=== PATIENT | male | born 1945 | race Caucasian/White ===

== ENCOUNTER → 2016-12-25 | Outpatient (CLI) | payer OTHER ==
[~2016-12-25] MED LIST: /TAMS4CA PO; /WARF25TA OR; CALTRATE PO; LEVOXYL PO; LOVA40TA PO; METF500T PO; METOPROLOL PO; PRADAXA PO; PROS5TAB PO; TOPR100T OR; VESI10TA PO; WELL75TA OR; WELL75TA PO; XARE20TA PO; [UNRECOGNIZED DRUG - OTHER] PO
--- NOTE | 2016-12-28 13:43 | SLEEPCENT ---
DATE OF STUDY: 12/25/2016 ORDERING PROVIDER: MARY GRACE Victoria Nocturnal polysomnography was performed for the titration of pressure therapy in this patient with obstructive sleep apnea syndrome, intolerant of continuous positive airway pressure (CPAP). For testing on this occasion, the patient was fit with a [employer] Simplus full face mask of medium size. An initial pressure of 5 cm was applied to the circuit, and the lights were extinguished. 7 hours and 32 minutes of data were reviewed. There were only 91 minutes of sleep identified. Sleep latency was prolonged at 52 minutes. Rapid eye movement (REM) sleep was not achieved. Sleep architecture was somewhat difficult to utility porter. There was severe fragmentation. Overall sleep efficiency was 21.6%. The patient's electrocardiogram (EKG) showed an underlying sinus rhythm with an average heart rate of 57 beats per minute. Electroencephalogram (EEG) showed no focal events. Waveforms were reasonable for sleep stages encountered. Respiratory events persisted despite optimal mask fit and minimal air leak. The patient was changed early to a bilevel device. Multiple bilevel pressures were attempted. Central events emerged at even low bilevel pressure, and optimal pressure was not achieved. However, respiratory event suppression appeared best at an inspiratory pressure of 12 over expiratory pressure of 7. Due to the emergence of central events, a backup rate was necessary. IMPRESSION: Severe complex obstructive sleep apnea syndrome (G47.31, G47.33). RECOMMENDATION: Initiation of bilevel pressure at inspiratory of 12 over expiratory of 7 with a backup rate of 6 is recommended. Given the complex nature of this patient's disease, close clinical followup will be necessary and likely, he will need additional titration or possibly titration on to a pressure-regulated volume-targeted device.
== END ==
LOC: M SLEEP 19:45
PROVIDERS: ATTEND Nurse Practitioner Adult Health
DX: G47.33 Obstructive sleep apnea (adult) (pediatric) (principal)

== ENCOUNTER → 2017-01-11 | Outpatient (REF) | payer OTHER | LOC: M LAB REF 16:26 | DX: E11.40 Type 2 diabetes mellitus with diabetic neuropathy, unspecified (principal) ==

== ENCOUNTER → 2017-08-29 | Outpatient (REF) | payer OTHER ==
[~2017-08-29] MED LIST changes: -VESI10TA PO; +VESI10TA2 PO
== END ==
LOC: M LAB REF 16:11
PROVIDERS: ATTEND Family Medicine
DX: E83.52 Hypercalcemia (principal)

== ENCOUNTER → 2017-12-21 | Outpatient (REF) | payer OTHER ==
[2017-12-21 17:07] LABS: IONIZED CALCIUM 4.9 MG/DL (4.5-5.3)
[2017-12-21 17:53] LABS: PTH INTACT 107.1 PG/ML (14.0-72.0)
== END ==
LOC: M LAB REF 16:51
DX: E83.52 Hypercalcemia (principal)

== ENCOUNTER 2018-06-19 14:41 | Inpatient (IN) | payer MEDICARE, OTHER ==
[2018-06-19 15:33] LABS: BASO % 0.2 % (0.0-1.0); EOS # 0.1 10^3/uL (0.0-0.50); EOS % 0.6 % (0.0-3.0); HEMATOCRIT 16.3 % (42.0-52.0); IMMATURE GRANULOCYTE % 1.2 % (0-3.0); LYMPH # 0.9 10^3/uL (1.5-4.5); LYMPH % 7.9 % (24.0-44.0); MEAN CORPUSCULAR HEMOGLOBIN 32.3 pg (27.0-33.0); MEAN CORPUSCULAR HGB CONC 30.7 g/dl (32.0-36.5); MEAN CORPUSCULAR VOLUME 105.2 fl (80.0-96.0); MONO # 0.9 10^3/uL (0.0-0.8); MONO % 7.8 % (0.0-5.0); NEUTROPHILS # 9.6 10^3/uL (1.8-7.7); NEUTROPHILS % 82.3 % (36.0-66.0); PLATELET COUNT, AUTOMATED 267 10^3/uL (150-450); RED BLOOD COUNT 1.55 10^6/uL (4.30-6.10); RED CELL DISTRIBUTION WIDTH 17.2 % (11.5-14.5); WHITE BLOOD COUNT 11.6 10^3/uL (4.0-10.0)
[2018-06-19 15:43] LABS: ANION GAP 10 MEQ/L (8-16); BLOOD UREA NITROGEN 50 MG/DL (7-18); CALCIUM LEVEL 9.6 MG/DL (8.8-10.2); CARBON DIOXIDE LEVEL 21 MEQ/L (21-32); CHLORIDE LEVEL 109 MEQ/L (98-107); CREATININE FOR GFR 2.48 MG/DL (0.70-1.30); GLOMERULAR FILTRATION RATE 27.2 (>42); GLUCOSE, FASTING 112 MG/DL (70-100); SODIUM LEVEL 140 MEQ/L (136-145)
[2018-06-19] MEDS: NS 500 ML IV (15:45)
[2018-06-19 15:47] LABS: POTASSIUM SERUM 7.5 MEQ/L (3.5-5.1)
[2018-06-19 15:52] LABS: INR 1.09; PROTHROMBIN TIME 14.2 SECONDS (12.1-14.4)
[2018-06-19] MEDS: PANTOPRAZOLE SODIUM 40 MG in D5W 50 ML IV ×3 (16:03→22:55)
[2018-06-19] MEDS: PANTOPRAZOLE 40MG INJ (PROTONIX) (C9113) IV (16:03)
[2018-06-19 16:53] LABS: LACTIC ACID SEPSIS PROTOCOL 1.5 MMOL/L (0.4-2.0)
[2018-06-19 16:53] LABS: SLIDE REVIEW Report; SOURCE PERIPHERAL SMEAR
[2018-06-19 16:54] LABS: ALBUMIN 3.4 GM/DL (3.2-5.2); ALBUMIN/GLOBULIN RATIO 1.17 (1.00-1.93); ALKALINE PHOSPHATASE 52 U/L (45-117); ALT/SGPT 14 U/L (12-78); AST/SGOT 14 U/L (7-37); BILIRUBIN,DIRECT 0.1 MG/DL (0.0-0.2); BILIRUBIN,TOTAL 0.4 MG/DL (0.2-1.0); CK-MB VALUE MASS 4.5 NG/ML (<3.6); CPK CREATINE PHOSPHOKINASE 91 U/L (39-308); MB/CK RELATIVE INDEX 4.94 (< OR =4); REASON FOR REVIEW RBC MORPHOLOGY; TOTAL PROTEIN 6.3 GM/DL (6.4-8.2); TROPONIN I 0.32 NG/ML (< 0.10)
[2018-06-19] MEDS: GABAPENTIN 300 MG CAP PO ×2 (17:00→20:23)
[2018-06-19 17:01] LABS: POTASSIUM SERUM 5.7 MEQ/L (3.5-5.1)
[2018-06-19] MEDS ORDERED: ONDANSETRON 4MG/2ML VIAL (J2405) IV (17:45)
[2018-06-19] MEDS: HumaLOG INSULIN (NovoLOG) PER UNIT SC ×2 (18:00→23:52)
[2018-06-19] MEDS ORDERED: GLUCAGON FOR INJ 1 MG VIAL (J1610) SC (19:00)
[2018-06-19] MEDS ORDERED: DEXTROSE 50% 50 ML SYRINGE IV (19:00)
[2018-06-19] MEDS ORDERED: GLUCOSE 4 GM CHEW TABLET PO (19:00)
[2018-06-19 20:09] LABS: BEDSIDE GLUCOSE 100 MG/DL (83-110)
[2018-06-19] MEDS ORDERED: ALLOPURINOL 100 MG TAB PO (21:00)
[2018-06-19 21:20] LABS: OSMOLALITY URINE 523 MOSM/KG (500-800)
[2018-06-19 21:33] LABS: APPEARANCE, URINE CLEAR (CLEAR); BACTERIA, URINE AUTO NEGATIVE (NEGATIVE); BILIRUBIN, URINE AUTO NEGATIVE (NEGATIVE); BLOOD, URINE BLOOD NEGATIVE (NEGATIVE); COLOR, URINE YELLOW (YELLOW); GLUCOSE, URINE (UA) AUTO NEGATIVE (NEGATIVE); KETONE, URINE AUTO NEGATIVE (NEGATIVE); LEUKOCYTE ESTERASE, URINE AUTO NEGATIVE (NEGATIVE); MUCUS, URINE SMALL (NEGATIVE); NITRITE, URINE AUTO NEGATIVE (NEGATIVE); PROTEIN, URINE AUTO NEGATIVE (NEGATIVE); RBC, URINE AUTO 0 /HPF (0-3); SPECIFIC GRAVITY URINE AUTO 1.014 (1.002-1.035); SQUAMOUS EPITHELIAL CELL UR AU 0 /HPF (0-6); UROBILINOGEN, URINE AUTO 0.2 mg/dL (0.0-2.0); WBC, URINE AUTO 2 /HPF (0-3)
[2018-06-19 22:15] LABS: CHLORIDE,RANDOM URINE 80 MEQ/L; POTASSIUM RANDOM URINE 64.3 MEQ/L; SODIUM,RANDOM URINE 71 MEQ/L
[2018-06-19 23:15] LABS: CPK CREATINE PHOSPHOKINASE 100 U/L (39-308); FREE THYROXINE INDEX 1.2 % (1.4-3.8); T UPTAKE 33 % (33-40); THYROXINE (T4) 3.5 UG/DL (4.5-12.0); TROPONIN I 0.35 NG/ML (< 0.10)
[2018-06-19 23:20] LABS: CK-MB VALUE MASS 3.8 NG/ML (<3.6)
[2018-06-19 23:26] LABS: BEDSIDE GLUCOSE 91 MG/DL (83-110)
[2018-06-20 01:37] LABS: ANION GAP 9 MEQ/L (8-16); BLOOD UREA NITROGEN 52 MG/DL (7-18); CARBON DIOXIDE LEVEL 22 MEQ/L (21-32); CHLORIDE LEVEL 110 MEQ/L (98-107); GLOMERULAR FILTRATION RATE 26.9 (>42); GLUCOSE, FASTING 92 MG/DL (70-100); SODIUM LEVEL 141 MEQ/L (136-145)
[2018-06-20 01:38] LABS: POTASSIUM SERUM 5.3 MEQ/L (3.5-5.1)
[2018-06-20] MEDS: PANTOPRAZOLE SODIUM 40 MG in D5W 50 ML IV ×5 (03:56→23:03)
[2018-06-20 04:09] LABS: HEMATOCRIT 24.5 % (42.0-52.0)
[2018-06-20 04:28] LABS: ANION GAP 8 MEQ/L (8-16); BLOOD UREA NITROGEN 49 MG/DL (7-18); CALCIUM LEVEL 8.5 MG/DL (8.8-10.2); CARBON DIOXIDE LEVEL 23 MEQ/L (21-32); CHLORIDE LEVEL 112 MEQ/L (98-107); CK-MB VALUE MASS 4.2 NG/ML (<3.6); CPK CREATINE PHOSPHOKINASE 116 U/L (39-308); CREATININE FOR GFR 2.38 MG/DL (0.70-1.30); GLOMERULAR FILTRATION RATE 28.5 (>42); GLUCOSE, FASTING 85 MG/DL (70-100); MB/CK RELATIVE INDEX 3.62 (< OR =4); SODIUM LEVEL 143 MEQ/L (136-145); TROPONIN I 0.42 NG/ML (< 0.10)
[2018-06-20 04:30] LABS: POTASSIUM SERUM 5.2 MEQ/L (3.5-5.1)
[2018-06-20] MEDS: HumaLOG INSULIN (NovoLOG) PER UNIT SC ×4 (05:03→21:00)
[2018-06-20] MEDS: LEVOTHYROXINE 88MCG TABLET (0.088 MG) PO (05:16)
[2018-06-20 08:32] LABS: BASO % 0.4 % (0.0-1.0); EOS # 0.3 10^3/uL (0.0-0.50); EOS % 2.4 % (0.0-3.0); HEMATOCRIT 24.3 % (42.0-52.0); HEMOGLOBIN 8.2 g/dl (13.5-17.5); IMMATURE GRANULOCYTE % 0.7 % (0-3.0); LYMPH # 1.1 10^3/uL (1.5-4.5); LYMPH % 10.4 % (24.0-44.0); MEAN CORPUSCULAR HEMOGLOBIN 32.2 pg (27.0-33.0); MEAN CORPUSCULAR HGB CONC 33.7 g/dl (32.0-36.5); MEAN CORPUSCULAR VOLUME 95.3 fl (80.0-96.0); MONO # 0.8 10^3/uL (0.0-0.8); MONO % 7.8 % (0.0-5.0); NEUTROPHILS % 78.3 % (36.0-66.0); PLATELET COUNT, AUTOMATED 190 10^3/uL (150-450); RED BLOOD COUNT 2.55 10^6/uL (4.30-6.10); RED CELL DISTRIBUTION WIDTH 16.1 % (11.5-14.5); WHITE BLOOD COUNT 10.2 10^3/uL (4.0-10.0)
[2018-06-20] MEDS: METOPROLOL SUCC (TopROL XL) 100MG *XL* TAB PO ×2 (08:55→20:12)
[2018-06-20] MEDS: SOLIFENACIN 5 MG TAB PO (08:55)
[2018-06-20] MEDS: GABAPENTIN 300 MG CAP PO ×4 (08:55→20:12)
[2018-06-20 08:58] LABS: IMMEDIATE SPIN CROSSMATCH 1 6
[2018-06-20 09:02] LABS: ALBUMIN 3.3 GM/DL (3.2-5.2); ALBUMIN/GLOBULIN RATIO 1.06 (1.00-1.93); ALKALINE PHOSPHATASE 50 U/L (45-117); ALT/SGPT 14 U/L (12-78); ANION GAP 8 MEQ/L (8-16); AST/SGOT 16 U/L (7-37); BILIRUBIN,TOTAL 0.7 MG/DL (0.2-1.0); BLOOD UREA NITROGEN 48 MG/DL (7-18); CALCIUM LEVEL 8.6 MG/DL (8.8-10.2); CARBON DIOXIDE LEVEL 24 MEQ/L (21-32); CHLORIDE LEVEL 110 MEQ/L (98-107); CREATININE FOR GFR 2.41 MG/DL (0.70-1.30); GLOMERULAR FILTRATION RATE 28.1 (>42); GLUCOSE, FASTING 93 MG/DL (70-100); MAGNESIUM LEVEL 1.9 MG/DL (1.8-2.4); PHOSPHORUS LEVEL 3.1 MG/DL (2.5-4.9); SODIUM LEVEL 142 MEQ/L (136-145); TOTAL PROTEIN 6.4 GM/DL (6.4-8.2)
[2018-06-20 10:12] LABS: ESTIMATED AVERAGE GLUCOSE 94 MG/DL (60-110); HEMOGLOBIN A1c 4.9 %
[2018-06-20 12:06] LABS: BEDSIDE GLUCOSE 92 MG/DL (83-110)
[2018-06-20 12:17] LABS: HEMATOCRIT 29.5 % (42.0-52.0); HEMOGLOBIN 9.7 g/dl (13.5-17.5)
[2018-06-20 12:32] LABS: ANION GAP 7 MEQ/L (8-16); BLOOD UREA NITROGEN 46 MG/DL (7-18); CALCIUM LEVEL 8.6 MG/DL (8.8-10.2); CARBON DIOXIDE LEVEL 24 MEQ/L (21-32); CHLORIDE LEVEL 110 MEQ/L (98-107); CREATININE FOR GFR 2.29 MG/DL (0.70-1.30); GLOMERULAR FILTRATION RATE 29.8 (>42); GLUCOSE, FASTING 91 MG/DL (70-100); SODIUM LEVEL 141 MEQ/L (136-145)
[2018-06-20 12:38] LABS: CK-MB VALUE MASS 3.7 NG/ML (<3.6); CPK CREATINE PHOSPHOKINASE 142 U/L (39-308); TROPONIN I 0.32 NG/ML (< 0.10)
[2018-06-20 12:44] LABS: POTASSIUM SERUM 5.4 MEQ/L (3.5-5.1)
[2018-06-20 12:54] LABS: CREATININE,RANDOM URINE 91.6 MG/DL
[2018-06-20 12:54] LABS: SODIUM,RANDOM URINE 114 MEQ/L
[2018-06-20] MEDS: FINASTERIDE 5 MG TAB PO (13:00)
[2018-06-20] MEDS: TAMSULOSIN 0.4 MG CAP PO (13:00)
[2018-06-20 16:36] LABS: HEMATOCRIT 29.6 % (42.0-52.0); HEMOGLOBIN 9.9 g/dl (13.5-17.5)
[2018-06-20] MEDS ORDERED: PROPOFOL 200 MG/20 ML VIAL As Ordered ×2 (18:23)
[2018-06-20] MEDS ORDERED: LIDOCAINE 2% INJ 100 MG/5 ML SDV (FOR ANES.) As Ordered (18:23)
[2018-06-20] MEDS ORDERED: fentaNYL 100 MCG/2 ML INJECTION (J3010) As Ordered (18:23)
[2018-06-20] MEDS ORDERED: PHENYLephrine HCL 500 MCG/5 ML (100MCG/ML) SYRINGE (J2370) As Ordered ×2 (18:24→18:28)
[2018-06-20] MEDS ORDERED: ePHEDrine SULFATE 25 MG/5 ML(5MG/ML) SYRINGE As Ordered (18:44)
[2018-06-20] MEDS: LR 1,000 ML IV (19:00)
[2018-06-20 19:11] LABS: BEDSIDE GLUCOSE 88 MG/DL (83-110)
[2018-06-20 19:59] LABS: HEMOGLOBIN 9.3 g/dl (13.5-17.5)
[2018-06-20] MEDS: ATORVASTATIN 20 MG TAB PO (20:12)
[2018-06-20 21:14] LABS: BEDSIDE GLUCOSE 88 MG/DL (83-110)
[2018-06-21 00:16] LABS: HEMATOCRIT 26.5 % (42.0-52.0); HEMOGLOBIN 8.8 g/dl (13.5-17.5)
[2018-06-21 04:07] LABS: HEMATOCRIT 26.6 % (42.0-52.0); HEMOGLOBIN 8.6 g/dl (13.5-17.5)
[2018-06-21] MEDS: PANTOPRAZOLE SODIUM 40 MG in D5W 50 ML IV (04:09)
[2018-06-21] MEDS: LEVOTHYROXINE 88MCG TABLET (0.088 MG) PO (05:09)
[2018-06-21] MEDS: HumaLOG INSULIN (NovoLOG) PER UNIT SC ×4 (07:30→20:12)
[2018-06-21 07:39] LABS: BEDSIDE GLUCOSE 86 MG/DL (83-110)
[2018-06-21 07:49] LABS: BASO % 0.4 % (0.0-1.0); EOS # 0.3 10^3/uL (0.0-0.50); EOS % 4.1 % (0.0-3.0); HEMOGLOBIN 8.8 g/dl (13.5-17.5); IMMATURE GRANULOCYTE % 0.6 % (0-3.0); LYMPH # 0.9 10^3/uL (1.5-4.5); LYMPH % 11.5 % (24.0-44.0); MEAN CORPUSCULAR HEMOGLOBIN 31.5 pg (27.0-33.0); MEAN CORPUSCULAR HGB CONC 32.6 g/dl (32.0-36.5); MEAN CORPUSCULAR VOLUME 96.8 fl (80.0-96.0); MONO # 0.7 10^3/uL (0.0-0.8); MONO % 8.9 % (0.0-5.0); NEUTROPHILS % 74.5 % (36.0-66.0); PLATELET COUNT, AUTOMATED 169 10^3/uL (150-450); RED BLOOD COUNT 2.79 10^6/uL (4.30-6.10); RED CELL DISTRIBUTION WIDTH 15.6 % (11.5-14.5); WHITE BLOOD COUNT 8.1 10^3/uL (4.0-10.0)
[2018-06-21 08:32] LABS: ALKALINE PHOSPHATASE 50 U/L (45-117); ALT/SGPT 15 U/L (12-78); ANION GAP 10 MEQ/L (8-16); AST/SGOT 21 U/L (7-37); BILIRUBIN,TOTAL 0.7 MG/DL (0.2-1.0); BLOOD UREA NITROGEN 36 MG/DL (7-18); CALCIUM LEVEL 8.1 MG/DL (8.8-10.2); CARBON DIOXIDE LEVEL 22 MEQ/L (21-32); CHLORIDE LEVEL 109 MEQ/L (98-107); CREATININE FOR GFR 2.01 MG/DL (0.70-1.30); GLOMERULAR FILTRATION RATE 34.6 (>42); GLUCOSE, FASTING 84 MG/DL (70-100); POTASSIUM SERUM 4.4 MEQ/L (3.5-5.1); SODIUM LEVEL 141 MEQ/L (136-145)
[2018-06-21] MEDS: SOLIFENACIN 5 MG TAB PO (08:33)
[2018-06-21] MEDS: FINASTERIDE 5 MG TAB PO (08:33)
[2018-06-21] MEDS: SUCRALFATE 1 GM TAB PO ×4 (08:34→20:12)
[2018-06-21] MEDS: PANTOPRAZOLE 40MG TAB (PROTONIX) PO ×2 (08:34→20:12)
[2018-06-21] MEDS: GABAPENTIN 300 MG CAP PO ×4 (08:34→20:12)
[2018-06-21] MEDS: TAMSULOSIN 0.4 MG CAP PO (08:34)
[2018-06-21] MEDS: METOPROLOL SUCC (TopROL XL) 100MG *XL* TAB PO ×2 (08:34→20:14)
[2018-06-21 11:34] LABS: BEDSIDE GLUCOSE 81 MG/DL (83-110)
[2018-06-21 14:43] LABS: HEMATOCRIT 29.2 % (42.0-52.0); HEMOGLOBIN 9.7 g/dl (13.5-17.5)
[2018-06-21 15:14] LABS: TROPONIN I 0.19 NG/ML (< 0.10)
[2018-06-21] MEDS ORDERED: SLF 3 ML SYR IV (16:00)
[2018-06-21] MEDS ORDERED: SODIUM CHLORIDE 0.9% INJ 10 ML SYR IV (16:00)
[2018-06-21 17:26] LABS: BEDSIDE GLUCOSE 108 MG/DL (83-110)
[2018-06-21 20:06] LABS: BEDSIDE GLUCOSE 101 MG/DL (83-110)
[2018-06-21] MEDS: ATORVASTATIN 20 MG TAB PO (20:12)
[2018-06-21] MEDS: SLF 3 ML SYR IV (20:21)
[2018-06-21] MEDS: SODIUM CHLORIDE 0.9% INJ 10 ML SYR IV (20:21)
[2018-06-21 20:41] LABS: HEMATOCRIT 29.9 % (42.0-52.0); HEMOGLOBIN 9.7 g/dl (13.5-17.5)
[2018-06-22 03:42] LABS: BASO % 0.4 % (0.0-1.0); EOS # 0.5 10^3/uL (0.0-0.50); EOS % 4.5 % (0.0-3.0); HEMATOCRIT 28.2 % (42.0-52.0); HEMOGLOBIN 9.2 g/dl (13.5-17.5); IMMATURE GRANULOCYTE % 0.5 % (0-3.0); LYMPH % 9.7 % (24.0-44.0); MEAN CORPUSCULAR HEMOGLOBIN 31.5 pg (27.0-33.0); MEAN CORPUSCULAR HGB CONC 32.6 g/dl (32.0-36.5); MEAN CORPUSCULAR VOLUME 96.6 fl (80.0-96.0); MONO # 0.9 10^3/uL (0.0-0.8); MONO % 9.1 % (0.0-5.0); NEUTROPHILS # 7.7 10^3/uL (1.8-7.7); NEUTROPHILS % 75.8 % (36.0-66.0); PLATELET COUNT, AUTOMATED 185 10^3/uL (150-450); RED BLOOD COUNT 2.92 10^6/uL (4.30-6.10); RED CELL DISTRIBUTION WIDTH 14.9 % (11.5-14.5); WHITE BLOOD COUNT 10.1 10^3/uL (4.0-10.0)
[2018-06-22 04:12] LABS: ALBUMIN/GLOBULIN RATIO 0.97 (1.00-1.93); ALKALINE PHOSPHATASE 61 U/L (45-117); ALT/SGPT 18 U/L (12-78); ANION GAP 9 MEQ/L (8-16); AST/SGOT 26 U/L (7-37); BILIRUBIN,TOTAL 0.5 MG/DL (0.2-1.0); BLOOD UREA NITROGEN 30 MG/DL (7-18); CALCIUM LEVEL 7.8 MG/DL (8.8-10.2); CARBON DIOXIDE LEVEL 24 MEQ/L (21-32); CHLORIDE LEVEL 107 MEQ/L (98-107); CREATININE FOR GFR 2.02 MG/DL (0.70-1.30); GLOMERULAR FILTRATION RATE 34.5 (>42); GLUCOSE, FASTING 89 MG/DL (70-100); MAGNESIUM LEVEL 1.9 MG/DL (1.8-2.4); POTASSIUM SERUM 4.5 MEQ/L (3.5-5.1); SODIUM LEVEL 140 MEQ/L (136-145); TOTAL PROTEIN 6.1 GM/DL (6.4-8.2)
[2018-06-22] MEDS: SLF 3 ML SYR IV (06:43)
[2018-06-22] MEDS: SUCRALFATE 1 GM TAB PO ×2 (06:43→12:15)
[2018-06-22] MEDS: SODIUM CHLORIDE 0.9% INJ 10 ML SYR IV (06:43)
[2018-06-22] MEDS: LEVOTHYROXINE 88MCG TABLET (0.088 MG) PO (06:43)
[2018-06-22] MEDS: HumaLOG INSULIN (NovoLOG) PER UNIT SC ×2 (07:30→12:00)
[2018-06-22 08:45] LABS: BEDSIDE GLUCOSE 96 MG/DL (83-110)
[2018-06-22] MEDS: GABAPENTIN 300 MG CAP PO ×2 (08:49→12:15)
[2018-06-22] MEDS: TAMSULOSIN 0.4 MG CAP PO (08:49)
[2018-06-22] MEDS: SOLIFENACIN 5 MG TAB PO (08:49)
[2018-06-22] MEDS: FINASTERIDE 5 MG TAB PO (08:49)
[2018-06-22] MEDS: PANTOPRAZOLE 40MG TAB (PROTONIX) PO (08:49)
[2018-06-22] MEDS: METOPROLOL SUCC (TopROL XL) 100MG *XL* TAB PO (08:54)
[2018-06-22 12:10] LABS: BEDSIDE GLUCOSE 95 MG/DL (83-110)
== END 2018-06-22 13:46 | disposition home or self-care (01) | DRG 377 ==
LOC: M PCU 06-21 15:40 → M ED 14:41 → M ED INP 17:44 → M ICU 19:18
PROC: 0W3P8ZZ Control Bleeding in Gastrointestinal Tract, Via Natural or Artificial Opening Endoscopic (ICD-10-PCS; principal; 2018-06-20 16:30)
PROC: 02HV33Z Insertion of Infusion Device into Superior Vena Cava, Percutaneous Approach (ICD-10-PCS; 2018-06-20 18:06)
PROC: 30233N1 Transfusion of Nonautologous Red Blood Cells into Peripheral Vein, Percutaneous Approach (ICD-10-PCS; 2018-06-20 18:06)
DX: K31.811 Angiodysplasia of stomach and duodenum with bleeding (principal); R57.8 Other shock; D62 Acute posthemorrhagic anemia; N17.9 Acute kidney failure, unspecified; I48.0 Paroxysmal atrial fibrillation; I25.10 Atherosclerotic heart disease of native coronary artery without angina pectoris; M81.0 Age-related osteoporosis without current pathological fracture; N18.3 Chronic kidney disease, stage 3 (moderate); G47.33 Obstructive sleep apnea (adult) (pediatric); E03.9 Hypothyroidism, unspecified; E87.5 Hyperkalemia; N40.1 Benign prostatic hyperplasia with lower urinary tract symptoms; J44.9 Chronic obstructive pulmonary disease, unspecified; G25.81 Restless legs syndrome; E11.51 Type 2 diabetes mellitus with diabetic peripheral angiopathy without gangrene; Z87.891 Personal history of nicotine dependence; Z79.01 Long term (current) use of anticoagulants; Z79.899 Other long term (current) drug therapy; I25.2 Old myocardial infarction; Z95.1 Presence of aortocoronary bypass graft; Z91.19 Patient's noncompliance with other medical treatment and regimen; E11.22 Type 2 diabetes mellitus with diabetic chronic kidney disease; M1A.30X0 Chronic gout due to renal impairment, unspecified site, without tophus (tophi)

== ENCOUNTER → 2018-06-30 | Outpatient (REF) | payer MEDICARE, OTHER ==
[2018-06-30 13:52] LABS: VITAMIN B12 LEVEL 409 PG/ML
[2018-06-30 14:01] LABS: FERRITIN 12 NG/ML (26-388); IRON (FE) 25 UG/DL (65-175); PERCENT SATURATION 6.1 % (19.7-50.0); TOTAL IRON BINDING CAPACITY 412 UG/DL (250-450)
== END ==
LOC: M LAB REF 13:22
DX: D64.9 Anemia, unspecified (principal)
CPT/HCPCS: 82746

== ENCOUNTER → 2018-08-04 | Outpatient (REF) | payer OTHER ==
[2018-08-04 14:00] LABS: APPEARANCE, URINE CLEAR (CLEAR); BACTERIA, URINE AUTO NEGATIVE (NEGATIVE); BILIRUBIN, URINE AUTO NEGATIVE (NEGATIVE); BLOOD, URINE BLOOD NEGATIVE (NEGATIVE); COLOR, URINE YELLOW (YELLOW); GLUCOSE, URINE (UA) AUTO NEGATIVE (NEGATIVE); KETONE, URINE AUTO NEGATIVE (NEGATIVE); LEUKOCYTE ESTERASE, URINE AUTO NEGATIVE (NEGATIVE); MUCUS, URINE SMALL (NEGATIVE); NITRITE, URINE AUTO NEGATIVE (NEGATIVE); PROTEIN, URINE AUTO NEGATIVE (NEGATIVE); RBC, URINE AUTO 2 /HPF (0-3); SPECIFIC GRAVITY URINE AUTO 1.019 (1.002-1.035); SQUAMOUS EPITHELIAL CELL UR AU 0 /HPF (0-6); UROBILINOGEN, URINE AUTO 0.2 mg/dL (0.0-2.0); WBC, URINE AUTO 1 /HPF (0-3)
== END ==
LOC: M SMT 13:08
DX: N40.1 Benign prostatic hyperplasia with lower urinary tract symptoms (principal)

== ENCOUNTER 2018-08-08 08:25 | Day surgery (SDC) | payer OTHER, MEDICARE ==
[~2018-08-08 08:25] MED LIST changes: -/TAMS4CA PO; -/WARF25TA OR; -CALTRATE PO; -LEVOXYL PO; -LOVA40TA PO; -METF500T PO; -METOPROLOL PO; +PHENYLEPHRINE HCL 10 % OPHTH. SOL 5ML OS; -PRADAXA PO; -PROS5TAB PO; -TOPR100T OR; -VESI10TA2 PO; -WELL75TA OR; -WELL75TA PO; -XARE20TA PO; -[UNRECOGNIZED DRUG - OTHER] PO
[2018-08-08 09:45] LABS: BEDSIDE GLUCOSE 105 MG/DL (83-110)
[2018-08-08] MEDS: PHENYLEPHRINE 2.5% OPHTH SOL 2ML OS (09:45)
[2018-08-08] MEDS: TROPICAMIDE 1% OPHTH SOLN 2ML OS (09:45)
[2018-08-08] MEDS: OFLOXACIN 0.3 % (OCUFLOX) OPTH SOL 5ML OS (09:45)
[2018-08-08] MEDS: CYCLOPENTOLATE 2% OPHTH SOLN 2ML BTL OS (09:45)
[2018-08-08] MEDS: LIDOCAINE 3.5 % 1ML OPHTH TOPICAL GEL OU (09:46)
[2018-08-08] MEDS ORDERED: MIDAZOLAM INJ 2 MG/2 ML VIAL (J2250) As Ordered (10:11)
[2018-08-08] MEDS: POVIDONE-IODINE 5% OPHTH PREP SOL 30ML As Ordered (10:54)
[2018-08-08] MEDS: LIDOCAINE 1% SDV 5 ML VIAL As Ordered (11:05)
[2018-08-08] MEDS: BSS with VANC/TOB/EPI for EYE CASES IR (11:05)
[2018-08-08] MEDS: HEALON DUET (HEALON 10MG/ML 0.55ML & HEALON ENDOCOAT 30MG/ML 0.85ML) As Ordered (11:07)
[2018-08-08] MEDS: TRIAMCINOLONE PRES FR 40 MG/ML 1ML(TRIESENCE)(OR EYE ONLY)(J3300 PER 1MG) As Ordered (11:09)
[2018-08-08] MEDS: MOXIFLOXACIN IN BSS 0.25MG/0.25ML INTRACAMERAL INJ (OR EYE ONLY)(J2280) As Ordered (11:10)
== END 2018-08-08 12:02 | disposition home or self-care (01) ==
LOC: M SDC 08:25
DX: H25.9 Unspecified age-related cataract (principal); I25.10 Atherosclerotic heart disease of native coronary artery without angina pectoris; I25.2 Old myocardial infarction; I10 Essential (primary) hypertension; E03.9 Hypothyroidism, unspecified; N40.0 Benign prostatic hyperplasia without lower urinary tract symptoms; Z79.02 Long term (current) use of antithrombotics/antiplatelets; Z79.899 Other long term (current) drug therapy; G47.30 Sleep apnea, unspecified; E11.9 Type 2 diabetes mellitus without complications
CPT/HCPCS: 66984

== ENCOUNTER 2018-08-16 08:14 | Day surgery (SDC) | payer OTHER, MEDICARE ==
[~2018-08-16 08:14] MED LIST changes: +ACETAMINOPHEN 325 MG TAB PO; +PHENYLEPHRINE HCL 10 % OPHTH. SOL 5ML OD; -PHENYLEPHRINE HCL 10 % OPHTH. SOL 5ML OS
[2018-08-16] MEDS: CYCLOPENTOLATE 2% OPHTH SOLN 2ML BTL OD (08:39)
[2018-08-16] MEDS: PHENYLEPHRINE 2.5% OPHTH SOL 2ML OD (08:40)
[2018-08-16] MEDS: LIDOCAINE 3.5 % 1ML OPHTH TOPICAL GEL OU (08:40)
[2018-08-16] MEDS: OFLOXACIN 0.3 % (OCUFLOX) OPTH SOL 5ML OD (08:40)
[2018-08-16] MEDS: TROPICAMIDE 1% OPHTH SOLN 2ML OD (08:40)
[2018-08-16] MEDS ORDERED: MIDAZOLAM INJ 2 MG/2 ML VIAL (J2250) As Ordered (09:01)
[2018-08-16] MEDS ORDERED: fentaNYL 100 MCG/2 ML INJECTION (J3010) As Ordered (09:01)
[2018-08-16] MEDS: TRIAMCINOLONE PRES FR 40 MG/ML 1ML(TRIESENCE)(OR EYE ONLY)(J3300 PER 1MG) As Ordered (09:28)
[2018-08-16] MEDS: LIDOCAINE 1% SDV 5 ML VIAL As Ordered (09:28)
[2018-08-16] MEDS: POVIDONE-IODINE 5% OPHTH PREP SOL 30ML As Ordered (09:28)
[2018-08-16] MEDS: HEALON DUET (HEALON 10MG/ML 0.55ML & HEALON ENDOCOAT 30MG/ML 0.85ML) As Ordered (09:29)
[2018-08-16] MEDS: MOXIFLOXACIN IN BSS 0.25MG/0.25ML INTRACAMERAL INJ (OR EYE ONLY)(J2280) As Ordered (09:29)
[2018-08-16] MEDS: BSS with VANC/TOB/EPI for EYE CASES IR (09:29)
[2018-08-16] MEDS: ACETYLCHOLINE OPHTH SOLN 1% 2ML (MIOCHOL-E) As Ordered (09:32)
[2018-08-16] MEDS ORDERED: TRIMETHOBENZAMIDE 300 MG CAP PO (10:00)
[2018-08-16] MEDS: AcetaZOLAMIDE 500 MG ER CAP PO (10:02)
== END 2018-08-16 10:30 | disposition home or self-care (01) ==
LOC: M SDC 08:14
DX: H25.9 Unspecified age-related cataract (principal); H21.81 Floppy iris syndrome; M60.9 Myositis, unspecified; I25.2 Old myocardial infarction; I25.10 Atherosclerotic heart disease of native coronary artery without angina pectoris; I10 Essential (primary) hypertension; E11.9 Type 2 diabetes mellitus without complications; G47.30 Sleep apnea, unspecified; Z79.02 Long term (current) use of antithrombotics/antiplatelets; E03.9 Hypothyroidism, unspecified; N40.0 Benign prostatic hyperplasia without lower urinary tract symptoms
CPT/HCPCS: 66982

== ENCOUNTER 2018-10-24 12:48 | Day surgery (SDC) | payer OTHER ==
[~2018-10-24 12:48] MED LIST changes: -ACETAMINOPHEN 325 MG TAB PO; +LIDOCAINE 2% INJ 100 MG/5 ML SDV (FOR ANES.) As Ordered; -PHENYLEPHRINE HCL 10 % OPHTH. SOL 5ML OD; +PROPOFOL 200 MG/20 ML VIAL As Ordered
[2018-10-24] MEDS: NS 1,000 ML IV (13:41)
== END 2018-10-24 15:16 | disposition home or self-care (01) ==
LOC: M OPP 15:16
DX: D50.9 Iron deficiency anemia, unspecified (principal); I50.20 Unspecified systolic (congestive) heart failure; F32.9 Major depressive disorder, single episode, unspecified; I25.9 Chronic ischemic heart disease, unspecified; E07.9 Disorder of thyroid, unspecified; J44.9 Chronic obstructive pulmonary disease, unspecified
CPT/HCPCS: 43239

== ENCOUNTER → 2021-02-18 | Outpatient (CLI) | payer OTHER ==
[~2021-02-18] MED LIST changes: +ALEV220T26 PO; +ALLO10TA PO; +CALTRATE PO; +CALTTAB5 PO; +COUM1TAB18 OR; +DOXY1CAP60 PO; +ENAL1TAB46 PO; +ENAL5TA PO; +FINA5TAB2 PO; +FLOM0.4C39 PO; +GABA-282 PO; +LEVO88TA24 PO; +LEVOXYL PO; -LIDOCAINE 2% INJ 100 MG/5 ML SDV (FOR ANES.) As Ordered; +LOVA40TA PO; +METF500T PO; +METO-745 PO; +METO50TA7 PO; +METOPROLOL PO; +PRADAXA PO; -PROPOFOL 200 MG/20 ML VIAL As Ordered; +PROS5TAB PO; +VESI10TA2 PO; +WELL75TA OR; +WELL75TA PO; +XARE15TA PO; +XARE20TA PO; +[UNRECOGNIZED DRUG - OTHER] PO
--- NOTE | 2021-02-18 19:16 | REP ---
INDICATION: ACUTE KIDNEY FAILURE, KIDNEY FAILURE. COMPARISON: 06/20/2018. TECHNIQUE: Multiple sonographic images of the kidneys. FINDINGS: The right kidney measures 9.3 x 4.4 x 5.4 cm. The left kidney measures 10.2 x 3.6 x 4.3 cm. The kidneys are in the low normal size range. There is no hydronephrosis or hydroureter on the right or the left. There are no renal calculi. There are no solid or cystic renal masses except for a 6 mm Bosniak type 1 cyst in the lower pole of the left kidney laterally. IMPRESSION: 6 mm left renal cortical cyst. The kidneys are in the low normal size range. Otherwise, negative renal ultrasound. <Electronically signed by Ash Mcdonough > 02/18/21 [id number]
--- NOTE | 2021-02-18 19:19 | REP ---
INDICATION: ACUTE KIDNEY FAILURE, KIDNEY FAILURE. COMPARISON: None. TECHNIQUE: Multiple sonographic images of the bladder. FINDINGS: The prevoid bladder volume is 68 mL. The bladder is incompletely filled. No ureteral jets could be identified. No definite bladder wall nodules or masses are identified, however, the study is insensitive as the bladder is nondistended. The postvoid bladder volume is 12 mL. The post void residual is 18%, however, this is artifactually high because the bladder is incompletely filled on the prevoid study. IMPRESSION: Incompletely filled bladder on the prevoid study. Therefore evaluation of ureteral jets, nodules or masses is insensitive and the postvoid residual % is artifactually high. <Electronically signed by Ash Mcdonough > 02/18/21 [id number]
== END ==
LOC: M RAD 10:54
PROVIDERS: ATTEND Internal Medicine Nephrology
DX: N28.1 Cyst of kidney, acquired (principal); N17.9 Acute kidney failure, unspecified; I12.9 Hypertensive chronic kidney disease with stage 1 through stage 4 chronic kidney disease, or unspecified chronic kidney disease; R31.9 Hematuria, unspecified; I48.20 Chronic atrial fibrillation, unspecified

== ENCOUNTER → 2021-02-27 | Outpatient (REF) | payer OTHER ==
[2021-02-27 19:18] LABS: COMPLEMENT C3 120 MG/DL (90-180); COMPLEMENT C4 27 MG/DL (10-40); TOTAL PROTEIN 7.7 GM/DL (6.4-8.2)
[2021-02-27 19:30] LABS: HEPATITIS B SURFACE ANTIBODY NEGATIVE (POSITIVE)
[2021-02-27 19:40] LABS: HEPATITIS B SURFACE ANTIGEN NEGATIVE (NEGATIVE)
[2021-02-27 20:08] LABS: HEPATITIS C VIRUS ABY INDEX < 0.0 INDEX (<0.8)
[2021-02-27 20:09] LABS: HEPATITIS B CORE ANTIBODY IGM NEGATIVE (NEGATIVE)
[2021-03-02 11:00] LABS: ALBUMIN 3.84 GM/DL (3.29-5.55); ALBUMIN % 49.9 % (55.8-66.1); ALPHA-1-GLOBULIN % 4.9 % (2.9-4.9); ALPHA-1-GLOBULINS 0.38 GM/DL (0.17-0.41); ALPHA-2-GLOBULINS 1.15 GM/DL (0.42-0.99); ALPHA-2-GLOBULINS % 14.9 % (7.1-11.8); BETA-1-GLOBULINS 0.46 GM/DL (0.28-0.60)
[2021-03-02 11:01] LABS: BETA-2-GLOBULINS 0.69 GM/DL (0.19-0.55); GAMMA GLOBULIN % 15.3 % (11.1-18.8); GAMMA GLOBULINS 1.18 GM/DL (0.65-1.58)
[2021-03-04 17:09] LABS: ANCA-ATYPICAL <1:20 titer (Neg:<1:20); ANTI DOUBLE STRAND-DNA AB <1 IU/mL (0-9); ANTI DS-DNA AB Negative (Negative); ANTINUCLEAR ANTIBODIES DIRECT Positive (Negative); CYTOPLASMIC NEUTROP AB ANCA-C <1:20 titer (Neg:<1:20); FREE KAPPA LIGHT CHAINS SERUM 160.5 mg/L (3.3-19.4); FREE LAMBDA LIGHT CHAINS SERUM 66.1 mg/L (5.7-26.3); KAPPA/LAMBDA RATIO SERUM 2.43 (0.26-1.65); PERINUCLEAR AB ANCA-P <1:20 titer (Neg:<1:20); RNP ANTIBODIES 1.1 AI (0.0-0.9); SJOGREN'S ANTI SS-A <0.2 AI (0.0-0.9); SJOGREN'S ANTI SS-B <0.2 AI (0.0-0.9); SMITH ANTIBODIES <0.2 AI (0.0-0.9)
== END ==
LOC: M LAB REF 17:14
PROVIDERS: ATTEND Internal Medicine Nephrology
DX: R31.9 Hematuria, unspecified (principal)

== ENCOUNTER → 2021-03-02 | Outpatient (REF) | payer OTHER ==
[2021-03-02 19:12] LABS: CREATININE 24 HOUR, URINE 318.8 MG/24HR (950-2500); CREATININE, URINE 98.1 MG/DL; TOTAL PROTEIN 24 HOUR URINE 536.5 MG/24HR (50-150); URINE TOTAL PROTEIN 165.1 MG/DL (0-12)
== END ==
LOC: M LAB REF 16:52
PROVIDERS: ATTEND Internal Medicine Nephrology
DX: R31.9 Hematuria, unspecified (principal)

== ENCOUNTER → 2021-03-17 | Outpatient (POV) | payer OTHER ==
[~2021-03-17] VITALS: Ht 177.8 cm; Wt 80.9 kg
[2021-03-17 10:54] VITALS: BP 147/85
--- NOTE | 2021-03-18 13:25 | IRCOV ---
[facility] IR Consult Office Visit IR Consult Office Visit DATE: Mar 17, 2021 REASON FOR CONSULTATION/CHIEF COMPLAINT: Kidney biopsy. HISTORY OF PRESENT ILLNESS: 75-year-old male with long history of urinary outflow issues, poor flow, hesitancy and urgency is referred by nephrology for kidney biopsy. Patient was on Xarelto for atrial fibrillation but this was stopped due to hematuria. Patient has not seen urology, he has no history of acute retention or self-catheterization. Patient does have hypertension controlled on medication, hematuria and proteinuria per nephrology notes and his kidney function continues to worsen. Patient denies chest pain, shortness of breath, orthopnea or paroxysmal nocturnal dyspnea. Patient denies abdominal or lower limb swelling. Patient denies any prior procedure or surgery on the kidneys. Patient denies any bleeding disorders. ALLERGIES: Please see below. HOME MEDICATIONS: Please see below. PAST MEDICAL HISTORY: Atrial fibrillation Chronic kidney disease AR CAD Aortic valve stenosis Osteoporosis JORGE Restless leg syndrome Type 2 diabetes Heart block BPH Hypothyroidism Gout PAST SURGICAL HISTORY: CABG with mitral annuloplasty FAMILY HISTORY: Noncontributory. SOCIAL HISTORY: Smoker. Trying to quit. Denies alcohol or drugs. REVIEW OF SYSTEMS: Otherwise negative. PHYSICAL EXAMINATION: VITAL SIGNS: Please see below. GENERAL APPEARANCE: Appears well. Comfortable at rest. HEENT: No scleral icterus. RESPIRATORY: Normal breathing at rest. CARDIOVASCULAR: Normal rate. Systolic murmur. ABDOMEN: Distended but soft nontender. EXTREMITIES: No edema. NEUROLOGICAL: Alert and oriented. PSYCHIATRIC: Appropriate to circumstance. LABORATORY DATA: 02/27/2021 hemoglobin 12.1 hematocrit 38 WBC 8.7 platelets 218 sodium 139 potassium 5.23 BUN 45.9 creatinine 3.7 GFR 16 Imaging: I personally reviewed the ultrasound of the kidneys performed 02/18/2021. Small kidneys. No hydronephrosis. ASSESSMENT/PLAN: 75-year-old male with chronic bladder outlet issues and hypertension, referred for kidney biopsy for worsening kidney function. We discussed the risks and benefits of the procedure and patient would like to proceed. We'll schedule the patient for kidney biopsy. Consider referral to urology regarding ongoing hematuria and urinary outflow issues. I spent 30 minutes reviewing patient's records, imaging and in consultation with the patient. Thank you for this referral. Cc Dr. Hobson. Allergies Coded Allergies: No Known Allergies (Verified , 08/01/18) Home Medications Scheduled Allopurinol (Allopurinol), 100 MG PO BID, (Reported) Calcium Carbonate (Caltrate 600), 1,500 MG PO BID, (Reported) Enalapril Maleate (Enalapril Maleate), 2.5 MG PO DAILY, (Reported) Finasteride (Finasteride), 5 MG PO DAILY Gabapentin (Gabapentin), 300 MG PO QID, (Reported) Levothyroxine Sodium (Levoxyl), 88 MCG PO DAILY, (Reported) Lovastatin (Lovastatin), 80 MG PO QHS, (Reported) Metoprolol Tartrate (Metoprolol Tartrate), 50 MG PO DAILY, (Reported) Rivaroxaban (Xarelto), 15 MG PO QPM, (Reported) Solifenacin Succinate (Vesicare), 10 MG PO DAILY, (Reported) Tamsulosin HCl (Flomax), 0.4 MG PO DAILY VS, I&O, 24H, Fishbone Vital Signs/I&O Vital Signs Date Time Temp Pulse Resp B/P (MAP) Pulse Ox O2 Delivery O2 Flow Rate FiO2 03/17/21 10:54 97.1 66 20 147/85 (105) 95 Room Air JARETH WILLIAMSON MD Mar 18, 2021 13:25
== END ==
LOC: M IRPOV 10:37
PROVIDERS: ATTEND Radiology Diagnostic Radiology
DX: N18.9 Chronic kidney disease, unspecified (principal); I12.9 Hypertensive chronic kidney disease with stage 1 through stage 4 chronic kidney disease, or unspecified chronic kidney disease; R31.9 Hematuria, unspecified; R80.9 Proteinuria, unspecified; I48.91 Unspecified atrial fibrillation; I25.2 Old myocardial infarction; I25.10 Atherosclerotic heart disease of native coronary artery without angina pectoris; I35.0 Nonrheumatic aortic (valve) stenosis; M81.0 Age-related osteoporosis without current pathological fracture; G47.33 Obstructive sleep apnea (adult) (pediatric); G25.81 Restless legs syndrome; I44.0 Atrioventricular block, first degree; E11.22 Type 2 diabetes mellitus with diabetic chronic kidney disease; E03.9 Hypothyroidism, unspecified; N40.0 Benign prostatic hyperplasia without lower urinary tract symptoms; M10.9 Gout, unspecified; F17.210 Nicotine dependence, cigarettes, uncomplicated; Z79.890 Hormone replacement therapy; Z79.899 Other long term (current) drug therapy

== ENCOUNTER → 2021-04-01 | Outpatient (CLI) | payer OTHER ==
[~2021-04-01] MED LIST changes: +LIDOCAINE 1% MDV 20ML VIAL As Ordered ONE; +MIDAZOLAM INJ 2MG/2ML VIAL (J2250 PER 1MG) As Ordered ONE; +PROMETHAZINE INJ 25 MG/ML VIAL (J2550) As Ordered ONE; +diphenhydrAMINE 50MG/ML VIAL (J1200) As Ordered ONE; +fentaNYL 100 MCG/2 ML INJECTION (J3010) As Ordered ONE
[2021-04-01 13:22] LABS: HEMATOCRIT 37.1 % (42.0-52.0); HEMOGLOBIN 11.9 g/dl (13.5-17.5); MEAN CORPUSCULAR HEMOGLOBIN 31.6 pg (27.0-33.0); MEAN CORPUSCULAR HGB CONC 32.1 g/dl (32.0-36.5); MEAN CORPUSCULAR VOLUME 98.7 fl (80.0-96.0); PLATELET COUNT, AUTOMATED 193 10^3/uL (150-450); RED BLOOD COUNT 3.76 10^6/uL (4.30-6.10); WHITE BLOOD COUNT 9.4 10^3/uL (4.0-10.0)
--- NOTE | 2021-04-01 13:32 | IRHP ---
[facility] IR Pre-Procedure H & P General Date of Service: April 01, 2021 Procedure: Same Day Surgery Interval History and Physical I have seen the patient and reviewed last H & P performed within 30 days. There is no significant interval change. History of Present Illness Chief Complaint The patient is a 75-year-old male admitted with a reason for visit of Renal Failure. PRE-PROCEDURE DIAGNOSIS: RF HEART: normal rate. LUNGS: normal breathing at rest. ASA Classification ASA Classification: III-Severe systemic dis. Mallampati Score: II NPO: Yes Problems with prior sedation: No Obstructive Sleep Apnea: No Plan moderate sedation Allergies Coded Allergies: No Known Allergies (Verified , 08/01/18) Home Medications Scheduled Finasteride (Finasteride), 5 MG PO DAILY Gabapentin (Gabapentin), 300 MG PO QID, (Reported) Levothyroxine Sodium (Levoxyl), 88 MCG PO DAILY, (Reported) Lovastatin (Lovastatin), 80 MG PO QHS, (Reported) Metoprolol Tartrate (Metoprolol Tartrate), 50 MG PO DAILY, (Reported) Tamsulosin HCl (Flomax), 0.4 MG PO DAILY VS, I&O, 24H, Fishbone Vital Signs/I&O Vital Signs Date Time Temp Pulse Resp B/P (MAP) Pulse Ox O2 Delivery O2 Flow Rate FiO2 04/01/21 13:00 97.8 90 20 97 Room Air Laboratory Data 24H LABS Laboratory Tests 2 04/01/21 13:04: Nucleated Red Blood Cells % (auto) 0.0 CBC/BMP Laboratory Tests 04/01/21 13:04 JARETH WILLIAMSON MD April 01, 2021 13:32
[2021-04-01 13:51] LABS: INR 1.03; PROTHROMBIN TIME 13.7 SECONDS (12.5-14.3)
[2021-04-01 16:15] VITALS: BP 155/75
--- NOTE | 2021-04-06 08:25 | IRPON ---
IR Postoperative Note Date Of Procedure: April 01, 2021 Time Of Procedure: 16:00 IR Postoperative Note IR CT Guided kidney biopsy. IR Moderate sedation. Clinical Information:Renal failure. Physician: Dr. Brito. Procedure: The patient was advised of the benefits, risks, and alternatives of the procedure and informed consent was obtained. A time out was performed with verification of the patient's name, MRN, site of procedure, and type of procedure to be performed. The patient was positioned in the prone position on the CT table. The site was prepped and draped in the usual sterile fashion. Moderate sedation was performed by the physician including the presence of an independent trained RN who assisted in monitoring the patient's level of consciousness and physiological status. Following the administration of fentanyl and Versed, the physician spent 45 minutes of continuous [id number] time with the patient. Preliminary CT demonstrates unremarkable right kidney. Atrophic left kidney. The skin and expected tract were anesthetized with lidocaine.A 17-gauge coaxial needle was advanced under intermittent CT guidance to the right kidney lower pole cortex. An 18-gauge Biopince device was advanced through the coaxial needle and used to obtain 3 cores through the lower pole of the kidney, with CT confirmation. The needle was removed, pressure held and hemostasis achieved. A follow-up CT through the area demonstrates no significant hematoma. A sterile dressing was applied to the site. The patient tolerated the procedure well and was returned to the PRU in stable condition. EBL:Less than 5 mL. Complications:None. Conclusion:1. CT demonstrates unremarkable right kidney. 2. Successful CT-guided renal biopsy. Patient to follow-up with referring provider for biopsy results. Thank you for this referral. Cc JARETH Diallo MD April 06, 2021 08:25
== END ==
LOC: M IRPRO 03-25 13:13
PROVIDERS: ATTEND Radiology Diagnostic Radiology
DX: N19 Unspecified kidney failure (principal); Z79.890 Hormone replacement therapy; Z79.899 Other long term (current) drug therapy
CPT/HCPCS: 50200; 77012; 85027; 85610; 88300; 99152; 99153; J2250; J3010

== ENCOUNTER 2021-04-27 17:04 | Inpatient (IN) | payer OTHER ==
[~2021-04-27] VITALS: Ht 175.3 cm; Wt 72.4 kg
[~2021-04-27 17:04] MED LIST changes: -LIDOCAINE 1% MDV 20ML VIAL As Ordered ONE; -MIDAZOLAM INJ 2MG/2ML VIAL (J2250 PER 1MG) As Ordered ONE; -PROMETHAZINE INJ 25 MG/ML VIAL (J2550) As Ordered ONE; -diphenhydrAMINE 50MG/ML VIAL (J1200) As Ordered ONE; -fentaNYL 100 MCG/2 ML INJECTION (J3010) As Ordered ONE
[2021-04-27] MEDS ORDERED: NS 500 ML IV ONE ×3 (17:50→22:15)
[2021-04-27 18:22] LABS: BASO % 0.2 % (0.0-1.0); EOS % 0.1 % (0.0-3.0); HEMATOCRIT 38.5 % (42.0-52.0); HEMOGLOBIN 12.7 g/dl (13.5-17.5); LYMPH # 0.4 10^3/uL (1.5-5.0); LYMPH % 2.1 % (24.0-44.0); MEAN CORPUSCULAR HEMOGLOBIN 31.2 pg (27.0-33.0); MEAN CORPUSCULAR VOLUME 94.6 fl (80.0-96.0); MONO # 0.7 10^3/uL (0.0-0.8); MONO % 4.1 % (2.0-8.0); NEUTROPHILS # 15.1 10^3/uL (1.5-8.5); NEUTROPHILS % 91.9 % (36.0-66.0); RED BLOOD COUNT 4.07 10^6/uL (4.30-6.10); WHITE BLOOD COUNT 16.4 10^3/uL (4.0-10.0)
--- NOTE | 2021-04-27 18:29 | REPVR ---
PROCEDURE INFORMATION: Exam: CT Chest Without Contrast; Diagnostic Exam date and time: 04/27/2021 5:50 PM Age: 75 years old Clinical indication: Injury or trauma; Fall; Blunt trauma (contusions or hematomas) TECHNIQUE: Imaging protocol: Diagnostic computed tomography of the chest without contrast. Radiation optimization: All CT scans at this facility use at least one of these dose optimization techniques: automated exposure control; mA and/or kV adjustment per patient size (includes targeted exams where dose is matched to clinical indication); or iterative reconstruction. COMPARISON: RI Chest, 1 view 06/19/2018 6:09 PM FINDINGS: Lungs: Biapical pleuroparenchymal scarring. Moderate paraseptal and centrilobular emphysematous changes most pronounced in the upper lung zones in posterior in both lung bases. Thickened airways demonstrated at both lung bases may indicate reactive airway disease versus bronchitis. Pleural spaces: Unremarkable. No pneumothorax. No pleural effusion. Heart: Status post CABG. Cardiomegaly. Pulmonary arteries: There is enlargement of the central pulmonary arteries, findings which can be associated with pulmonary arterial hypertension which should be correlated clinically. Aorta: There is fusiform dilatation of the ascending thoracic aorta which measures 3.8 cm. maximally. There is no dissection or saccular component. Lymph nodes: Unremarkable. No enlarged lymph nodes. Bones/joints: Status post sternotomy. Soft tissues: Unremarkable. IMPRESSION: 1. Moderate paraseptal and centrilobular emphysematous changes most pronounced in the upper lung zones in posterior in both lung bases. 2. Thickened airways demonstrated at both lung bases may indicate reactive airway disease versus bronchitis. 3. There is fusiform dilatation of the ascending thoracic aorta which measures 3.8 cm. maximally. There is no dissection or saccular component. 4. Status post CABG. 5. Cardiomegaly. 6. There is enlargement of the central pulmonary arteries, findings which can be associated with pulmonary arterial hypertension which should be correlated clinically. Electronically signed by: Nathan Ellis On 04/27/2021 18:29:13 PM
--- NOTE | 2021-04-27 18:34 | REPVR ---
PROCEDURE INFORMATION: Exam: CT Abdomen And Pelvis Without Contrast Exam date and time: 04/27/2021 5:50 PM Age: 75 years old Clinical indication: Injury or trauma; Fall; Blunt; Generalized TECHNIQUE: Imaging protocol: Computed tomography of the abdomen and pelvis without contrast. Radiation optimization: All CT scans at this facility use at least one of these dose optimization techniques: automated exposure control; mA and/or kV adjustment per patient size (includes targeted exams where dose is matched to clinical indication); or iterative reconstruction. COMPARISON: CT ABD PELVIS W/O CONTRAST 06/19/2018 6:47 PM FINDINGS: Lungs: Nodule opacities at the right lung base are partially obscured by atelectasis but appear unchanged in comparison the prior study of 06/19/2018. Liver: Examination of the liver demonstrates a lobular surface contour, and enlargement of the left and caudate lobes, findings consistent with cirrhosis. Gallbladder and bile ducts: Normal. No calcified stones. No ductal dilation. Pancreas: Normal. No ductal dilation. Spleen: Normal. No splenomegaly. Adrenal glands: Normal. No mass. Kidneys and ureters: Normal. No hydronephrosis. Stomach and bowel: Mild diverticulosis coli without diverticulitis. Appendix: No evidence of appendicitis. Intraperitoneal space: Unremarkable. No free air. No significant fluid collection. Vasculature: The aortoiliac vessels demonstrate moderate atherosclerotic calcification. Lymph nodes: Unremarkable. No enlarged lymph nodes. Urinary bladder: Unremarkable as visualized. Reproductive: Unremarkable as visualized. Bones/joints: Unremarkable. No acute fracture. Soft tissues: Unremarkable. Other findings: Osteoporosis. IMPRESSION: 1. Examination of the liver demonstrates a lobular surface contour, and enlargement of the left and caudate lobes, findings consistent with cirrhosis. 2. Mild diverticulosis coli without diverticulitis. Electronically signed by: Nathan Ellis On 04/27/2021 18:34:09 PM
[2021-04-27 18:36] LABS: CK-MB VALUE MASS 6.5 NG/ML (<3.6); MB/CK RELATIVE INDEX 1.1 (< OR =4); TROPONIN I 1.04 NG/ML (< 0.10)
[2021-04-27 18:57] LABS: RSV AMPLIFICATION NEGATIVE (NEGATIVE)
[2021-04-27 19:03] LABS: PLATELET COUNT, AUTOMATED 64 10^3/uL (150-450)
[2021-04-27 21:25] LABS: CK-MB VALUE MASS 7.7 NG/ML (<3.6); MB/CK RELATIVE INDEX 0.91 (< OR =4); TROPONIN I 1.15 NG/ML (< 0.10)
[2021-04-27] MEDS ORDERED: MOM 30ML SUSPENSION UDC PO PRN (22:55)
[2021-04-27] MEDS ORDERED: MAALOX 30 ML SUSP *UDC PO PRN (22:55)
--- NOTE | 2021-04-27 23:25 | HPEPDOC ---
[facility] Medical History & Physical Date of Admission Apr 27, 2021 Date of Service: Apr 27, 2021 History and Physical CHIEF COMPLAINT: Weakness and collapse HISTORY OF PRESENT ILLNESS: 75-year-old male with an extensive cardiac medical history including atrial fibrillation, CAD status post CABG, and aortic stenosis who presents after weakness and collapse at home. Patient tells me that was walking around his house at 9:30 in the morning when he started feeling progressively weaker and then fell to the ground collapsing onto his right side impacting his right chest and right elbow. He tells me he did not his head and did not lose consciousness at any point. He felt too weak to get back up and drank himself on the floor where he rested for proximally 7 hours until his came home from work around 4 PM. EMS was called and patient was brought to the hospital. Patient tells me at no point did he experience any chest pain. However he does note that over the past 2 days he has become increasingly short of breath but only on exertion. Currently he denies shortness of breath. He denies some pain on the sides of i mpacted right elbow and right chest but no pain elsewhere. He attributes his weakness did not having a great appetite and not taking much fluids he tells me he drinks some water and mostly pop and occasionally some coffee. On review of systems he does endorse intermittent hematuria. He denies pain on urination. He denies any cough or sputum production. He denies abdominal pain. He denies lower extremity pain. He denies any changes to his vision. He denies feeling any fevers or chills. Denies any nausea or vomiting. In the emergency department patient was found to be severely dehydrated with atrial fibrillation with rapid ventricular response heart rate in the 140s he was given IV fluid boluses with improvement of his heart rate. Patient was found to have an elevated troponin of 1.04 on presentation which went up a few hours later to 1.15. CT abdomen/pelvis and CT chest were obtained in the ED reports are pending. PAST MEDICAL/SURGICAL HISTORY: Coronary artery disease status post CABG Atrial fibrillation previously in Xarelto stopped due to bleeding Mitral valve annuloplasty Aortic stenosis Hypertension Gout Hypothyroidism ? DM, mentioned in note from last admission although not on diabetes medications. SOCIAL HISTORY: Denies alcohol use tells me he quit many years ago Denies tobacco use tells me he quit many years ago Denies illicit drug use FAMILY HISTORY: Reviewed and none contributory to this admission ALLERGIES: Please see below. REVIEW OF SYSTEMS: 10 point review of systems complete all negative otherwise stated in HPI HOME MEDICATIONS: Please see below. PHYSICAL EXAMINATION: Constitutional: Awake and alert, in mild apparent distress tells me he's feeling anxious but feeling better after fluids ENT: Sclera are clear. Mucosa is dry Respiratory: Lungs diminished breath sounds bilaterally. No respiratory distress. RR ~16 at bedside. Saturating well on room air Cardiovascular: Irregular rate and rhythm. Audible systolic murmur most prominent around the second right intercostal space Gastrointestinal: Abdomen is soft, non distended, non tender, BS present. Musculoskeletal: No lower extremity edema. Neurologic: No focal neurological deficit. Mental Status: A&O x3 Skin: Right elbow is bandaged from the ED area fall with laceration. Small right sided chest ecchymoses also site of fall LABORATORY DATA: See below. IMAGING: See chart MICROBIOLOGY: Please see below. ASSESSMENT/PLAN 75-year-old male with an extensive cardiac medical history including atrial fibrillation, CAD status post CABG, and aortic stenosis who presents after weak ness and collapse at home found to be severely dehydrated with an CHARANJIT on CKD, elevated troponins, and a flutter with RVR, believed to possibly be multifactorial admitted for further medical workup and management. # Weakness and collapse: Endorses progressive dyspnea on exertion as well as weakness leading to collapse today. no LOC. No head trauma. This could be due to one or multiple coexisting problems; severe dehydration vs A flutter with RVR vs NSTEMI, vs relating to aortic stenosis. # Severe dehydration: hasn't been drinking much fluids other than pop and coffee. IVFs, monitor volume status and adjust fluids as necessary. S/p NS boluses in the ED with some improvement. # CHARANJIT on CKD: Cr increased to 5.0 on admission from baseline ~2-2.5. Likely prerenal secondary to dehydration. Fu FeNa. IVFs NS. Trend BMP. Avoid nephrotoxins, hold gabapentin. If renal function does not improve by tomorrow with fluids, consult nephrology. # Elevated troponin: could be demand ischemia vs NSTEMI. Initially I was inclined to place him on a heparin drip for presumed NSTEMI given his extensive cardiac history. However given the small rise in troponin and his thrombocytopenia platelets 61, I will hold off for now and continue to trend his troponin. I hope Dr Olivares can help guide us with regards to dealing with the elevated troponin. For now only prophylactic heparin q8h while monitoring for signs of bleeding given history of hematuria and low platelets. I don't see antiplatelet therapy on his medicine reconciliation despite his history of CAD with CABG, pharmacy will attempt to call his outpatient pharmacy int he morning for more comprehensive med rec. I will give him one dose of ASA 325 tonight. # A flutter with RVR: Patient initially presented with A. fib with RVR HR 140s in the ED possibly triggered by dehydration. I reviewed his EKGs with Dr. Olivares first one appears to be a flutter with 2:1 conduction rate 140, second one shows A flutter rate 107 s/p fluids bolus. Will switch his rate control from 100mg metoprolol succinate once daily to tartrate 25mg every 6 hours and adjust based on heart rate. Anticoagulated with heparin drip for now due to elevated trops above. He was previously in Xarelto but this was stopped due to persistent hematuria. # History of aortic stenosis: concern that fall could be related to . Patient did endorse worsened dyspnea on exertion for the past [address] Olivares, will order repeat echo and appreciate his recommendations with regards to further workup if necessary based on the echo results. # Rhabdomyolysis: due to fall and time on ground ~7 hrs. Trend CPK, initially ~600->850. IVFs. Titrate based on volume status and CPK response. # Leukocytosis: 16.4 in ED. I initially expected this to be both reactive and from hemoconcentration due to dehydration at this time. I didn't suspect an infection initially and was going to hold off on ABx as he was afebrile until ~4am when he spiked a fever of 101.2. Given this new findings and in the settin gof leukocytosis, we will persume infection of unknown source and start on broad spectrum antibiotics with Vancomycin and Zosyn. IVFs. Fu Procalcitonin which is pending. Fu UA. I also ordered blood cultures. Consider ID consult if no obvious source is found. # Hyperkalemia: k initially 5.4. Kayexalate. Repeat BMP in the morning. # POC showing hypocalcemia: shows level of 4.1. Fu morning ionized calcium level # Thrombocytopenia: Platelets 64 and patient this is new from last month on April 01 platelets were 193. Etiology not yet known. # Hx proteinuria and hematuria: Chart review reveals that the patient recently had a kidney biopsy on 03/18/[address] Brito. Reason for biopsy was proteinuria and hematuria as well as long-term history of urinary outflow issues, poor flow, hesitancy and urgency. Medicine reconciliation reveals patient has been prescribed 60 mg of prednisone daily for >30 days by supervisor soakers Dr. Echevarria. I will continue his steroids for now and ask the morning team to contact nephrology or obtain records to find out why he is on steroids if we have a diagnosis after the renal biopsy. #? DM, mentioned in note from last admission although not on diabetes medications: ISS. Frequent Accu-Cheks. Hypoglycemic precautions. Fu A1c. # Urinary outflow problem: Denies having BPH. continue finasteride and tamsulosin. # HLD: continue home lovastatin # Hypothyroidism: resume Synthroid. # Hypertension: Continue home meds. Monitor and titrate # history of none compliance: complicates care. # Hx gout # DVT prophylaxis: prophylactic heparin A Yousef Hospitalist Critical care time spent 60 minutes Vital Signs Vital Signs Date Time Temp Pulse Resp B/P (MAP) Pulse Ox O2 Delivery O2 Flow Rate FiO2 04/27/21 23:04 110 96 04/27/21 23:00 135/71 (92) 04/27/21 19:19 Room Air 04/27/21 18:34 25 04/27/21 17:25 98.1 Laboratory Data Labs 24H Laboratory Tests 2 04/27/21 17:48: Immature Granulocyte % (Auto) 1.6, Neutrophils (%) (Auto) 91.9H, Lymphocytes (%) (Auto) 2.1L, Monocytes (%) (Auto) 4.1, Eosinophils (%) (Auto) 0.1, Basophils (%) (Auto) 0.2, Neutrophils # (Auto) 15.1H, Lymphocytes # (Auto) 0.4L, Monocytes # (Auto) 0.7, Eosinophils # (Auto) 0.0, Basophils # (Auto) 0.0, Nucleated Red Blood Cells % (auto) 0.0, Immature Platelet Fraction 5.4, POC Glucose (Misc Panel) 101, POC Sodium (Misc Panel) 135L, POC Potassium (Misc Panel) 5.4H, POC Chloride (Misc Panel) 106, POC Total CO2 (Misc Panel) 18.0L, POC Blood Urea Nitrogen (Misc Panel 72H, POC Ionized Calcium (Misc Panel) 4.1L, POC Creatinine (Misc Panel) 5.0H, POC Hematocrit (Misc Panel) 39.0, Total Creatine Kinase 592H, Creatine Kinase MB 6.5H, Creatine Kinase MB Relative Index 1.10, Troponin I 1.04H, Coronavirus (COVID-19)(PCR) NEGATIVE, Influenza Type A (RT-PCR) NEGATIVE, Influenza Type B (RT-PCR) NEGATIVE, Respiratory Syncytial Virus (PCR) NEGATIVE 04/27/21 20:48: Total Creatine Kinase 850H, Creatine Kinase MB 7.7H, Creatine Kinase MB Relative Index 0.91, Troponin I 1.15H CBC/BMP Laboratory Tests 04/27/21 17:48 Home Medications Scheduled Amlodipine Besylate (Amlodipine Besylate) 5 Mg Tablet, 5 MG PO DAILY Finasteride (Finasteride) 5 Mg Tablet, 5 MG PO DAILY Gabapentin (Gabapentin) 300 Mg Cap, 300 MG PO QID Levothyroxine Sodium (Levoxyl) 88 Mcg Tab, 88 MCG PO DAILY Lovastatin (Lovastatin) 40 Mg Tab, 80 MG PO QHS Metoprolol Succinate (Toprol Xl) 100 Mg Tab.er.24h, 100 MG PO DAILY Prednisone (Prednisone) 20 Mg Tablet, 60 MG PO DAILY Sodium Zirconium Cyclosilicate (Lokelma) 10 Gm Powd.pack, 10 GM PO 3XW TUESDAY, TUESDAY AND TUESDAY: HAS NOT STARTED YET Tamsulosin HCl (Flomax) 0.4 Mg Capsule, 0.4 MG PO DAILY TAKES AROUND LUNCHTIME Allergies Coded Allergies: No Known Allergies (Verified , 08/01/18) A-FIB/CHADSVASC A-FIB History Current/History of A-Fib/PAF?: Yes Current PO Anticoag Therapy: No REINALDO BLANC MD Apr 27, 2021 23:25
[2021-04-27] MEDS ORDERED: AMLO1TAB24 PO (23:52)
[2021-04-27] MEDS ORDERED: TOPR100T PO (23:52)
[2021-04-27] MEDS ORDERED: LOKE10PA PO (23:52)
[2021-04-27] MEDS ORDERED: PRED20TA PO (23:52)
[2021-04-27] MEDS ORDERED: FLOM0.4C39 PO (23:52)
[2021-04-27] MEDS ORDERED: FINA5TAB2 PO (23:52)
[2021-04-28] MEDS ORDERED: METOPROLOL TART 25 MG TABLET PO ONE
[2021-04-28] MEDS ORDERED: SOD POLYSTYRENE SULFONATE SUSP 15 GM/60 ML UD PO ONE
[2021-04-28] MEDS: NS 1,000 ML IV SCH ×2 (00:33→13:39)
[2021-04-28 04:13] VITALS: BP 129/65
[2021-04-28] MEDS ORDERED: HEPARIN SOD (PORCINE) 5000UNITS/ML 1ML VIAL/SYRINGE IV PRN (04:15)
[2021-04-28] MEDS ORDERED: HEPARIN DRIP 25,000 UNITS in IV 1 EA IV SCH (04:15)
[2021-04-28] MEDS: ACETAMINOPHEN TAB 650MG DOSE (2X325MG) PO PRN ×2 (04:33→05:40)
[2021-04-28] MEDS ORDERED: PIPERACILLIN/TAZOBACTAM SOD 4.5 GM in D5W MINI-BAG PLUS 50 ML IV SCH (04:45)
[2021-04-28] MEDS ORDERED: DEXTROSE 50% 50 ML SYRINGE IV PRN (04:55)
[2021-04-28] MEDS ORDERED: GLUCAGON INJ 1MG VIAL SC PRN (04:55)
[2021-04-28] MEDS ORDERED: GLUCOSE 4GM CHEW TABLET PO PRN (04:55)
[2021-04-28] MEDS: HEPARIN SOD (PORCINE) 5000UNITS/ML 1ML VIAL/SYRINGE SQ SCH ×2 (04:59→14:00)
[2021-04-28] MEDS ORDERED: ASPIRIN 325 MG TAB PO ONE (05:00)
[2021-04-28] MEDS: LEVOTHYROXINE 88MCG TABLET (0.088 MG) PO SCH (05:01)
[2021-04-28] MEDS: METOPROLOL TART 25 MG TABLET PO SCH ×4 (05:01→23:15)
[2021-04-28] MEDS ORDERED: VANCOMYCIN INTERMITTENT/PULSE DOSING BY CLINICAL PHARMACIST PER DOSING PROTOCOL XX SCH (05:10)
--- NOTE | 2021-04-28 05:37 | ECGEPIP ---
[facility] - ED Test Date: 2021-04-27 Pat Name: IVAN MAGALLANES Department: Room: - Gender: Male Quality Assurance Qa Lab Analyst: SHAJI : 1945 Requested By: Sreedhar Fay Order Number: [id number] Reading MD: Agapito Beauchamp Measurements Intervals [place] Rate: 143 P: [place]: QRS: -74 QRSD: 138 T: 49 QT: 334 QTc: 515 Interpretive Statements Wide QRS tachycardia Left axis deviation Right bundle branch block Inferior infarct , age undetermined History of atrial fibrillation on tracing done 06-19-18, but RIGHT BUNDLE BRANCH BLOCK new from that tracing Electronically Signed on 04-28-2021 5:36:54 EDT by Agapito Beauchamp
[2021-04-28] MEDS: PIPERACILLIN/TAZOBACTAM SOD 2.25 GM in D5W MINI-BAG PLUS 50 ML IV SCH ×2 (05:40→12:54)
--- NOTE | 2021-04-28 05:40 | ECGEPIP ---
[facility] - ED Test Date: 2021-04-27 Pat Name: IVAN MAGALLANES Department: Room: - Gender: Male Still Operator Helper: Tami THORNTON : 1945 Requested By: AGAPITO Pena Order Number: [id number] Reading MD: Agapito Beauchamp Measurements Intervals [place] Rate: 107 P: [place]: QRS: -67 QRSD: 126 T: 2 QT: 352 QTc: 469 Interpretive Statements Atrial fibrillation with rapid ventricular response Left axis deviation Right bundle branch block Rate decreased from tracing done at 17:15 on the same date Electronically Signed on 04-28-2021 5:39:49 EDT by Agapito Beauchamp
[2021-04-28 05:54] LABS: HEMATOCRIT 34.1 % (42.0-52.0); HEMOGLOBIN 11.1 g/dl (13.5-17.5); MEAN CORPUSCULAR HGB CONC 32.6 g/dl (32.0-36.5); MEAN CORPUSCULAR VOLUME 95.3 fl (80.0-96.0); RED BLOOD COUNT 3.58 10^6/uL (4.30-6.10)
[2021-04-28 05:58] LABS: PLATELET COUNT, AUTOMATED 56 10^3/uL (150-450)
[2021-04-28] MEDS ORDERED: VANCOMYCIN HCL 1,000 MG, VIAL MATE ADAPTER 1 EACH in NS 250 ML IV ONE (06:00)
[2021-04-28 06:11] LABS: HEMOGLOBIN A1c 6.3 %
[2021-04-28 06:25] LABS: ALBUMIN 2.2 GM/DL (3.2-5.2); BILIRUBIN,TOTAL 0.7 MG/DL (0.2-1.0); CALCIUM LEVEL 6.7 MG/DL (8.8-10.2); CREATININE FOR GFR 4.87 MG/DL (0.70-1.30); GLOMERULAR FILTRATION RATE 12.4 (>42); MAGNESIUM LEVEL 1.7 MG/DL (1.8-2.4); POTASSIUM SERUM 4.4 MEQ/L (3.5-5.1); TOTAL PROTEIN 5.2 GM/DL (6.4-8.2)
[2021-04-28 06:31] LABS: CREATININE,RANDOM URINE 47.7 MG/DL
[2021-04-28] MEDS ORDERED: VANCOMYCIN HCL 500 MG in D5W MINI-BAG PLUS 100 ML IV ONE (07:00)
[2021-04-28 07:02] VITALS: BP 92/53
[2021-04-28] MEDS: HumaLOG INSULIN (NovoLOG) PER UNIT SC SCH ×4 (07:30→19:36)
[2021-04-28] MEDS ORDERED: METOPROLOL TART 25 MG TABLET PO SCH (09:00)
[2021-04-28] MEDS ORDERED: DOCUSATE SODIUM 100MG CAPSULE PO SCH (09:00)
[2021-04-28] MEDS ORDERED: amLODIPine 5 MG TAB PO SCH (09:00)
[2021-04-28] MEDS ORDERED: GABAPENTIN 300 MG CAP PO SCH (09:00)
[2021-04-28] MEDS ORDERED: predniSONE 20 MG TAB PO SCH (09:00)
[2021-04-28] MEDS: FINASTERIDE 5 MG TAB PO SCH (09:52)
[2021-04-28] MEDS: TAMSULOSIN 0.4 MG CAP PO SCH (09:52)
[2021-04-28 11:50] VITALS: BP 95/52
--- NOTE | 2021-04-28 12:31 | IPNPDOC ---
Text Note Date of Service The patient was seen on 04/28/21. NOTE Subjective: Patient seen and examined at bedside. No acute overnight events reported. Patient voices no new medical complaints this morning. He still notes diarrhea. Objective: General: NAD, lying comfortably in bed HEENT: NC/AT, EOMI Lungs: CTA B/L Heart: +S1S2, systolic murmur, irregular Abd: soft, +BS, NT Ext: trace edema, right elbow bandage in place A/P: 75-year-old male with an extensive cardiac history including a-fib, CAD/CABG, presents for fall secondary to weakness, unable to get up. Found to be severely dehydrated with an CHARANJIT on CKD, elevated troponins, and a flutter with RVR, believed to possibly be multifactorial admitted for further medical workup and management. # Weakness and collapse - Endorses progressive dyspnea on exertion as well as weakness leading to collapse - no LOC. No head trauma - likely multi-factorial etiology - severe dehydration, A fib RVR/new RBBB, NSTEMI, aortic stenosis. #CDiff - Leukocytosis - fevers, diarrhea - stool + CDiff # Severe dehydration - poor PO intake - continue IV fluids - monitor volume status and adjust fluids as necessary - S/p NS boluses in the ED with some improvement. # CHARANJIT on CKD - Cr increased to 5.0 on admission from baseline ~2-2.5 - Likely prerenal secondary to dehydration - consult nephrology. # Elevated troponin - demand ischemia vs NSTEMI - case was previously discussed with cardiology - consultation pending # A fib with RVR - initially presented with A. fib with RVR HR 140s in the ED possibly triggered by dehydration - new RBBB - previously reviewed with cardiology - appeared to be a flutter with 2:1 conduction rate 140, second one shows A flutter rate 107 s/p fluids bolus - change home 100mg metoprolol succinate once daily to tartrate 25mg every 6 hours and adjust based on heart rate - previously on Xarelto but this was stopped due to persistent hematuria. # History of aortic stenosis - concern that fall could be related to - Patient did endorse worsened dyspnea on exertion for the past 2 days - previously discussed with cardiology - repeat echo pending # Rhabdomyolysis - due to fall and time on ground ~7 hrs. Trend CPK, initially ~600->850. IVFs. Titrate based on volume status and CPK response. # Hyperkalemia: k initially 5.4. Kayexalate. Repeat BMP in the morning. # POC showing hypocalcemia: shows level of 4.1. Fu morning ionized calcium level # Thrombocytopenia: Platelets 64 and patient this is new from last month on April 01 platelets were 193. Etiology not yet known. # Hx proteinuria and hematuria: Chart review reveals that the patient recently had a kidney biopsy on 03/18/[address] Brito. Reason for biopsy was proteinuria and hematuria as well as long-term history of urinary outflow issues, poor flow, hesitancy and urgency. Medicine reconciliation reveals patient has been prescribed 60 mg of prednisone daily for >30 days by nurse practitioner manager Dr. Echevarria. I will continue his steroids for now and ask the morning team to contact nephrology or obtain records to find out why he is on steroids if we have a diagnosis after the renal biopsy. #? DM, mentioned in note from last admission although not on diabetes medicatio ns: ISS. Frequent Accu-Cheks. Hypoglycemic precautions. Fu A1c. # Urinary outflow problem: Denies having BPH. continue finasteride and tamsulosin. # HLD: continue home lovastatin # Hypothyroidism: resume Synthroid. # Hypertension: Continue home meds. Monitor and titrate # history of none compliance: complicates care. # Hx gout # DVT prophylaxis: mechanical given thrombocytopenia VS,Fishbone, I+O VS, Fishbone, I+O Laboratory Tests 04/27/21 17:48 04/28/21 05:35 Vital Signs Date Time Temp Pulse Resp B/P (MAP) Pulse Ox O2 Delivery O2 Flow Rate FiO2 04/28/21 11:50 97.0 73 18 95/52 (66) 94 Room Air I&O- Last 24 Hours up to 6 AM 04/28/21 05:59 Intake Total 2500 ml Balance 2500 ml ARTHUR SMITH MD Apr 28, 2021 12:31
[2021-04-28] MEDS: VANCOMYCIN ORAL SOL 250MG/5ML ORAL SYRINGE PO SCH ×3 (13:39→23:16)
[2021-04-28 15:21] VITALS: BP 97/53
[2021-04-28 17:13] LABS: CK-MB VALUE MASS 10.6 NG/ML (<3.6); MB/CK RELATIVE INDEX 1.26 (< OR =4); TROPONIN I 0.5 NG/ML (< 0.10)
[2021-04-28] MEDS ORDERED: NS 1,000 ML IV SCH (18:15)
[2021-04-28] MEDS: SIMVASTATIN 40 MG TAB PO SCH (19:38)
[2021-04-28 19:43] VITALS: BP 148/68
[2021-04-28] MEDS: SODIUM BICARBONATE 75 MEQ in NS 0.45% 1,000 ML IV SCH (22:04)
[2021-04-28 23:09] VITALS: BP 127/60
[2021-04-29 04:59] VITALS: BP 105/67
[2021-04-29] MEDS: VANCOMYCIN ORAL SOL 250MG/5ML ORAL SYRINGE PO SCH ×4 (05:04→23:17)
[2021-04-29] MEDS: METOPROLOL TART 25 MG TABLET PO SCH ×4 (05:04→23:16)
[2021-04-29] MEDS: LEVOTHYROXINE 88MCG TABLET (0.088 MG) PO SCH (05:04)
[2021-04-29] MEDS: SODIUM BICARBONATE 75 MEQ in NS 0.45% 1,000 ML IV SCH (05:58)
[2021-04-29 06:00] LABS: BASO % 0.1 % (0.0-1.0); EOS % 0.1 % (0.0-3.0); HEMOGLOBIN 9.2 g/dl (13.5-17.5); LYMPH # 0.2 10^3/uL (1.5-5.0); LYMPH % 1.5 % (24.0-44.0); MEAN CORPUSCULAR HEMOGLOBIN 31.6 pg (27.0-33.0); MEAN CORPUSCULAR HGB CONC 32.9 g/dl (32.0-36.5); MEAN CORPUSCULAR VOLUME 96.2 fl (80.0-96.0); MONO # 0.3 10^3/uL (0.0-0.8); MONO % 2.5 % (2.0-8.0); NEUTROPHILS # 11.2 10^3/uL (1.5-8.5); RED BLOOD COUNT 2.91 10^6/uL (4.30-6.10); WHITE BLOOD COUNT 11.7 10^3/uL (4.0-10.0)
[2021-04-29 06:03] LABS: PLATELET COUNT, AUTOMATED 49 10^3/uL (150-450)
[2021-04-29 06:20] LABS: BLOOD UREA NITROGEN 90 MG/DL (7-18); CALCIUM LEVEL 6.6 MG/DL (8.8-10.2); CARBON DIOXIDE LEVEL 15 MEQ/L (21-32); CHLORIDE LEVEL 109 MEQ/L (98-107); CREATININE FOR GFR 5.41 MG/DL (0.70-1.30); GLUCOSE, FASTING 136 MG/DL (70-100); POTASSIUM SERUM 4.1 MEQ/L (3.5-5.1); SODIUM LEVEL 140 MEQ/L (136-145)
[2021-04-29 07:38] VITALS: BP 91/51
[2021-04-29] MEDS: FINASTERIDE 5 MG TAB PO SCH (08:35)
[2021-04-29] MEDS: HumaLOG INSULIN (NovoLOG) PER UNIT SC SCH ×4 (08:35→20:13)
[2021-04-29] MEDS: TAMSULOSIN 0.4 MG CAP PO SCH (08:36)
[2021-04-29] MEDS ORDERED: predniSONE 20 MG TAB PO SCH (09:00)
--- NOTE | 2021-04-29 09:15 | ECHO ---
ECHOCARDIOGRAM DATE OF PROCEDURE: 04/28/2021 Age: 75 Gender: Male Height: 175 cm Weight: 80 kg REFERRING PHYSICIAN: Jones Sears MD INDICATION: Aortic stenosis. MEASUREMENTS: IVS 1.2 cm LV 4.4 cm LVPW 1.3 cm LA 3.5 cm Aorta 3.5 cm IVC 2.1 cm FINDINGS: This study is of rather difficult technical quality with somewhat limited visualization. There is underlying atrial flutter with variable AV conduction and wide QRS complex. Left ventricle is normal size. I do not appreciate any segmental wall motion abnormality, but the septum appears to be flattened consistent with pulmonary hypertension. Overall EF estimated in the neighborhood of 50% to 55%. Right ventricle is dilated and hypokinetic. There is severe biatrial enlargement. Aortic valve is heavily calcified. I cannot comment on details of its structure, but based on 2D imaging, there is at least mild if not more severe aortic stenosis. There is probably mitral annuloplasty with thickening of mitral leaflets and echo density adjacent to the mitral annulus most likely representing annuloplasty ring. Mobility of leaflets is at least mildly reduced. Tricuspid valve appears normal. Pulmonic valve also appears normal. Pulmonary artery appears to be dilated. No pericardial effusion is noted. Inferior vena cava is dilated, but has collapse with inspiration indicative of mildly elevated central venous pressure. The aortic root is normal. The aortic arch and abdominal aorta were not seen. Doppler interrogation of the aortic valve reveals mild insufficiency and probably moderate stenosis. Mean gradient was only 20 mmHg, but calculated aortic valve area was 0.9, which is almost certainly over estimated severity of the stenosis. There is no significant mitral insufficiency, but mild mitral stenosis with mean gradient 5 mmHg and peak gradient 14 mmHg. The measurement was obtained with ventricular rate around 70 beats per minute. Moderate tricuspid insufficiency is seen. Calculated pulmonary artery pressure is at least around 60 to 65 mmHg corresponding to moderately severe pulmonary hypertension. Trace pulmonic insufficiency is seen. Evaluation of diastolic function is inconclusive due to underlying atrial flutter. CONCLUSIONS: 1. Study is of fair technical quality, patient is in atrial flutter with controlled rate. 2. Normal LV size with mild LVH, low normal LV systolic function with estimated EF around 50% to 55%. 3. Dilated hypokinetic right ventricle. 4. Prominent aortic sclerosis resulting in approximately moderate aortic stenosis (mean gradient 20 mmHg) and mild aortic insufficiency. 5. Likely status post mitral valve annuloplasty resulting in mild mitral stenosis (mean gradient 5 mmHg). 6. Very high central venous pressure and moderately severe pulmonary hypertension. 7. At least moderate tricuspid insufficiency. 8. Dilated pulmonary artery.
--- NOTE | 2021-04-29 10:39 | CR ---
CONSULTATION DATE: 04/29/2021 REFERRING PHYSICIAN: Dr. Betancourt INDICATION: Elevated troponin, atrial fibrillation/flutter. HISTORY OF PRESENT ILLNESS: Mr. Gomez is not well known to me but he has been followed by my partner, Dr. Rowley. He presented to emergency room yesterday after his found him laying on the ground. The patient tells me that he was ambulating this morning and he felt so weak that he actually collapsed to the ground in his garden. He did not lose consciousness but he said that he had no energy to actually get up so he was laying there for many hours. On presentation to the emergency room, he was found to be in atrial flutter with rapid ventricular response and underlying bifascicular block. He was also found to have acute renal failure. He was admitted for further management and with administration of chronic beta blockers, his heart rate has become well controlled. Somewhat unexpectedly though, he does test positive for Clostridium difficile toxin and eventually when I was talking to him last night and again this morning, he admits that he had diarrhea for at least two weeks. He denies any chest discomfort other than a very sensitive left upper quadrant which is the area on which he fell, but denies any anginal symptoms. He has no awareness of palpitations and he does not believe that his dyspnea is any than its baseline. Otherwise, the clinica course in the hospital so far has been positive for elevated troponin. The initial was 1.0 but it elmer to about 1.2 and has been declining since. He has an ECG that reveals atrial flutter with variable AV conduction and wide QRS complex consistent with bifascicular block. I do not appreciate any distinct ST-T abnormalities indicative of ischemia. An echocardiogram was performed yesterday and interpreted by myself. It reveals left ventricular ejection fraction in the neighborhood of 50-55% with septal wall motion abnormality consistent with pulmonary hypertension. He has very sclerotic aortic valve but the aortic stenosis is unlikely worse than approximately moderate. The mean gradient was only 20 mmHg and there is associated mild aortic insufficiency. He also has a heavily calcified mitral valve with functionally mild stenosis. I cannot rule out that he had an annuloplasty but I do not have the details of his surgery. Moderate tricuspid insufficiency was seen and calculated pulmonary artery pressure at least 60 mmHg. PAST MEDICAL HISTORY: 1. Coronary artery disease, CABG in 2008. I do not have details. 2. Chronic atrial fibrillation. 3. Hypertension. 4. Chronic renal insufficiency. 5. Type 2 diabetes. 6. Gout. 7. Hypothyroidism. 8. History of anemia. 9. COPD. 10. BPH. SURGICAL HISTORY: 1. CABG. 2. Hernia repair. 3. Rhinoplasty. 4. Elbow surgery. SOCIAL HISTORY: The patient lives with his . He has not been smoking for many years. He drinks a very minimal amount of alcohol. FAMILY HISTORY: His sister of coronary artery disease in her 50s. REVIEW OF SYSTEMS: He is a somewhat limited historian but he reports that he has been feeling unwell for about two weeks. He cannot really give me any specifics. He denies any chest pain, palpitations or dizziness. He has baseline dyspnea, approximately [place] Heart Association class 2-3. There was no prior history of syncope or near syncope, no abdominal pain until the last maybe 48 hours or so even though patient sounds rather vague about this. No peripheral edema. PHYSICAL EXAMINATION: Mr. Gomez is a 75-year-old man who appears roughly his age or maybe potentially younger. He feels clearly uncomfortable but does not appear in any distress. Last vital signs: Blood pressure 91/51, heart rate in the 70s to 90s, irregularly irregular. He is afebrile. Saturation is 94% on room air. His fluid balance yesterday was recorded as positive about three liters and he is positive a liter and a half today. Weight was recorded at 78.4 kilograms. His JVP is not grossly elevated but I do think it is about 2-3 cm above clavicle. Lungs are reasonably clear. Heart exam reveals irregular rhythm. There is a murmur at the aortic valve about 2/6 intensity that is harsh quality and is systolic ejection in nature, consistent with known aortic stenosis. The closing sound is still easily audible. I do not appreciate distinct murmur of mitral stenosis. No gallop, no rub. Abdomen is soft but distended. It is very tender in left upper quadrant. No distinct guarding. Bowel sounds are positive. Extremities have trace edema. Peripheral pulses are palpable. Neurologically, he is alert and oriented. His speech is intact. I do not appreciate any skin lesions. LABORATORY DATA: As of this morning, sodium 143, potassium 4.4, BUN 84. Creatinine was 4.87 last night. This morning, his creatinine is up to 5.4. Glucose was 136. Hemoglobin A1c 6.3. Troponin as per history of present illness. CBC as of this morning: WBC count 11.7, hemoglobin 9.2, hematocrit 28 and platelet count 49,000 which has been slowly dropping since admission 64,000. Urine is positive for 2+ protein for 2+ protein, 1+ glucose and 3+ blood. Serology: He tested negative for SARS, influenza and MRSA was detected on his skin. He tested positive for Clostridium difficile toxin. IMAGING STUDIES: He had a chest and abdominal CT that was consistent with likely liver cirrhosis and diverticulosis without diverticulitis plus prominent atherosclerotic changes in abdominal vessels. The chest CT was consistent with prior open heart surgery, COPD but no obvious effusions. There were findings consistent with pulmonary hypertension. ECGs and echocardiogram: As per history of present illness. ASSESSMENT AND PLAN: Mr. Gomez is a 75-year-old man who has chronic atrial fibrillation, coronary artery disease with history of CABG in 2008 with no recent function evaluation but no anginal symptoms who presented after a fall at home and profound weakness that did no allow him to get up for many hours. In my opinion, it is likely that the dominant problem is Clostridium difficile and resulting severe illness. I do not know how he got infection as he denies any recent contact in medical establishment and denies any recent use of antibiotics. He does have various cardiac problems that have been chronic and include atrial fibrillation/flutter, coronary artery disease, pulmonary hypertension that is moderately severe and approximately moderate aortic and mild mitral stenosis. I do believe that all these problems are chronic. From cardiac perspective, I do not have much to offer. I would continue beta blockers with holding parameters in order to continue rate control. I am afraid that the anticoagulation is very problematic in this setting due to severe thrombocytopenia and consequently I do not object this temporary interruption until his situation stabilizes. I do not believe that he is volume deficient. Based on echocardiogram, his inferior vena cava was actually distended and his JVP appears mildly elevated so I do not believe that he requires additional hydration. I also would probably temporarily hold the use of statins or at least reduce the dose. Otherwise, the management of the principal ID problem and renal failure remains with primary team and additional involved specialist. Please contact our service if further assistance is desired. If and once he recovers from his acute illness, he probably will need reevaluation for ischemia. VINCENT
[2021-04-29 12:00] VITALS: BP 110/64
[2021-04-29 12:33] LABS: PLTBLUE- EDTA FREE CALC 42 K/mm3 (172-450)
[2021-04-29 12:46] LABS: CHOLESTEROL LEVEL 120 MG/DL (<200); CHOLESTEROL RISK RATIO 4.444 (<5); HDL CHOLESTEROL 27 MG/DL (>40); LDL CHOLESTEROL 58 MG/DL (<100); NON-HDL-C 93 MG/DL; TRIGLYCERIDES LEVEL 177 MG/DL (<150)
[2021-04-29 12:55] LABS: HEPATITIS B SURFACE ANTIBODY NEGATIVE (POSITIVE)
[2021-04-29 13:05] LABS: HEPATITIS B SURFACE ANTIGEN NEGATIVE (NEGATIVE)
[2021-04-29 13:13] LABS: PLTBLUE- EDTA FREE MACHINE 38 10^3/uL (172-450)
[2021-04-29 13:33] LABS: HEPATITIS C VIRUS ABY INDEX < 0.0 INDEX (<0.8)
[2021-04-29 13:34] LABS: HEPATITIS B CORE ANTIBODY IGM NEGATIVE (NEGATIVE)
--- NOTE | 2021-04-29 13:56 | CR ---
CONSULTATION DATE: 04/29/2021 REQUESTING PHYSICIAN: Laci Marquez M.D. CONSULTING PHYSICIAN: Jackie Hobson M.D. REASON FOR CONSULTATION: Management of acute renal failure and metabolic abnormality. CHIEF COMPLAINT: The patient presented to the hospital two days ago with weakness and fall at home. HISTORY OF PRESENT ILLNESS: Raúl Gomez is a 75-year-old male with past medical history of chronic kidney disease stage 3 at baseline, history of atrial fibrillation, hypertension, multiple other comorbidities as mentioned below. He is well known to myself from nephrology office. He recently was having worsening acute renal failure superimposed on chronic kidney disease. His highest creatinine as outpatient was 3.7. At that time, his renal biopsy was done. Biopsy showed mesangial proliferative IgA nephropathy with acute interstitial nephritis on April 06, 2021 and after this diagnosis because of worsening renal failure, hematuria and proteinuria, the patient was started on prednisone and after that, his renal function started improving. His latest creatinine was 2.3 on April 22, 2021. However, after that, the patient started having loose stools and diarrhea and he fell at home before coming to the hospital. He was on the floor for about 7 hours. He was unable to get up and his came back home. She called EMS and the patient was brought to the emergency room. The patient was very weak and tired. He was dehydrated. He was started on IV fluid hydration. He was also in A fib with RVR. His heart rate was in 140s. The patient was admitted under the hospitalist service. His creatinine on arrival was 5. Despite IV fluid hydration, his renal function did not improve. His creatinine was 4.8 yesterday so nephrology service is called for further help in the management of this patient. I saw and evaluated the patient today morning at the bedside. He was sitting up in the sofa. He is getting IV fluid hydration. He has an indwelling Castillo catheter. He still complains of feeling weak and tired. He was also found to have C. diff colitis. He has been started on oral vancomycin. PAST MEDICAL HISTORY: 1. Chronic kidney disease stage 3. Best baseline creatinine last year was around 1.8. However, he had acute renal failure because of IgA nephropathy and his latest creatinine in the office on April 22 was 2.3. 2. History of coronary artery disease, status post CABG. 3. Atrial fibrillation. His Xarelto was stopped because of hematuria and RBC casts on the kidney biopsy. He has history of mitral valve annuloplasty, aortic stenosis, hypertension, chronic gout, hypothyroidism and BPH with lower urinary tract symptoms. PAST SURGICAL HISTORY: 1. Status post renal biopsy last month. 2. Status post coronary artery bypass grafting, mitral valve annuloplasty in the past. ALLERGIES: No known drug allergies. FAMILY HISTORY: No significant family history of end-stage renal disease. SOCIAL HISTORY: Denies any active smoking, illicit drug abuse or alcohol abuse at this time. REVIEW OF SYSTEMS: Constitutional: He reports feeling very weak and tired. Eyes: He denies any blurry vision, double vision. ENT: He denies any dysphagia, odynophagia. Cardiovascular: He reports palpitations on arrival but he is better now. Respiratory: He denies any shortness of breath or cough. GI: He reports diarrhea and the recent C. diff. Genitourinary: He reports hematuria and he is in acute renal failure. Musculoskeletal: He reports muscle weakness. Skin: He denies any rashes or ulcers. Hematological/Oncological: He denies any easy bleeding or bruising. [employer]: He reports recent fall and weakness. All other review of systems is negative. PHYSICAL EXAMINATION: GENERAL: The patient is awake, alert, oriented x3, sitting up in the sofa, feels weak and lethargic. VITAL SIGNS: Temperature is 96.9 degrees Fahrenheit, blood pressure 110/64, pulse is 93, respiratory rate of 18, saturating 97% on room air. INTAKE AND OUTPUT: Urine output recorded as 650 mL yesterday, 275 mL so far today since overnight. Weight in the bed scale is 78.4 kg. HEAD AND NECK: Extraocular muscles are intact. Pupils are equally round and reactive to light. Mucous membranes are moist. Neck is supple, mildly elevated JVD. CARDIOVASCULAR: S1, S2, regular rate. EXTREMITIES: No edema of the bilateral lower extremities. RESPIRATORY: Mildly decreased breath sounds at the bases, otherwise no active rales or rhonchi. ABDOMEN: Distended, tympanitic with a mild amount of tenderness in the right lower quadrant and left lower quadrant. GENITOURINARY: He has an indwelling Castillo catheter. Urine in the bag is blood-tinged. MUSCULOSKELETAL: No clubbing or cyanosis. [employer]: No focal deficits. Power is 5/5 in all extremities. LAB REVIEW: CBC showed a WBC of 16.4 on arrival and WBC is 11.7 today. Hemoglobin is 9.2. Platelets are 49. Urinalysis done yesterday showed 2+ protein, 3+ blood. BMP showed sodium 143, potassium 4.4, chloride 113, bicarb 15, BUN 84, creatinine 4.8. Glucose is 114. Ionized calcium is 3.8. Repeat BMP done today showed sodium 140, potassium 4.1, chloride 109, bicarb 15, BUN 90, creatinine 5.4, calcium 6.6. Microbiology: C. diff PCR in the stool is positive from yesterday. IMAGING: CT scan of the chest was done which showed moderate paraseptal and central lobar emphysematous changes. Fusiform dilatation of the ascending thoracic aorta which measures 3.8 cm. There is cardiomegaly. Enlargement of the central pulmonary arteries which can be associated with pulmonary artery hypertension. CT scan of the abdomen and pelvis was done on arrival which showed lobular surface of the liver, enlargement of the left caudate lobes, consistent with cirrhosis. Mild diverticulosis without diverticulitis. Echo was done which showed LV ejection fraction is 50-55%. Mild LVH was noted, dilated and hypokinetic right ventricle. Status post mitral valve annuloplasty, very high central pressures and moderate to severe pulmonary hypertension. CURRENT INPATIENT MEDICATIONS: The patient's medications were all reviewed by myself. 1. He was getting IV Zosyn which has been stopped. 2. He got sodium bicarbonate drip overnight which has been stopped now. 3. Mylanta p.r.n. 4. Amlodipine has been stopped. 5. Colace has been stopped. 6. Finasteride 5 mg p.o. daily. 7. Heparin has been stopped. 8. Insulin Lispro sliding scale. 9. Levothyroxine 88 mcg p.o. daily. 10. He was on prednisone 60 mg daily which I decreased to 40 mg p.o. daily today and from tomorrow I am starting him on Solu-Medrol 15 mg IV q12 hourly. 11. Metoprolol 25 mg p.o. q.6 hourly. 12. Milk of Magnesia p.r.n. 13. He has been started on Protonix 40 mg IV daily. 14. Simvastatin has been on hold. 15. He has been started on oral sodium bicarbonate 650 mg p.o. twice a day. 16. Flomax 0.4 mg p.o. daily. 17. Vancomycin 250 mg p.o. q.6 hourly. ASSESSMENT AND PLAN: 1. Acute renal failure superimposed on chronic kidney disease. The patient's baseline creatinine was 2.3 on April 22, one week ago. This acute renal failure is secondary to dehydration from C. diff colitis and being on the floor for many hours and atrial fibrillation. IV fluids were given but after looking at the echocardiogram and dilated hypokinetic right ventricle, I have stopped the IV fluids and I am actually going to give him a small dose of Lasix. There are no significant signs or symptoms of uremia. However, if patient's renal function does not improve over the next 24 to 48 hours, I would have a low threshold to start this patient on hemodialysis. 2. IgA nephropathy. The patient has mesangial proliferative IgA nephropathy on biopsy done last month along with acute interstitial nephritis. He was getting prednisone as outpatient. However, because of C. diff colitis, I have stopped the prednisone and I am starting him on IV Solu-Medrol and dose has been decreased to 15 mg IV twice a day. Unfortunately because of acute infection and C. diff colitis, I cannot give him any immunosuppression and if his C. diff colitis does not start improving, I might have to rapidly taper down prednisone as well. 3. Metabolic acidosis. The patient was getting bicarb maintaining fluid but because of a cor pulmonale, I have stopped the fluid and started on sodium bicarbonate 650 mg p.o. twice a day. 4. Pulmonary hypertension and cor pulmonale. His fluids have been stopped and as mentioned above, I am going to give him a dose of Lasix. 5. Anemia and chronic kidney disease. Hemoglobin is 9.2 and he has hematuria as well. I will check his iron levels and give him iron if needed. 6. Thrombocytopenia. Most likely it is associated with cirrhosis. Heparin-induced antibodies are pending. 7. History of hypertension. The patient was hypotensive on arrival. He does not need any antihypertensives at this time. 8. Atrial fibrillation. Anticoagulation is on hold because of hematuria and RBC casts on the renal biopsy. He continues to be on metoprolol as recommended by cardiology. 9. Hypothyroidism. Continue current dose of levothyroxine. 10. Coronary artery disease, status post CABG. The patient's simvastatin is on hold because of elevated CPK and patient was on the floor for many hours. He continues to be on metoprolol. 11. C. diff colitis. Most likely the use of prednisone might have increased his risk of C. diff colitis. He is currently on oral vancomycin. Continue current dose. He reports frequency of diarrhea is getting better now.
[2021-04-29] MEDS: PANTOPRAZOLE 40MG VIAL (C9113 PER 1) IV SCH (15:02)
[2021-04-29 16:00] VITALS: BP 103/51
--- NOTE | 2021-04-29 17:24 | IPNPDOC ---
Date Seen The patient was seen on 04/29/21. Progress Note SUBJECTIVE: This is hospital day 2 for this patient. The patient reports that he is still not feeling well today. He reports "just generally not feeling well and feeling weak." The patient does not report any focal weakness at this time. He reports good appetite without nausea, vomiting or constipation. The patient continues to have watery diarrhea. Nurses do report that the patient's frequency of bowel movements has decreased. Patient does not report any disturbances during the night. Nursing staff do not report any overnight events. OBJECTIVE PHYSICAL EXAMINATION: VITAL SIGNS: Please see below. GENERAL: Patient is lying back in bed in mild distress, alert and cooperative on exam HEENT:. Normocephalic, atraumatic, no conjunctival pallor, conjunctiva and lids normal CARDIOVASCULAR:. Systolic ejection murmur present, irregularly irregular rhythm. RESPIRATORY: Clear to auscultation bilaterally. ABDOMINAL: Soft, distended, pain on palpation in all quadrants, no rebound tenderness EXTREMITIES:. No edema, cyanosis NEUROLOGICAL: Good tone with good range of motion of all extremities PSYCHOLOGICAL: Alert, cooperative, oriented 4 LABORATORY DATA, IMAGING STUDIES, MICROBIOLOGY: Please see below. Echocardiogram: 04/28/2021 1. Study is of fair technical quality, patient is in atrial flutter with controlled rate. 2. Normal LV size with mild LVH, low normal LV systolic function with estimated EF around 50% to 55%. 3. Dilated hypokinetic right ventricle. 4. Prominent aortic sclerosis resulting in approximately moderate aortic stenosis (mean gradient 20 mmHg) and mild aortic insufficiency. 5. Likely status post mitral valve annuloplasty resulting in mild mitral stenosis (mean gradient 5 mmHg). 6. Very high central venous pressure and moderately severe pulmonary hypertension. 7. At least moderate tricuspid insufficiency. 8. Dilated pulmonary artery. DVT prophylaxis ordered: Heparin drip held due to thrombocytopenia, start TEDS and sequentials. ASSESSMENT AND PLAN: Patient is a 75-year-old male with an extensive cardiac history who presented with general malaise and resultant collapse at home leading to patient being down on the ground for an extensive period of time (7+ hours). #Generalized weakness and subsequent fall. Patient did not have head trauma and there was no loss of consciousness. Patient does not have any neurological symptoms. Patient's generalized malaise is likely secondary to severe dehydration due to C. diff colitis #Rhabdomyolysis Continue to trend CK levels continue IV hydration per nephrology #C. difficile colitis Abdominal exam, likely secondary to C. difficile infection. White count has decreased from 15 yesterday to 11.7 today, 08/10/2021 Continue oral vancomycin 250 mg by mouth Continue vancomycin trough level assessment. #CHARANJIT on CKD. Patient's creatinine level elevated despite IVF Nephrology consulted. Inpatient service team. Appreciate nephrology input. Continue maintenance IVF per nephrology orders. #Thrombocytopenia. Patient's platelets on admission were 64,000. However, after heparin drip administration be decreased further, today down to 49,000. Heparin induced thrombocytopenia is being considered as an etiology HIT antibodies ordered. EDTA free platelet level ordered to rule out pseudo-thrombocytopenia. #Atrial flutter with RVR. Patient presented with atrial flutter on admission. This was likely due to severe dehydration. Patient is currently in normal sinus rhythm. Dr. Olivares was consulted and he has no recommendations at this time. #Hypocalcemia on admission. Patient has hypoalbuminemia and with correction admitting calcium level was 8.14, borderline low-normal Patient has C. difficile colitis, which may be interfering with patient's absor ption of nutrients. Continue to monitor. #Hyperkalemia. Patient's potassium level on admission was 5.4 Today's level is 4.1, without kayexalate administration. DISPOSITION: Due to patient's kidney disease, nephrology management is still required. Continue vancomycin oral administration and monitor progress tomorrow to better assess discharge timing. VS, I&O, 24H, [facility] Vital Signs/I&O Vital Signs Date Time Temp Pulse Resp B/P (MAP) Pulse Ox O2 Delivery O2 Flow Rate FiO2 04/29/21 16:00 95.1 87 18 103/51 (68) 92 Room Air l I&O- Last 24 Hours up to 6 AM 04/29/21 06:00 Intake Total 3780 ml Output Total 925 ml Balance 2855 ml Laboratory Data 24H LABS Laboratory Tests 2 04/28/21 17:24: Bedside Glucose (Misc Panel) 131H 04/28/21 19:34: Bedside Glucose (Misc Panel) 210H 04/29/21 05:28: 04/29/21 05:30: Immature Granulocyte % (Auto) 0.8, Neutrophils (%) (Auto) 95.0H, Lymphocytes (%) (Auto) 1.5L, Monocytes (%) (Auto) 2.5, Eosinophils (%) (Auto) 0.1, Basophils (%) (Auto) 0.1, Neutrophils # (Auto) 11.2H, Lymphocytes # (Auto) 0.2L, Monocytes # (Auto) 0.3, Eosinophils # (Auto) 0.0, Basophils # (Auto) 0.0, Nucleated Red Blood Cells % (auto) 0.0, Immature Platelet Fraction 4.8, Anion Gap 16, Glomer ular Filtration Rate 11.0L, Calcium Level 6.6L, Triglycerides Level 177H, Total Cholesterol 120, LDL Cholesterol 58, Non-HDL Cholesterol (LDL + VLDL) 93, Total HDL Cholesterol 27L, Cholesterol/HDL Ratio 4.444, Hepatitis B Surface Antigen NEGATIVE, Hepatitis B Surface Antibody NEGATIVE, Hepatitis B Core IgM Antibody NEGATIVE, Hepatitis C Antibody Index < 0.0 04/29/21 11:35: 04/29/21 11:41: Differential Slide Review Report, Platelet Count, EDTA Free 42L, Peripheral Blood Smear Path Consult PERIPHERAL SMEAR CBC/BMP Laboratory Tests 04/29/21 05:30 Microbiology Microbiology 04/28/21 Gastrointestinal Tract Panel (PCR) - Final, Complete Clostridium Difficile A/B 04/28/21 Blood Culture - Preliminary, Resulted No growth after 24 hours . All specim... 04/28/21 Blood Culture - Preliminary, Resulted No growth after 24 hours . All specim... 04/28/21 Stool Occult Blood (JACKI) - Final, Complete GME ATTESTATION GME ATTESTATION My faculty preceptor for this patient encounter was physically present during the encounter and was fully available. All aspects of the patient interview, examination, medical decision making process, and medical care plan development were reviewed and approved by the faculty preceptor. The faculty preceptor is aware and concurs with the plan as stated in the body of this note and will attest to such by his/her cosignature. ATTENDING NOTE Attending Attestation: Patient independently seen and examined. I have discussed in detail with the resident the findings and plan of treatment as documented by the resident. I agree with their findings and treatment plan. I will continue to follow the patient during this hospital stay. Fredi Hobson DO Apr 29, 2021 17:24 ARTHUR SMITH MD Apr 30, 2021 09:53
[2021-04-29] MEDS ORDERED: FUROSEMIDE 40MG/4ML VIAL (J1940) IV ONE (17:25)
[2021-04-29] MEDS: methylPREDNISolone 40MG 1ML VIAL IV SCH (18:40)
[2021-04-29 19:11] LABS: HEMOGLOBIN A1c 6.6 %
[2021-04-29 20:00] VITALS: BP 134/78
[2021-04-29] MEDS: SODIUM BICARBONATE 325 MG TAB PO SCH (20:18)
[2021-04-29] MEDS: ACETAMINOPHEN TAB 650MG DOSE (2X325MG) PO PRN (23:18)
[2021-04-30] VITALS: BP 123/56
[2021-04-30 04:00] VITALS: BP 116/56
[2021-04-30 05:35] LABS: HEMATOCRIT 28.7 % (42.0-52.0); HEMOGLOBIN 9.5 g/dl (13.5-17.5); MEAN CORPUSCULAR HEMOGLOBIN 31.1 pg (27.0-33.0); MEAN CORPUSCULAR HGB CONC 33.1 g/dl (32.0-36.5); MEAN CORPUSCULAR VOLUME 94.1 fl (80.0-96.0); RED BLOOD COUNT 3.05 10^6/uL (4.30-6.10); WHITE BLOOD COUNT 11.6 10^3/uL (4.0-10.0)
[2021-04-30 05:40] LABS: PLATELET COUNT, AUTOMATED 44 10^3/uL (150-450)
--- NOTE | 2021-04-30 05:40 | ECGEPIP ---
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
[2021-04-30] MEDS: METOPROLOL TART 25 MG TABLET PO SCH ×3 (06:00→17:59)
[2021-04-30 06:02] LABS: CREATININE FOR GFR 6.3 MG/DL (0.70-1.30); GLOMERULAR FILTRATION RATE 9.2 (>42)
[2021-04-30] MEDS: VANCOMYCIN ORAL SOL 250MG/5ML ORAL SYRINGE PO SCH (06:05)
[2021-04-30] MEDS: LEVOTHYROXINE 88MCG TABLET (0.088 MG) PO SCH (06:05)
[2021-04-30] MEDS: methylPREDNISolone 40MG 1ML VIAL IV SCH ×2 (06:06→18:03)
[2021-04-30 08:30] VITALS: BP 126/57
[2021-04-30] MEDS: HumaLOG INSULIN (NovoLOG) PER UNIT SC SCH ×4 (09:06→21:00)
[2021-04-30] MEDS: FINASTERIDE 5 MG TAB PO SCH (09:06)
[2021-04-30] MEDS: SODIUM BICARBONATE 325 MG TAB PO SCH ×2 (09:07→21:36)
[2021-04-30] MEDS: TAMSULOSIN 0.4 MG CAP PO SCH (09:07)
[2021-04-30] MEDS ORDERED: fentaNYL 100 MCG/2 ML INJECTION (J3010) As Ordered ONE (10:22)
[2021-04-30] MEDS ORDERED: MIDAZOLAM INJ 2MG/2ML VIAL (J2250 PER 1MG) As Ordered ONE (10:23)
[2021-04-30] MEDS ORDERED: LIDOCAINE W/EPINEPHRINE 1% 20ML VIAL As Ordered ONE (10:24)
[2021-04-30] MEDS ORDERED: ceFAZolin 2 GM/D5W 50 ML IV BAG (J0690 PER 500MG) As Ordered ONE (10:27)
[2021-04-30] MEDS ORDERED: ceFAZolin SOD 2 GM in IV 1 EA IV ONE (11:00)
--- NOTE | 2021-04-30 11:08 | CR.PDOC ---
General Date of Consultation: Apr 30, 2021 Consultation REASON FOR CONSULTATION/CHIEF COMPLAINT: Need for PermCath HISTORY OF PRESENT ILLNESS: This is a very pleasant 75-year-old patient with acute on chronic renal insufficiency requiring access for dialysis. Risks benefits and alternatives to a PermCath placement were explained and the patient is agreeable to proceed. Informed consent was obtained. ALLERGIES: Please see below. HOME MEDICATIONS: Please see below. PAST MEDICAL HISTORY: CAD, A. fib, aortic stenosis, HTN, gout, hypothyroidism PAST SURGICAL HISTORY: MV annuloplasty, CABG, elbow surgery FAMILY HISTORY: CAD, HTN SOCIAL HISTORY: Lives with his , denies tobacco abuse but history of tobacco use, no significant alcohol use, denies illicit drug use REVIEW OF SYSTEMS: CONSTITUTIONAL: Positive malaise and weakness, denies ear chills HEENT: Denies new hearing or vision loss CARDIOVASCULAR: Denies chest pain RESPIRATORY: Positive cough, positive shortness of breath on exertion GENITOURINARY: Denies dysuria MUSCULOSKELETAL: Denies claudicate GASTROINTESTINAL: Positive heartburn SKIN: Denies rash NEUROLOGICAL: Denies stroke or seizure or headaches PSYCHIATRIC: Denies anxiety or depression ENDOCRINE: Positive thyroid disease, questionable prediabetic HEMATOLOGIC/LYMPHATIC: Denies anemia, positive thrombocytopenia ALLERGIC/IMMUNOLOGIC: Denies immune disease PHYSICAL EXAMINATION: VITAL SIGNS: Please see below. GENERAL APPEARANCE: Medically stable HEENT: NC, TMI RESPIRATORY: Slightly coarse breath sounds bilaterally CARDIOVASCULAR: Irregular rate and rhythm ABDOMEN: Soft nontender EXTREMITIES: Well perfused NEUROLOGICAL: Alert and oriented 3 moves all extremities equally PSYCHIATRIC: Pleasant and cooperative LABORATORY DATA: Please see below. ASSESSMENT/PLAN: Pleasant 75-year-old gentleman with acute on chronic renal insufficiency requiring urgent access for dialysis 1. Plan for PermCath placement today. Patient is at risk for bleeding and hematoma postprocedure due to thrombocytopenia. He will need his head significantly elevated to diminish venous pressure and the jugular vein for the next week until the catheter is incorporated. Platelet transfusion will be needed if patient has significant bleeding postprocedure. We appreciate the opportunity to participate in the care of this patient. Vital Signs/I&O Vital Signs Date Time Temp Pulse Resp B/P (MAP) Pulse Ox O2 Delivery O2 Flow Rate FiO2 04/30/21 10:47 97.3 86 20 96 Room Air 04/30/21 08:30 126/57 (80) I&O- Last 24 Hours up to 6 AM 04/30/21 06:00 Intake Total 0 ml Output Total 975 ml Balance -975 ml Laboratory Data Labs 24H Laboratory Tests 2 04/29/21 11:14: Bedside Glucose (Misc Panel) 138H 04/29/21 11:35: Hepatitis B Core IgG Antibody Negative 04/29/21 11:41: Differential Slide Review Report, Platelet Count, EDTA Free 42L, Peripheral Blood Smear Path Consult PERIPHERAL SMEAR 04/29/21 17:39: Bedside Glucose (Misc Panel) 169H 04/29/21 20:11: Bedside Glucose (Misc Panel) 140H 04/30/21 04:40: Nucleated Red Blood Cells % (auto) 0.0, Anion Gap 19H, Glomerular Filtration Ra te 9.2L, Calcium Level 6.0L, Total Creatine Kinase 481H CBC/BMP Laboratory Tests 04/30/21 04:40 Microbiology Microbiology 04/28/21 Gastrointestinal Tract Panel (PCR) - Final, Complete Clostridium Difficile A/B 04/28/21 Blood Culture - Preliminary, Resulted No Growth after 48 hours. All Specime... 04/28/21 Blood Culture - Preliminary, Resulted No Growth after 48 hours. All Specime... 04/28/21 Stool Occult Blood (JACKI) - Final, Complete Allergies Coded Allergies: No Known Allergies (Verified , 08/01/18) Home Medications Scheduled Amlodipine Besylate (Amlodipine Besylate) 5 Mg Tablet, 5 MG PO DAILY, (Reported) Finasteride (Finasteride) 5 Mg Tablet, 5 MG PO DAILY, (Reported) Gabapentin (Gabapentin) 300 Mg Cap, 300 MG PO QID, (Reported) Levothyroxine Sodium (Levoxyl) 88 Mcg Tab, 88 MCG PO DAILY, (Reported) Lovastatin (Lovastatin) 40 Mg Tab, 80 MG PO QHS, (Reported) Metoprolol Succinate (Toprol Xl) 100 Mg Tab.er.24h, 100 MG PO DAILY, (Reported) Prednisone (Prednisone) 20 Mg Tablet, 60 MG PO DAILY, (Reported) Sodium Zirconium Cyclosilicate (Lokelma) 10 Gm Powd.pack, 10 GM PO 3XW, (Reported) TUESDAY, TUESDAY AND TUESDAY: HAS NOT STARTED YET Tamsulosin HCl (Flomax) 0.4 Mg Capsule, 0.4 MG PO DAILY, (Reported) TAKES AROUND LUNCHTIME CEDERSTRAND,RUI L. MD Apr 30, 2021 11:08
--- NOTE | 2021-04-30 11:46 | ROOPDOC ---
[facility] Report Of Operation Report of Operation DATE OF PROCEDURE: 04/30/21 PREPROCEDURE DIAGNOSES: Renal failure requiring access for dialysis POSTPROCEDURE DIAGNOSES: Same PROCEDURE: 1. Ultrasound-guided access right internal jugular vein 2. Placement of a 23 cm tunneled PermCath right internal jugular vein SURGEON: Rui Mustafa MD ANESTHESIA: Local anesthesia 12 mL lidocaine. Moderate intravenous conscious sedation was not utilized for this case. The patient did receive analgesia, 25 g IV fentanyl, and tolerated this well. He also received Ancef 2 g IV prior to the procedure. INDICATION FOR PROCEDURE: This very pleasant 75-year-old gentleman with acute on chronic renal insufficiency requiring access for dialysis. Wrist benefits and alternatives to a PermCath placement were explained to the patient needs agreeable to proceed. Informed consent was obtained. The patient does have thrombocytopenia, current platelet count 44,000, and we will be exceptionally careful to try and minimize risk of bleeding during the procedure. He understands that he is at greater risk for bruising and bleeding with catheter placement, and understands that we will do whatever we can to mitigate this. If he does have significant bruising or bleeding after the procedure, he may need platelet transfusion, but we will do this on an as-needed basis. INTERPRETATION: The PermCath is in good position, no kinks in the catheter, the tip freely mobile at the right atrial SVC junction. There is no pneumothorax. It is okay to use the catheter for dialysis. REPORT OF OPERATION: The patient was brought to the angiographic suite in stable condition. His right neck and chest were prepped and draped in a sterile fashion. A timeout was performed. Antibiotics and analgesia were administered without complication. Local anesthesia was administered to the skin and subcutaneous tissue over the right neck and chest. A microneedle was used to access the right internal jugular vein under ultrasound guidance. A wire was passed through this access and a micro-sheath was placed. A small incision was made at the right neck jugular access site and on the lateral right chest just inferior to the clavicle. A J-wire was advanced through the jugular access into the central system under fluoroscopic guidance. We then performed 2 serial dilations over the wire using a Seldinger technique and then the peel-away sheath was placed over the wire. We tunneled PermCath from the right chest to the jugular access site [place] was within subcutaneous tissue. We then removed the wire and a cannula for the peel-away sheath and advanced the tips of the catheter through the peel-away sheath. The peel-away sheath was removed. Both ports david back and flushed easily and were heparin locked. Appropriate caps were placed. Final imaging showed the catheter to be in good position with the tip freely mobile at the SVC right atrial junction and no kinks in the catheter, no pneumothorax. We irrigated the jugular access site was saline and approximate the deep tissues with interrupted Monocryl suture, and close the deep dermal layer with interrupted Monocryl suture. The skin was dressed with Dermabond. We then used a Prolene to close the chest access site and to secure the catheter to the chest wall. Sterile dressings were applied and the patient was transferred back to recovery with the head of bed elevated to minimize jugular venous pressure and minimize chance of bleeding/bruising, and he was in stable condition. No significant bleeding was encountered the procedure. He tolerated the procedure well with minimal analgesia. ESTIMATED BLOOD LOSS: Approximately 2 mL. COMPLICATIONS: None. PLAN: It is okay to use the catheter for dialysis. It is okay to resume preprocedure diet, medications, and orders per the primary team. We need to keep the head of bed elevated over the next week until the catheter as well incorporated. This will minimize jugular venous pressure and minimize the chance of bleeding or bruising, as the patient has significant thrombocytopenia. We appreciate the opportunity to participate in the care of this patient. RUI MUSTAFA MD Apr 30, 2021 11:46
[2021-04-30] MEDS: IRON SUCROSE 100MG 5ML VIAL (J1756 PER 1MG) IV SCH (12:18)
--- NOTE | 2021-04-30 13:12 | IPNPDOC ---
Date Seen The patient was seen on 04/30/21. Progress Note SUBJECTIVE: This is hospital day 3 for this patient. The patient reports that he is still not feeling well today, again. He reports "just generally not feeling well and feeling weak," again. The patient does not report any focal weakness at this time. He reports good appetite without nausea, vomiting or constipation. The patient continues to have watery diarrhea. Nurses do report that the eliecer ent's frequency of bowel movements remains 6, as of yesterday. Patient does not report any disturbances during the night. Nursing staff do not report any overnight events. OBJECTIVE PHYSICAL EXAMINATION: VITAL SIGNS: Please see below. GENERAL: Patient is sitting up in the bedside chair in mild distress, alert and cooperative on exam HEENT:. Normocephalic, atraumatic, no conjunctival pallor, conjunctiva and lids normal CARDIOVASCULAR:. Systolic ejection murmur present, irregularly irregular rhythm. RESPIRATORY: Clear to auscultation bilaterally. ABDOMINAL: Soft, distended, pain on palpation in all quadrants, no rebound tenderness EXTREMITIES:. No edema, cyanosis NEUROLOGICAL: Good tone with good range of motion of all extremities PSYCHOLOGICAL: Alert, cooperative, oriented 4 LABORATORY DATA, IMAGING STUDIES, MICROBIOLOGY: Please see below. Echocardiogram: 04/28/2021 1. Study is of fair technical quality, patient is in atrial flutter with controlled rate. 2. Normal LV size with mild LVH, low normal LV systolic function with estimated EF around 50% to 55%. 3. Dilated hypokinetic right ventricle. 4. Prominent aortic sclerosis resulting in approximately moderate aortic stenosis (mean gradient 20 mmHg) and mild aortic insufficiency. 5. Likely status post mitral valve annuloplasty resulting in mild mitral stenosis (mean gradient 5 mmHg). 6. Very high central venous pressure and moderately severe pulmonary hypertension. 7. At least moderate tricuspid insufficiency. 8. Dilated pulmonary artery. DVT prophylaxis ordered: Heparin drip held due to thrombocytopenia, start TEDS and sequentials. ASSESSMENT AND PLAN: Patient is a 75-year-old male with an extensive cardiac history who presented with general malaise and resultant collapse at home l eading to patient being down on the ground for an extensive period of time (7+ hours). #Generalized weakness and subsequent fall. Patient did not have head trauma and there was no loss of consciousness. Patient does not have any neurological symptoms. Patient's generalized malaise is likely secondary to severe dehydration due to C. diff colitis #Rhabdomyolysis Continue to trend CK levels -Has decreased by half, at 481 now, (843 on admission). continue IV hydration per nephrology #Left-sided abdominal pain after fall. Rib x-rays ordered left side, 04/30/2021 #C. difficile colitis Abdominal exam, likely secondary to C. difficile infection. White count has decreased from 15 yesterday to 11.7 today, 08/10/2021 Continue oral vancomycin 250 mg by mouth Continue vancomycin trough level assessment. -ID consultation placed, due to patient's continued abdominal symptoms without decrease in frequency of bowel movements. #CHARANJIT on CKD. Patient's creatinine level elevated despite IVF Nephrology consulted. Inpatient service team. Appreciate nephrology input. Continue maintenance IVF per nephrology orders. #IgA nephropathy -Patient is receiving IV Solu-Medrol at this time due to C. difficile, per nephrology. -Nephrology is managing, inpatient service appreciates nephrology input #Thrombocytopenia. Patient's platelets on admission were 64,000. However, after heparin drip adm inistration be decreased further, today down to 44,000. Heparin induced thrombocytopenia is being considered as an etiology HIT antibodies pending. EDTA free platelet levels also reflect thrombocytopenia. -continue with TEDS and sequentials for DVT prophylaxis at this time. #Atrial flutter with RVR. Patient presented with atrial flutter on admission. This was likely due to severe dehydration. Patient is currently in normal sinus rhythm. -Patient continues to have episodes of tachycardia on telemetry, but this is associated with movement from the bed to the bedside chair. Dr. Olivares was consulted and he has no recommendations at this time. #Hypocalcemia on admission. Patient has hypoalbuminemia and with correction admitting calcium level was 8.14, borderline low-normal Patient has C. difficile colitis, which may be interfering with patient's absorption of nutrients. Continue to monitor. #Hyperkalemia. Patient's potassium level on admission was 5.4 Today's level is 4.1, without kayexalate administration. DISPOSITION: Due to patient's kidney disease, nephrology management is still required. Continue vancomycin oral administration and ID consultation.. VS, I&O, 24H, Fishbone Vital Signs/I&O Vital Signs Date Time Temp Pulse Resp B/P (MAP) Pulse Ox O2 Delivery O2 Flow Rate FiO2 04/30/21 11:25 88 20 99 Nasal Cannula 2.0 04/30/21 10:47 97.3 04/30/21 08:30 126/57 (80) I&O- Last 24 Hours up to 6 AM 04/30/21 06:00 Intake Total 0 ml Output Total 975 ml Balance -975 ml Laboratory Data 24H LABS Laboratory Tests 2 04/29/21 17:39: Bedside Glucose (Misc Panel) 169H 04/29/21 20:11: Bedside Glucose (Misc Panel) 140H 04/30/21 04:40: Nucleated Red Blood Cells % (auto) 0.0, Anion Gap 19H, Glomerular Filtration Rate 9.2L, Calcium Level 6.0L, Total Creatine Kinase 481H CBC/BMP Laboratory Tests 04/30/21 04:40 Microbiology Microbiology 04/28/21 Gastrointestinal Tract Panel (PCR) - Final, Complete Clostridium Difficile A/B 04/28/21 Blood Culture - Preliminary, Resulted No Growth after 48 hours. All Specime... 04/28/21 Blood Culture - Preliminary, Resulted No Growth after 48 hours. All Specime... 04/28/21 Stool Occult Blood (JACKI) - Final, Complete GME ATTESTATION GME ATTESTATION My faculty preceptor for this patient encounter was physically present during t he encounter and was fully available. All aspects of the patient interview, examination, medical decision making process, and medical care plan development were reviewed and approved by the faculty preceptor. The faculty preceptor is aware and concurs with the plan as stated in the body of this note and will attest to such by his/her cosignature. ATTENDING NOTE Attending Attestation: Patient independently seen and examined. I have discussed in detail with the resident the findings and plan of treatment as documented by the resident. I agree with their findings and treatment plan. I will continue to follow the patient during this hospital stay. Fredi Hobson DO Apr 30, 2021 13:12 ARTHUR SMITH MD May 01, 2021 06:32
[2021-04-30] MEDS: PANTOPRAZOLE 40MG VIAL (C9113 PER 1) IV SCH (14:00)
[2021-04-30 16:00] VITALS: BP 124/58
--- NOTE | 2021-04-30 17:49 | REP ---
INDICATION: left-sided pain after fall. COMPARISON: No prior rib series for comparison. Previous portable examination of the chest 06/19/2018 which is the latest prior for comparison has been reviewed TECHNIQUE: Five views of the left ribs with frontal view of the chest FINDINGS: The frontal view of the chest shows cardiomegaly and patchy new left lower lobe opacities some with air bronchograms. There has been previous median sternotomy. There is diffuse scattered interstitial fibrotic change which appears stable. There is chronic right CP angle blunting. There is a double lumen central venous catheter in place the tip of which is in the superior vena cava/right atrial junction region Multiple views of the left ribs shows a single area of cortical irregularity involving the anterior 7th rib. This is seen on 4 of the five views. IMPRESSION: Negative rib series. 1. Left rib fracture as described above. 2. New left lower lobe opacity seen on the frontal view of the chest possibly secondary to atelectasis from respiratory splinting due to left-sided pain. Certainly, pneumonia cannot be ruled out and needs to be clinically evaluated for. A concomitant left pleural effusion cannot be ruled out. 3. Other findings as described above. <Electronically signed by Gilles Pimentel > 04/30/21 [id number]
[2021-04-30 19:53] VITALS: BP 121/60
[2021-04-30 20:00] VITALS: BP 147/65
[2021-04-30] MEDS: FIDAXOMICIN 200 MG TAB (DIFICID) PO SCH (21:36)
[2021-05-01] VITALS: BP 139/67
--- NOTE | 2021-05-01 00:51 | IPN ---
NEPHROLOGY PROGRESS NOTE DATE: 04/30/2021 SUBJECTIVE: Patient was seen and examined at the bedside today morning. Patient was afebrile, hemodynamically stable, however, he reports that he is still feeling very weak and tired and fatigued. His diarrhea is getting better with oral Vancomycin, however, there is no improvement in the renal function. Creatinine has bumped up to 6.3 today. His BUN was 111. He is still acidotic. I discussed with the patient that he probably needs to start hemodialysis before we wait for his acute renal failure to get better. Patient agreed for hemodialysis and I requested vascular surgery to place a tunneled dialysis catheter. Patient got the catheter placed and first session of hemodialysis was arranged at dialysis center. OBJECTIVE: VITAL SIGNS: Temperature 97.9 degrees Fahrenheit, blood pressure 124/58, pulse 73, respiratory rate 18, saturating 91% on room air. INTAKE/OUTPUT: Urine output recorded as 675 mL since overnight. Weight in the bed scale is 80.4 kg. PHYSICAL EXAMINATION: GENERAL: Patient is awake, alert, oriented x3, sitting up in the bed, feeling weak and tired. Depressed mood. HEAD/NECK: Extraocular muscles intact. Pupils equally round and reactive to light. Mucous membranes are moist. Neck is supple. Mildly elevated JVD was noted. CVS: S1, S2, regular rate. No edema of the bilateral lower extremities. RESPIRATORY: Mildly decreased breath sounds at the bases bilaterally. ABDOMEN: Distended. No organomegaly was noted. GENITOURINARY; She has an indwelling Castillo catheter. MUSCULOSKELETAL: No clubbing or cyanosis. Pulses are 2+. He has mild asterixis. PROFESSOR OF FINANCE: Mild asterixis is noted. Otherwise patient is able to follow commands. LABORATORY REVIEW: CBC showed WBC 11.6, hemoglobin 9.5, platelets 44,000. BMP showed sodium 139, potassium 4, chloride 105, bicarb 15, BUN 111, creatinine 6.3. Calcium 6. CPK 481. IMAGING: X-ray of the chest was done, which showed left rib fracture and left lower lobe opacity, possibly secondary to atelectasis. CURRENT INPATIENT MEDICATIONS: Patient's medications were all reviewed by myself. No significant change in the medications today except that his oral Vancomycin has been stopped. He has been started on Dificid 200 mg p.o. twice a day. ASSESSMENT AND PLAN: 1. Acute renal failure: Patient's renal function was deteriorating, he has metabolic acidosis, he is developing uremia. So urgent dialysis catheter placement was arranged and first session of hemodialysis was done today. Next dialysis will be done tomorrow morning. 2. IgA nephropathy: Patient has been mesangial proliferative IgA nephropathy along with severe acute interstitial nephritis, which was biopsy proven last month. He was being given steroids as an outpatient, currently I have him on I.V. Solu-Medrol. No further immunosuppression can be done because of C. diff colitis. 3. C. diff colitis: It might be associated with the use of steroids, she has been started on Dificid. Diarrhea is getting better. 4. Metabolic acidosis: Patient has been started on dialysis. Acidosis should get better with that. 5. Anemia with renal failure: Patient will be started on Venofer and Aranesp as needed to bring his hemoglobin above 10. 6. Pulmonary hypertension and cor pulmonale: Patient will get fluid removal with dialysis now. 7. Thrombocytopenia: Most likely it is associated with cirrhosis. Patient will not get Heparin with dialysis. 8. Atrial fibrillation: Anticoagulation is on hold because of hematuria. He is on Metoprolol. If hematuria gets better, then low dose of Eliquis will be started. 9. Coronary artery disease; status post CABG: Simvastatin is on hold. Continue Metoprolol. DISPOSITION: I requested the PFS consult for placement of patient at outpatient dialysis center for acute renal failure.
[2021-05-01 03:51] VITALS: BP 124/60
[2021-05-01 04:00] LABS: BASO % 0.1 % (0.0-1.0); EOS % 0.1 % (0.0-3.0); HEMATOCRIT 28.3 % (42.0-52.0); HEMOGLOBIN 9.6 g/dl (13.5-17.5); LYMPH # 0.2 10^3/uL (1.5-5.0); LYMPH % 1.6 % (24.0-44.0); MEAN CORPUSCULAR HEMOGLOBIN 31.6 pg (27.0-33.0); MEAN CORPUSCULAR HGB CONC 33.9 g/dl (32.0-36.5); MEAN CORPUSCULAR VOLUME 93.1 fl (80.0-96.0); MONO # 0.4 10^3/uL (0.0-0.8); MONO % 3.3 % (2.0-8.0); NEUTROPHILS # 10.1 10^3/uL (1.5-8.5); RED BLOOD COUNT 3.04 10^6/uL (4.30-6.10); WHITE BLOOD COUNT 10.8 10^3/uL (4.0-10.0)
[2021-05-01 04:01] LABS: PLATELET COUNT, AUTOMATED 46 10^3/uL (150-450)
[2021-05-01 04:18] LABS: CREATININE FOR GFR 5.17 MG/DL (0.70-1.30); GLOMERULAR FILTRATION RATE 11.6 (>42); POTASSIUM SERUM 4.2 MEQ/L (3.5-5.1)
[2021-05-01 04:19] LABS: CALCIUM LEVEL 7.2 MG/DL (8.8-10.2)
[2021-05-01] MEDS: METOPROLOL TART 25 MG TABLET PO SCH ×5 (06:00→23:36)
[2021-05-01] MEDS: LEVOTHYROXINE 88MCG TABLET (0.088 MG) PO SCH (06:11)
[2021-05-01] MEDS: methylPREDNISolone 40MG 1ML VIAL IV SCH ×2 (06:11→18:46)
[2021-05-01] MEDS: HumaLOG INSULIN (NovoLOG) PER UNIT SC SCH ×4 (07:30→20:32)
[2021-05-01] MEDS ORDERED: SLF 3 ML SYR IV PRN (07:50)
[2021-05-01 08:00] VITALS: BP 120/61
[2021-05-01] MEDS: IRON SUCROSE 100MG 5ML VIAL (J1756 PER 1MG) IV SCH (09:20)
--- NOTE | 2021-05-01 10:31 | IPNPDOC ---
Date Seen The patient was seen on 05/01/21. Progress Note SUBJECTIVE: This is hospital day 4 for this patient. The patient reports that he is feeling better today. Patient had dialysis yesterday and tolerated it well. He is scheduled for another dialysis procedure today. The patient does not report any focal weakness at this time. He reports good appetite without nausea, vomiting or constipation. The patient continues to have diarrhea, however, it is softly formed now. Patient had received his first dose of Dificid yesterday. Patient does not report any disturbances during the night. Nursing staff reports that overnight the patient's dialysis catheter site started losing and they marked on the gauze overlying the catheter site where the bruising was. Today, the losing has not been passed that line demarcated overnight. The patient denies any neck pain at this time. OBJECTIVE PHYSICAL EXAMINATION: VITAL SIGNS: Please see below. GENERAL: Patient is lying in bed, upright, in no acute distress, alert and cooperative on exam HEENT:. Normocephalic, atraumatic, no conjunctival pallor, conjunctiva and lids normal CARDIOVASCULAR:. Systolic ejection murmur present 3/6, irregularly irregular rhythm. RESPIRATORY: Clear to auscultation bilaterally. ABDOMINAL: Soft, nondistended, nontender, bowel sounds present. EXTREMITIES:. No edema, cyanosis, pedal pulses +2 bilaterally. NEUROLOGICAL: Good tone with good range of motion of all extremities PSYCHOLOGICAL: Alert, cooperative, oriented 4 LABORATORY DATA, IMAGING STUDIES, MICROBIOLOGY: Please see below. Echocardiogram: 04/28/2021 1. Study is of fair technical quality, patient is in atrial flutter with controlled rate. 2. Normal LV size with mild LVH, low normal LV systolic function with estimated EF around 50% to 55%. 3. Dilated hypokinetic right ventricle. 4. Prominent aortic sclerosis resulting in approximately moderate aortic stenosis (mean gradient 20 mmHg) and mild aortic insufficiency. 5. Likely status post mitral valve annuloplasty resulting in mild mitral stenosis (mean gradient 5 mmHg). 6. Very high central venous pressure and moderately severe pulmonary hypertension. 7. At least moderate tricuspid insufficiency. 8. Dilated pulmonary artery. DVT prophylaxis ordered: Heparin drip held due to thrombocytopenia, start TEDS and sequentials. ASSESSMENT AND PLAN: Patient is a 75-year-old male with an extensive cardiac history who presented with general malaise and resultant collapse at home leading to patient being down on the ground for an extensive period of time (7+ hours). #Generalized weakness and subsequent fall. Patient's generalized malaise is likely secondary to severe dehydration due to C. diff colitis Patient did not have head trauma and there was no loss of consciousness. Patient does not have any neurological symptoms. -Generally improving, downgraded to Med/Surg. #Left rib fracture Continue to monitor for respiratory exacerbations. Patient is tolerating pain well at this time without pain medication Consider pain medication, complains of intolerable, or unmanageable pain. #Rhabdomyolysis Continue to trend CK levels -Has decreased by half, at 481 on 04/30/2021, (843 on admission). continue IV hydration per nephrology #C. difficile colitis Abdominal exam, likely secondary to C. difficile infection. White count has decreased from 15 04/29/2021 to 10.8 today, 05/01/2021 Discontinued vancomycin on 09/09/2021 Continue Dificid 200 mg twice a day. -ID consulted, and patient service team appreciates infectious disease specialist input. #CHARANJIT on CKD. Patient's creatinine level elevated despite IVF Nephrology consulted. Patient received hemodialysis yesterday with 500 mL being taken off, patient tolerated well. Patient's dialysis catheter isn't using at this time, nephrology was informed. Dr. Hobson, underwriting operations manager, reported that he is aware and this may be due to thrombocytopenia secondary to cirrhosis. Patient will still receive dialysis today. Inpatient service team appreciates nephrology input. Continue maintenance IVF per nephrology orders. #IgA nephropathy -Patient is receiving IV Solu-Medrol at this time due to C. difficile, per nephrology. -Nephrology is managing, inpatient service appreciates nephrology input #Thrombocytopenia likely secondary to cirrhosis. Patient's platelets on admission were 64,000. However, after heparin drip administration be decreased further, today down to 44,000. Heparin induced thrombocytopenia is being considered as an etiology HIT antibodies pending. EDTA free platelet levels also reflect thrombocytopenia. -continue with TEDS and sequentials for DVT prophylaxis at this time. #Atrial flutter with RVR. Patient presented with atrial flutter on admission. This was likely due to severe dehydration. Patient is currently in normal sinus rhythm. -Patient continues to have episodes of tachycardia on telemetry, but this is as sociated with movement from the bed to the bedside chair. Dr. Olivares was consulted and he has no recommendations at this time. #Hypocalcemia Patient has hypoalbuminemia and with correction admitting calcium level was 7.2, borderline low-normal, but patient also had hypoalbuminemia on admission, t his is likely secondary to patient's hepatic pathology. Patient has C. difficile colitis, which may be interfering with patient's absorption of nutrients. Continue to monitor. #Hyperkalemia. Patient's potassium level on admission was 5.4 Today's level is 4.2, without kayexalate administration. DISPOSITION: Due to patient's kidney disease, nephrology management is still required. Continue the Fidaxomicin administration and ID consultation. VS, I&O, 24H, Fishbone Vital Signs/I&O Vital Signs Date Time Temp Pulse Resp B/P (MAP) Pulse Ox O2 Delivery O2 Flow Rate FiO2 05/01/21 08:00 97.3 78 18 120/61 (80) 92 Room Air 04/30/21 11:25 2.0 I&O- Last 24 Hours up to 6 AM 05/01/21 05:59 Intake Total 600 ml Output Total 1175 ml Balance -575 ml Laboratory Data 24H LABS Laboratory Tests 2 04/30/21 15:01: Bedside Glucose (Misc Panel) 124H 04/30/21 21:35: Bedside Glucose (Misc Panel) 169H 05/01/21 03:31: Immature Granulocyte % (Auto) 0.9, Neutrophils (%) (Auto) 94.0H, Lymphocytes (%) (Auto) 1.6L, Monocytes (%) (Auto) 3.3, Eosinophils (%) (Auto) 0.1, Basophils (%) (Auto) 0.1, Neutrophils # (Auto) 10.1H, Lymphocytes # (Auto) 0.2L, Monocytes # (Auto) 0.4, Eosinophils # (Auto) 0.0, Basophils # (Auto) 0.0, Nucleated Red Blood Cells % (auto) 0.0, Immature Platelet Fraction 4.3, Anion Gap 13, Glomerular Filtration Rate 11.6L, Calcium Level 7.2#L CBC/BMP Laboratory Tests 05/01/21 03:31 Microbiology Microbiology 04/28/21 Gastrointestinal Tract Panel (PCR) - Final, Complete Clostridium Difficile A/B 04/28/21 Blood Culture - Preliminary, Resulted No Growth after 72 hours. All specime... 04/28/21 Blood Culture - Preliminary, Resulted No Growth after 72 hours. All specime... 04/28/21 Stool Occult Blood (JACKI) - Final, Complete GME ATTESTATION GME ATTESTATION My faculty preceptor for this patient encounter was physically present during the encounter and was fully available. All aspects of the patient interview, examination, medical decision making process, and medical care plan development were reviewed and approved by the faculty preceptor. The faculty preceptor is aware and concurs with the plan as stated in the body of this note and will attest to such by his/her cosignature. ATTENDING NOTE Attending Attestation: Patient independently seen and examined. I have discussed in detail with the resident the findings and plan of treatment as documented by the resident. I agree with their findings and treatment plan. I will continue to follow the patient during this hospital stay. Fredi Hobson DO May 01, 2021 10:31 ARTHUR SMITH MD May 02, 2021 06:28
--- NOTE | 2021-05-01 10:47 | CR ---
CONSULTATION DATE: 04/30/2021 Asked to consult by Dr. Hobson for evaluation of Clostridium (C) difficile colitis. HISTORY OF PRESENT ILLNESS: Mr. Gomez is a 75-year-old gentleman who was admitted after he was very weak and fell. He was going to the kitchen and fell. Landed on his side. He laid on the floor until 4 o'clock in the afternoon when his came back for work. She was not able to get him up, and therefore they called the paramedics. He stated he had diarrhea for about 2 days prior to admission. He was having increasing shortness of breath with exertion. He had decreased appetite, intermittent hematuria. Denies any dysuria, cough, or sputum production. He had no abdominal pain. Now he complains of pleuritic pain on the left side. He states it is related to his fall and bruises of his chest. He had no fever. Had some chills but no nausea or vomiting. Patient was noted in the emergency room to be dehydrated with atrial fibrillation and rapid ventricular response. He had a stool for C. difficile that was positive. He was started on oral vancomycin. For the past 24 hours he received 24 hours of intravenous (IV) vancomycin and Zosyn as well. Patient had a bowel movement today, which was formed. He feels better. He has not had any antibiotic to trigger this episode of C. difficile and no previous episode of C. difficile. He had a kidney biopsy done for workup of acute renal failure with IgA nephropathy on April 01, and he has been on prednisone 60 mg. MEDICAL HISTORY: Significant for: 1. Coronary artery disease, status post coronary artery bypass graft (CABG). 2. Atrial fibrillation, on Xarelto. 3. Mitral valve annuloplasty. 4. Aortic stenosis. 5. Hypertension. 6. Gout. 7. Hypothyroidism. No history of diabetes. SOCIAL HISTORY: He denies alcohol use, drug use, or tobacco use. He is . He lives with his , who works timekeeper in the school at [employer]. FAMILY HISTORY: Nonrevealing. REVIEW OF SYSTEMS: He complains of pain on his knees and ribs. He denies any abdominal pain. His diarrhea has resolved. No nausea or vomiting. Appetite is good. PHYSICAL EXAMINATION: He is awake, oriented in no acute distress. HEART: Normal S1, S2 with a holosystolic ejection murmur, 3/6, best heard at the right upper sternal border. LUNGS: Diminished at the bases but clear. No wheezes, rales, or rhonchi. ABDOMEN: Obese, soft, nontender. Multiple ecchymosis along his ribcage. EXTREMITIES: Pitting edema +1 bilaterally. Chest wall he has a subclavian hemodialysis catheter with bleeding around the site. SKIN: Multiple abrasions and scabs on his knees and elbows. LABORATORY DATA: White count 11.6, down from 15, hemoglobin 9.5, hematocrit 28.7, platelets 44, which have dropped over the past 3 weeks from 193. Blood cultures times two sets were no growth after 24 hours. Stool Hemoccult was negative. Stool for C. difficile on April 28 was positive. Methicillin-resistant Staphylococcus aureus (MRSA). screen was positive on April 28. Hepatitis B, C were negative. Hepatitis B core IgG negative. HIV test was not done. MEDICATIONS: - Vancomycin one dose was given on April 28 and was discontinued. - Zosyn was discontinued. - insulin sliding scale - metoprolol 25 mg by mouth every 6 hours - Proscar 5 mg by mouth daily - pantoprazole 40 mg IV every 24 hours - methylprednisolone 15 mg IV every 12 hours - levothyroxine 88 mcg by mouth daily - Tylenol as needed - iron 100 mg IV with hemodialysis ALLERGIES: No known drug allergies. IMPRESSION: This is a 75-year-old gentleman with a history of acute renal failure superimposed on chronic kidney disease, admitted with dehydration from Clostridium (C) difficile colitis. The patient did not have any antibiotics in the past 6 months before admission. He was treated with vancomycin 250 mg every 6 hours with improvement of his symptoms. He has been diagnosed with IgA nephropathy and has been on high-dose prednisone, which could have caused his immunosuppression and his C. difficile colitis, as the patient has not had any antibiotics. PLAN: Patient has improved with oral vancomycin, but the drug of choice for C. difficile colitis is fidaxomicin 200 mg by mouth twice a day for 10 days. If his insurance covers it, I would recommend using fidaxomicin for a 10-day course. Patient and the family understand there is risk of recurrence up to 25%. Patient is high risk with immunosuppression and his age. He has at least two risk factors, and I would recommend IV Zinplava after discharge from the hospital to prevent recurrence at a dose of 800 mg IV times one dose at the infusion unit. As far as his thrombocytopenia is concerned, this is new and needs further evaluation, possibly heparin-induced thrombocytopenia. That will be left to the primary care team to work up. Also suggest adding HIV testing. The patient will be on dialysis.
[2021-05-01] MEDS: FINASTERIDE 5 MG TAB PO SCH (12:47)
[2021-05-01] MEDS: PANTOPRAZOLE 40MG VIAL (C9113 PER 1) IV SCH (12:47)
[2021-05-01] MEDS: FIDAXOMICIN 200 MG TAB (DIFICID) PO SCH ×2 (12:47→20:36)
[2021-05-01] MEDS: TAMSULOSIN 0.4 MG CAP PO SCH (12:52)
[2021-05-01] MEDS: SLF 3 ML SYR IV SCH ×2 (18:48→20:36)
[2021-05-01 22:00] VITALS: BP 101/55
[2021-05-01 23:35] VITALS: BP 123/59
--- NOTE | 2021-05-01 23:37 | IPN ---
NEPHROLOGY PROGRESS NOTE DATE: 05/01/2021 SUBJECTIVE: The patient was seen and examined at the bedside today morning. He is afebrile, hemodynamically stable. He was getting hemodialysis done when I saw him. He is tolerating the hemodialysis procedure well. OBJECTIVE: VITAL SIGNS: Temperature is 97.3 degrees Fahrenheit, blood pressure 131/68, pulse rate 54, respiratory rate of 18, saturating 92% on room air. INTAKE AND OUTPUT: Urine output recorded as only 400 mL. Ultrafiltration with hemodialysis was 500 mL yesterday. Weight in the bed scale is 78 kg. PHYSICAL EXAMINATION: GENERAL APPEARANCE: The patient is awake, alert, oriented x3, laying in bed in no apparent distress. HEAD AND NECK: Extraocular muscles intact. Pupils are equally round and reactive to light. Neck is supple. He has a right IJ tunneled hemodialysis catheter. There is a slight oozing of blood from the catheter site. CARDIOVASCULAR: S1, S2, regular rate. EXTREMITIES: No edema of the bilateral lower extremities. RESPIRATORY: Chest is clear to auscultation bilaterally. Bilaterally currently no rales or rhonchi. ABDOMEN: Soft, positive bowel sounds, nontender, no organomegaly. MUSCULOSKELETAL: No clubbing, no cyanosis. Pulses are 2+. RECORDING STUDIO SET UP WORKER: No focal deficits. Power is 5/5 in all extremities. LAB REVIEW: CBC showed a WBC count of 10.8, hemoglobin 9.6, platelet count 46. BMP showed sodium of 143, potassium 4.2, chloride 110, bicarbonate 20, BUN 74, creatinine is 5.1. Calcium 7.2. CURRENT INPATIENT MEDICATIONS: The patient's medications were all reviewed by myself. There is no significant change in the medications today as compared with yesterday. ASSESSMENT AND PLAN: 1. Acute renal failure - The patient was started on dialysis yesterday and second session of dialysis is being done today. Clinically he is feeling much better. 2. Anemia in renal failure - hemoglobin level is 9.6 which is stable. He is getting Venofer with dialysis. If it stays low, then he will be started on Aranesp as well. 3. C-diff colitis - The patient is on Dificid. Diarrhea is significantly better. 4. Benign prostatic hypertrophy with lower urinary tract symptoms - continue Flomax and Finasteride. Castillo is being removed. 5. Ig nephropathy with acute interstitial nephritis - The patient is currently on IV Solu-Medrol. Continue current dose at this time. 6. Metabolic acidosis - The patient's bicarbonate level is getting better with hemodialysis.
[2021-05-01] MEDS: ACETAMINOPHEN TAB 650MG DOSE (2X325MG) PO PRN (23:42)
[2021-05-02] MEDS ORDERED: PERCOCET 5MG/325MG TAB PO ONE (01:45)
[2021-05-02] MEDS: methylPREDNISolone 40MG 1ML VIAL IV SCH ×2 (05:57→17:50)
[2021-05-02] MEDS: LEVOTHYROXINE 88MCG TABLET (0.088 MG) PO SCH (05:58)
[2021-05-02] MEDS: SLF 3 ML SYR IV SCH ×3 (05:58→20:52)
[2021-05-02 06:00] VITALS: BP 123/60
[2021-05-02] MEDS: METOPROLOL TART 25 MG TABLET PO SCH ×3 (06:00→17:50)
[2021-05-02] MEDS: FINASTERIDE 5 MG TAB PO SCH (07:12)
[2021-05-02] MEDS: FIDAXOMICIN 200 MG TAB (DIFICID) PO SCH ×2 (07:12→20:51)
[2021-05-02] MEDS: TAMSULOSIN 0.4 MG CAP PO SCH (07:12)
[2021-05-02 07:25] LABS: BASO % 0.1 % (0.0-1.0); EOS % 0.1 % (0.0-3.0); HEMATOCRIT 28.9 % (42.0-52.0); HEMOGLOBIN 9.5 g/dl (13.5-17.5); LYMPH # 0.3 10^3/uL (1.5-5.0); LYMPH % 2.6 % (24.0-44.0); MEAN CORPUSCULAR HEMOGLOBIN 31.1 pg (27.0-33.0); MEAN CORPUSCULAR HGB CONC 32.9 g/dl (32.0-36.5); MEAN CORPUSCULAR VOLUME 94.8 fl (80.0-96.0); MONO # 0.4 10^3/uL (0.0-0.8); MONO % 4.5 % (2.0-8.0); NEUTROPHILS # 9.1 10^3/uL (1.5-8.5); NEUTROPHILS % 92.1 % (36.0-66.0); RED BLOOD COUNT 3.05 10^6/uL (4.30-6.10); WHITE BLOOD COUNT 9.9 10^3/uL (4.0-10.0)
[2021-05-02 07:28] LABS: PLATELET COUNT, AUTOMATED 51 10^3/uL (150-450)
[2021-05-02] MEDS: HumaLOG INSULIN (NovoLOG) PER UNIT SC SCH ×4 (07:30→20:08)
[2021-05-02 07:48] LABS: CREATININE FOR GFR 4.07 MG/DL (0.70-1.30)
[2021-05-02 07:49] LABS: CALCIUM LEVEL 8.1 MG/DL (8.8-10.2); GLOMERULAR FILTRATION RATE 15.3 (>42); POTASSIUM SERUM 4.2 MEQ/L (3.5-5.1)
--- NOTE | 2021-05-02 10:38 | IPNPDOC ---
Date Seen The patient was seen on 05/02/21. Progress Note SUBJECTIVE: This is hospital day 5 for this patient. The patient reports that he is feeling better today. Patient had dialysis yesterday and tolerated it well. The patient does not report any focal weakness at this time. He reports good appetite without nausea, vomiting or constipation. This is day #2 of a full day of fidaxomicin (on 04/30/21, Pt received Dificid at 21:36). Patient does not rep ort any disturbances during the night. There was no oozing from the dialysis site today. The patient denies any neck pain at this time. OBJECTIVE PHYSICAL EXAMINATION: VITAL SIGNS: Please see below. GENERAL: Patient is lying in bed, upright, in no acute distress, alert and cooperative on exam HEENT: Normocephalic, atraumatic, no conjunctival pallor, conjunctiva and lids normal CARDIOVASCULAR: Systolic ejection murmur present 3/6, irregularly irregular rhythm. RESPIRATORY: Clear to auscultation bilaterally. ABDOMINAL: Soft, nondistended, nontender, bowel sounds present. EXTREMITIES:. No edema, cyanosis, pedal pulses +2 bilaterally. NEUROLOGICAL: Good tone with good range of motion of all extremities PSYCHOLOGICAL: Alert, cooperative, oriented 4. LABORATORY DATA, IMAGING STUDIES, MICROBIOLOGY: Please see below. Echocardiogram: 04/28/2021 1. Study is of fair technical quality, patient is in atrial flutter with controlled rate. 2. Normal LV size with mild LVH, low normal LV systolic function with estimated EF around 50% to 55%. 3. Dilated hypokinetic right ventricle. 4. Prominent aortic sclerosis resulting in approximately moderate aortic stenosis (mean gradient 20 mmHg) and mild aortic insufficiency. 5. Likely status post mitral valve annuloplasty resulting in mild mitral stenosis (mean gradient 5 mmHg). 6. Very high central venous pressure and moderately severe pulmonary hypertension. 7. At least moderate tricuspid insufficiency. 8. Dilated pulmonary artery. DVT prophylaxis ordered: Heparin drip held due to thrombocytopenia, start TEDS and sequentials. ASSESSMENT AND PLAN: Patient is a 75-year-old male with an extensive cardiac history who presented with general malaise and resultant collapse at home leading to patient being down on the ground for an extensive period of time (7+ hours). #Generalized weakness and subsequent fall. Patient's generalized malaise is likely secondary to severe dehydration due to C. diff colitis Patient did not have head trauma and there was no loss of consciousness. Patient does not have any neurological symptoms. -Generally improving, downgraded to Med/Surg. #Left rib fracture Continue to monitor for respiratory exacerbations. Patient is tolerating pain well at this time without pain medication Consider pain medication, if pt complains of intolerable, or unmanageable pain. #Rhabdomyolysis Continue to trend CK levels -Has decreased by half, at 481 on 04/30/2021, (843 on admission). continue IV hydration per nephrology #C. difficile colitis Abdominal exam, likely secondary to C. difficile infection. White count has decreased from 15 04/29/2021 to 10.8 today, 05/01/2021 Discontinued vancomycin on 09/09/2021 Continue Dificid 200 mg twice a day. -ID consulted, and patient service team appreciates infectious disease specialist input. -ID suggests that upon discharge from hospital, patient receive IV Zinplava 800mg at the infusion unit x 1 dose to prevent recurrence rate. #CHARANJIT on CKD. Patient's creatinine level decreased after dialysis yesterday. Patient received hemodialysis yesterday with 1500 mL being taken off, patient tolerated well. Patient's dialysis catheter site no longer oozing. Inpatient service team appreciates nephrology input. -May discontinue jacinto catheter per nephrology recommendations. Continue maintenance IVF per nephrology orders. #IgA nephropathy -Patient is receiving IV Solu-Medrol at this time due to C. difficile, per nephrology. -Nephrology is managing, inpatient service appreciates nephrology input #Thrombocytopenia likely secondary to cirrhosis. Patient's platelets on admission were 64,000. However, after heparin drip admi nistration be decreased further, today down to 44,000. Heparin induced thrombocytopenia is being considered as an etiology HIT antibodies pending. EDTA free platelet levels also reflect thrombocytopenia. -HIV testing ordered, per ID recommendations. -continue with TEDS and sequentials for DVT prophylaxis at this time. #Atrial flutter with RVR. Patient presented with atrial flutter on admission. This was likely due to severe dehydration. Patient is currently in normal sinus rhythm. -Patient continues to have episodes of tachycardia on telemetry, but this is associated with movement from the bed to the bedside chair. Dr. Olivares was consulted and he had no recommendations at this time. #Hypocalcemia Patient has hypoalbuminemia and with correction admitting calcium level was 7.2, borderline low-normal, but patient also had hypoalbuminemia on admission, this is likely secondary to patient's hepatic pathology. Patient has C. difficile colitis, which may be interfering with patient's absorption of nutrients. Continue to monitor calcium levels daily. #Hyperkalemia. Patient's potassium level on admission was 5.4 Today's level is 4.2 and stable from yesterday, without kayexalate administration. DISPOSITION: Due to patient's kidney disease, nephrology management is still req uired. Continue the Fidaxomicin administration and ID consultation. VS, I&O, 24H, Fishbone Vital Signs/I&O Vital Signs Date Time Temp Pulse Resp B/P (MAP) Pulse Ox O2 Delivery O2 Flow Rate FiO2 05/02/21 06:00 98.6 68 18 123/60 (81) 96 Room Air 04/30/21 11:25 2.0 I&O- Last 24 Hours up to 6 AM 05/02/21 05:59 Intake Total 320 ml Output Total 1900 ml Balance -1580 ml Laboratory Data 24H LABS Laboratory Tests 2 05/01/21 12:46: Bedside Glucose (Misc Panel) 181H 05/01/21 17:59: Bedside Glucose (Misc Panel) 94 05/01/21 20:28: Bedside Glucose (Misc Panel) 185H 05/02/21 06:34: Immature Granulocyte % (Auto) 0.6, Neutrophils (%) (Auto) 92.1H, Lymphocytes (%) (Auto) 2.6L, Monocytes (%) (Auto) 4.5, Eosinophils (%) (Auto) 0.1, Basophils (%) (Auto) 0.1, Neutrophils # (Auto) 9.1H, Lymphocytes # (Auto) 0.3L, Monocytes # (Auto) 0.4, Eosinophils # (Auto) 0.0, Basophils # (Auto) 0.0, Nucleated Red Blood Cells % (auto) 0.0, Immature Platelet Fraction 6.7, Anion Gap 9, Glomerular Filtration Rate 15.3L, Calcium Level 8.1L CBC/BMP Laboratory Tests 05/02/21 06:34 Microbiology Microbiology 04/28/21 Gastrointestinal Tract Panel (PCR) - Final, Complete Clostridium Difficile A/B 04/28/21 Blood Culture - Preliminary, Resulted No Growth after 72 hours. All specime... 04/28/21 Blood Culture - Preliminary, Resulted No Growth after 72 hours. All specime... 04/28/21 Stool Occult Blood (JACKI) - Final, Complete GME ATTESTATION GME ATTESTATION My faculty preceptor for this patient encounter was physically present during the encounter and was fully available. All aspects of the patient interview, examination, medical decision making process, and medical care plan development were reviewed and approved by the faculty preceptor. The faculty preceptor is aware and concurs with the plan as stated in the body of this note and will attest to such by his/her cosignature. ATTENDING NOTE Attending Attestation: Patient independently seen and examined. I have discussed in detail with the resident the findings and plan of treatment as documented by the resident. I a gree with their findings and treatment plan. I will continue to follow the patient during this hospital stay. Fredi Hobson DO May 02, 2021 10:38 ARTHUR SMITH MD May 03, 2021 06:48
[2021-05-02 14:00] VITALS: BP 123/60
[2021-05-02] MEDS: PANTOPRAZOLE 40MG VIAL (C9113 PER 1) IV SCH (14:59)
--- NOTE | 2021-05-02 18:36 | IPN ---
NEPHROLOGY PROGRESS NOTE DATE: 05/02/2021 SUBJECTIVE: The patient was seen and examined at the bedside today morning. He is afebrile, hemodynamically stable. His diarrhea has improved now. He was dialyzed yesterday. He tolerated the hemodialysis procedure well. He continues to be oliguric at this time. OBJECTIVE: VITAL SIGNS: Temperature is 97.2 degrees Fahrenheit, blood pressure 123/60, pulse is 71, respiratory rate of 16, saturating 98% on room air. INTAKE AND OUTPUT: Urine output recorded as 200 mL. Ultrafiltration with hemodialysis was 1.5 liters. Weight in the bed scale is 78 kg yesterday. PHYSICAL EXAMINATION: GENERAL APPEARANCE: The patient is awake, alert, oriented x3, laying in bed in no apparent distress. HEAD AND NECK: Extraocular muscles intact. Pupils are equally round and reactive to light. Mucous membranes are moist. Neck is supple. He has a right IJ tunneled hemodialysis catheter. CARDIOVASCULAR: S1, S2, regular rate. EXTREMITIES: No edema of the bilateral lower extremities. RESPIRATORY: Chest is clear to auscultation bilaterally. Bilaterally currently no rales or rhonchi. ABDOMEN: Soft, positive bowel sounds, nontender, no organomegaly. MUSCULOSKELETAL: No clubbing, no cyanosis. Pulses are 2+. 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 Power is 5/5 in all extremities. LAB REVIEW: CBC showed a WBC count of 9.9, hemoglobin 9.5, platelet count 51. BMP showed sodium of 142, potassium 4.2, chloride 109, bicarbonate 24, BUN 56, creatinine is 4. Calcium is 8.1. CPK is 150. CURRENT INPATIENT MEDICATIONS: The patient's medications were all reviewed by myself. He continues to be on Dificid. He continues to be on Solu-Medrol 15 mg IV q. 12 hourly. There is no significant change in the medications. ASSESSMENT AND PLAN: 1. Acute oliguric renal failure it is secondary to acute kidney injury on top of Ig A nephropathy. The patient is dialysis dependent. One session of dialysis was done yesterday. Next hemodialysis will be done on Tuesday. 2. Anemia in renal failure - continue Aranesp and Venofer. Hemoglobin level is stable and improving. 3. IgA nephropathy - The patient is getting IV Solu-Medrol at this time. He was clinically doing very well as an outpatient until he presented to the hospital with acute kidney injury associated with C-diff. 4. C-diff colitis - The patient is currently on Dificid. Diarrhea is improved now. 5. Metabolic acidosis it has resolved with dialysis now. MTDD
[2021-05-02] MEDS: SIMVASTATIN 40 MG TAB PO SCH (20:51)
[2021-05-02] MEDS: PERCOCET 5MG/325MG TAB PO PRN (20:52)
[2021-05-02 22:00] VITALS: BP 126/60
[2021-05-03 06:00] VITALS: BP 143/68
[2021-05-03] MEDS: METOPROLOL TART 25 MG TABLET PO SCH ×4 (06:32→18:00)
[2021-05-03] MEDS: SLF 3 ML SYR IV SCH ×3 (06:32→20:44)
[2021-05-03] MEDS: methylPREDNISolone 40MG 1ML VIAL IV SCH ×2 (06:32→18:01)
[2021-05-03] MEDS: LEVOTHYROXINE 88MCG TABLET (0.088 MG) PO SCH (06:32)
[2021-05-03 06:37] LABS: BASO % 0.1 % (0.0-1.0); EOS % 0.1 % (0.0-3.0); HEMATOCRIT 28.4 % (42.0-52.0); HEMOGLOBIN 9.5 g/dl (13.5-17.5); LYMPH # 0.2 10^3/uL (1.5-5.0); LYMPH % 2.2 % (24.0-44.0); MEAN CORPUSCULAR HEMOGLOBIN 31.5 pg (27.0-33.0); MEAN CORPUSCULAR HGB CONC 33.5 g/dl (32.0-36.5); MONO # 0.5 10^3/uL (0.0-0.8); MONO % 5.6 % (2.0-8.0); NEUTROPHILS # 8.7 10^3/uL (1.5-8.5); RED BLOOD COUNT 3.02 10^6/uL (4.30-6.10); WHITE BLOOD COUNT 9.6 10^3/uL (4.0-10.0)
[2021-05-03] MEDS: FINASTERIDE 5 MG TAB PO SCH (06:37)
[2021-05-03] MEDS: TAMSULOSIN 0.4 MG CAP PO SCH (06:37)
[2021-05-03] MEDS: FIDAXOMICIN 200 MG TAB (DIFICID) PO SCH ×2 (06:37→20:44)
[2021-05-03 06:39] LABS: PLATELET COUNT, AUTOMATED 66 10^3/uL (150-450)
[2021-05-03 06:56] LABS: CALCIUM LEVEL 7.7 MG/DL (8.8-10.2); CREATININE FOR GFR 5.21 MG/DL (0.70-1.30); GLOMERULAR FILTRATION RATE 11.5 (>42); POTASSIUM SERUM 4.6 MEQ/L (3.5-5.1)
[2021-05-03] MEDS: HumaLOG INSULIN (NovoLOG) PER UNIT SC SCH ×4 (07:30→20:34)
[2021-05-03 14:00] VITALS: BP 131/66
[2021-05-03] MEDS: PANTOPRAZOLE 40MG VIAL (C9113 PER 1) IV SCH (14:00)
[2021-05-03 20:38] VITALS: BP 131/64
[2021-05-03] MEDS: SIMVASTATIN 40 MG TAB PO SCH (20:43)
[2021-05-03] MEDS: PERCOCET 5MG/325MG TAB PO PRN (20:44)
[2021-05-04] MEDS: ACETAMINOPHEN TAB 650MG DOSE (2X325MG) PO PRN ×2 (01:40→22:10)
[2021-05-04] MEDS: PERCOCET 5MG/325MG TAB PO PRN ×2 (04:00→23:43)
[2021-05-04] MEDS: METOPROLOL TART 25 MG TABLET PO SCH ×5 (04:01→23:44)
[2021-05-04 05:58] VITALS: BP 137/65
[2021-05-04] MEDS: TAMSULOSIN 0.4 MG CAP PO SCH (06:42)
[2021-05-04] MEDS: FINASTERIDE 5 MG TAB PO SCH (06:42)
[2021-05-04] MEDS: LEVOTHYROXINE 88MCG TABLET (0.088 MG) PO SCH (06:43)
[2021-05-04] MEDS: FIDAXOMICIN 200 MG TAB (DIFICID) PO SCH ×2 (06:43→20:49)
[2021-05-04] MEDS: SLF 3 ML SYR IV SCH ×3 (06:44→20:50)
[2021-05-04 06:56] LABS: BASO % 0.1 % (0.0-1.0); EOS % 0.3 % (0.0-3.0); HEMATOCRIT 28.6 % (42.0-52.0); HEMOGLOBIN 9.3 g/dl (13.5-17.5); LYMPH # 0.3 10^3/uL (1.5-5.0); LYMPH % 3.9 % (24.0-44.0); MEAN CORPUSCULAR HEMOGLOBIN 31.1 pg (27.0-33.0); MEAN CORPUSCULAR HGB CONC 32.5 g/dl (32.0-36.5); MEAN CORPUSCULAR VOLUME 95.7 fl (80.0-96.0); MONO # 0.6 10^3/uL (0.0-0.8); MONO % 7.2 % (2.0-8.0); NEUTROPHILS # 6.8 10^3/uL (1.5-8.5); NEUTROPHILS % 86.4 % (36.0-66.0); RED BLOOD COUNT 2.99 10^6/uL (4.30-6.10); WHITE BLOOD COUNT 7.9 10^3/uL (4.0-10.0)
[2021-05-04 07:01] LABS: PLATELET COUNT, AUTOMATED 67 10^3/uL (150-450)
[2021-05-04 07:05] LABS: CALCIUM LEVEL 7.8 MG/DL (8.8-10.2); CREATININE FOR GFR 6.09 MG/DL (0.70-1.30); GLOMERULAR FILTRATION RATE 9.6 (>42); POTASSIUM SERUM 5.4 MEQ/L (3.5-5.1)
[2021-05-04] MEDS: HumaLOG INSULIN (NovoLOG) PER UNIT SC SCH ×4 (07:30→21:00)
[2021-05-04] MEDS: predniSONE 10 MG TAB PO SCH (07:32)
--- NOTE | 2021-05-04 07:37 | IPNPDOC ---
Text Note Date of Service The patient was seen on 05/04/21. NOTE SUBJECTIVE: Patietn seen and examined at bedside. No acute overnight events reported. No new medical complaints this morning. OBJECTIVE PHYSICAL EXAMINATION: VITAL SIGNS: Please see below. GENERAL: NAD, lying comfortably in bed HEENT: NC/AT, EOMI CARDIOVASCULAR: +S1S2, systolic murmur, irregular RESPIRATORY: CTA B/L ABDOMINAL: Soft, NT, ND, +BS EXTREMITIES:. No edema PSYCHOLOGICAL: AAOx3 LABORATORY DATA, IMAGING STUDIES, MICROBIOLOGY: Please see below. A/P: 75M with extensive cardiac history who presented with general malaise and resultant collapse at home leading to patient being down on the ground for an extensive period of time (7+ hours), found to be in afib/RVR with left rib fractures, CDiff colitis, CHARANJIT requiring HD. #Generalized weakness and subsequent fall. Patient's generalized malaise is likely secondary to severe dehydration due to C. diff colitis Patient did not have head trauma and there was no loss of consciousness. Patient does not have any focal neurologic deficits. #Left rib fracture Continue to monitor for respiratory distress Patient is tolerating pain well at this time without pain medication Consider pain medication, if pt complains of intolerable, or unmanageable pain. #Rhabdomyolysis essentially resolved - off IV fluids #C. difficile colitis - improving Discontinued vancomycin on 09/09/2021 Continue Dificid 200 mg twice a day. - follow as per ID - assistance appreciated -ID suggests that upon discharge from hospital, patient receive IV Zinplava 800mg at the infusion unit x 1 dose to prevent recurrence rate. #CHARANJIT on CKD. - s/p HD Patient's dialysis catheter site no longer oozing. follow as per nephrology - assistance appreciated Inpatient service team appreciates nephrology input. #IgA nephropathy - s/p solumedrol - starting prednisone 05/04/21 -Nephrology is managing, inpatient service appreciates nephrology input #Thrombocytopenia likely secondary to cirrhosis. EDTA free platelet levels also reflect thrombocytopenia. -HIV testing ordered, per ID recommendations. -continue with TEDS and sequentials for DVT prophylaxis at this time. #Atrial flutter with RVR. Patient presented with atrial flutter on admission. This was likely due to severe dehydration. Patient is currently in normal sinus rhythm. -Patient continues to have episodes of tachycardia on telemetry, but this is associated with movement from the bed to the bedside chair. Dr. Olivares was consulted and he had no recommendations at this time. #Hypocalcemia Continue to monitor calcium levels daily. #Hyperkalemia. resolved DISPOSITION: Pending clinical improvement VS,Quirino, I+O VS, [place]bone, I+O Laboratory Tests 05/04/21 06:27 Vital Signs Date Time Temp Pulse Resp B/P (MAP) Pulse Ox O2 Delivery O2 Flow Rate FiO2 05/04/21 05:58 95.6 70 20 137/65 (89) 94 Room Air 04/30/21 11:25 2.0 I&O- Last 24 Hours up to 6 AM 05/04/21 06:00 Intake Total 960 ml Output Total 0 ml Balance 960 ml ARTHUR SMITH MD May 04, 2021 07:37
[2021-05-04] MEDS: IRON SUCROSE 100MG 5ML VIAL (J1756 PER 1MG) IV SCH (08:10)
--- NOTE | 2021-05-04 09:36 | IPNPDOC ---
Date Seen The patient was seen on 05/04/21. Progress Note SUBJECTIVE: This is hospital day 6 for this patient. The patient reports that he is feeling better today. Patient had dialysis yesterday and tolerated it well. The patient does not report any focal weakness at this time. He reports good appetite without nausea, vomiting or constipation. This is day #4 of a full day of fidaxomicin (on 04/30/21, Pt received Dificid at 21:36). Patient does not rep ort any disturbances during the night. There was no oozing from the dialysis site today. The patient denies any neck pain at this time. He is receiving hemodialysis today. OBJECTIVE PHYSICAL EXAMINATION: VITAL SIGNS: Please see below. GENERAL: Patient is lying in bed receiving hemodialysis, upright, in no acute distress, alert and cooperative on exam HEENT: Normocephalic, atraumatic, no conjunctival pallor, conjunctiva and lids normal CARDIOVASCULAR: Systolic ejection murmur present 3/6, irregularly irregular rhythm. RESPIRATORY: Clear to auscultation bilaterally. ABDOMINAL: Soft, nondistended, nontender, bowel sounds present. EXTREMITIES:. No edema, cyanosis, pedal pulses +2 bilaterally. NEUROLOGICAL: Good tone with good range of motion of all extremities PSYCHOLOGICAL: Alert, cooperative, oriented 4. LABORATORY DATA, IMAGING STUDIES, MICROBIOLOGY: Please see below. Echocardiogram: 04/28/2021 1. Study is of fair technical quality, patient is in atrial flutter with controlled rate. 2. Normal LV size with mild LVH, low normal LV systolic function with estimated EF around 50% to 55%. 3. Dilated hypokinetic right ventricle. 4. Prominent aortic sclerosis resulting in approximately moderate aortic stenosis (mean gradient 20 mmHg) and mild aortic insufficiency. 5. Likely status post mitral valve annuloplasty resulting in mild mitral stenosis (mean gradient 5 mmHg). 6. Very high central venous pressure and moderately severe pulmonary hypertension. 7. At least moderate tricuspid insufficiency. 8. Dilated pulmonary artery. DVT prophylaxis ordered: Heparin drip held due to thrombocytopenia, start TEDS and sequentials. ASSESSMENT AND PLAN: Patient is a 75-year-old male with an extensive cardiac history who presented with general malaise and resultant collapse at home leading to patient being down on the ground for an extensive period of time (7+ hours). #Generalized weakness and subsequent fall. Patient's generalized malaise is likely secondary to severe dehydration due to C. diff colitis Patient did not have head trauma and there was no loss of consciousness. Patient does not have any neurological symptoms. -Generally improving, downgraded to Med/Surg. #Left rib fracture Continue to monitor for respiratory exacerbations. Patient is tolerating pain well at this time without pain medication Consider pain medication, if pt complains of intolerable, or unmanageable pain. #Rhabdomyolysis CK level now within normal range, 150 on 05/04/2021, (843 on admission). continue IV hydration per nephrology. #C. difficile colitis Abdominal exam, likely secondary to C. difficile infection. White count has decreased from 15 04/29/2021 to 7.9 today, 05/04/2021 Discontinued vancomycin on 09/09/2021 Continue Dificid 200 mg twice a day. -ID consulted, and patient service team appreciates infectious disease specialist input. -ID suggests that upon discharge from hospital, patient receive IV Zinplava 800mg at the infusion unit x 1 dose to prevent recurrence rate. #CHARANJIT on CKD. Patient's creatinine level decreased after dialysis yesterday. Patient received hemodialysis yesterday with 1500 mL being taken off, patient tolerated well. Patient's dialysis catheter site no longer oozing. Inpatient service team appreciates nephrology input. -May discontinue jacinto catheter per nephrology recommendations. Continue maintenance IVF per nephrology orders. #IgA nephropathy -Patient's IV Solu-Medrol was stopped and oral prednisone 30 mg was started by Nephrology service. -Nephrology is managing, inpatient service appreciates nephrology input #Thrombocytopenia likely secondary to cirrhosis. Patient's platelets on admission were 64,000. After dipping down to 44,000 on 04/30/21, they have gradually increased to 67,000. HIT antibodies within normal limits, not likely caused by Heparin-induced thrombocytopenia -likely etiology is reactive thrombocytopenia 2/2 C. diff colitis EDTA free platelet levels also reflect thrombocytopenia. -HIV testing ordered, per ID recommendations. -continue with TEDS and sequentials for DVT prophylaxis at this time. #Atrial flutter with RVR. Patient presented with atrial flutter on admission. This was likely due to severe dehydration. Patient is currently in normal sinus rhythm. -Patient continues to have episodes of tachycardia on telemetry, but this is associated with movement from the bed to the bedside chair. Dr. Olivares was consulted and he had no recommendations at this time. #Hypocalcemia Patient has hypoalbuminemia and with correction admitting calcium level was 7.2, borderline low-normal, but patient also had hypoalbuminemia on admission, this is likely secondary to patient's hepatic pathology. Patient has C. difficile colitis, which may be interfering with patient's absorption of nutrients. Continue to monitor calcium levels daily. #Hyperkalemia. Patient's potassium level on admission was 5.4 Today's level is 4.2 and stable from yesterday, without kayexalate administration. DVT prophylaxis: continue TEDs and sequentials, consider starting Lovenox tomorrow as platelet count continues to improve. DISPOSITION: Due to patient's kidney disease, nephrology management is still required. Continue the Fidaxomicin administration and ID consultation. VS, I&O, [facility] Vital Signs/I&O Vital Signs Date Time Temp Pulse Resp B/P (MAP) Pulse Ox O2 Delivery O2 Flow Rate FiO2 05/04/21 05:58 95.6 70 20 137/65 (89) 94 Room Air 04/30/21 11:25 2.0 I&O- Last 24 Hours up to 6 AM 05/04/21 06:00 Intake Total 960 ml Output Total 0 ml Balance 960 ml Laboratory Data 24H LABS Laboratory Tests 2 05/04/21 06:27: Immature Granulocyte % (Auto) 2.1, Neutrophils (%) (Auto) 86.4H, Lymphocytes (%) (Auto) 3.9L, Monocytes (%) (Auto) 7.2, Eosinophils (%) (Auto) 0.3, Basophils (%) (Auto) 0.1, Neutrophils # (Auto) 6.8, Lymphocytes # (Auto) 0.3L, Monocytes # (Auto) 0.6, Eosinophils # (Auto) 0.0, Basophils # (Auto) 0.0, Nucleated Red Blood Cells % (auto) 0.0, Immature Platelet Fraction 5.2, Anion Gap 10, Glomerular Filtration Rate 9.6L, Calcium Level 7.8L CBC/BMP Laboratory Tests 05/04/21 06:27 Microbiology Microbiology 04/28/21 Gastrointestinal Tract Panel (PCR) - Final, Complete Clostridium Difficile A/B 04/28/21 Blood Culture - Final, Complete NO GROWTH AFTER 5 DAYS 04/28/21 Blood Culture - Final, Complete NO GROWTH AFTER 5 DAYS 04/28/21 Stool Occult Blood (JACKI) - Final, Complete GME ATTESTATION GME ATTESTATION My faculty preceptor for this patient encounter was physically present during the encounter and was fully available. All aspects of the patient interview, examination, medical decision making process, and medical care plan development were reviewed and approved by the faculty preceptor. The faculty preceptor is aware and concurs with the plan as stated in the body of this note and will attest to such by his/her cosignature. Fredi Hobson DO May 04, 2021 09:36
--- NOTE | 2021-05-04 10:30 | IPN ---
PROGRESS NOTE DATE: 05/03/2021 SUBJECTIVE: Patient was seen and examined at the bedside today morning. He is afebrile, hemodynamically stable. He continues to be oliguric. There is no significant improvement in the renal function. Creatinine is still rising after dialysis. His diarrhea has improved now. OBJECTIVE: VITAL SIGNS: Temperature is 97.5 degrees Fahrenheit, blood pressure is 131/66, pulse is 69, respiratory rate is 18, saturating 97% on room air. INTAKE AND OUTPUT: Urine output recorded as 200 ml yesterday. He is having some unrecorded voids. Weight on the bed scale is 72.4 kg. GENERAL: Patient is awake, alert and oriented x3, laying in bed in no apparent distress. HEAD AND NECK: Mucous membranes are moist. Neck is supple. He has a right IJ tunneled hemodialysis catheter. CARDIOVASCULAR: S1 and S2, irregular rate. No edema of the bilateral lower extremities. RESPIRATORY: Chest is clear to auscultation bilaterally. Bilateral equal air entry. No rales or rhonchi. ABDOMEN: Soft and distended. Positive bowel sounds. No organomegaly is noted. MUSCULOSKELETAL: No clubbing or cyanosis. Pulses are 2+. 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 Power is 5/5 in all extremities. LABORATORY DATA: CBC showed a WBC of 9.6, hemoglobin is 9.5, platelets are 66. BMP showed a sodium of 139, potassium 4.6, chloride 106, bicarbonate 21, BUN 76, creatinine is 5.2. Calcium is 7.7. CURRENT INPATIENT MEDICATIONS: The patient's medications were all reviewed by myself. His IV Solu-Medrol is being stopped, he is being started on prednisone 30 mg p.o. daily. No other significant change in the medications today. ASSESSMENT AND PLAN: 1. Acute renal failure. Patient's creatinine is still high. He is dialysis dependent at this time. Next hemodialysis will be done tomorrow morning. 2. IgA nephropathy. Patient was being treated with oral steroids as an outpatient. IV Solu-Medrol is being stopped and he has been started on oral prednisone 30 mg p.o. daily starting tomorrow. 3. C. Diff colitis, diarrhea is significantly better with Dificid. 4. Atrial fibrillation, heart rate is controlled with metoprolol, anticoagulation is on hold because he has thrombocytopenia, he was oozing from the catheter and he was having hematuria.
[2021-05-04 14:00] VITALS: BP 106/58
[2021-05-04] MEDS: PANTOPRAZOLE 40MG VIAL (C9113 PER 1) IV SCH (14:00)
--- NOTE | 2021-05-04 15:30 | IPN ---
NEPHROLOGY PROGRESS NOTE DATE: 05/04/2021 SUBJECTIVE: The patient is seen and examined in the Hemodialysis Unit receiving his treatment. His dialysis has been uneventful. He offers no complaints. His IV steroids were stopped yesterday and he was converted over to oral Prednisone. He is being set up for outpatient hemodialysis. The patient is receiving Heparin free dialysis. OBJECTIVE: VITAL SIGNS: Temperature 97.6, pulse 70, respiratory rate 16, blood pressure 137/65, saturating on room air. INTAKE AND OUTPUT: Intake yesterday was 1,020. Daily today only removed 800 mL. Weight in the bed scale today is not recorded. PHYSICAL EXAMINATION: GENERAL APPEARANCE: The patient is seen awake, alert, comfortable, receiving his dialysis treatment. HEENT: The extraocular muscles are intact. Tongue is moist. NECK: Supple. There is a tunneled hemodialysis catheter in the right chest wall with some blood underneath the dressing but the blood does not appear to be fresh. HEART: Irregular. There is no leg edema. RESPIRATORY: Clear breath sounds bilaterally. No crackles or rales. ABDOMEN: Soft and distended. There are bowel sounds. MUSCULOSKELETAL: No clubbing or cyanosis and no leg edema. NEUROLOGICAL: He answered most simple questions appropriately and was cooperative with physical exam but seemed to think he was being discharged today which I know is not the case, hence I question if he is a little confused. LABORATORY STUDIES: Labs today show HIV test negative. Hemoglobin 9.3, platelet count 67, white count 7.9. Sodium 137, potassium 5.4, bicarbonate 22, BUN 96, creatinine 6.0. CURRENT INPATIENT MEDICATIONS: The patient's medications were reviewed by myself. He continues on oral Dificid. I stopped his IV Solu-Medrol yesterday and switched him to Prednisone 30 mg p.o. daily. His remainder medications are unchanged as compared to yesterday. PROBLEMS: 1. Acute renal failure superimposed on chronic kidney disease stage 3b the patient's baseline creatinine is around 2.0. He is presently in acute renal failure requiring dialysis. He had soft blood pressures during his hemodialysis treatment today and we were only able to take off 800 mL of fluid. He is being arranged for outpatient hemodialysis care and I will continue to watch him closely for any signs of renal recovery. 2. IgA nephropathy - The patient was being treated with oral steroids as an outpatient. He did receive IV Solu-Medrol earlier during this admission but that has now been stopped and he is back on oral Prednisone 30 mg daily. 3. C-diff colitis - The patient reports that his stools are pasty to formed solid, and he denies any further liquid diarrhea. He continues on Dificid. 4. Atrial fibrillation - heart rate is controlled with Metoprolol. I note that he is not on anticoagulation at this time in view of significant thrombocytopenia. He also received Heparin free dialysis. 5. Acute thrombocytopenia I am not sure what has caused his drop in platelets. Prior to this admission he seemed to have a normal platelet level. Defer further workup to the Primary Team. We will continue with Heparin free dialysis while his platelets are so low. 6. Hyperkalemia he is receiving 2.0 mEq potassium bath with dialysis today.
[2021-05-04] MEDS: SIMVASTATIN 40 MG TAB PO SCH (20:49)
[2021-05-04 22:00] VITALS: BP 121/62
[2021-05-05] MEDS: LEVOTHYROXINE 88MCG TABLET (0.088 MG) PO SCH (05:53)
[2021-05-05] MEDS: SLF 3 ML SYR IV SCH ×3 (05:53→20:59)
[2021-05-05 06:00] VITALS: BP 120/62
[2021-05-05] MEDS: METOPROLOL TART 25 MG TABLET PO SCH ×3 (06:00→18:00)
[2021-05-05 06:29] LABS: BASO % 0.1 % (0.0-1.0); EOS # 0.3 10^3/uL (0.0-0.5); EOS % 4.6 % (0.0-3.0); HEMATOCRIT 28.7 % (42.0-52.0); HEMOGLOBIN 9.4 g/dl (13.5-17.5); LYMPH # 0.5 10^3/uL (1.5-5.0); LYMPH % 6.9 % (24.0-44.0); MEAN CORPUSCULAR HEMOGLOBIN 30.9 pg (27.0-33.0); MEAN CORPUSCULAR HGB CONC 32.8 g/dl (32.0-36.5); MEAN CORPUSCULAR VOLUME 94.4 fl (80.0-96.0); MONO # 0.3 10^3/uL (0.0-0.8); MONO % 4.1 % (2.0-8.0); NEUTROPHILS # 5.8 10^3/uL (1.5-8.5); NEUTROPHILS % 82.7 % (36.0-66.0); RED BLOOD COUNT 3.04 10^6/uL (4.30-6.10)
[2021-05-05 06:33] LABS: PLATELET COUNT, AUTOMATED 74 10^3/uL (150-450)
[2021-05-05 06:52] LABS: CALCIUM LEVEL 7.2 MG/DL (8.8-10.2); CREATININE FOR GFR 3.81 MG/DL (0.70-1.30); GLOMERULAR FILTRATION RATE 16.5 (>42); POTASSIUM SERUM 3.7 MEQ/L (3.5-5.1)
[2021-05-05] MEDS: HumaLOG INSULIN (NovoLOG) PER UNIT SC SCH ×4 (07:30→21:00)
[2021-05-05] MEDS: TAMSULOSIN 0.4 MG CAP PO SCH (09:53)
[2021-05-05] MEDS: FIDAXOMICIN 200 MG TAB (DIFICID) PO SCH ×2 (09:53→20:58)
[2021-05-05] MEDS: predniSONE 10 MG TAB PO SCH (09:53)
[2021-05-05] MEDS: FINASTERIDE 5 MG TAB PO SCH (09:53)
--- NOTE | 2021-05-05 12:59 | IPNPDOC ---
Date Seen The patient was seen on 05/05/21. Progress Note SUBJECTIVE: This is hospital day 8 for this patient. The patient reports that he is feeling better today. Patient had dialysis yesterday and tolerated it well. The patient does not report any focal weakness at this time. He reports good appetite without nausea, vomiting or constipation. This is day #5 of a full day of fidaxomicin (on 04/30/21, Pt received Dificid at 21:36). Patient does not rep ort any disturbances during the night. There was no oozing from the dialysis site today. The patient denies any neck pain at this time. He is receiving hemodialysis today. OBJECTIVE PHYSICAL EXAMINATION: VITAL SIGNS: Please see below. GENERAL: Patient is lying in bed receiving hemodialysis, upright, in no acute distress, alert and cooperative on exam HEENT: Normocephalic, atraumatic, no conjunctival pallor, conjunctiva and lids normal CARDIOVASCULAR: Systolic ejection murmur present 3/6, irregularly irregular rhythm. RESPIRATORY: Clear to auscultation bilaterally. ABDOMINAL: Soft, nondistended, nontender, bowel sounds present. EXTREMITIES:. No edema, cyanosis, pedal pulses +2 bilaterally. NEUROLOGICAL: Good tone with good range of motion of all extremities PSYCHOLOGICAL: Alert, cooperative, oriented 4. LABORATORY DATA, IMAGING STUDIES, MICROBIOLOGY: Please see below. Echocardiogram: 04/28/2021 1. Study is of fair technical quality, patient is in atrial flutter with controlled rate. 2. Normal LV size with mild LVH, low normal LV systolic function with estimated EF around 50% to 55%. 3. Dilated hypokinetic right ventricle. 4. Prominent aortic sclerosis resulting in approximately moderate aortic stenosis (mean gradient 20 mmHg) and mild aortic insufficiency. 5. Likely status post mitral valve annuloplasty resulting in mild mitral stenosis (mean gradient 5 mmHg). 6. Very high central venous pressure and moderately severe pulmonary hypertension. 7. At least moderate tricuspid insufficiency. 8. Dilated pulmonary artery. DVT prophylaxis ordered: Heparin drip held due to thrombocytopenia, start TEDS and sequentials. ASSESSMENT AND PLAN: Patient is a 75-year-old male with an extensive cardiac history who presented with general malaise and resultant collapse at home leading to patient being down on the ground for an extensive period of time (7+ hours). #Generalized weakness and subsequent fall. Patient's generalized malaise is likely secondary to severe dehydration due to C. diff colitis Patient did not have head trauma and there was no loss of consciousness. Patient does not have any neurological symptoms. -Generally improving, downgraded to Med/Surg. #Left rib fracture Continue to monitor for respiratory exacerbations. Patient is tolerating pain well at this time without pain medication Consider pain medication, if pt complains of intolerable, or unmanageable pain. - Will add incentive spirometry / acapella - Awaiting PT clearance; recommending rehab currently #Rhabdomyolysis CK level now within normal range, 150 on 05/04/2021, (843 on admission). continue IV hydration per nephrology. #C. difficile colitis Abdominal exam, likely secondary to C. difficile infection. White count has decreased from 15 04/29/2021 to 7.9 today, 05/04/2021 Discontinued vancomycin on 09/09/2021 Continue Dificid 200 mg twice a day. -ID consulted, and patient service team appreciates infectious disease specialist input. -ID suggests that upon discharge from hospital, patient receive IV Zinplava 800mg at the infusion unit x 1 dose to prevent recurrence rate. #CHARANJIT on CKD. Patient's creatinine level decreased after dialysis yesterday. Patient received hemodialysis yesterday with 800 mL being taken off, patient tolerated well. Patient's dialysis catheter site no longer oozing. Inpatient service team appreciates nephrology input. -May discontinue jacinto catheter per nephrology recommendations. Continue maintenance IVF per nephrology orders. #IgA nephropathy -Patient's IV Solu-Medrol was stopped and oral prednisone 30 mg was started by Nephrology service. -Nephrology is managing, inpatient service appreciates nephrology input #Thrombocytopenia likely secondary to cirrhosis. Patient's platelets on admission were 64,000. After dipping down to 44,000 on 04/30/21, they have gradually increased to 67,000. HIT antibodies within normal limits, not likely caused by Heparin-induced thrombocytopenia -likely etiology is reactive thrombocytopenia 2/2 C. diff colitis EDTA free platelet levels also reflect thrombocytopenia. -HIV screening was negative, order per ID recommendations. -continue with TEDS and sequentials for DVT prophylaxis at this time. #Atrial flutter with RVR. Patient presented with atrial flutter on admission. This was likely due to severe dehydration. Patient is currently in normal sinus rhythm. -Patient continues to have episodes of tachycardia on telemetry, but this is associated with movement from the bed to the bedside chair. Dr. Olivares was consulted and he had no recommendations at this time. #Hypocalcemia Patient has hypoalbuminemia and with correction admitting calcium level was 7.2, borderline low-normal, but patient also had hypoalbuminemia on admission, this is likely secondary to patient's hepatic pathology. Patient has C. difficile colitis, which may be interfering with patient's absorption of nutrients. Continue to monitor calcium levels daily. #Hyperkalemia. Patient's potassium level on admission was 5.4 Today's level is 3.7 and stable from yesterday, without kayexalate administration. DVT prophylaxis: continue TEDs and sequentials, consider starting Lovenox tomorrow as platelet count continues to improve. DISPOSITION: Due to patient's kidney disease, nephrology management is still required. Continue the Fidaxomicin administration and ID consultation. VS, I&O, 24H, [facility] Vital Signs/I&O Vital Signs Date Time Temp Pulse Resp B/P (MAP) Pulse Ox O2 Delivery O2 Flow Rate FiO2 05/05/21 12:00 81 118/61 05/05/21 06:00 97.4 18 97 Room Air 04/30/21 11:25 2.0 I&O- Last 24 Hours up to 6 AM 05/05/21 06:00 Intake Total 480 ml Output Total 800 ml Balance -320 ml Laboratory Data 24H LABS Laboratory Tests 2 05/04/21 21:23: Bedside Glucose (Misc Panel) 153H 05/05/21 06:07: Immature Granulocyte % (Auto) 1.6, Neutrophils (%) (Auto) 82.7H, Lymphocytes (%) (Auto) 6.9L, Monocytes (%) (Auto) 4.1, Eosinophils (%) (Auto) 4.6H, Basophils (%) (Auto) 0.1, Neutrophils # (Auto) 5.8, Lymphocytes # (Auto) 0.5L, Monocytes # (Auto) 0.3, Eosinophils # (Auto) 0.3, Basophils # (Auto) 0.0, Nucleated Red Blood Cells % (auto) 0.0, Anion Gap 7L, Glomerular Filtration Rate 16.5L, Calcium Level 7.2L 05/05/21 11:31: Bedside Glucose (Misc Panel) 119H CBC/BMP Laboratory Tests 05/05/21 06:07 Microbiology Microbiology 04/28/21 Gastrointestinal Tract Panel (PCR) - Final, Complete Clostridium Difficile A/B 04/28/21 Blood Culture - Final, Complete NO GROWTH AFTER 5 DAYS 04/28/21 Blood Culture - Final, Complete NO GROWTH AFTER 5 DAYS 04/28/21 Stool Occult Blood (JACKI) - Final, Complete GME ATTESTATION GME ATTESTATION My faculty preceptor for this patient encounter was physically present during the encounter and was fully available. All aspects of the patient interview, examination, medical decision making process, and medical care plan development were reviewed and approved by the faculty preceptor. The faculty preceptor is aware and concurs with the plan as stated in the body of this note and will attest to such by his/her cosignature. ATTENDING NOTE I, Jo-Ann Sainz, have independently examined this patient and performed my own physical exam, as well as reviewed the documentation and edited where necessary. I have discussed in detail with the resident / student the findings and plan of treatment as documented by the resident / student and edited their note. I agree with their findings and treatment plan and have edited their documentation. I will continue to follow the patient during this hospital stay. - Awaiting PFS to establish dialysis chair. Patient - Awaiting PT clearance - Will transition to ALC status Fredi Hobson DO May 05, 2021 12:59 JO-ANN SAINZ MD May 05, 2021 13:55
[2021-05-05 14:00] VITALS: BP 121/68
[2021-05-05] MEDS: PANTOPRAZOLE 40MG VIAL (C9113 PER 1) IV SCH (15:06)
[2021-05-05] MEDS: SIMVASTATIN 40 MG TAB PO SCH (20:58)
[2021-05-05] MEDS: ACETAMINOPHEN TAB 650MG DOSE (2X325MG) PO PRN (20:59)
[2021-05-05 22:02] LABS: PHOSPHORUS LEVEL 4.8 MG/DL (2.5-4.9)
[2021-05-05] MEDS: PERCOCET 5MG/325MG TAB PO PRN (22:15)
--- NOTE | 2021-05-05 22:20 | IPN ---
PROGRESS NOTE DATE: 05/05/2021 SUBJECTIVE: Mr. Gomez is seen and examined this morning at the bedside. He offers no complaints. He was dialyzed yesterday without any issues. He denies any ongoing diarrhea or any shortness of breath. PHYSICAL EXAMINATION: VITAL SIGNS: Temperature 97.4, pulse 80, respiratory rate 17, blood pressure 121/68, saturating 95% on room air. INTAKE/OUTPUT: Intake yesterday was 660. Dialysis yesterday removed 800 cc. Weight in the bed scale today is not recorded. GENERAL: Patient is seen sitting out of bed to the chair, elderly male, awake, alert, oriented x3, in no apparent distress. HEENT: Extraocular muscles are intact. Tongue is moist. Neck is supple. Jugular veins are not elevated. There is a tunneled hemodialysis catheter with a dressing in the right chest wall. HEART: Sounds are irregularly irregular. There is a systolic murmur. LUNGS: Clear to auscultation bilaterally. No crackle or rale. ABDOMEN: Soft and nontender. There are bowel sounds. EXTREMITIES: Show no edema or clubbing. NEUROLOGIC: He is awake, alert and oriented, and with no focal deficit. LABORATORY STUDIES: White count 7.0, hemoglobin 9.4, platelets 74,000. Sodium 140, potassium 3.7, bicarbonate 29, glucose 85. INPATIENT MEDICATIONS: Reviewed by myself and I note patient's Protonix has been changed to oral formation. The remainder of his medications are unchanged as compared to yesterday. PROBLEMS: 1. CHARANJIT superimposed on CKD stage 3B/borderline stage 4: The patient's baseline creatinine is around 2.0. He is presently in acute renal failure requiring dialysis. He is being set up for outpatient hemodialysis treatments, and we will continue to monitor for any signs of renal recovery. Thus far there are none. His acute kidney injury is in the setting of chronic IGA nephropathy with recent bout of C. difficile and dehydration. 2. IGA nephropathy: The patient was being treated with oral steroids as an outpatient. He did receive I.V. Solu-Medrol earlier during this admission, but that has been stopped and he is now back on oral prednisone; currently at a dose of 30 mg daily and we will continue the same and continue to monitor for signs of renal recovery. 3. C. difficile colitis: Patient denies any ongoing diarrhea. He continues on Dificid managed by the primary service. 4. Atrial fibrillation: He is rate controlled with Metoprolol. He is significantly thrombocytopenic. He is not on any anticoagulation. He is also receiving Heparin-free dialysis. 5. Anemia: The patient is receiving Venofer with dialysis and hemoglobin is stable in the 9's. I am going to hold off on starting Erythropoietin stimulating agent at present. 6. Hypertension: Blood pressures are well controlled on the current regimen. Systolic is 110's to 120's. No changes are being made. 7. Secondary hyperparathyroidism of renal origin: I note hypocalcemia, we will check a parathyroid hormone level.
[2021-05-06 06:00] VITALS: BP 142/70
[2021-05-06 06:41] LABS: BASO % 0.1 % (0.0-1.0); EOS # 0.1 10^3/uL (0.0-0.5); EOS % 2.1 % (0.0-3.0); HEMATOCRIT 29.3 % (42.0-52.0); HEMOGLOBIN 9.7 g/dl (13.5-17.5); LYMPH # 0.3 10^3/uL (1.5-5.0); LYMPH % 4.9 % (24.0-44.0); MEAN CORPUSCULAR HEMOGLOBIN 31.4 pg (27.0-33.0); MEAN CORPUSCULAR HGB CONC 33.1 g/dl (32.0-36.5); MEAN CORPUSCULAR VOLUME 94.8 fl (80.0-96.0); MONO # 0.3 10^3/uL (0.0-0.8); MONO % 4.6 % (2.0-8.0); NEUTROPHILS # 5.7 10^3/uL (1.5-8.5); NEUTROPHILS % 86.1 % (36.0-66.0); RED BLOOD COUNT 3.09 10^6/uL (4.30-6.10); WHITE BLOOD COUNT 6.7 10^3/uL (4.0-10.0)
[2021-05-06 06:47] LABS: PLATELET COUNT, AUTOMATED 82 10^3/uL (150-450)
[2021-05-06] MEDS: FINASTERIDE 5 MG TAB PO SCH (06:51)
[2021-05-06 06:52] VITALS: BP 142/70
[2021-05-06] MEDS: predniSONE 10 MG TAB PO SCH (06:52)
[2021-05-06] MEDS: METOPROLOL TART 25 MG TABLET PO SCH ×3 (06:52→12:00)
[2021-05-06] MEDS: LEVOTHYROXINE 88MCG TABLET (0.088 MG) PO SCH (06:52)
[2021-05-06] MEDS: SLF 3 ML SYR IV SCH ×2 (06:53→14:00)
[2021-05-06] MEDS: TAMSULOSIN 0.4 MG CAP PO SCH (06:53)
[2021-05-06] MEDS: FIDAXOMICIN 200 MG TAB (DIFICID) PO SCH ×2 (06:53→16:44)
[2021-05-06 07:03] LABS: CALCIUM LEVEL 7.4 MG/DL (8.8-10.2); CREATININE FOR GFR 5.01 MG/DL (0.70-1.30); POTASSIUM SERUM 4.4 MEQ/L (3.5-5.1)
[2021-05-06] MEDS: HumaLOG INSULIN (NovoLOG) PER UNIT SC SCH ×2 (07:30→12:00)
[2021-05-06] MEDS ORDERED: SODIUM CHLORIDE 0.9% 1000ML IV PRN (08:05)
[2021-05-06] MEDS ORDERED: PANTOPRAZOLE 40MG TAB (PROTONIX) PO SCH (09:00)
[2021-05-06] MEDS ORDERED: FIDA200TA PO ×3 (09:50→16:31)
--- NOTE | 2021-05-06 10:27 | DS.PDOC ---
Discharge Summary General Date of Admission Apr 27, 2021 at 22:52 Date of Discharge 05/06/2021 Attending Physician: JO-ANN HERRERA MD Discharge Summary PROCEDURES PERFORMED DURING STAY: Hemodialysis catheter placement on 04/30/2021 ADMITTING DIAGNOSES: Generalized weakness and dehydration CKD, stage IIIB. IgA nephropathy Atrial fibrillation. Anemia. Hypertension. Secondary hyperparathyroidism secondary to renal disease DISCHARGE DIAGNOSES: C. difficile colitis. CHARANJIT superimposed on CKD stage 3B/borderline stage 4 requiring hemodialysis. IgA nephropathy Atrial fibrillation. Anemia. Hypertension. Secondary hyperparathyroidism secondary to renal disease COMPLICATIONS/CHIEF COMPLAINT: Acute On Chronic Renal Failure,Elevated Troponin. HISTORY OF PRESENT ILLNESS: 75-year-old male with an extensive cardiac medical history including atrial fibrillation, CAD status post CABG, and aortic stenosis who presents after weakness and collapse at home. Patient tells me that was walking around his house at 9:30 in the morning when he started feeling progressively weaker and then fell to the ground collapsing onto his right side impacting his right chest and right elbow. He tells me he did not his head and did not lose consciousness at any point. He felt too weak to get back up and d rank himself on the floor where he rested for proximally 7 hours until his came home from work around 4 PM. EMS was called and patient was brought to the hospital. Patient tells me at no point did he experience any chest pain. However he does note that over the past 2 days he has become increasingly short of breath but only on exertion. Currently he denies shortness of breath. He denies some pain on the sides of impacted right elbow and right chest but no pain elsewhere. He attributes his weakness did not having a great appetite and not taking much fluids he tells me he drinks some water and mostly pop and occasionally some coffee. On review of systems he does endorse intermittent hematuria. He denies pain on urination. He denies any cough or sputum production. He denies abdominal pain. He denies lower extremity pain. He denies any changes to his vision. He denies feeling any fevers or chills. Denies any nausea or vomiting. In the emergency department patient was found to be severely dehydrated with atrial fibrillation with rapid ventricular response heart rate in the 140s he was given IV fluid boluses with improvement of his heart rate. Patient was found to have an elevated troponin of 1.04 on presentation which went up a few hours later to 1.15. CT abdomen/pelvis and CT chest were obtained in the ED reports are pending. HOSPITAL COURSE: Patient's home oral prednisone was switched to IV Solu-Medrol because Clostridium difficile was found in the patient's stool specimen. Patient was started on oral vancomycin for 2 days and since he did not have any benefit, and due to his immunocompromised state, infectious disease consultation was placed and patient received Dificid instead. Patient received a total of 6 days of Dificid in the hospital. Nephrology followed the patient throughout the hospital stay. Patient had acute kidney injury on chronic kidney disease stage IIIB/borderline stage IV, likely secondary to severe dehydration in the context of C. difficile colitis. Hemodialysis catheter was placed and patient received hemodialysis in the hospital 3 times which he was able to tolerate. Patient's rib x-ray during hospital stay showed left rib fracture. Patient did not need pain medication to tolerate this pain. Incentive spirometry and Acapella were used. Due to patient's fall, CPK levels were trended down and reached normal range of 150 on 05/04/2021 (down from admission 843). IV hydration including sodium bicarbonate. Patient received 3 L of IV fluids. Patient had thrombocytopenia likely secondary to cirrhosis. However, heparin was held during his stay due to thrombocytopenia decreasing to 44,000. On 04/30/2021. HIV screening was negative. TEDs and sequentials were used during the patient's entire stay for DVT prophylaxis. Patient's potassium level was 5.4 on admission. However, resolved spontaneously without Kayexalate administration, likely due to IV fluid administration and dialysis. DISCHARGE MEDICATIONS: Please see below. ALLERGIES: Please see below. PHYSICAL EXAMINATION ON DISCHARGE: VITAL SIGNS: Please see below. GENERAL: Patient is well-appearing. HEENT: Cephalic, atraumatic, no watery eye discharge, nursing, oropharyngeal mucosa moist. CARDIOVASCULAR EXAMINATION: Systolic ejection murmur auscultated 3 out of 6, irregularly irregular rhythm. RESPIRATORY: Clear to auscultation bilaterally. ABDOMINAL: Soft, nondistended, nontender, bowel sounds present. EXTREMITIES:. No edema, cyanosis, pedal pulses +2 bilaterally. NEUROLOGICAL: Good tone with good range of motion of all extremities PSYCHOLOGICAL: Alert, cooperative, oriented 4. LABORATORY DATA: Please see below. IMAGING: Abdomen/pelvis CT04/27/2021 1. Examination of the liver demonstrates a lobular surface contour, and enlargement of the left and caudate lobes, findings consistent with cirrhosis. 2. Mild diverticulosis coli without diverticulitis. Chest CT04/27/2021 1. Moderate paraseptal and centrilobular emphysematous changes most pronounced in the upper lung zones in posterior in both lung bases. 2. Thickened airways demonstrated at both lung bases may indicate reactive airway disease versus bronchitis. 3. There is fusiform dilatation of the ascending thoracic aorta which measures 3.8 cm. maximally. There is no dissection or saccular component. 4. Status post CABG. 5. Cardiomegaly. 6. There is enlargement of the central pulmonary arteries, findings which can be associated with pulmonary arterial hypertension which should be correlated clinically. Rib x-ray-09/09/2021 The frontal view of the chest shows cardiomegaly and patchy new left lower lobe opacities some with air bronchograms. There has been previous median ster notomy. There is diffuse scattered interstitial fibrotic change which appears stable. There is chronic right CP angle blunting. There is a double lumen central venous catheter in place the tip of which is in the superior vena cava/right atrial junction region Multiple views of the left ribs shows a single area of cortical irregularity involving the anterior 7th rib. This is seen on 4 of the five views. 1. Left rib fracture as described above. 2. New left lower lobe opacity seen on the frontal view of the chest possibly secondary to atelectasis from respiratory splinting due to left-sided pain. Certainly, pneumonia cannot be ruled out and needs to be clinically evaluated for. A concomitant left pleural effusion cannot be ruled out. 3. Other findings as described above. PROGNOSIS: Fair. ACTIVITY: As tolerated. DIET: 2 g sodium/consisting carbohydrate diet DISPOSITION: Discharge home. DISCHARGE INSTRUCTIONS: Please follow-up with PCP within the next 3-5 days. Please follow-up with nephrology within the next 3-5 days. Please follow-up with ID within the next 3-5 days. Please present to infusion center for IVs Zinplava administration, 800 mg 1 dose. Please continue Dificid oral administration 200mg BID for the next 4 days. Please present back to the ED if you have any worsening or new unexplained symptoms. DISCHARGE CONDITION: Stable. TIME SPENT ON DISCHARGE: 36 minutes. Vital Signs/I&Os Vital Signs Date Time Temp Pulse Resp B/P (MAP) Pulse Ox O2 Delivery O2 Flow Rate FiO2 05/06/21 06:52 75 142/70 05/06/21 06:00 98.7 18 97 Room Air 04/30/21 11:25 2.0 I&O- Last 24 Hours up to 6 AM 05/06/21 06:00 Intake Total 1080 ml Output Total 0 ml Balance 1080 ml Laboratory Data Labs 24H Laboratory Tests 2 05/05/21 11:31: Bedside Glucose (Misc Panel) 119H 05/05/21 16:29: Bedside Glucose (Misc Panel) 135H 05/05/21 20:14: Bedside Glucose (Misc Panel) 182H 05/06/21 05:58: Immature Granulocyte % (Auto) 2.2, Neutrophils (%) (Auto) 86.1H, Lymphocytes (%) (Auto) 4.9L, Monocytes (%) (Auto) 4.6, Eosinophils (%) (Auto) 2.1, Basophils (%) (Auto) 0.1, Neutrophils # (Auto) 5.7, Lymphocytes # (Auto) 0.3L, Monocytes # (Auto) 0.3, Eosinophils # (Auto) 0.1, Basophils # (Auto) 0.0, Nucleated Red Blood Cells % (auto) 0.0, Immature Platelet Fraction 4.9, Anion Gap 7L, Glomerular Filtration Rate 12.0L, Calcium Level 7.4L 05/06/21 06:04: Bedside Glucose (Misc Panel) 93 CBC/BMP Laboratory Tests 05/06/21 05:58 FSBS Laboratory Tests Test 05/05/21 11:31 05/05/21 16:29 05/05/21 20:14 05/06/21 06:04 Range/Units Bedside Glucose (Misc Panel) 119 135 182 93 83-110 MG/DL Microbiology Microbiology 04/28/21 Gastrointestinal Tract Panel (PCR) - Final, Complete Clostridium Difficile A/B 04/28/21 Blood Culture - Final, Complete NO GROWTH AFTER 5 DAYS 04/28/21 Blood Culture - Final, Complete NO GROWTH AFTER 5 DAYS 04/28/21 Stool Occult Blood (JACKI) - Final, Complete Discharge Medications Scheduled Amlodipine Besylate (Amlodipine Besylate) 5 Mg Tablet, 5 MG PO DAILY, (Reported) Fidaxomicin (Dificid) 200 Mg Tablet, 200 MG PO BID Finasteride (Finasteride) 5 Mg Tablet, 5 MG PO DAILY, (Reported) Gabapentin (Gabapentin) 300 Mg Cap, 300 MG PO QID, (Reported) Levothyroxine Sodium (Levoxyl) 88 Mcg Tab, 88 MCG PO DAILY, (Reported) Lovastatin (Lovastatin) 40 Mg Tab, 80 MG PO QHS, (Reported) Metoprolol Succinate (Toprol Xl) 100 Mg Tab.er.24h, 100 MG PO DAILY, (Reported) Prednisone (Prednisone) 20 Mg Tablet, 60 MG PO DAILY, (Reported) Sodium Zirconium Cyclosilicate (Lokelma) 10 Gm Powd.pack, 10 GM PO 3XW, (Reported) TUESDAY, TUESDAY AND TUESDAY: HAS NOT STARTED YET Tamsulosin HCl (Flomax) 0.4 Mg Capsule, 0.4 MG PO DAILY, (Reported) TAKES AROUND LUNCHTIME Allergies Coded Allergies: No Known Allergies (Verified , 08/01/18) GME ATTESTATION GME ATTESTATION My faculty preceptor for this patient encounter was physically present during the encounter and was fully available. All aspects of the patient interview, examination, medical decision making process, and medical care plan development were reviewed and approved by the faculty preceptor. The faculty preceptor is aware and concurs with the plan as stated in the body of this note and will attest to such by his/her cosignature. ATTENDING NOTE I, Jo-Ann Herrera, have independently examined this patient and performed my own physical exam, as well as reviewed the documentation and edited where necessary. I have discussed in detail with the resident / student the findings and plan of treatment as documented by the resident / student and edited their note. I agree with their findings and treatment plan and have edited their documentation. I will continue to follow the patient during this hospital stay. Time spent on discharge 35 minutes Fredi Hobson DO May 06, 2021 10:27 JO-ANN HERRERA MD May 06, 2021 11:18
[2021-05-06] MEDS: IRON SUCROSE 100MG 5ML VIAL (J1756 PER 1MG) IV SCH (12:52)
--- NOTE | 2021-05-06 17:08 | IPN ---
PROGRESS NOTE DATE: 05/06/2021 SUBJECTIVE: Mr. Gomez is seen and examined this morning at the bedside and again in the afternoon receiving his treatment. He denies any complaints. He is discharge pending after dialysis. He has been set up for dialysis as an outpatient on a Tuesday, , Tuesday schedule. He has no signs of renal recovery so far, but we will continue to monitor for the same in the outpatient unit. He denies any diarrhea, denies any shortness of breath, nausea, vomiting, or chest pain. He is looking forward to going home. Temperature 98.7, pulse 75, respiratory rate 18, blood pressure 142/70, saturating 97% on room air. Intake yesterday was 1 liter. Goal dos removal today will be 1 liter as tolerated. Weight was not recorded today. General: Patient is seen awake, alert, oriented, comfortable in no apparent distress. Extraocular muscles are intact. Tongue is moist. Dentition is poor. Neck is supple. There is a tunneled hemodialysis catheter in the right chest wall. Heart sounds are irregular. There is no leg edema. There is no dependent edema. Breath sounds are clear to auscultation bilaterally. Abdomen is soft, obese, and nontender. Neurologic: He is awake, alert, oriented times three. No focal deficits. Today's labs show sodium 140, potassium 4.4, bicarbonate 28, BUN 62, creatinine 5.0, PTH 389. Hemoglobin 9.7. Platelet has come up to 82. INPATIENT MEDICATIONS: Reviewed by myself, and no change are noted with the exception that the patient has been started on Protonix 40 mg by mouth daily. PROBLEMS: 1. Acute kidney injury superimposed on chronic kidney disease (CKD), stage IIIB, borderline stage IV. The patient's baseline creatinine is around 2.0. He is in acute renal failure in the setting of chronic IgA nephropathy with recent bout of Clostridium (C) difficile colitis and dehydration. He is requiring dialysis. There are no signs of renal recovery. He has outpatient hemodialysis now arranged on a Tuesday, , Tuesday schedule, and we will continue to monitor him in the outpatient setting for improving of renal function. 2. IgA nephropathy. The patient has been treated with oral steroids recently as an outpatient. He did receive intravenous (IV) Solu-Medrol earlier on this admission, but that was stopped, and he is now on prednisone 30 mg daily. He was started on proton pump inhibitor prophylaxis while on steroids, and he will followup with Dr. Hobson for further adjustment of his steroids and to continue to monitor for signs of renal recovery. 3. Clostridium (C) difficile colitis. He has symptomatically improved. He denies any diarrhea. He is supposed to have intravenous (IV) Zinplava set up as outpatient, and he continues to complete a course of Dificid. 4. Anemia related to chronic renal failure and iron deficiency. He is receiving Venofer with hemodialysis, and we will start him with erythropoiesis-stimulating agent as needed in the outpatient setting. Hemoglobin is stable in the 9's. 5. Hypertension. Blood pressures are well controlled. No changes are being made to the current regimen. He will continue on metoprolol and amlodipine at home.
== END 2021-05-06 16:45 | disposition home health service (06) | DRG 372 ==
LOC: M ED 17:04 → EEVIPCON 22:52 → M ED INP 22:52 → M PCU 04-28 04:10 → M MS5PR 05-01 17:46 → M PCU 05-01 17:46
PROVIDERS: ADMIT Family Medicine; ATTEND Internal Medicine
PROC: 0JH63XZ Insertion of Tunneled Vascular Access Device into Chest Subcutaneous Tissue and Fascia, Percutaneous Approach (ICD-10-PCS; 2021-04-30)
PROC: 5A1D70Z Performance of Urinary Filtration, Intermittent, Less than 6 Hours Per Day (ICD-10-PCS; 2021-04-30)
PROC: 02HV33Z Insertion of Infusion Device into Superior Vena Cava, Percutaneous Approach (ICD-10-PCS; principal; 2021-04-30 10:49)
DX: A04.72 Enterocolitis due to Clostridium difficile, not specified as recurrent (principal); N17.9 Acute kidney failure, unspecified; M62.82 Rhabdomyolysis; I48.20 Chronic atrial fibrillation, unspecified; E87.2 Acidosis; S22.32XA Fracture of one rib, left side, initial encounter for closed fracture; N25.81 Secondary hyperparathyroidism of renal origin; R53.1 Weakness; I25.10 Atherosclerotic heart disease of native coronary artery without angina pectoris; Z95.5 Presence of coronary angioplasty implant and graft; I35.0 Nonrheumatic aortic (valve) stenosis; I12.9 Hypertensive chronic kidney disease with stage 1 through stage 4 chronic kidney disease, or unspecified chronic kidney disease; M10.9 Gout, unspecified; E03.9 Hypothyroidism, unspecified; E11.9 Type 2 diabetes mellitus without complications; Z87.891 Personal history of nicotine dependence; E86.0 Dehydration; R77.8 Other specified abnormalities of plasma proteins; D72.829 Elevated white blood cell count, unspecified; E87.5 Hyperkalemia; E83.51 Hypocalcemia; D69.6 Thrombocytopenia, unspecified; N40.1 Benign prostatic hyperplasia with lower urinary tract symptoms; Z20.822 Contact with and (suspected) exposure to COVID-19; Z79.899 Other long term (current) drug therapy; N18.32 Chronic kidney disease, stage 3b; R19.7 Diarrhea, unspecified; Z91.19 Patient's noncompliance with other medical treatment and regimen; I27.29 Other secondary pulmonary hypertension; D63.1 Anemia in chronic kidney disease; W01.0XXA Fall on same level from slipping, tripping and stumbling without subsequent striking against object, initial encounter; Y92.009 Unspecified place in unspecified non-institutional (private) residence as the place of occurrence of the external cause; Z99.2 Dependence on renal dialysis; K74.60 Unspecified cirrhosis of liver

== ENCOUNTER 2021-05-07 14:36 | Inpatient (IN) | payer MEDICARE, OTHER ==
[~2021-05-07] VITALS: Ht 177.8 cm; Wt 68.3 kg
[~2021-05-07 14:36] MED LIST changes: +AMLO1TAB24 PO; +FIDA200TA PO; +LOKE10PA PO; +PRED20TA PO; +TOPR100T PO
[2021-05-07] MEDS ORDERED: NS 500 ML IV ONE (15:25)
--- NOTE | 2021-05-07 15:46 | REP ---
INDICATION: Altered Mental Status. COMPARISON: 04/30/2021. TECHNIQUE: Single portable AP view of the chest was performed. FINDINGS: There are moderate interstitial fibrotic changes bilaterally which appear stable. There is mild stable biapical pleural thickening. The heart and mediastinum are unchanged. Multiple sternal wires and mediastinal clips are present. Right central venous catheter is seen with the distal tip in the right atrium. IMPRESSION: Stable chronic changes without definite superimposed acute infiltrate. <Electronically signed by Ash Whittington > 05/07/21 [id number]
[2021-05-07 15:59] LABS: BASO % 0.3 % (0.0-1.0); EOS # 0.3 10^3/uL (0.0-0.5); EOS % 3.6 % (0.0-3.0); HEMATOCRIT 34.2 % (42.0-52.0); LYMPH # 0.4 10^3/uL (1.5-5.0); LYMPH % 5.7 % (24.0-44.0); MEAN CORPUSCULAR HEMOGLOBIN 31.5 pg (27.0-33.0); MEAN CORPUSCULAR HGB CONC 32.2 g/dl (32.0-36.5); MONO # 0.4 10^3/uL (0.0-0.8); MONO % 5.1 % (2.0-8.0); NEUTROPHILS # 5.7 10^3/uL (1.5-8.5); NEUTROPHILS % 82.7 % (36.0-66.0); PLATELET COUNT, AUTOMATED 108 10^3/uL (150-450); RED BLOOD COUNT 3.49 10^6/uL (4.30-6.10); WHITE BLOOD COUNT 6.9 10^3/uL (4.0-10.0)
[2021-05-07 16:28] LABS: RSV AMPLIFICATION NEGATIVE (NEGATIVE)
[2021-05-07 16:38] LABS: ALBUMIN 2.4 GM/DL (3.2-5.2); BILIRUBIN,DIRECT 0.2 MG/DL (0.0-0.2); BILIRUBIN,TOTAL 0.5 MG/DL (0.2-1.0); CALCIUM LEVEL 7.4 MG/DL (8.8-10.2); CREATININE FOR GFR 4.06 MG/DL (0.70-1.30); GLOMERULAR FILTRATION RATE 15.3 (>42); POTASSIUM SERUM 3.9 MEQ/L (3.5-5.1); THYROID STIMULATING HORMONE 0.505 uIU/ML (0.358-3.740); TOTAL PROTEIN 5.3 GM/DL (6.4-8.2)
[2021-05-07] MEDS ORDERED: HEPARIN SOD (PORCINE) 5000UNITS/ML 1ML VIAL/SYRINGE SC SCH (17:25)
[2021-05-07] MEDS ORDERED: MOM 30ML SUSPENSION UDC PO PRN (17:25)
--- NOTE | 2021-05-07 17:47 | HPEPDOC ---
[facility] Medical History & Physical Date of Admission May 07, 2021 Date of Service: May 07, 2021 History and Physical Chief complaint: Presented to the hospital with weakness History of present illness: Patient is a 75-year-old male who presented to the emergency room with weakness. Patient was recently at [facility] from 04/27 to 05/06. Patient had initially presented to the hospital because of weakness falls secondary to dehydration from diarrhea. Patient was noted to have C. difficile colitis and worsening renal failure. During the hospital course patient was found to have C. difficile colitis. He failed vancomycin and was treated with Dificid; that he is currently still receiving therapy for. He was also started on dialysis for worsening CKD. Patient had worked with PT and OT and was cleared for DC home with services. While at home today patient had noted that he was so weak he couldn't get out of a chair. He denied any falls or LOC. He was brought to the ER for further evaluation. Patient reports that other than the weakness he feels relatively fine. Denies any YAÑEZ, N/V, Abdominal pain, constipation. Reports he makes very little urine. Denies any CP, SOB or palpitations. Reports a poor appetite. Patient will be admitted for physical therapy / occupational therapy and likely rehab / long-term care placement. Past Medical History: CAD s/p CABG A fib (off of anticoagulation with Xarelto) Mitral valve annuloplasty Aortic stenosis HTN C. 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 Review of Systems: 10 point review of systems complete, all negative otherwise stated in HPI Physical exam: - Vitals: BP [111/61], HR [76], RR [16], Sat [95%RA], Temp [97.3F] - General: Lying in bed, No acute distress, Speaking in full sentences, AAOx3 - HEENT: NC, AT, PERRLA - CVS: RRR, +S1S2, R IJ PermCath in place - Lungs: Fair air entry bilaterally, No appreciable wheezing / rales / rhonchi - Abdomen: Soft, Non-distended, Non-tender - Extremities: Trace LE edema bilaterally (R>L), No calf tenderness - Neuro: No focal motor or sensory deficit - Skin: No visible rashes Labs: See below Imaging: CXR 05/07: Stable chronic changes without definite superimposed acute infiltrate. EKG: See below Assessment and Plan: Weakness / Deconditioning - Patient has recently had a prolonged hospital stay - Initially physical therapy and occupational therapy for home with services - However given his new profound weakness will likely be transitioned to rehabil itation - Will get PT and OT on board - Will consult PFS for rehabilitation C. diff colitis - Patient was that his diarrhea has resolved - Will complete antibiotic therapy with Dificid (End date 05/10 PM) CAD s/p CABG - Denies chest pain, shortness breath, palpitations - c/w Metoprolol, Simvastatin - Will have outpatient follow up with PCP for evaluation of anti-platelet therapy A fib - c/w rate control with metoprolol - Patient has been taken off of anticoagulation with Xarelto in the past because of bleeding Mitral valve annuloplasty / Aortic stenosis HTN - BP well controlled; was hypotensive in the ER upon arrival; but currently is normotensive - Will c/w Amlodipine / Metoprolol with hold parameters DLP - c/w Simvastatin ESRD on HD via R IJ PermCath - IgA Nephropathy - Patient is scheduled for HD on Tuesday - Had been scheduled for outpatient HD on T// - Will consult Nephrology for HD - c/w Prednisone at home dose Secondary Hyperparathyroidism Anemia - Hg slightly higher than baseline - Will continue to trend Neuropathy - c/w Gabapentin; will reduce dose for now BPH - c/w Tamsulosin Hypothyroidism - c/w Levothyroxine DVT prophylaxis - Will start TEDs (re: Thrombocytopenia) Vital Signs Vital Signs Date Time Temp Pulse Resp B/P (MAP) Pulse Ox O2 Delivery O2 Flow Rate FiO2 05/07/21 16:30 76 111/61 (78) 95 Room Air 05/07/21 14:49 97.3 18 Laboratory Data Labs 24H Laboratory Tests 2 05/07/21 13:54: Coronavirus (COVID-19)(PCR) NEGATIVE, Influenza Type A (RT-PCR) NEGATIVE, Influenza Type B (RT-PCR) NEGATIVE, Respiratory Syncytial Virus (PCR) NEGATIVE 05/07/21 15:22: Immature Granulocyte % (Auto) 2.6, Neutrophils (%) (Auto) 82.7H, Lymphocytes (%) (Auto) 5.7L, Monocytes (%) (Auto) 5.1, Eosinophils (%) (Auto) 3.6H, Basophils (%) (Auto) 0.3, Neutrophils # (Auto) 5.7, Lymphocytes # (Auto) 0.4L, Monocytes # (Auto) 0.4, Eosinophils # (Auto) 0.3, Basophils # (Auto) 0.0, Nucleated Red Blood Cells % (auto) 0.0, Anion Gap 7L, Glomerular Filtration Rate 15.3L, Calcium Level 7.4L, Total Bilirubin 0.5, Direct Bilirubin 0.2, Aspartate Amino Transf (AST/SGOT) 70H, Alanine Aminotransferase (ALT/SGPT) 69, Alkaline Jeanette sphatase 84, Ammonia < 10, Total Protein 5.3L, Albumin 2.4L, Albumin/Globulin Ratio 0.8, Thyroid Stimulating Hormone (TSH) 0.505 05/07/21 15:51: POC Glucose (Misc Panel) 89, POC Sodium (Misc Panel) 140, POC Potassium (Misc Panel) 3.9, POC Chloride (Misc Panel) 100, POC Total CO2 (Misc Panel) 24.0, POC Blood Urea Nitrogen (Misc Panel 41H, POC Ionized Calcium (Misc Panel) 4.2L, POC Creatinine (Misc Panel) 4.4H, POC Hematocrit (Misc Panel) 33.0L 05/07/21 16:05: POC Troponin I (Misc) 0.10H CBC/BMP Laboratory Tests 05/07/21 15:22 Home Medications Scheduled Amlodipine Besylate (Amlodipine Besylate) 5 Mg Tablet, 5 MG PO DAILY Fidaxomicin (Dificid) 200 Mg Tablet, 200 MG PO BID . Finasteride (Finasteride) 5 Mg Tablet, 5 MG PO DAILY Gabapentin (Gabapentin) 300 Mg Cap, 300 MG PO QID Levothyroxine Sodium (Levoxyl) 88 Mcg Tab, 88 MCG PO DAILY Lovastatin (Lovastatin) 40 Mg Tab, 80 MG PO QHS Metoprolol Succinate (Toprol Xl) 100 Mg Tab.er.24h, 100 MG PO DAILY Prednisone (Prednisone) 20 Mg Tablet, 60 MG PO DAILY Sodium Zirconium Cyclosilicate (Lokelma) 10 Gm Powd.pack, 10 GM PO 3XW TUESDAY, TUESDAY AND TUESDAY: HAS NOT STARTED YET Tamsulosin HCl (Flomax) 0.4 Mg Capsule, 0.4 MG PO DAILY TAKES AROUND LUNCHTIME Allergies Coded Allergies: No Known Allergies (Verified , 08/01/18) NUZHAT HERRERA MD May 07, 2021 17:47
--- NOTE | 2021-05-07 20:06 | REP ---
INDICATION: RLE edema > LLE Edema COMPARISON: None. TECHNIQUE: Real time compression and duplex Doppler interrogation of the right lower extremity deep venous system is performed, including the left common femoral vein.Compression of the right peroneal and posterior tibial veins is performed. FINDINGS: The right common femoral, superficial femoral and popliteal veins are fully compressible with transducer pressure and demonstrate normal spontaneous and phasic flow, without evidence of deep venous thrombosis.The left common femoral vein demonstrates no thrombus.The visualized right peroneal and posterior tibial veins demonstrate no thrombus. IMPRESSION: No evidence of deep venous thrombosis of the right lower extremity femoral popliteal venous system.The visualized right peroneal and posterior tibial veins demonstrate no thrombus. <Electronically signed by Ash Whittington > 05/07/212001
[2021-05-07] MEDS ORDERED: GABAPENTIN 300 MG CAP PO SCH (21:00)
[2021-05-07] MEDS ORDERED: DOCUSATE SODIUM 100MG CAPSULE PO SCH (21:00)
[2021-05-07] MEDS ORDERED: SIMVASTATIN 40 MG TAB PO SCH (21:00)
[2021-05-07 21:30] VITALS: BP 99/59
--- NOTE | 2021-05-07 21:44 | ECGEPIP ---
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
[2021-05-07] MEDS: ACETAMINOPHEN TAB 650MG DOSE (2X325MG) PO PRN (22:58)
[2021-05-07] MEDS: GABAPENTIN 100 MG CAP PO SCH (22:59)
[2021-05-07] MEDS: FIDAXOMICIN 200 MG TAB (DIFICID) PO SCH (22:59)
[2021-05-08] MEDS: LEVOTHYROXINE 88MCG TABLET (0.088 MG) PO SCH (05:40)
[2021-05-08 06:00] VITALS: BP 109/59
[2021-05-08 06:25] LABS: BASO % 0.2 % (0.0-1.0); EOS # 0.2 10^3/uL (0.0-0.5); EOS % 3.5 % (0.0-3.0); HEMATOCRIT 29.1 % (42.0-52.0); HEMOGLOBIN 9.3 g/dl (13.5-17.5); LYMPH # 0.5 10^3/uL (1.5-5.0); LYMPH % 7.6 % (24.0-44.0); MEAN CORPUSCULAR HEMOGLOBIN 31.1 pg (27.0-33.0); MEAN CORPUSCULAR VOLUME 97.3 fl (80.0-96.0); MONO # 0.3 10^3/uL (0.0-0.8); MONO % 5.1 % (2.0-8.0); PLATELET COUNT, AUTOMATED 103 10^3/uL (150-450); RED BLOOD COUNT 2.99 10^6/uL (4.30-6.10); WHITE BLOOD COUNT 6.3 10^3/uL (4.0-10.0)
[2021-05-08 06:48] LABS: CALCIUM LEVEL 7.3 MG/DL (8.8-10.2); CREATININE FOR GFR 4.51 MG/DL (0.70-1.30); GLOMERULAR FILTRATION RATE 13.6 (>42); MAGNESIUM LEVEL 2.1 MG/DL (1.8-2.4); POTASSIUM SERUM 4.2 MEQ/L (3.5-5.1)
[2021-05-08] MEDS ORDERED: SODIUM CHLORIDE 0.9% 1000ML IV PRN (08:15)
[2021-05-08] MEDS: GABAPENTIN 100 MG CAP PO SCH ×2 (08:36→20:27)
[2021-05-08] MEDS: FIDAXOMICIN 200 MG TAB (DIFICID) PO SCH ×2 (08:36→20:27)
[2021-05-08] MEDS: TAMSULOSIN 0.4 MG CAP PO SCH (08:36)
[2021-05-08] MEDS: FINASTERIDE 5 MG TAB PO SCH (08:36)
[2021-05-08] MEDS: ATORVASTATIN 20 MG TAB PO SCH (08:36)
[2021-05-08] MEDS: METOPROLOL SUCC (TopROL XL) 100MG *XL* TAB PO SCH (08:37)
[2021-05-08] MEDS ORDERED: amLODIPine 5 MG TAB PO SCH (09:00)
[2021-05-08] MEDS ORDERED: predniSONE 20 MG TAB PO SCH (09:00)
--- NOTE | 2021-05-08 10:53 | IPNPDOC ---
Text Note Date of Service The patient was seen on 05/08/21. NOTE Subjective: Patient is a 75-year-old male who presented to the emergency room with weakness. Patient was recently at [facility] from 04/27 to 05/06. Patient had initially presented to the hospital because of weakness falls secondary to dehydration from diarrhea. Patient was noted to have C. difficile colitis and worsening renal failure. During the hospital course patient was found to have C. difficile colitis. He failed vancomycin and was treated with Dificid; that he is currently still receiving therapy for. He was also started on dialysis for worsening CKD. Patient had worked with PT and OT and was cleared for DC home with services. While at home today patient had noted that he was so weak he couldn't get out of a chair. He denied any falls or LOC. He was brought to the ER for further evaluation. Patient reports that other than the weakness he feels relatively fine. Denies any YAÑEZ, N/V, Abdominal pain, constipation. Reports he makes very little urine. Denies any CP, SOB or palpitations. Patient was admitted to the hospitalist service for PT and OT and likely rehab / long-term care placement. Patient was seen and examined at the bedside. Patient reports again that he feels relatively fine. Denies any nausea, vomiting, chest pain, shortness of breath, palpitations, abdominal pain. Overnight patient had difficulty with urination and required straight catheterization. Objective: Vitals (See below) General: Lying in bed, appears comfortable, AAOx3 HEENT: NC, AT CVS: +S1S2 Lungs: Fair air entry b/l, -w/r/r Abdomen: Soft, ND, NT Extremities: Trace lower extremity edema, - Calf tenderness Imaging: CXR 05/07: Stable chronic changes without definite superimposed acute infiltrate. Vascular US 05/07: No evidence of deep venous thrombosis of the right lower extremity femoral popliteal venous system.The visualized right peroneal and posterior tibial veins demonstrate no thrombus. Assessment and plan: Weakness / Deconditioning - Patient has recently had a prolonged hospital stay and had ultimately cleared PT / OT with home services - However upon arriving home couldn't get up out of a seat - c/w PT and OT - PFS on board for rehabilitation; rehab bed when available - Will transition to ALC status C. diff colitis - Diarrhea has improved - c/w Dificid (End date 05/10 PM) CAD s/p CABG - No chest pain, shortness breath, palpitations - c/w Metoprolol, Simvastatin - Will have outpatient follow up with PCP for evaluation of anti-platelet therapy A fib - c/w rate control with metoprolol - Patient has been taken off of anticoagulation with Xarelto in the past because of bleeding Mitral valve annuloplasty / Aortic stenosis HTN - BP well controlled - s/p 500 cc bolus of NS in the ER - c/w Amlodipine / Metoprolol with hold parameters DLP - c/w Simvastatin ESRD on HD via R IJ PermCath - IgA Nephropathy - Patient is scheduled for HD on Tuesday - Had been scheduled for outpatient HD on T//S - Nephrology for HD on consultation - c/w Prednisone; dose was reduced Secondary Hyperparathyroidism Anemia - Hg slightly higher than baseline - Will continue to trend Neuropathy - c/w Gabapentin at reduced dose BPH - c/w Tamsulosin Hypothyroidism - c/w Levothyroxine DVT prophylaxis - c/w TEDs (re: Thrombocytopenia) Disposition: - Transition to ALC - Will need rehab VSQuirino, I+O VSQuirino, I+O Laboratory Tests 05/07/21 15:22 05/08/21 06:05 Vital Signs Date Time Temp Pulse Resp B/P (MAP) Pulse Ox O2 Delivery O2 Flow Rate FiO2 05/08/21 08:37 71 105/65 05/08/21 06:00 96.3 19 94 Room Air I&O- Last 24 Hours up to 6 AM 05/08/21 06:00 Intake Total 800 ml Output Total 1000 ml Balance -200 ml NUZHAT HERRERA MD May 08, 2021 10:53
--- NOTE | 2021-05-08 12:55 | CR ---
CONSULTATION DATE: 05/08/2021 REQUESTING PHYSICIAN: NUZHAT HERRERA MD CONSULTING PHYSICIAN: MICHI SINGH DO REASON FOR CONSULTATION: Management of acute kidney injury requiring hemodialysis. HISTORY OF PRESENT ILLNESS: Mr. Raúl Gomez is known to me from his very recent hospitalization. He is a 75-year-old male who was recently at [facility] from April 27 to May 06 for C. Difficile diarrhea and acute on chronic renal failure. He required hemodialysis initiation during that hospitalization and his last dialysis was on TuesdayMay 06. He was subsequently discharged home to complete his antibiotic course for C. Difficile and to follow-up in the outpatient hemodialysis unit for dialysis on a Tuesday, , Tuesday schedule. However, at home, yesterday, the patient felt very weak and he could not even get out of his chair. He was subsequently brought to the Emergency Room for further evaluation. Patient denies any recurrent diarrhea, reports he just feels generally very weak and unable to move around. He denies any shortness of breath, chest pain, nausea or vomiting. He was admit for Physical Therapy, Occupational Therapy and likely rehabilitation placement. PAST MEDICAL HISTORY: IgA nephropathy with chronic kidney disease on prednisone, acute kidney injury requiring hemodialysis, recently initiated on his recent hospital stay on a Tuesday, and Tuesday schedule. Coronary artery disease status post CABG, atrial fibrillation, mitral valve annuloplasty, aortic stenosis, recent C. Difficile colitis (completing a course of Dificid), secondary hyperparathyroidism of renal origin, anemia, gout, hypothyroidism, history of myocardial infarction, osteoporosis, restless leg syndrome, BPH. PAST SURGICAL HISTORY: Perm-A-Cath placement and CABG, mitral annuloplasty and kidney biopsy in March 2021. ALLERGIES: No known drug allergies. HOME MEDICATIONS: His discharge medications from May 06 is reviewed; amlodipine 5 mg daily, Dificid 200 mg p.o. b.i.d., finasteride 5 mg daily, Gabapentin 300 mg once daily, levothyroxine 88 mcg daily, Lovastatin 80 mg p.o. q.h.s., prednisone 30 mg p.o. daily, metoprolol 100 mg daily, Flomax 0.4 mg daily. FAMILY HISTORY: He has a history of heart disease in the family. SOCIAL HISTORY: He is a remote ex-smoker and does not drink alcohol. Denies illicit drugs. 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 REVIEW OF SYSTEMS: Constitutional: He reports generalized weakness and fatigue. Eyes: He denies visual changes or tearing. ENT: He denies epistaxis or rhinorrhea. Cardiac: He has a history of CABG and history of atrial fibrillation. He denies leg swelling. He denies chest pain. Respiratory: He denies shortness of breath or cough. Gastrointestinal: He reports recent C. difficile colitis. He denies any current diarrhea. Genitourinary: He reports he has been making urine. He denies dysuria or hematuria. He has a history of IgA nephropathy. Endocrine: He reports hypothyroidism and secondary hyperparathyroidism. Hematologic: He reports anemia. He denies anticoagulant use. Musculoskeletal: He reports a history of gout. He denies acute arthralgias. He reports generalized weakness. Neurologic: He denies seizure or syncope. The remainder of review of systems is negative or as per HPI. PHYSICAL EXAMINATION: VITAL SIGNS: Temperature is 96.3, pulse is 75, respiratory rate 19, blood pressure is 109/59, saturating 94% on room air. GENERAL: Patient is seen awake, alert and oriented in the Hemodialysis Unit receiving his treatment in no distress. HEENT: Extraocular muscles are intact. Tongue is moist. NECK: Supple. Jugular veins are not elevated. HEART: Heart sounds are S1 and S2. There is a systolic murmur. There is trace leg edema bilaterally. There is a Perm-A-Cath in the right chest wall that is currently in use. LUNGS: Breath sounds are clear to auscultation. No crackles or rales. ABDOMEN: Soft and nontender. Normal bowel sounds. EXTREMITIES: He moves all four extremities on command. There is trace leg edema. NEUROLOGIC: He is oriented x3 at baseline mentation, interactive and conversational. LABS: White count is 6.3, hemoglobin is 9.3, platelets 103,000, sodium 143, potassium 4.2, bicarbonate 28. IMAGING: He had venous Duplex of the legs which shows no DVT. Chest x-ray done yesterday shows stable chronic changes (moderate interstitial fibrotic changes). INPATIENT MEDICATIONS: He received normal saline 500 ml bolus x1, Tylenol p.r.n., atorvastatin 20 mg daily, Dificid 200 mg p.o. b.i.d., finasteride 5 mg daily, Gabapentin 100 mg p.o. b.i.d., levothyroxine 88 mcg p.o. daily, metoprolol XL 100 mg daily, Milk of Magnesia p.r.n., prednisone 60 mg daily, Flomax 0.4 mg p.o. daily. PROBLEMS: 1. Acute kidney injury superimposed on CKD Stage IIIB. Baseline creatinine is about 2.0. Patient has underlying IgA nephropathy. He had an acute kidney injury in the setting of C. Difficile colitis. He was started on dialysis around 10 days ago for this acute kidney injury. We are monitoring for signs of renal recovery; at present he is hemodialysis dependent. He was dialyzed today. I only took off 1/2 liter of fluid as I note that he is having improving urine output. He received Heparin free dialysis because of thrombocytopenia. His thrombocytopenia has been improving. 2. C. Difficile colitis. He is completing a course of Dificid. He denies any current diarrhea. 3. Anemia related to iron deficiency and chronic renal failure. We will repeat the iron panel and can start Aranesp as needed. 4. Hypertension. I stopped amlodipine as his blood pressures have been soft, okay to continue metoprolol. He does have a history of atrial fibrillation as well. 5. Atrial fibrillation, he is rate controlled on metoprolol. He is off of anticoagulation because of apparent bleeding episode. He had low platelets on his most recent hospitalizations as well and he has been receiving Heparin free dialysis and his platelet levels have improved. His Heparin induced antibody was negative. 6. Neuropathy. I am decreasing the dose of Gabapentin in view of GFR less than 15. 7. IgA nephropathy. His prednisone dose is adjusted for the current outpatient dose of 30 mg daily. MTDD
[2021-05-08 13:34] LABS: PERCENT SATURATION 41.8 % (19.7-50.0)
[2021-05-08 14:00] VITALS: BP 96/54
[2021-05-08] MEDS: ACETAMINOPHEN TAB 650MG DOSE (2X325MG) PO PRN (20:27)
[2021-05-08 22:00] VITALS: BP 113/68
[2021-05-09] MEDS: RAMELTEON 8 MG TAB (ROZEREM) PO PRN ×2 (00:16→21:45)
[2021-05-09] MEDS: LEVOTHYROXINE 88MCG TABLET (0.088 MG) PO SCH (05:12)
[2021-05-09 06:00] VITALS: BP 116/68
[2021-05-09 06:39] LABS: BASO % 0.1 % (0.0-1.0); EOS % 0.4 % (0.0-3.0); HEMATOCRIT 28.4 % (42.0-52.0); HEMOGLOBIN 9.3 g/dl (13.5-17.5); LYMPH # 0.4 10^3/uL (1.5-5.0); LYMPH % 5.5 % (24.0-44.0); MEAN CORPUSCULAR HEMOGLOBIN 31.2 pg (27.0-33.0); MEAN CORPUSCULAR HGB CONC 32.7 g/dl (32.0-36.5); MEAN CORPUSCULAR VOLUME 95.3 fl (80.0-96.0); MONO # 0.5 10^3/uL (0.0-0.8); MONO % 6.8 % (2.0-8.0); NEUTROPHILS % 82.8 % (36.0-66.0); PLATELET COUNT, AUTOMATED 118 10^3/uL (150-450); RED BLOOD COUNT 2.98 10^6/uL (4.30-6.10); WHITE BLOOD COUNT 7.2 10^3/uL (4.0-10.0)
[2021-05-09 07:00] LABS: CALCIUM LEVEL 7.4 MG/DL (8.8-10.2); CREATININE FOR GFR 3.36 MG/DL (0.70-1.30); POTASSIUM SERUM 3.9 MEQ/L (3.5-5.1)
[2021-05-09] MEDS: METOPROLOL SUCC (TopROL XL) 100MG *XL* TAB PO SCH (09:00)
[2021-05-09] MEDS: FINASTERIDE 5 MG TAB PO SCH (10:45)
[2021-05-09] MEDS: TAMSULOSIN 0.4 MG CAP PO SCH (10:46)
[2021-05-09] MEDS: ATORVASTATIN 20 MG TAB PO SCH (10:46)
[2021-05-09] MEDS: FIDAXOMICIN 200 MG TAB (DIFICID) PO SCH ×2 (10:46→21:45)
[2021-05-09] MEDS: predniSONE 10 MG TAB PO SCH (11:06)
--- NOTE | 2021-05-09 13:09 | IPN ---
NEPHROLOGY PROGRESS NOTE DATE: 05/09/2021 SUBJECTIVE: Mr. Gomez is seen this morning at his bedside. He is laying in his bed without any acute distress. He was dialyzed yesterday which he tolerated well. The patient reports that he could not urinate and required a Castillo catheter a couple of days ago, however now he is able to urinate and did urinate this morning. He denies any nausea or vomiting. He is still very weak and unable to get up or ambulate. He is currently on ALC status. OBJECTIVE: PHYSICAL EXAMINATION: VITAL SIGNS: Temperature 97.2 degrees Fahrenheit, heart rate 80 per minute, respiratory rate 18, per minute, blood pressure 96/54 mm of mercury and oxygen saturation 97% on room air. HEENT: Head is atraumatic. NECK: Supple and JVD difficult to be assessed. He has a permacath in his right internal jugular vein. CHEST: There is some ecchymosis on his right upper chest. HEART: Irregular in rhythm. LUNGS: Clear to auscultation. ABDOMEN: Protuberant and nontender. Bowel sounds are normal. EXTREMITIES: Without any cyanosis or clubbing. There is no edema on his legs. NEUROLOGICAL: He is awake, alert and oriented x3. LABORATORY STUDIES: Today's lab show a white blood cell count of 7.2, hemoglobin 9.3, and hematocrit 28.4, platelet count 118. Sodium 136, potassium 3.9, CO2 27, BUN 32 and creatinine 3.36. Calcium now is 7.4 and magnesium 2.0. PROBLEMS: 1. Acute renal failure superimposed on chronic kidney disease - The patient is still oliguric and was dialyzed yesterday. We will continue to monitor his urine output and plan for next dialysis on Tuesday. At this point there is no emergent need for dialysis today. His electrolytes are within normal range and volume status is well compensated. 2. Congestive heart failure volume status is well compensated and no need for diuretic at present. He is being managed with dialysis. 3. Anemia at present his anemia is stable and we will continue with Aranesp once a week. His iron studies are appropriate. We will start with Aranesp 100 mcg once a week. 4. History of IgA nephropathy - The patient has been on Prednisone 30 mg daily and will continue with the same. 5. Urinary retention - The patient is now on Flomax and Proscar and he reports no difficulty urinating this morning. 6. History of C-diff colitis - The patient is on Dificid 200 mg twice daily and his diarrhea is improved. 7. Generalized weakness and deconditioning - The patient is still very weak and likely to require subacute rehab.
[2021-05-09 13:30] VITALS: BP 96/53
[2021-05-09] MEDS: GABAPENTIN 100 MG CAP PO SCH (21:45)
[2021-05-09] MEDS: ACETAMINOPHEN TAB 650MG DOSE (2X325MG) PO PRN (21:46)
[2021-05-09 22:00] VITALS: BP 109/65
[2021-05-10] MEDS: LEVOTHYROXINE 88MCG TABLET (0.088 MG) PO SCH (05:36)
[2021-05-10 06:00] VITALS: BP 105/70
[2021-05-10 06:48] LABS: BASO % 0.3 % (0.0-1.0); EOS % 0.1 % (0.0-3.0); HEMATOCRIT 27.6 % (42.0-52.0); HEMOGLOBIN 8.9 g/dl (13.5-17.5); LYMPH # 0.4 10^3/uL (1.5-5.0); LYMPH % 5.4 % (24.0-44.0); MEAN CORPUSCULAR HGB CONC 32.2 g/dl (32.0-36.5); MEAN CORPUSCULAR VOLUME 96.2 fl (80.0-96.0); MONO # 0.5 10^3/uL (0.0-0.8); MONO % 7.6 % (2.0-8.0); NEUTROPHILS # 5.6 10^3/uL (1.5-8.5); NEUTROPHILS % 81.9 % (36.0-66.0); PLATELET COUNT, AUTOMATED 139 10^3/uL (150-450); RED BLOOD COUNT 2.87 10^6/uL (4.30-6.10); WHITE BLOOD COUNT 6.8 10^3/uL (4.0-10.0)
[2021-05-10 07:16] LABS: CALCIUM LEVEL 7.3 MG/DL (8.8-10.2); CREATININE FOR GFR 4.55 MG/DL (0.70-1.30); GLOMERULAR FILTRATION RATE 13.4 (>42); POTASSIUM SERUM 4.9 MEQ/L (3.5-5.1)
[2021-05-10] MEDS: METOPROLOL SUCC (TopROL XL) 100MG *XL* TAB PO SCH (09:00)
[2021-05-10] MEDS: predniSONE 10 MG TAB PO SCH (09:08)
[2021-05-10] MEDS: FINASTERIDE 5 MG TAB PO SCH (09:08)
[2021-05-10] MEDS: FIDAXOMICIN 200 MG TAB (DIFICID) PO SCH ×2 (09:08→21:36)
[2021-05-10] MEDS: TAMSULOSIN 0.4 MG CAP PO SCH (09:09)
[2021-05-10] MEDS: ATORVASTATIN 20 MG TAB PO SCH (09:09)
[2021-05-10] MEDS: GABAPENTIN 100 MG CAP PO SCH (21:36)
[2021-05-10] MEDS: RAMELTEON 8 MG TAB (ROZEREM) PO PRN (21:36)
[2021-05-10] MEDS: ACETAMINOPHEN TAB 650MG DOSE (2X325MG) PO PRN (21:36)
[2021-05-11] MEDS: TAMSULOSIN 0.4 MG CAP PO SCH (05:56)
[2021-05-11] MEDS: METOPROLOL SUCC (TopROL XL) 100MG *XL* TAB PO SCH (05:57)
[2021-05-11] MEDS: FINASTERIDE 5 MG TAB PO SCH (05:57)
[2021-05-11] MEDS: predniSONE 10 MG TAB PO SCH (05:57)
[2021-05-11] MEDS: ATORVASTATIN 20 MG TAB PO SCH (05:57)
[2021-05-11] MEDS: LEVOTHYROXINE 88MCG TABLET (0.088 MG) PO SCH (05:57)
[2021-05-11 06:00] VITALS: BP 147/66
[2021-05-11 06:32] LABS: HEMATOCRIT 27.7 % (42.0-52.0); HEMOGLOBIN 8.9 g/dl (13.5-17.5); MEAN CORPUSCULAR HGB CONC 32.1 g/dl (32.0-36.5); MEAN CORPUSCULAR VOLUME 96.5 fl (80.0-96.0); PLATELET COUNT, AUTOMATED 153 10^3/uL (150-450); RED BLOOD COUNT 2.87 10^6/uL (4.30-6.10); WHITE BLOOD COUNT 6.9 10^3/uL (4.0-10.0)
[2021-05-11 06:58] LABS: CALCIUM LEVEL 7.4 MG/DL (8.8-10.2); CREATININE FOR GFR 4.97 MG/DL (0.70-1.30); GLOMERULAR FILTRATION RATE 12.1 (>42); MAGNESIUM LEVEL 2.1 MG/DL (1.8-2.4); POTASSIUM SERUM 5.2 MEQ/L (3.5-5.1)
[2021-05-11 07:38] LABS: EOSINOPHILS 1 % (0-3); LYMPHOCYTES 9 % (16-44); MONOCYTES 4 % (0-5); MYELOCYTES 1 % (0-0); NEUTROPHILS 81 % (28-66); PLATELET ESTIMATE DECREASED (NORMAL); PROMYELOCYTES 2 % (0-0)
[2021-05-11] MEDS: DARBEPOETIN 100 MCG/0.5 ML *DIALYSIS* SYRINGE (J0882) IV SCH (10:18)
--- NOTE | 2021-05-11 11:55 | IPN ---
PROGRESS NOTE DATE: 05/11/2021 SUBJECTIVE: Mr. Gomez is seen this morning on his bedside. He is feeling well and denies any complaints. The nursing staff has reported bradycardia with heart rate in the high 30s to low 40s during dialysis. This morning his heart rate was recorded at 64 per minute, however the dialysis machine has been consistently reading his heart rate close to 40 per minute. Patient denies any chest pain, dyspnea or dizziness. OBJECTIVE: VITAL SIGNS: Temperature 97 degrees Fahrenheit, heart rate 39 per minute and respiratory rate 18 per minute. Blood pressure 115/60 mmHg during dialysis and oxygen saturation is 96% on room air. INPUT AND OUTPUT: Yesterday, he had a total urine output of 550 ml which is maximum in the last several days. HEENT: Head is atraumatic. Neck is supple and without JVD or thyroid enlargement. HEART: Heart sounds are bradycardic. LUNGS: Clear to auscultation. ABDOMEN: Soft and nontender. Bowel sounds are normal. EXTREMITIES: Without any cyanosis or clubbing. There is no peripheral edema. CHEST: Hemodialysis catheter on right upper chest is intact. NEUROLOGIC: He has no focal deficit. LABORATORY DATA: Today's labs showed a WBC count of 6.9, hemoglobin 8.9 and hematocrit 27.7. Sodium 136, potassium 5.2, CO2 26, BUN 67 and creatinine 4.97. Glucose is 89 and calcium is 7.4. PROBLEMS: 1. Acute renal failure superimposed on chronic kidney disease. Patient has a slightly improved urine output, however still dialysis dependent. She is being dialyzed today and will continue to monitor his urine output and his renal function. 2. Hyperkalemia, mild hyperkalemia will be corrected with dialysis and no other intervention will be needed. Patient is being dialyzed with 2.0 mEq of potassium bath. 3. Hypertension. Blood pressure seems very well-controlled, however I am concerned about bradycardia during dialysis. Patient has been getting metoprolol succinate 100 mg daily and probably he received his dose this morning. I am going to cut down the dose of metoprolol to 50 mg once a day. 4. Generalized weakness and deconditioning. The patient remains very weak and is going to require subacute rehab. 5. Anemia. His anemia is improving and he remains on Aranesp 100 mcg once a day. 6. C. Diff colitis. Patient has completed the Dificid treatment and it has now been stopped. His diarrhea has improved.
[2021-05-11 20:25] VITALS: BP 112/55
[2021-05-11] MEDS: GABAPENTIN 100 MG CAP PO SCH (20:37)
[2021-05-12] MEDS: LEVOTHYROXINE 88MCG TABLET (0.088 MG) PO SCH (05:49)
[2021-05-12 05:54] VITALS: BP 131/60
[2021-05-12 08:22] LABS: HEMATOCRIT 29.6 % (42.0-52.0); HEMOGLOBIN 9.7 g/dl (13.5-17.5); MEAN CORPUSCULAR HEMOGLOBIN 31.7 pg (27.0-33.0); MEAN CORPUSCULAR HGB CONC 32.8 g/dl (32.0-36.5); MEAN CORPUSCULAR VOLUME 96.7 fl (80.0-96.0); PLATELET COUNT, AUTOMATED 198 10^3/uL (150-450); RED BLOOD COUNT 3.06 10^6/uL (4.30-6.10); WHITE BLOOD COUNT 7.3 10^3/uL (4.0-10.0)
[2021-05-12 08:41] LABS: CALCIUM LEVEL 7.7 MG/DL (8.8-10.2); CREATININE FOR GFR 3.27 MG/DL (0.70-1.30); GLOMERULAR FILTRATION RATE 19.7 (>42); MAGNESIUM LEVEL 1.8 MG/DL (1.8-2.4); POTASSIUM SERUM 5.1 MEQ/L (3.5-5.1)
[2021-05-12] MEDS: FINASTERIDE 5 MG TAB PO SCH (08:47)
[2021-05-12] MEDS: METOPROLOL SUCC (TopROL XL) 50MG **XL** TAB PO SCH (08:47)
[2021-05-12] MEDS: ATORVASTATIN 20 MG TAB PO SCH (08:48)
[2021-05-12] MEDS: TAMSULOSIN 0.4 MG CAP PO SCH (08:48)
[2021-05-12] MEDS: predniSONE 10 MG TAB PO SCH (08:48)
[2021-05-12 08:54] LABS: EOSINOPHILS 1 % (0-3); LYMPHOCYTES 26 % (16-44); METAMYELOCYTES 3 % (0-0); MONOCYTES 4 % (0-5); MYELOCYTES 1 % (0-0); NEUTROPHILS 65 % (28-66)
[2021-05-12 08:55] LABS: PLATELET ESTIMATE NORMAL (NORMAL)
[2021-05-12] MEDS ORDERED: TORSEMIDE 20 MG TAB PO ONE (10:05)
--- NOTE | 2021-05-12 11:06 | IPN ---
PROGRESS NOTE DATE: 05/12/2021 SUBJECTIVE: I was alerted by nursing staff of a vesicular rash dermatomal distribution, right back around the T12 area. On exam it looked classically like herpes zoster. I have reviewed the patient's records. He is on prednisone 20 mg daily but there is no sign of this being disseminated and he does not look particularly sick from this (totally asymptomatic as far as the zoster), therefore we will treat in the usual manner with oral antiviral but monitor for potential for dissemination.
--- NOTE | 2021-05-12 12:36 | IPN ---
PROGRESS NOTE DATE: 05/12/2021 SUBJECTIVE: Mr. Gomez is seen this morning on his bedside. He just finished his Physical Therapy and is back in the bed. He reports getting stronger and was able to walk in the hallway with the help of the walker and Physical Therapist. He denied any dyspnea, chest pain, nausea or vomiting. He did have hemodialysis yesterday which he tolerated well. OBJECTIVE: VITAL SIGNS: Temperature 97.8 degrees Fahrenheit, heart rate is 63 per minute and respiratory rate is 18 per minute. Blood pressure is 131/60 mmHg and oxygen saturation 100% on room air. HEAD AND NECK: Head is atraumatic. Neck is supple without JVD or thyroid enlargement. Hemodialysis catheter in right internal jugular vein is intact. HEART: Heart sounds are regular. LUNGS: Clear to auscultation. ABDOMEN: Protuberant, soft and nontender. Bowel sounds are present. EXTREMITIES: Without any cyanosis or clubbing. No peripheral edema noted. LABORATORY DATA: Today's labs shows WBC count 7.3, hemoglobin 9.7 and hematocrit 29.6, sodium 136, potassium 5.1, BUN 39 and creatinine 3.27. PROBLEMS: 1. Acute renal failure superimposed on chronic kidney disease. Patient has slightly increased urine output, however kidney function is still not improving. He was dialyzed yesterday and I will reevaluate him tomorrow for need for dialysis. 2. Hypertension, blood pressure is much better now with decreased dose of metoprolol. No changes are being made today. 3. Congestive heart failure. His congestive heart failure was mostly related to oliguric acute renal failure. He is now making slightly increased urine and I am going to give him a dose of torsemide 40 mg today and see if he responds to it. 4. Anemia. His anemia is better and improving. We will continue with weekly dose of Aranesp. 5. History of IgA nephropathy. Patient has been on prednisone 30 mg daily and I am going to cut it down to 20 mg daily for now. 6. Deconditioning and weakness. Patient is making progress with Physical Therapy.
[2021-05-12] MEDS: valACYclovir HCL 500 MG TAB PO SCH (16:48)
[2021-05-12] MEDS: GABAPENTIN 100 MG CAP PO SCH (20:36)
[2021-05-13 06:00] VITALS: BP 140/64
[2021-05-13] MEDS: LEVOTHYROXINE 88MCG TABLET (0.088 MG) PO SCH (06:16)
[2021-05-13 07:02] LABS: HEMATOCRIT 30.9 % (42.0-52.0); HEMOGLOBIN 10.1 g/dl (13.5-17.5); MEAN CORPUSCULAR HEMOGLOBIN 31.6 pg (27.0-33.0); MEAN CORPUSCULAR HGB CONC 32.7 g/dl (32.0-36.5); MEAN CORPUSCULAR VOLUME 96.6 fl (80.0-96.0); PLATELET COUNT, AUTOMATED 214 10^3/uL (150-450); WHITE BLOOD COUNT 8.4 10^3/uL (4.0-10.0)
[2021-05-13 07:36] LABS: CALCIUM LEVEL 7.6 MG/DL (8.8-10.2); CREATININE FOR GFR 4.17 MG/DL (0.70-1.30); GLOMERULAR FILTRATION RATE 14.8 (>42); MAGNESIUM LEVEL 1.8 MG/DL (1.8-2.4); POTASSIUM SERUM 5.6 MEQ/L (3.5-5.1)
[2021-05-13 07:42] LABS: EOSINOPHILS 1 % (0-3); LYMPHOCYTES 10 % (16-44); MONOCYTES 10 % (0-5); NEUTROPHILS 78 % (28-66); PLATELET ESTIMATE NORMAL (NORMAL)
[2021-05-13] MEDS: predniSONE 20 MG TAB PO SCH (08:23)
[2021-05-13] MEDS: ATORVASTATIN 20 MG TAB PO SCH (08:23)
[2021-05-13] MEDS: FINASTERIDE 5 MG TAB PO SCH (08:24)
[2021-05-13] MEDS: TAMSULOSIN 0.4 MG CAP PO SCH (08:24)
[2021-05-13] MEDS: METOPROLOL SUCC (TopROL XL) 50MG **XL** TAB PO SCH (09:00)
--- NOTE | 2021-05-13 12:12 | IPN ---
PROGRESS NOTE DATE: 05/13/2021 SUBJECTIVE: Mr. Gomez is seen this morning on his bedside. He is sitting in the chair and reports that he was diagnosed with shingles yesterday as he developed a rash on his right lower chest on the back. He denies any nausea, vomiting, dyspnea or chest pain. OBJECTIVE: VITAL SIGNS: Temperature 98.2 degrees Fahrenheit, heart rate 45 per minute, and respiratory rate 20 per minute. Blood pressure is 140/64 mmHg and oxygen saturation 95% on room air. INTAKE AND OUTPUT: Intake and output records from yesterday showed a total output only 700 ml. HEAD AND NECK: His head is atraumatic. Neck is supple and without JVD or thyroid enlargement. HEART: Heart sounds are regular and bradycardic. LUNGS: Clear to auscultation. SKIN: Rash on the back is covered with a dressing. ABDOMEN: Soft and nontender. Bowel sounds are normal. EXTREMITIES: Without any cyanosis or clubbing. NEUROLOGIC: He is awake, alert and oriented x3. LABORATORY DATA: Today's labs showed a WBC count of 8.4, hemoglobin 10.1 and hematocrit 30.9, platelets 214,000. Sodium 133, potassium 5.6, BUN 57 and creatinine 4.17. Calcium level is 7.6 and magnesium is 1.8. PROBLEMS: 1. Acute renal failure superimposed on chronic kidney disease. Patient remains oliguric and dialysis dependent. Will plan to dialyze him again this afternoon. 2. Hyperkalemia, this is related to renal failure and likely to correct with dialysis. I do not feel that he needs any other intervention. We will dialyze him with 2.0 mEq of potassium bath. 3. Mild hyponatremia, related to acute renal failure and will be corrected with dialysis. 4. Anemia. The anemia is stable and improved. No intervention is needed. He is already receiving Aranesp once a week with dialysis. 5. Hypertension. Blood pressure is very well-controlled. I have cut down his metoprolol dose to 50 mg daily due to bradycardia during dialysis. He is still bradycardic even today. We will monitor and watch for next 24 hours. 6. IgA nephropathy. Patient has been on prednisone which was cut down to 20 mg daily and will continue for now. We will continue to taper his prednisone over the next couple of weeks. 7. Generalized weakness and deconditioning. Patient feels he is making good progress with rehab. He is walking in the hallway and using a walker.
[2021-05-13] MEDS: valACYclovir HCL 500 MG TAB PO SCH (18:31)
[2021-05-13] MEDS: GABAPENTIN 100 MG CAP PO SCH (20:09)
[2021-05-13] MEDS: RAMELTEON 8 MG TAB (ROZEREM) PO PRN (21:45)
[2021-05-14] MEDS: LEVOTHYROXINE 88MCG TABLET (0.088 MG) PO SCH (05:47)
[2021-05-14 06:00] VITALS: BP 135/63
[2021-05-14 06:55] LABS: HEMOGLOBIN 9.7 g/dl (13.5-17.5); MEAN CORPUSCULAR HEMOGLOBIN 31.2 pg (27.0-33.0); MEAN CORPUSCULAR HGB CONC 32.3 g/dl (32.0-36.5); MEAN CORPUSCULAR VOLUME 96.5 fl (80.0-96.0); PLATELET COUNT, AUTOMATED 194 10^3/uL (150-450); RED BLOOD COUNT 3.11 10^6/uL (4.30-6.10); WHITE BLOOD COUNT 7.6 10^3/uL (4.0-10.0)
[2021-05-14 07:17] LABS: CALCIUM LEVEL 7.8 MG/DL (8.8-10.2); CREATININE FOR GFR 2.78 MG/DL (0.70-1.30); GLOMERULAR FILTRATION RATE 23.7 (>42); MAGNESIUM LEVEL 1.8 MG/DL (1.8-2.4); POTASSIUM SERUM 5.2 MEQ/L (3.5-5.1)
[2021-05-14 07:20] LABS: ATYPICAL LYMPH 3 % (0-5); EOSINOPHILS 1 % (0-3); LYMPHOCYTES 19 % (16-44); METAMYELOCYTES 2 % (0-0); MONOCYTES 7 % (0-5); MYELOCYTES 3 % (0-0); NEUTROPHILS 65 % (28-66)
[2021-05-14 07:21] LABS: ANISOCYTOSIS 1+; PLATELET ESTIMATE NORMAL (NORMAL); POLYCHROMASIA 1+
[2021-05-14] MEDS: TAMSULOSIN 0.4 MG CAP PO SCH (10:07)
[2021-05-14] MEDS: METOPROLOL SUCC (TopROL XL) 50MG **XL** TAB PO SCH (10:07)
[2021-05-14] MEDS: predniSONE 20 MG TAB PO SCH (10:07)
[2021-05-14] MEDS: FINASTERIDE 5 MG TAB PO SCH (10:08)
[2021-05-14] MEDS: ATORVASTATIN 20 MG TAB PO SCH (10:08)
[2021-05-14] MEDS: valACYclovir HCL 500 MG TAB PO SCH (18:28)
[2021-05-14] MEDS: GABAPENTIN 100 MG CAP PO SCH (21:06)
[2021-05-14] MEDS: RAMELTEON 8 MG TAB (ROZEREM) PO PRN (21:06)
[2021-05-15 06:00] VITALS: BP 126/52
[2021-05-15] MEDS: LEVOTHYROXINE 88MCG TABLET (0.088 MG) PO SCH (06:34)
[2021-05-15] MEDS: ATORVASTATIN 20 MG TAB PO SCH (08:10)
[2021-05-15] MEDS: METOPROLOL SUCC (TopROL XL) 50MG **XL** TAB PO SCH (08:10)
[2021-05-15] MEDS: TAMSULOSIN 0.4 MG CAP PO SCH (08:10)
[2021-05-15] MEDS: predniSONE 20 MG TAB PO SCH (08:10)
[2021-05-15] MEDS: FINASTERIDE 5 MG TAB PO SCH (08:10)
[2021-05-15] MEDS: valACYclovir HCL 500 MG TAB PO SCH (16:37)
--- NOTE | 2021-05-15 16:53 | IPN ---
NEPHROLOGY PROGRESS NOTE DATE: 05/15/2021 SUBJECTIVE: Mr. Gomez is seen this morning during hemodialysis. He is feeling about the same and still weak. He has started to ambulate with the help of a walker with physical therapist. He denies any nausea, vomiting, dyspnea or chest pain. PHYSICAL EXAMINATION: Temperature 97.3 degrees Fahrenheit, heart rate 52 per minute, respiratory rate 20 per minute, blood pressure 126/52 mmHg, oxygen saturation 100% on room air. HEAD: Atraumatic. NECK: Supple and without jugular venous distention (JVD) or thyroid enlargement. HEART SOUNDS: Regular. LUNGS: Clear to auscultation. ABDOMEN: Soft and nontender. Bowel sounds are normal. EXTREMITIES: Without any cyanosis or clubbing. NEUROLOGIC: He is awake, alert and oriented times three. LABORATORY DATA: His labs from May 14, 2021 reveal a hemoglobin of 9.7, hematocrit 30.0. Potassium was 5.2, BUN 29 and creatinine 2.78. Today labs were not done. PROBLEMS: 1. Oliguric acute renal failure superimposed on chronic kidney disease. Patient has some improvement in his urine output; however, his maximum urine output yesterday was only 500 mL. He is still dialysis dependent and is being dialyzed today. We are trying to remove about 1 liter of fluid or less than that. 2. Hypertension. Blood pressure seems well-controlled and bradycardia slightly improved since his beta constantin dose was cut down. 3. Hyperkalemia. Yesterday's potassium level was 5.2 and he is being dialyzed with 2.0 mEq potassium bath. This will correct his hyperkalemia. Electrolytes should be checked again on Tuesday. 4. Anemia. His anemia has been stable and he remains on weekly dose of Aranesp 100 mcg. 5. Benign prostatic hypertrophy (BPH). Patient remains on Flomax and Proscar and denies any difficulty voiding. 6. History of IgA nephropathy. Patient has been on prednisone and dose has been cut down to 20 mg daily.
[2021-05-15] MEDS: ACETAMINOPHEN TAB 650MG DOSE (2X325MG) PO PRN (21:04)
[2021-05-15] MEDS: GABAPENTIN 100 MG CAP PO SCH (21:04)
[2021-05-15] MEDS: RAMELTEON 8 MG TAB (ROZEREM) PO PRN (21:04)
[2021-05-16] MEDS: LEVOTHYROXINE 88MCG TABLET (0.088 MG) PO SCH (05:39)
[2021-05-16 06:00] VITALS: BP 126/66
[2021-05-16] MEDS: TAMSULOSIN 0.4 MG CAP PO SCH (08:17)
[2021-05-16] MEDS: predniSONE 20 MG TAB PO SCH (08:17)
[2021-05-16] MEDS: ATORVASTATIN 20 MG TAB PO SCH (08:17)
[2021-05-16] MEDS: FINASTERIDE 5 MG TAB PO SCH (08:17)
[2021-05-16] MEDS: METOPROLOL SUCC (TopROL XL) 50MG **XL** TAB PO SCH (08:17)
[2021-05-16] MEDS: valACYclovir HCL 500 MG TAB PO SCH (15:53)
--- NOTE | 2021-05-16 18:49 | IPN ---
NEPHROLOGY PROGRESS NOTE DATE: 05/16/2021 SUBJECTIVE: Patient was seen and examined at the bedside today morning. He was dialyzed yesterday. He tolerated the hemodialysis procedure well. He reports that he is still feeling weak, but he is still working with physical therapy. Otherwise, he denies any active complaints. OBJECTIVE: VITAL SIGNS: Temperature 97.3 degrees Fahrenheit, blood pressure 126/66, pulse 73, respiratory rate 20, saturating 95% on room air. INTAKE AND OUTPUT: Urine output recorded as 100 mL since overnight. Ultrafiltration with hemodialysis was 800 mL. Weight in the bed scale is 68.2 kg. PHYSICAL EXAMINATION: GENERAL: Patient is awake, alert, oriented times three, sitting up in the bed, no apparent distress. HEAD AND NECK EXAM: Extraocular muscles intact. Pupils equally round and reactive to light. Mucous membranes are moist. Neck is supple. He has a right internal jugular (IJ) tunneled hemodialysis catheter. CARDIOVASCULAR: S1, S2. Regular rate. No edema of the bilateral lower extremities. RESPIRATORY: Chest is clear to auscultation bilaterally. Bilateral equal air entry. ABDOMEN: Soft. Obese. Positive bowel sounds. Nontender. No organomegaly MUSCULOSKELETAL: No clubbing or cyanosis. Pulses are 2+. CENTRAL NERVOUS SYSTEM (JUNIOR DATABASE ADMINISTRATOR): No focal deficit. Power is 5/5 in all extremities. LABORATORY STUDIES: CBC is from May 14, 2021 and that was reviewed. BMP is also from May 14, 2021 and that was reviewed. Patient has been dialyzed yesterday, so his hyperkalemia should have improved. CURRENT INPATIENT MEDICATIONS: Patient's medications were all reviewed by myself. Prednisone dose has been decreased to 15 mg by mouth daily by myself. No other significant change in the medications. ASSESSMENT AND PLAN: 1. Acute oliguric renal failure. Patient remains oliguric. He is dialysis dependent. Dialysis was done yesterday. Next hemodialysis will be done on Tuesday morning. 2. IgA nephropathy. Patient is getting prednisone. There is no significant improvement in the renal function. Prednisone dose has been decreased to 15 mg by mouth daily. 3. Hyperkalemia. Patient was dialyzed with a 2K bath. Potassium should have improved. 4. Hypertension. Blood pressure is controlled with the current dose of metoprolol. 5. Anemia in renal failure. Patient is getting Aranesp. Hemoglobin level is stable and improving. 6. Herpes rash. Patient is currently on Valcyte as per medical team.
[2021-05-16] MEDS: RAMELTEON 8 MG TAB (ROZEREM) PO PRN (20:45)
[2021-05-16] MEDS: GABAPENTIN 100 MG CAP PO SCH (20:45)
[2021-05-16] MEDS: ACETAMINOPHEN TAB 650MG DOSE (2X325MG) PO PRN (20:45)
[2021-05-17] MEDS: LEVOTHYROXINE 88MCG TABLET (0.088 MG) PO SCH (06:15)
[2021-05-17 06:18] VITALS: BP 136/59
[2021-05-17] MEDS: FINASTERIDE 5 MG TAB PO SCH (08:32)
[2021-05-17] MEDS: ATORVASTATIN 20 MG TAB PO SCH (08:32)
[2021-05-17] MEDS: TAMSULOSIN 0.4 MG CAP PO SCH (08:35)
[2021-05-17] MEDS: METOPROLOL SUCC (TopROL XL) 50MG **XL** TAB PO SCH (08:36)
[2021-05-17] MEDS ORDERED: predniSONE 5 MG TAB PO SCH (09:00)
--- NOTE | 2021-05-17 15:52 | IPN ---
NEPHROLOGY PROGRESS NOTE DATE: 05/17/2021 SUBJECTIVE: Patient was seen and examined at the bedside today morning. He is afebrile, hemodynamically stable. He remains oliguric. He reports that his physical strength is getting better. Tomorrow is patient's regular day of dialysis. OBJECTIVE: VITAL SIGNS: Temperature 97.6 degrees Fahrenheit, blood pressure 136/59, pulse 76, respiratory rate 18, saturating 97% on room air. INTAKE AND OUTPUT: Urine output is not recorded. He has had three voids since overnight. Weight in the bed scale is 68.3 kg. PHYSICAL EXAMINATION: GENERAL: Patient is awake, alert, oriented times three, laying in bed, no apparent distress. HEAD AND NECK EXAM: Extraocular muscles intact. Pupils equally round and reactive to light. Mucous membranes are moist. Neck is supple. He has a right internal jugular (IJ) tunneled hemodialysis catheter. CARDIOVASCULAR: S1, S2. Regular rate. No edema of the bilateral lower extremities. RESPIRATORY: Chest is clear to auscultation bilaterally. Bilateral equal air entry. No rales or rhonchi. ABDOMEN: Soft. Obese. Positive bowel sounds. Nontender. No organomegaly MUSCULOSKELETAL: No clubbing or cyanosis. CENTRAL NERVOUS SYSTEM (ANIMAL ANATOMIST): No focal deficit. Power is 5/5 in all extremities. LABORATORY STUDIES: CBC and BMP is from May 14, 2021. Next lab draw will be done tomorrow morning. CURRENT INPATIENT MEDICATIONS: Patient's medications were all reviewed by myself. There is no significant change in the medications today as compared with yesterday. ASSESSMENT AND PLAN: 1. Acute renal failure. Patient is still dialysis dependent and next session of dialysis will be done tomorrow morning. 2. IgA nephropathy. No significant improvement in the renal function. He is currently on prednisone 15 mg daily and it is being tapered down. 3. Hypertension. Continue current dose of metoprolol. 4. Herpes rash. It is currently getting better. He is currently on Valcyte. 5. Anemia in renal failure. Continue current dose of Aranesp with dialysis.
[2021-05-17] MEDS: valACYclovir HCL 500 MG TAB PO SCH (16:06)
[2021-05-17 20:00] VITALS: BP 103/58
[2021-05-17] MEDS: GABAPENTIN 100 MG CAP PO SCH (21:14)
[2021-05-17] MEDS: ACETAMINOPHEN TAB 650MG DOSE (2X325MG) PO PRN (21:14)
[2021-05-17] MEDS: RAMELTEON 8 MG TAB (ROZEREM) PO PRN (21:14)
[2021-05-18] MEDS: LEVOTHYROXINE 88MCG TABLET (0.088 MG) PO SCH (05:21)
[2021-05-18 06:29] VITALS: BP 137/62
[2021-05-18 06:41] LABS: BASO # 0.1 10^3/uL (0.0-0.2); EOS % 0.4 % (0.0-3.0); HEMATOCRIT 29.3 % (42.0-52.0); HEMOGLOBIN 9.2 g/dl (13.5-17.5); LYMPH # 0.8 10^3/uL (1.5-5.0); LYMPH % 10.9 % (24.0-44.0); MEAN CORPUSCULAR HEMOGLOBIN 31.3 pg (27.0-33.0); MEAN CORPUSCULAR HGB CONC 31.4 g/dl (32.0-36.5); MEAN CORPUSCULAR VOLUME 99.7 fl (80.0-96.0); MONO # 0.7 10^3/uL (0.0-0.8); MONO % 9.8 % (2.0-8.0); NEUTROPHILS # 4.6 10^3/uL (1.5-8.5); NEUTROPHILS % 66.4 % (36.0-66.0); PLATELET COUNT, AUTOMATED 167 10^3/uL (150-450); RED BLOOD COUNT 2.94 10^6/uL (4.30-6.10)
[2021-05-18 07:01] LABS: ALBUMIN 2.4 GM/DL (3.2-5.2); CALCIUM LEVEL 7.4 MG/DL (8.8-10.2); CREATININE FOR GFR 3.97 MG/DL (0.70-1.30); GLOMERULAR FILTRATION RATE 15.7 (>42); PHOSPHORUS LEVEL 4.5 MG/DL (2.5-4.9); POTASSIUM SERUM 4.2 MEQ/L (3.5-5.1)
[2021-05-18] MEDS ORDERED: predniSONE 10 MG TAB PO SCH (09:00)
[2021-05-18] MEDS: DARBEPOETIN 100 MCG/0.5 ML *DIALYSIS* SYRINGE (J0882) IV SCH (09:09)
[2021-05-18] MEDS: ATORVASTATIN 20 MG TAB PO SCH (13:10)
[2021-05-18] MEDS: TAMSULOSIN 0.4 MG CAP PO SCH (13:11)
[2021-05-18] MEDS: FINASTERIDE 5 MG TAB PO SCH (13:11)
[2021-05-18 13:12] VITALS: BP 116/59
[2021-05-18] MEDS: METOPROLOL SUCC (TopROL XL) 50MG **XL** TAB PO SCH (13:12)
[2021-05-18 14:00] VITALS: BP 90/50
--- NOTE | 2021-05-18 14:07 | IPN ---
NEPHROLOGY PROGRESS NOTE DATE: 05/18/2021 SUBJECTIVE: Patient is seen and examined at the bedside today morning during hemodialysis procedure. He is tolerating the hemodialysis procedure well. He denies any active complaints. He reports that he is being sent to [facility] today. OBJECTIVE: VITAL SIGNS: Temperature 97.3 degrees Fahrenheit, blood pressure 137/62, pulse 72, respiratory rate 18, saturating 98% on room air. INTAKE AND OUTPUT: Urine output recorded is not recorded. Weight in the bed scale was 68 kg yesterday. PHYSICAL EXAMINATION: GENERAL: Patient is awake, alert, oriented times three, laying in bed getting hemodialysis done. HEAD AND NECK EXAM: Extraocular muscles intact. Pupils equally round and reactive to light. Mucous membranes are moist. Neck is supple. He has a right internal jugular (IJ) tunneled hemodialysis catheter. CARDIOVASCULAR: S1, S2. Regular rate. No edema of the bilateral lower extremities. RESPIRATORY: Chest is clear to auscultation bilaterally. Bilateral equal air entry. No rales or rhonchi. ABDOMEN: Soft. Obese. Positive bowel sounds. Nontender. No organomegaly MUSCULOSKELETAL: No clubbing or cyanosis. Pulses are 2+. CENTRAL NERVOUS SYSTEM (INSTRUMENT STERILIZER): No focal deficit. Power is 5/5 in all extremities. LABORATORY STUDIES: CBC showed WBC 7, hemoglobin 9.2, platelets 167. BMP showed sodium 140, potassium 4.2, chloride 106, bicarbonate 25, BUN 46, creatinine 3.9, calcium 4.5. CURRENT INPATIENT MEDICATIONS: Patient's medications were all reviewed by myself. I have decreased the prednisone dose to 10 mg by mouth daily. No other significant change in the medications. ASSESSMENT AND PLAN: 1. Acute renal failure superimposed on chronic kidney disease. Patient is still dialysis dependent. He is being dialyzed today and he will continue the outpatient dialysis until his renal function improves back to baseline. 2. IgA nephropathy. Patient was being given steroids, but because of multiple problems, including Clostridium (C) difficile colitis infection, right-sided chest wall shingles and muscle weakness, his prednisone is being tapered down now. 3. Hypertension. Blood pressure is controlled with metoprolol. 4. Anemia in renal failure. Hemoglobin level is stable at 9.2. Continue current dose of Aranesp. DISPOSITION: Patient is optimized from a nephrology standpoint to be discharged. He will be followed up as outpatient at the dialysis center.
[2021-05-18] MEDS ORDERED: GABA-1171 PO (14:47)
[2021-05-18] MEDS ORDERED: ATOR1TAB21 PO (14:47)
[2021-05-18] MEDS ORDERED: RAME8TAB2 PO (14:47)
[2021-05-18] MEDS ORDERED: VALA500T5 PO (14:47)
[2021-05-18] MEDS ORDERED: PRED10TA2 PO (14:47)
[2021-05-18] MEDS ORDERED: METO1TAB7 PO (14:47)
[2021-05-18] MEDS: valACYclovir HCL 500 MG TAB PO SCH ×3 (15:18→15:24)
--- NOTE | 2021-05-27 13:21 | DSES ---
DISCHARGE SUMMARY DATE OF ADMISSION: 05/07/2021 DATE OF DISCHARGE: 05/18/2021 PRINCIPAL DIAGNOSIS: Acute renal failure superimposed on chronic kidney disease. SECONDARY DIAGNOSES: 1. IgA nephropathy. 2. Hypertensive heart disease. 3. Anemia from chronic renal failure. 4. Herpes zoster. 5. History of Clostridium difficile colitis. HISTORY: Patient was admitted, and it looks like he was quickly placed on assisted facility (SNF) level of care. I only saw him once during his hospitalization when nursing staff noticed a rash. It proved to be herpes zoster. He had Clostridium (C) difficile colitis, worsening renal failure prior to his hospitalization. Failed vancomycin and was treated with Dificid. Started on dialysis for his chronic kidney disease. Became too weak to take care of himself at home, so he was admitted to the hospital for placement. DISPOSITION: He was discharged on May 19 on finasteride 5 mg daily, levothyroxine 88 mg daily, and tamsulosin 0.4 mg daily. Followup with primary care provider. Followup with nephrology per their office. He was on a renal diet with activity as tolerated.
== END 2021-05-18 16:50 | DRG 683 ==
LOC: M ED 14:36 → EDBD 14:36 → M ED INP 17:25 → ENRESERV 19:56 → M MS5PR 21:46
PROVIDERS: ADMIT Internal Medicine; ATTEND Family Medicine
PROC: 5A1D70Z Performance of Urinary Filtration, Intermittent, Less than 6 Hours Per Day (ICD-10-PCS; principal; 2021-05-08)
DX: N17.9 Acute kidney failure, unspecified (principal); A04.72 Enterocolitis due to Clostridium difficile, not specified as recurrent; I13.0 Hypertensive heart and chronic kidney disease with heart failure and stage 1 through stage 4 chronic kidney disease, or unspecified chronic kidney disease; E87.1 Hypo-osmolality and hyponatremia; R53.1 Weakness; N02.8 Recurrent and persistent hematuria with other morphologic changes; N25.81 Secondary hyperparathyroidism of renal origin; N18.32 Chronic kidney disease, stage 3b; I25.10 Atherosclerotic heart disease of native coronary artery without angina pectoris; Z95.5 Presence of coronary angioplasty implant and graft; I48.91 Unspecified atrial fibrillation; Z99.2 Dependence on renal dialysis; D63.1 Anemia in chronic kidney disease; M10.9 Gout, unspecified; Z87.891 Personal history of nicotine dependence; I35.0 Nonrheumatic aortic (valve) stenosis; E78.5 Hyperlipidemia, unspecified; G62.9 Polyneuropathy, unspecified; N40.0 Benign prostatic hyperplasia without lower urinary tract symptoms; Z20.822 Contact with and (suspected) exposure to COVID-19; Z79.899 Other long term (current) drug therapy; Z72.3 Lack of physical exercise; D50.9 Iron deficiency anemia, unspecified; R33.9 Retention of urine, unspecified; E87.6 Hypokalemia; B02.9 Zoster without complications; I50.9 Heart failure, unspecified

== ENCOUNTER 2021-05-22 17:44 | Inpatient (IN) | payer OTHER, MEDICARE ==
[~2021-05-22] VITALS: Ht 177.8 cm; Wt 65.4 kg
[~2021-05-22 17:44] MED LIST changes: +ATOR1TAB21 PO; +GABA-1171 PO; +METO1TAB7 PO; +PRED10TA2 PO; +RAME8TAB2 PO; +VALA500T5 PO
[2021-05-22 19:29] LABS: HEMATOCRIT 33.7 % (42.0-52.0); HEMOGLOBIN 10.8 g/dl (13.5-17.5); MEAN CORPUSCULAR HEMOGLOBIN 32.2 pg (27.0-33.0); MEAN CORPUSCULAR VOLUME 100.6 fl (80.0-96.0); PLATELET COUNT, AUTOMATED 127 10^3/uL (150-450); RED BLOOD COUNT 3.35 10^6/uL (4.30-6.10); WHITE BLOOD COUNT 8.4 10^3/uL (4.0-10.0)
--- NOTE | 2021-05-22 19:41 | REP ---
INDICATION: weakness COMPARISON: 05/07/2021 TECHNIQUE: Portable AP view of the chest FINDINGS: Cardiomegaly is again appreciated with double-lumen Tessio catheter extending to the right atrium. Chronic interstitial changes and findings to suggest superimposed pulmonary venous congestion with bibasilar atelectasis and possible layering effusions cannot be excluded. Correlation is required. IMPRESSION: Cardiomegaly and chronic appearing changes. Cannot exclude superimposed pulmonary venous congestion along with basilar atelectasis and possible small layering effusions. <Electronically signed by Kayden Campos > 05/22/211936
--- NOTE | 2021-05-22 19:50 | REPVR ---
PROCEDURE INFORMATION: Exam: CT Cervical Spine Without Contrast Exam date and time: 05/22/2021 6:58 PM Age: 75 years old Clinical indication: Injury or trauma; Fall; Weakness; Blunt trauma; Additional info: Weakness, fall TECHNIQUE: Imaging protocol: Computed tomography images of the cervical spine without contrast. Radiation optimization: All CT scans at this facility use at least one of these dose optimization techniques: automated exposure control; mA and/or kV adjustment per patient size (includes targeted exams where dose is matched to clinical indication); or iterative reconstruction. COMPARISON: CT Chest without contrast 04/27/2021 5:55 PM FINDINGS: Bones/joints: No acute fractures seen in the cervical spine. Partial bony fusion of the C2 and C3 vertebral bodies is present, likely a congenital finding. The cervical spine alignment is normal. Discs/Spinal canal/Neural foramina: Mild chronic degenerative bony neuroforaminal stenosis secondary to uncal joint and posterior facet joint arthropathy, bilaterally at C3/C4 and on the left at C4/C5. No significant spinal canal stenosis. Lungs: Moderately severe emphysematous change is noted in the lung apices bilaterally. Soft tissues: Unremarkable prevertebral and posterior paraspinal soft tissues. IMPRESSION: 1. No acute fractures seen in the cervical spine. 2. Partial bony fusion of the C2 and C3 vertebral bodies is present, likely a congenital finding. 3. The cervical spine alignment is normal. 4. Mild chronic degenerative bony neuroforaminal stenosis secondary to uncal joint and posterior facet joint arthropathy, bilaterally at C3/C4 and on the left at C4/C5. 5. No significant spinal canal stenosis. 6. Moderately severe emphysematous change is noted in the lung apices bilaterally. Electronically signed by: Fabien Dalton On 05/22/2021 19:50:36 PM
--- NOTE | 2021-05-22 19:52 | REPVR ---
PROCEDURE INFORMATION: Exam: CT Head Without Contrast Exam date and time: 05/22/2021 6:58 PM Age: 75 years old Clinical indication: Injury or trauma; Fall; Blunt trauma (contusions or hematomas); Weakness, extremity; Additional info: Weakness, fall TECHNIQUE: Imaging protocol: Computed tomography of the head without contrast. Radiation optimization: All CT scans at this facility use at least one of these dose optimization techniques: automated exposure control; mA and/or kV adjustment per patient size (includes targeted exams where dose is matched to clinical indication); or iterative reconstruction. COMPARISON: No relevant prior studies available. FINDINGS: Brain: No acute intracerebral abnormality or injury. No acute infarct or intracerebral bleed. Moderate age-appropriate cerebral atrophy with mild patchy periventricular leukomalacia in both cerebral hemispheres, consistent most likely with chronic underlying small vessel / microvascular ischemic disease. [place] Stroke Program Early CT Score (ASPECTS score) = 10. Cerebral ventricles: No ventriculomegaly. Paranasal sinuses: Visualized sinuses are unremarkable. No fluid levels. Mastoid air cells: Visualized mastoid air cells are well aerated. Bones/joints: Unremarkable. No acute fracture. Soft tissues: Unremarkable. IMPRESSION: 1. No acute intracerebral abnormality or injury. No acute infarct or intracerebral bleed. 2. Moderate age-appropriate cerebral atrophy with mild patchy periventricular leukomalacia in both cerebral hemispheres, consistent most likely with chronic underlying small vessel / microvascular ischemic disease. 3. [place] Stroke Program Early CT Score (ASPECTS score) = 10. Electronically signed by: Fabien Dalton On 05/22/2021 19:52:37 PM
[2021-05-22 19:57] LABS: ALBUMIN 2.6 GM/DL (3.2-5.2); BILIRUBIN,DIRECT 0.2 MG/DL (0.0-0.2); BILIRUBIN,TOTAL 0.4 MG/DL (0.2-1.0); CALCIUM LEVEL 7.9 MG/DL (8.8-10.2); CK-MB VALUE MASS 3.1 NG/ML (<3.6); CREATININE FOR GFR 4.03 MG/DL (0.70-1.30); FREE T4 0.9 NG/DL (0.76-1.46); GLOMERULAR FILTRATION RATE 15.4 (>42); MB/CK RELATIVE INDEX 5.34 (< OR =4); POTASSIUM SERUM 3.8 MEQ/L (3.5-5.1); THYROID STIMULATING HORMONE 1.94 uIU/ML (0.358-3.740); TOTAL PROTEIN 5.8 GM/DL (6.4-8.2); TROPONIN I 0.14 NG/ML (< 0.10)
[2021-05-22 20:23] LABS: BASOPHILS 1 % (0-1); LYMPHOCYTES 11 % (16-44); METAMYELOCYTES 1 % (0-0); MONOCYTES 9 % (0-5); MYELOCYTES 2 % (0-0); NEUTROPHILS 64 % (28-66); PLATELET ESTIMATE DECREASED (NORMAL)
[2021-05-22] MEDS ORDERED: ROZE8TAB16 PO (20:39)
[2021-05-22] MEDS ORDERED: GABA-1171 PO (20:39)
[2021-05-22] MEDS ORDERED: PRED10TA2 PO (20:39)
[2021-05-22] MEDS ORDERED: METO1TAB7 PO (20:39)
[2021-05-22] MEDS ORDERED: ATOR1TAB21 PO (20:39)
--- NOTE | 2021-05-22 20:39 | ECGEPIP ---
[facility] - ED Test Date: 2021-05-22 Pat Name: IVAN MAGALLANES Department: Room: - Gender: Male Security Engineer: QUINN : 1945 Requested By: DIONISIO Reynolds Order Number: [id number] Reading MD: Sreedhar Sheth Measurements Intervals [place] Rate: 77 P: NH: 240 QRS: -60 QRSD: 130 T: -6 QT: 380 QTc: 430 Interpretive Statements Sinus rhythm with 1st degree AV block Left axis deviation Right bundle branch block Minimal voltage criteria for LVH, may be normal variant ( R in aVL ) Possible Lateral infarct , age undetermined Inferior infarct , age undetermined SIMILAR TO 05/07/21 Electronically Signed on 05-22-2021 20:38:53 EDT by Sreedhar Sheth
[2021-05-22] MEDS ORDERED: HOME MED LIST COMPLETE! XX SCH (20:40)
[2021-05-22 21:34] LABS: RSV AMPLIFICATION NEGATIVE (NEGATIVE)
[2021-05-22 22:47] LABS: CK-MB VALUE MASS 3.2 NG/ML (<3.6); MB/CK RELATIVE INDEX 5.82 (< OR =4); TROPONIN I 0.13 NG/ML (< 0.10)
[2021-05-22 23:08] LABS: C REACTIVE PROTEIN QUANTITATIV 10.1 MG/DL (0.00-0.30)
[2021-05-22] MEDS ORDERED: MOM 30ML SUSPENSION UDC PO PRN (23:35)
[2021-05-22] MEDS ORDERED: MAALOX 30 ML SUSP *UDC PO PRN (23:35)
--- NOTE | 2021-05-22 23:59 | HPEPDOC ---
[facility] Medical History & Physical Date of Admission May 22, 2021 Date of Service: May 22, 2021 Primary Care Physician: URIAH BURCIAGA M.D. Attending Physician: LULU SANTOYO MD MPH History and Physical CHIEF COMPLAINT: Weakness and multiple falls at home HISTORY OF PRESENT ILLNESS: Mr. Gomez is a 75-year-old male who is brought to the ER by EMS after his was unable to get him out of his chair today. The patient has end-stage renal disease and has hemodialysis on Tuesday, and Tuesday. He underwent dialysis yesterday, but fell at the clinic. Staff was able to help him get up and assist him to get home. He fell again in the early hours of the morning when he tried to get out of bed to go to the bathroom. His was unable to help him get up and EMS was called. He refused to go to the hospital at that time. He states his legs are too weak and he is unable to stand to get out of his chair. He normally uses his walker to ambulate around the house but has fallen even while using that. He was originally admitted about a month ago after he fell at home and was down for about 6 hours. At that time he was also positive for C. difficile and was diagnosed with end-stage renal disease and started on hemodialysis. He spent about 2 weeks in the hospital and was discharged to rehabilitation and then home. He returned to the hospital the same day with the same complaints. This evening. Patient denies any other complaints other than weakness. He denies chest pain, fever, chills, nausea, vomiting or diarrhea. He does still have some residual pain in the left lateral chest secondary to the fall a month ago which resulted in a fractured rib. He denies any shortness of breath. CT of the head a nd cervical spine showed no acute pathology. It did note chronic small vessel disease. Chest x-ray indicated cardiomegaly and chronic changes. Radiology could not exclude superimposed pulmonary venous congestion along with basilar atelectasis and possible small layering effusions. Again, the patient denied any respiratory symptoms and was satting between 93-96% on room air. . He has anemia of chronic kidney disease with hemoglobin and hematocrit 10.8 and 33.7. He was also noted to have cirrhosis, etiology unclear, per CT scan done at the beginning of April. He has a history of thrombocytopenia and platelets this evening or 127. BUN/creatinine are consistent with end-stage renal disease, at 2 8 and 4.03. He had some elevation of alkaline phosphatase at 131. His troponin show some chronic mild elevation with end-stage renal disease but has been stable 2. CRP is elevated at 10.10. EKG was similar to previous studies, with a right bundle branch block and first-degree AV block. PAST MEDICAL HISTORY: 1. Atrial fibrillation on no anticoagulation. 2. Coronary artery disease. 3. Aortic stenosis. 4. Pulmonary hypertension. 5. Hypertension. 6. Hypothyroid. 7. C. difficile 8. End-stage renal disease on hemodialysis. 9. IgA nephropathy, on chronic steroids. 10. Secondary hyperparathyroidism. 11. Anemia with chronic kidney disease. 12. Gout. 13. Neuropathy. 14. Benign prostatic hypertrophy. 15. Cirrhosis. 16. Thrombocytopenia PAST SURGICAL HISTORY: 1. Mitral valve annuloplasty. 2. CABG 3. Dialysis catheter placement SOCIAL HISTORY: Tobacco use: Former ETOH: Former Illicit drug use: Denies Patient lives with: His FAMILY HISTORY: Family history was thoroughly reviewed and found to be noncontributory REVIEW OF SYSTEMS: Complete 10 point review systems is negative except as noted above PHYSICAL EXAMINATION: Patient is seen in the ER, lying on the stretcher.. He is alert and oriented x 3. HEENT is WNL. Neck is supple. Lungs are clear to auscultation. Heart regular rate and rhythm without murmur. . He has a tunneled dialysis catheter in the right upper chest with insertion site clean and dressing dry and intact. Abdomen is soft, non-tender to palpation with bowel sounds positive. Extremities with good ROM and strength equal bilaterally, although bilateral lower extremities are weak. No lower extremity edema. Pedal pulses are positive. Skin is warm and dry with no obvious rash or lesion. Neuro: grossly intact. Psych: He is slightly anxious ASSESSMENT AND PLAN: 1. Weakness with multiple falls at home and possible proximal muscle weakness with elevated CRP. Last physical and occupational therapies to evaluate and treat. Fall precautions. Patient will probably require placement for ongoing aggressive physical and occupational therapies. 2. End-stage renal disease with hemodialysis and IgA nephropathy. Patient normally receives dialysis Tuesday, and Tuesday. Will consult nephrology in the morning to continue. Continue chronic steroids. Monitor intake and output closely. Weigh daily. Avoid nephrotoxic medications. 3. Cirrhosis, etiology unclear. Continue supportive care. 4. Thrombocytopenia. Continue to monitor platelets, but daily labs. 5. Coronary artery disease with chronic elevation of troponin. Patient denies any chest pain. Continue statin, beta constantin and monitor on telemetry. 6. Atrial fibrillation on no anticoagulation secondary to history of bleeding and frequent falls. Continue beta constantin and monitor on telemetry. 7. Benign prostatic hypertrophy. Finasteride and Flomax. 8. Hypothyroid. Continue levothyroxine. 9. Neuropathy. Continue gabapentin. 10. Hypertension, essential. Currently on no antihypertensives other than metoprolol. Monitor with routine vital signs and adjust medications as needed based on trends. 11. DVT prophylaxis. Will add heparin. CODE STATUS: CODE STATUS was discussed with the patient desires to be considered full code. He states his would act as his surrogate if he were unable to make his own decisions. Patient is considered moderate risk for further deterioration including fall and risk of grave injury. He is admitted for close observation and further evaluation and expected to remain at least one midnight. Vital Signs Vital Signs Date Time Temp Pulse Resp B/P (MAP) Pulse Ox O2 Delivery O2 Flow Rate FiO2 05/22/21 22:00 76 20 127/67 (87) 91 Room Air 05/22/21 20:13 98.1 Laboratory Data Labs 24H Laboratory Tests 2 05/22/21 19:08: Immature Granulocyte % (Auto) , Neutrophils (%) (Auto) , Nucleated Red Blood Cells % (auto) 0.2H, Neutrophils 64, Band Neutrophils 12H, Lymphocytes (Manual) 11L, Monocytes (Manual) 9H, Basophils (Manual) 1, Metamyelocytes 1H, Myelocytes 2H, Platelet Estimate DECREASED, Anion Gap 10, Glomerular Filtration Rate 15.4L, Calcium Level 7.9L, Total Bilirubin 0.4, Direct Bilirubin 0.2, Aspartate Amino Transf (AST/SGOT) 29, Alanine Aminotransferase (ALT/SGPT) 53, Alkaline Ph osphatase 131H, Total Creatine Kinase 58, Creatine Kinase MB 3.1, Creatine Kinase MB Relative Index 5.34H, Troponin I 0.14H, Total Protein 5.8L, Albumin 2.6L, Albumin/Globulin Ratio 0.8, Thyroid Stimulating Hormone (TSH) 1.940, Free Thyroxine 0.90 05/22/21 20:23: Coronavirus (COVID-19)(PCR) NEGATIVE, Influenza Type A (RT-PCR) NEGATIVE, Influenza Type B (RT-PCR) NEGATIVE, Respiratory Syncytial Virus (PCR) NEGATIVE 05/22/21 22:08: Total Creatine Kinase 55, Creatine Kinase MB 3.2, Creatine Kinase MB Relative Index 5.82H, Troponin I 0.13H, C-Reactive Protein, Quantitative 10.10H CBC/BMP Laboratory Tests 05/22/21 19:08 Home Medications Scheduled Atorvastatin Calcium (Atorvastatin Calcium) 20 Mg Tablet, 20 MG PO QHS Finasteride (Finasteride) 5 Mg Tablet, 5 MG PO DAILY Gabapentin (Gabapentin) 100 Mg Capsule, 200 MG PO QHS Levothyroxine Sodium (Levoxyl) 88 Mcg Tab, 88 MCG PO DAILY Metoprolol Succinate (Metoprolol Succinate) 50 Mg Tab.er.24h, 50 MG PO DAILY Prednisone (Prednisone) 10 Mg Tablet, 10 MG PO DAILY Ramelteon (Rozerem) 8 Mg Tablet, 8 MG PO QHS Tamsulosin HCl (Flomax) 0.4 Mg Capsule, 0.4 MG PO DAILY TAKES AROUND LUNCHTIME Allergies Coded Allergies: No Known Allergies (Verified , 08/01/18) A-FIB/CHADSVASC A-FIB History Current/History of A-Fib/PAF?: Yes Current PO Anticoag Therapy: No Age/Risk Factor Scoring CHADSVASC: CHADSVASC Response (Comments) Value Age Risk Factor Age < 65 years old 0 Gender Risk Factor Male 0 Hx of CHF No 0 Hx of HTN Yes 1 Hx of Stroke/TIA/or VTE No 0 Hx of Diabetes No 0 Hx of Vascular Disease No 0 Total 1 Treatment Treatment ordered: NONE Reason Anticoagulant not given: Other Other reason anticoagulant not: History of bleeding and frequent falls GUZMAN CARDENAS May 22, 2021 23:59
[2021-05-23 01:34] VITALS: BP 140/72
[2021-05-23 06:00] VITALS: BP 119/55
--- NOTE | 2021-05-23 06:16 | ECGEPIP ---
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
[2021-05-23 06:19] LABS: HEMOGLOBIN 9.5 g/dl (13.5-17.5); MEAN CORPUSCULAR HEMOGLOBIN 31.5 pg (27.0-33.0); MEAN CORPUSCULAR HGB CONC 31.7 g/dl (32.0-36.5); MEAN CORPUSCULAR VOLUME 99.3 fl (80.0-96.0); PLATELET COUNT, AUTOMATED 113 10^3/uL (150-450); RED BLOOD COUNT 3.02 10^6/uL (4.30-6.10); WHITE BLOOD COUNT 7.9 10^3/uL (4.0-10.0)
[2021-05-23] MEDS: HEPARIN SOD (PORCINE) 5000UNITS/ML 1ML VIAL/SYRINGE SC SCH ×3 (06:29→20:20)
[2021-05-23 06:43] LABS: CALCIUM LEVEL 7.6 MG/DL (8.8-10.2); CREATININE FOR GFR 4.33 MG/DL (0.70-1.30); GLOMERULAR FILTRATION RATE 14.2 (>42); MAGNESIUM LEVEL 1.6 MG/DL (1.8-2.4); POTASSIUM SERUM 3.6 MEQ/L (3.5-5.1)
[2021-05-23] MEDS ORDERED: DARBEPOETIN 100 MCG/0.5 ML *DIALYSIS* SYRINGE (J0882) IV SCH (09:40)
[2021-05-23] MEDS ORDERED: PANTOPRAZOLE 40MG TAB (PROTONIX) PO ONE (12:00)
--- NOTE | 2021-05-23 13:03 | CR ---
CONSULTATION DATE: 05/23/2021 REQUESTING PHYSICIAN: Oleg Ascencio MD CONSULTING PHYSICIAN: Jackie Hobson M.D. REASON FOR CONSULTATION: Management of end-stage renal disease and hemodialysis. CHIEF COMPLAINT: The patient was brought to the emergency room because of weakness and multiple falls at home. HISTORY OF PRESENT ILLNESS: Raúl Gomez is a 75-year-old male with past medical history of renal failure secondary to IgA nephropathy, recently started on hemodialysis during hospitalization. He was sent home after admission in the rehab. However, he reports that when he came back from a recent dialysis as outpatient, he was very weak. He was unable to get off his chair. EMS was called and he was brought to the emergency room. The patient was admitted under the hospitalist service. Nephrology service was called for further help with the management of end-stage renal disease. I saw and evaluated the patient today morning at the bedside. I arranged his hemodialysis to be done today. He was tolerating the hemodialysis procedure well. PAST MEDICAL HISTORY: 1. Recent renal failure secondary to IgA nephropathy. 2. Atrial fibrillation, anticoagulated. 3. Coronary artery disease. 4. Aortic stenosis. 5. Pulmonary hypertension. 6. Hypothyroidism. 7. Recent C. diff colitis. 8. Secondary hyperparathyroidism. 9. Chronic gout. 10. Peripheral neuropathy. 11. Cirrhosis. PAST SURGICAL HISTORY: 1. Status post mitral valve annuloplasty. 2. Coronary artery bypass grafting. 3. Dialysis catheter placement. 4. Renal biopsy. ALLERGIES: No known drug allergies. FAMILY HISTORY: No significant family history of end-stage renal disease. SOCIAL HISTORY: The patient lives at home. He denies any active smoking, illicit drug abuse or alcohol abuse. He lives with his . REVIEW OF SYSTEMS: Constitutional: The patient reports extreme weakness. He denies any fevers or chills. Eyes: He denies any blurred vision, double vision. ENT: He denies any dysphagia, odynophagia. Cardiovascular: He denies any chest pain and palpitation.. Respiratory: He denies any shortness of breath. GI: He reports any nausea or vomiting. Genitourinary: He reports decreased urine output. Musculoskeletal: He reports muscle weakness. Skin: He denies any rashes or ulcers. Hematological/Oncological: He denies any easy bleeding or bruising. 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 All other review of systems is negative. PHYSICAL EXAMINATION: GENERAL: The patient is awake, alert, oriented x3, lying in bed, getting hemodialysis done. VITAL SIGNS: Temperature is 97.8 degrees Fahrenheit, blood pressure 140/72, pulse is 77, respiratory rate of 18, saturating 95% on room air. INTAKE AND OUTPUT: Urine output recorded since overnight is 150 mL. HEAD AND NECK: Extraocular muscles are intact. Pupils are equally round and reactive to light. Mucous membranes are moist. Neck is supple. He has a right IJ tunneled hemodialysis catheter. CARDIOVASCULAR: S1, S2, regular rate. EXTREMITIES: No edema in the bilateral lower extremities. RESPIRATORY: Chest is clear to auscultation bilaterally. Bilateral equal air entry. No rales or rhonchi. ABDOMEN: Soft, positive bowel sounds, nontender, no organomegaly. MUSCULOSKELETAL: No clubbing or cyanosis. Pulses are 2+. COMPOUND COATING MACHINE OFFBEARER: No focal deficits. Power is 5/5 in all extremities. LABORATORY DATA: Lab review: CBC showed a WBC of 7.9, hemoglobin 9.5, platelets 713. BMP showed sodium 137, potassium 3.6, chloride 102, bicarb 30, BUN 33, creatinine is 4.3. Magnesium is 1.6. IMAGING: A CT scan of the head was done which showed no acute intracerebral abnormality. Chronic underlying small air cell microvascular ischemic changes. HOME MEDICATIONS: 1. Lipitor 20 mg q.h.s. 2. Finasteride 5 mg p.o. daily. 3. Gabapentin 200 mg p.o. q.h.s. 4. Levothyroxine 88 mcg p.o. daily. 5. Metoprolol 50 mg p.o. daily. 6. Prednisone 10 mg p.o. daily. 7. Prednisone 10 mg p.o. daily. 8. Rozerem 8 mg p.o. q.h.s. 9. Flomax 0.4 mg p.o. daily. CURRENT INPATIENT MEDICATIONS: The patient's medications were all reviewed by myself. He is on: 1. Tylenol p.r.n. 2. I have started him on Aranesp 100 mg IV with dialysis. 3. Heparin subcu. 4. Milk of Magnesia. 5. I have started him on prednisone 10 mg p.o. daily. ASSESSMENT AND PLAN: 1. End-stage renal disease. The patient's renal failure is secondary to a combination of IgA nephropathy and recent hypotension with C. diff colitis. There are no signs of renal recovery at this time. He continues to be dialysis dependent and dialysis is being done at this time. Ultrafiltration goal would be around 500 mL as tolerated by his blood pressure. 2. Anemia secondary to renal failure. The patient is being started on Aranesp for dialysis. 3. IgA nephropathy. The patient was on prednisone 10 mg p.o. daily which is being slowly tapered down. I would not abruptly stop his prednisone at this time. Continue prednisone 10 mg p.o. daily and cortisone level will be checked to make sure he does not have adrenal insufficiency. 4. Muscle weakness. A wide use of statins at this time. Continue physical therapy. 5. Hypothyroidism. Continue home dose of levothyroxine at this time. Thank you for involving me in the care of this patient. I shall be happy to follow the patient along with you tomorrow morning.
[2021-05-23] MEDS: predniSONE 10 MG TAB PO SCH (13:08)
[2021-05-23 14:00] VITALS: BP 105/57
[2021-05-23] MEDS: METOPROLOL SUCC (TopROL XL) 50MG **XL** TAB PO SCH (15:40)
[2021-05-23] MEDS: TAMSULOSIN 0.4 MG CAP PO SCH (15:47)
[2021-05-23] MEDS: FINASTERIDE 5 MG TAB PO SCH (15:47)
[2021-05-23] MEDS: RAMELTEON 8 MG TAB (ROZEREM) PO SCH (20:19)
[2021-05-23] MEDS: GABAPENTIN 100 MG CAP PO SCH (20:19)
[2021-05-23] MEDS: cefTRIAXone SOD 1 GM in D5W MINI-BAG PLUS 50 ML IV SCH (20:19)
[2021-05-23] MEDS ORDERED: ATORVASTATIN 20 MG TAB PO SCH (21:00)
[2021-05-23 22:00] VITALS: BP 106/54
[2021-05-24] MEDS: HEPARIN SOD (PORCINE) 5000UNITS/ML 1ML VIAL/SYRINGE SC SCH ×3 (05:54→20:21)
[2021-05-24] MEDS: LEVOTHYROXINE 88MCG TABLET (0.088 MG) PO SCH (05:54)
[2021-05-24 06:00] VITALS: BP 106/58
[2021-05-24 07:46] LABS: BASO % 0.5 % (0.0-1.0); EOS % 0.3 % (0.0-3.0); HEMATOCRIT 27.6 % (42.0-52.0); HEMOGLOBIN 8.9 g/dl (13.5-17.5); LYMPH # 0.6 10^3/uL (1.5-5.0); LYMPH % 7.9 % (24.0-44.0); MEAN CORPUSCULAR HEMOGLOBIN 32.1 pg (27.0-33.0); MEAN CORPUSCULAR HGB CONC 32.2 g/dl (32.0-36.5); MEAN CORPUSCULAR VOLUME 99.6 fl (80.0-96.0); MONO # 0.8 10^3/uL (0.0-0.8); NEUTROPHILS # 5.7 10^3/uL (1.5-8.5); NEUTROPHILS % 75.3 % (36.0-66.0); PLATELET COUNT, AUTOMATED 101 10^3/uL (150-450); RED BLOOD COUNT 2.77 10^6/uL (4.30-6.10); WHITE BLOOD COUNT 7.6 10^3/uL (4.0-10.0)
[2021-05-24] MEDS: predniSONE 10 MG TAB PO SCH (08:28)
[2021-05-24] MEDS: TAMSULOSIN 0.4 MG CAP PO SCH (08:29)
[2021-05-24] MEDS: FINASTERIDE 5 MG TAB PO SCH (08:29)
[2021-05-24 08:34] LABS: ALBUMIN 2.2 GM/DL (3.2-5.2); BILIRUBIN,TOTAL 0.4 MG/DL (0.2-1.0); CALCIUM LEVEL 8.3 MG/DL (8.8-10.2); CREATININE FOR GFR 3.35 MG/DL (0.70-1.30); GLOMERULAR FILTRATION RATE 19.1 (>42); MAGNESIUM LEVEL 1.7 MG/DL (1.8-2.4); POTASSIUM SERUM 4.4 MEQ/L (3.5-5.1); TOTAL PROTEIN 5.1 GM/DL (6.4-8.2)
[2021-05-24 09:24] LABS: PERCENT SATURATION 43.1 % (19.7-50.0)
--- NOTE | 2021-05-24 11:58 | ECGEPIP ---
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 Possible old inferior wall myocardial infarct. Secondary repolarization abnormalities. No significant change compared with 05/22/2021 at 2154 hrs. Electronically Signed on 05-24-2021 11:58:26 EDT by Agapito Morejon
--- NOTE | 2021-05-24 13:13 | IPNPDOC ---
Date Seen The patient was seen on 05/23/21. Progress Note SUBJECTIVE: Patient was seen and examined at bedside this morning. Sitting upright in chair, pleasant, chest pain, palpitations, or breath, nausea, vomiting, diarrhea, fevers or chills. States ongoing generalized weakness. OBJECTIVE PHYSICAL EXAMINATION: VITAL SIGNS: please see below General: NAD, comfortable. She appears fatigued. HEENT: PERRLA, EOMI, sclerae clear Neck: supple, normal ROM, no JVD Respiratory: lungs CTAB, no wheeze, no rales, no crackles CVS: RRR, normal S1, S2, no murmurs Abdo: soft, no masses, no hepatosplenomegaly, BS+, no rebound tenderness Extremities: no edema, pulses 2+ MSK: no joint deformities, normal ROM Neuro: no focal neuro deficits, moving all 4 extremities, CN2-12 intact. Strength 5/5 in all 4 extremities. No nystagmus. Psych: calm, cooperative, AAO x 3 LABORATORY DATA, IMAGING STUDIES, MICROBIOLOGY: Please see below. Echocardiogram: Echo from 05/01/21: 1. Study is of fair technical quality, patient is in atrial flutter with controlled rate. 2. Normal LV size with mild LVH, low normal LV systolic function with estimated EF around 50% to 55%. 3. Dilated hypokinetic right ventricle. 4. Prominent aortic sclerosis resulting in approximately moderate aortic stenosis (mean gradient 20 mmHg) and mild aortic insufficiency. 5. Likely status post mitral valve annuloplasty resulting in mild mitral stenosis (mean gradient 5 mmHg). 6. Very high central venous pressure and moderately severe pulmonary hypertension. 7. At least moderate tricuspid insufficiency. 8. Dilated pulmonary artery. DVT prophylaxis ordered?: on warfarin ASSESSMENT AND PLAN: PROBLEMS: Weakness with multiple falls at home - will likely require placement to rehab - PT recommends home with services at this time, but I do not believe this to be a practical option given frequent readmissions from home for same ESRD on HD 2/2 IgA nephropathy. - HD on Tue//Tue - Dr. Hobson consulted - continue steroid therapy - avoid nephrotoxins Cirrhosis, etiology unclear - Continue supportive care Thrombocytopenia 2/2 liver cirrhosis - daily CBC CAD - hx CABG - Continue statin, beta constantin - monitor on Tele. Atrial fibrillation with slow ventricular rate - no AC due to frequent GI bleeds/falls - check nocturnal oximetry - EKG showing afib, bifascular block, previously seen on EKG in 04/2021 - need outpaitent ischemic workup - is asymptomatic during periods of bradycardia - hold metoprolol BPH - c/w flomax - c/w finasteride Hypothyroidism - Continue levothyroxine. Neuropathy - Continue gabapentin. Essential Hypertension - holding metoprolol given bradycardia DVT prophylaxis. Will add heparin. VS, I&O, 24H, Fishbone Vital Signs/I&O Vital Signs Date Time Temp Pulse Resp B/P (MAP) Pulse Ox O2 Delivery O2 Flow Rate FiO2 05/24/21 06:00 97.6 64 19 106/58 (74) 100 Room Air I&O- Last 24 Hours up to 6 AM 05/24/21 06:00 Intake Total 660 ml Output Total 650 ml Balance 10 ml Laboratory Data 24H LABS Laboratory Tests 2 05/23/21 15:11: Troponin I 0.09# 05/23/21 15:59: Urine Color YELLOW, Urine Appearance TURBIDH, Urine pH 6.0, Urine Specific [place] 1.010, Urine Protein 2+H, Urine Glucose (UA) NEGATIVE, Urine Ketones NEGATIVE, Urine Blood 3+H, Urine Nitrite NEGATIVE, Urine Bilirubin NEGATIVE, Urine Urobilinogen 0.2, Urine Leukocyte Esterase 1+H, Urine WBC (Auto) TNTCH, Urine RBC (Auto) 33H, Urine Hyaline Casts (Auto) 0, Urine Bacteria (Auto) 3+H, Urine Squamous Epithelial Cells 0, Urine Sperm (Auto) 05/24/21 07:37: Immature Granulocyte % (Auto) 5.0H, Neutrophils (%) (Auto) 75.3H, Lymphocytes (%) (Auto) 7.9L, Monocytes (%) (Auto) 11.0H, Eosinophils (%) (Auto) 0.3, Basophils (%) (Auto) 0.5, Neutrophils # (Auto) 5.7, Lymphocytes # (Auto) 0.6L, Monocytes # (Auto) 0.8, Eosinophils # (Auto) 0.0, Basophils # (Auto) 0.0, Nu cleated Red Blood Cells % (auto) 0.0, Anion Gap 7L, Glomerular Filtration Rate 19.1L, Calcium Level 8.3L, Magnesium Level 1.7L, Iron Level 75, Total Iron Binding Capacity 174L, Transferrin % Saturation 43.1, Ferritin 890H, Total Bilirubin 0.4, Aspartate Amino Transf (AST/SGOT) 17, Alanine Aminotransferase (ALT/SGPT) 36, Alkaline Phosphatase 84, Total Protein 5.1L, Albumin 2.2L, Albumin/Globulin Ratio 0.8 CBC/BMP Laboratory Tests 05/24/21 07:37 Microbiology Microbiology 05/23/21 Urine Culture, Received Pending BAR PURCELL MD May 24, 2021 13:13
--- NOTE | 2021-05-24 13:18 | IPNPDOC ---
Date Seen The patient was seen on 05/24/21. Progress Note SUBJECTIVE: Patient was seen and examined at bedside this morning. Sitting upright in chair, pleasant, chest pain, palpitations, or breath, nausea, vomiting, diarrhea, fevers or chills. States ongoing generalized weakness. Telemetry showing bradycardiac during sleep hours to 45. EKG c/w bifascicular block, previously seen on admission in 04/2021. OBJECTIVE PHYSICAL EXAMINATION: VITAL SIGNS: please see below General: NAD, comfortable. She appears fatigued. HEENT: PERRLA, EOMI, sclerae clear Neck: supple, normal ROM, no JVD Respiratory: lungs CTAB, no wheeze, no rales, no crackles CVS: RRR, normal S1, S2, no murmurs Abdo: soft, no masses, no hepatosplenomegaly, BS+, no rebound tenderness Extremities: no edema, pulses 2+ MSK: no joint deformities, normal ROM Neuro: no focal neuro deficits, moving all 4 extremities, CN2-12 intact. Strength 5/5 in all 4 extremities. No nystagmus. Psych: calm, cooperative, AAO x 3 LABORATORY DATA, IMAGING STUDIES, MICROBIOLOGY: Please see below. Echocardiogram: Echo from 05/01/21: 1. Study is of fair technical quality, patient is in atrial flutter with controlled rate. 2. Normal LV size with mild LVH, low normal LV systolic function with estimated EF around 50% to 55%. 3. Dilated hypokinetic right ventricle. 4. Prominent aortic sclerosis resulting in approximately moderate aortic stenosis (mean gradient 20 mmHg) and mild aortic insufficiency. 5. Likely status post mitral valve annuloplasty resulting in mild mitral stenosis (mean gradient 5 mmHg). 6. Very high central venous pressure and moderately severe pulmonary hypertension. 7. At least moderate tricuspid insufficiency. 8. Dilated pulmonary artery. DVT prophylaxis ordered?: on warfarin ASSESSMENT AND PLAN: PROBLEMS: 1. Weakness with multiple falls at home - will likely require placement to rehab - PT recommends home with services at this time, but I do not believe this to be a practical option given frequent readmissions from home for same 2. ESRD on HD 2/2 IgA nephropathy. - HD on Tue//Tue - Dr. Hobson consulted - continue steroid therapy - avoid nephrotoxins 3. Cirrhosis, etiology unclear - Continue supportive care. 4. Thrombocytopenia 2/2 liver cirrhosis - daily CBC 5. CAD - hx CABG - Continue statin, beta constantin - monitor on Tele. 6. Atrial fibrillation with slow ventricular rate - no AC due to frequent GI bleeds/falls - check nocturnal oximetry - EKG showing afib, bifascular block, previously seen on EKG in 04/2021 - need outpaitent ischemic workup - is asymptomatic during periods of bradycardia - hold metoprolol BPH - c/w flomax - c/w finasteride Hypothyroidism - Continue levothyroxine. Neuropathy - Continue gabapentin. Essential Hypertension - holding metoprolol given bradycardia 11. DVT prophylaxis. Will add heparin. VS, I&O, 24H, Fishbone Vital Signs/I&O Vital Signs Date Time Temp Pulse Resp B/P (MAP) Pulse Ox O2 Delivery O2 Flow Rate FiO2 05/24/21 06:00 97.6 64 19 106/58 (74) 100 Room Air I&O- Last 24 Hours up to 6 AM 05/24/21 06:00 Intake Total 660 ml Output Total 650 ml Balance 10 ml Laboratory Data 24H LABS Laboratory Tests 2 05/23/21 15:11: Troponin I 0.09# 05/23/21 15:59: Urine Color YELLOW, Urine Appearance TURBIDH, Urine pH 6.0, Urine Specific [place] 1.010, Urine Protein 2+H, Urine Glucose (UA) NEGATIVE, Urine Ketones NEGATIVE, Urine Blood 3+H, Urine Nitrite NEGATIVE, Urine Bilirubin NEGATIVE, Urine Urobilinogen 0.2, Urine Leukocyte Esterase 1+H, Urine WBC (Auto) TNTCH, Urine RBC (Auto) 33H, Urine Hyaline Casts (Auto) 0, Urine Bacteria (Auto) 3+H, Urine Squamous Epithelial Cells 0, Urine Sperm (Auto) 05/24/21 07:37: Immature Granulocyte % (Auto) 5.0H, Neutrophils (%) (Auto) 75.3H, Lymphocytes (%) (Auto) 7.9L, Monocytes (%) (Auto) 11.0H, Eosinophils (%) (Auto) 0.3, Basophils (%) (Auto) 0.5, Neutrophils # (Auto) 5.7, Lymphocytes # (Auto) 0.6L, Monocytes # (Auto) 0.8, Eosinophils # (Auto) 0.0, Basophils # (Auto) 0.0, Nucleated Red Blood Cells % (auto) 0.0, Anion Gap 7L, Glomerular Filtration Rate 19.1L, Calcium Level 8.3L, Magnesium Level 1.7L, Iron Level 75, Total Iron Bin ding Capacity 174L, Transferrin % Saturation 43.1, Ferritin 890H, Total Bilirubin 0.4, Aspartate Amino Transf (AST/SGOT) 17, Alanine Aminotransferase (ALT/SGPT) 36, Alkaline Phosphatase 84, Total Protein 5.1L, Albumin 2.2L, Albumin/Globulin Ratio 0.8 CBC/BMP Laboratory Tests 05/24/21 07:37 Microbiology Microbiology 05/23/21 Urine Culture, Received Pending BAR PURCELL MD May 24, 2021 13:18
[2021-05-24 14:00] VITALS: BP 103/56
[2021-05-24] MEDS: MAG SULF 1GM/100ML (MAG RUN) 1 GM in IV 1 EA IV SCH ×2 (14:09→15:17)
[2021-05-24] MEDS: RAMELTEON 8 MG TAB (ROZEREM) PO SCH (20:21)
[2021-05-24] MEDS: GABAPENTIN 100 MG CAP PO SCH (20:21)
[2021-05-24] MEDS: cefTRIAXone SOD 1 GM in D5W MINI-BAG PLUS 50 ML IV SCH (20:21)
[2021-05-24 22:00] VITALS: BP 121/58
--- NOTE | 2021-05-24 22:50 | IPN ---
NEPHROLOGY PROGRESS NOTE DATE: 05/24/2021 SUBJECTIVE: The patient was seen and examined at the bedside today morning. He is afebrile, hemodynamically stable. He was started on IV antibiotics for a possible urinary tract infection. He was dialyzed yesterday. He tolerated the hemodialysis procedure well. OBJECTIVE: VITAL SIGNS: Temperature is 97.2 degrees Fahrenheit, blood pressure 103/56, pulse is 75, respiratory rate of 18, saturating 98% on room air. INTAKE AND OUTPUT: There is no urine output recorded since overnight. Ultrafiltration with hemodialysis was 500 mL. PHYSICAL EXAMINATION: GENERAL APPEARANCE: The patient is awake, alert, oriented x3, laying in bed in no apparent distress. HEAD AND NECK: Extraocular muscles intact. Pupils are equally round and reactive to light. Mucous membranes are moist. Neck is supple. He has a right IJ tunneled hemodialysis catheter. CARDIOVASCULAR: S1, S2, regular rate. EXTREMITIES: No edema of the bilateral lower extremities. RESPIRATORY: Chest is clear to auscultation bilaterally. Bilaterally currently no rales or rhonchi. ABDOMEN: Soft, positive bowel sounds, nontender, no organomegaly. MUSCULOSKELETAL: No clubbing, no cyanosis. Pulses are 2+. DIESEL MECHANIC: No focal deficits. Power is 5/5 in all extremities. LAB REVIEW: CBC showed a WBC count of 7.6, hemoglobin 8.9, platelet count 101. BMP showed sodium 139, potassium 4.4, chloride 105, bicarbonate 27, BUN 20, creatinine is 3.3, calcium 8.3, magnesium is 1.7. CURRENT INPATIENT MEDICATIONS: The patient's medications were all reviewed by myself. He has been started on IV Ceftriaxone. The first dose was given yesterday. No other significant change in the medications today. ASSESSMENT AND PLAN: 1. End-stage renal disease - The patient is dialysis dependent. He was dialyzed yesterday. Next hemodialysis will be done on Tuesday. 2. IgA nephropathy - Prednisone dose is 10 mg. It will be slowly tapered down. 3. Possible urinary tract infection - The patient is on IV Ceftriaxone. Urine culture is pending. 4. Anemia in end-stage renal disease - continue current dose of Aranesp. Iron levels are adequate. 5. Muscle weakness the patient's statins are being stopped now.
[2021-05-25] MEDS: HEPARIN SOD (PORCINE) 5000UNITS/ML 1ML VIAL/SYRINGE SC SCH ×3 (05:58→20:29)
[2021-05-25] MEDS: LEVOTHYROXINE 88MCG TABLET (0.088 MG) PO SCH (05:58)
[2021-05-25 06:00] VITALS: BP 124/58
[2021-05-25] MEDS: FINASTERIDE 5 MG TAB PO SCH (08:23)
[2021-05-25] MEDS: TAMSULOSIN 0.4 MG CAP PO SCH (08:23)
[2021-05-25] MEDS: predniSONE 10 MG TAB PO SCH (08:23)
[2021-05-25] MEDS: METOPROLOL SUCC (TopROL XL) 50MG **XL** TAB PO SCH (09:00)
[2021-05-25 11:30] LABS: FOLATE 3.8 NG/ML (>5.4)
[2021-05-25 11:33] LABS: CORTISOL AM 19.8 UG/DL (4.3-22.4)
--- NOTE | 2021-05-25 13:08 | IPN ---
PROGRESS NOTE DATE: 05/25/2021 SUBJECTIVE: The patient is seen and examined this morning at the bedside. He has no complaints for me today. He denies any nausea, vomiting, shortness of breath. He remains afebrile. OBJECTIVE: VITAL SIGNS: Temperature 97.4, pulse 59, respiratory rate 17, blood pressure 124/58, saturating 97% on room air. Weight on the bed scale today is not recorded. GENERAL: The patient is seen awake, alert, and oriented lying in bed in no distress. HEENT: Extraocular muscles are intact. Pupils are round and reactive to light. Dentition is very poor. Tongue is moist. NECK: Supple. He has a tunneled right IJ hemodialysis catheter. HEART: Sounds are regular S1, S2. LUNGS: Clear to auscultation bilaterally with no rales or rhonchi. EXTREMITIES: Show prominent muscle wasting, but there is no edema nor cyanosis. ABDOMEN: Prominent and protuberant, but there is no tenderness. NEUROLOGIC: He is awake, alert, cooperative, and oriented x3. SKIN: Warm and dry. LABORATORY DATA: White count 7.6, hemoglobin 8.9, platelets 101,000. Sodium 139, potassium 4.4, magnesium 1.7, transferrin saturation 43%. Albumin 2.2. INPATIENT MEDICATIONS: Reviewed by myself. I note no medication changes over the past day. His metoprolol succinate is on hold. He received two runs of magnesium sulfate 1 gram IV yesterday. His Lipitor was also stopped. PROBLEMS: 1. Acute renal failure superimposed on chronic kidney disease (CKD) stage IIIB. The patient had a baseline creatinine of around 2.0. He has been in prolonged acute renal failure requiring hemodialysis for several weeks now. First hemodialysis treatment was on 04/30/2021, and he continues to be dialysis-dependent at this time, and he is on a Tuesday, , Tuesday schedule. His electrolytes and volume status are acceptable. Next HD is tomorrow. 2. IgA nephropathy. The patient is on a dose of prednisone 10 mg. I am making no changes. 3. Anemia of end-stage renal disease. His iron stores are adequate. He continues on Aranesp. Target hemoglobin is 10 to 11. 4. Thrombocytopenia - platelets counts overall have improved since early April. MTDD
[2021-05-25 14:00] VITALS: BP 130/64
--- NOTE | 2021-05-25 16:13 | IPNPDOC ---
Date Seen The patient was seen on 05/25/21. Progress Note SUBJECTIVE: Patient was seen and examined at bedside this morning. , Doing well. States no acute events overnight. Asymptomatic slightly bradycardic to 50 overnight during sleep. Does not report chest pain, palpitations, shortness of breath. OBJECTIVE PHYSICAL EXAMINATION: VITAL SIGNS: please see below General: NAD, comfortable. She appears fatigued. HEENT: PERRLA, EOMI, sclerae clear Neck: supple, normal ROM, no JVD Respiratory: lungs CTAB, no wheeze, no rales, no crackles CVS: RRR, normal S1, S2, no murmurs Abdo: soft, no masses, no hepatosplenomegaly, BS+, no rebound tenderness Extremities: no edema, pulses 2+ MSK: no joint deformities, normal ROM Neuro: no focal neuro deficits, moving all 4 extremities, CN2-12 intact. Strength 5/5 in all 4 extremities. No nystagmus. Psych: calm, cooperative, AAO x 3 LABORATORY DATA, IMAGING STUDIES, MICROBIOLOGY: Please see below. Echocardiogram: Echo from 05/01/21: 1. Study is of fair technical quality, patient is in atrial flutter with controlled rate. 2. Normal LV size with mild LVH, low normal LV systolic function with estimated EF around 50% to 55%. 3. Dilated hypokinetic right ventricle. 4. Prominent aortic sclerosis resulting in approximately moderate aortic stenosis (mean gradient 20 mmHg) and mild aortic insufficiency. 5. Likely status post mitral valve annuloplasty resulting in mild mitral stenosis (mean gradient 5 mmHg). 6. Very high central venous pressure and moderately severe pulmonary hypertension. 7. At least moderate tricuspid insufficiency. 8. Dilated pulmonary artery. DVT prophylaxis ordered?: on warfarin ASSESSMENT AND PLAN: PROBLEMS: # Weakness with multiple falls at home - will likely require placement to rehab - PT recommends home with services at this time, but I do not believe this to be a practical option given frequent readmissions from home for same # ESRD on HD 2/2 IgA nephropathy. - HD on Tue//Tue, started on 05/01/21 - Dr. Hobson consulted - continue steroid therapy - avoid nephrotoxins # Cirrhosis, etiology unclear - Continue supportive care - fu with GI outpatiet #Hx of C diff - reviewed records from previous admission - completed course of dificid on 05/10/21 - no longer having diarrhea # Thrombocytopenia 2/2 liver cirrhosis - daily CBC CAD - hx CABG - Continue statin, beta constantin - monitor on Tele. Atrial fibrillation with slow ventricular rate - no AC due to frequent GI bleeds/falls - check nocturnal oximetry - EKG showing afib, bifascular block, previously seen on EKG in 04/2021 - need outpaitent ischemic workup - is asymptomatic during periods of bradycardia - hold metoprolol - d/w Dr. Morejon. No indication for pacemaker as patient is not presenting with symptomatic bifascicular blocl, slow afib - patient to see Dr. Olivares in clinic on DC. BPH - c/w flomax - c/w finasteride Hypothyroidism - Continue levothyroxine. Neuropathy - Continue gabapentin. Essential Hypertension - holding metoprolol given bradycardia DVT prophylaxis. Will add heparin. VS, I&O, 24H, Fishbone Vital Signs/I&O Vital Signs Date Time Temp Pulse Resp B/P (MAP) Pulse Ox O2 Delivery O2 Flow Rate FiO2 05/25/21 14:00 97.2 72 18 130/64 (86) 100 Room Air I&O- Last 24 Hours up to 6 AM 05/25/21 06:00 Intake Total 1430 ml Output Total 0 ml Balance 1430 ml Laboratory Data Microbiology Microbiology 05/23/21 Urine Culture - Final, Complete Enterobacter Cloacae Complex BAR PURCELL MD May 25, 2021 16:13
[2021-05-25 17:15] LABS: HEMATOCRIT 28.7 % (42.0-52.0); MEAN CORPUSCULAR HEMOGLOBIN 31.8 pg (27.0-33.0); MEAN CORPUSCULAR HGB CONC 31.4 g/dl (32.0-36.5); MEAN CORPUSCULAR VOLUME 101.4 fl (80.0-96.0); PLATELET COUNT, AUTOMATED 123 10^3/uL (150-450); RED BLOOD COUNT 2.83 10^6/uL (4.30-6.10); WHITE BLOOD COUNT 8.7 10^3/uL (4.0-10.0)
[2021-05-25 17:51] LABS: ALBUMIN 2.5 GM/DL (3.2-5.2); BILIRUBIN,TOTAL 0.2 MG/DL (0.2-1.0); CALCIUM LEVEL 7.9 MG/DL (8.8-10.2); CREATININE FOR GFR 4.39 MG/DL (0.70-1.30); MAGNESIUM LEVEL 2.3 MG/DL (1.8-2.4); POTASSIUM SERUM 4.7 MEQ/L (3.5-5.1); TOTAL PROTEIN 5.6 GM/DL (6.4-8.2)
[2021-05-25 18:11] LABS: LYMPHOCYTES 4 % (16-44); MONOCYTES 4 % (0-5); NEUTROPHILS 92 % (28-66); PLATELET ESTIMATE DECREASED (NORMAL)
[2021-05-25] MEDS: RAMELTEON 8 MG TAB (ROZEREM) PO SCH (20:29)
[2021-05-25] MEDS: cefTRIAXone SOD 1 GM in D5W MINI-BAG PLUS 50 ML IV SCH (20:29)
[2021-05-25] MEDS: GABAPENTIN 100 MG CAP PO SCH (20:30)
[2021-05-25 22:00] VITALS: BP 119/60
[2021-05-26 03:35] VITALS: BP 138/66
[2021-05-26 05:03] VITALS: BP 137/64
[2021-05-26] MEDS: LEVOTHYROXINE 88MCG TABLET (0.088 MG) PO SCH (06:42)
[2021-05-26] MEDS: TAMSULOSIN 0.4 MG CAP PO SCH (06:43)
[2021-05-26] MEDS: predniSONE 10 MG TAB PO SCH (06:43)
[2021-05-26] MEDS: FINASTERIDE 5 MG TAB PO SCH (06:43)
[2021-05-26] MEDS: HEPARIN SOD (PORCINE) 5000UNITS/ML 1ML VIAL/SYRINGE SC SCH ×3 (06:48→21:10)
[2021-05-26] MEDS ORDERED: SODIUM CHLORIDE 0.9% 1000ML IV PRN (07:00)
[2021-05-26] MEDS ORDERED: METOPROLOL TART 12.5 MG PER 1/2 TAB PO SCH (09:00)
[2021-05-26] MEDS: METOPROLOL TART 12.5 MG PER 1/2 TAB PO SCH ×2 (09:00→16:32)
[2021-05-26 12:19] LABS: HEMATOCRIT 28.9 % (42.0-52.0); HEMOGLOBIN 9.3 g/dl (13.5-17.5); MEAN CORPUSCULAR HEMOGLOBIN 31.8 pg (27.0-33.0); MEAN CORPUSCULAR HGB CONC 32.2 g/dl (32.0-36.5); PLATELET COUNT, AUTOMATED 130 10^3/uL (150-450); RED BLOOD COUNT 2.92 10^6/uL (4.30-6.10); WHITE BLOOD COUNT 11.1 10^3/uL (4.0-10.0)
--- NOTE | 2021-05-26 12:33 | IPNPDOC ---
Date Seen The patient was seen on 05/26/21. Progress Note SUBJECTIVE: Patient was seen and examined at bedside this morning. , Doing well. States no acute events overnight. Several pauses overnight, longest at 2.08 seconds. Asymptomatic. Does not report chest pain, palpitations, shortness of breath. OBJECTIVE PHYSICAL EXAMINATION: VITAL SIGNS: please see below General: NAD, comfortable. She appears fatigued. HEENT: PERRLA, EOMI, sclerae clear Neck: supple, normal ROM, no JVD Respiratory: lungs CTAB, no wheeze, no rales, no crackles CVS: RRR, normal S1, S2, no murmurs Abdo: soft, no masses, no hepatosplenomegaly, BS+, no rebound tenderness Extremities: no edema, pulses 2+ MSK: no joint deformities, normal ROM Neuro: no focal neuro deficits, moving all 4 extremities, CN2-12 intact. Strength 5/5 in all 4 extremities. No nystagmus. Psych: calm, cooperative, AAO x 3 LABORATORY DATA, IMAGING STUDIES, MICROBIOLOGY: Please see below. Echocardiogram: Echo from 05/01/21: 1. Study is of fair technical quality, patient is in atrial flutter with controlled rate. 2. Normal LV size with mild LVH, low normal LV systolic function with estimated EF around 50% to 55%. 3. Dilated hypokinetic right ventricle. 4. Prominent aortic sclerosis resulting in approximately moderate aortic stenosis (mean gradient 20 mmHg) and mild aortic insufficiency. 5. Likely status post mitral valve annuloplasty resulting in mild mitral stenosis (mean gradient 5 mmHg). 6. Very high central venous pressure and moderately severe pulmonary hypertension. 7. At least moderate tricuspid insufficiency. 8. Dilated pulmonary artery. DVT prophylaxis ordered?: on warfarin ASSESSMENT AND PLAN: PROBLEMS: # Weakness with multiple falls at home - will likely require placement to rehab - PT recommends home with services at this time, but I do not believe this to be a practical option given frequent readmissions from home for same # ESRD on HD 2/2 IgA nephropathy. - HD on Tue//Tue, started on 05/01/21 - Dr. Hobson consulted - continue steroid therapy - avoid nephrotoxins # Cirrhosis, etiology unclear - Continue supportive care - fu with GI outpatiet #Hx of C diff - reviewed records from previous admission - completed course of dificid on 05/10/21 - no longer having diarrhea # Thrombocytopenia 2/2 liver cirrhosis - daily CBC # CAD - hx CABG - Continue statin, beta constantin - monitor on Tele. Atrial fibrillation with slow ventricular rate - no AC due to frequent GI bleeds/falls - check nocturnal oximetry - EKG showing afib, bifascular block, previously seen on EKG in 04/2021 - need outpatient ischemic workup - is asymptomatic during periods of bradycardia - hold metoprolol - d/w Dr. Morejon on 05/25/21. No indication for pacemaker as patient is not presenting with symptomatic bifascicular blocl, slow afib - overnight on 05/26/21, had several pauses on telemetry, longest lasting 2.08 seconds, with bradycardia to 45. - i discussed the pauses with the patient's casting machine operator, Dr. Olivares. Given that the patient is asymptomatic, and is not having significantg pauses during the day, there is not indication for pacemaker. He will see patient in the clinic. While it is possible that the patient is experiencing weakness 2/2 bradycardia, it is not possible to definitively attribute the two. BPH - c/w flomax - c/w finasteride Hypothyroidism - Continue levothyroxine. Neuropathy - Continue gabapentin. Essential Hypertension - holding metoprolol given bradycardia DVT prophylaxis. heparin q8h Dispo: I believe that patient is unsafe for discharge home, and has a high risk of readmission due to deconditioning. The patient will be made ALC status. PFS has been consulted to assist us with placement to care facility. VS, I&O, 24H, [facility] Vital Signs/I&O Vital Signs Date Time Temp Pulse Resp B/P (MAP) Pulse Ox O2 Delivery O2 Flow Rate FiO2 05/26/21 05:03 97.2 68 20 137/64 (88) 97 Room Air I&O- Last 24 Hours up to 6 AM 05/26/21 06:00 Intake Total 1960 ml Output Total 0 ml Balance 1960 ml Laboratory Data 24H LABS Laboratory Tests 2 05/25/21 16:58: Immature Granulocyte % (Auto) , Neutrophils (%) (Auto) , Nucleated Red Blood Cells % (auto) 0.6H, Neutrophils 92H, Lymphocytes (Manual) 4L, Monocytes (Manual) 4, Platelet Estimate DECREASED, Anion Gap 8, Glomerular Filtration Rate 14.0L, Calcium Level 7.9L, Magnesium Level 2.3, Total Bilirubin 0.2, Aspartate Amino Transf (AST/SGOT) 19, Alanine Aminotransferase (ALT/SGPT) 34, Alkaline Phosphatase 128H, Total Protein 5.6L, Albumin 2.5L, Albumin/Globulin Ratio 0.8 05/26/21 11:56: CBC/BMP Laboratory Tests 05/25/21 16:58 Microbiology Microbiology 05/23/21 Urine Culture - Final, Complete Enterobacter Cloacae Complex BAR PURCELL MD May 26, 2021 12:33
[2021-05-26 12:55] LABS: ALBUMIN 2.6 GM/DL (3.2-5.2); ALT/SGPT 35 U/L (12-78); BILIRUBIN,TOTAL 0.4 MG/DL (0.2-1.0); BLOOD UREA NITROGEN 6 MG/DL (7-18); CALCIUM LEVEL 8.2 MG/DL (8.8-10.2); CARBON DIOXIDE LEVEL 27 MEQ/L (21-32); CHLORIDE LEVEL 107 MEQ/L (98-107); CREATININE FOR GFR 0.88 MG/DL (0.70-1.30); GLOMERULAR FILTRATION RATE > 60.0 (>42); GLUCOSE, FASTING 109 MG/DL (70-100); MAGNESIUM LEVEL 2.1 MG/DL (1.8-2.4); SODIUM LEVEL 140 MEQ/L (136-145); TOTAL PROTEIN 6.2 GM/DL (6.4-8.2)
[2021-05-26 13:09] LABS: ANISOCYTOSIS 1+; BASOPHILS 1 % (0-1); LYMPHOCYTES 4 % (16-44); METAMYELOCYTES 2 % (0-0); MONOCYTES 6 % (0-5); MYELOCYTES 2 % (0-0); NEUTROPHILS 84 % (28-66); PLATELET ESTIMATE DECREASED (NORMAL)
[2021-05-26] MEDS ORDERED: AMIODARONE HCL 150 MG in IV 1 EA IV ONE (14:20)
[2021-05-26 15:02] VITALS: BP 141/64
[2021-05-26] MEDS ORDERED: METOPROLOL SUCC *XL* 12.5MG PER 1/2 TAB (TopROL *XL*) PO SCH (15:13)
[2021-05-26 15:35] LABS: CALCIUM LEVEL 8.7 MG/DL (8.8-10.2); CREATININE FOR GFR 1.85 MG/DL (0.70-1.30); GLOMERULAR FILTRATION RATE 37.8 (>42); MAGNESIUM LEVEL 1.9 MG/DL (1.8-2.4); POTASSIUM SERUM 4.2 MEQ/L (3.5-5.1); TROPONIN I 0.04 NG/ML (< 0.10)
--- NOTE | 2021-05-26 18:45 | IPN ---
NEPHROLOGY PROGRESS NOTE DATE: 05/26/2021 SUBJECTIVE: The patient was seen and examined this morning in the Hemodialysis Unit receiving his treatment. Today [birth year] birthday. He is in good spirits. He denies any complaints. Dialysis has been uneventful. He did have a fall in the bathroom, he reports, and scraped his left arm. OBJECTIVE: PHYSICAL EXAMINATION: VITAL SIGNS: Temperature 97.2, pulse 68, respiratory rate 20, blood pressure 137/64, saturating 100% on room air. INTAKE AND OUTPUT: Intake yesterday was 1,760. Dialysis today removed one liter. Weight in the bed scale today is 70.8 kg. GENERAL APPEARANCE: The patient is seen awake, alert, oriented, comfortable, in the Hemodialysis Unit receiving his treatment, in no distress. HEENT: The extraocular muscles are intact. The tongue is moist. NECK: Supple. Jugular veins are not elevated. CHEST: There is a tunneled hemodialysis catheter in the right chest wall presently in use. HEART: Regular, S1, S2, There is no peripheral edema. There is no dependent edema. LUNGS: Clear to auscultation bilaterally. No crackles, rales or rhonchi. ABDOMEN: Protuberant and obese but soft and there is no tenderness to palpation. EXTREMITIES: Negative for clubbing or cyanosis or edema. He has a dressing on his left arm where he scraped himself after a fall in the bathroom. NEUROLOGICAL: He is oriented x3, at baseline mentation. LABORATORY STUDIES: White count 11.1, hemoglobin 9.3, platelet count 130. Sodium 138, potassium 4.2, bicarbonate 26. CURRENT INPATIENT MEDICATIONS: The patient's medications were reviewed by myself and no changes as compared to yesterday. PROBLEMS: 1. Acute kidney injury superimposed on chronic kidney disease stage 3b baseline creatinine is 2.0. The patient has had renal failure requiring dialysis since April 30, 2021 (date of first hemodialysis treatment). There are no signs of renal recovery. He continues to be dialysis dependent. He is on a Tuesday, , Tuesday schedule. He was dialyzed today with one liter of fluid removed. His electrolytes and volume status are acceptable. 2. IgA nephropathy he has been on a course of steroids, and the dose has been decreased over the past several weeks. He is presently on 10 mg daily. I am making no changes. 3. Anemia of end-stage renal disease his iron stores are adequate. He continues on Aranesp with hemodialysis. 4. Thrombocytopenia - platelet counts continue to improve. His platelets were less than 50 back in April but are now up to 130 on the latest labs today, and he is receiving Heparin with hemodialysis. 5. Deconditioning/weakness with multiple falls - The patient also reports a fall in the bathroom. He is very likely to require placement to rehabilitation. He has had frequent readmissions. 6. Secondary hyperparathyroidism of renal origin we will get a repeat parathyroid hormone level.
[2021-05-26 20:00] VITALS: BP 137/63
[2021-05-26] MEDS: GABAPENTIN 100 MG CAP PO SCH (21:10)
[2021-05-26] MEDS: RAMELTEON 8 MG TAB (ROZEREM) PO SCH (21:10)
[2021-05-27] VITALS (8 sets, daily range): BP systolic 90–132; BP diastolic 51–62
[2021-05-27] MEDS: HEPARIN SOD (PORCINE) 5000UNITS/ML 1ML VIAL/SYRINGE SC SCH ×3 (05:31→21:14)
[2021-05-27] MEDS: LEVOTHYROXINE 88MCG TABLET (0.088 MG) PO SCH (05:32)
[2021-05-27 05:59] LABS: HEMATOCRIT 27.8 % (42.0-52.0); HEMOGLOBIN 8.8 g/dl (13.5-17.5); MEAN CORPUSCULAR HEMOGLOBIN 31.9 pg (27.0-33.0); MEAN CORPUSCULAR HGB CONC 31.7 g/dl (32.0-36.5); MEAN CORPUSCULAR VOLUME 100.7 fl (80.0-96.0); PLATELET COUNT, AUTOMATED 135 10^3/uL (150-450); RED BLOOD COUNT 2.76 10^6/uL (4.30-6.10); WHITE BLOOD COUNT 9.8 10^3/uL (4.0-10.0)
[2021-05-27 06:24] LABS: CALCIUM LEVEL 8.1 MG/DL (8.8-10.2); CREATININE FOR GFR 2.7 MG/DL (0.70-1.30); GLOMERULAR FILTRATION RATE 24.5 (>42); MAGNESIUM LEVEL 1.8 MG/DL (1.8-2.4); POTASSIUM SERUM 3.8 MEQ/L (3.5-5.1)
[2021-05-27 07:29] LABS: PHOSPHORUS LEVEL 2.9 MG/DL (2.5-4.9)
--- NOTE | 2021-05-27 08:22 | ECGEPIP ---
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
--- NOTE | 2021-05-27 08:23 | ECGEPIP ---
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
[2021-05-27] MEDS: FINASTERIDE 5 MG TAB PO SCH (09:20)
[2021-05-27] MEDS: METOPROLOL TART 12.5 MG PER 1/2 TAB PO SCH ×2 (09:20→21:00)
[2021-05-27] MEDS: TAMSULOSIN 0.4 MG CAP PO SCH (09:20)
[2021-05-27] MEDS: predniSONE 10 MG TAB PO SCH (09:20)
[2021-05-27 09:34] LABS: TOTAL 25(OH) VITAMIN D 23.7 NG/ML (30.0-100.0)
--- NOTE | 2021-05-27 09:45 | CR ---
CONSULTATION DATE: 05/27/2021 REFERRING PHYSICIAN: Oleg Ascencio MD INDICATION: Wide complex tachycardia. Mr. Gomez is known to me, I actually saw him in consultation almost exactly 1 month ago. He is a pleasant, 75-year-old man who has been chronically followed by my partner, Dr. Rowley. He does have established coronary artery disease, has had atrial fibrillation for many years and during his recent hospitalization was actually found to be in atrial flutter. Unfortunately, during his recent admission in April 2021 with acute renal failure, there has not been any recovery and consequently he still is continued on dialysis. This time, he was admitted because of weakness, apparently he was so weak that he was not able to ambulate and consequently was brought for hospitalization. He was found to be in atrial flutter with wide complex QRS. This is not new, he has chronic bifascicular block. He was initially relatively bradycardic on his chronic dose of low dose beta constantin. There were some concerns but there was never any extreme bradycardia and no pauses at night. I was called yesterday by Dr. Ascencio because it was noted that he had wide complex tachycardia while monitored on telemetry. It was initially suspected to be ventricular tachycardia, but upon review of the EKG strips it becomes obvious that it represents atrial flutter with 2:1 conduction and ventricular rate approximately 160 beats per minute. Patient was completely asymptomatic. After he received low dose beta constantin his heart rate slowed down and throughout the day yesterday he was mostly in 70s which continued overnight and there were no long pauses last night. Patient did not have any awareness of the palpitations or arrhythmia in general. He also denies any chest discomfort or shortness of breath. His dominant complaint remains lower extremity weakness. He said that he was walking perfectly fine until presentation in April when he fell and he has trouble with lower extremity weakness since. He denies any loss of consciousness, he just says that his legs just give out from underneath him. There is no associated pain. PAST MEDICAL HISTORY: 1. Coronary artery disease, history of coronary artery bypass graft in 2008. I am not aware of any recent evaluation for underlying ischemia. 2. Chronic atrial fibrillation/flutter. 3. Arterial hypertension. 4. History of BPH with urinary obstruction. 5. Chronic renal insufficiency that eventually progressed to end-stage renal disease due to IgA nephropathy. 6. Type 2 diabetes. 7. Gout. 8. Dyslipidemia. 9. Hypothyroidism. 10. Obesity. 11. Obstructive sleep apnea. 12. History of diverticulosis. 13. Questionable liver cirrhosis based on CT imaging of the abdomen from April 2021. 14. Diastolic congestive heart failure. 15. 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 SURGICAL HISTORY: Positive for coronary artery bypass graft (CABG), elbow surgery, hernia repair, rhinoplasty, and placement of dialysis catheter. SOCIAL HISTORY: Patient is , lives with his . He used to drink, but denies ever drinking to excess. No recent smoking, but there is a history of prior smoking. FAMILY HISTORY: Noncontributory. REVIEW OF SYSTEMS: He denies any recent fever, chills, nausea, vomiting, or diarrhea in the last few days. No chest pain, no palpitations, no syncope, but he does have frequent falls. No headaches. No peripheral edema. The rest as per history of present illness (HPI), otherwise negative. CURRENT MEDICATIONS: - metoprolol 12.5 twice a day - levothyroxine 88 mcg a day - gabapentin 200 at bedtime - Aranesp 100 mcg IV during hemodialysis - Flomax 0.4 mg a day - finasteride 5 mg a day - prednisone 10 mg a day - heparin 5000 units three times a day - Mylanta 30 mL as needed - Tylenol as needed PHYSICAL EXAMINATION: Mr. Gomez is an elderly man who appears to be in no distress, completely alert, appropriate. Blood pressure 110/56 and has been in similar range, heart rate typically in 70s, he has atrial flutter with variable atrioventricular (AV) block, he is afebrile, saturation is 97% on room air. His current weight was recorded as 72 kg. His jugular venous pressure (JVP) is not high. Lungs are clear bilaterally, I do not appreciate any wheezing, crackles, or rhonchi. There is a dialysis catheter through right internal jugular (IJ). Heart exam reveals irregular rhythm with rate about 70 beats per minute, there is a systolic ejection murmur best heard over the aortic valve, approximately 3/6 intensity with easily audible closing sound. There is fairly quiet diastolic murmur over the aortic valve and precordial area. I do not appreciate any distinct gallop or rub. Abdomen is protuberant but soft, no abdominal tenderness is noted, no guarding. Extremities are free of edema. I have a hard time palpating his peripheral pulses. No atrophic defect of the lower extremities are noted. LABORATORIES: As of this morning, sodium 140, potassium 3.8, BUN 17, creatinine 2.7, and glucose 84, calcium 8.1, magnesium 1.8. During his current admission, his troponin was initially 0.14, has been trending down since. CBC as of today: WBC count 9.8, hemoglobin 8.8, hematocrit 27, and platelet count 135,000. He had rheumatologic testing during his recent admission which was positive for CRISPIN screen and NURSE ORTHO, IgG antibodies. There was also elevated quantitative kappa and lambda chains. His INR was not checked this current admission. ECG revealed presence of atrial flutter with bifascicular block and no distinct ST-T abnormalities. IMAGING: Chest x-ray reveals evidence for prior open heart surgery and was suggestive of pulmonary hypertension and small effusions cannot be ruled out. Head CT did not reveal any acute intracerebral abnormality. There was evidence for atrophy and periventricular leukomalacia consistent with chronic small vessel disease. ASSESSMENT AND PLAN: Mr. Gomez is an elderly man who has advanced vascular disease with history of coronary artery bypass graft (CABG), he has also combined valvular disease with combined aortic stenosis (moderate) and insufficiency (mild). He does have also significant tricuspid insufficiency and moderate to severe pulmonary hypertension. This is based on echocardiogram obtained during his prior admission in April when he was initiating hemodialysis and at that point volume overloaded. At this point, it appears that he will remain on dialysis for the rest of his life. I was asked to see him because of wide complex tachycardia which undoubtedly represented atrial flutter with rapid ventricular response in the setting of bifascicular block. Since he has been on low dose beta constantin it seems that this has not been an issue. I do not believe that any further alterations in management at this point is warranted and I would keep him on current dose of beta constantin. I do recommend another day or two of monitoring to make sure that we do not see any obvious recurrences of bradycardia. As far as the anticoagulation is concerned, he remains thrombocytopenic, he has been receiving heparin during dialysis and he is quite anemic. I do believe that it is probably better not to start anticoagulation in this setting until we have a better idea about the etiology of his condition. His platelet count is steadily improving but I am concerned that during 02/27/2021 blood work his kappa and lambda chains were very elevated. I wonder whether there is a possibility that he has some bone marrow disorder. This should be looked at in more detail. But in the long horizon, once we see further improvement in platelets if it occurs I would recommend to restart anticoagulation if he is guaiac negative. He had recent Clostridium (C) difficile colitis but denies any recent diarrhea. As far as coronary artery disease is concerned, he had mild troponin elevation during his April admission when he had C. difficile colitis but he never had any chest discomfort. This can be reevaluated on outpatient basis. As far as congestive heart failure is concerned, he does have significant pulmonary hypertension and valvular disease but at this point volume is principally controlled by hemodialysis. This should make management easier. And finally, his dominant complaint has to do with lower extremity weakness. I am not completely certain about the etiology, I would suggest to obtain vascular screen to see whether he has peripheral vascular disease (PVD), which I am almost certain that he does, but he has no claudications and the onset of symptoms was relatively recent, so I have to suspect that there is some form of neurological process involved. I think that further evaluation in that field is certainly warranted. MTDD
--- NOTE | 2021-05-27 10:49 | REP ---
INDICATION: suspect PAD COMPARISON: None. TECHNIQUE: Real time whittington scale and Duplex Doppler evaluation of the bilateral lower extremity arterial vasculature using linear high frequency transducer. FINDINGS: Whittington scale and duplex doppler images demonstrate severe plaquing diffusely bilaterally. The bilateral superficial femoral arteries demonstrate severe multilevel multifocal stenoses. The right anterior tibial artery is occluded diffusely. The left anterior tibial artery is occluded proximally and reconstitutes at the ankle. There are diffuse monophasic waveforms distal to the common femoral arteries bilaterally. A focal area of fluid posterior to the right medial malleolus lies along a tendon and may represent a ganglion cyst. This measures 1.5 x 1.0 x 1.2 cm. Peak systolic velocities (cm/sec) Common femoral artery: Right 153; Left 139 Profunda femoris: Right 181; Left 201 SFA (proximal): Right 235; Left 122 SFA (mid): Right 219; Left 69 SFA (distal): Right 114; Left 280 Popliteal artery: Right 48; Left 56 KEILY (prox.): Right occluded; Left occluded Tibioperoneal trunk: Right 74; Left 71 BURR BENCH OPERATOR (prox.): Right 102; Left 104 BURR BENCH OPERATOR (distal): Right 76; Left 31 KEILY (distal): Right occluded; Left 14 IMPRESSION: Severe plaquing diffusely bilaterally. Multifocal severe stenoses involving the bilateral superficial femoral arteries. The anterior tibial arteries are occluded bilaterally. There is reconstitution the left anterior tibial artery at the ankle. <Electronically signed by Ash Whittington > 05/27/21 [id number]
[2021-05-27 10:57] LABS: PTH INTACT 190.2 PG/ML (18.5-88.0)
--- NOTE | 2021-05-27 13:15 | REP ---
INDICATION: leg weakness, cannot walk. COMPARISON: None. TECHNIQUE: Sagittal and axial T1 and T2-weighted scans are acquired in the usual fashion with and without fat saturation. Sequences include spin echo, turbo spin-echo, and STIR imaging sequences. FINDINGS: There is an intervertebral disc visible at S1-S2 which is partially fused. Cortical and medullary bone signal intensity are normal. Vertebral body heights are preserved. There are mild degenerative disc related marrow changes on either side of the L5-S1 disc and there is mild reactive marrow change associated with a Schmorl's node at the superior endplate of the L4 vertebral body on the left side. The tip of the conus medullaris is normal in the patient's position and appearance at the L1 level. Normal caliber aorta is seen. No extra vertebral abnormality is appreciated. There is mild motion artifact on the T2 weighted axial sequence. Axial and sagittal images at L1-L2 show no evidence of disc protrusion, spinal stenosis, or foraminal narrowing. At L2-L3, the posterior disc margin is intact. At At L3-L4, there is no evidence of disc protrusion, spinal stenosis, or foraminal narrowing. There is minimal facet hypertrophy. At L4-5, there is mild facet hypertrophy bilaterally. Mild disc space narrowing is seen in there is mild diffuse disc bulging. No spinal stenosis or foraminal narrowing is seen. At L5-S1, there is degenerative disc narrowing and decreased signal intensity. There is mild diffuse disc bulging. There is mild posterior facet hypertrophy bilaterally. No spinal stenosis or foraminal narrowing. IMPRESSION: Degenerative spondylosis changes most pronounced at L5-S1. Osteoarthritic facet hypertrophy is also present bilaterally at L4-5 and to a lesser extent, at L3-4. <Electronically signed by Domo Mendieta > 05/27/21 [id number]
--- NOTE | 2021-05-27 16:49 | IPNPDOC ---
Date Seen The patient was seen on 05/27/21. Progress Note SUBJECTIVE: Patient was seen and examined at bedside this morning. , Doing well. States no acute events overnight. Several pauses overnight, longest at 2.08 seconds. Asymptomatic. Does not report chest pain, palpitations, shortness of breath. OBJECTIVE PHYSICAL EXAMINATION: VITAL SIGNS: please see below General: NAD, comfortable. She appears fatigued. HEENT: PERRLA, EOMI, sclerae clear Neck: supple, normal ROM, no JVD Respiratory: lungs CTAB, no wheeze, no rales, no crackles CVS: RRR, normal S1, S2, no murmurs Abdo: soft, no masses, no hepatosplenomegaly, BS+, no rebound tenderness Extremities: no edema, pulses 2+ MSK: no joint deformities, normal ROM Neuro: no focal neuro deficits, moving all 4 extremities, CN2-12 intact. Strength 5/5 in all 4 extremities. No nystagmus. Psych: calm, cooperative, AAO x 3 LABORATORY DATA, IMAGING STUDIES, MICROBIOLOGY: Please see below. Bilateral arterial doppler (05/27/21): IMPRESSION: Severe plaquing diffusely bilaterally. Multifocal severe stenoses involving the bilateral superficial femoral arteries. The anterior tibial arteries are occluded bilaterally. There is reconstitution the left anterior tibial artery at the ankle. MR Lumbar Spine (05/27/21): FINDINGS: There is an intervertebral disc visible at S1-S2 which is partially fused. Cortical and medullary bone signal intensity are normal. Vertebral body heights are preserved. There are mild degenerative disc related marrow changes on either side of the L5-S1 disc and there is mild reactive marrow change associated with a Schm orl's node at the superior endplate of the L4 vertebral body on the left side. The tip of the conus medullaris is normal in the patient's position and appearance at the L1 level. Normal caliber aorta is seen. No extra vertebral abnormality is appreciated. There is mild motion artifact on the T2 weighted axial sequence. Axial and sagittal images at L1-L2 show no evidence of disc protrusion, spinal stenosis, or foraminal narrowing. At L2-L3, the posterior disc margin is intact. At At L3-L4, there is no evidence of disc protrusion, spinal stenosis, or foraminal narrowing. There is minimal facet hypertrophy. At L4-5, there is mild facet hypertrophy bilaterally. Mild disc space narrowing is seen in there is mild diffuse disc bulging. No spinal stenosis or foraminal narrowing is seen. At L5-S1, there is degenerative disc narrowing and decreased signal intensity. There is mild diffuse disc bulging. There is mild posterior facet hypertrophy bilaterally. No spinal stenosis or foraminal narrowing. IMPRESSION: Degenerative spondylosis changes most pronounced at L5-S1. Osteoarthritic facet hypertrophy is also present bilaterally at L4-5 and to a lesser extent, at L3-4. Echocardiogram: Echo from 05/01/21: 1. Study is of fair technical quality, patient is in atrial flutter with controlled rate. 2. Normal LV size with mild LVH, low normal LV systolic function with estimated EF around 50% to 55%. 3. Dilated hypokinetic right ventricle. 4. Prominent aortic sclerosis resulting in approximately moderate aortic stenosis (mean gradient 20 mmHg) and mild aortic insufficiency. 5. Likely status post mitral valve annuloplasty resulting in mild mitral stenosis (mean gradient 5 mmHg). 6. Very high central venous pressure and moderately severe pulmonary hypertension. 7. At least moderate tricuspid insufficiency. 8. Dilated pulmonary artery. DVT prophylaxis ordered?: on warfarin ASSESSMENT AND PLAN: PROBLEMS: # Weakness with multiple falls at home/PAD - will likely require placement to rehab - PT recommends home with services at this time, but I do not believe this to be a practical option given frequent readmissions from home for same - MR Lumbar spine without spinal stenosis, acute spinal processes - Bilateral arterial dopplers show chronic plaquing, anterior tibial arteries occluded. Limbs are warm, non dusky. D/w Dr. Brito. Appropriate for outpatient workup. Will be happy to see in clinic. - with regard to possible neuropathy, I have requested a consult from Dr. De Souza for assistance. Will check B12, B1, folate, HbA1c, copper levels. - labs from 03/11 reviewed. Elevated kappa and lambda chains are elevated, but ratio is acceptable in setting of CKD per Dr. Marinelli. No Bence Nelson proteins in urine, no MGUS in UPEP. Atrial fibrillation with slow ventricular rate - no AC due to frequent GI bleeds/falls - check nocturnal oximetry - EKG showing afib, bifascular block, previously seen on EKG in 04/2021 - need outpatient ischemic workup - is asymptomatic during periods of bradycardia - hold metoprolol - d/w Dr. Morejon on 05/25/21. No indication for pacemaker as patient is not presenting with symptomatic bifascicular blocl, slow afib - overnight on 05/26/21, had several pauses on telemetry, longest lasting 2.08 seconds, with bradycardia to 45. - i discussed the pauses with the patient's operations/dispatch, Dr. Olivares. Given that the patient is asymptomatic, and is not having significantg pauses during the day, there is not indication for pacemaker. He will see patient in the clinic. While it is possible that the patient is experiencing weakness 2/2 bradycardia, it is not possible to definitively attribute the two. Passive wish - consulted Dr. Pearson - one to one sitter until eval by psychiatrist. # ESRD on HD 2/2 IgA nephropathy. - HD on Tue//Tue, started on 05/01/21 - Dr. Hobson consulted - continue steroid therapy - avoid nephrotoxins # Cirrhosis, etiology unclear - Continue supportive care - fu with GI outpatiet #Hx of C diff - reviewed records from previous admission - completed course of dificid on 05/10/21 - no longer having diarrhea # Thrombocytopenia 2/2 liver cirrhosis - daily CBC # CAD - hx CABG - Continue statin, beta constantin - monitor on Tele. BPH - c/w flomax - c/w finasteride Hypothyroidism - Continue levothyroxine. Neuropathy - Continue gabapentin. Essential Hypertension - holding metoprolol given bradycardia DVT prophylaxis. heparin q8h Dispo: I believe that patient is unsafe for discharge home, and has a high risk of readmission due to deconditioning. The patient will be made ALC status. PFS has been consulted to assist us with placement to care facility. VS, I&O, 24H, [place] Vital Signs/I&O Vital Signs Date Time Temp Pulse Resp B/P (MAP) Pulse Ox O2 Delivery O2 Flow Rate FiO2 05/27/21 12:03 96.1 67 18 125/62 (83) 95 Room Air I&O- Last 24 Hours up to 6 AM 05/27/21 06:00 Intake Total 720 ml Output Total 1000 ml Balance -280 ml Laboratory Data 24H LABS Laboratory Tests 2 05/27/21 05:41: Nucleated Red Blood Cells % (auto) 0.9H, Anion Gap 6L, Glomerular Filtration Rate 24.5L, Calcium Level 8.1L, Phosphorus Level 2.9, Magnesium Level 1.8, Parathyroid Hormone (Intact) 190.2H CBC/BMP Laboratory Tests 05/27/21 05:41 Microbiology Microbiology 05/23/21 Urine Culture - Final, Complete Enterobacter Cloacae Complex BAR PURCELL MD May 27, 2021 16:49
[2021-05-27 18:16] LABS: HEMOGLOBIN A1c 6.4 %
--- NOTE | 2021-05-27 19:22 | IPN ---
NEPHROLOGY PROGRESS NOTE DATE: 05/27/2021 SUBJECTIVE: The patient was seen and examined this morning at the bedside in the Intensive Care Unit. He was recently seen by Cardiology because of wide complex tachycardia. He has not had any changes in his medications. His heart rate has been controlled with low dose beta constantin. He was dialyzed yesterday and one liter of fluid was removed. He is depressed that he spent his birthday in the hospital but tells me he is concentrating on getting better. He has no complaints but he is very frustrated by his generalized weakness and history of falls and he is getting further workup with an MRI of the lumbosacral spine today. OBJECTIVE: VITAL SIGNS: Temperature 96.1, pulse 67, respiratory rate 18, blood pressure 125/62, saturating 95% on room air. INTAKE AND OUTPUT: Intake yesterday was one liter. Dialysis yesterday removed on liter. Weight in the bed scale today is 72 kg. GENERAL APPEARANCE: The patient is seen lying in bed, awake, alert, oriented, comfortable, in no apparent distress, in good spirits at the time of my visit. HEENT: The extraocular muscles are intact. Tongue is moist. NECK: Supple. Jugular veins are not elevated. There is a tunneled hemodialysis catheter present in the right IJ. HEART: Irregular. There is a systolic murmur. ABDOMEN: Soft and nontender and protuberant. EXTREMITIES: Negative for edema. There is decreased muscle mass in the legs. NEUROLOGICAL: He is awake, alert and oriented and moves all four extremities on command. LABORATORY STUDIES: White count 9.8, hemoglobin 8.8, platelet count 135. Sodium 140, potassium 3.8, bicarbonate 28, BUN 17, creatinine 2.7, phosphorous 2.9, magnesium 1.8, parathyroid hormone level 190. IMAGING: The patient had an arterial Doppler of the legs that showed severe plaquing diffusing bilaterally with multifocal severe stenoses involving the bilateral superficial femoral arteries and occlusion of the anterior tibial arteries. CURRENT INPATIENT MEDICATIONS: The patient's medications were reviewed by myself. I note the patient is off of IV Ceftriaxone. He was started yesterday on Lopressor 12.5 mg p.o. twice daily. The remainder medications are unchanged as compared to yesterday. PROBLEMS: 1. Acute kidney injury superimposed on chronic kidney disease stage 3b - The patient had a baseline creatinine of 2.0. He has IgA nephropathy underlying. He had an acute kidney injury in the setting of C-difficile colitis and dehydration back in April of 2021. He started dialysis on April 30. He continues to be dialysis dependent. His creatinine very recently was around 4 on the bloodwork. He had one chemistry with a very low creatinine (0.8 on May 26) and that is definitely some sort of lab error. I do not think that the patient is in renal recovery at present, but we can skip his next dialysis treatment to see the trend of BUN and creatinine on the bloodwork. 2. Anemia due to chronic renal failure the patient's iron stores are adequate. He continues on Aranesp with hemodialysis. 3. IgA nephropathy - The patient has been on a course of steroids and the dose has been decreased over the past several weeks. He is presently on 10 mg daily. 4. Proteinuria it is very mild. He had a 24-hour urine collection in February of 2021 which showed only 500 mg of protein. He has already had the full workup with serologies and a kidney biopsy. He has had negative SPEP and his serum free light chains (kappa lambda light chains) show a normal ratio given his chronic kidney disease. There is no indication of any sort of myeloma, and I have discussed the same with the Hospitalist. 5. Thrombocytopenia - platelet counts continue to improve. He is receiving Heparin with dialysis. 6. Deconditioning and weakness with multiple falls I note his abnormal arterial Doppler of the legs indicating peripheral arterial disease and he is also pending MRI of the lumbosacral spine. Further evaluation and workup as per Hospitalist Service. 7. Secondary hyperparathyroidism of renal origin the patient's parathyroid hormone level is acceptable range, 190 on the latest labs. His phosphorous is on the low side, but he is not receiving any phosphorous binders which is appropriate.
[2021-05-27] MEDS: GABAPENTIN 100 MG CAP PO SCH (21:14)
[2021-05-27] MEDS: RAMELTEON 8 MG TAB (ROZEREM) PO SCH (21:14)
[2021-05-28] VITALS: BP 157/76
[2021-05-28 04:00] VITALS: BP 109/64
[2021-05-28] MEDS: LEVOTHYROXINE 88MCG TABLET (0.088 MG) PO SCH (06:06)
[2021-05-28] MEDS: HEPARIN SOD (PORCINE) 5000UNITS/ML 1ML VIAL/SYRINGE SC SCH ×3 (06:06→21:53)
[2021-05-28 08:15] VITALS: BP 115/58
[2021-05-28] MEDS: FINASTERIDE 5 MG TAB PO SCH (08:46)
[2021-05-28] MEDS: TAMSULOSIN 0.4 MG CAP PO SCH (08:46)
[2021-05-28] MEDS: predniSONE 10 MG TAB PO SCH (08:46)
[2021-05-28] MEDS: METOPROLOL TART 12.5 MG PER 1/2 TAB PO SCH ×2 (09:00→23:00)
--- NOTE | 2021-05-28 09:01 | ECGEPIP ---
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
[2021-05-28 09:43] LABS: HEMATOCRIT 27.9 % (42.0-52.0); HEMOGLOBIN 8.6 g/dl (13.5-17.5); MEAN CORPUSCULAR HEMOGLOBIN 31.5 pg (27.0-33.0); MEAN CORPUSCULAR HGB CONC 30.8 g/dl (32.0-36.5); MEAN CORPUSCULAR VOLUME 102.2 fl (80.0-96.0); PLATELET COUNT, AUTOMATED 146 10^3/uL (150-450); RED BLOOD COUNT 2.73 10^6/uL (4.30-6.10); WHITE BLOOD COUNT 10.3 10^3/uL (4.0-10.0)
[2021-05-28 10:16] LABS: LYMPHOCYTES 16 % (16-44); METAMYELOCYTES 3 % (0-0); MONOCYTES 3 % (0-5); MYELOCYTES 1 % (0-0); NEUTROPHILS 76 % (28-66)
[2021-05-28 10:17] LABS: PLATELET ESTIMATE NORMAL (NORMAL)
[2021-05-28 10:19] LABS: ALBUMIN 2.3 GM/DL (3.2-5.2); BILIRUBIN,TOTAL 0.3 MG/DL (0.2-1.0); CALCIUM LEVEL 8.3 MG/DL (8.8-10.2); CREATININE FOR GFR 3.37 MG/DL (0.70-1.30); GLOMERULAR FILTRATION RATE 18.9 (>42); MAGNESIUM LEVEL 1.9 MG/DL (1.8-2.4); POTASSIUM SERUM 4.1 MEQ/L (3.5-5.1); TOTAL PROTEIN 5.2 GM/DL (6.4-8.2)
[2021-05-28 11:26] LABS: FOLATE 4.7 NG/ML (>5.4)
[2021-05-28 12:00] VITALS: BP 125/60
--- NOTE | 2021-05-28 15:38 | IPNPDOC ---
Date Seen The patient was seen on 05/28/21. Progress Note SUBJECTIVE: Seen and examined at bedside. Doing well. Pending ARU screen. In good spirits today. No more passive wishes, or SI. Seen by Dr. Pearson on 05/27/21, no need for sitter. Patient declined SSRI. OBJECTIVE PHYSICAL EXAMINATION: VITAL SIGNS: please see below General: NAD, comfortable. She appears fatigued. HEENT: PERRLA, EOMI, sclerae clear Neck: supple, normal ROM, no JVD Respiratory: lungs CTAB, no wheeze, no rales, no crackles CVS: RRR, normal S1, S2, no murmurs Abdo: soft, no masses, no hepatosplenomegaly, BS+, no rebound tenderness Extremities: no edema, pulses 2+ MSK: no joint deformities, normal ROM Neuro: no focal neuro deficits, moving all 4 extremities, CN2-12 intact. Strength 5/5 in all 4 extremities. No nystagmus. Psych: calm, cooperative, AAO x 3 LABORATORY DATA, IMAGING STUDIES, MICROBIOLOGY: Please see below. Bilateral arterial doppler (05/27/21): IMPRESSION: Severe plaquing diffusely bilaterally. Multifocal severe stenoses involving the bilateral superficial femoral arteries. The anterior tibial arteries are occluded bilaterally. There is reconstitution the left anterior tibial artery at the ankle. MR Lumbar Spine (05/27/21): FINDINGS: There is an intervertebral disc visible at S1-S2 which is partially fused. Cortical and medullary bone signal intensity are normal. Vertebral body heights are preserved. There are mild degenerative disc related marrow changes on either side of the L5-S1 disc and there is mild reactive marrow change associated with a Schmorl's node at the superior endplate of the L4 vertebral body on the left side. The tip of the conus medullaris is normal in the patient's position and appearance at the L1 level. Normal caliber aorta is seen. No extra vertebral abnormality is appreciated. There is mild motion artifact on the T2 weighted axial sequence. Axial and sagittal images at L1-L2 show no evidence of disc protrusion, spinal stenosis, or foraminal narrowing. At L2-L3, the posterior disc margin is intact. At At L3-L4, there is no evidence of disc protrusion, spinal stenosis, or foraminal narrowing. There is minimal facet hypertrophy. At L4-5, there is mild facet hypertrophy bilaterally. Mild disc space narrowing is seen in there is mild diffuse disc bulging. No spinal stenosis or foraminal narrowing is seen. At L5-S1, there is degenerative disc narrowing and decreased signal intensity. There is mild diffuse disc bulging. There is mild posterior facet hypertrophy bilaterally. No spinal stenosis or foraminal narrowing. IMPRESSION: Degenerative spondylosis changes most pronounced at L5-S1. Osteoarthritic facet hypertrophy is also present bilaterally at L4-5 and to a lesser extent, at L3-4. Echocardiogram: Echo from 05/01/21: 1. Study is of fair technical quality, patient is in atrial flutter with controlled rate. 2. Normal LV size with mild LVH, low normal LV systolic function with estimated EF around 50% to 55%. 3. Dilated hypokinetic right ventricle. 4. Prominent aortic sclerosis resulting in approximately moderate aortic stenosis (mean gradient 20 mmHg) and mild aortic insufficiency. 5. Likely status post mitral valve annuloplasty resulting in mild mitral stenosis (mean gradient 5 mmHg). 6. Very high central venous pressure and moderately severe pulmonary hypertension. 7. At least moderate tricuspid insufficiency. 8. Dilated pulmonary artery. DVT prophylaxis ordered?: on warfarin ASSESSMENT AND PLAN: PROBLEMS: # Weakness with multiple falls at home/PAD - will likely require placement to rehab - PT recommends home with services at this time, but I do not believe this to be a practical option given frequent readmissions from home for same - MR Lumbar spine without spinal stenosis, acute spinal processes - Bilateral arterial dopplers show chronic plaquing, anterior tibial arteries occluded. Limbs are warm, non dusky. D/w Dr. Brito. Appropriate for outpatient workup. Will be happy to see in clinic. - with regard to possible neuropathy, I have requested a consult from Dr. De Souza for assistance. Will check B12, B1, folate, HbA1c, copper levels. - labs from 03/11 reviewed. Elevated kappa and lambda chains are elevated, but ratio is acceptable in setting of CKD per Dr. Marinelli. No Bence Nelson proteins in urine, no MGUS in UPEP. Atrial fibrillation with slow ventricular rate - no AC due to frequent GI bleeds/falls - check nocturnal oximetry - EKG showing afib, bifascular block, previously seen on EKG in 04/2021 - need outpatient ischemic workup - is asymptomatic during periods of bradycardia - hold metoprolol - d/w Dr. Morejon on 05/25/21. No indication for pacemaker as patient is not presenting with symptomatic bifascicular blocl, slow afib - overnight on 05/26/21, had several pauses on telemetry, longest lasting 2.08 seconds, with bradycardia to 45. - i discussed the pauses with the patient's looper operator, Dr. Olivares. Given that the patient is asymptomatic, and is not having significantg pauses during the day, there is not indication for pacemaker. He will see patient in the clinic. While it is possible that the patient is experiencing weakness 2/2 bradycardia, it is not possible to definitively attribute the two. Passive wish - consulted Dr. Pearson - one to one sitter until eval by psychiatrist. # ESRD on HD 2/2 IgA nephropathy. - HD on Tue//Tue, started on 05/01/21 - Dr. Hobson consulted - continue steroid therapy - avoid nephrotoxins # Cirrhosis, etiology unclear - Continue supportive care - fu with GI outpatiet #Hx of C diff - reviewed records from previous admission - completed course of dificid on 05/10/21 - no longer having diarrhea # Thrombocytopenia 2/2 liver cirrhosis - daily CBC # CAD - hx CABG - Continue statin, beta constantin - monitor on Tele. BPH - c/w flomax - c/w finasteride Hypothyroidism - Continue levothyroxine. Neuropathy - Continue gabapentin. Essential Hypertension - holding metoprolol given bradycardia DVT prophylaxis. heparin q8h Dispo: I believe that patient is unsafe for discharge home, and has a high risk of readmission due to deconditioning. The patient will be made ALC status. PFS has been consulted to assist us with placement to care facility. VS, I&O, 24H, Fishbone Vital Signs/I&O Vital Signs Date Time Temp Pulse Resp B/P (MAP) Pulse Ox O2 Delivery O2 Flow Rate FiO2 05/28/21 12:00 96.6 74 18 125/60 (81) 99 Room Air I&O- Last 24 Hours up to 6 AM 05/28/21 06:00 Intake Total 780 ml Output Total 0 ml Balance 780 ml Laboratory Data 24H LABS Laboratory Tests 2 05/27/21 17:05: Estimated Mean Plasma Glucose 137H, Hemoglobin A1c 6.4 05/28/21 05:50: Immature Granulocyte % (Auto) , Neutrophils (%) (Auto) , Nucleated Red Blood Cells % (auto) 0.4H, Neutrophils 76H, Band Neutrophils 1, Lymphocytes (Manual) 16, Monocytes (Manual) 3, Metamyelocytes 3H, Myelocytes 1H, Platelet Estimate NORMAL 05/28/21 05:55: Anion Gap 8, Glomerular Filtration Rate 18.9L, Calcium Level 8.3L, Magnesium Level 1.9, Total Bilirubin 0.3, Aspartate Amino Transf (AST/SGOT) 20, Alanine Aminotransferase (ALT/SGPT) 35, Alkaline Phosphatase 83, Total Protein 5.2L, Albumin 2.3L, Albumin/Globulin Ratio 0.8, Vitamin B12 Level 218L, Folate 4.7L CBC/BMP Laboratory Tests 05/28/21 05:50 05/28/21 05:55 Microbiology Microbiology 05/23/21 Urine Culture - Final, Complete Enterobacter Cloacae Complex BAR PURCELL MD May 28, 2021 15:38
[2021-05-28 16:00] VITALS: BP 131/62
[2021-05-28 20:00] VITALS: BP 120/56
[2021-05-28] MEDS: RAMELTEON 8 MG TAB (ROZEREM) PO SCH (21:53)
[2021-05-28] MEDS: GABAPENTIN 100 MG CAP PO SCH (21:53)
[2021-05-29] VITALS (15 sets, daily range): BP systolic 100–139; BP diastolic 48–83
[2021-05-29] MEDS: LEVOTHYROXINE 88MCG TABLET (0.088 MG) PO SCH (05:05)
[2021-05-29] MEDS: HEPARIN SOD (PORCINE) 5000UNITS/ML 1ML VIAL/SYRINGE SC SCH (05:06)
[2021-05-29 07:55] LABS: HEMOGLOBIN 8.1 g/dl (13.5-17.5); MEAN CORPUSCULAR HEMOGLOBIN 31.6 pg (27.0-33.0); MEAN CORPUSCULAR HGB CONC 31.2 g/dl (32.0-36.5); MEAN CORPUSCULAR VOLUME 101.6 fl (80.0-96.0); PLATELET COUNT, AUTOMATED 151 10^3/uL (150-450); RED BLOOD COUNT 2.56 10^6/uL (4.30-6.10); WHITE BLOOD COUNT 10.1 10^3/uL (4.0-10.0)
[2021-05-29] MEDS ORDERED: DARBEPOETIN 200MCG/0.4ML *DIALYSIS* SYRINGE (J0882 PER 1MCG) IV SCH (08:20)
[2021-05-29] MEDS ORDERED: SODIUM CHLORIDE 0.9% 1000ML IV PRN (08:20)
[2021-05-29 08:46] LABS: ALBUMIN 2.4 GM/DL (3.2-5.2); BILIRUBIN,TOTAL 0.3 MG/DL (0.2-1.0); CALCIUM LEVEL 8.4 MG/DL (8.8-10.2); CREATININE FOR GFR 3.89 MG/DL (0.70-1.30); MAGNESIUM LEVEL 1.8 MG/DL (1.8-2.4); POTASSIUM SERUM 4.7 MEQ/L (3.5-5.1); TOTAL PROTEIN 5.1 GM/DL (6.4-8.2)
[2021-05-29] MEDS: METOPROLOL TART 12.5 MG PER 1/2 TAB PO SCH ×2 (09:00→21:46)
[2021-05-29] MEDS: FINASTERIDE 5 MG TAB PO SCH (13:35)
[2021-05-29] MEDS: CYANOCOBALAMIN 1,000MCG/ML VIAL (J3420) IM SCH (13:35)
[2021-05-29] MEDS: TAMSULOSIN 0.4 MG CAP PO SCH (13:37)
[2021-05-29] MEDS: FOLIC ACID 1 MG TAB PO SCH (13:37)
[2021-05-29] MEDS: THIAMINE 100 MG TAB PO SCH (13:37)
[2021-05-29] MEDS: predniSONE 10 MG TAB PO SCH (13:37)
--- NOTE | 2021-05-29 14:51 | IPN ---
PROGRESS NOTE DATE: 05/29/2021 SUBJECTIVE: Raúl is seen and examined this morning in the hemodialysis unit receiving his treatment. He is in good spirits. He offers no complaints. His dialysis has been uneventful. Vital signs: Temperature 95.9, pulse 70, respiratory rate 18, blood pressure 117/59, saturating 97% on room air. Hemodialysis today removed 1 liter, weight in the bed scale today is 70.7 kg. General: Patient is seen receiving his dialysis treatment, awake, alert, oriented times four, interactive, conversational, good spirits, no distress. Extraocular muscles are intact. Tongue is moist. Neck is supple. Jugular veins are not elevated. There is a tunneled dialysis catheter in the right chest wall that is presently in use. Heart sounds are regular, no leg edema, no murmur. Lungs are clear to auscultation bilaterally, no crackle or wheeze. Abdomen is soft and nontender. Positive bowel sounds. Extremities show some decrease in muscle mass but no edema. Neurologic: He is awake, alert, oriented times four and at baseline mentation. Moves all four extremities on command. Psychiatric: He is calm and cooperative and in good spirits. LABORATORY DATA: White count 10.1, hemoglobin 8.1, platelet 151, sodium 142, potassium 4.7, bicarbonate 26, BUN 39, creatinine 3.8, magnesium 1.8. INPATIENT MEDICATIONS: Reviewed by myself. I increased the dose of Aranesp with dialysis to 200 mcg. I note he was started on ciprofloxacin 500 mg daily. He was also started on folic acid 1 mg by mouth daily and he was also started on thiamine 100 mg by mouth daily. Remainder of medicines are unchanged as compared to yesterday. PROBLEMS: 1. Acute kidney injury superimposed on chronic kidney disease (CKD) stage 3b. Baseline creatinine was 2.0. Patient has a history of immunoglobulin A (IgA) nephropathy. He had acute kidney injury in the setting of Clostridium (C) difficile colitis and dehydration back in April of 2021. He started dialysis on 04/30/2021. There is no sign of renal recovery. He continues to be dialysis dependent. He was dialyzed today with 1 liter of fluid removed. 2. Anemia due to chronic renal failure. His iron stores are adequate. He continues on Aranesp with dialysis. I increased the dose of Aranesp and I also transfused him 1 unit of blood with dialysis today, and I note primary team has also started him on thiamine and folic acid as levels for both were low. 3. Immunoglobulin A (IgA) nephropathy. He has been on a course of steroids and the dose has been decreased over the past several weeks. He is on 10 mg daily now and I made no changes. 4. Thrombocytopenia. Platelet counts continue to improve since April of 2021. He has been receiving heparin with dialysis. 5. Protein calorie malnutrition. Albumin is only 2.4. We will order Jessicaro for him.
[2021-05-29] MEDS: CIPROFLOXACIN 500MG TABLET PO SCH (16:24)
[2021-05-29] MEDS: IMMUNE GLOBULIN 10% 10 GM, IMMUNE GLOBULIN 10% 40 GM in IV 1 EA IV SCH (21:43)
[2021-05-29] MEDS: GABAPENTIN 100 MG CAP PO SCH (21:46)
[2021-05-29] MEDS: RAMELTEON 8 MG TAB (ROZEREM) PO SCH (21:46)
--- NOTE | 2021-05-29 21:49 | IPNPDOC ---
Date Seen The patient was seen on 05/29/21. Progress Note SUBJECTIVE: Seen and examined at bedside. Doing well. Pending ARU screen. In good spirits today. No more passive wishes, or SI. Seen by Dr. Pearson on 05/27/21, no need for sitter. Patient declined SSRI. OBJECTIVE PHYSICAL EXAMINATION: VITAL SIGNS: please see below General: NAD, comfortable. She appears fatigued. HEENT: PERRLA, EOMI, sclerae clear Neck: supple, normal ROM, no JVD Respiratory: lungs CTAB, no wheeze, no rales, no crackles CVS: RRR, normal S1, S2, no murmurs Abdo: soft, no masses, no hepatosplenomegaly, BS+, no rebound tenderness Extremities: no edema, pulses 2+ MSK: no joint deformities, normal ROM Neuro: no focal neuro deficits, moving all 4 extremities, CN2-12 intact. Strength 5/5 in all 4 extremities. No nystagmus. Psych: calm, cooperative, AAO x 3 LABORATORY DATA, IMAGING STUDIES, MICROBIOLOGY: Please see below. Bilateral arterial doppler (05/27/21): IMPRESSION: Severe plaquing diffusely bilaterally. Multifocal severe stenoses involving the bilateral superficial femoral arteries. The anterior tibial arteries are occluded bilaterally. There is reconstitution the left anterior tibial artery at the ankle. MR Lumbar Spine (05/27/21): FINDINGS: There is an intervertebral disc visible at S1-S2 which is partially fused. Cortical and medullary bone signal intensity are normal. Vertebral body heights are preserved. There are mild degenerative disc related marrow changes on either side of the L5-S1 disc and there is mild reactive marrow change associated with a Schmorl's node at the superior endplate of the L4 vertebral body on the left side. The tip of the conus medullaris is normal in the patient's position and appearance at the L1 level. Normal caliber aorta is seen. No extra vertebral abnormality is appreciated. There is mild motion artifact on the T2 weighted axial sequence. Axial and sagittal images at L1-L2 show no evidence of disc protrusion, spinal stenosis, or foraminal narrowing. At L2-L3, the posterior disc margin is intact. At At L3-L4, there is no evidence of disc protrusion, spinal stenosis, or foraminal narrowing. There is minimal facet hypertrophy. At L4-5, there is mild facet hypertrophy bilaterally. Mild disc space narrowing is seen in there is mild diffuse disc bulging. No spinal stenosis or foraminal narrowing is seen. At L5-S1, there is degenerative disc narrowing and decreased signal intensity. There is mild diffuse disc bulging. There is mild posterior facet hypertrophy bilaterally. No spinal stenosis or foraminal narrowing. IMPRESSION: Degenerative spondylosis changes most pronounced at L5-S1. Osteoarthritic facet hypertrophy is also present bilaterally at L4-5 and to a lesser extent, at L3-4. Echocardiogram: Echo from 05/01/21: 1. Study is of fair technical quality, patient is in atrial flutter with controlled rate. 2. Normal LV size with mild LVH, low normal LV systolic function with estimated EF around 50% to 55%. 3. Dilated hypokinetic right ventricle. 4. Prominent aortic sclerosis resulting in approximately moderate aortic stenosis (mean gradient 20 mmHg) and mild aortic insufficiency. 5. Likely status post mitral valve annuloplasty resulting in mild mitral stenosis (mean gradient 5 mmHg). 6. Very high central venous pressure and moderately severe pulmonary hypertension. 7. At least moderate tricuspid insufficiency. 8. Dilated pulmonary artery. DVT prophylaxis ordered?: SCDs. TEDs. ASSESSMENT AND PLAN: PROBLEMS: # Weakness with multiple falls at home/PAD - will likely require placement to rehab - PT recommends home with services at this time, but I do not believe this to be a practical option given frequent readmissions from home for same - MR Lumbar spine without spinal stenosis, acute spinal processes - Bilateral arterial dopplers show chronic plaquing, anterior tibial arteries occluded. Limbs are warm, non dusky. D/w Dr. Brito. Appropriate for outpatient workup. Will be happy to see in clinic. - with regard to possible neuropathy, I have requested a consult from Dr. De Souza for assistance. Will check B12, B1, folate, HbA1c, copper levels. - labs from 03/11 reviewed. Elevated kappa and lambda chains are elevated, but ratio is acceptable in setting of CKD per Dr. Marinelli. No Bence Nelson proteins in urine, no MGUS in UPEP. - Dw Dr. De Souza. Replacing B12, Folate deficiencies. 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 Will trial IVIG 50 g daily x 3 day.s Atrial fibrillation with slow ventricular rate - no AC due to frequent GI bleeds/falls - check nocturnal oximetry - EKG showing afib, bifascular block, previously seen on EKG in 04/2021 - need outpatient ischemic workup - is asymptomatic during periods of bradycardia - hold metoprolol - d/w Dr. Morejon on 05/25/21. No indication for pacemaker as patient is not presenting with symptomatic bifascicular blocl, slow afib - overnight on 05/26/21, had several pauses on telemetry, longest lasting 2.08 seconds, with bradycardia to 45. - i discussed the pauses with the patient's marketing recruiter, Dr. Olivares. Given that the patient is asymptomatic, and is not having significantg pauses during the day, there is not indication for pacemaker. He will see patient in the clinic. While it is possible that the patient is experiencing weakness 2/2 bradycardia, it is not possible to definitively attribute the two. Passive wish - consulted Dr. Pearson - one to one sitter until eval by psychiatrist. # ESRD on HD 2/2 IgA nephropathy. - HD on Tue//Tue, started on 05/01/21 - Dr. Hobson consulted - continue steroid therapy - avoid nephrotoxins # Cirrhosis, etiology unclear - Continue supportive care - fu with GI outpatiet #Hx of C diff - reviewed records from previous admission - completed course of dificid on 05/10/21 - no longer having diarrhea # Thrombocytopenia 2/2 liver cirrhosis - daily CBC # CAD - hx CABG - Continue statin, beta constantin - monitor on Tele. BPH - c/w flomax - c/w finasteride Hypothyroidism - Continue levothyroxine. Neuropathy - Continue gabapentin. Essential Hypertension - holding metoprolol given bradycardia DVT prophylaxis. heparin q8h Dispo: I believe that patient is unsafe for discharge home, and has a high risk of readmission due to deconditioning. The patient will be made ALC status. PFS has been consulted to assist us with placement to care facility. VS, I&O, 24H, Fishbone Vital Signs/I&O Vital Signs Date Time Temp Pulse Resp B/P (MAP) Pulse Ox O2 Delivery O2 Flow Rate FiO2 05/29/21 20:00 97.5 70 16 113/55 (74) 94 Room Air I&O- Last 24 Hours up to 6 AM 05/29/21 06:00 Intake Total 1070 ml Output Total 550 ml Balance 520 ml Laboratory Data 24H LABS Laboratory Tests 2 05/29/21 07:44: Nucleated Red Blood Cells % (auto) 0.6H, Anion Gap 8, Glomerular Filtration Rate 16.0L, Calcium Level 8.4L, Magnesium Level 1.8, Total Bilirubin 0.3, Aspartate Amino Transf (AST/SGOT) 24, Alanine Aminotransferase (ALT/SGPT) 38, Alkaline Phosphatase 89, Total Protein 5.1L, Albumin 2.4L, Albumin/Globulin Ratio 0.9 05/29/21 18:50: Urine Color YELLOW, Urine Appearance HAZY, Urine pH 5.0, Urine Specific [place] 1.012, Urine Protein 1+H, Urine Glucose (UA) NEGATIVE, Urine Ketones NEGATIVE, Urine Blood 3+H, Urine Nitrite NEGATIVE, Urine Bilirubin NEGATIVE, Urine Urobilinogen 0.2, Urine Leukocyte Esterase 1+H, Urine WBC (Auto) 16H, Urine RBC (Auto) 171H, Urine Hyaline Casts (Auto) 5, Urine Bacteria (Auto) 1+H, Urine Squamous Epithelial Cells 0, Urine Mucus (Auto) SMALL, Urine Sperm (Auto) CBC/BMP Laboratory Tests 05/29/21 07:44 Microbiology Microbiology 05/29/21 Urine Culture, Received Pending 05/23/21 Urine Culture - Final, Complete Enterobacter Cloacae Complex BAR PURCELL MD May 29, 2021 21:49
[2021-05-30] VITALS (19 sets, daily range): BP systolic 12–152; BP diastolic 54–78
[2021-05-30] MEDS: LEVOTHYROXINE 88MCG TABLET (0.088 MG) PO SCH (06:29)
[2021-05-30] MEDS: METOPROLOL TART 12.5 MG PER 1/2 TAB PO SCH ×2 (08:19→20:43)
[2021-05-30] MEDS: predniSONE 10 MG TAB PO SCH (08:29)
[2021-05-30] MEDS: FOLIC ACID 1 MG TAB PO SCH (08:29)
[2021-05-30] MEDS: CYANOCOBALAMIN 1,000MCG/ML VIAL (J3420) IM SCH (08:29)
[2021-05-30] MEDS: FINASTERIDE 5 MG TAB PO SCH (08:29)
[2021-05-30] MEDS: THIAMINE 100 MG TAB PO SCH (08:30)
[2021-05-30] MEDS: TAMSULOSIN 0.4 MG CAP PO SCH (08:30)
[2021-05-30 10:16] LABS: HEMATOCRIT 31.2 % (42.0-52.0); MEAN CORPUSCULAR HEMOGLOBIN 31.9 pg (27.0-33.0); MEAN CORPUSCULAR HGB CONC 32.1 g/dl (32.0-36.5); MEAN CORPUSCULAR VOLUME 99.7 fl (80.0-96.0); PLATELET COUNT, AUTOMATED 146 10^3/uL (150-450); RED BLOOD COUNT 3.13 10^6/uL (4.30-6.10); WHITE BLOOD COUNT 8.4 10^3/uL (4.0-10.0)
[2021-05-30 10:43] LABS: ALBUMIN 2.4 GM/DL (3.2-5.2); BILIRUBIN,TOTAL 0.4 MG/DL (0.2-1.0); CALCIUM LEVEL 8.1 MG/DL (8.8-10.2); CREATININE FOR GFR 2.51 MG/DL (0.70-1.30); GLOMERULAR FILTRATION RATE 26.6 (>42); MAGNESIUM LEVEL 1.7 MG/DL (1.8-2.4); POTASSIUM SERUM 4.3 MEQ/L (3.5-5.1); TOTAL PROTEIN 6.7 GM/DL (6.4-8.2)
[2021-05-30 11:06] LABS: LYMPHOCYTES 8 % (16-44); METAMYELOCYTES 3 % (0-0); MONOCYTES 3 % (0-5); MYELOCYTES 4 % (0-0); NEUTROPHILS 80 % (28-66)
[2021-05-30 11:07] LABS: PLATELET ESTIMATE NORMAL (NORMAL)
[2021-05-30 11:08] LABS: ANISOCYTOSIS 2+; POLYCHROMASIA 1+
[2021-05-30 11:09] LABS: SCHISTOCYTES 1+
[2021-05-30 11:10] LABS: OVALOCYTES 1+
--- NOTE | 2021-05-30 14:18 | IPNPDOC ---
Date Seen The patient was seen on 05/30/21. Progress Note SUBJECTIVE: Seen and examined at bedside. Doing well. Pending ARU screen. In good spirits today. No more passive wishes, or SI OBJECTIVE PHYSICAL EXAMINATION: VITAL SIGNS: please see below General: NAD, comfortable. She appears fatigued. HEENT: PERRLA, EOMI, sclerae clear Neck: supple, normal ROM, no JVD Respiratory: lungs CTAB, no wheeze, no rales, no crackles CVS: RRR, normal S1, S2, no murmurs Abdo: soft, no masses, no hepatosplenomegaly, BS+, no rebound tenderness Extremities: no edema, pulses 2+ MSK: no joint deformities, normal ROM Neuro: no focal neuro deficits, moving all 4 extremities, CN2-12 intact. Strength 5/5 in all 4 extremities. No nystagmus. Psych: calm, cooperative, AAO x 3 LABORATORY DATA, IMAGING STUDIES, MICROBIOLOGY: Please see below. Bilateral arterial doppler (05/27/21): IMPRESSION: Severe plaquing diffusely bilaterally. Multifocal severe stenoses involving the bilateral superficial femoral arteries. The anterior tibial arteries are occluded bilaterally. There is reconstitution the left anterior tibial artery at the ank le. MR Lumbar Spine (05/27/21): FINDINGS: There is an intervertebral disc visible at S1-S2 which is partially fused. Cortical and medullary bone signal intensity are normal. Vertebral body heights are preserved. There are mild degenerative disc related marrow changes on either side of the L5-S1 disc and there is mild reactive marrow change associated with a Schmorl's node at the superior endplate of the L4 vertebral body on the left side. The tip of the conus medullaris is normal in the patient's position and appearance at the L1 level. Normal caliber aorta is seen. No extra vertebral abnormality is appreciated. There is mild motion artifact on the T2 weighted axial sequence. Axial and sagittal images at L1-L2 show no evidence of disc protrusion, spinal stenosis, or foraminal narrowing. At L2-L3, the posterior disc margin is intact. At At L3-L4, there is no evidence of disc protrusion, spinal stenosis, or foraminal narrowing. There is minimal facet hypertrophy. At L4-5, there is mild facet hypertrophy bilaterally. Mild disc space narrowing is seen in there is mild diffuse disc bulging. No spinal stenosis or foraminal narrowing is seen. At L5-S1, there is degenerative disc narrowing and decreased signal intensity. There is mild diffuse disc bulging. There is mild posterior facet hypertrophy bilaterally. No spinal stenosis or foraminal narrowing. IMPRESSION: Degenerative spondylosis changes most pronounced at L5-S1. Osteoarthritic facet hypertrophy is also present bilaterally at L4-5 and to a lesser extent, at L3-4. Echocardiogram: Echo from 05/01/21: 1. Study is of fair technical quality, patient is in atrial flutter with controlled rate. 2. Normal LV size with mild LVH, low normal LV systolic function with estimated EF around 50% to 55%. 3. Dilated hypokinetic right ventricle. 4. Prominent aortic sclerosis resulting in approximately moderate aortic stenosis (mean gradient 20 mmHg) and mild aortic insufficiency. 5. Likely status post mitral valve annuloplasty resulting in mild mitral stenosis (mean gradient 5 mmHg). 6. Very high central venous pressure and moderately severe pulmonary hypertension. 7. At least moderate tricuspid insufficiency. 8. Dilated pulmonary artery. DVT prophylaxis ordered?: SCDs. TEDs. ASSESSMENT AND PLAN: PROBLEMS: # Weakness with multiple falls at home/PAD - will likely require placement to rehab - PT recommends home with services at this time, but I do not believe this to be a practical option given frequent readmissions from home for same - MR Lumbar spine without spinal stenosis, acute spinal processes - Bilateral arterial dopplers show chronic plaquing, anterior tibial arteries occluded. Limbs are warm, non dusky. D/w Dr. Brito. Appropriate for outpatient workup. Will be happy to see in clinic. - with regard to possible neuropathy, I have requested a consult from Dr. De Souza for assistance. Will check B12, B1, folate, HbA1c, copper levels. - labs from 03/11 reviewed. Elevated kappa and lambda chains are elevated, but ratio is acceptable in setting of CKD per Dr. Marinelli. No Bence Nelson proteins in urine, no MGUS in UPEP. - Dw Dr. De Souza. Replacing B12, Folate deficiencies. Possible presentation of Guillaine-[place]. Will trial IVIG 50 g daily x 3 days Atrial fibrillation with slow ventricular rate - no AC due to frequent GI bleeds/falls - check nocturnal oximetry - EKG showing afib, bifascular block, previously seen on EKG in 04/2021 - need outpatient ischemic workup - is asymptomatic during periods of bradycardia - hold metoprolol - d/w Dr. Morejon on 05/25/21. No indication for pacemaker as patient is not presenting with symptomatic bifascicular blocl, slow afib - overnight on 05/26/21, had several pauses on telemetry, longest lasting 2.08 seconds, with bradycardia to 45. 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 Olivares. Given that the patient is asymptomatic, and is not having significant pauses during the day, there is not indication for pacemaker. He will see patient in the clinic. While it is possible that the patient is experiencing weakness 2/2 bradycardia, it is not possible to definitively attribute the two. - Dr. Olivares recommending not starting anticoagulation at this time, until we are confident in source of anemia Neuropathy - Continue gabapentin. - replace B12, folate - Dr. De Souza has been consulted, patient receiving IVIG 50g IV daily x 3 days for possible GB Passive wish - patient examined by Dr. Pearson - refused SSRI - no longer having passive wish - to DC sitter per Dr. Pearson Enterobacter UTI - s/p 3 days ceftriaxone - complete treatment with ciprofloxacin, as cefdinir dosage complex with HD schedule. ESRD on HD 2/2 IgA nephropathy. - HD on Tue//Tue, started on 05/01/21 - Dr. Hobson consulted - continue steroid therapy - avoid nephrotoxins Anemia - recieving iron supplementations - pRBC tranfusion with HD - negative fecal occult blood - on aranesp Cirrhosis, etiology unclear - Continue supportive care - fu with GI outpatiet Hx of C diff - reviewed records from previous admission - completed course of dificid on 05/10/21 - no longer having diarrhea Thrombocytopenia 2/2 liver cirrhosis - remains stable, PLT 146. - daily CBC CAD - hx CABG - Continue statin, beta constantin - monitor on Tele. BPH - c/w flomax - c/w finasteride Hypothyroidism - Continue levothyroxine. Essential Hypertension - BP well controlled. - c/w metoprolol with holding parameters. DVT prophylaxis. heparin q8h Dispo: I believe that patient is unsafe for discharge home, and has a high risk of readmission due to deconditioning. The patient will be made ALC status. PFS has been consulted to assist us with placement to care facility. VS, I&O, 24H, Fishbone Vital Signs/I&O Vital Signs Date Time Temp Pulse Resp B/P (MAP) Pulse Ox O2 Delivery O2 Flow Rate FiO2 05/30/21 08:19 66 117/54 05/30/21 07:27 97.6 18 98 Room Air I&O- Last 24 Hours up to 6 AM 05/30/21 05:59 Intake Total 900 ml Output Total 1425 ml Balance -525 ml Laboratory Data 24H LABS Laboratory Tests 2 05/29/21 18:50: Urine Color YELLOW, Urine Appearance HAZY, Urine pH 5.0, Urine Specific [place] 1.012, Urine Protein 1+H, Urine Glucose (UA) NEGATIVE, Urine Ketones NEGATIVE, Urine Blood 3+H, Urine Nitrite NEGATIVE, Urine Bilirubin NEGATIVE, Urine Urobilinogen 0.2, Urine Leukocyte Esterase 1+H, Urine WBC (Auto) 16H, Urine RBC (Auto) 171H, Urine Hyaline Casts (Auto) 5, Urine Bacteria (Auto) 1+H, Urine Squamous Epithelial Cells 0, Urine Mucus (Auto) SMALL, Urine Sperm (Auto) 05/30/21 09:18: Immature Granulocyte % (Auto) , Neutrophils (%) (Auto) , Nucleated Red Blood Cells % (auto) 1.3H, Neutrophils 80H, Band Neutrophils 2, Lymphocytes (Manual) 8L, Monocytes (Manual) 3, Metamyelocytes 3H, Myelocytes 4H, Polychromasia 1+, Anisocytosis 2+, Macrocytosis 1+, Schistocytes 1+, Ovalocytes 1+, Platelet Estimate NORMAL, Anion Gap 8, Glomerular Filtration Rate 26.6L, Calcium Level 8.1L, Magnesium Level 1.7L, Total Bilirubin 0.4, Aspartate Amino Transf (AST/SGOT) 39H, Alanine Aminotransferase (ALT/SGPT) 49, Alkaline Phosphatase 84, Total Protein 6.7#, Albumin 2.4L, Albumin/Globulin Ratio 0.6 CBC/BMP Laboratory Tests 05/30/21 09:18 Microbiology Microbiology 05/30/21 Stool Occult Blood (JACKI) - Final, Complete 05/29/21 Urine Culture - Final, Complete 05/23/21 Urine Culture - Final, Complete Enterobacter Cloacae Complex BAR PURCELL MD May 30, 2021 14:18
[2021-05-30] MEDS: CIPROFLOXACIN 500MG TABLET PO SCH (15:06)
[2021-05-30] MEDS: IMMUNE GLOBULIN 10% 10 GM, IMMUNE GLOBULIN 10% 40 GM in IV 1 EA IV SCH (20:35)
[2021-05-30] MEDS: RAMELTEON 8 MG TAB (ROZEREM) PO SCH (20:43)
[2021-05-30] MEDS: GABAPENTIN 100 MG CAP PO SCH (20:43)
[2021-05-31] VITALS (8 sets, daily range): BP systolic 104–154; BP diastolic 54–65
[2021-05-31 05:52] LABS: HEMATOCRIT 31.6 % (42.0-52.0); MEAN CORPUSCULAR HEMOGLOBIN 31.7 pg (27.0-33.0); MEAN CORPUSCULAR HGB CONC 31.6 g/dl (32.0-36.5); MEAN CORPUSCULAR VOLUME 100.3 fl (80.0-96.0); PLATELET COUNT, AUTOMATED 139 10^3/uL (150-450); RED BLOOD COUNT 3.15 10^6/uL (4.30-6.10); WHITE BLOOD COUNT 7.6 10^3/uL (4.0-10.0)
[2021-05-31 06:13] LABS: CALCIUM LEVEL 7.9 MG/DL (8.8-10.2); CREATININE FOR GFR 3.27 MG/DL (0.70-1.30); GLOMERULAR FILTRATION RATE 19.6 (>42); POTASSIUM SERUM 4.8 MEQ/L (3.5-5.1)
[2021-05-31] MEDS: LEVOTHYROXINE 88MCG TABLET (0.088 MG) PO SCH (06:27)
[2021-05-31 06:33] LABS: LYMPHOCYTES 9 % (16-44); METAMYELOCYTES 4 % (0-0); MONOCYTES 8 % (0-5); MYELOCYTES 4 % (0-0); NEUTROPHILS 70 % (28-66)
[2021-05-31 06:34] LABS: ANISOCYTOSIS 2+
[2021-05-31 06:35] LABS: POLYCHROMASIA 1+
[2021-05-31 06:36] LABS: PLATELET ESTIMATE DECREASED (NORMAL); SCHISTOCYTES 1+
[2021-05-31 06:37] LABS: PLATELET CLUMPS SMALL AMT
[2021-05-31] MEDS: THIAMINE 100 MG TAB PO SCH (09:07)
[2021-05-31] MEDS: FINASTERIDE 5 MG TAB PO SCH (09:07)
[2021-05-31] MEDS: CYANOCOBALAMIN 1,000MCG/ML VIAL (J3420) IM SCH (09:07)
[2021-05-31] MEDS: FOLIC ACID 1 MG TAB PO SCH (09:08)
[2021-05-31] MEDS: METOPROLOL TART 12.5 MG PER 1/2 TAB PO SCH ×2 (09:08→21:00)
[2021-05-31] MEDS: TAMSULOSIN 0.4 MG CAP PO SCH (09:08)
[2021-05-31] MEDS: predniSONE 10 MG TAB PO SCH (09:08)
--- NOTE | 2021-05-31 11:10 | CR ---
CONSULTATION DATE: 05/30/2021 REFERRING PHYSICIAN: Oleg Ascencio MD REASON FOR CONSULTATION: Difficulty walking, falls and weakness of legs. HISTORY OF PRESENT ILLNESS: Raúl Gomez is a 75-year-old man who was admitted at [facility] due to difficulty getting out of a chair. The patient has history of end-stage renal disease on hemodialysis. He fell at the clinic. He was unable to get himself up. 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 His legs were too weak and he was unable to stand and get out of chair. He has been using a walker to ambulate around the house but has fallen even doing that. He was admitted at [facility] a month ago after he fell at home and was down for six hours and had to wait for his to come back and bring him to [facility]. He spent two weeks at the hospital and was discharged to rehabilitation and then home. He returned back to hospital the same day with same complaints. The patient states that his upper body seems okay. He denies any problem with his arms. He feels numbness and weakness of his legs. He has difficulty walking. He has difficulty walking. He denies any neck or back pain, dysphagia, dysarthria, diplopia, urinary incontinence, loss of consciousness. PAST MEDICAL HISTORY: 1. Atrial fibrillation on no anticoagulation. 2. Coronary artery disease. 3. Aortic valvular stenosis. 4. Pulmonary hypertension. 5. Hypertension. 6. Hypothyroidism. 7. End-stage renal disease. 8. IgA nephropathy on chronic steroids. 9. Secondary hyperparathyroidism. 10. Anemia of chronic disease. 11. Gout. 12. Neuropathy. 13. Prostate hypertrophy. 14. Cirrhosis. 15. Thrombocytopenia. 16. Mitral valve repair. 17. Coronary artery bypass graft. 18. Hemodialysis catheter placement on hemodialysis three times a week. HOME MEDICATIONS: 1. Atorvastatin 20 mg p.o. daily. 2. Finasteride 5 mg p.o. daily. 3. Gabapentin 200 mg p.o. q.h.s. 4. Levothyroxine 88 mcg p.o. daily. 5. Metoprolol extended release 50 mg p.o. daily. 6. Prednisone 10 mg p.o. daily. 7. Ramelteon 8 mg p.o. daily. 8. Flomax 0.4 mg p.o. daily. ALLERGIES: None. LABORATORY STUDIES: WBC was 10.3, hemoglobin 8.6, platelet count 146. Creatinine was 3.37. CK was 55 and CRP was 10.10. ASSESSMENT: 1. Multifactorial gait difficulty. 2. Suspected peripheral neuropathy. 3. 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 4. Mild multilevel cervical and lumbosacral degenerative disc disease. 5. Vitamin B12, folic acid and vitamin D deficiency. PLAN: 1. I discussed with nephrology about trial of intravenous immunoglobulins due to concern for Guillain-[place] syndrome and CIDP. Nephrology does not think that hemodialysis would wash out intravenous immunoglobulins. We will proceed with 50 gm daily for three days. 2. Vitamin B12 1000 mcg intramuscular daily and then once a month on outpatient basis. Folic acid 1 mg p.o. daily and vitamin D3 5000 units p.o. daily. 3. Physical and occupational therapy, walker and consider motorized wheelchair. 4. EMG nerve conduction study of arms and legs on outpatient basis. 5. Follow with our office in 1-2 weeks after hospital discharge.
--- NOTE | 2021-05-31 12:11 | IPN ---
NEPHROLOGY PROGRESS NOTE DATE: 05/30/2021 SUBJECTIVE: Mr. Gomez is seen this morning on his bedside. He is sitting in the chair at the time of my visit. He reports feeling week and has difficulty ambulating. His is quite discouraged about his condition. He has been started on intravenous (IV) Ig by neurology for possible demyelinated neuropathy. In the meantime, patient also remains dialysis dependent due to recent acute renal failure, which has shown no recovery so far. Patient was dialyzed yesterday. PHYSICAL EXAMINATION: Temperature 97.7 degrees Fahrenheit, heart rate 68 per minute, respiratory rate 18 per minute, blood pressure 126/60 mmHg, oxygen saturation 96% on room air. HEAD: Atraumatic. NECK: Supple and without jugular venous distention (JVD) or thyroid enlargement. Dialysis catheter is present on right upper chest. HEART SOUNDS: Regular. LUNGS: Clear to auscultation. ABDOMEN: Protuberant, soft and nontender. Bowel sounds are normal. EXTREMITIES: Without any cyanosis or clubbing. He does not have any peripheral edema. NEUROLOGIC: He is awake, alert and at his baseline mentation without a focal deficit. LABORATORY DATA: Today's labs show WBC 8.4, hemoglobin 10.0, hematocrit 31.2, platelets 146. Sodium 136, potassium 4.3, CO2 25, BUN 24, creatinine 2.51, calcium level 9.1 and magnesium 1.7. PROBLEMS: 1. Acute renal failure superimposed on chronic kidney disease. Patient was dialyzed yesterday and, at this point, there is no urgent need for dialysis today. His volume status is well-compensated. Electrolytes are all within normal range. 2. Anemia. At present, his anemia is stable and he remains on weekly dose of Aranesp, 200 mcg, which will be continued. 3. Weakness of the lower extremities and inability to ambulate well. Patient has been started on immunoglobulins with IVIg. He is being followed by neurology. 4. Hypertension. Blood pressure seems very well controlled on current antihypertensive medications.
--- NOTE | 2021-05-31 13:23 | IPN ---
NEPHROLOGY PROGRESS NOTE DATE: 05/31/2021 SUBJECTIVE: Mr. Gomez is seen this morning on his bedside. He is feeling tired and sleepy as he went to bed very late last night. He was transferred out of the progressive care unit last night about 2:00 a.m. He denies any nausea, vomiting, fever or chills. He is still very weak. PHYSICAL EXAMINATION: Temperature 96.8 degrees Fahrenheit, heart rate 56 per minute, respiratory rate 18 per minute, blood pressure 134/65 mmHg, oxygen saturation 96% on room air. INTAKE AND OUTPUT: His urine output was recorded as only 355 mL yesterday. HEAD: Atraumatic. NECK: Supple and without jugular venous distention (JVD) or thyroid enlargement. Dialysis catheter is intact. HEART SOUNDS: Regular. LUNGS: Clear to auscultation. ABDOMEN: Soft and nontender. Bowel sounds are normal. EXTREMITIES: Without any cyanosis or clubbing. There is no peripheral edema. LABORATORY DATA: Today's labs show WBC 7.6, hemoglobin 10.0, hematocrit 31.6, platelets 139. Sodium 137, potassium 4.8, CO2 23, BUN 39, creatinine 3.27. PROBLEMS: 1. Acute renal failure superimposed on chronic kidney disease. Patient is still oliguric and dialysis dependent. He was last dialyzed on Tuesday and will plan next dialysis on Tuesday. There is no emergent need for dialysis today. 2. Anemia. His anemia is stable at present and he will continue with Aranesp once a week. 3. Weakness of lower extremities. Patient is currently receiving IVIG for possible demyelinating neuropathy. He is also getting physical therapy. 4. IgA nephropathy. Patient has been on prednisone and dose is cut down to 10 mg daily. 5. Hypertension. Blood pressure seems well-controlled on current medications. No changes are being made today.
[2021-05-31] MEDS: CIPROFLOXACIN 500MG TABLET PO SCH (16:13)
[2021-05-31] MEDS: IMMUNE GLOBULIN 10% 10 GM, IMMUNE GLOBULIN 10% 40 GM in IV 1 EA IV SCH (20:00)
--- NOTE | 2021-05-31 20:40 | IPNPDOC ---
Date Seen The patient was seen on 05/31/21. Progress Note SUBJECTIVE: Seen and examined at bedside. Doing well. Pending ARU screen. In good spirits today. No more passive wishes, or SI OBJECTIVE PHYSICAL EXAMINATION: VITAL SIGNS: please see below General: NAD, comfortable. She appears fatigued. HEENT: PERRLA, EOMI, sclerae clear Neck: supple, normal ROM, no JVD Respiratory: lungs CTAB, no wheeze, no rales, no crackles CVS: RRR, normal S1, S2, no murmurs Abdo: soft, no masses, no hepatosplenomegaly, BS+, no rebound tenderness Extremities: no edema, pulses 2+ MSK: no joint deformities, normal ROM Neuro: no focal neuro deficits, moving all 4 extremities, CN2-12 intact. Strength 5/5 in all 4 extremities. No nystagmus. Psych: calm, cooperative, AAO x 3 LABORATORY DATA, IMAGING STUDIES, MICROBIOLOGY: Please see below. Bilateral arterial doppler (05/27/21): IMPRESSION: Severe plaquing diffusely bilaterally. Multifocal severe stenoses involving the bilateral superficial femoral arteries. The anterior tibial arteries are occluded bilaterally. There is reconstitution the left anterior tibial artery at the ank le. MR Lumbar Spine (05/27/21): FINDINGS: There is an intervertebral disc visible at S1-S2 which is partially fused. Cortical and medullary bone signal intensity are normal. Vertebral body heights are preserved. There are mild degenerative disc related marrow changes on either side of the L5-S1 disc and there is mild reactive marrow change associated with a Schmorl's node at the superior endplate of the L4 vertebral body on the left side. The tip of the conus medullaris is normal in the patient's position and appearance at the L1 level. Normal caliber aorta is seen. No extra vertebral abnormality is appreciated. There is mild motion artifact on the T2 weighted axial sequence. Axial and sagittal images at L1-L2 show no evidence of disc protrusion, spinal stenosis, or foraminal narrowing. At L2-L3, the posterior disc margin is intact. At At L3-L4, there is no evidence of disc protrusion, spinal stenosis, or foraminal narrowing. There is minimal facet hypertrophy. At L4-5, there is mild facet hypertrophy bilaterally. Mild disc space narrowing is seen in there is mild diffuse disc bulging. No spinal stenosis or foraminal narrowing is seen. At L5-S1, there is degenerative disc narrowing and decreased signal intensity. There is mild diffuse disc bulging. There is mild posterior facet hypertrophy bilaterally. No spinal stenosis or foraminal narrowing. IMPRESSION: Degenerative spondylosis changes most pronounced at L5-S1. Osteoarthritic facet hypertrophy is also present bilaterally at L4-5 and to a lesser extent, at L3-4. Echocardiogram: Echo from 05/01/21: 1. Study is of fair technical quality, patient is in atrial flutter with controlled rate. 2. Normal LV size with mild LVH, low normal LV systolic function with estimated EF around 50% to 55%. 3. Dilated hypokinetic right ventricle. 4. Prominent aortic sclerosis resulting in approximately moderate aortic stenosis (mean gradient 20 mmHg) and mild aortic insufficiency. 5. Likely status post mitral valve annuloplasty resulting in mild mitral stenosis (mean gradient 5 mmHg). 6. Very high central venous pressure and moderately severe pulmonary hypertension. 7. At least moderate tricuspid insufficiency. 8. Dilated pulmonary artery. DVT prophylaxis ordered?: SCDs. TEDs. ASSESSMENT AND PLAN: PROBLEMS: # Weakness with multiple falls at home/PAD - will likely require placement to rehab - PT recommends home with services at this time, but I do not believe this to be a practical option given frequent readmissions from home for same - MR Lumbar spine without spinal stenosis, acute spinal processes - Bilateral arterial dopplers show chronic plaquing, anterior tibial arteries occluded. Limbs are warm, non dusky. D/w Dr. Brito. Appropriate for outpatient workup. Will be happy to see in clinic. - with regard to possible neuropathy, I have requested a consult from Dr. De Souza for assistance. Will check B12, B1, folate, HbA1c, copper levels. - labs from 03/11 reviewed. Elevated kappa and lambda chains are elevated, but ratio is acceptable in setting of CKD per Dr. Marinelli. No Bence Nelson proteins in urine, no MGUS in UPEP. - Dw Dr. De Souza. Replacing B12, Folate deficiencies. Possible presentation of Guillaine-[place]. Will trial IVIG 50 g daily x 3 days Atrial fibrillation with slow ventricular rate - no AC due to frequent GI bleeds/falls - check nocturnal oximetry - EKG showing afib, bifascular block, previously seen on EKG in 04/2021 - need outpatient ischemic workup - is asymptomatic during periods of bradycardia - hold metoprolol - d/w Dr. Morejon on 05/25/21. No indication for pacemaker as patient is not presenting with symptomatic bifascicular blocl, slow afib - overnight on 05/26/21, had several pauses on telemetry, longest lasting 2.08 seconds, with bradycardia to 45. 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 Olivares. Given that the patient is asymptomatic, and is not having significant pauses during the day, there is not indication for pacemaker. He will see patient in the clinic. While it is possible that the patient is experiencing weakness 2/2 bradycardia, it is not possible to definitively attribute the two. - Dr. Olivares recommending not starting anticoagulation at this time, until we are confident in source of anemia Neuropathy - Continue gabapentin. - replace B12, folate - Dr. De Souza has been consulted, patient receiving IVIG 50g IV daily x 3 days for possible GB Passive wish - patient examined by Dr. Pearson - refused SSRI - no longer having passive wish - to DC sitter per Dr. Pearson Enterobacter UTI - s/p 3 days ceftriaxone - complete treatment with ciprofloxacin, as cefdinir dosage complex with HD schedule. ESRD on HD 2/2 IgA nephropathy. - HD on Tue//Tue, started on 05/01/21 - Dr. Hobson consulted - continue steroid therapy - avoid nephrotoxins Anemia - recieving iron supplementations - pRBC tranfusion with HD - negative fecal occult blood - on aranesp Cirrhosis, etiology unclear - Continue supportive care - fu with GI outpatiet Hx of C diff - reviewed records from previous admission - completed course of dificid on 05/10/21 - no longer having diarrhea Thrombocytopenia 2/2 liver cirrhosis - remains stable, PLT 146. - daily CBC CAD - hx CABG - Continue statin, beta constantin - monitor on Tele. BPH - c/w flomax - c/w finasteride Hypothyroidism - Continue levothyroxine. Essential Hypertension - BP well controlled. - c/w metoprolol with holding parameters. DVT prophylaxis. heparin q8h Dispo: I believe that patient is unsafe for discharge home, and has a high risk of readmission due to deconditioning. The patient will be made ALC status. PFS has been consulted to assist us with placement to care facility. VS, I&O, 24H, Fishbone Vital Signs/I&O Vital Signs Date Time Temp Pulse Resp B/P (MAP) Pulse Ox O2 Delivery O2 Flow Rate FiO2 05/31/21 14:00 97.4 65 18 116/54 (74) 95 Room Air I&O- Last 24 Hours up to 6 AM 05/31/21 06:00 Intake Total 240 ml Output Total 230 ml Balance 10 ml Laboratory Data 24H LABS Laboratory Tests 2 05/31/21 05:34: Immature Granulocyte % (Auto) , Neutrophils (%) (Auto) , Nucleated Red Blood Cells % (auto) 1.7H, Neutrophils 70H, Band Neutrophils 5, Lymphocytes (Manual) 9L, Monocytes (Manual) 8H, Metamyelocytes 4H, Myelocytes 4H, Polychromasia 1+, Anisocytosis 2+, Macrocytosis 1+, Schistocytes 1+, Platelet Estimate DECREASED, Clumped Platelets SMALL AMT, Anion Gap 9, Glomerular Filtration Rate 19.6L, Calcium Level 7.9L CBC/BMP Laboratory Tests 05/31/21 05:34 Microbiology Microbiology 05/30/21 Stool Occult Blood (JACKI) - Final, Complete 05/29/21 Urine Culture - Final, Complete 05/23/21 Urine Culture - Final, Complete Enterobacter Cloacae Complex BAR PURCELL MD May 31, 2021 20:40
[2021-05-31] MEDS: GABAPENTIN 100 MG CAP PO SCH (21:47)
[2021-05-31] MEDS: RAMELTEON 8 MG TAB (ROZEREM) PO SCH (21:47)
[2021-06-01 02:00] VITALS: BP 104/64
[2021-06-01 06:00] VITALS: BP 148/66
[2021-06-01] MEDS: FOLIC ACID 1 MG TAB PO SCH (06:53)
[2021-06-01] MEDS: THIAMINE 100 MG TAB PO SCH (06:53)
[2021-06-01] MEDS: predniSONE 10 MG TAB PO SCH (06:53)
[2021-06-01] MEDS: TAMSULOSIN 0.4 MG CAP PO SCH (06:53)
[2021-06-01] MEDS: CYANOCOBALAMIN 1,000MCG/ML VIAL (J3420) IM SCH (06:54)
[2021-06-01] MEDS: LEVOTHYROXINE 88MCG TABLET (0.088 MG) PO SCH (06:54)
[2021-06-01] MEDS: FINASTERIDE 5 MG TAB PO SCH (06:54)
[2021-06-01] MEDS: METOPROLOL TART 12.5 MG PER 1/2 TAB PO SCH ×2 (06:55→21:23)
[2021-06-01 08:41] LABS: HEMATOCRIT 32.7 % (42.0-52.0); HEMOGLOBIN 10.4 g/dl (13.5-17.5); MEAN CORPUSCULAR HEMOGLOBIN 32.3 pg (27.0-33.0); MEAN CORPUSCULAR HGB CONC 31.8 g/dl (32.0-36.5); MEAN CORPUSCULAR VOLUME 101.6 fl (80.0-96.0); PLATELET COUNT, AUTOMATED 126 10^3/uL (150-450); RED BLOOD COUNT 3.22 10^6/uL (4.30-6.10); WHITE BLOOD COUNT 6.9 10^3/uL (4.0-10.0)
[2021-06-01 09:02] LABS: CALCIUM LEVEL 8.2 MG/DL (8.8-10.2); CREATININE FOR GFR 3.75 MG/DL (0.70-1.30); GLOMERULAR FILTRATION RATE 16.7 (>42); POTASSIUM SERUM 4.6 MEQ/L (3.5-5.1)
[2021-06-01 09:15] LABS: LYMPHOCYTES 15 % (16-44); METAMYELOCYTES 2 % (0-0); MONOCYTES 4 % (0-5); MYELOCYTES 1 % (0-0); NEUTROPHILS 78 % (28-66)
[2021-06-01 09:18] LABS: PLATELET ESTIMATE DECREASED (NORMAL)
[2021-06-01 09:19] LABS: ANISOCYTOSIS 2+
--- NOTE | 2021-06-01 12:30 | IPN ---
NEPHROLOGY PROGRESS NOTE DATE: 06/01/2021 SUBJECTIVE: Mr. Gomez is seen this morning during hemodialysis. He is still feeling weak and his chronic complaints are unchanged. He denies any nausea, vomiting, dyspnea or chest pain. PHYSICAL EXAMINATION: Temperature 96.8 degrees Fahrenheit, heart rate 58 per minute and respiratory rate 19 per minute. Blood pressure 148/66 mmHg and oxygen saturation 96% on room air. Head: Atraumatic. Neck: Supple and without JVD or thyroid enlargement. Heart: Sounds are regular. Lungs: Clear to auscultation. Abdomen: Soft and nontender and bowel sounds are normal. Extremities: Without any cyanosis or clubbing. Neurologically: He remains at his baseline mentation without any focal deficits. LABORATORY DATA: Today's labs show: WBC count 6.9, hemoglobin 10.4, hematocrit 32.7 and platelets 126. Sodium 138, potassium 4.6, CO2 22, BUN 49, creatinine 3.75, glucose 85 and calcium 8.2. PROBLEMS/PLAN: 1. Acute renal failure superimposed on chronic kidney disease: Patient is nonoliguric, but without any meaningful recovering of kidney function. He is still dialysis dependent and being dialyzed today. Electrolytes are stable and volume status well compensated. We are removing only 1 liter of fluid. 2. Anemia: His anemia is stable at present and he will continue with weekly dose of Aranesp that he is receiving in dialysis. 3. Hypertension: Blood pressure well controlled on current anti-hypertensive meds and no changes are being made today. 4. Weakness particularly in the lower extremities: Patient is currently receiving IVIG and physical rehab. He is likely to go to the acute rehab floor.
[2021-06-01 14:00] VITALS: BP 123/63
[2021-06-01] MEDS: CIPROFLOXACIN 500MG TABLET PO SCH (15:30)
--- NOTE | 2021-06-01 17:14 | IPNPDOC ---
Date Seen The patient was seen on 06/01/21. Progress Note SUBJECTIVE: Patient was seen and examined at bedside. Doing well. No acute events overnight. Seen after dialysis. States that his leg weakness improved. Yesterday, but today he feels a little weaker after dialysis. Blood pressure has been very well controlled 123/63. Room air 99. Temperature 97.8. Pulse 71. Patient denies any chest pain, seizures of breath, palpitations. He seems to be in good spirits. His is at bedside. They both excited for him to go to ARU.. Currently awaiting staffing to be appropriate for him to be transferred. OBJECTIVE PHYSICAL EXAMINATION: VITAL SIGNS: please see below General: NAD, comfortable. She appears fatigued. HEENT: PERRLA, EOMI, sclerae clear Neck: supple, normal ROM, no JVD Respiratory: lungs CTAB, no wheeze, no rales, no crackles CVS: RRR, normal S1, S2, no murmurs Abdo: soft, no masses, no hepatosplenomegaly, BS+, no rebound tenderness Extremities: no edema, pulses 2+ MSK: no joint deformities, normal ROM Neuro: no focal neuro deficits, moving all 4 extremities, CN2-12 intact. Strength 5/5 in all 4 extremities. No nystagmus. Psych: calm, cooperative, AAO x 3 LABORATORY DATA, IMAGING STUDIES, MICROBIOLOGY: Please see below. Bilateral arterial doppler (05/27/21): IMPRESSION: Severe plaquing diffusely bilaterally. Multifocal severe stenoses involving the bilateral superficial femoral arteries. The anterior tibial arteries are occluded bilaterally. There is reconstitution the left anterior tibial artery at the ankle. MR Lumbar Spine (05/27/21): FINDINGS: There is an intervertebral disc visible at S1-S2 which is partially fused. Cortical and medullary bone signal intensity are normal. Vertebral body heights are preserved. There are mild degenerative disc related marrow changes on either side of the L5-S1 disc and there is mild reactive marrow change associated with a Sc hmorl's node at the superior endplate of the L4 vertebral body on the left side. The tip of the conus medullaris is normal in the patient's position and appearance at the L1 level. Normal caliber aorta is seen. No extra vertebral abnormality is appreciated. There is mild motion artifact on the T2 weighted axial sequence. Axial and sagittal images at L1-L2 show no evidence of disc protrusion, spinal stenosis, or foraminal narrowing. At L2-L3, the posterior disc margin is intact. At At L3-L4, there is no evidence of disc protrusion, spinal stenosis, or foraminal narrowing. There is minimal facet hypertrophy. At L4-5, there is mild facet hypertrophy bilaterally. Mild disc space narrowing is seen in there is mild diffuse disc bulging. No spinal stenosis or foraminal narrowing is seen. At L5-S1, there is degenerative disc narrowing and decreased signal intensity. There is mild diffuse disc bulging. There is mild posterior facet hypertrophy bilaterally. No spinal stenosis or foraminal narrowing. IMPRESSION: Degenerative spondylosis changes most pronounced at L5-S1. Osteoarthritic facet hypertrophy is also present bilaterally at L4-5 and to a lesser extent, at L3-4. Echocardiogram: Echo from 05/01/21: 1. Study is of fair technical quality, patient is in atrial flutter with controlled rate. 2. Normal LV size with mild LVH, low normal LV systolic function with estimated EF around 50% to 55%. 3. Dilated hypokinetic right ventricle. 4. Prominent aortic sclerosis resulting in approximately moderate aortic stenosis (mean gradient 20 mmHg) and mild aortic insufficiency. 5. Likely status post mitral valve annuloplasty resulting in mild mitral stenosis (mean gradient 5 mmHg). 6. Very high central venous pressure and moderately severe pulmonary hypertension. 7. At least moderate tricuspid insufficiency. 8. Dilated pulmonary artery. DVT prophylaxis ordered?: SCDs. TEDs. ASSESSMENT AND PLAN: PROBLEMS: # Weakness with multiple falls at home/PAD - accepted at ARU - MR Lumbar spine without spinal stenosis, acute spinal processes - Bilateral arterial dopplers show chronic plaquing, anterior tibial arteries occluded. Limbs are warm, non dusky. D/w Dr. Brito. Appropriate for outpatient workup. Will be happy to see in clinic. - with regard to possible neuropathy, I have requested a consult from Dr. De Souza for assistance. Will check B12, B1, folate, HbA1c, copper levels. - labs from 03/11 reviewed. Elevated kappa and lambda chains are elevated, but ratio is acceptable in setting of CKD per Dr. Marinelli. No Bence Nelson proteins in urine, no MGUS in UPEP. - Dw Dr. De Souza. Replacing B12, Folate deficiencies. Possible presentation of Guillaine-[place]. Will trial IVIG 50 g daily x 3 days Atrial fibrillation with slow ventricular rate - no AC due to frequent GI bleeds/falls - check nocturnal oximetry - EKG showing afib, bifascular block, previously seen on EKG in 04/2021 - need outpatient ischemic workup - is asymptomatic during periods of bradycardia - d/w Dr. Morejon on 05/25/21. No indication for pacemaker as patient is not pr esenting with symptomatic bifascicular blocl, slow afib - overnight on 05/26/21, had several pauses on telemetry, longest lasting 2.08 seconds, with bradycardia to 45. - i discussed the pauses with the patient's head correction officer, Dr. Olivares. Given that the patient is asymptomatic, and is not having significant pauses during the day, there is not indication for pacemaker. He will see patient in the clinic. While it is possible that the patient is experiencing weakness 2/2 bradycardia, it is not possible to definitively attribute the two. - Dr. Olivares recommending not starting anticoagulation at this time, until we are confident in source of anemia - I had another discussion with Dr. Olivares on 06/01/21. Stool occult blood is negative for blood. Nephrology believes that his anemia is related to CKD as well B12. This can be compounded by his B12 and folate deficiencies. In this light, Dr. Olivares recommends resuming eliquis 2.5 mg BID. Neuropathy - Continue gabapentin. - replace B12, folate - Dr. De Souza has been consulted, patient receiving IVIG 50g IV daily x 3 days for possible GB Passive wish - patient examined by Dr. Pearson - refused SSRI - no longer having passive wish - to DC sitter per Dr. Pearson Enterobacter UTI - s/p 3 days ceftriaxone - complete treatment with ciprofloxacin, as cefdinir dosage complex with HD schedule. - as of today, s/p 3 days of ceftriaxone and 4 days of ciprofloxacin - will DC abx. ESRD on HD 2/2 IgA nephropathy. - HD on Tue//Tue, started on 05/01/21 - Nephrology consulted - continue steroid therapy - avoid nephrotoxins Anemia - recieving iron supplementations - pRBC tranfusion with HD - negative fecal occult blood - on aranesp Cirrhosis, etiology unclear - Continue supportive care - fu with GI outpatient Hx of C diff - reviewed records from previous admission - completed course of dificid on 05/10/21 - no longer having diarrhea Thrombocytopenia 2/2 liver cirrhosis - remains stable, PLT 146. - daily CBC CAD - hx CABG - Continue statin, beta constantin - monitor on Tele. BPH - c/w flomax - c/w finasteride Hypothyroidism - Continue levothyroxine. Essential Hypertension - BP well controlled. - c/w metoprolol with holding parameters. DVT prophylaxis. heparin q8h Dispo: I believe that patient is unsafe for discharge home, and has a high risk of readmission due to deconditioning. ARU accepted, pending bed availability. VS, I&O, 24H, Fishbone Vital Signs/I&O Vital Signs Date Time Temp Pulse Resp B/P (MAP) Pulse Ox O2 Delivery O2 Flow Rate FiO2 06/01/21 14:00 97.8 71 20 123/63 (83) 99 Room Air I&O- Last 24 Hours up to 6 AM 06/01/21 06:00 Intake Total 850 ml Output Total 600 ml Balance 250 ml Laboratory Data 24H LABS Laboratory Tests 2 06/01/21 08:26: Immature Granulocyte % (Auto) , Neutrophils (%) (Auto) , Nucleated Red Blood Cells % (auto) 1.9H, Neutrophils 78H, Lymphocytes (Manual) 15L, Monocytes (Manual) 4, Metamyelocytes 2H, Myelocytes 1H, Anisocytosis 2+, Macrocytosis 1+, Platelet Estimate DECREASED, Anion Gap 7L, Glomerular Filtration Rate 16.7L, Calcium Level 8.2L CBC/BMP Laboratory Tests 06/01/21 08:26 Microbiology Microbiology 05/30/21 Stool Occult Blood (JACKI) - Final, Complete 05/29/21 Urine Culture - Final, Complete 05/23/21 Urine Culture - Final, Complete Enterobacter Cloacae Complex BAR PURCELL MD Jun 01, 2021 17:14
[2021-06-01] MEDS: APIXABAN 2.5 MG TAB (ELIQUIS) PO SCH (21:23)
[2021-06-01] MEDS: RAMELTEON 8 MG TAB (ROZEREM) PO SCH (21:24)
[2021-06-01] MEDS: GABAPENTIN 100 MG CAP PO SCH (21:24)
[2021-06-01] MEDS: ACETAMINOPHEN TAB 650MG DOSE (2X325MG) PO PRN (21:25)
[2021-06-01 22:00] VITALS: BP 119/63
[2021-06-02] VITALS (11 sets, daily range): BP systolic 103–135; BP diastolic 52–69
[2021-06-02] MEDS: LEVOTHYROXINE 88MCG TABLET (0.088 MG) PO SCH (06:53)
[2021-06-02 07:07] LABS: HEMATOCRIT 32.1 % (42.0-52.0); MEAN CORPUSCULAR HEMOGLOBIN 31.6 pg (27.0-33.0); MEAN CORPUSCULAR HGB CONC 31.2 g/dl (32.0-36.5); MEAN CORPUSCULAR VOLUME 101.6 fl (80.0-96.0); PLATELET COUNT, AUTOMATED 104 10^3/uL (150-450); RED BLOOD COUNT 3.16 10^6/uL (4.30-6.10); WHITE BLOOD COUNT 6.3 10^3/uL (4.0-10.0)
[2021-06-02 07:22] LABS: ATYPICAL LYMPH 7 % (0-5); BASOPHILS 1 % (0-1); EOSINOPHILS 1 % (0-3); LYMPHOCYTES 14 % (16-44); METAMYELOCYTES 2 % (0-0); MONOCYTES 9 % (0-5); NEUTROPHILS 66 % (28-66); PLATELET ESTIMATE DECREASED (NORMAL)
[2021-06-02 07:23] LABS: ANISOCYTOSIS 2+; POLYCHROMASIA 2+
[2021-06-02 07:27] LABS: CALCIUM LEVEL 7.8 MG/DL (8.8-10.2); CREATININE FOR GFR 2.7 MG/DL (0.70-1.30); GLOMERULAR FILTRATION RATE 24.5 (>42)
[2021-06-02] MEDS ORDERED: IMMUNE GLOBULIN 10% 40 GM in IV 1 EA IV SCH (09:00)
[2021-06-02] MEDS ORDERED: IMMUNE GLOBULIN 10% 10 GM in IV 1 EA IV SCH ×4 (09:00)
[2021-06-02] MEDS: predniSONE 10 MG TAB PO SCH (09:36)
[2021-06-02] MEDS: CYANOCOBALAMIN 1,000MCG/ML VIAL (J3420) IM SCH (09:36)
[2021-06-02] MEDS: METOPROLOL TART 12.5 MG PER 1/2 TAB PO SCH ×2 (09:36→21:32)
[2021-06-02] MEDS: FINASTERIDE 5 MG TAB PO SCH (09:36)
[2021-06-02] MEDS: FOLIC ACID 1 MG TAB PO SCH (09:36)
[2021-06-02] MEDS: THIAMINE 100 MG TAB PO SCH (09:36)
[2021-06-02] MEDS: TAMSULOSIN 0.4 MG CAP PO SCH (09:36)
[2021-06-02] MEDS: APIXABAN 2.5 MG TAB (ELIQUIS) PO SCH ×2 (09:36→21:31)
--- NOTE | 2021-06-02 12:44 | IPN ---
PROGRESS NOTE DATE: 06/02/2021 SUBJECTIVE: Mr. Gomez is seen this morning on his bedside. He is sitting in the chair at the time of my visit. He was dialyzed yesterday and reports feeling weak after dialysis. Today, he is in better spirits and reports that he ambulated a couple of times in his room and has a plan for going out in the hallway for a walk. He feels that his weakness is slightly improved. He remains on IV Ig therapy. OBJECTIVE: VITAL SIGNS: Temperature is 97.5 degrees Fahrenheit, heart rate is 66 per minute and respiratory rate is 18 per minute. Blood pressure 116/59 mmHg and oxygen saturation 98% on room air. HEENT: Head is atraumatic. NECK: Supple without JVD or thyroid enlargement. Dialysis catheter is intact on right upper chest. HEART: Heart sounds are regular. LUNGS: Clear to auscultation. ABDOMEN: Soft and nontender, bowel sounds are normal. EXTREMITIES: Without any cyanosis or clubbing. NEUROLOGIC: He is grossly intact without any focal deficit. LABORATORY DATA: Today's labs showed a WBC of 6.3, hemoglobin 10.0, hematocrit 32.1. Sodium of 139, potassium of 4.0, CO2 24, BUN 32 and creatinine 2.7, glucose is 81, calcium 7.8. PROBLEMS: 1. Acute renal failure superimposed on chronic kidney disease. Patient is nonoliguric but still dialysis dependent, he was dialyzed yesterday and we will check his renal profile again tomorrow. He is most likely going to be dialyzed again tomorrow. 2. Anemia. His anemia has improved and he remains on weekly dose of Aranesp 200 mcg. 3. Lower extremity weakness. The patient is currently on IV Ig therapy and he feels that his weakness is gradually improving. He continues with Physical Therapy, awaiting for acute rehab. 4. Hypertension, blood pressure well-controlled on current antihypertensive medications.
--- NOTE | 2021-06-02 17:12 | IPNPDOC ---
Subjective Date Seen The patient was seen on 06/02/21. Subjective Chief Complaint/HPI Reports that he feels his legs are stronger and was able to work more with physical therapy. Objective Physical Examination General Exam: Positive: Alert, Cooperative, No Acute Distress Eye Exam: Positive: PERRLA, Conjunctiva & lids normal, EOMI; Negative: Sclera icteric Neck Exam: Positive: Supple; Negative: JVD, thyromegaly Chest Exam: Positive: Clear to auscultation, Normal air movement Heart Exam: Positive: Rate Normal, Irregular Rhythm, Normal S1, Normal S2; Negative: Murmurs, Rubs Abdomen Exam: Positive: Normal bowel sounds, Soft; Negative: Tenderness Extremity Exam: Negative: Clubbing, Cyanosis, Edema Skin Exam: Positive: Nl turgor and temperature; Negative: Rash, Breakdown Neuro Exam: Positive: Normal Speech, Normal Tone Assessment /Plan Assessment 75-year-old man with past medical history of IgA nephropathy, acute kidney injury requiring hemodialysis for the past 1 month with the no return of renal function yet, recent C. difficile, atrial fibrillation chronic, hypertension, CAD , peripheral arterial disease , cirrhosis of liver who was admitted at [facility] due to difficulty getting out of a chair. The patient has history of end-stage renal disease on hemodialysis. He fell at the clinic. He was unable to get himself up. At home, he fell again in precise winder hours when he tried to get out of bed and tried going to the bathroom. His legs were too weak and he was unable to stand and get out of chair. 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 Mild multilevel cervical and lumbosacral degenerative disc disease. Vitamin B12, folic acid and vitamin D [id number] def, Possible GB syndrome MR Lumbar spine without spinal stenosis, acute spinal pathology As per Dr. De Souza. Replacing B12, Folate deficiencies. Possible presentation of Guillaine-[place]. Trial IVIG 50 g daily x 3 days Atrial fibrillation with slow ventricular rate EKG showing afib, bifascular block, previously seen on EKG in 04/2021 need outpatient ischemic workup overnight on 05/26/21, had several pauses on telemetry, longest lasting 2.08 seconds, with bradycardia to 45. As per Dr. Olivares. Given that the patient is asymptomatic, and is not having significant pauses during the day, there is not indication for pacemaker. He will see patient in the clinic. Stool occult blood is negative for blood. Nephrology believes that his anemia is related to CKD as well B12 def. This can be compounded by his B12 and folate deficiencies. In this light, Dr. Olivares recommended resuming eliquis 2.5 mg BID. Neuropathy Continue gabapentin. replace B12, folate Dr. De Souza has been consulted, patient receiving IVIG 50g IV daily x 3 days for possible GB PAD Bilateral arterial dopplers show chronic plaquing, anterior tibial arteries occluded. Limbs are warm, non dusky. D/w Dr. Brito. Appropriate for outpatient workup. Will be happy to see in clinic. Passive wish patient examined by Dr. Pearson refused SSRI no longer having passive wish Enterobacter UTI s/p 3 days ceftriaxone completed treatment with ciprofloxacin CHARANJIT on CKD,stage 3 currently requiring HD. still no renal recovery so remains dependent on dialysis. Biopsy showed mesangial proliferative IgA nephropathy with acute interstitial nephritis on April 06, 2021 wit creatinine of 3.7. Steroids started with improvement to 2.3 on 04/22/21. After this he had diarrhea, hypotension with c diff infection, fall at home when he was down on the floor for 7 hours, afib with rvr and creatinine went up to 6.3 on 04/30/2021 with no improvement with hydration. HD was initiated on 05/01/2021 continue steroid therapy avoid nephrotoxins Anemia on kidney disease and iron def. receiving iron supplementations pRBC tranfusion with HD negative fecal occult blood on aranesp Cirrhosis, etiology unclear Continue supportive care fu with GI outpatient Hx of C diff completed course of dificid on 05/10/21 no longer having diarrhea Thrombocytopenia 2/2 liver cirrhosis monitor platelets CAD hx CABG Continue statin, beta constantin monitor on Tele. BPH flomax, finasteride Hypothyroidism Continue levothyroxine. Essential Hypertension BP well controlled. c/w metoprolol with holding parameters. History of mitral valve annuloplasty and aortic stenosis Chronic gout Allopurinol Plan/VTE VTE Prophylaxis Ordered?: Yes VS, I&O, 24H, Fishbone Vital Signs/I&O Vital Signs Date Time Temp Pulse Resp B/P (MAP) Pulse Ox O2 Delivery O2 Flow Rate FiO2 06/02/21 16:26 98.2 69 18 135/66 (89) 94 Room Air I&O- Last 24 Hours up to 6 AM 06/02/21 06:00 Intake Total 1660 ml Output Total 1990 ml Balance -330 ml Laboratory Data 24H LABS Laboratory Tests 2 06/02/21 06:48: Immature Granulocyte % (Auto) , Neutrophils (%) (Auto) , Nucleated Red Blood Cells % (auto) 2.6H, Neutrophils 66, Lymphocytes (Manual) 14L, Monocytes (Manual) 9H, Eosinophils (Manual) 1, Basophils (Manual) 1, Metamyelocytes 2H, Atypical Lymphocytes 7H, Polychromasia 2+, Anisocytosis 2+, Platelet Estimate DECREASED, Anion Gap 5L, Glomerular Filtration Rate 24.5L, Calcium Level 7.8L CBC/BMP Laboratory Tests 06/02/21 06:48 Microbiology Microbiology 05/30/21 Stool Occult Blood (JACKI) - Final, Complete 05/29/21 Urine Culture - Final, Complete 05/23/21 Urine Culture - Final, Complete Enterobacter Cloacae Complex TADEO LUI MD Jun 02, 2021 17:12
[2021-06-02] MEDS: RAMELTEON 8 MG TAB (ROZEREM) PO SCH (21:32)
[2021-06-02] MEDS: GABAPENTIN 100 MG CAP PO SCH (21:32)
[2021-06-02] MEDS: ACETAMINOPHEN TAB 650MG DOSE (2X325MG) PO PRN (21:33)
[2021-06-03 06:00] VITALS: BP 142/71
[2021-06-03] MEDS: APIXABAN 2.5 MG TAB (ELIQUIS) PO SCH (06:26)
[2021-06-03] MEDS: predniSONE 10 MG TAB PO SCH (06:26)
[2021-06-03] MEDS: LEVOTHYROXINE 88MCG TABLET (0.088 MG) PO SCH (06:26)
[2021-06-03] MEDS: TAMSULOSIN 0.4 MG CAP PO SCH (06:26)
[2021-06-03 06:27] VITALS: BP 142/71
[2021-06-03] MEDS: FINASTERIDE 5 MG TAB PO SCH (06:27)
[2021-06-03] MEDS: FOLIC ACID 1 MG TAB PO SCH (06:27)
[2021-06-03] MEDS: THIAMINE 100 MG TAB PO SCH (06:27)
[2021-06-03] MEDS: METOPROLOL TART 12.5 MG PER 1/2 TAB PO SCH (06:27)
[2021-06-03] MEDS ORDERED: ELIQ2.5T PO (10:16)
[2021-06-03] MEDS ORDERED: METO1TAB87 PO (10:16)
[2021-06-03] MEDS ORDERED: THIA100TA PO (10:16)
[2021-06-03] MEDS ORDERED: FOLI1TAB11 PO (10:16)
--- NOTE | 2021-06-03 11:06 | DS.PDOC ---
Discharge Summary General Date of Admission May 25, 2021 at 20:39 Date of Discharge 06/03/21 Discharge Summary PROCEDURES PERFORMED DURING STAY: [None]. 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 Vitamin B12, folic acid and vitamin D [id number] def, IgA nephropathy diagnosed in March 2021 Acute kidney injury on chronic kidney disease currently on acute hemodialysis Anemia of chronic disease and iron deficiency Cirrhosis of liver Thrombocytopenia Chronic atrial fibrillation with slow ventricular rate CAD status post CABG History of mitral valve annuloplasty Aortic stenosis Hypertension Hypothyroid BPH Gout Enterobacter UTI Depression Recent history of C. difficile in April 2021 COMPLICATIONS/CHIEF COMPLAINT: Weakness, Multiple Falls. HOSPITAL COURSE: 75-year-old man with past medical history of IgA nephropathy, acute kidney injury requiring hemodialysis for the past 1 month with the no return of renal function yet, recent C. difficile, atrial fibrillation chronic, hypertension, CAD , peripheral arterial disease , cirrhosis of liver who was admitted at [facility] due to difficulty getting out of a chair. The patient has history of end-stage renal disease on hemodialysis. He fell at the clinic. He was unable to get himself up. At home, he fell again in winder operator hours when he tried to get out of bed and tried going to the bathroom. His legs were too weak and he was unable to stand and get out of chair. 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 Mild multilevel cervical and lumbosacral degenerative disc disease. 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 De Souza. Replacing B12, Folate deficiencies. 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 Trial IVIG 50 g daily x 3 days Atrial fibrillation with slow ventricular rate EKG showing afib, bifascular block, previously seen on EKG in 04/2021 need outpatient ischemic workup overnight on 05/26/21, had several pauses on telemetry, longest lasting 2.08 s econds, with bradycardia to 45. As per Dr. Olivares. Given that the patient is asymptomatic, and is not having significant pauses during the day, there is not indication for pacemaker. He will see patient in the clinic. Stool occult blood is negative for blood. Nephrology believes that his anemia is related to CKD as well B12 def. This can be compounded by his B12 and folate deficiencies. In this light, Dr. Olivares recommended resuming eliquis 2.5 mg BID. Neuropathy Continue gabapentin. replace B12, folate Dr. De Souza has been consulted, patient receiving IVIG 50g IV daily x 3 days for possible GB PAD Bilateral arterial dopplers show chronic plaquing, anterior tibial arteries occluded. Limbs are warm, non dusky. D/w Dr. Brito. Appropriate for outpatient workup. Will be happy to see in clinic. Passive wish patient examined by Dr. Pearson refused SSRI no longer having passive wish Enterobacter UTI s/p 3 days ceftriaxone completed treatment with ciprofloxacin CHARANJIT on CKD,stage 3 currently requiring HD. still no renal recovery so remains dependent on dialysis. Biopsy showed mesangial proliferative IgA nephropathy with acute interstitial nephritis on April 06, 2021 wit creatinine of 3.7. Steroids started with improvement to 2.3 on 04/22/21. After this he had diarrhea, hypotension with c diff infection, fall at home when he was down on the floor for 7 hours, afib with rvr and creatinine went up to 6.3 on 04/30/2021 with no improvement with hydration. HD was initiated on 05/01/2021 continue steroid therapy avoid nephrotoxins Anemia on kidney disease and iron def. receiving iron supplementations pRBC tranfusion with HD negative fecal occult blood on aranesp Cirrhosis, etiology unclear Continue supportive care fu with GI outpatient Hx of C diff completed course of dificid on 05/10/21 no longer having diarrhea Thrombocytopenia 2/2 liver cirrhosis monitor platelets CAD hx CABG Continue statin, beta constantin monitor on Tele. BPH flomax, finasteride Hypothyroidism Continue levothyroxine. Essential Hypertension BP well controlled. c/w metoprolol with holding parameters. History of mitral valve annuloplasty and aortic stenosis Chronic gout Allopurinol DISCHARGE MEDICATIONS: Please see below. ALLERGIES: Please see below. PHYSICAL EXAMINATION ON DISCHARGE: VITAL SIGNS: Please see below. General Exam: Positive: Alert, Cooperative, No Acute Distress Eye Exam: Positive: PERRLA, Conjunctiva & lids normal, EOMI; Negative: Sclera icteric Neck Exam: Positive: Supple; Negative: JVD, thyromegaly Chest Exam: Positive: Clear to auscultation, Normal air movement Heart Exam: Positive: Rate Normal, Irregular Rhythm, Normal S1, Normal S2; Negative: Murmurs, Rubs Abdomen Exam: Positive: Normal bowel sounds, Soft; Negative: Tenderness Extremity Exam: Negative: Clubbing, Cyanosis, Edema Skin Exam: Positive: Nl turgor and temperature; Negative: Rash, Breakdown Neuro Exam: Positive: Normal Speech, Normal Tone LABORATORY DATA: Please see below. ACTIVITY: [As tolerated]. DIET: As tolerated DISCHARGE PLAN: To ARU DISCHARGE INSTRUCTIONS: Follow-up Dr. De Souza in 3 to 4 weeks, follow-up Dr. Marinelli as per outpatient schedule GI referral for cirrhosis ITEMS TO FOLLOWUP ON ON OUTPATIENT: Platelet count DISCHARGE CONDITION: [Stable]. TIME SPENT ON DISCHARGE: 35 minutes. Vital Signs/I&Os Vital Signs Date Time Temp Pulse Resp B/P (MAP) Pulse Ox O2 Delivery O2 Flow Rate FiO2 06/03/21 06:27 62 142/71 06/03/21 06:00 97.6 18 99 Room Air I&O- Last 24 Hours up to 6 AM 06/03/21 06:00 Intake Total 1560 ml Output Total 800 ml Balance 760 ml Microbiology Microbiology 05/30/21 Stool Occult Blood (JACKI) - Final, Complete 05/29/21 Urine Culture - Final, Complete Discharge Medications Scheduled Apixaban (Eliquis) 2.5 Mg Tablet, 2.5 MG PO BID Atorvastatin Calcium (Atorvastatin Calcium) 20 Mg Tablet, 20 MG PO QHS, (Reported) Finasteride (Finasteride) 5 Mg Tablet, 5 MG PO DAILY, (Reported) Folic Acid (Folic Acid) 1 Mg Tablet, 1 MG PO DAILY Gabapentin (Gabapentin) 100 Mg Capsule, 200 MG PO QHS, (Reported) Levothyroxine Sodium (Levoxyl) 88 Mcg Tab, 88 MCG PO DAILY, (Reported) Metoprolol Succinate (Metoprolol Succinate) 50 Mg Tab.er.24h, 50 MG PO DAILY, (Reported) Metoprolol Tartrate (Metoprolol Tartrate) 25 Mg Tablet, 12.5 MG PO BID Prednisone (Prednisone) 10 Mg Tablet, 10 MG PO DAILY, (Reported) Ramelteon (Rozerem) 8 Mg Tablet, 8 MG PO QHS, (Reported) Tamsulosin HCl (Flomax) 0.4 Mg Capsule, 0.4 MG PO DAILY, (Reported) TAKES AROUND LUNCHTIME Thiamine Hcl (Vitamin B-1) 100 Mg Tablet, 100 MG PO DAILY Allergies Coded Allergies: No Known Allergies (Verified , 08/01/18) TADEO LUI MD Jun 03, 2021 11:06
[2021-06-03] MEDS: CYANOCOBALAMIN 1,000MCG/ML VIAL (J3420) IM SCH (13:23)
--- NOTE | 2021-06-13 16:47 | IPN ---
NEPHROLOGY PROGRESS NOTE DATE: 06/13/2021 SUBJECTIVE: Mr. Gomez is seen and examined this morning in the Hemodialysis Unit receiving his maintenance treatment. He is in good spirits. He has no complaints. Dialysis has been uneventful. He has noticed some new leg edema, but he denies any shortness of breath. He remains dialysis dependent at this time with ongoing rise in interdialytic creatinine and no sign of renal recovery at present. OBJECTIVE: PHYSICAL EXAMINATION: VITAL SIGNS: Temperature 97.7, pulse 70, respiratory rate 14, blood pressure 106/62, saturating 97% on room air. INTAKE AND OUTPUT: Intake yesterday was 1,190. Goal dialysis fluid removal today is 1.5 liters. Weight in the bed scale today is not recorded. GENERAL APPEARANCE: The patient is seen lying in bed receiving his treatment, awake, alert, oriented x3, elderly male in no distress, in good spirits. HEENT: The extraocular muscles are intact. Tongue is moist. NECK: Supple. CHEST: There is a tunneled hemodialysis catheter in the right chest wall that is presently in use. HEART: Regular, S1, S2. Peripheral pulses are palpable (radial). LUNGS: Clear to auscultation. No crackles or rales. ABDOMEN: Soft and nontender and there are bowel sounds. EXTREMITIES: 1+ pitting edema in the legs which is new and was not present the last time I saw him. SKIN: Warm and dry. MUSCULOSKELETAL: He moves all four extremities on command. LABORATORY STUDIES: Sodium 143, potassium 4.5, bicarbonate 25, BUN 40, creatinine 3.1, glucose 76. Hemoglobin 11.7, platelet count 126. CURRENT INPATIENT MEDICATIONS: The patient's medications were reviewed by myself, and I am starting him on Torsemide 20 mg daily. There are no other medication changes noted. PROBLEMS: 1. Acute kidney injury superimposed on chronic kidney disease stage 4 - The patient's baseline creatinine is around 2. He has a history of IgA nephropathy. He started hemodialysis on April 30 in the setting of severe D-diff colitis at that time. There is no sign of renal recovery at present. He continues to have a rise in his interdialytic creatinine. He also has new leg edema that is mild but was not present when I last saw him a couple weeks ago. He will continue with hemodialysis in the outpatient setting, an I am also going to start him on a diuretic (Torsemide 20 mg daily) and we will also get vein mapping while he is in the hospital in anticipation of possible fistula creation down the road if his renal function does not improved. 2. Decompensated right heart failure I reviewed the last echocardiogram which is from May 10, 2021 and it showed a dilated and hypokinetic right ventricle in the setting of moderate to severe pulmonary hypertension and also with moderate aortic stenosis. The patient has new leg edema. We are removing 2 liters with his dialysis treatments today, and I am also going to start him on oral Torsemide, and he should follow a fluid restriction once he is discharged. He will continue to follow up in the hemodialysis unit for 3x weekly treatments, and we will keep an eye on his renal function. There are no signs of renal recovery at present. 3. Anemia of chronic renal failure - hemoglobin is optimal and it will be managed through the outpatient dialysis unit. Aranesp is presently on hold. 4. Thrombocytopenia - platelet counts have been in recovery and have been improving. He is receiving a low dose of Heparin with his dialysis treatments. 5. 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 He is clinically improving. 6. IgA neuropathy his Prednisone dose will be further adjusted in the outpatient setting. Continue Prednisone 10 mg daily at this time.
== END 2021-06-03 14:52 | DRG 91 ==
LOC: M ED 17:44 → EDBD 17:44 → M ED INP 17:45 → ENRESERV 05-23 01:05 → M MSPAV 05-23 01:34 → OBSVTOIN 05-25 20:39 → M ICU 05-26 14:58 → M PCU 05-27 16:18 → M MSPAV 05-31 02:36
PROVIDERS: ADMIT General Practice; ATTEND Internal Medicine Nephrology
PROC: 5A1D70Z Performance of Urinary Filtration, Intermittent, Less than 6 Hours Per Day (ICD-10-PCS; principal; 2021-05-25)
DX: R29.6 Repeated falls (principal); N18.6 End stage renal disease; G61.0 Guillain-Barre syndrome; N17.9 Acute kidney failure, unspecified; I48.20 Chronic atrial fibrillation, unspecified; I12.0 Hypertensive chronic kidney disease with stage 5 chronic kidney disease or end stage renal disease; R45.851 Suicidal ideations; N39.0 Urinary tract infection, site not specified; G72.0 Drug-induced myopathy; I73.9 Peripheral vascular disease, unspecified; M51.36 Other intervertebral disc degeneration, lumbar region; M50.30 Other cervical disc degeneration, unspecified cervical region; E55.9 Vitamin D deficiency, unspecified; E53.8 Deficiency of other specified B group vitamins; Z99.2 Dependence on renal dialysis; D63.1 Anemia in chronic kidney disease; D50.9 Iron deficiency anemia, unspecified; K74.60 Unspecified cirrhosis of liver; I25.10 Atherosclerotic heart disease of native coronary artery without angina pectoris; Z95.5 Presence of coronary angioplasty implant and graft; E03.9 Hypothyroidism, unspecified; N40.0 Benign prostatic hyperplasia without lower urinary tract symptoms; M10.9 Gout, unspecified; F32.9 Major depressive disorder, single episode, unspecified; Z20.822 Contact with and (suspected) exposure to COVID-19; Z87.891 Personal history of nicotine dependence; D69.6 Thrombocytopenia, unspecified; Z79.899 Other long term (current) drug therapy; B95.2 Enterococcus as the cause of diseases classified elsewhere

== ENCOUNTER 2021-06-03 10:14 | Inpatient (IN) | payer MEDICARE, OTHER ==
[~2021-06-03] VITALS: Ht 177.8 cm; Wt 72.4 kg
[~2021-06-03 10:14] MED LIST changes: +ROZE8TAB16 PO
[2021-06-03] MEDS ORDERED: THIA100TA PO (10:16)
[2021-06-03] MEDS ORDERED: METO1TAB87 PO (10:16)
[2021-06-03] MEDS ORDERED: FOLI1TAB11 PO (10:16)
[2021-06-03] MEDS ORDERED: ELIQ2.5T PO (10:16)
--- NOTE | 2021-06-03 13:01 | IPN ---
PROGRESS NOTE DATE: 06/03/2021 SUBJECTIVE: Mr. Gomez is seen this morning on his bedside during hemodialysis. He is feeling well and denies any new complaints. He has been trying to get some exercise and physical therapy. He is still waiting for acute rehabilitation. OBJECTIVE: On physical examination, temperature 97.6 degrees Fahrenheit, heart rate 62 per minute and respiratory rate 18 per minute. Blood pressure 142/70 mmHg and oxygen saturation 99% on room air. Head is atraumatic. Neck supple and without jugular venous distention (JVD) or thyroid enlargement. Hemodialysis catheter and right internal jugular vein is intact. Heart sounds are regular and lungs clear to auscultation. Abdomen is soft and nontender and bowel sounds are normal. Extremities without any cyanosis or clubbing. Neurologically, he is awake, alert and at his baseline mentation. The patient did have any new labs from today. PROBLEMS: 1. Acute renal failure superimposed on chronic kidney disease. The patient remains dialysis dependent and is being dialyzed today. He is tolerating his dialysis very well. 2. Anemia. His anemia has improved and stable. He is receiving once a week Aranesp, which will be continued. Complete blood count (CBC) will be checked again prior to next dialysis. 3. Hypertension. Blood pressure well controlled on current antihypertensive medications and his volume status is also well compensated. 4. Weakness and deconditioning. The patient is going to be receiving IVIg for demyelinating neuropathy. He continues with physical therapy and feels that he is slowly improving. He is waiting for acute rehab.
[2021-06-03 15:10] VITALS: BP 139/63
[2021-06-03] MEDS ORDERED: BISACODYL 10 MG SUPP PR PRN (15:45)
[2021-06-03] MEDS ORDERED: ACETAMINOPHEN TAB 650MG DOSE (2X325MG) PO PRN (15:45)
[2021-06-03] MEDS: REMEDY PHYTOPLEX Z-GUARD PASTE 113GM TUBE (FROM STOREROOM PRODUCT) TOP SCH ×2 (16:00→21:27)
[2021-06-03 20:00] VITALS: BP 151/74
[2021-06-03] MEDS: DOCUSATE SODIUM 100MG CAPSULE PO SCH (21:26)
[2021-06-03] MEDS: RAMELTEON 8 MG TAB (ROZEREM) PO SCH (21:26)
[2021-06-03] MEDS: ATORVASTATIN 20 MG TAB PO SCH (21:26)
[2021-06-03] MEDS: APIXABAN 2.5 MG TAB (ELIQUIS) PO SCH (21:26)
[2021-06-03] MEDS: GABAPENTIN 100 MG CAP PO SCH (21:26)
[2021-06-03] MEDS: METOPROLOL TART 12.5 MG PER 1/2 TAB PO SCH (21:26)
[2021-06-03] MEDS: SENNA 8.6 MG TAB (SENOKOT) PO SCH (21:26)
[2021-06-04] MEDS: LEVOTHYROXINE 88MCG TABLET (0.088 MG) PO SCH (05:52)
[2021-06-04 06:00] VITALS: BP 160/70
[2021-06-04 07:40] LABS: HEMATOCRIT 33.3 % (42.0-52.0); HEMOGLOBIN 10.3 g/dl (13.5-17.5); MEAN CORPUSCULAR HEMOGLOBIN 31.8 pg (27.0-33.0); MEAN CORPUSCULAR HGB CONC 30.9 g/dl (32.0-36.5); MEAN CORPUSCULAR VOLUME 102.8 fl (80.0-96.0); RED BLOOD COUNT 3.24 10^6/uL (4.30-6.10); WHITE BLOOD COUNT 6.8 10^3/uL (4.0-10.0)
[2021-06-04 07:43] LABS: PLATELET COUNT, AUTOMATED 86 10^3/uL (150-450)
[2021-06-04 08:02] LABS: ALBUMIN 2.2 GM/DL (3.2-5.2); BILIRUBIN,TOTAL 0.4 MG/DL (0.2-1.0); CALCIUM LEVEL 8.4 MG/DL (8.8-10.2); CREATININE FOR GFR 2.68 MG/DL (0.70-1.30); GLOMERULAR FILTRATION RATE 24.7 (>42); POTASSIUM SERUM 4.8 MEQ/L (3.5-5.1); TOTAL PROTEIN 7.4 GM/DL (6.4-8.2)
[2021-06-04 08:24] LABS: ATYPICAL LYMPH 1 % (0-5); BASOPHILS 1 % (0-1); LYMPHOCYTES 24 % (16-44); METAMYELOCYTES 1 % (0-0); MONOCYTES 6 % (0-5); MYELOCYTES 1 % (0-0); NEUTROPHILS 64 % (28-66); PLATELET ESTIMATE DECREASED (NORMAL); POLYCHROMASIA 1+
[2021-06-04] MEDS: TAMSULOSIN 0.4 MG CAP PO SCH (09:38)
[2021-06-04] MEDS: predniSONE 10 MG TAB PO SCH (09:38)
[2021-06-04] MEDS: PANTOPRAZOLE 40MG TAB (PROTONIX) PO SCH (09:38)
[2021-06-04] MEDS: THIAMINE 100 MG TAB PO SCH (09:38)
[2021-06-04] MEDS: CYANOCOBALAMIN 500 MCG TAB PO SCH (09:38)
[2021-06-04] MEDS: METOPROLOL TART 12.5 MG PER 1/2 TAB PO SCH ×2 (09:38→20:25)
[2021-06-04] MEDS: APIXABAN 2.5 MG TAB (ELIQUIS) PO SCH ×2 (09:38→20:25)
[2021-06-04] MEDS: DOCUSATE SODIUM 100MG CAPSULE PO SCH ×2 (09:38→20:25)
[2021-06-04] MEDS: FINASTERIDE 5 MG TAB PO SCH (09:38)
[2021-06-04] MEDS: FOLIC ACID 1 MG TAB PO SCH (09:38)
[2021-06-04] MEDS: REMEDY PHYTOPLEX Z-GUARD PASTE 113GM TUBE (FROM STOREROOM PRODUCT) TOP SCH ×3 (09:39→20:26)
--- NOTE | 2021-06-04 11:14 | HPEPDOC ---
Duct Cleaner Note DATE OF ADMISSION: 06-03-21 DATE OF SERVICE: 06-04-21 TIME OF ADMISSION: Please refer to physician's admission order. 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 Neurology also suspected patients weakness was due to steroid-induced myopathy, vitamin b12 and folate deficiency, multi-level cervical lumbosacral DDD, and peripheral polyneuropathy. He was instructed to follow-up with neurology as outpatient for NCS/EMG. He had episodes of bradycardia and case was discussed with cardiology who did not recommend PM at this time given patient was asymptomatic. He had Enterobacter UTI and was treated with Ciprofloxacin, he had ongoing anemia which required blood transfusions, aranesp, and iron supplements. Eventually he was transitioned to renally dosed eliquis as his FOBT was negative and anemia source decide to be due to ESRD. He was noted to have impairments in mobility and ADLs and deemed medically appropriate for discharge to ARU. REVIEW OF SYSTEMS: The following is a completed review of systems and has been reviewed. Review of systems otherwise unremarkable. PAIN: Patient self reports no pain EYES: No recent vision changes EARS, NOSE, & THROAT: No throat pain, or dysphagia, or rhinorrhea CARDIOVASCULAR: Denies chest pain or palpitations PULMONARY: Denies shortness of breath GASTROINTESTINAL: Denies constipation/diarrhea GENITOURINARY: denies dysuria MUSCULOSKELETAL: generalized weakness NEUROLOGICAL: +peripheral polyneuropathy HEMATOLOGICAL: +anemia SKIN:denies rash PSYCHIATRIC: Unremarkable All other review of systems found to be negative. PAST MEDICAL HISTORY: as per HPI PAST SURGICAL HISTORY: CABG, mitral valve annuloplasty ALLERGIES: Please see below. MEDICATIONS: Please see below. SOCIAL HISTORY: Former smoker, former ETOH, no illicit drugs DIET: low sodium PHYSICAL EXAMINATION: VITAL SIGNS: Please see below. GENERAL: Pleasant and cooperative. No acute distress. HEENT: PERRL. Extraocular movements intact. Clear conjunctiva, +dentures CARDIOVASCULAR: [Regular rate and rhythm. No murmurs, rubs, or gallops]. LUNGS: Clear to auscultation bilaterally. No wheezes. No rhonchi ABDOMEN: distended, no guarding, non TTP, +bowel sounds NEUROLOGICAL: Alert and oriented times three. Cranial nerves II through XII grossly intact. Sensation diminished to light touch bilat EL in stocking pattern EXTREMITIES: 5\5 strength bilateral upper extremities. 4+\5 strength right lower extremity. 4+/5 strength in left lower extremity. +pedal pulses SKIN right chest port, scattered ecchymosis LABORATORY DATA: Please see below. IMAGING: Imaging documentation personally reviewed by record FUNCTIONAL STATUS: Premorbid: Mod-Independent with all activities of daily life as well as mobility On Admission:contact guard for bed mobility, functional transfers, ambulation, dressing, toileting GOALS: Mod-I to supervision for bed mobility, functional transfers, ambulation, dressing, toileting, bathing ASSESSMENT:76-year-old M with past medical history of ESRD, Afib who presents status post worsening bilateral LE weakenss possibly due to Guillain barre and peripheral polyneuropathy s/p IVIG PLAN: 1. Rehab- PT/OT advance mobility and ADls, strengthen/stretch/maintain ROM all 4 limbs 2. 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 Cardiac- hx of Afib with episodes of asymptomatic and occasional bradycardia- c/u Eliquis and low dose metoprolol with holding parameters -f/u cardiology for possible PM in future -HLD c/u statin -medicine consulted to assist in overall management 4. Resp- monitor for infection -severe pulmonary HTN monitor for need for supplemental 02 5. Vasc-hx of PAD with Bilateral arterial dopplers show chronic plaquing, anterior tibial arteries occluded, f/u D/w Dr. Brito for outpatient w/u 6. GI- cirrhosis etiology unknown f/u GI outpatient -C diff, completed Dificid dosing 05-10-21, clarifying with infection control duration of contact precautions -GI ppx- protonix 7. Heme- thrombocytopenia from cirrhosis, monitor platelets -anemia of chronic disease, aranesp and prbcs per renal 8. 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 Pain- tylnenol prn, gabapentin for neuropathy 10. Endo- hx of hypothyroidism c/u synthroid 11. - BPH c/u proscar and flomax 12. psych- rozerem for insomnia 13. Dispo- tbd POST ADMISSION PHYSICIAN EVALUATION: Medical and functional status: Description of medical status, medical assessment: As above. Rehabilitation diagnosis and current and prior cold morbid medical conditions as above. Risk of complications and plans to mitigate them as above. Description of functional status current status is as above. Prior status as above. Status compared to preadmission: There are no clinically significant differences between the patient's current status and the information described on the preadmission screening document. Treatment plan anticipated: Treatment plan is as described above. Required dis ciplines including physical therapy, occupational therapy, others as noted above. Intensity of services: 3 hours a day, 6 days a week. Special considerations: There are no specific special or safety considerations that would likely preclude immediate implementation of an intensive rehabilitation program or subsequently influence the plan of care ATTESTATION: Considering all the information above, it is my best judgment that this patient requires intensive rehabilitation therapy as described above and an inpatient hospital environment due to the complexity of nursing, medical, and rehabilitation needs required by the patient. Furthermore, this patient can reasonably be expected to participate in an benefit from an inpatient rehabilitation stay with an interdisciplinary team approach to the delivery of rehabilitation care under the direction and supervision of rehabilitation physician PROGNOSIS: good ESTIMATED LENGTH OF STAY:12-14 days. PROJECTED DISCHARGE DESTINATION: Home with family support and any durable medical equipment required to increase functional safety and mobility TIME SPENT COUNSELING AND COORDINATING INITIAL CARE: Greater than 70 minutes. Vital Signs Vital Sign - Last 24 Hours 06/03/21 06/03/21 06/03/21 06/04/21 15:10 20:00 21:26 06:00 Temp 97.5 97.5 97.6 Pulse 70 69 69 65 Resp 18 18 18 B/P (MAP) 139/63 (88) 151/74 (99) 151/74 160/70 (100) Pulse Ox 99 94 97 O2 Delivery Room Air Room Air Room Air Laboratory Data CBC/BMP Laboratory Tests 06/04/21 07:16 Labs 24H Laboratory Tests 2 06/04/21 07:16: Immature Granulocyte % (Auto) , Neutrophils (%) (Auto) , Nucleated Red Blood Cells % (auto) 2.5H, Neutrophils 64, Band Neutrophils 2, Lymphocytes (Manual) 24, Monocytes (Manual) 6H, Basophils (Manual) 1, Metamyelocytes 1H, Myelocytes 1H, Atypical Lymphocytes 1, Polychromasia 1+, Macrocytosis 2+, Platelet Estimate DECREASED, Immature Platelet Fraction 4.6, Anion Gap 4L, Glomerular Filtration Rate 24.7L, Calcium Level 8.4L, Total Bilirubin 0.4, Aspartate Amino Transf (AST/SGOT) 34, Alanine Aminotransferase (ALT/SGPT) 47, Alkaline Phosphatase 78, Total Protein 7.4, Albumin 2.2L, Albumin/Globulin Ratio 0.4 Home Medications Scheduled Apixaban (Eliquis) 2.5 Mg Tablet, 2.5 MG PO BID Atorvastatin Calcium (Atorvastatin Calcium) 20 Mg Tablet, 20 MG PO QHS, (Reported) Finasteride (Finasteride) 5 Mg Tablet, 5 MG PO DAILY, (Reported) Folic Acid (Folic Acid) 1 Mg Tablet, 1 MG PO DAILY Gabapentin (Gabapentin) 100 Mg Capsule, 200 MG PO QHS, (Reported) Levothyroxine Sodium (Levoxyl) 88 Mcg Tab, 88 MCG PO DAILY, (Reported) Metoprolol Tartrate (Metoprolol Tartrate) 25 Mg Tablet, 12.5 MG PO BID Prednisone (Prednisone) 10 Mg Tablet, 10 MG PO DAILY, (Reported) Ramelteon (Rozerem) 8 Mg Tablet, 8 MG PO QHS, (Reported) Tamsulosin HCl (Flomax) 0.4 Mg Capsule, 0.4 MG PO DAILY, (Reported) TAKES AROUND LUNCHTIME Thiamine Hcl (Vitamin B-1) 100 Mg Tablet, 100 MG PO DAILY Allergies Coded Allergies: No Known Allergies (Verified , 08/01/18) A-FIB/CHADSVASC A-FIB History Current/History of A-Fib/PAF?: Yes Current PO Anticoag Therapy: Yes JAYDE BAEZ MD Jun 04, 2021 11:14
--- NOTE | 2021-06-04 13:43 | IPNPDOC ---
Subjective Date Seen The patient was seen on 06/04/21. Subjective Chief Complaint/HPI Patient denies any complaints this morning. Feels that his legs are little stronger. He is eager to work with physical therapy. No fever or chills. Good appetite, no bleeding from anywhere. Objective Physical Examination General Exam: Positive: Alert, Cooperative, No Acute Distress Eye Exam: Positive: PERRLA, Conjunctiva & lids normal, EOMI; Negative: Sclera icteric ENT Exam: Positive: Atraumatic, Mucous membr. moist/pink, Pharynx Normal Chest Exam: Positive: Clear to auscultation, Normal air movement Heart Exam: Positive: Rate Normal, Regular Rhythm, Normal S1, Normal S2, Murmurs (Systolic murmur present best heard at the base of the heart); Negative: Rubs Abdomen Exam: Positive: Normal bowel sounds, Soft, Other (Abdomen obese); Negative: Tenderness Extremity Exam: Positive: Other (Wasting of muscles); Negative: Clubbing, Cyanosis, Edema Skin Exam: Negative: Rash, Breakdown Assessment /Plan Assessment 75-year-old man with past medical history of IgA nephropathy, acute kidney injury requiring hemodialysis for the past 1 month with no return of renal function yet, recent C. difficile, atrial fibrillation chronic, hypertension, CAD , peripheral arterial disease , cirrhosis of liver, thrombocytopenia who was admitted at [facility] on 05/22/2021 due to difficulty of getting out of a chair. He also had several falls at home in spite of faithfully using his walker. He reports that his legs have been really weak since about March of this year. He has had 2 long hospitalizations 1 from April 27, 2021 to May 06, 2021 when he was admitted after a fall at home when he was down on the floor for more than 6 hours. He was found to have had C. difficile diarrhea and was treated with Dificid, had developed CHARANJIT on CKD and was started on hemodialysis. The second admission was from 05/07/2021 to 05/18/2021 which was for weakness and inability to ambulate. He then came back again on 05/22/2021 with same complaints weakness, inability to stand, inability to ambulate along with 2 falls at home and one at dialysis center. 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 He received 3 days of IVIG, vitamin supplementations. He was evaluated by PT and OT and felt that he needed continued rehabilitation before being safe to go home. For this patient was transferred to ARU for continued rehabilitation. 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 Mild multilevel cervical and lumbosacral degenerative disc disease. Vitamin B12, folic acid and vitamin D [id number] def, Possible GB syndrome MR Lumbar spine without spinal stenosis, no acute spinal pathology As per Dr. De Souza. Replacing B12, Folate deficiencies. 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 Given trial IVIG 50 g daily x 3 days Atrial fibrillation with slow ventricular rate EKG showing afib, bifascular block, previously seen on EKG in 04/2021 need outpatient ischemic workup overnight on 05/26/21, had several pauses on telemetry, longest lasting 2.08 seconds, with bradycardia to 45. As per Dr. Olivares. Given that the patient is asymptomatic, and is not having significant pauses during the day, there is not indication for pacemaker. He will see patient in the clinic. Stool occult blood is negative for blood. Nephrology believes that his anemia is related to CKD as well B12 def. This can be compounded by his B12 and folate deficiencies. In this light, Dr. Olivares recommended resuming eliquis 2.5 mg BID. Neuropathy Continue gabapentin. replace B12, folate PAD Bilateral arterial dopplers show chronic plaquing, anterior tibial arteries o ccluded. Limbs are warm, non dusky. D/w Dr. Brito. Appropriate for outpatient workup. Will be happy to see in clinic. CHARANJIT on CKD,stage 3 currently requiring HD. still no renal recovery so remains dependent on dialysis. Biopsy showed mesangial proliferative IgA nephropathy with acute interstitial nephritis on April 06, 2021 wit creatinine of 3.7. Steroids started with improvement to 2.3 on 04/22/21. After this he had diarrhea, hypotension with c diff infection, fall at home when he was down on the floor for 7 hours, afib with rvr and creatinine went up to 6.3 on 04/30/2021 with no improvement with hydration. HD was initiated on 05/01/2021 continue steroid therapy avoid nephrotoxins Anemia on kidney disease and iron def. receiving iron supplementations negative fecal occult blood on aranesp Cirrhosis with thrombocytopenia, etiology unclear Continue supportive care fu with GI outpatient Thrombocytopenia 2/2 liver cirrhosis monitor platelets Hx of C diff completed course of dificid on 05/10/21 no longer having diarrhea CAD hx CABG Continue statin, beta constantin BPH flomax, finasteride Hypothyroidism Continue levothyroxine. Essential Hypertension BP well controlled. c/w metoprolol History of mitral valve annuloplasty and aortic stenosis Chronic gout Allopurinol Plan/VTE VTE Prophylaxis Ordered?: Yes VS, I&O, 24H, Fishbone Vital Signs/I&O Vital Signs Date Time Temp Pulse Resp B/P (MAP) Pulse Ox O2 Delivery O2 Flow Rate FiO2 06/04/21 06:00 97.6 65 18 160/70 (100) 97 Room Air I&O- Last 24 Hours up to 6 AM 06/04/21 06:00 Intake Total 240 ml Balance 240 ml Laboratory Data 24H LABS Laboratory Tests 2 06/04/21 07:16: Immature Granulocyte % (Auto) , Neutrophils (%) (Auto) , Nucleated Red Blood Cells % (auto) 2.5H, Neutrophils 64, Band Neutrophils 2, Lymphocytes (Manual) 24, Monocytes (Manual) 6H, Basophils (Manual) 1, Metamyelocytes 1H, Myelocytes 1H, Atypical Lymphocytes 1, Polychromasia 1+, Macrocytosis 2+, Platelet Estimate DECREASED, Immature Platelet Fraction 4.6, Anion Gap 4L, Glomerular Filtration Rate 24.7L, Calcium Level 8.4L, Total Bilirubin 0.4, Aspartate Amino Transf (AST/SGOT) 34, Alanine Aminotransferase (ALT/SGPT) 47, Alkaline Phosphatase 78, Total Protein 7.4, Albumin 2.2L, Albumin/Globulin Ratio 0.4 CBC/BMP Laboratory Tests 06/04/21 07:16 TADEO LUI MD Jun 04, 2021 13:43
[2021-06-04 14:19] VITALS: BP 131/59
--- NOTE | 2021-06-04 18:53 | CR ---
NEPHROLOGY CONSULTATION DATE: 06/04/2021 CONSULTATION REQUESTED BY: Tamika Freeman M.D. REASON FOR CONSULTATION: To assist in the management of end-stage renal disease. HISTORY OF PRESENT ILLNESS: Mr. Gomez is well known to nephrology service. He is being followed since last admission. He was admitted with acute and chronic renal failure and generalized weakness. He is dialysis dependent without any recovery of kidney function so far. He is now admitted to acute rehab floor. PAST MEDICAL HISTORY: Significant for: 1. History of coronary artery disease. 2. Aortic stenosis. 3. Pulmonary hypertension. 4. Hypothyroidism. 5. Chronic essential hypertension. 6. History of IGA nephropathy with acute renal failure superimposed on chronic kidney disease, now dialysis dependent. 7. Secondary hyperparathyroidism. 8. Anemia. 9. History of polyneuropathy, currently on I.V. IG therapy. 10.History of BPH. 11.History of cirrhosis. 12.History of thrombocytopenia. 13.History of recent C. diff colitis. PAST SURGICAL HISTORY: Significant for: 1. CABG. 2. Mitral valve repair. 3. Permacath placement for dialysis. FAMILY HISTORY: Noncontributory. PERSONAL AND SOCIAL HISTORY: Patient is very weak. He does not smoke or drink. He denies any drug use. ALLERGIES: Patient has no known drug allergies. CURRENT MEDICATIONS: Include: 1. Eliquis 2.5 mg b.i.d. 2. Atorvastatin 20 mg daily. 3. Finasteride 5 mg daily. 4. Folic acid 1 mg daily. 5. Gabapentin 100 mg two tablets at bedtime. 6. Levothyroxine 88 mcg daily. 7. Metoprolol 12.5 mg b.i.d. 8. Prednisone 10 mg daily. 9. Flomax 0.4 mg daily. 10.Thiamine 100 mg daily. REVIEW OF SYSTEMS: No fevers or chills reported. He has been dialysis dependent for the last few weeks. Ears, nose, and throat are unremarkable. Heart exam is negative for leg edema, dyspnea or chest pain. Respiratory system is negative for hemoptysis or pleuritic type of chest pain. GI system is negative for vomiting or diarrhea. system is negative for dysuria or hematuria. Musculoskeletal system is significant for generalized weakness. No leg edema. Neurological system is significant for polyneuropathy. Hematological system is significant for anemia. Skin is negative for rash or ulcers. PHYSICAL EXAMINATION: VITALS: Temperature 97.6 degrees Fahrenheit, heart rate 70 per minute, respiratory rate 18 per minute, blood pressure 130/60 mmHg, oxygen saturation 95%. HEENT: Head is atraumatic. Neck supple and JVD not abnormally elevated. Permacath is present in right internal jugular vein. LUNGS: Clear to auscultation. HEART: Sounds are regular. ABDOMEN: Soft and nontender. Bowel sounds are normal. EXTREMITIES: Without any cyanosis or clubbing. NEUROLOGIC: He is awake, alert and at his baseline mentation. LABORATORY DATA: WBC 6.8, hemoglobin 10.3, hematocrit 33.3. Sodium 137, potassium 4.8, BUN 30, creatinine 2.68. Calcium 8.4 and albumin 2.2. PROBLEMS: 1. End-stage renal disease: Patient has been on dialysis for the last few weeks without any significant recovery of kidney function. He has been dialyzed three times a week and I plan to switch his dialysis to Tuesday, and Tuesday schedule. We will hold off dialysis on Tuesday and switch him to Tuesday in order to make it convenient for acute rehab service. 2. Anemia: His anemia is stable and he continues with Aranesp once a week in dialysis, which will be continued. 3. Congestive heart failure: Volume status has been very well compensated and we will continue to manage it with dialysis. He is currently not on any diuretic. 4. Hypertension: Blood pressure has been very well controlled and will continue with current medications. Thank you for involving me in the care of Mr. Gomez. Our nephrology service will continue to follow him.
[2021-06-04 20:00] VITALS: BP 150/70
[2021-06-04] MEDS: GABAPENTIN 100 MG CAP PO SCH (20:21)
[2021-06-04] MEDS: SENNA 8.6 MG TAB (SENOKOT) PO SCH (20:25)
[2021-06-04] MEDS: RAMELTEON 8 MG TAB (ROZEREM) PO SCH (20:25)
[2021-06-04] MEDS: ATORVASTATIN 20 MG TAB PO SCH (20:26)
[2021-06-05] MEDS: LEVOTHYROXINE 88MCG TABLET (0.088 MG) PO SCH (05:28)
[2021-06-05 06:00] VITALS: BP 139/67
[2021-06-05 07:16] LABS: BASO # 0.1 10^3/uL (0.0-0.2); BASO % 0.9 % (0.0-1.0); EOS % 0.1 % (0.0-3.0); HEMATOCRIT 33.4 % (42.0-52.0); HEMOGLOBIN 10.2 g/dl (13.5-17.5); LYMPH # 1.1 10^3/uL (1.5-5.0); LYMPH % 15.7 % (24.0-44.0); MEAN CORPUSCULAR HEMOGLOBIN 31.6 pg (27.0-33.0); MEAN CORPUSCULAR HGB CONC 30.5 g/dl (32.0-36.5); MEAN CORPUSCULAR VOLUME 103.4 fl (80.0-96.0); MONO # 0.7 10^3/uL (0.0-0.8); MONO % 10.5 % (2.0-8.0); NEUTROPHILS # 4.5 10^3/uL (1.5-8.5); NEUTROPHILS % 67.3 % (36.0-66.0); RED BLOOD COUNT 3.23 10^6/uL (4.30-6.10); WHITE BLOOD COUNT 6.7 10^3/uL (4.0-10.0)
[2021-06-05 07:18] LABS: PLATELET COUNT, AUTOMATED 86 10^3/uL (150-450)
[2021-06-05 07:35] LABS: CALCIUM LEVEL 8.5 MG/DL (8.8-10.2); CREATININE FOR GFR 3.14 MG/DL (0.70-1.30); GLOMERULAR FILTRATION RATE 20.5 (>42); POTASSIUM SERUM 5.3 MEQ/L (3.5-5.1)
[2021-06-05] MEDS: REMEDY PHYTOPLEX Z-GUARD PASTE 113GM TUBE (FROM STOREROOM PRODUCT) TOP SCH ×3 (09:00→21:12)
[2021-06-05] MEDS: TAMSULOSIN 0.4 MG CAP PO SCH (09:51)
[2021-06-05] MEDS: THIAMINE 100 MG TAB PO SCH (09:52)
[2021-06-05] MEDS: FOLIC ACID 1 MG TAB PO SCH (09:52)
[2021-06-05] MEDS: FINASTERIDE 5 MG TAB PO SCH (09:52)
[2021-06-05] MEDS: CYANOCOBALAMIN 500 MCG TAB PO SCH (09:52)
[2021-06-05] MEDS: predniSONE 10 MG TAB PO SCH (09:52)
[2021-06-05] MEDS: PANTOPRAZOLE 40MG TAB (PROTONIX) PO SCH (09:52)
[2021-06-05] MEDS: DOCUSATE SODIUM 100MG CAPSULE PO SCH ×2 (09:52→21:11)
[2021-06-05] MEDS: APIXABAN 2.5 MG TAB (ELIQUIS) PO SCH ×2 (09:52→21:11)
[2021-06-05] MEDS: METOPROLOL TART 12.5 MG PER 1/2 TAB PO SCH ×2 (09:56→21:11)
[2021-06-05] MEDS ORDERED: PATIROMER SORBITEX CALCIUM 8.4 GM POWDER PACKET (VELTASSA) PO ONE (10:00)
--- NOTE | 2021-06-05 11:43 | IPNPDOC ---
PM&R Progress Note DATE OF SERVICE: Jun 05, 2021 Factory Worker Progress Note Subjective: Patient reporting he is walking in therapy and that his legs feel stronger. He denies worsening abdominal distension or pain. REVIEW OF SYSTEMS: The following is a completed review of systems and has been reviewed. Review of systems otherwise unremarkable. PAIN: Patient self reports no pain EYES: No recent vision changes EARS, NOSE, & THROAT: No throat pain, or dysphagia, or rhinorrhea CARDIOVASCULAR: Denies chest pain or palpitations PULMONARY: Denies shortness of breath GASTROINTESTINAL: Denies constipation/diarrhea GENITOURINARY: denies dysuria MUSCULOSKELETAL: generalized weakness NEUROLOGICAL: +peripheral polyneuropathy HEMATOLOGICAL: +anemia SKIN:denies rash PSYCHIATRIC: Unremarkable All other review of systems found to be negative. PHYSICAL EXAMINATION: VITAL SIGNS: Please see below. GENERAL: Pleasant and cooperative. No acute distress. HEENT: PERRL. Extraocular movements intact. Clear conjunctiva, +dentures CARDIOVASCULAR: [Regular rate and rhythm. No murmurs, rubs, or gallops]. LUNGS: Clear to auscultation bilaterally. No wheezes. No rhonchi ABDOMEN: distended, no guarding, non TTP, +bowel sounds NEUROLOGICAL: Alert and oriented times three. Cranial nerves II through XII grossly intact. Sensation diminished to light touch bilat EL in stocking pattern EXTREMITIES: 5\5 strength bilateral upper extremities. 4+\5 strength right lower extremity. 4+/5 strength in left lower extremity. 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 Rehab- PT/OT advance mobility and ADls, strengthen/stretch/maintain ROM all 4 limbs 2. 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 Cardiac- hx of Afib with episodes of asymptomatic and occasional bradycardia- c/u Eliquis and low dose metoprolol with holding parameters -f/u cardiology for possible PM in future -HLD c/u statin -medicine consulted to assist in overall management 4. Resp- monitor for infection -severe pulmonary HTN monitor for need for supplemental 02 5. Vasc-hx of PAD with Bilateral arterial dopplers show chronic plaquing, anterior tibial arteries occluded, f/u D/w Dr. Brito for outpatient w/u 6. GI- cirrhosis etiology unknown f/u GI outpatient -C diff, completed Dificid dosing 05-10-21, clarifying with infection control duration of contact precautions -GI ppx- protonix 7. Heme- thrombocytopenia from cirrhosis, monitor platelets -anemia of chronic disease, aranesp and prbcs per renal 8. 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 Pain- tylnenol prn, gabapentin for neuropathy 10. Endo- hx of hypothyroidism c/u synthroid 11. - BPH c/u proscar and flomax 12. psych- rozerem for insomnia 13. Dispo- tbd Allergies Coded Allergies: No Known Allergies (Verified , 08/01/18) Vital Signs Vital Signs Date Time Temp Pulse Resp B/P (MAP) Pulse Ox O2 Delivery O2 Flow Rate FiO2 06/05/21 09:56 65 144/68 06/05/21 06:00 97.1 20 97 Room Air Laboratory Data CBC/BMP Laboratory Tests 06/05/21 06:55 Labs 24H Laboratory Tests 2 06/05/21 06:55: Immature Granulocyte % (Auto) 5.5H, Neutrophils (%) (Auto) 67.3H, Lymphocytes (%) (Auto) 15.7L, Monocytes (%) (Auto) 10.5H, Eosinophils (%) (Auto) 0.1, Basophils (%) (Auto) 0.9, Neutrophils # (Auto) 4.5, Lymphocytes # (Auto) 1.1L, Monocytes # (Auto) 0.7, Eosinophils # (Auto) 0.0, Basophils # (Auto) 0.1, Nucleated Red Blood Cells % (auto) 1.3H, Anion Gap 7L, Glomerular Filtration Rate 20.5L, Calcium Level 8.5L Current Medications Current Medications Current Medications Medications (Trade) Dose Ordered Sig/Dorothy Route PRN Reason Start Time Stop Time Status Last Admin Dose Admin Acetaminophen (Tylenol Tab) 650 mg Q4HP PRN PO fever/MILD PAIN (PS 1-4) 06/03/21 15:45 Apixaban (Eliquis) 2.5 mg BID PO 06/03/21 21:00 06/05/21 09:52 Atorvastatin Calcium (Lipitor) 20 mg QHS PO 06/03/21 21:00 06/04/21 20:26 Bisacodyl (Dulcolax Suppository) 10 mg DAILYPRN PRN MS CONSTIPATION 06/03/21 15:45 Cyanocobalamin (Vitamin B12) 1,000 mcg DAILY PO 06/04/21 09:00 06/05/21 09:52 Darbepoetin Gerald (Aranesp (Dialysis Use)) 100 mcg HD IV 06/04/21 18:10 Docusate Sodium (Colace) 100 mg BID PO 06/03/21 21:00 06/05/21 09:52 Finasteride (Proscar) 5 mg DAILY PO 06/04/21 09:00 06/05/21 09:52 Folic Acid (Folic Acid) 1 mg DAILY PO 06/04/21 09:00 06/05/21 09:52 Gabapentin (Neurontin) 200 mg QHS PO 06/03/21 21:00 06/04/21 20:21 Levothyroxine Sodium (Synthroid) 88 mcg DAILY@06 PO 06/04/21 06:00 06/05/21 05:28 Metoprolol Tartrate (Lopressor) 12.5 mg BID PO 06/03/21 21:00 06/05/21 09:56 Pantoprazole Sodium (Protonix) 40 mg DAILY PO 06/04/21 09:00 06/05/21 09:52 Prednisone (Deltasone) 10 mg DAILY PO 06/04/21 09:00 06/05/21 09:52 Ramelteon (Rozerem) 8 mg QHS PO 06/03/21 21:00 06/04/21 20:25 Senna (Senokot) 1 tab QHS PO 06/03/21 21:00 06/04/21 20:25 Tamsulosin HCl (Flomax) 0.4 mg DAILY PO 06/04/21 09:00 06/05/21 09:51 Thiamine HCl (Thiamine HCl) 100 mg DAILY PO 06/04/21 09:00 06/05/21 09:52 JAYDE BAEZ MD Jun 05, 2021 11:43
--- NOTE | 2021-06-05 11:48 | IPN ---
PROGRESS NOTE DATE: 06/05/2021 SUBJECTIVE: Mr. Gomez is seen this morning on his bedside. He is in good spirits today. He is currently sitting in the chair. He reports that he walked all the way to the gym and then back. He is now waiting for his next session for physical therapy. He denies any dyspnea, chest pain, leg edema, nausea or vomiting. OBJECTIVE: VITAL SIGNS: Temperature is 97.1 degrees Fahrenheit, heart rate is 65 per minute and respiratory rate 20 per minute. Blood pressure 144/68 mmHg and oxygen saturation 97% on room air. HEENT: His head was atraumatic. NECK: Supple and without JVD or thyroid enlargement. Dialysis catheter is present on right upper chest without any signs of infection. HEART: His heart sounds are regular. LUNGS: Clear to auscultation. ABDOMEN: Soft and nontender. Bowel sounds are normal. EXTREMITIES: Without any cyanosis or clubbing. He has trace ankle edema. NEUROLOGIC: He is awake, alert and at his baseline mentation. LABORATORY DATA: Today's labs showed a WBC count of 6.7, hemoglobin 10.2 and hematocrit 33.4, sodium of 139, potassium 5.3, BUN 41 and creatinine 3.14. Glucose 79 and calcium 8.5. PROBLEMS: 1. Endstage renal disease. Patient has been dialysis dependent for at least six weeks now. He does not have any meaningful recovery of his kidney function although he does have adequate urine output. At present, we have a plan for dialysis tomorrow. We are switching his dialysis to Tuesday, and Tuesday schedule in order to get maximum benefit from acute rehab. 2. Hyperkalemia, patient has mild hyperkalemia and we will treat him with one dose of Veltassa 8.4 grams today. Dialysis will be scheduled for tomorrow. 3. Anemia, his anemia has improved and will continue with Aranesp 100 mcg once a week with dialysis. 4. Hypertension. At present seems well-controlled with current antihypertensive medications. 5. Weakness, patient is now getting acute rehab. He had received IV Ig which has now been stopped. He is making progress with rehab.
[2021-06-05 14:00] VITALS: BP 162/74
[2021-06-05] MEDS: MAGNESIUM SULFATE GRANULES(EPSOM SALT) 1LB TOP SCH (18:34)
[2021-06-05 20:00] VITALS: BP 121/68
[2021-06-05] MEDS: SENNA 8.6 MG TAB (SENOKOT) PO SCH (21:11)
[2021-06-05] MEDS: GABAPENTIN 100 MG CAP PO SCH (21:11)
[2021-06-05] MEDS: RAMELTEON 8 MG TAB (ROZEREM) PO SCH (21:11)
[2021-06-05] MEDS: ATORVASTATIN 20 MG TAB PO SCH (21:11)
[2021-06-06 04:00] VITALS: BP 135/74
[2021-06-06] MEDS: LEVOTHYROXINE 88MCG TABLET (0.088 MG) PO SCH (05:05)
[2021-06-06 07:18] LABS: CALCIUM LEVEL 8.3 MG/DL (8.8-10.2); CREATININE FOR GFR 3.33 MG/DL (0.70-1.30); GLOMERULAR FILTRATION RATE 19.2 (>42); POTASSIUM SERUM 5.4 MEQ/L (3.5-5.1)
[2021-06-06] MEDS: predniSONE 10 MG TAB PO SCH (08:09)
[2021-06-06] MEDS: PANTOPRAZOLE 40MG TAB (PROTONIX) PO SCH (08:09)
[2021-06-06] MEDS: APIXABAN 2.5 MG TAB (ELIQUIS) PO SCH ×2 (08:09→20:29)
[2021-06-06] MEDS: DOCUSATE SODIUM 100MG CAPSULE PO SCH ×2 (08:09→20:28)
[2021-06-06] MEDS: CYANOCOBALAMIN 500 MCG TAB PO SCH (08:09)
[2021-06-06] MEDS: FINASTERIDE 5 MG TAB PO SCH (08:09)
[2021-06-06] MEDS: THIAMINE 100 MG TAB PO SCH (08:09)
[2021-06-06] MEDS: METOPROLOL TART 12.5 MG PER 1/2 TAB PO SCH ×2 (08:09→20:29)
[2021-06-06] MEDS: TAMSULOSIN 0.4 MG CAP PO SCH (08:09)
[2021-06-06] MEDS: FOLIC ACID 1 MG TAB PO SCH (08:09)
[2021-06-06] MEDS: REMEDY PHYTOPLEX Z-GUARD PASTE 113GM TUBE (FROM STOREROOM PRODUCT) TOP SCH ×3 (08:10→20:30)
[2021-06-06] MEDS: DARBEPOETIN 100 MCG/0.5 ML *DIALYSIS* SYRINGE (J0882) IV SCH (12:11)
[2021-06-06 13:26] VITALS: BP 126/61
--- NOTE | 2021-06-06 14:52 | IPN ---
NEPHROLOGY PROGRESS NOTE DATE: 06/06/2021 SUBJECTIVE: Patient was seen and examined at the bedside today morning during hemodialysis procedure. He was tolerating the hemodialysis procedure well. He denies any active complaints. He reports his weakness is getting better. He was able to walk from the rehabilitation unit to dialysis center today. OBJECTIVE: VITAL SIGNS: Temperature 96.8 degrees Fahrenheit, blood pressure 126.61, pulse 61, respiratory rate 16, saturating 98% on room air. INTAKE AND OUTPUT: Urine output is not recorded. He has had about five voids since overnight. Weight in the bed scale is 72.4 kg. PHYSICAL EXAMINATION: GENERAL: Patient is awake, alert, oriented times three, laying in bed, no apparent distress. HEAD AND NECK EXAM: Extraocular muscles intact. Pupils equally round and reactive to light. Mucous membranes are moist. Neck is supple. He has a tunneled hemodialysis catheter. CARDIOVASCULAR: S1, S2. Regular rate. 2+ edema of the bilateral lower extremities. RESPIRATORY: Chest is clear to auscultation bilaterally. Bilateral equal air entry. No rales or rhonchi. ABDOMEN: Soft. Obese. Positive bowel sounds. Nontender. No organomegaly MUSCULOSKELETAL: Edema of the bilateral lower extremities, as mentioned above. Otherwise, no clubbing or cyanosis. CENTRAL NERVOUS SYSTEM (TEACHER SPECIALIST): No focal deficit. Power is 5/5 in all extremities. LABORATORY STUDIES: CBC from yesterday showed WBC 6.7, hemoglobin 10.2. BMP done today morning showed sodium 137, potassium 5.4, chloride 108, bicarbonate 20, BUN 47, creatinine 3.3. CURRENT INPATIENT MEDICATIONS: Patient's medications were all reviewed by myself. There is no significant change in the medications today as compared with yesterday. ASSESSMENT AND PLAN: 1. Acute renal failure superimposed on chronic kidney disease. It was secondary to IgA nephropathy initially and later on he had acute kidney injury because of Clostridium (C) difficile colitis and hypotension. There is no significant improvement in the renal function. His creatinine is still rising between dialysis and he still gets acidotic and hyperkalemic. I will continue him on hemodialysis at this time. 2. Hyperkalemia. It is secondary to renal failure. Patient is being dialyzed with 2K bath. Potassium level should improve. 3. Anemia in renal failure. Hemoglobin is 10.2, which is optimal. Patient continues to be on Aranesp. 4. group home use of steroid. Patient is on prednisone, tapering dose, for IgA nephropathy. Continue the 10 mg dose for now. 5. Weakness and polyneuropathy. Patient is status post IVIG. He is in rehabilitation. Clinically, he is getting better.
[2021-06-06] MEDS: MAGNESIUM SULFATE GRANULES(EPSOM SALT) 1LB TOP SCH (16:05)
[2021-06-06 20:00] VITALS: BP 116/55
[2021-06-06] MEDS: SENNA 8.6 MG TAB (SENOKOT) PO SCH (20:29)
[2021-06-06] MEDS: RAMELTEON 8 MG TAB (ROZEREM) PO SCH (20:29)
[2021-06-06] MEDS: GABAPENTIN 100 MG CAP PO SCH (20:30)
[2021-06-06] MEDS: ATORVASTATIN 20 MG TAB PO SCH (20:30)
[2021-06-07] MEDS: LEVOTHYROXINE 88MCG TABLET (0.088 MG) PO SCH (04:56)
[2021-06-07 06:00] VITALS: BP 147/64
[2021-06-07] MEDS: TAMSULOSIN 0.4 MG CAP PO SCH (08:18)
[2021-06-07] MEDS: PANTOPRAZOLE 40MG TAB (PROTONIX) PO SCH (08:18)
[2021-06-07] MEDS: FOLIC ACID 1 MG TAB PO SCH (08:18)
[2021-06-07] MEDS: CYANOCOBALAMIN 500 MCG TAB PO SCH (08:18)
[2021-06-07] MEDS: THIAMINE 100 MG TAB PO SCH (08:18)
[2021-06-07] MEDS: predniSONE 10 MG TAB PO SCH (08:18)
[2021-06-07] MEDS: DOCUSATE SODIUM 100MG CAPSULE PO SCH ×2 (08:18→20:19)
[2021-06-07] MEDS: FINASTERIDE 5 MG TAB PO SCH (08:18)
[2021-06-07] MEDS: METOPROLOL TART 12.5 MG PER 1/2 TAB PO SCH ×2 (08:19→20:22)
[2021-06-07] MEDS: APIXABAN 2.5 MG TAB (ELIQUIS) PO SCH ×2 (08:19→20:19)
[2021-06-07] MEDS: REMEDY PHYTOPLEX Z-GUARD PASTE 113GM TUBE (FROM STOREROOM PRODUCT) TOP SCH ×3 (08:20→20:22)
[2021-06-07 14:00] VITALS: BP 129/61
[2021-06-07] MEDS: MAGNESIUM SULFATE GRANULES(EPSOM SALT) 1LB TOP SCH (16:15)
[2021-06-07 20:00] VITALS: BP 138/63
[2021-06-07] MEDS: ATORVASTATIN 20 MG TAB PO SCH (20:19)
[2021-06-07] MEDS: RAMELTEON 8 MG TAB (ROZEREM) PO SCH (20:19)
[2021-06-07] MEDS: SENNA 8.6 MG TAB (SENOKOT) PO SCH (20:19)
[2021-06-07] MEDS: GABAPENTIN 100 MG CAP PO SCH (20:19)
--- NOTE | 2021-06-07 20:41 | IPN ---
NEPHROLOGY PROGRESS NOTE DATE: 06/07/2021 SUBJECTIVE: Patient was seen and examined at the bedside today morning. He is afebrile and hemodynamically stable. He was dialyzed yesterday. He tolerated the hemodialysis procedure well. He was getting ready to get his physical therapy when I saw him. He reports that he is gaining strength in his lower extremities now. OBJECTIVE: VITAL SIGNS: Temperature 97.3 degrees Fahrenheit, blood pressure 129/61, pulse 66, respiratory rate 18, saturating 98% on room air. INTAKE/OUTPUT: Urine output is not available at this time. Ultrafiltration with hemodialysis was 1.5 liters yesterday. Weight in the bed scale was 72.4 kg yesterday. PHYSICAL EXAMINATION: GENERAL: Patient is awake, alert, oriented x3, sitting up in the sofa, in no apparent distress. HEAD/NECK: Extraocular muscles intact. Pupils equally round and reactive to light. Mucous membranes are moist. Neck is supple. He has a tunneled hemodialysis catheter. CVS: S1, S2, regular rate. Trace edema of the bilateral lower extremities. RESPIRATORY: Chest is clear to auscultation bilaterally. Bilateral equal air entry. No rales or rhonchi. ABDOMEN: Soft, positive bowel sounds, nontender. No organomegaly. MUSCULOSKELETAL: No clubbing or cyanosis. Pulses are 2+. MACHINE IRONER: No focal deficit. Power is 5/5 in all extremities. LABORATORY REVIEW: CBC from June 05 and BMP is from yesterday with potassium 5.4. Patient was already dialyzed yesterday. No new labs available at this time. CURRENT INPATIENT MEDICATIONS: Patient's medications were all reviewed by myself. There is no significant change in the medications today as compared to yesterday. ASSESSMENT AND PLAN: 1. Acute renal failure superimposed on chronic kidney disease: Patient continues to be dialysis dependent. He has a biopsy proven IGA nephropathy. Management is as mentioned below. 2. IGA nephropathy: Patient is getting tapering dose of steroids. Currently he is on prednisone 10 mg p.o. daily. 3. Anemia and renal failure: Continue current dose of Aranesp. 4. Weakness and polyneuropathy: Patient is getting physical therapy. He is status post I.V. IG.
[2021-06-08 06:00] VITALS: BP 146/67
[2021-06-08] MEDS: LEVOTHYROXINE 88MCG TABLET (0.088 MG) PO SCH (06:15)
[2021-06-08 07:24] LABS: CALCIUM LEVEL 8.1 MG/DL (8.8-10.2); CREATININE FOR GFR 3.23 MG/DL (0.70-1.30); GLOMERULAR FILTRATION RATE 19.9 (>42); POTASSIUM SERUM 4.8 MEQ/L (3.5-5.1)
[2021-06-08 07:26] LABS: BASO # 0.1 10^3/uL (0.0-0.2); BASO % 0.9 % (0.0-1.0); EOS # 0.1 10^3/uL (0.0-0.5); EOS % 0.9 % (0.0-3.0); HEMATOCRIT 33.7 % (42.0-52.0); HEMOGLOBIN 10.4 g/dl (13.5-17.5); LYMPH # 1.1 10^3/uL (1.5-5.0); LYMPH % 17.2 % (24.0-44.0); MEAN CORPUSCULAR HEMOGLOBIN 31.2 pg (27.0-33.0); MEAN CORPUSCULAR HGB CONC 30.9 g/dl (32.0-36.5); MEAN CORPUSCULAR VOLUME 101.2 fl (80.0-96.0); MONO # 0.9 10^3/uL (0.0-0.8); MONO % 13.8 % (2.0-8.0); NEUTROPHILS # 4.1 10^3/uL (1.5-8.5); NEUTROPHILS % 63.2 % (36.0-66.0); RED BLOOD COUNT 3.33 10^6/uL (4.30-6.10); WHITE BLOOD COUNT 6.4 10^3/uL (4.0-10.0)
[2021-06-08 07:28] LABS: PLATELET COUNT, AUTOMATED 81 10^3/uL (150-450)
[2021-06-08] MEDS: THIAMINE 100 MG TAB PO SCH (07:45)
[2021-06-08] MEDS: CYANOCOBALAMIN 500 MCG TAB PO SCH (07:45)
[2021-06-08] MEDS: predniSONE 10 MG TAB PO SCH (07:46)
[2021-06-08] MEDS: TAMSULOSIN 0.4 MG CAP PO SCH (07:46)
[2021-06-08] MEDS: FOLIC ACID 1 MG TAB PO SCH (07:46)
[2021-06-08] MEDS: DOCUSATE SODIUM 100MG CAPSULE PO SCH ×2 (07:46→21:36)
[2021-06-08] MEDS: APIXABAN 2.5 MG TAB (ELIQUIS) PO SCH ×2 (07:46→21:36)
[2021-06-08] MEDS: PANTOPRAZOLE 40MG TAB (PROTONIX) PO SCH (07:46)
[2021-06-08] MEDS: REMEDY PHYTOPLEX Z-GUARD PASTE 113GM TUBE (FROM STOREROOM PRODUCT) TOP SCH ×3 (07:47→21:36)
[2021-06-08] MEDS: METOPROLOL TART 12.5 MG PER 1/2 TAB PO SCH ×2 (07:47→21:35)
[2021-06-08] MEDS: FINASTERIDE 5 MG TAB PO SCH (07:47)
[2021-06-08 14:00] VITALS: BP 118/56
[2021-06-08] MEDS: MAGNESIUM SULFATE GRANULES(EPSOM SALT) 1LB TOP SCH (17:02)
[2021-06-08 20:00] VITALS: BP 147/68
[2021-06-08] MEDS: ATORVASTATIN 20 MG TAB PO SCH (21:35)
[2021-06-08] MEDS: SENNA 8.6 MG TAB (SENOKOT) PO SCH (21:35)
[2021-06-08] MEDS: RAMELTEON 8 MG TAB (ROZEREM) PO SCH (21:35)
[2021-06-08] MEDS: GABAPENTIN 100 MG CAP PO SCH (21:36)
[2021-06-09] MEDS: LEVOTHYROXINE 88MCG TABLET (0.088 MG) PO SCH (05:25)
[2021-06-09 06:25] VITALS: BP 135/63
--- NOTE | 2021-06-09 07:26 | IPNPDOC ---
PM&R Progress Note DATE OF SERVICE: Jun 09, 2021 Public Health Dietitian Progress Note Subjective: Patient reporting he is upset that he has to take so many pills. Otherwise he is feeling ok and repots his endurance is improving. REVIEW OF SYSTEMS: The following is a completed review of systems and has been reviewed. Review of systems otherwise unremarkable. PAIN: Patient self reports no pain EYES: No recent vision changes EARS, NOSE, & THROAT: No throat pain, or dysphagia, or rhinorrhea CARDIOVASCULAR: Denies chest pain or palpitations PULMONARY: Denies shortness of breath GASTROINTESTINAL: Denies constipation/diarrhea GENITOURINARY: denies dysuria MUSCULOSKELETAL: generalized weakness NEUROLOGICAL: +peripheral polyneuropathy HEMATOLOGICAL: +anemia SKIN:denies rash PSYCHIATRIC: Unremarkable All other review of systems found to be negative. PHYSICAL EXAMINATION: VITAL SIGNS: Please see below. GENERAL: Pleasant and cooperative. No acute distress. HEENT: PERRL. Extraocular movements intact. Clear conjunctiva, +dentures CARDIOVASCULAR: [Regular rate and rhythm. No murmurs, rubs, or gallops]. LUNGS: Clear to auscultation bilaterally. No wheezes. No rhonchi ABDOMEN: distended, no guarding, non TTP, +bowel sounds NEUROLOGICAL: Alert and oriented times three. Cranial nerves II through XII grossly intact. Sensation diminished to light touch bilat EL in stocking pattern EXTREMITIES: 5\5 strength bilateral upper extremities. 4+\5 strength right lower extremity. 4+/5 strength in left lower extremity. 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 Rehab- PT/OT advance mobility and ADls, strengthen/stretch/maintain ROM all 4 limbs 2. 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 Cardiac- hx of Afib with episodes of asymptomatic and occasional bradycardia- c/u Eliquis and low dose metoprolol with holding parameters -f/u cardiology for possible PM in future -HLD c/u statin -medicine consulted to assist in overall management 4. Resp- monitor for infection -severe pulmonary HTN monitor for need for supplemental 02 5. Vasc-hx of PAD with Bilateral arterial dopplers show chronic plaquing, anterior tibial arteries occluded, f/u D/w Dr. Brito for outpatient w/u 6. GI- cirrhosis etiology unknown f/u GI outpatient -C diff, completed Dificid dosing 05-10-21, off precautions, room terminally cleaned 06-08-21, no more diarrhea -GI ppx- protonix 7. Heme- thrombocytopenia from cirrhosis, monitor platelets -anemia of chronic disease, aranesp and prbcs per renal 8. 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 Pain- tylnenol prn, gabapentin for neuropathy 10. Endo- hx of hypothyroidism c/u synthroid 11. - BPH c/u proscar and flomax 12. psych- rozerem for insomnia 13. Dispo- 06-14-21 to home, progressing towards goals Allergies Coded Allergies: No Known Allergies (Verified , 08/01/18) Vital Signs Vital Signs Date Time Temp Pulse Resp B/P (MAP) Pulse Ox O2 Delivery O2 Flow Rate FiO2 06/09/21 06:25 97.4 60 16 135/63 (87) 94 Room Air Current Medications Current Medications Current Medications Medications (Trade) Dose Ordered Sig/Dorothy Route PRN Reason Start Time Stop Time Status Last Admin Dose Admin Acetaminophen (Tylenol Tab) 650 mg Q4HP PRN PO fever/MILD PAIN (PS 1-4) 06/03/21 15:45 06/05/21 21:11 Apixaban (Eliquis) 2.5 mg BID PO 06/03/21 21:00 06/08/21 21:36 Atorvastatin Calcium (Lipitor) 20 mg QHS PO 06/03/21 21:00 06/08/21 21:35 Bisacodyl (Dulcolax Suppository) 10 mg DAILYPRN PRN [place] CONSTIPATION 06/03/21 15:45 Cyanocobalamin (Vitamin B12) 1,000 mcg DAILY PO 06/04/21 09:00 06/08/21 07:45 Darbepoetin Gerald (Aranesp (Dialysis Use)) 100 mcg HD IV 06/04/21 18:10 06/06/21 12:11 Docusate Sodium (Colace) 100 mg BID PO 06/03/21 21:00 06/08/21 21:36 Finasteride (Proscar) 5 mg DAILY PO 06/04/21 09:00 06/08/21 07:47 Folic Acid (Folic Acid) 1 mg DAILY PO 06/04/21 09:00 06/08/21 07:46 Gabapentin (Neurontin) 200 mg QHS PO 06/03/21 21:00 06/08/21 21:36 Heparin Sodium (Heparin) Please refer to ... ASDIRECTED XX 06/09/21 06:00 06/10/21 05:59 Heparin Sodium (Heparin) dose as per volume indica... ASDIRECTED PRN IV SEE LABEL COMMENTS 06/09/21 06:00 06/09/21 08:54 Levothyroxine Sodium (Synthroid) 88 mcg DAILY@06 PO 06/04/21 06:00 06/09/21 05:25 Magnesium Sulfate (Epsom Salt) daily at 5pm soak BILATE... DAILY@1700 [facility] 06/05/21 17:00 06/08/21 17:02 Metoprolol Tartrate (Lopressor) 12.5 mg BID PO 06/03/21 21:00 06/08/21 21:35 Pantoprazole Sodium (Protonix) 40 mg DAILY PO 06/04/21 09:00 06/08/21 07:46 Prednisone (Deltasone) 10 mg DAILY PO 06/04/21 09:00 06/08/21 07:46 Ramelteon (Rozerem) 8 mg QHS PO 06/03/21 21:00 06/08/21 21:35 Senna (Senokot) 1 tab QHS PO 06/03/21 21:00 06/08/21 21:35 Tamsulosin HCl (Flomax) 0.4 mg DAILY PO 06/04/21 09:00 06/08/21 07:46 Thiamine HCl (Thiamine HCl) 100 mg DAILY PO 06/04/21 09:00 06/08/21 07:45 JAYDE BAEZ MD Jun 09, 2021 07:26
[2021-06-09] MEDS: REMEDY PHYTOPLEX Z-GUARD PASTE 113GM TUBE (FROM STOREROOM PRODUCT) TOP SCH ×3 (09:00→21:00)
[2021-06-09] MEDS: FOLIC ACID 1 MG TAB PO SCH (09:50)
[2021-06-09] MEDS: DOCUSATE SODIUM 100MG CAPSULE PO SCH ×2 (09:50→21:00)
[2021-06-09] MEDS: PANTOPRAZOLE 40MG TAB (PROTONIX) PO SCH (09:51)
[2021-06-09] MEDS: TAMSULOSIN 0.4 MG CAP PO SCH (09:51)
[2021-06-09] MEDS: CYANOCOBALAMIN 500 MCG TAB PO SCH (09:51)
[2021-06-09] MEDS: FINASTERIDE 5 MG TAB PO SCH (09:52)
[2021-06-09] MEDS: predniSONE 10 MG TAB PO SCH (09:52)
[2021-06-09] MEDS: APIXABAN 2.5 MG TAB (ELIQUIS) PO SCH ×2 (09:52→20:59)
[2021-06-09] MEDS: METOPROLOL TART 12.5 MG PER 1/2 TAB PO SCH ×2 (09:52→20:59)
[2021-06-09] MEDS: THIAMINE 100 MG TAB PO SCH (09:52)
--- NOTE | 2021-06-09 10:06 | IPN ---
NEPHROLOGY PROGRESS NOTE DATE: 06/09/2021 SUBJECTIVE: Patient was seen and examined at the bedside today morning in the rehab unit. He denies any active complaints at this time. Today is patient's regular day of dialysis. OBJECTIVE: VITAL SIGNS: Temperature 97.4 degrees Fahrenheit, blood pressure 135/63, pulse 60, respiratory rate 16, saturating 94% on room air. INTAKE/OUTPUT: There is no urine output recorded. He has had four voids since overnight. Weight in the bed scale is not available. PHYSICAL EXAMINATION: GENERAL: Patient is awake, alert, oriented x3, sitting up in the sofa, in no apparent distress. HEAD/NECK: Extraocular muscles intact. Pupils equally round and reactive to light. Mucous membranes are moist. Neck is supple. He has a tunneled hemodialysis catheter. CVS: S1, S2, regular rate. Trace edema of the bilateral lower extremities. RESPIRATORY: Chest is clear to auscultation bilaterally. Bilateral equal air entry. No rales or rhonchi. ABDOMEN: Soft, obese, positive bowel sounds, nontender. No organomegaly. MUSCULOSKELETAL: No clubbing or cyanosis. Pulses are 2+. 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 Power is 5/5 in all extremities. LABORATORY REVIEW: CBC is from yesterday with a hemoglobin of 10.4 and BMP is also from yesterday with a potassium of 4.8 and creatinine of 3.2. CURRENT INPATIENT MEDICATIONS: Patient's medications were all reviewed by myself. There is no significant change in the medications today. ASSESSMENT AND PLAN: 1. Acute renal failure superimposed on chronic kidney disease: Patient is still dialysis dependent. He will be dialyzed today. Ultrafiltration goal will be around 1.5 liters as tolerated by his blood pressure. 2. IGA nephropathy: Continue current dose of prednisone 10 mg p.o. daily. Continue to monitor for any signs of renal recovery. 3. Anemia and renal failure: Continue Aranesp, hemoglobin is improving. 4. Polyneuropathy and weakness: Patient is getting physical therapy. He is status post IV IG.
[2021-06-09 14:00] VITALS: BP 129/74
[2021-06-09] MEDS: MAGNESIUM SULFATE GRANULES(EPSOM SALT) 1LB TOP SCH (18:56)
[2021-06-09 19:43] VITALS: BP 118/66
[2021-06-09] MEDS: ATORVASTATIN 20 MG TAB PO SCH (20:59)
[2021-06-09] MEDS: RAMELTEON 8 MG TAB (ROZEREM) PO SCH (20:59)
[2021-06-09] MEDS: GABAPENTIN 100 MG CAP PO SCH (20:59)
[2021-06-09] MEDS: SENNA 8.6 MG TAB (SENOKOT) PO SCH (21:00)
[2021-06-10 06:00] VITALS: BP 114/56
[2021-06-10] MEDS: LEVOTHYROXINE 88MCG TABLET (0.088 MG) PO SCH (06:13)
[2021-06-10] MEDS: METOPROLOL TART 12.5 MG PER 1/2 TAB PO SCH ×2 (07:23→21:37)
[2021-06-10] MEDS: PANTOPRAZOLE 40MG TAB (PROTONIX) PO SCH (07:23)
[2021-06-10] MEDS: THIAMINE 100 MG TAB PO SCH (07:23)
[2021-06-10] MEDS: DOCUSATE SODIUM 100MG CAPSULE PO SCH ×2 (07:23→21:35)
[2021-06-10] MEDS: FOLIC ACID 1 MG TAB PO SCH (07:23)
[2021-06-10] MEDS: CYANOCOBALAMIN 500 MCG TAB PO SCH (07:23)
[2021-06-10] MEDS: APIXABAN 2.5 MG TAB (ELIQUIS) PO SCH ×2 (07:23→21:35)
[2021-06-10] MEDS: predniSONE 10 MG TAB PO SCH (07:23)
[2021-06-10] MEDS: FINASTERIDE 5 MG TAB PO SCH (07:23)
[2021-06-10] MEDS: TAMSULOSIN 0.4 MG CAP PO SCH (07:23)
[2021-06-10] MEDS: REMEDY PHYTOPLEX Z-GUARD PASTE 113GM TUBE (FROM STOREROOM PRODUCT) TOP SCH ×3 (07:24→21:00)
[2021-06-10 07:37] LABS: BASO # 0.1 10^3/uL (0.0-0.2); BASO % 0.8 % (0.0-1.0); EOS # 0.1 10^3/uL (0.0-0.5); EOS % 0.8 % (0.0-3.0); HEMATOCRIT 34.2 % (42.0-52.0); HEMOGLOBIN 10.7 g/dl (13.5-17.5); LYMPH # 1.1 10^3/uL (1.5-5.0); LYMPH % 16.1 % (24.0-44.0); MEAN CORPUSCULAR HEMOGLOBIN 31.8 pg (27.0-33.0); MEAN CORPUSCULAR HGB CONC 31.3 g/dl (32.0-36.5); MEAN CORPUSCULAR VOLUME 101.5 fl (80.0-96.0); MONO # 0.9 10^3/uL (0.0-0.8); MONO % 12.9 % (2.0-8.0); NEUTROPHILS # 4.4 10^3/uL (1.5-8.5); NEUTROPHILS % 67.3 % (36.0-66.0); RED BLOOD COUNT 3.37 10^6/uL (4.30-6.10); WHITE BLOOD COUNT 6.6 10^3/uL (4.0-10.0)
[2021-06-10 07:50] LABS: PLATELET COUNT, AUTOMATED 95 10^3/uL (150-450)
[2021-06-10 07:56] LABS: CALCIUM LEVEL 8.4 MG/DL (8.8-10.2); CREATININE FOR GFR 2.27 MG/DL (0.70-1.30); GLOMERULAR FILTRATION RATE 29.9 (>42); POTASSIUM SERUM 4.5 MEQ/L (3.5-5.1)
--- NOTE | 2021-06-10 11:47 | IPNPDOC ---
PM&R Progress Note DATE OF SERVICE: Jun 10, 2021 Commercial Manager Progress Note Subjective: Patient reporting he feels good today and thinks a Tuesday discharge will work for him. He understands that he is taking more pills because of his vitamin deficiencies which may have contributed to his weakness and agrees to take them. REVIEW OF SYSTEMS: The following is a completed review of systems and has been reviewed. Review of systems otherwise unremarkable. PAIN: Patient self reports no pain EYES: No recent vision changes EARS, NOSE, & THROAT: No throat pain, or dysphagia, or rhinorrhea CARDIOVASCULAR: Denies chest pain or palpitations PULMONARY: Denies shortness of breath GASTROINTESTINAL: Denies constipation/diarrhea GENITOURINARY: denies dysuria MUSCULOSKELETAL: generalized weakness NEUROLOGICAL: +peripheral polyneuropathy HEMATOLOGICAL: +anemia SKIN:denies rash PSYCHIATRIC: Unremarkable All other review of systems found to be negative. PHYSICAL EXAMINATION: VITAL SIGNS: Please see below. GENERAL: Pleasant and cooperative. No acute distress. HEENT: PERRL. Extraocular movements intact. Clear conjunctiva, +dentures CARDIOVASCULAR: Regular rate and rhythm. No murmurs, rubs, or gallops]. LUNGS: Clear to auscultation bilaterally. No wheezes. No rhonchi ABDOMEN: distended, no guarding, non TTP, +bowel sounds NEUROLOGICAL: Alert and oriented times three. Cranial nerves II through XII grossly intact. Sensation diminished to light touch bilat EL in stocking pattern EXTREMITIES: 5\5 strength bilateral upper extremities. 4+\5 strength right lower extremity. 4+/5 strength in left lower extremity. 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 Rehab- PT/OT advance mobility and ADls, strengthen/stretch/maintain ROM all 4 limbs 2. 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 Cardiac- hx of Afib with episodes of asymptomatic and occasional bradycardia- c/u Eliquis and low dose metoprolol with holding parameters -f/u cardiology for possible PM in future -HLD c/u statin -medicine consulted to assist in overall management 4. Resp- monitor for infection -severe pulmonary HTN monitor for need for supplemental 02 5. Vasc-hx of PAD with Bilateral arterial dopplers show chronic plaquing, anterior tibial arteries occluded, f/u D/w Dr. Brito for outpatient w/u 6. GI- cirrhosis etiology unknown f/u GI outpatient -C diff, completed Dificid dosing 05-10-21, off precautions, room terminally cleaned 06-08-21, no more diarrhea -GI ppx- protonix 7. Heme- thrombocytopenia from cirrhosis, monitor platelets -anemia of chronic disease, aranesp and prbcs per renal 8. 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 Pain- tylnenol prn, gabapentin for neuropathy 10. Endo- hx of hypothyroidism c/u synthroid 11. - BPH c/u proscar and flomax 12. psych- rozerem for insomnia 13. Dispo- 06-14-21 to home, progressing towards goals Allergies Coded Allergies: No Known Allergies (Verified , 08/01/18) Vital Signs Vital Signs Date Time Temp Pulse Resp B/P (MAP) Pulse Ox O2 Delivery O2 Flow Rate FiO2 06/10/21 07:23 66 114/56 06/10/21 06:00 98.1 18 94 Room Air Laboratory Data CBC/BMP Laboratory Tests 06/10/21 07:20 Labs 24H Laboratory Tests 2 06/10/21 07:20: Immature Granulocyte % (Auto) 2.1, Neutrophils (%) (Auto) 67.3H, Lymphocytes (%) (Auto) 16.1L, Monocytes (%) (Auto) 12.9H, Eosinophils (%) (Auto) 0.8, Basophils (%) (Auto) 0.8, Neutrophils # (Auto) 4.4, Lymphocytes # (Auto) 1.1L, Monocytes # (Auto) 0.9H, Eosinophils # (Auto) 0.1, Basophils # (Auto) 0.1, Nucleated Red Blood Cells % (auto) 0.5H, Immature Platelet Fraction 3.7, Anion Gap 4L, Glomerular Filtration Rate 29.9L, Calcium Level 8.4L Current Medications Current Medications Current Medications Medications (Trade) Dose Ordered Sig/Dorothy Route PRN Reason Start Time Stop Time Status Last Admin Dose Admin Acetaminophen (Tylenol Tab) 650 mg Q4HP PRN PO fever/MILD PAIN (PS 1-4) 06/03/21 15:45 06/05/21 21:11 Apixaban (Eliquis) 2.5 mg BID PO 06/03/21 21:00 06/10/21 07:23 Atorvastatin Calcium (Lipitor) 20 mg QHS PO 06/03/21 21:00 06/09/21 20:59 Bisacodyl (Dulcolax Suppository) 10 mg DAILYPRN PRN [place] CONSTIPATION 06/03/21 15:45 Cyanocobalamin (Vitamin B12) 1,000 mcg DAILY PO 06/04/21 09:00 06/10/21 07:23 Darbepoetin Gerald (Aranesp (Dialysis Use)) 100 mcg HD IV 06/04/21 18:10 06/06/21 12:11 Docusate Sodium (Colace) 100 mg BID PO 06/03/21 21:00 06/10/21 07:23 Finasteride (Proscar) 5 mg DAILY PO 06/04/21 09:00 06/10/21 07:23 Folic Acid (Folic Acid) 1 mg DAILY PO 06/04/21 09:00 06/10/21 07:23 Gabapentin (Neurontin) 200 mg QHS PO 06/03/21 21:00 06/09/21 20:59 Heparin Sodium (Heparin) Please refer to ... ASDIRECTED XX 06/09/21 06:00 06/10/21 05:59 DC Heparin Sodium (Heparin) dose as per volume indica... ASDIRECTED PRN IV SEE LABEL COMMENTS 06/09/21 06:00 06/09/21 08:54 DC Levothyroxine Sodium (Synthroid) 88 mcg DAILY@06 PO 06/04/21 06:00 06/10/21 06:13 Magnesium Sulfate (Epsom Salt) daily at 5pm soak BILATE... DAILY@1700 TOP 06/05/21 17:00 06/09/21 18:56 Metoprolol Tartrate (Lopressor) 12.5 mg BID PO 06/03/21 21:00 06/10/21 07:23 Pantoprazole Sodium (Protonix) 40 mg DAILY PO 06/04/21 09:00 06/10/21 07:23 Prednisone (Deltasone) 10 mg DAILY PO 06/04/21 09:00 06/10/21 07:23 Ramelteon (Rozerem) 8 mg QHS PO 06/03/21 21:00 06/09/21 20:59 Senna (Senokot) 1 tab QHS PO 06/03/21 21:00 06/08/21 21:35 Tamsulosin HCl (Flomax) 0.4 mg DAILY PO 06/04/21 09:00 06/10/21 07:23 Thiamine HCl (Thiamine HCl) 100 mg DAILY PO 06/04/21 09:00 06/10/21 07:23 JAYDE BAEZ MD Jun 10, 2021 11:47
[2021-06-10 14:00] VITALS: BP 143/67
[2021-06-10] MEDS: MAGNESIUM SULFATE GRANULES(EPSOM SALT) 1LB TOP SCH (15:48)
[2021-06-10] MEDS: ATORVASTATIN 20 MG TAB PO SCH (21:35)
[2021-06-10] MEDS: SENNA 8.6 MG TAB (SENOKOT) PO SCH (21:35)
[2021-06-10] MEDS: RAMELTEON 8 MG TAB (ROZEREM) PO SCH (21:36)
[2021-06-10] MEDS: GABAPENTIN 100 MG CAP PO SCH (21:36)
[2021-06-10 22:00] VITALS: BP 140/70
[2021-06-11] MEDS: LEVOTHYROXINE 88MCG TABLET (0.088 MG) PO SCH (05:32)
[2021-06-11 06:00] VITALS: BP 123/59
[2021-06-11] MEDS: METOPROLOL TART 12.5 MG PER 1/2 TAB PO SCH ×2 (07:52→21:36)
[2021-06-11] MEDS: CYANOCOBALAMIN 500 MCG TAB PO SCH (07:52)
[2021-06-11] MEDS: FOLIC ACID 1 MG TAB PO SCH (07:52)
[2021-06-11] MEDS: THIAMINE 100 MG TAB PO SCH (07:52)
[2021-06-11] MEDS: DOCUSATE SODIUM 100MG CAPSULE PO SCH ×2 (07:52→21:00)
[2021-06-11] MEDS: FINASTERIDE 5 MG TAB PO SCH (07:52)
[2021-06-11] MEDS: PANTOPRAZOLE 40MG TAB (PROTONIX) PO SCH (07:52)
[2021-06-11] MEDS: predniSONE 10 MG TAB PO SCH (07:52)
[2021-06-11] MEDS: APIXABAN 2.5 MG TAB (ELIQUIS) PO SCH ×2 (07:52→21:37)
[2021-06-11] MEDS: TAMSULOSIN 0.4 MG CAP PO SCH (07:52)
[2021-06-11] MEDS: REMEDY PHYTOPLEX Z-GUARD PASTE 113GM TUBE (FROM STOREROOM PRODUCT) TOP SCH ×3 (07:53→21:37)
--- NOTE | 2021-06-11 08:49 | IPNPDOC ---
PM&R Progress Note DATE OF SERVICE: Jun 11, 2021 Internal Medicine Physician Progress Note Subjective: Patient reporting he feels well today and understands he should take his vitamin supplements. He was also instructed to not walk around the room on his own and to remember to use the walker. REVIEW OF SYSTEMS: The following is a completed review of systems and has been reviewed. Review of systems otherwise unremarkable. PAIN: Patient self reports no pain EYES: No recent vision changes EARS, NOSE, & THROAT: No throat pain, or dysphagia, or rhinorrhea CARDIOVASCULAR: Denies chest pain or palpitations PULMONARY: Denies shortness of breath GASTROINTESTINAL: Denies constipation/diarrhea GENITOURINARY: denies dysuria MUSCULOSKELETAL: generalized weakness NEUROLOGICAL: +peripheral polyneuropathy HEMATOLOGICAL: +anemia SKIN:denies rash PSYCHIATRIC: Unremarkable All other review of systems found to be negative. PHYSICAL EXAMINATION: VITAL SIGNS: Please see below. GENERAL: Pleasant and cooperative. No acute distress. HEENT: PERRL. Extraocular movements intact. Clear conjunctiva, +dentures CARDIOVASCULAR: Regular rate and rhythm. No murmurs, rubs, or gallops]. LUNGS: Clear to auscultation bilaterally. No wheezes. No rhonchi ABDOMEN: distended, no guarding, non TTP, +bowel sounds NEUROLOGICAL: Alert and oriented times three. Cranial nerves II through XII grossly intact. Sensation diminished to light touch bilat EL in stocking pattern EXTREMITIES: 5\5 strength bilateral upper extremities. 4+\5 strength right lower extremity. 4+/5 strength in left lower extremity. 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 Rehab- PT/OT advance mobility and ADls, strengthen/stretch/maintain ROM all 4 limbs 2. 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 Cardiac- hx of Afib with episodes of asymptomatic and occasional bradycardia- c/u Eliquis and low dose metoprolol with holding parameters -f/u cardiology for possible PM in future -HLD c/u statin -medicine consulted to assist in overall management 4. Resp- monitor for infection -severe pulmonary HTN monitor for need for supplemental 02 5. Vasc-hx of PAD with Bilateral arterial dopplers show chronic plaquing, anterior tibial arteries occluded, f/u D/w Dr. Brito for outpatient w/u 6. GI- cirrhosis etiology unknown f/u GI outpatient -C diff, completed Dificid dosing 05-10-21, off precautions, room terminally cleaned 06-08-21, no more diarrhea -GI ppx- protonix 7. Heme- thrombocytopenia from cirrhosis, monitor platelets -anemia of chronic disease, aranesp and prbcs per renal 8. 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 Pain- tylnenol prn, gabapentin for neuropathy 10. Endo- hx of hypothyroidism c/u synthroid 11. - BPH c/u proscar and flomax 12. psych- rozerem for insomnia 13. Dispo- 06-14-21 to home, progressing towards goals Allergies Coded Allergies: No Known Allergies (Verified , 08/01/18) Vital Signs Vital Signs Date Time Temp Pulse Resp B/P (MAP) Pulse Ox O2 Delivery O2 Flow Rate FiO2 06/11/21 07:52 63 123/59 06/11/21 06:00 97.5 18 97 Room Air Current Medications Current Medications Current Medications Medications (Trade) Dose Ordered Sig/Dorothy Route PRN Reason Start Time Stop Time Status Last Admin Dose Admin Acetaminophen (Tylenol Tab) 650 mg Q4HP PRN PO fever/MILD PAIN (PS 1-4) 06/03/21 15:45 06/05/21 21:11 Apixaban (Eliquis) 2.5 mg BID PO 06/03/21 21:00 06/11/21 07:52 Atorvastatin Calcium (Lipitor) 20 mg QHS PO 06/03/21 21:00 06/10/21 21:35 Bisacodyl (Dulcolax Suppository) 10 mg DAILYPRN PRN [place] CONSTIPATION 06/03/21 15:45 Cyanocobalamin (Vitamin B12) 1,000 mcg DAILY PO 06/04/21 09:00 06/11/21 07:52 Darbepoetin Gerald (Aranesp (Dialysis Use)) 100 mcg HD IV 06/04/21 18:10 06/06/21 12:11 Docusate Sodium (Colace) 100 mg BID PO 06/03/21 21:00 06/11/21 07:52 Finasteride (Proscar) 5 mg DAILY PO 06/04/21 09:00 06/11/21 07:52 Folic Acid (Folic Acid) 1 mg DAILY PO 06/04/21 09:00 06/11/21 07:52 Gabapentin (Neurontin) 200 mg QHS PO 06/03/21 21:00 06/10/21 21:36 Heparin Sodium (Heparin) Please refer to ... ASDIRECTED XX 06/09/21 06:00 06/10/21 05:59 DC Heparin Sodium (Heparin) Please refer to ... ASDIRECTED XX 06/11/21 08:10 06/12/21 08:09 Heparin Sodium (Heparin) dose as per volume indica... ASDIRECTED PRN IV SEE LABEL COMMENTS 06/09/21 06:00 06/09/21 08:54 DC Heparin Sodium (Heparin) dose as per volume indica... ASDIRECTED PRN IV SEE LABEL COMMENTS 06/11/21 08:10 06/12/21 08:09 Levothyroxine Sodium (Synthroid) 88 mcg DAILY@06 PO 06/04/21 06:00 06/11/21 05:32 Magnesium Sulfate (Epsom Salt) daily at 5pm soak BILATE... DAILY@1700 TOP 06/05/21 17:00 06/10/21 15:48 Metoprolol Tartrate (Lopressor) 12.5 mg BID PO 06/03/21 21:00 06/11/21 07:52 Pantoprazole Sodium (Protonix) 40 mg DAILY PO 06/04/21 09:00 06/11/21 07:52 Prednisone (Deltasone) 10 mg DAILY PO 06/04/21 09:00 06/11/21 07:52 Ramelteon (Rozerem) 8 mg QHS PO 06/03/21 21:00 06/10/21 21:36 Senna (Senokot) 1 tab QHS PO 06/03/21 21:00 06/10/21 21:35 Tamsulosin HCl (Flomax) 0.4 mg DAILY PO 06/04/21 09:00 06/11/21 07:52 Thiamine HCl (Thiamine HCl) 100 mg DAILY PO 06/04/21 09:00 06/11/21 07:52 JAYDE BAEZ MD Jun 11, 2021 08:49
--- NOTE | 2021-06-11 12:32 | IPN ---
NEPHROLOGY PROGRESS NOTE DATE: 06/11/2021 SUBJECTIVE: Patient was seen and examined at the bedside today morning in the rehab unit. He is afebrile and hemodynamically stable. He reports that he is gaining more strength now. Today is patient's regular day of dialysis. Patient also reports that he feels like his urine output is improving. OBJECTIVE: VITAL SIGNS: Temperature 97.5 degrees Fahrenheit, blood pressure 123/59, pulse 63, respiratory rate 18, saturating 97% on room air. INTAKE/OUTPUT: Urine output is not recorded. He has had five voids since overnight. Weight in the bed scale is not available. PHYSICAL EXAMINATION: GENERAL: Patient is awake, alert, oriented x3, sitting up in the recliner, in no apparent distress. HEAD/NECK: Extraocular muscles intact. Pupils equally round and reactive to light. Mucous membranes are moist. Neck is supple. He has a tunneled hemodialysis catheter. CARDIOVASCULAR: S1, S2, regular rate. 1+ edema of the ankles. RESPIRATORY: Chest is clear to auscultation bilaterally. Bilateral equal air entry. No rales or rhonchi. ABDOMEN: Soft, positive bowel sounds, nontender. No organomegaly. MUSCULOSKELETAL: No clubbing or cyanosis. Pulses are 2+. 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 Power is 5/5 in all extremities. LABORATORY REVIEW: CBC from is yesterday with hemoglobin 10.7. BMP is from yesterday with creatinine 2.2. CURRENT INPATIENT MEDICATIONS: Patient's medications were all reviewed by myself. No significant change in the medications today as compared with yesterday. ASSESSMENT AND PLAN: 1. Acute renal failure superimposed on chronic kidney disease: Patient is being treated for IGA nephropathy. He is on prednisone. His urine output is slightly improving. He is going to get hemodialysis done today and I would monitor his renal function for signs of renal improvement. 2. Anemia and renal failure: Patient's latest hemoglobin is more than 10, which is optimal. Continue current dose of Aranesp with dialysis. 3. IGA nephropathy: Continue current dose of prednisone 10 mg p.o. daily for now. 4. Polyneuropathy: Patient is status post I.V. 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 Symptomatically he is getting better. 5. Atrial fibrillation: Patient is on Eliquis. Heart rate is controlled with Metoprolol.
[2021-06-11 13:06] LABS: ALBUMIN 2.6 GM/DL (3.2-5.2); CALCIUM LEVEL 8.6 MG/DL (8.8-10.2); CREATININE FOR GFR 3.19 MG/DL (0.70-1.30); GLOMERULAR FILTRATION RATE 20.2 (>42); PHOSPHORUS LEVEL 3.8 MG/DL (2.5-4.9); POTASSIUM SERUM 4.9 MEQ/L (3.5-5.1)
[2021-06-11] MEDS: MAGNESIUM SULFATE GRANULES(EPSOM SALT) 1LB TOP SCH (16:17)
[2021-06-11 16:30] VITALS: BP 127/62
[2021-06-11 20:00] VITALS: BP 135/71
[2021-06-11] MEDS: SENNA 8.6 MG TAB (SENOKOT) PO SCH (21:00)
[2021-06-11] MEDS: GABAPENTIN 100 MG CAP PO SCH (21:36)
[2021-06-11] MEDS: ATORVASTATIN 20 MG TAB PO SCH (21:36)
[2021-06-11] MEDS: RAMELTEON 8 MG TAB (ROZEREM) PO SCH (21:36)
[2021-06-12 06:00] VITALS: BP 130/70
[2021-06-12] MEDS: LEVOTHYROXINE 88MCG TABLET (0.088 MG) PO SCH (06:21)
[2021-06-12] MEDS: PANTOPRAZOLE 40MG TAB (PROTONIX) PO SCH (07:37)
[2021-06-12] MEDS: APIXABAN 2.5 MG TAB (ELIQUIS) PO SCH ×2 (07:37→20:29)
[2021-06-12] MEDS: FOLIC ACID 1 MG TAB PO SCH (07:37)
[2021-06-12] MEDS: FINASTERIDE 5 MG TAB PO SCH (07:37)
[2021-06-12] MEDS: predniSONE 10 MG TAB PO SCH (07:37)
[2021-06-12] MEDS: TAMSULOSIN 0.4 MG CAP PO SCH (07:37)
[2021-06-12] MEDS: THIAMINE 100 MG TAB PO SCH (07:37)
[2021-06-12] MEDS: METOPROLOL TART 12.5 MG PER 1/2 TAB PO SCH ×2 (07:38→20:32)
[2021-06-12] MEDS: CYANOCOBALAMIN 500 MCG TAB PO SCH (07:38)
[2021-06-12] MEDS: DOCUSATE SODIUM 100MG CAPSULE PO SCH ×2 (07:39→20:29)
[2021-06-12] MEDS: REMEDY PHYTOPLEX Z-GUARD PASTE 113GM TUBE (FROM STOREROOM PRODUCT) TOP SCH ×3 (07:40→20:30)
[2021-06-12 07:43] LABS: BASO % 0.6 % (0.0-1.0); EOS # 0.1 10^3/uL (0.0-0.5); EOS % 1.1 % (0.0-3.0); HEMATOCRIT 36.4 % (42.0-52.0); HEMOGLOBIN 11.4 g/dl (13.5-17.5); LYMPH # 1.2 10^3/uL (1.5-5.0); LYMPH % 16.8 % (24.0-44.0); MEAN CORPUSCULAR HEMOGLOBIN 31.5 pg (27.0-33.0); MEAN CORPUSCULAR HGB CONC 31.3 g/dl (32.0-36.5); MEAN CORPUSCULAR VOLUME 100.6 fl (80.0-96.0); MONO # 0.7 10^3/uL (0.0-0.8); MONO % 10.3 % (2.0-8.0); NEUTROPHILS % 69.9 % (36.0-66.0); PLATELET COUNT, AUTOMATED 101 10^3/uL (150-450); RED BLOOD COUNT 3.62 10^6/uL (4.30-6.10); WHITE BLOOD COUNT 7.2 10^3/uL (4.0-10.0)
[2021-06-12 08:12] LABS: CALCIUM LEVEL 8.3 MG/DL (8.8-10.2); CREATININE FOR GFR 2.5 MG/DL (0.70-1.30); GLOMERULAR FILTRATION RATE 26.7 (>42); POTASSIUM SERUM 4.1 MEQ/L (3.5-5.1)
--- NOTE | 2021-06-12 09:44 | IPNPDOC ---
PM&R Progress Note DATE OF SERVICE: Jun 12, 2021 [employer] Progress Note Subjective: Patient reporting he feels ready to go home Tuesday and has no complaints. REVIEW OF SYSTEMS: The following is a completed review of systems and has been reviewed. Review of systems otherwise unremarkable. PAIN: Patient self reports no pain EYES: No recent vision changes EARS, NOSE, & THROAT: No throat pain, or dysphagia, or rhinorrhea CARDIOVASCULAR: Denies chest pain or palpitations PULMONARY: Denies shortness of breath GASTROINTESTINAL: Denies constipation/diarrhea GENITOURINARY: denies dysuria MUSCULOSKELETAL: generalized weakness NEUROLOGICAL: +peripheral polyneuropathy HEMATOLOGICAL: +anemia SKIN:denies rash PSYCHIATRIC: Unremarkable All other review of systems found to be negative. PHYSICAL EXAMINATION: VITAL SIGNS: Please see below. GENERAL: Pleasant and cooperative. No acute distress. HEENT: PERRL. Extraocular movements intact. Clear conjunctiva, +dentures CARDIOVASCULAR: Regular rate and rhythm. No murmurs, rubs, or gallops]. LUNGS: Clear to auscultation bilaterally. No wheezes. No rhonchi ABDOMEN: distended, no guarding, non TTP, +bowel sounds NEUROLOGICAL: Alert and oriented times three. Cranial nerves II through XII grossly intact. Sensation diminished to light touch bilat EL in stocking pattern EXTREMITIES: 5\5 strength bilateral upper extremities. 4+\5 strength right lower extremity. 4+/5 strength in left lower extremity. 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 Rehab- PT/OT advance mobility and ADls, strengthen/stretch/maintain ROM all 4 limbs 2. 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 Cardiac- hx of Afib with episodes of asymptomatic and occasional bradycardia- c/u Eliquis and low dose metoprolol with holding parameters -f/u cardiology for possible PM in future -HLD c/u statin -medicine consulted to assist in overall management 4. Resp- monitor for infection -severe pulmonary HTN monitor for need for supplemental 02 5. Vasc-hx of PAD with Bilateral arterial dopplers show chronic plaquing, anterior tibial arteries occluded, f/u D/w Dr. Brito for outpatient w/u 6. GI- cirrhosis etiology unknown f/u GI outpatient -C diff, completed Dificid dosing 05-10-21, off precautions, room terminally cleaned 06-08-21, no more diarrhea -GI ppx- protonix 7. Heme- thrombocytopenia from cirrhosis, monitor platelets -anemia of chronic disease, aranesp and prbcs per renal 8. 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 Pain- tylnenol prn, gabapentin for neuropathy 10. Endo- hx of hypothyroidism c/u synthroid 11. - BPH c/u proscar and flomax 12. psych- rozerem for insomnia 13. Dispo- 06-14-21 to home, progressing towards goals Allergies Coded Allergies: No Known Allergies (Verified , 08/01/18) Vital Signs Vital Signs Date Time Temp Pulse Resp B/P (MAP) Pulse Ox O2 Delivery O2 Flow Rate FiO2 06/12/21 07:38 67 130/70 06/12/21 06:00 97.2 18 98 Room Air Laboratory Data CBC/BMP Laboratory Tests 06/11/21 12:06 06/12/21 07:24 Labs 24H Laboratory Tests 2 06/11/21 12:06: Anion Gap 8, Glomerular Filtration Rate 20.2L, Calcium Level 8.6L, Phosphorus Level 3.8, Albumin 2.6L 06/12/21 07:24: Anion Gap 7L, Glomerular Filtration Rate 26.7L, Calcium Level 8.3L, Immature Gra nulocyte % (Auto) 1.3, Neutrophils (%) (Auto) 69.9H, Lymphocytes (%) (Auto) 16.8L, Monocytes (%) (Auto) 10.3H, Eosinophils (%) (Auto) 1.1, Basophils (%) (Auto) 0.6, Neutrophils # (Auto) 5.0, Lymphocytes # (Auto) 1.2L, Monocytes # (Auto) 0.7, Eosinophils # (Auto) 0.1, Basophils # (Auto) 0.0, Nucleated Red Blood Cells % (auto) 0.0 Current Medications Current Medications Current Medications Medications (Trade) Dose Ordered Sig/Dorothy Route PRN Reason Start Time Stop Time Status Last Admin Dose Admin Acetaminophen (Tylenol Tab) 650 mg Q4HP PRN PO fever/MILD PAIN (PS 1-4) 06/03/21 15:45 06/05/21 21:11 Apixaban (Eliquis) 2.5 mg BID PO 06/03/21 21:00 06/12/21 07:37 Atorvastatin Calcium (Lipitor) 20 mg QHS PO 06/03/21 21:00 06/11/21 21:36 Bisacodyl (Dulcolax Suppository) 10 mg DAILYPRN PRN OR CONSTIPATION 06/03/21 15:45 Cyanocobalamin (Vitamin B12) 1,000 mcg DAILY PO 06/04/21 09:00 06/12/21 07:38 Darbepoetin Gerald (Aranesp (Dialysis Use)) 100 mcg HD IV 06/04/21 18:10 06/06/21 12:11 Docusate Sodium (Colace) 100 mg BID PO 06/03/21 21:00 06/12/21 07:39 Finasteride (Proscar) 5 mg DAILY PO 06/04/21 09:00 06/12/21 07:37 Folic Acid (Folic Acid) 1 mg DAILY PO 06/04/21 09:00 06/12/21 07:37 Gabapentin (Neurontin) 200 mg QHS PO 06/03/21 21:00 06/11/21 21:36 Heparin Sodium (Heparin) Please refer to ... ASDIRECTED XX 06/09/21 06:00 06/10/21 05:59 DC Heparin Sodium (Heparin) Please refer to ... ASDIRECTED XX 06/11/21 08:10 06/12/21 08:09 DC Heparin Sodium (Heparin) dose as per volume indica... ASDIRECTED PRN IV SEE LABEL COMMENTS 06/09/21 06:00 06/09/21 08:54 DC Heparin Sodium (Heparin) dose as per volume indica... ASDIRECTED PRN IV SEE LABEL COMMENTS 06/11/21 08:10 06/12/21 08:09 DC Levothyroxine Sodium (Synthroid) 88 mcg DAILY@06 PO 06/04/21 06:00 06/12/21 06:21 Magnesium Sulfate (Epsom Salt) daily at 5pm akbar ALBERTO... DAILY@1700 HIREN 06/05/21 17:00 06/11/21 16:17 Metoprolol Tartrate (Lopressor) 12.5 mg BID PO 06/03/21 21:00 06/12/21 07:38 Pantoprazole Sodium (Protonix) 40 mg DAILY PO 06/04/21 09:00 06/12/21 07:37 Prednisone (Deltasone) 10 mg DAILY PO 06/04/21 09:00 06/12/21 07:37 Ramelteon (Rozerem) 8 mg QHS PO 06/03/21 21:00 06/11/21 21:36 Senna (Senokot) 1 tab QHS PO 06/03/21 21:00 06/10/21 21:35 Tamsulosin HCl (Flomax) 0.4 mg DAILY PO 06/04/21 09:00 06/12/21 07:37 Thiamine HCl (Thiamine HCl) 100 mg DAILY PO 06/04/21 09:00 06/12/21 07:37 JAYDE BAEZ MD Jun 12, 2021 09:44
[2021-06-12] MEDS ORDERED: FINA5TAB2 PO (09:48)
[2021-06-12] MEDS ORDERED: METO1TAB87 PO (09:48)
[2021-06-12] MEDS ORDERED: ATOR1TAB21 PO (09:48)
[2021-06-12] MEDS ORDERED: FOLI1TAB11 PO (09:48)
[2021-06-12] MEDS ORDERED: VITA500T40 PO (09:48)
[2021-06-12] MEDS ORDERED: GABA-1171 PO (09:48)
[2021-06-12] MEDS ORDERED: THIA100TA PO (09:48)
[2021-06-12] MEDS ORDERED: SYNT88TA2 PO (09:48)
[2021-06-12] MEDS ORDERED: ELIQ2.5T PO (09:48)
[2021-06-12] MEDS ORDERED: FLOM0.4C39 PO (09:48)
[2021-06-12] MEDS ORDERED: PRED10TA2 PO (09:48)
[2021-06-12 14:00] VITALS: BP 100/58
[2021-06-12] MEDS: MAGNESIUM SULFATE GRANULES(EPSOM SALT) 1LB TOP SCH (17:00)
[2021-06-12 20:00] VITALS: BP 133/68
[2021-06-12] MEDS: SENNA 8.6 MG TAB (SENOKOT) PO SCH (20:29)
[2021-06-12] MEDS: RAMELTEON 8 MG TAB (ROZEREM) PO SCH (20:29)
[2021-06-12] MEDS: ATORVASTATIN 20 MG TAB PO SCH (20:30)
[2021-06-12] MEDS: GABAPENTIN 100 MG CAP PO SCH (20:30)
[2021-06-13] MEDS: LEVOTHYROXINE 88MCG TABLET (0.088 MG) PO SCH (05:54)
[2021-06-13 06:00] VITALS: BP 142/65
[2021-06-13] MEDS: METOPROLOL TART 12.5 MG PER 1/2 TAB PO SCH ×2 (08:42→20:41)
[2021-06-13] MEDS: TAMSULOSIN 0.4 MG CAP PO SCH (08:42)
[2021-06-13] MEDS: DOCUSATE SODIUM 100MG CAPSULE PO SCH ×2 (08:42→20:39)
[2021-06-13] MEDS: APIXABAN 2.5 MG TAB (ELIQUIS) PO SCH ×2 (08:43→20:39)
[2021-06-13] MEDS: FINASTERIDE 5 MG TAB PO SCH (08:43)
[2021-06-13] MEDS: FOLIC ACID 1 MG TAB PO SCH (08:43)
[2021-06-13] MEDS: predniSONE 10 MG TAB PO SCH (08:43)
[2021-06-13] MEDS: THIAMINE 100 MG TAB PO SCH (08:44)
[2021-06-13] MEDS: PANTOPRAZOLE 40MG TAB (PROTONIX) PO SCH (08:44)
[2021-06-13] MEDS: REMEDY PHYTOPLEX Z-GUARD PASTE 113GM TUBE (FROM STOREROOM PRODUCT) TOP SCH ×3 (08:45→20:45)
[2021-06-13] MEDS: CYANOCOBALAMIN 500 MCG TAB PO SCH (08:45)
[2021-06-13 08:46] LABS: BASO # 0.1 10^3/uL (0.0-0.2); BASO % 0.6 % (0.0-1.0); EOS # 0.1 10^3/uL (0.0-0.5); EOS % 0.7 % (0.0-3.0); HEMATOCRIT 37.9 % (42.0-52.0); HEMOGLOBIN 11.7 g/dl (13.5-17.5); LYMPH # 1.4 10^3/uL (1.5-5.0); LYMPH % 16.9 % (24.0-44.0); MEAN CORPUSCULAR HEMOGLOBIN 31.4 pg (27.0-33.0); MEAN CORPUSCULAR HGB CONC 30.9 g/dl (32.0-36.5); MEAN CORPUSCULAR VOLUME 101.6 fl (80.0-96.0); MONO # 0.8 10^3/uL (0.0-0.8); MONO % 10.3 % (2.0-8.0); NEUTROPHILS # 5.7 10^3/uL (1.5-8.5); PLATELET COUNT, AUTOMATED 126 10^3/uL (150-450); RED BLOOD COUNT 3.73 10^6/uL (4.30-6.10); WHITE BLOOD COUNT 8.1 10^3/uL (4.0-10.0)
[2021-06-13 09:11] LABS: CALCIUM LEVEL 8.3 MG/DL (8.8-10.2); CREATININE FOR GFR 3.18 MG/DL (0.70-1.30); GLOMERULAR FILTRATION RATE 20.2 (>42); POTASSIUM SERUM 4.5 MEQ/L (3.5-5.1)
[2021-06-13] MEDS ORDERED: SODIUM CHLORIDE 0.9% 1000ML IV PRN (10:40)
[2021-06-13] MEDS: DARBEPOETIN 100 MCG/0.5 ML *DIALYSIS* SYRINGE (J0882) IV SCH (11:19)
[2021-06-13 14:00] VITALS: BP 106/62
[2021-06-13] MEDS: MAGNESIUM SULFATE GRANULES(EPSOM SALT) 1LB TOP SCH (17:00)
[2021-06-13] MEDS: RAMELTEON 8 MG TAB (ROZEREM) PO SCH (20:38)
[2021-06-13] MEDS: SENNA 8.6 MG TAB (SENOKOT) PO SCH (20:38)
[2021-06-13] MEDS: GABAPENTIN 100 MG CAP PO SCH (20:38)
[2021-06-13] MEDS: ATORVASTATIN 20 MG TAB PO SCH (20:39)
[2021-06-13 20:41] VITALS: BP 130/68
[2021-06-14] MEDS: LEVOTHYROXINE 88MCG TABLET (0.088 MG) PO SCH (05:48)
[2021-06-14 06:28] VITALS: BP 138/60
[2021-06-14] MEDS: APIXABAN 2.5 MG TAB (ELIQUIS) PO SCH (07:46)
[2021-06-14] MEDS: METOPROLOL TART 12.5 MG PER 1/2 TAB PO SCH (07:46)
[2021-06-14] MEDS: FOLIC ACID 1 MG TAB PO SCH (07:46)
[2021-06-14] MEDS: TAMSULOSIN 0.4 MG CAP PO SCH (07:46)
[2021-06-14] MEDS: DOCUSATE SODIUM 100MG CAPSULE PO SCH (07:46)
[2021-06-14] MEDS: FINASTERIDE 5 MG TAB PO SCH (07:46)
[2021-06-14] MEDS: predniSONE 10 MG TAB PO SCH (07:46)
[2021-06-14] MEDS: PANTOPRAZOLE 40MG TAB (PROTONIX) PO SCH (07:47)
[2021-06-14] MEDS: CYANOCOBALAMIN 500 MCG TAB PO SCH (07:47)
[2021-06-14] MEDS: REMEDY PHYTOPLEX Z-GUARD PASTE 113GM TUBE (FROM STOREROOM PRODUCT) TOP SCH (07:47)
[2021-06-14] MEDS: THIAMINE 100 MG TAB PO SCH (07:47)
--- NOTE | 2021-06-16 12:53 | PMRDS ---
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 HISTORY OF PRESENT ILLNESS: This is a 75-year-old man with a past medical history of atrial fibrillation, no anticoagulation due to a history of GI bleed and fall, CAD, aortic stenosis, pulmonary hypertension, hypothyroidism, endstage renal disease on hemodialysis, IgA nephropathy on chronic steroid, secondary hyperparathyroidism, anemia of chronic disease, peripheral polyneuropathy due to endstage renal disease, BPH, cirrhosis, thrombocytopenia, recent C. Diff infection, who presented to [facility] ED on 05/22/2021 following a fall. 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 Neurology also suspected patient's weakness was due to steroid induced myopathy, vitamin B12 and folate deficiency, multilevel cervical lumbosacral degenerative joint disease, and peripheral polyneuropathy. He was instructed to follow-up with Neurology as an outpatient for a nerve conduction study/EMG. He had episodes of bradycardia and the case was discussed with Cardiology who did not recommend a pacemaker at this time given patient was asymptomatic. He had Enterobacter UTI and was treated with Ciprofloxacin, had ongoing anemia which required blood transfusions, Aranesp and iron supplements. Eventually, he was transitioned to renally dosed Eliquis as his FBOT was negative and anemia source decided to be due to endstage renal disease. He was noted to have impairments in mobility and ADLs and deemed medically appropriate for discharge to ARU. PAST MEDICAL HISTORY: As per HPI. HOSPITAL COURSE: Patient was admitted and enrolled in a comprehensive PT/OT program. He received 24 hour nursing supervision and weekly team meetings were held to discuss his progress. Patient was maintained on vitamin B12, vitamin D and folate supplements. He finished a course of IV Ig prior to coming to ARU and was found to have improved strength in his lower extremities. He had completed a course of Dificid for his recent C. Diff infection and he reported no further bouts of diarrhea and his room was terminally cleaned on 06/08/21. He was taken off precautions. Patient had chronic thrombocytopenia. Platelets remained relatively stable. He also was maintained on daily steroids for his IgA nephropathy. He was placed on low dose metoprolol, withholding parameters for his diagnosis of atrial fibrillation and overall made steady gains in therapy and was deemed medically and functionally stable to return home. DISCHARGE MEDICATIONS: As per instructions. FUNCTIONAL HISTORY: On discharge, the patient was modified independent. Thank you for this referral.
== END 2021-06-14 13:55 | disposition home health service (06) | DRG 94 ==
LOC: M PM&R 14:55
PROVIDERS: ADMIT Physical Medicine & Rehabilitation; ATTEND Physical Medicine & Rehabilitation
DX: G61.0 Guillain-Barre syndrome (principal); N18.6 End stage renal disease; I12.0 Hypertensive chronic kidney disease with stage 5 chronic kidney disease or end stage renal disease; N25.81 Secondary hyperparathyroidism of renal origin; N39.0 Urinary tract infection, site not specified; D69.6 Thrombocytopenia, unspecified; E03.9 Hypothyroidism, unspecified; E87.5 Hyperkalemia; E53.8 Deficiency of other specified B group vitamins; I48.91 Unspecified atrial fibrillation; I25.10 Atherosclerotic heart disease of native coronary artery without angina pectoris; I35.0 Nonrheumatic aortic (valve) stenosis; I27.20 Pulmonary hypertension, unspecified; Z79.899 Other long term (current) drug therapy; D63.1 Anemia in chronic kidney disease; D50.9 Iron deficiency anemia, unspecified; N40.0 Benign prostatic hyperplasia without lower urinary tract symptoms; K74.60 Unspecified cirrhosis of liver; M51.26 Other intervertebral disc displacement, lumbar region; Z87.891 Personal history of nicotine dependence; Z99.2 Dependence on renal dialysis; R00.1 Bradycardia, unspecified; G47.00 Insomnia, unspecified

== ENCOUNTER → 2021-08-10 | Outpatient (CLI) | payer MEDICARE, OTHER ==
[~2021-08-10] MED LIST changes: +ACET1TAB55 PO; +COLA100C5 PO; +DOXY-350 PO; +DOXY-443; -DOXY1CAP60 PO; +DOXY50CA51 PO; +DRIS50003 PO; +ELIQ2.5T PO; +FOLI1TAB11 PO; +LEVO50TA5 PO; +METO1TAB87; +METO1TAB87 PO; +METO25TA4 PO; +MIDO10TA PO; +MIDO2.5T PO; +MIDO5TA PO; +MUCI600T31 PO; +PANT40TA29 PO; +PERCOCET PO; +PROAAER10 INH; +SERT25TA21 PO; +SYNT88TA2 PO; +TAMS1CAP17; +TESS100C PO; +THIA100T7 PO; +THIA100TA PO; +VENTAER INH; +VITA500T40 PO; +VITA500T41 PO
== END ==
LOC: M RAD 13:04
PROVIDERS: ATTEND Internal Medicine Nephrology
DX: Z01.818 Encounter for other preprocedural examination (principal); Z99.2 Dependence on renal dialysis; I12.9 Hypertensive chronic kidney disease with stage 1 through stage 4 chronic kidney disease, or unspecified chronic kidney disease; I48.20 Chronic atrial fibrillation, unspecified; N18.9 Chronic kidney disease, unspecified

== ENCOUNTER 2021-08-12 14:44 | Inpatient (IN) | payer MEDICARE, OTHER ==
[~2021-08-12] VITALS: Ht 177.8 cm; Wt 67.1 kg
[~2021-08-12 14:44] MED LIST changes: -ACET1TAB55 PO; -COLA100C5 PO; -DOXY-350 PO; -DOXY-443; +DOXY1CAP60 PO; -DOXY50CA51 PO; -DRIS50003 PO; -LEVO50TA5 PO; -METO1TAB87; -METO25TA4 PO; -MIDO10TA PO; -MIDO2.5T PO; -MIDO5TA PO; -MUCI600T31 PO; -PANT40TA29 PO; -PERCOCET PO; -PROAAER10 INH; -SERT25TA21 PO; -TAMS1CAP17; -TESS100C PO; -THIA100T7 PO; -VENTAER INH; -VITA500T41 PO
[2021-08-12] MEDS ORDERED: ACETAMINOPHEN TAB 650MG DOSE (2X325MG) PO ONE (15:30)
[2021-08-12 16:23] LABS: HEMATOCRIT 35.2 % (42.0-52.0); HEMOGLOBIN 11.5 g/dl (13.5-17.5); MEAN CORPUSCULAR HEMOGLOBIN 31.8 pg (27.0-33.0); MEAN CORPUSCULAR HGB CONC 32.7 g/dl (32.0-36.5); MEAN CORPUSCULAR VOLUME 97.2 fl (80.0-96.0); PLATELET COUNT, AUTOMATED 220 10^3/uL (150-450); RED BLOOD COUNT 3.62 10^6/uL (4.30-6.10)
--- NOTE | 2021-08-12 16:23 | REP ---
INDICATION: FEVER. COMPARISON: Comparison chest x-ray May 22, 2021. TECHNIQUE: Portable AP sitting chest radiograph. FINDINGS: A right-sided tunnel central venous catheter is seen with its tip in the expected location of the right atrium. Median sternotomy wires are noted. EKG electrodes are seen. Moderate cardiac enlargement is again noted unchanged. There are chronically increased interstitial markings in the bases. No acute infiltrate is appreciated. Pulmonary vasculature is slightly cephalized. IMPRESSION: Cardiomegaly. Prior sternotomy. Central line. Chronically increased interstitial markings in the bases bilaterally. No definite infiltrate. <Electronically signed by Domo Mendieta > 08/12/21 [id number]
[2021-08-12 16:34] LABS: CALCIUM LEVEL 8.7 MG/DL (8.8-10.2); CREATININE FOR GFR 3.16 MG/DL (0.70-1.30); GLOMERULAR FILTRATION RATE 20.4 (>42)
[2021-08-12 16:44] LABS: BASO % 0.3 % (0.0-1.0); EOS % 0.3 % (0.0-3.0); LYMPH # 0.4 10^3/uL (1.5-5.0); LYMPH % 3.5 % (24.0-44.0); MONO # 1.1 10^3/uL (0.0-0.8); MONO % 10.2 % (2.0-8.0); NEUTROPHILS # 9.4 10^3/uL (1.5-8.5); NEUTROPHILS % 84.5 % (36.0-66.0)
[2021-08-12] MEDS ORDERED: ACETAMINOPHEN TAB 650MG DOSE (2X325MG) PO PRN (18:00)
[2021-08-12] MEDS ORDERED: diphenhydrAMINE 50MG/ML VIAL (J1200) IV PRN (18:00)
[2021-08-12] MEDS ORDERED: methylPREDNISolone 125MG 2ML VIAL IV PRN (18:00)
[2021-08-12] MEDS ORDERED: MOM 30ML SUSPENSION UDC PO PRN (18:00)
[2021-08-12] MEDS ORDERED: ALBUTEROL SULFATE 2.5 MG/0.5 ML INH NEB SOLN INH PRN (18:00)
[2021-08-12] MEDS ORDERED: ALBUTEROL 90 MCG/ACT 8GM HFA INHALER INH PRN (18:00)
[2021-08-12] MEDS ORDERED: EPINEPHrine INJ 1 MG/ML 1ML AMP IM PRN (18:00)
[2021-08-12] MEDS ORDERED: FLOM0.4C39 PO (18:05)
[2021-08-12] MEDS ORDERED: VITA500T41 PO (18:05)
[2021-08-12] MEDS ORDERED: FOLI1TAB11 PO (18:05)
[2021-08-12] MEDS ORDERED: DRIS50003 PO (18:05)
[2021-08-12] MEDS ORDERED: ELIQ2.5T PO (18:05)
[2021-08-12] MEDS ORDERED: GABA-1171 PO (18:05)
[2021-08-12] MEDS ORDERED: THIA100T7 PO (18:05)
[2021-08-12] MEDS ORDERED: METO25TA4 PO (18:05)
[2021-08-12] MEDS ORDERED: HOME MED LIST COMPLETE! XX SCH (18:10)
--- NOTE | 2021-08-12 18:51 | HPEPDOC ---
[facility] Medical History & Physical Date of Admission Aug 12, 2021 Date of Service: Aug 12, 2021 Attending Physician: OWEN HARP MD History and Physical CHIEF COMPLAINT: SOB HISTORY OF PRESENT ILLNESS: 76 yo M w/ chronic Afib not on AC due to hx of GI bleed and falls, CAD, aortic stenosis, pulmonary HTN, HTN, hypothyroidism, ESRD on HD, IgA nephropathy on chronic steroids, secondary hyperparathyroidism, anemia of chronic disease, peripheral polyneuropathy due to ESRD, BPH, cirrhosis?, thrombocytopenia, recent C diff infection in 05/2021 who presented to the ED feeling unwell with SOB and was found to be in Afib with RVR to 130-140s. He is hemodynamically stable, but was febrile to 102.6 and on lab evaluation was found to be covid-19 positive. He is saturating 98% on room air currently but appears anxious. Rest of labs showed WBC 11, hgb 11.5, platelets 220, na 137, K 3, BUN 15, Cr 3.16 while CXR showed chronic interstitial markings without wanda infiltrates or effusions. EKG showed Afib with RVR, troponin was negative. He is now being admitted for Afib with RVR with incidental finding of covid-19 infection and associated SIRS criteria. PAST MEDICAL HISTORY: CAD s/p CABG A fib (off of anticoagulation with apixaban) Mitral valve annuloplasty Aortic stenosis HTN History of C. 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 Review of Systems: 10 point review of systems complete, all negative otherwise stated in HPI Physical exam: Vitals: see below General: Lying in bed, No acute distress, NAD, but appears anxious, AOx3 HEENT: NC, AT, PERRLA CVS: Irregular rhythm, tachycardic, +S1S2, PermCath in place Lungs: CTAB. No appreciable wheezing / rales / rhonchi Abdomen: Soft, Obese, Non-distended, Non-tender Extremities: No LE edema, no calf tenderness, WWP Neuro: No focal motor or sensory deficit Psych: Aox3 Labs and Imaging: as summarized above Assessment: 76 yo M w/ chronic Afib not on AC due to hx of GI bleed and falls, CAD, aortic stenosis, pulmonary HTN, HTN, hypothyroidism, ESRD on HD, IgA nephropathy on chronic steroids, secondary hyperparathyroidism, anemia of chronic disease, peripheral polyneuropathy due to ESRD, BPH, cirrhosis?, thrombocytopenia, recent C diff infection in 05/2021 who presented to the ED feeling unwell with SOB and was found to be in Afib with RVR to 130-140s and on lab evaluation was found to be covid-19 positive who is now being admitted for Afib with RVR with incidental finding of covid-19 infection and associated SIRS criteria. Plan: Afib w/ RVR likely 12/23/ covid-19 infection -increase metop from, 12.5 BID to 25 Q6H, while holding the other antihypertensives -telemetry -continue renally dosed eliquis at 2.5 BID Covid-19 infection: -CXR without infiltrates, no hypoxemia -will plan for MABs to reduce risk for progression to severe disease -check covid labs per protocol -continue BID renally dosed eliquis -continue home steroids -droplet isolation -O2 sta Q4H CAD s/p CABG -Denies chest pain, shortness breath, palpitations -c/w Metoprolol at increased dose as noted above, Simvastatin HTN -Hold home Amlodipine -Increasing metop to 25 Q6H i/s/o RVR Mitral valve annuloplasty / Aortic stenosis HLD -c/w Simvastatin ESRD on HD via R IJ PermCath -12/23/ IgA Nephropathy -Will consult Nephrology for HD -c/w Prednisone at home dose Secondary Hyperparathyroidism -managed by nephrology Anemia -stable, per baseline -daily CBC Neuropathy - c/w Gabapentin BPH -c/w Tamsulosin Hypothyroidism -c/w Levothyroxine DVT prophylaxis -on eliquis Vital Signs Vital Signs Date Time Temp Pulse Resp B/P (MAP) Pulse Ox O2 Delivery O2 Flow Rate FiO2 08/12/21 17:11 18 142/68 (92) 98 Room Air 08/12/21 16:29 123 08/12/21 14:44 102.6 Laboratory Data Labs 24H Laboratory Tests 2 08/12/21 15:28: Immature Granulocyte % (Auto) 1.2, Neutrophils (%) (Auto) 84.5H, Lymphocytes (%) (Auto) 3.5L, Monocytes (%) (Auto) 10.2H, Eosinophils (%) (Auto) 0.3, Basophils (%) (Auto) 0.3, Neutrophils # (Auto) 9.4H, Lymphocytes # (Auto) 0.4L, Monocytes # (Auto) 1.1H, Eosinophils # (Auto) 0.0, Basophils # (Auto) 0.0, Immature Granulocyte # (Auto) 0.1H, Nucleated Red Blood Cells % (auto) 0.0, Anion Gap 8, Glomerular Filtration Rate 20.4L, Calcium Level 8.7L 08/12/21 17:01: CBC/BMP Laboratory Tests 08/12/21 15:28 Microbiology Microbiology 08/12/21 Blood Culture, Received Pending 08/12/21 Respiratory Virus Panel (PCR) (JACKI) - Final, Complete SARS-CoV-2 (COVID 19) 08/12/21 Blood Culture, Received Pending Home Medications Scheduled Apixaban (Eliquis) 2.5 Mg Tablet, 2.5 MG PO BID Atorvastatin Calcium (Atorvastatin Calcium) 20 Mg Tablet, 20 MG PO QHS Cyanocobalamin (Vitamin B-12) (Vitamin B-12) 500 Mcg Tablet, 1,000 MCG PO DAILY Ergocalciferol (Vitamin D2) (Drisdol) 1,250 Mcg Capsule, 50,000 UNIT PO QWEEK TUESDAYS Finasteride (Finasteride) 5 Mg Tablet, 5 MG PO DAILY Folic Acid (Folic Acid) 1 Mg Tablet, 1 MG PO DAILY Gabapentin (Gabapentin) 100 Mg Capsule, 200 MG PO QHS Levothyroxine Sodium (Levoxyl) 88 Mcg Tab, 88 MCG PO DAILY Metoprolol Tartrate (Metoprolol Tartrate) 25 Mg Tablet, 12.5 MG PO BID Tamsulosin HCl (Flomax) 0.4 Mg Capsule, 0.4 MG PO DAILY Thiamine HCl (Thiamine HCl) 100 Mg Tablet, 100 MG PO DAILY Allergies Coded Allergies: No Known Allergies (Verified , 08/01/18) A-FIB/CHADSVASC A-FIB History Current/History of A-Fib/PAF?: Yes Current PO Anticoag Therapy: Yes Age/Risk Factor Scoring CHADSVASC: CHADSVASC Response (Comments) Value Age Risk Factor Age >/= 75 years old 2 Gender Risk Factor Male 0 Hx of CHF Yes 1 Hx of HTN Yes 1 Hx of Stroke/TIA/or VTE No 0 Hx of Diabetes No 0 Hx of Vascular Disease Yes 1 Total 5 Treatment Treatment ordered: Apixaban OWEN HARP MD Aug 12, 2021 18:18
[2021-08-12] MEDS ORDERED: POTASSIUM CHLORIDE 10MEQ SR TABLET PO ONE (19:40)
[2021-08-12] MEDS: METOPROLOL TART 25 MG TABLET PO SCH ×2 (19:53→23:58)
[2021-08-12 20:51] VITALS: BP 126/56
[2021-08-12] MEDS ORDERED: GABAPENTIN 100 MG CAP PO SCH (21:00)
[2021-08-12] MEDS ORDERED: ATORVASTATIN 20 MG TAB PO SCH (21:00)
[2021-08-12] MEDS: APIXABAN 2.5 MG TAB (ELIQUIS) PO SCH (21:09)
[2021-08-12] MEDS ORDERED: CASIRIVIMAB/IMDEVIMAB 1,200 MG in NS 250 ML IV ONE (21:30)
[2021-08-12 22:19] VITALS: BP 110/59
[2021-08-12 22:53] VITALS: BP 108/58
[2021-08-12 23:30] VITALS: BP 100/57
[2021-08-12 23:56] VITALS: BP 123/59
[2021-08-13] MEDS ORDERED: ONDANSETRON 4MG/2ML VIAL IV PRN (02:00)
[2021-08-13 04:05] VITALS: BP_SYST 78; BP_SYST 80; BP_DIAS 42
[2021-08-13] MEDS ORDERED: SODIUM CHLORIDE 0.9% 1000ML IV ONE (04:40)
[2021-08-13 05:04] VITALS: BP 78/42
[2021-08-13] MEDS: METOPROLOL TART 25 MG TABLET PO SCH (05:04)
[2021-08-13] MEDS ORDERED: LEVOTHYROXINE 88MCG TABLET (0.088 MG) PO SCH (06:00)
[2021-08-13 06:02] VITALS: BP 88/50
[2021-08-13 06:25] LABS: HEMATOCRIT 30.7 % (42.0-52.0); HEMOGLOBIN 10.1 g/dl (13.5-17.5); MEAN CORPUSCULAR HGB CONC 32.9 g/dl (32.0-36.5); MEAN CORPUSCULAR VOLUME 97.2 fl (80.0-96.0); PLATELET COUNT, AUTOMATED 180 10^3/uL (150-450); RED BLOOD COUNT 3.16 10^6/uL (4.30-6.10); WHITE BLOOD COUNT 8.7 10^3/uL (4.0-10.0)
[2021-08-13 06:53] LABS: CREATININE FOR GFR 3.76 MG/DL (0.70-1.30); GLOMERULAR FILTRATION RATE 16.7 (>42); MAGNESIUM LEVEL 1.8 MG/DL (1.8-2.4); POTASSIUM SERUM 3.6 MEQ/L (3.5-5.1)
[2021-08-13 07:14] VITALS: BP 90/52
[2021-08-13] MEDS: APIXABAN 2.5 MG TAB (ELIQUIS) PO SCH (08:42)
[2021-08-13 08:49] VITALS: BP 113/62
[2021-08-13] MEDS ORDERED: CYANOCOBALAMIN 500 MCG TAB PO SCH (09:00)
[2021-08-13] MEDS ORDERED: TAMSULOSIN 0.4 MG CAP PO SCH (09:00)
[2021-08-13] MEDS ORDERED: THIAMINE 100 MG TAB PO SCH (09:00)
[2021-08-13] MEDS ORDERED: FINASTERIDE 5 MG TAB PO SCH (09:00)
[2021-08-13] MEDS ORDERED: FOLIC ACID 1 MG TAB PO SCH (09:00)
--- NOTE | 2021-08-13 09:03 | DS.PDOC ---
Discharge Summary General Date of Admission Aug 12, 2021 at 17:58 Date of Discharge 08/13/2021 Attending Physician: OWEN HARP MD Discharge Summary PROCEDURES PERFORMED DURING STAY: None ADMITTING DIAGNOSES: Afib with RVR DISCHARGE DIAGNOSES: Afib with RVR Covid-19 infection CAD s/p CABG ESRD on HD s/p Mitral valve annuloplasty Aortic stenosis History of HTN IgA Nephropathy (on Prednisone) Secondary Hyperparathyroidism Anemia Gout Hypothyroidism COMPLICATIONS/CHIEF COMPLAINT: Atrial Fibrillation With Rvr,Esrd On Hemodialysis. HISTORY OF PRESENT ILLNESS: 76 yo M w/ chronic Afib not on AC due to hx of GI bleed and falls, CAD, aortic stenosis, pulmonary HTN, HTN, hypothyroidism, ESRD on HD, IgA nephropathy on chronic steroids, secondary hyperparathyroidism, anemia of chronic disease, peripheral polyneuropathy due to ESRD, BPH, cirrhosis?, thrombocytopenia, recent C diff infection in 05/2021 who presented to the ED feeling unwell with SOB and was found to be in Afib with RVR to 130-140s. HOSPITAL COURSE: On arrival he was hemodynamically stable, but was febrile to 102.6 and on lab evaluation was found to be covid-19 positive. He is saturating 98% on room air. Rest of labs showed WBC 11, hgb 11.5, platelets 220, na 137, K 3, BUN 15, Cr 3.16 while CXR showed chronic interstitial markings without wanda infiltrates or effusions. EKG showed Afib with RVR, troponin was negative. He was admitted for Afib with RVR with finding of covid-19 infection and associated SIRS criteria. He was given MABs to reduce risk of severe covid-19 illness and metop was increase to 25Q6H which was c/b transient hypotension for which he was given 1L NS bolus with good effect. He continues to saturate well on room air. I spoke with Dr. Hobson who has organized for him to get HD this evening at the [facility] at 5pm with schedule T,Th,Sat. Of note, he continues to have intermittent fevers given his covid-19 infection and CXR was negative for infiltrates suggesting a superimposed bacterial component, urnie had sterile pyuria and BCx are negative to date. DISCHARGE MEDICATIONS: Please see below. ALLERGIES: Please see below. PHYSICAL EXAMINATION ON DISCHARGE: VITAL SIGNS: Please see below. General: Lying in bed, No acute distress, NAD, AOx3 HEENT: NC, AT, PERRLA CVS: Irregular rhythm with now regular rate, +S1S2, PermCath in place Lungs: CTAB. No appreciable wheezing / rales / rhonchi Abdomen: Soft, Obese, Non-distended, Non-tender Extremities: No LE edema, no calf tenderness, WWP Neuro: No focal motor or sensory deficit Psych: Aox3 LABORATORY DATA: Please see below. IMAGING: CXR: A right-sided tunnel central venous catheter is seen with its tip in the expected location of the right atrium. Median sternotomy wires are noted. EKG electrodes are seen. Moderate cardiac enlargement is again noted unchanged. There are bank representative nically increased interstitial markings in the bases. No acute infiltrate is appreciated. Pulmonary vasculature is slightly cephalized. IMPRESSION: Cardiomegaly. Prior sternotomy. Central line. Chronically increased interstitial markings in the bases bilaterally. No definite infiltrate. PROGNOSIS: Good ACTIVITY: As tolerated DIET: Renal, 2g sodium DISCHARGE PLAN: Home w/ close nephrology amd PCP follow up. Will give anticipatory albuterol inhaler for SOB and tessalon perles for cough. DISPOSITION: Home DISCHARGE INSTRUCTIONS: Home w/ close nephrology amd PCP follow up. Will give anticipatory albuterol inhaler for SOB and tessalon perles for cough. ITEMS TO FOLLOWUP ON ON OUTPATIENT: covid-19 infection resolution ESRD on HD Chronic Afib DISCHARGE CONDITION: Stable TIME SPENT ON DISCHARGE: 41 minutes. Vital Signs/I&Os Vital Signs Date Time Temp Pulse Resp B/P (MAP) Pulse Ox O2 Delivery O2 Flow Rate FiO2 08/13/21 07:14 90/52 (65) 08/13/21 06:02 98.2 73 08/13/21 04:05 20 94 Room Air 08/13/21 00:00 2.0 I&O- Last 24 Hours up to 6 AM 08/13/21 05:59 Intake Total 560 ml Output Total 50 ml Balance 510 ml Laboratory Data Labs 24H Laboratory Tests 2 08/12/21 15:28: Immature Granulocyte % (Auto) 1.2, Neutrophils (%) (Auto) 84.5H, Lymphocytes (%) (Auto) 3.5L, Monocytes (%) (Auto) 10.2H, Eosinophils (%) (Auto) 0.3, Basophils (%) (Auto) 0.3, Neutrophils # (Auto) 9.4H, Lymphocytes # (Auto) 0.4L, Monocytes # (Auto) 1.1H, Eosinophils # (Auto) 0.0, Basophils # (Auto) 0.0, Immature Granulocyte # (Auto) 0.1H, Nucleated Red Blood Cells % (auto) 0.0, Platelet Estimate , Anion Gap 8, Glomerular Filtration Rate 20.4L, Calcium Level 8.7L, Procalcitonin 0.36 08/12/21 17:01: Urine Color YELLOW, Urine Appearance CLOUDYH, Urine pH 8.0, Urine Specific [place] 1.014, Urine Protein 2+H, Urine Glucose (UA) NEGATIVE, Urine Ketones NEGATIVE, Urine Blood 3+H, Urine Nitrite NEGATIVE, Urine Bilirubin NEGATIVE, Urine Urobilinogen 2.0H, Urine Leukocyte Esterase TRACEH, Urine WBC (Auto) 5H, Urine RBC (Auto) TNTCH, Urine Hyaline Casts (Auto) 8, Urine Bacteria (Auto) NEGATIVE, Urine Squamous Epithelial Cells 1, Urine Sperm (Auto) 08/13/21 05:55: Nucleated Red Blood Cells % (auto) 0.0, Anion Gap 7L, Glomerular Filtration Rate 16.7L, Calcium Level 8.0L, Magnesium Level 1.8 CBC/BMP Laboratory Tests 08/12/21 15:28 08/13/21 05:55 Microbiology Microbiology 08/12/21 Urine Culture, Received Pending 08/12/21 Blood Culture, Received Pending 08/12/21 Respiratory Virus Panel (PCR) (JACKI) - Final, Complete SARS-CoV-2 (COVID 19) 08/12/21 Blood Culture, Received Pending Discharge Medications Scheduled Apixaban (Eliquis) 2.5 Mg Tablet, 2.5 MG PO BID, (Reported) Atorvastatin Calcium (Atorvastatin Calcium) 20 Mg Tablet, 20 MG PO QHS, (Reported) Cyanocobalamin (Vitamin B-12) (Vitamin B-12) 500 Mcg Tablet, 1,000 MCG PO DAILY, (Reported) Ergocalciferol (Vitamin D2) (Drisdol) 1,250 Mcg Capsule, 50,000 UNIT PO QWEEK, (Reported) TUESDAYS Finasteride (Finasteride) 5 Mg Tablet, 5 MG PO DAILY, (Reported) Folic Acid (Folic Acid) 1 Mg Tablet, 1 MG PO DAILY, (Reported) Gabapentin (Gabapentin) 100 Mg Capsule, 200 MG PO QHS, (Reported) Levothyroxine Sodium (Levoxyl) 88 Mcg Tab, 88 MCG PO DAILY, (Reported) Metoprolol Tartrate (Metoprolol Tartrate) 25 Mg Tablet, 12.5 MG PO BID, ( Reported) Tamsulosin HCl (Flomax) 0.4 Mg Capsule, 0.4 MG PO DAILY, (Reported) Thiamine HCl (Thiamine HCl) 100 Mg Tablet, 100 MG PO DAILY, (Reported) Allergies Coded Allergies: No Known Allergies (Verified , 08/01/18) OWEN HARP MD Aug 13, 2021 09:03
[2021-08-13] MEDS ORDERED: ACET1TAB55 PO (09:07)
[2021-08-13] MEDS ORDERED: TESS100C PO (09:07)
[2021-08-13] MEDS ORDERED: VENTAER INH (09:07)
[2021-08-13] MEDS ORDERED: METOPROLOL TART 12.5 MG PER 1/2 TAB PO SCH (21:00)
--- NOTE | 2021-08-14 00:03 | ECGEPIP ---
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
--- NOTE | 2021-08-14 10:30 | CR ---
CONSULTATION DATE: 08/13/2021 REQUESTING PHYSICIAN: Dr. Karla Gutierrez CONSULTING PHYSICIAN: Dr. Jackie Hobson REASON FOR CONSULTATION: Management of end-stage renal disease. CHIEF COMPLAINT: Patient presented to the hospital yesterday with weakness and shortness of breath. HISTORY OF PRESENT ILLNESS: Raúl Gomez is a 76-year-old male with a past medical history of end-stage renal disease secondary to IGA nephropathy; currently on hemodialysis, coronary artery disease, hypertension, pulmonary hypertension, multiple other comorbidities as mentioned below. Recent hospitalizations in the hospital in the last couple of months; he presented to the hospital with progressive shortness of breath and fever, he was found to have a T-max of 102.6 degrees Fahrenheit. He was found to be COVID-19 positive on the viral labs. He was anxious, had weakness. He was admitted under the hospitalist service last night and given his comorbidities, he was given monoclonal antibodies to reduce the risk of progression and he was placed on COVID-19 isolation unit. Nephrology service was called for further help in the management of end-stage renal disease. Patient was seen and examined by myself today morning. He did have fever spikes today morning, but he reports that he is feeling slightly better today as compared with yesterday. PAST MEDICAL HISTORY: End-stage renal disease on hemodialysis, coronary artery disease; status post CABG, atrial fibrillation, mitral valve annuloplasty, aortic stenosis, hypertension, recent history of C. diff colitis, IGA nephropathy, secondary hyperparathyroidism, anemia and end-stage renal disease, chronic gout and hypothyroidism. PAST SURGICAL HISTORY: Status post coronary artery bypass grafting, status post tunnel dialysis catheter placement and history of renal biopsy. ALLERGIES: No known drug allergies. FAMILY HISTORY: No known family history of end-stage renal disease. SOCIAL HISTORY: Patient denies any smoking, illicit drug abuse or alcohol abuse. He lives with his . REVIEW OF SYSTEMS: CONSTITUTIONAL: He reports fevers and chills and reports weakness. EYES: He denies any blurry vision, double vision. ENT: He denies any dysphagia, odynophagia. CVS: He denies any chest pain or palpitation. RESPIRATORY: He reports shortness of breath. GI: He reports decreased appetite. GENITOURINARY: He denies any dysuria or hematuria. MUSCULOSKELETAL: He denies any muscle aches and pains. SKIN: He denies any rashes or ulcers. HEMATOLOGICAL/ONCOLOGICAL: Denies any easy bleeding or bruising. SALESPERSON NECKTIES: Reports history of neuropathy requiring IVIG. All other review of systems is negative. PHYSICAL EXAMINATION: GENERAL: Patient is awake, alert, oriented x3, sitting up in the sofa. VITAL SIGNS: Temperature T-max 102.7 degrees Fahrenheit early in the morning at 3:00, blood pressure 113/62, pulse 62, respiratory rate 18, saturating 99% on room air. INTAKE/OUTPUT: Urine output recorded as 225 mL. HEAD/NECK: Extraocular muscles intact. Pupils equally round and reactive to light. Mucous membranes are moist. Neck is supple. There is no JVD. He has a tunneled dialysis catheter. CVS: S1, S2, regular rate. No significant edema of the bilateral lower extremities. RESPIRATORY: Diffuse inspiratory crackles bilaterally. ABDOMEN: Soft and distended. MUSCULOSKELETAL: No clubbing or cyanosis. Pulses are 2+. SALESPERSON NECKTIES: No focal deficit. Power is 5/5 in all extremities. LABORATORY REVIEW: CBC showed WBC 11 yesterday; it is 8.7 today, hemoglobin 10.1, platelets 180,000. Urinalysis done yesterday showed it was cloudy with 3+ blood and 5 wbc. BMP done today morning showed sodium 138, potassium 3.6, chloride 100, bicarb 31, BUN 24, creatinine 3.7. MICROBIOLOGY: Respiratory viral panel is positive for COVID-19. Urine culture is negative. IMAGING: A chest x-ray was done on arrival, which showed cardiomegaly and chronically increased interstitial markings. CURRENT INPATIENT MEDICATIONS: Patient is status post monoclonal antibodies for COVID-19 infection, Tylenol p.r.n., Albuterol p.r.n., Eliquis 2.5 mg p.o. twice a day, Lipitor 20 mg p.o. daily, Vitamin B12 1,000 mcg p.o. daily, Proscar 5 mg p.o. daily, folic acid 1 mg p.o. daily, Neurontin 200 mg p.o. q.h.s., Levothyroxine 88 mcg p.o. daily, Solu-Medrol 125 mg I.V. x1 dose was given, Metoprolol 25 mg p.o. every 6 hours which was later on changed to 12.5 mg p.o. twice a day, he was given 500 mL bolus, Zofran p.r.n., Flomax 0.4 mg p.o. daily and Thiamine 100 mg p.o. daily. ASSESSMENT AND PLAN: 1. End-stage renal disease: I was told that patient is feeling better and he will be discharged today. There is no urgency to dialyze the patient inpatient. There is a COVID-19 isolation shift available at [facility] as outpatient. Patient will be dialyzed as an outpatient in the evening. 2. Anemia and end-stage renal disease: Hemoglobin is optimal, it will be managed with URMILA as an outpatient. 3. COVID-19 infection: Patient was given monoclonal antibody. He is taking Tylenol p.r.n. for fevers. His fever is better. 4. Atrial fibrillation with rapid ventricular rate: Initially he was given higher dose of Metoprolol, however because of low blood pressures, Metoprolol dose has been decreased to 12.5 mg p.o. twice a day. 5. History of IGA nephropathy: Patient's prednisone is being tapered down. There are no signs of renal recovery at this time. 6. Weakness and history of polyneuropathy: Patient was given I.V. 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 As per neurology recommendations, if his weakness gets worse, he might need another dose of IVIG. Thank you for involving me in the care of this patient. I shall be happy to follow the patient along with you tomorrow morning if he stays in the hospital.
== END 2021-08-13 13:20 | disposition home health service (06) | DRG 177 ==
LOC: M ED 14:44 → M ED INP 17:58 → M 4MAIN 20:44
PROVIDERS: ADMIT Internal Medicine; ATTEND Internal Medicine
DX: U07.1 COVID-19 (principal); N18.6 End stage renal disease; I48.20 Chronic atrial fibrillation, unspecified; I12.0 Hypertensive chronic kidney disease with stage 5 chronic kidney disease or end stage renal disease; N25.81 Secondary hyperparathyroidism of renal origin; I25.10 Atherosclerotic heart disease of native coronary artery without angina pectoris; I27.20 Pulmonary hypertension, unspecified; E03.9 Hypothyroidism, unspecified; D63.1 Anemia in chronic kidney disease; G62.2 Polyneuropathy due to other toxic agents; N20.0 Calculus of kidney; D69.6 Thrombocytopenia, unspecified; I35.0 Nonrheumatic aortic (valve) stenosis; Z99.2 Dependence on renal dialysis; M10.9 Gout, unspecified; Z95.5 Presence of coronary angioplasty implant and graft; Z79.899 Other long term (current) drug therapy; R53.1 Weakness

== ENCOUNTER 2021-09-03 11:01 | Inpatient (IN) | payer MEDICARE, OTHER ==
[~2021-09-03] VITALS: Ht 172.7 cm; Wt 62.9 kg
[~2021-09-03 11:01] MED LIST changes: +ACET1TAB55 PO; -DOXY1CAP60 PO; +DOXY50CA51 PO; +DRIS50003 PO; +METO25TA4 PO; +TESS100C PO; +THIA100T7 PO; +VENTAER INH; +VITA500T41 PO
[2021-09-03] MEDS ORDERED: SERT25TA21 PO (11:22)
[2021-09-03] MEDS ORDERED: MIDO2.5T PO (11:22)
--- OUTSIDE RECORDS SUMMARY | 2021-09-03 11:53 | CCD | Continuity of Care Document ---
Author Author Raúl PÉREZ PA Organization Unknown Address [address] [facility] [address] [place] [address] Phone [phone] Care Team Providers Care Clinical Lab Assistant Name Role Phone Eduardo Sandoval MD AUTM [phone] [facility] Hea AUTM [phone] Problems Active Problems Provider Date Chronic diastolic heart failure Sinai Skinner nset: 07/16/2011 Coronary arteriosclerosis Kimberly Noble D.O. Onset: 07/16/2011 Gout Kimberly Noble D.O. Onset: 2010 Pure hypercholesterolemia Kimberly Noble D.O. Onset: 07/16/2011 Chronic obstructive lung disease MARY GRACE Mccain Onse t: 07/16/2011 Aortocoronary Bypass Postsurgical Status Kimberly cohen D.O. Onset: 07/16/2011 Social History Type Date Description Comments Sex Unknown ETOH Use Occasionally consumes beer ETOH Use Occasionally consumes wine Tobacco Use Start: Unknown End: Unknown Patient is a former smoker SMOKED FOR 50 YRS 1 PACK A DAY Allergies, Adverse Reactions, Alerts Active Allergies Criticality Reaction | Severity Comments Date Effexor Unable to assess criticality 09/22/2010 Pradaxa,Coumadin Unable to assess criticality hemothorax,rash 12/28/2011 Proscar Unable to assess criticality generic fill er or dye 09/14/2017 Medications Active Medications SIG Qnty Indications Ordering Provide r Date Eliquis 2.5mg Tablets 1 by mouth twice a day 60tabs WILVER Nunez JR 021 Atorvastatin Calcium 20mg Tablets 1 by mouth every day 90tabs WILVER Nunez JR 021 Vitamin B-12 1000mcg Tablets 1 by mouth every day 90tabs WILVER Nunez JR 021 Folic Acid 1mg Tablets 1 by mouth every day 90tabs WILVER Nunez JR 021 Gabapentin 100mg Capsules take two capsule by mouth at bedtime Eduardo Sandoval M.D. 021 Metoprolol Tartrate 25mg Tablets 1/2 by mouth twice a day Gail SkinnerO. Vitamin B-1 100mg Tablets take one capsule by mouth once a month 12tabs WILVER Nunez JR 0 06/17/2021 Ramelteon 8mg Tablets one at bedtime daily as needed for sleep 30tabs WILVER Nunez JR Proscar 5mg Tablets by jesús th daily 90tabs Eduardo Sandoval M.D. 08/31/2017 Flomax 0.4mg Capsules take one capsule by mouth every day 90caps Eduardo Sandoval M.D. 08/31/2017 Levothyroxine Sodium 88mcg Tablets 1 by mouth every day 90tabs Eduardo Sandoval M.D. 08/02/2016 History Medications Prednisone 10mg Tablets 4 by mouth daily for 3 days then 3 daily for 3 days then 2 daily for 3 days then 1 daily for 3 days and stop. 31tabs WILVER Nunez JR 021 - 08/03/2021 Medications Administered in Office Medication SIG Qnty Indications Ordering Provider Date Immunization Adminstration,1 Vaccine/Tox oid Injection Eduardo Sandoval M.D. 020 Depo-Medrol Injection Injection Kimberly Noble D.O. 04/07/2006 Immunizations CPT Code Status Date Vaccine Lot # [id number] Given 08/13/2020 Influenza Vaccin e Quadrivalent Preser/Antibiotic Free Im Use [id number] Given 03/13/2015 Prevnar 13 [id number] Given 04/21/2011 Pneumovax 23 [id number] Given 09/05/2008 Influenza Virus Vaccine [id number] Refused 08/31/2017 Influenza Vaccin e Quadrivalent Preser/Antibiotic Free Im Use Vital Signs Date Vital Result Comment 08/03/2021 2:14pm BP Systolic 110 mmHg BP Diastolic 74 mmHg Heart Rate 56 /min Height 68 inches 5'8" Weight 154.00 lb O2 % BldC Oximetry 97 % RM Air BMI (Body Mass Index) 23.4 kg/m2 07/03/2021 2:09pm BP Systolic 112 mmHg BP Diastolic 76 mmHg Heart Rate 80 /min Height 68 inches 5'8" Weight 157.00 lb BMI (Body Mass Index) 23.9 kg/m2 Results Test Acquired Date Facility Test Result H/L Range Note A1c 07/01/2021 [facility] Orthotist Prosthetist: [place] [address] [phone] Hba1c 5.5 % <5.7 1 Est Avg Glucose 111 mg/dL High 60 - 110 Comprehensive Chem Profile 07/01/2021 [facility] Orthotist Prosthetist: [place] [address] [phone] Glucose 104 mg/dL High 74 - 99 2 BUN 22 mg/dL High 7 - 18 3 Creatinine 2.8 mg/dL High 0.6 - 1.3 Sodium 136 mEq/L 136 - 145 Potassium 3.6 mEq/L 3.5 - 5.1 Chloride 96 mEq/L Low 98 - 107 Carbon Dioxide 34 mEq/L High 21 - 32 Calcium 9.1 mg/dL 8.5 - 10.1 Alk. Phosphatase 98 mg/dL 46 - 116 Total Bilirubin 0.5 mg/dL 0.2 - 1.0 Ast (Sgot) 28 U/L 15 - 37 Alt (SGPT) 25 U/L 12 - 78 Albumin 3.1 g/dL Low 3.4 - 5.0 Total Protein 7.0 g/dL 6.4 - 8.2 A/G Ratio 0.79 CALC Low 1.00 - 1.90 GFR 22 mL/min Low >60 GFR 27 mL/min Low >60 4 Lipid Profile 07/01/2021 [facility] , Orthotist Prosthetist: [place] [address] [phone] Cholesterol 184 mg/dL 131 - 200 Triglycerides 146 mg/dL 30 - 150 HDL Cholesterol 80 mg/dL High 35 - 60 LDL (Calculated) 75 CALC 50 - 159 Laboratory test finding 07/01/2021 [facility] Orthotist Prosthetist: [place] [address] [phone] Thyroid Stimulating Hormone 0.88 uIU/mL 0.3 6 - 3.74 Complete Blood Count 07/01/2021 [facility] Orthotist Prosthetist: [place] [address] [phone] WBC 13.6 x10*3/UL High 4.1 - 10.9 5 RBC 4.09 x10*6/UL Low 4.20 - 6.30 Hemoglobin 12.9 g/dL 12.0 - 18.0 Hematocrit 38.1 % 37.0 - 51.0 MCV 93.2 fL 80.0 - 97.0 MCH 31.5 pg 26.0 - 32.0 MCHC 33.8 g/dL 31.0 - 38.0 RDW 14.6 % High 11.6 - 13.7 PLT 282 x10*3/UL 140 - 440 MPV 8.0 FL 7.8 - 11.0 Lymph % 8.3 % Low 10.0 - 58.5 Mid % 2.3 % 1.7 - 9.3 Neut % 89.4 % 37.0 - 92.0 Lymph # 1.1 x10*3/UL 0.6 - 4.1 Mid # 0.3 x10*3/UL 0.1 - 0.6 Neut # 12.2 x10*3/UL High 2.0 - 7.8 Complete Blood Count 06/17/2021 [facility] Orthotist Prosthetist: [place] [address] [phone] WBC 11.2 x10*3/UL High 4.1 - 10.9 6 RBC 4.02 x10*6/UL Low 4.20 - 6.30 Hemoglobin 12.6 g/dL 12.0 - 18.0 Hematocrit 38.2 % 37.0 - 51.0 MCV 95.0 fL 80.0 - 97.0 MCH 31.5 pg 26.0 - 32.0 MCHC 33.1 g/dL 31.0 - 38.0 RDW 16.3 % High 11.6 - 13.7 PLT 183 x10*3/UL 140 - 440 MPV 8.1 FL 7.8 - 11.0 Lymph % 7.0 % Low 10.0 - 58.5 Mid % 2.7 % 1.7 - 9.3 Neut % 90.3 % 37.0 - 92.0 Lymph # 0.7 x10*3/UL 0.6 - 4.1 Mid # 0.4 x10*3/UL 0.1 - 0.6 Neut # 10.1 x10*3/UL High 2.0 - 7.8 Basic Metabolic Panel 06/17/2021 [facility] Orthotist Prosthetist: Dr Laith Silveira [place], [place] [id number] [phone] Glucose 149 mg/dL High 74 - 99 7 BUN 27 mg/dL High 7 - 18 8 Creatinine 3.1 mg/dL High 0.6 - 1.3 Sodium 140 mEq/L 136 - 145 Potassium 3.8 mEq/L 3.5 - 5.1 Chloride 102 mEq/L 98 - 107 Carbon Dioxide 33 mEq/L High 21 - 32 Calcium 9.1 mg/dL 8.5 - 10.1 GFR 20 mL/min Low >60 GFR 24 mL/min Low >60 9 Laboratory test finding 06/17/2021 [facility] Orthotist Prosthetist: [place] [address] [phone] Thyroid Stimulating Hormone 2.97 uIU/mL 0.3 6 - 3.74 Laboratory test finding 05/22/2021 [place] [id number] [phone] Thyroid Stimulating Hormone 1.940 uIU/ML Normal 0. 358-3.740 Free T4 0.90 ng/dL Normal 0.76-1.46 Laboratory test finding 05/22/2021 [facility] [address] [place] [id number] [phone] Platelet Estimate DECREASED Normal Normal Differential 05/22/2021 [facility] [address] [place], [place] [id number] [phone] Neutrophils 64 % Normal 28-66 Bands 12 % High < 11 Lymphocytes 11 % Low 16-44 Monocytes 9 % High 0-5 Basophils 1 % Normal 0-1 Metamyelocytes 1 % High 0-0 Myelocytes 2 % High 0-0 CBC With Differential 05/22/2021 [facility] [address] [place] [address] [phone] White Blood Count 8.4 10 Normal 4.0-10.0 Red Blood Count 3.35 10 Low 4.30-6.10 Hemoglobin 10.8 g/dL Low 13.5-17.5 Hematocrit 33.7 % Low 42.0-52.0 Mean Corpuscular Volume 100.6 fl High 80.0-96.0 Mean Corpuscular Hemoglobin 32.2 pg Normal 27.0-33.0 Mean Corpuscular HGB Conc 32.0 g/dL Normal 32.0-36.5 Red Cell Distribution Width 15.8 % High 11.5-14.5 Platelet Count, Automated 127 10 Low 150-450 Nucleated Red Blood Cell % 0.2 % High 0-0 Basic Metabolic Profile 05/22/2021 [facility] [address] [place] [address] [phone] Glucose, Fasting 94 mg/dL Normal 70-100 Blood Urea Nitrogen 28 mg/dL High 7-18 Creatinine For GFR 4.03 mg/dL High 0.70-1.30 Glomerular Filtration Rate 15.4 Low >42 1 0 Sodium Level 141 mEq/L Normal 136-145 Potassium Serum 3.8 mEq/L Normal 3.5-5.1 Chloride Level 102 mEq/L Normal 98-107 Carbon Dioxide Level 29 mEq/L Normal 21-32 Anion Gap 10 mEq/L Normal 8-16 Calcium Level 7.9 mg/dL Low 8.8-10.2 Liver Profile 05/22/2021 [facility] [address] [place] [address] [phone] Ast/Sgot 29 U/L Normal 7-37 Alt/SGPT 53 U/L Normal 12-78 Alkaline Phosphatase 131 U/L High 45-117 Bilirubin,Total 0.4 mg/dL Normal 0.2-1.0 Bilirubin,Direct 0.2 mg/dL Normal 0.0-0.2 Total Protein 5.8 GM/DL Low 6.4-8.2 Albumin 2.6 GM/DL Low 3.2-5.2 Albumin/Globulin Ratio 0.8 Normal Cardiac Marker Panel 05/22/2021 [facility] [address] [place] [id number] [phone] CPK Creatine Phosphokinase 58 U/L Normal 39-30 8 CK-MB Value Mass 3.1 NG/ML Normal <3.6 MB/CK Relative Index 5.34 High < Or =4 11 Troponin I 0.14 NG/ML High < 0.10 12 Influenza A/B RSV Covid Amp 05/22/2021 [facility] [address] [place] [address] [phone] Influenza A Amplification NEGATIVE Normal Negati ve 13 Influenza B Amplification NEGATIVE Normal Negative 14 RSV Amplification NEGATIVE Normal Negative 15 Sars Covid-19 Amplification NEGATIVE Normal Negative 16 Laboratory test finding 05/22/2021 [facility] [address] [place] [address] [phone] C Reactive Protein Quantitativ 10.10 mg/dL High 0.00-0.30 Cardiac Marker Panel 05/22/2021 [facility] [address] [place] [address] [phone] CPK Creatine Phosphokinase 55 U/L Normal 39-30 8 CK-MB Value Mass 3.2 NG/ML Normal <3.6 MB/CK Relative Index 5.82 High < Or =4 17 Troponin I 0.13 NG/ML High < 0.10 18 Laboratory test finding 05/07/2021 [facility] [address] [place] [address] [phone] iSTAT Troponin 0.10 NG/ML High 0.00-0.08 Istat Chem8+ Panel 05/07/2021 [facility] [address] [place] [address] [phone] iSTAT HCT 33.0 % Low 38.0-51.0 iSTAT Glucose 89 mg/dL Normal 70-105 iSTAT Sodium 140 mEq/L Normal 136-145 iSTAT Potassium 3.9 mEq/L Normal 3.5-5.1 iSTAT CA++ 4.2 mg/dL Low 4.5-5.3 iSTAT Chloride 100 mEq/L Normal 98-109 iSTAT Co2 24.0 MM/L Normal 23.0-27.0 iSTAT BUN 41 mg/dL High 8-26 iSTAT Creatinine 4.4 mg/dL High 0.6-1.3 CBC With Differential 05/07/2021 [place] [address] [place], [place] [id number] [phone] White Blood Count 6.9 10 Normal 4.0-10.0 Red Blood Count 3.49 10 Low 4.30-6.10 Hemoglobin 11.0 g/dL Low 13.5-17.5 Hematocrit 34.2 % Low 42.0-52.0 Mean Corpuscular Volume 98.0 fl High 80.0-96.0 Mean Corpuscular Hemoglobin 31.5 pg Normal 27.0-33.0 Mean Corpuscular HGB Conc 32.2 g/dL Normal 32.0-36.5 Red Cell Distribution Width 13.3 % Normal 11.5-14.5 Platelet Count, Automated 108 10 Low 150-450 Neutrophils % 82.7 % High 36.0-66.0 Lymph % 5.7 % Low 24.0-44.0 [place] % 5.1 % Normal 2.0-8.0 Eos % 3.6 % High 0.0-3.0 Baso % 0.3 % Normal 0.0-1.0 Immature Granulocyte % 2.6 % Normal 0-3.0 Nucleated Red Blood Cell % 0.0 % Normal 0-0 Neutrophils # 5.7 10 Normal 1.5-8.5 Lymph # 0.4 10 Low 1.5-5.0 [place] # 0.4 10 Normal 0.0-0.8 Eos # 0.3 10 Normal 0.0-0.5 Baso # 0.0 10 Normal 0.0-0.2 Laboratory test finding 05/07/2021 [facility] [address] [place] [address] [phone] Ammonia < 10 uMOL/L Normal <32 Liver Profile 05/07/2021 [facility] [address] [place] [address] [phone] Ast/Sgot 70 U/L High 7-37 Alt/SGPT 69 U/L Normal 12-78 Alkaline Phosphatase 84 U/L Normal 45-117 Bilirubin,Total 0.5 mg/dL Normal 0.2-1.0 Bilirubin,Direct 0.2 mg/dL Normal 0.0-0.2 Total Protein 5.3 GM/DL Low 6.4-8.2 Albumin 2.4 GM/DL Low 3.2-5.2 Albumin/Globulin Ratio 0.8 Normal Basic Metabolic Profile 05/07/2021 [facility] [address] [place] [address] [phone] Glucose, Fasting 90 mg/dL Normal 70-100 Blood Urea Nitrogen 41 mg/dL High 7-18 Creatinine For GFR 4.06 mg/dL High 0.70-1.30 Glomerular Filtration Rate 15.3 Low >42 1 9 Sodium Level 140 mEq/L Normal 136-145 Potassium Serum 3.9 mEq/L Normal 3.5-5.1 Chloride Level 106 mEq/L Normal 98-107 Carbon Dioxide Level 27 mEq/L Normal 21-32 Anion Gap 7 mEq/L Low 8-16 Calcium Level 7.4 mg/dL Low 8.8-10.2 Laboratory test finding 05/07/2021 [facility] [address] [place] [address] [phone] Thyroid Stimulating Hormone 0.505 uIU/ML Normal 0. 358-3.740 Influenza A/B RSV Covid Amp 05/07/2021 [facility] [address] [place] [address] [phone] Influenza A Amplification NEGATIVE Normal Negati ve 20 Influenza B Amplification NEGATIVE Normal Negative 21 RSV Amplification NEGATIVE Normal Negative 22 Sars Covid-19 Amplification NEGATIVE Normal Negative 23 Cardiac Marker Panel 04/27/2021 [facility] [address] [place] [address] [phone] CPK Creatine Phosphokinase 850 U/L High 39-30 8 CK-MB Value Mass 7.7 NG/ML High <3.6 MB/CK Relative Index 0.91 Normal < Or =4 24 Troponin I 1.15 NG/ML High < 0.10 25 Complete Blood Count 04/01/2021 [facility] [address] [place], [place] [id number] [phone] White Blood Count 9.4 10 Normal 4.0-10.0 Red Blood Count 3.76 10 Low 4.30-6.10 Hemoglobin 11.9 g/dL Low 13.5-17.5 Hematocrit 37.1 % Low 42.0-52.0 Mean Corpuscular Volume 98.7 fl High 80.0-96.0 Mean Corpuscular Hemoglobin 31.6 pg Normal 27.0-33.0 Mean Corpuscular HGB Conc 32.1 g/dL Normal 32.0-36.5 Red Cell Distribution Width 12.9 % Normal 11.5-14.5 Platelet Count, Automated 193 10 Normal 150-450 Nucleated Red Blood Cell % 0.0 % Normal 0-0 Prothrombin Time/Inr 04/01/2021 [facility] [address] [place], [place] [id number] [phone] Prothrombin Time 13.7 seconds Normal 12.5-14.3 Inr 1.03 Normal 26 1 Lab Result Notes: Pre-Diabetes 5.7 - 6.4 % Diabetes = or > 6.5% 2 100-125 mg/dL PRE-DIABET ES/FASTING >126 mg/dL DIABETES/FASTING 3 NOTE: BUN,CREAT VERIFIED 4 CHRONIC KIDNEY DISEASE STAGI NG PER NKF STAGE I & II GFR >= 60 NORMAL TO MILDLY DECREASED STAGE III GFR 30-59 MODERATELY DECREASED STAGE IV GFR 15-29 SEVERELY DECREASED STAGE V GFR <15 VERY LITTLE GFR LEFT ESRD GFR <15 ON SWITCH MAKER 5 NOTE: CBC VERIFIED 6 CRITICAL: CBC VERIFIED 7 100-125 mg/dL PRE-DIABET ES/FASTING >126 mg/dL DIABETES/FASTING 8 NOTE: BUN,CREAT VERIFIED 9 CHRONIC KIDNEY DISEASE STAGI NG PER NKF STAGE I & II GFR >= 60 NORMAL TO MILDLY DECREASED STAGE III GFR 30-59 MODERATELY DECREASED STAGE IV GFR 15-29 SEVERELY DECREASED STAGE V GFR <15 VERY LITTLE GFR LEFT ESRD GFR <15 ON SWITCH MAKER 10 Units are mL/min/1.73 m2 Chronic Kidney Disease Staging per NKF: Stage I & II GFR >=60 Normal to Mildly Decreased Stage III GFR 30-59 Moderately Decreased Stage IV GFR 15-29 Severely Decreased Stage V GFR <15 Very Little GFR Left ESRD GFR <15 on SWITCH MAKER 11 DIAGNOSIS CRITERIA MMB ng/ml Relative Index (RI) NON-AMI < or = 5 N/A [place]ONE > 5 < or = 4 AMI > 5 > 4 12 Troponin I Reference Interva l for [employer] [place] LOCI: 99th Percentile= 0.00-0.045 ng/ml Risk Stratification: <= 0.10 ng/ml Decreased Risk for Adverse Clinical Events. 0.10-1.50 ng/ml Increased Risk for Adv erse Clinical Events. Evaluation of additional criterion and/or repeat testing in 2-6 hours is suggested to rule out myocardial damage. >= 1.50 ng/ml Indicative of Myocardial Injury. 13 Negative results do not prec lude influenza or RSV virus infection and should not be used as the sole basis for treatment or other patient management decisions. 14 Negative results do not prec lude influenza or RSV virus infection and should not be used as the sole basis for treatment or other patient management decisions. 15 Negative results do not prec lude influenza or RSV virus infection and should not be used as the sole basis for treatment or other patient management decisions. 16 A false negative result may occur if a specimen is improperly collected, transported or handled. False negative results may also occur if inadequate numbers of organisms are present in the specimen. As with any molecular test, mutations within the target regions of Xpert Xpress SARS-CoV-2 could affect primer and/or probe binding resulting in failure to detect the presence of virus. This test cannot rule out diseases caused by other bacterial or viral pathogens. DISCLAIMER: Testing was performed using the [employer] SARS-CoV-2 test. This test was developed and its performance characteristics determined by [employer]. This test has not been FDA cleared or approved. This test has been authorized by FDA under an Emergency Use Authorization (EUA). This test is only authorized for the duration of time the declaration that circumstances exist justifying the authorization of the emergency use of in vitro diagnostic tests for detection of SARS-CoV-2 virus and/or diagnosis of COVID-19 infection under section 564(b)(1) of the Act, 21 U.S.C. 360bbb-3(b)(1), unless the authorization is terminated or revoked sooner. 17 DIAGNOSIS CRITERIA MMB ng/ml Relative Index (RI) NON-AMI < or = 5 N/A [place]ONE > 5 < or = 4 AMI > 5 > 4 18 Troponin I Reference Interva l for [employer] [place] LOCI: 99th Percentile= 0.00-0.045 ng/ml Risk Stratification: <= 0.10 ng/ml Decreased Risk for Adverse Clinical Events. 0.10-1.50 ng/ml Increased Risk for Adv erse Clinical Events. Evaluation of additional criterion and/or repeat testing in 2-6 hours is suggested to rule out myocardial damage. >= 1.50 ng/ml Indicative of Myocardial Injury. 19 Units are mL/min/1.73 m2 Chronic Kidney Disease Staging per NKF: Stage I & II GFR >=60 Normal to Mildly Decreased Stage III GFR 30-59 Moderately Decreased Stage IV GFR 15-29 Severely Decreased Stage V GFR <15 Very Little GFR Left ESRD GFR <15 on SWITCH MAKER 20 Negative results do not prec lude influenza or RSV virus infection and should not be used as the sole basis for treatment or other patient management decisions. 21 Negative results do not prec lude influenza or RSV virus infection and should not be used as the sole basis for treatment or other patient management decisions. 22 Negative results do not prec lude influenza or RSV virus infection and should not be used as the sole basis for treatment or other patient management decisions. 23 A false negative result may occur if a specimen is improperly collected, transported or handled. False negative results may also occur if inadequate numbers of organisms are present in the specimen. As with any molecular test, mutations within the target regions of Xpert Xpress SARS-CoV-2 could affect primer and/or probe binding resulting in failure to detect the presence of virus. This test cannot rule out diseases caused by other bacterial or viral pathogens. DISCLAIMER: Testing was performed using the Hand[employer] SARS-CoV-2 test. This test was developed and its performance characteristics determined by [employer]. This test has not been FDA cleared or approved. This test has been authorized by FDA under an Emergency Use Authorization (EUA). This test is only authorized for the duration of time the declaration that circumstances exist justifying the authorization of the emergency use of in vitro diagnostic tests for detection of SARS-CoV-2 virus and/or diagnosis of COVID-19 infection under section 564(b)(1) of the Act, 21 U.S.C. 360bbb-3(b)(1), unless the authorization is terminated or revoked sooner. 24 DIAGNOSIS CRITERIA MMB ng/ml Relative Index (RI) NON-AMI < or = 5 N/A [place] > 5 < or = 4 AMI > 5 > 4 25 Troponin I Reference Interva l for [employer] [place] LOCI: 99th Percentile= 0.00-0.045 ng/ml Risk Stratification: <= 0.10 ng/ml Decreased Risk for Adverse Clinical Events. 0.10-1.50 ng/ml Increased Risk for Adv erse Clinical Events. Evaluation of additional criterion and/or repeat testing in 2-6 hours is suggested to rule out myocardial damage. >= 1.50 ng/ml Indicative of Myocardial Injury. 26 THERAPUTIC HUMAN INR VALUES INDICATIONS NORMAL RANGES PROPHYLAXIS/TREATMENT OF: VENOUS THROMBOSIS 2.0-3.0 PULMONARY EMBOLISM 2.0-3.0 PREVENTION OF SYSTEMIC EMBOLISM FROM: TISSUE HEART VALVES 2.0-3.0 ACUTE MYOCARDIAL INFARCTION 2.0-3.0 VALVULAR HEART DISEASE 2.0-3.0 ATRIAL FIBRILLATION 2.0-3.0 MECHANICAL VALVES(HIGH RISK) 2.5-3.5 RECURRENT MYOCARDIAL INFARCTION 2.5-3.5 Procedures Date Code Description Status 08/03/2021 66396 Office/Outpatient Established Lo w MDM 20-29 Min Completed 07/03/2021 98369 Office/Outpatient Established Mo d MDM 30-39 Min Completed 06/17/2021 35162 Office/Outpatient Established Mo d MDM 30-39 Min Completed 07/18/2018 [id number] Diabetic Retinal Eye Exam [facility] 01/25/2017 [id number] Diabetic Foot Exam Completed 01/21/2017 [id number] Diabetic Foot Exam Completed 04/14/2006 [id number] Bone Mineral Density Test Comple [facility] Medical Devices Description No Information Available Encounters Type Date Location Provider Dx Diagnosis Office Visit 08/03/2021 2:40p [facility]CWILVER Peacock JR N18.6 End stage renal disease Z99.2 Dependence on renal dialysis F43.21 Adjustment disorder with dep ressed mood E11.40 Type 2 diabetes mellitus wit h diabetic neuropathy, unsp R26.89 Other abnormalities of gait and mobility Office Visit 07/03/2021 2:00p [facility] Sandoval M.D. E78.00 Pure hypercholesterolemia, unspecified E11.40 Type 2 diabetes mellitus wit h diabetic neuropathy, unsp E03.9 Hypothyroidism, unspecified R26.89 Other abnormalities of gait and mobility N18.6 End stage renal disease Z99.2 Dependence on renal dialysis Office Visit 06/17/2021 10:20a [facility] Marvin Pérez JR PA R26.89 Other abnormalities of gait and mobility N17.9 Acute kidney failure, unspec ified I12.9 Hypertensive chronic kidney disease w stg 1-4/unsp chr kdny N18.4 Chronic kidney disease, stag e 4 (severe) I73.9 Peripheral vascular disease, unspecified I48.91 Unspecified atrial fibrillat ion I48.92 Unspecified atrial flutter Z79.01 [facility] (current) use of a nticoagulants E11.40 Type 2 diabetes mellitus wit h diabetic neuropathy, unsp I25.10 Athscl heart disease of gale ve coronary artery w/o ang pctrs E03.9 Hypothyroidism, unspecified D64.9 Anemia, unspecified J44.9 Chronic obstructive pulmonar y disease, unspecified Assessments Date Code Description Provider 08/03/2021 N18.6 End stage renal disease WILVER Nunez JR 08/03/2021 Z99.2 Dependence on renal dialysis WILVER Parmar JR 08/03/2021 F43.21 Adjustment disorder with depress ed mood WILVER Nunez JR 08/03/2021 E11.40 Type 2 diabetes kaye itus with diabetic neuropathy, unspecified WILVER Nunez JR 08/03/2021 R26.89 Other abnormalities of gait and mobility WILVER Nunez JR 07/03/2021 E78.00 Pure hypercholesterolemia, unspe cified Eduardo Sandoval M.D. 07/03/2021 E11.40 Type 2 diabetes kaye itus with diabetic neuropathy, unspecified Eduardo Sandoval M.D. 07/03/2021 E03.9 Hypothyroidism, unspecified Robby Sandoval M.D. 07/03/2021 R26.89 Other abnormalities of gait and mobility Eduardo Sandoval M.D. 07/03/2021 N18.6 End stage renal disease Eduardo Sandoval M.D. 07/03/2021 Z99.2 Dependence on renal dialysis Patrick Sandoval M.D. 07/01/2021 D64.9 Anemia, unspecified Eduardo mohamud M.D. 07/01/2021 D64.9 Anemia, unspecified Eduardo mohamud M.D. 07/01/2021 E11.40 Type 2 diabetes kaye itus with diabetic neuropathy, unspecified Eduardo Sandoval M.D. 07/01/2021 D64.9 Anemia, unspecified Lab Schedule 07/01/2021 E03.9 Hypothyroidism, unspecified Robby Sandoval M.D. 07/01/2021 E11.40 Type 2 diabetes kaye itus with diabetic neuropathy, unspecified Eduardo Sandoval M.D. 07/01/2021 E11.40 Type 2 diabetes kaye itus with diabetic neuropathy, unspecified Lab Schedule 07/01/2021 E78.00 Pure hypercholesterolemia, unspe cified Eduardo Sandoval M.D. 07/01/2021 E78.00 Pure hypercholesterolemia, unspe cified Lab Schedule 07/01/2021 E03.9 Hypothyroidism, unspecified Robby Sandoval M.D. 07/01/2021 E03.9 Hypothyroidism, unspecified Lab Schedule 06/17/2021 R26.89 Other abnormalities of gait and mobility WILVER Nunez JR 06/17/2021 N17.9 Acute kidney failure, unspecifie d WILVER Nunez JR 06/17/2021 I12.9 Hypertensive chronic kidney disease with stage 1 through stage 4 chronic kidney disease, or unspecified chronic kidney disease WILVER Nunez JR 06/17/2021 N18.4 Chronic kidney disease, stage 4 (severe) WILVRE Nunez JR 06/17/2021 I73.9 Peripheral vascular disease, uns pecified WILVER Nunez JR 06/17/2021 I48.91 Unspecified atrial fibrillation WILVER Nunez JR 06/17/2021 I48.92 Unspecified atrial flutter WILVER Nava JR 06/17/2021 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 at [facility] * 11/09/2021 1:00 pm - Lab Schedule at [facility] * 11/11/2021 1:00 pm - Eduardo Sandoval M.D. at [facility] 07/03/2021 - Eduardo Sandoval M.D.* E78.00 Pure hypercholesterolemia, unspecified * E11.40 Type 2 diabetes mellitus with diabetic neuropathy, unsp * E03.9 Hypothyroidism, unspecified * R26.89 Other abnormalities of gait and mobility * N18.6 End stage renal disease * Z99.2 Dependence on renal dialysis * * Comments:* 1. Hypercholesterolemia: Good results with atorvastatin daily, will continue and monitor.2. Type 2 diabetes mellitus with diabetic neuropathy: Controlled with HgbA1c of 5.5. His neuropathy is generally stable. Continue present regimen. We will continue to monitor. 3. Hypothyroidism: Normal TSH, continue on supplements.4. Other abnormalities of gait and mobility: Generally stable. We discussed fall precautions. He is following up with Neurology for lower extremity weakness. We will continue to monitor.5. End stage renal disease: Following with Nephrology and on daily steroids for IgA nephropathy. He was noted to have high WBC.6. Dependence on renal dialysis: Continue dialysis 3 times a week and follow up with Nephrology appropriately. We will monitor.Ongoing cares: Patient is going to see Dr. Rowley of Cardiology appropriately. I am going to see him again in 4 months with CBC, CMP and HgbA1c. If he has new problems or issues sooner he will let us know. Functional Status Description No Information Available Mental Status Description No Information Available Referrals Description No Information Available
--- OUTSIDE RECORDS SUMMARY | 2021-09-03 11:53 | CCD | Continuity of Care Document ---
Author Organization Unknown Address Unknown Phone Unavailable Care Team Providers Care [facility] Wellness Coordinator Name Role Phone Eduardo Sandoval MD AUTM [phone] [facility] [phone] Problems Active Problems Provider Date Chronic diastolic heart failure Kimberly Noble D.O. O nset: 07/16/2011 Coronary arteriosclerosis Kimberly Noble D.O. [...] DAY Allergies, Adverse Reactions, Alerts Active Allergies Reaction Severity Comments Date Effexor 09/22/2010 Pradaxa,Coumadin hemothorax,rash 12/28/19 12 Proscar generic filler or dye 2016 Medications Active Medications SIG Qnty Indications Ordering [...] by mouth twice a day Gail SkinnerO. Prednisone 10mg Tablets 4 by mouth daily for 3 days then 3 daily for 3 days then 2 daily for 3 days then 1 daily for 3 days and stop. 31tabs WILVER Nunez JR 021 Vitamin B-1 100mg Tablets take one capsule [...] 88mcg Tablets 1 by mouth every day 90takatie Sandoval M.D. 08/02/2016 Medications Administered in Office Medication SIG Qnty Indications Ordering Provider Date Immunization Adminstration,1 Vaccine/Tox oid Injection Eduardo Sandoval M.D. 020 Depo-Medrol Injection Injection Gail SkinnerOCampos 04/07/2006 Immunizations CPT Code Status Date Vaccine Lot # [id number] Given 08/13/2020 Influenza Vaccin e Quadrivalent Preser/Antibiotic Free Im Use [id number] Given 03/13/2015 Prevnar 13 [id number] 02684 Given 04/21/2011 Pneumovax 23 15925 Given 09/05/2008 Influenza Virus Vaccine [id number] Refused 08/31/2017 Influenza Vaccin e Quadrivalent Preser/Antibiotic Free Im Use Vital Signs Date Vital Result Comment 07/03/2021 2:09pm BP Systolic 112 mmHg BP Diastolic 76 mmHg Heart Rate 80 /min Height 68 inches 5'8" Weight 157.00 lb BMI (Body Mass Index) 23.9 kg/m2 06/17/2021 10:24am BP Systolic 102 mmHg BP Diastolic 50 mmHg Heart Rate 62 /min Height 68 inches 5'8" Weight 157.00 lb BMI (Body Mass Index) 23.9 kg/m2 Results Test Acquired Date Facility Test Result H/L Range Note A1c 07/01/2021 [facility] Order Selector: [place] [address] [phone] Hba1c 5.5 % <5.7 1 Est Avg Glucose 111 mg/dL High 60 - 110 Comprehensive Chem Profile 07/01/2021 [facility] Order Selector: [place] [address] [phone] Glucose 104 mg/dL High 74 - 99 [...] mL/min Low >60 4 Lipid Profile 07/01/2021 [facility] Order Selector: [place] [address] [phone] Cholesterol 184 mg/dL 131 - 200 Triglycerides 146 mg/dL 30 - 150 HDL Cholesterol 80 mg/dL High 35 - 60 LDL (Calculated) 75 CALC 50 - 159 Laboratory test finding 07/01/2021 [facility] Order Selector: [place] [address] [phone] Thyroid Stimulating Hormone 0.88 uIU/mL 0.3 6 - 3.74 Complete Blood Count 07/01/2021 [facility] Order Selector: [place] [address] [phone] WBC 13.6 x10*3/UL High 4.1 - 10.9 [...] 2.0 - 7.8 Complete Blood Count 06/17/2021 [facility] Order Selector: [place] [address] [phone] WBC 11.2 x10*3/UL High 4.1 - 10.9 [...] 2.0 - 7.8 Basic Metabolic Panel 06/17/2021 [facility] Order Selector: Dr Laith Silveira [place] [id number] [phone] Glucose 149 mg/dL High 74 - 99 [...] Low >60 9 Laboratory test finding 06/17/2021 [facility] Order Selector: [place] [address] [phone] Thyroid Stimulating Hormone 2.97 uIU/mL 0.3 6 - 3.74 Laboratory test finding 05/22/2021 [place] [id number] [phone] Thyroid Stimulating Hormone 1.940 uIU/ML Normal 0. 358-3.740 Free T4 0.90 ng/dL Normal 0.76-1.46 Laboratory test finding 05/22/2021 [place] 2206351 [phone] Platelet Estimate DECREASED Normal Normal Differential 05/22/2021 [facility] [address] [place] [address] [phone] Neutrophils 64 % Normal 28-66 Bands 12 % High < 11 Lymphocytes 11 % Low 16-44 Monocytes 9 % High 0-5 Basophils 1 % Normal 0-1 Metamyelocytes 1 % High 0-0 Myelocytes 2 % High 0-0 CBC With Differential 05/22/[address] [id number] [phone] White Blood Count 8.4 10 Normal 4.0-10.0 [...] % High 0-0 Basic Metabolic Profile 05/22/2021 [facility] [address] [place] [address] [phone] Glucose, Fasting 94 mg/dL Normal 70-100 Blood [...] 7.9 mg/dL Low 8.8-10.2 Liver Profile 05/22/2021 [facility] [address] [place] [address] [phone] Ast/Sgot 29 U/L Normal 7-37 Alt/SGPT 53 U/L Normal 12-78 Alkaline Phosphatase 131 U/L High 45-117 Bilirubin,Total 0.4 mg/dL Normal 0.2-1.0 Bilirubin,Direct 0.2 mg/dL Normal 0.0-0.2 Total Protein 5.8 GM/DL Low 6.4-8.2 Albumin 2.6 GM/DL Low 3.2-5.2 Albumin/Globulin Ratio 0.8 Normal Cardiac Marker Panel 05/22/2021 [facility] [address] [place] [address] [phone] CPK Creatine Phosphokinase 58 U/L Normal 39-30 8 CK-MB Value Mass 3.1 NG/ML Normal <3.6 MB/CK Relative Index 5.34 High < Or =4 11 Troponin I 0.14 NG/ML High < 0.10 12 Influenza A/B RSV Covid Amp 05/22/2021 [facility] [address] [place] [address] [phone] Influenza A Amplification NEGATIVE Normal Negati ve 13 Influenza B Amplification NEGATIVE Normal Negative 14 RSV Amplification NEGATIVE Normal Negative 15 Sars Covid-19 Amplification NEGATIVE Normal Negative 16 Laboratory test finding 05/22/2021 [facility] [address] [place] [address] [phone] C Reactive Protein Quantitativ 10.10 mg/dL High 0.00-0.30 Cardiac Marker Panel 05/22/2021 [facility] [address] [place] [address] [phone] CPK Creatine Phosphokinase 55 U/L Normal 39-30 8 CK-MB Value Mass 3.2 NG/ML Normal <3.6 MB/CK Relative Index 5.82 High < Or =4 17 Troponin I 0.13 NG/ML High < 0.10 18 Laboratory test finding 05/07/2021 [facility] [address] [place] [address] [phone] iSTAT Troponin 0.10 NG/ML High 0.00-0.08 Istat Chem8+ Panel 05/07/2021 [facility] [address] [place] [address] [phone] iSTAT HCT 33.0 % Low 38.0-51.0 iSTAT Glucose 89 mg/dL Normal 70-105 iSTAT Sodium 140 mEq/L Normal 136-145 iSTAT Potassium 3.9 mEq/L Normal 3.5-5.1 iSTAT CA++ 4.2 mg/dL Low 4.5-5.3 iSTAT Chloride 100 mEq/L Normal 98-109 iSTAT Co2 24.0 MM/L Normal 23.0-27.0 iSTAT BUN 41 mg/dL High 8-26 iSTAT Creatinine 4.4 mg/dL High 0.6-1.3 CBC With Differential 05/07/2021 [facility] [address] [place] [address] [phone] White Blood Count 6.9 10 Normal 4.0-10.0 [...] 36.0-66.0 Lymph % 5.7 % Low 24.0-44.0 [place] % 5.1 % Normal 2.0-8.0 Eos % 3.6 % High 0.0-3.0 Baso % 0.3 % Normal 0.0-1.0 Immature Granulocyte % 2.6 % Normal 0-3.0 Nucleated Red Blood Cell % 0.0 % Normal 0-0 Neutrophils # 5.7 10 Normal 1.5-8.5 Lymph # 0.4 10 Low 1.5-5.0 Mingo # 0.4 10 Normal 0.0-0.8 Eos # 0.3 10 Normal 0.0-0.5 Baso # 0.0 10 Normal 0.0-0.2 Laboratory test finding 05/07/2021 [facility] [address] [place] [address] [phone] Ammonia < 10 uMOL/L Normal <32 Liver Profile 05/07/2021 [facility] [address] [place] [address] [phone] Ast/Sgot 70 U/L High 7-37 Alt/SGPT 69 U/L Normal 12-78 Alkaline Phosphatase 84 U/L Normal 45-117 Bilirubin,Total 0.5 mg/dL Normal 0.2-1.0 Bilirubin,Direct 0.2 mg/dL Normal 0.0-0.2 Total Protein 5.3 GM/DL Low 6.4-8.2 Albumin 2.4 GM/DL Low 3.2-5.2 Albumin/Globulin Ratio 0.8 Normal Basic Metabolic Profile 05/07/2021 [place] [id number] [phone] Glucose, Fasting 90 mg/dL Normal 70-100 Blood [...] mg/dL Low 8.8-10.2 Laboratory test finding 05/07/2021 [place] 2206304 [phone] Thyroid Stimulating Hormone 0.505 uIU/ML Normal 0. 358-3.740 Influenza A/B RSV Covid Amp 05/07/[address] [address] [phone] Influenza A Amplification NEGATIVE Normal Negati ve 20 Influenza B Amplification NEGATIVE Normal Negative 21 RSV Amplification NEGATIVE Normal Negative 22 Sars Covid-19 Amplification NEGATIVE Normal Negative 23 Cardiac Marker Panel 04/27/2021 [facility] [address] [place], [place] [address] [phone] CPK Creatine Phosphokinase 850 U/L High 39-30 8 CK-MB Value Mass 7.7 NG/ML High <3.6 MB/CK Relative Index 0.91 Normal < Or =4 24 Troponin I 1.15 NG/ML High < 0.10 25 Complete Blood Count 04/01/2021 [facility] [address] [place] [address] [phone] White Blood Count 9.4 10 Normal 4.0-10.0 [...] 0.0 % Normal 0-0 Prothrombin Time/Inr 04/01/2021 [facility] [address] [place] [id number] [phone] Prothrombin Time 13.7 seconds Normal 12.5-14.3 Inr [...] LITTLE GFR LEFT ESRD GFR <15 ON METALLURGICAL ENGINEER 5 NOTE: CBC VERIFIED 6 CRITICAL: CBC VERIFIED 7 100-125 mg/dL PRE-DIABET ES/FASTING >126 mg/dL DIABETES/FASTING 8 NOTE: BUN,CREAT VERIFIED 9 CHRONIC KIDNEY DISEASE STAGI NG PER NKF STAGE I & II GFR >= 60 NORMAL TO MILDLY DECREASED STAGE III GFR 30-59 MODERATELY DECREASED STAGE IV GFR 15-29 SEVERELY DECREASED STAGE V GFR <15 VERY LITTLE GFR LEFT ESRD GFR <15 ON METALLURGICAL ENGINEER 10 Units are mL/min/1.73 m2 Chronic Kidney Disease Staging per NKF: Stage I & II GFR >=60 Normal to Mildly Decreased Stage III GFR 30-59 Moderately Decreased Stage IV GFR 15-29 Severely Decreased Stage V GFR <15 Very Little GFR Left ESRD GFR <15 on METALLURGICAL ENGINEER 11 DIAGNOSIS CRITERIA MMB ng/ml Relative Index (RI) NON-AMI < or = 5 N/A [place] ZONE > 5 < or = 4 AMI > 5 > 4 12 Troponin I Reference Interva l for [employer] LOCI: 99th Percentile= 0.00-0.045 ng/ml Risk Stratification: [...] pathogens. DISCLAIMER: Testing was performed using the [employer] SARS-CoV-2 test. This test was developed and its performance characteristics determined by [employer]. This test has not been FDA cleared [...] 18 Troponin I Reference Interva l for [employer] LOCI: 99th Percentile= 0.00-0.045 ng/ml Risk Stratification: [...] Little GFR Left ESRD GFR <15 on METALLURGICAL ENGINEER 20 Negative results do not prec lude [...] pathogens. DISCLAIMER: Testing was performed using the [employer] SARS-CoV-2 test. This test was developed and its performance characteristics determined by [employer]. This test has not been FDA cleared [...] Troponin I Reference Interva l for [employer] LOCI: 99th Percentile= 0.00-0.045 ng/ml Risk Stratification: [...] INFARCTION 2.5-3.5 Procedures Date Code Description Status 06/17/2021 24785 Office/Outpatient Established Mo d MDM 30-39 Min Completed 07/18/2018 [id number] Diabetic Retinal Eye Exam [facility] 01/25/2017 [id number] Diabetic Foot Exam Completed 01/21/2017 [id number] Diabetic Foot Exam Completed 04/14/2006 [id number] Bone Mineral Density Test [facility] Medical Devices Description No Information Available Encounters Type Date Location Provider Dx Diagnosis Office Visit 06/17/2021 10:20a [facility] [place] R26.89 Other abnormalities of gait and mobility N17.9 Acute kidney failure, unspec ified I12.9 Hypertensive chronic kidney disease w stg 1-4/unsp chr kdny N18.4 Chronic kidney disease, stag e 4 (severe) I73.9 Peripheral vascular disease, unspecified I48.91 Unspecified atrial fibrillat ion I48.92 Unspecified atrial flutter Z79.01 FDC (current) use of a nticoagulants E11.40 Type 2 diabetes mellitus wit h diabetic neuropathy, unsp I25.10 Athscl heart disease of g[place] ve coronary artery w/o ang pctrs E03.9 Hypothyroidism, unspecified D64.9 Anemia, unspecified J44.9 Chronic obstructive pulmonar y disease, unspecified Assessments Date Code Description Provider 07/03/2021 E78.00 Pure hypercholesterolemia, unspe cified Eduardo [...] Eduardo mohamud M.D. 07/01/2021 D64.9 Anemia, unspecified Lab Schedule 07/01/2021 E11.40 Type 2 diabetes kaye itus [...] N18.4 Chronic kidney disease, stage 4 (severe) WILVER Nunez JR 06/17/2021 I73.9 Peripheral vascular disease, uns pecified WILVER Nunez JR 06/17/2021 I48.91 Unspecified atrial fibrillation WILVER Nunez JR 06/17/2021 I48.92 Unspecified atrial flutter WILVER Nava JR 06/17/2021 Z79.01 FDC (current) use of antic oagulants WILVER Nunez JR 06/17/2021 E11.40 Type 2 diabetes kaye itus with diabetic neuropathy, unspecified WILVER Nunez JR 06/17/2021 I25.10 Atherosclerotic heart disease of [place] coronary artery with WILVER Nunez JR 06/17/2021 E03.9 Hypothyroidism, unspecified WILVER Latif JR 06/17/2021 D64.9 Anemia, unspecified WILVER Constantino JR 06/17/2021 J44.9 Chronic obstructive pulmonary di sease, unspecified WILVER Nunez JR Plan of Treatment No Information Available Functional Status Description No Information Available Mental Status Description No Information Available Referrals Description No Information Available
--- OUTSIDE RECORDS SUMMARY | 2021-09-03 11:53 | CCD | Continuity of Care Document ---
Author Author Raúl FERRIS DPMalissa Organization Unknown Address [address] [place] [address], [address] [place] [address] Phone [phone] Care Team Providers Care Clinical Asst Name Role Phone Eduardo Sandoval M.D.M [phone] Problems Active Problems Provider Date Hammer toe Satya Ferris DPM Onset: 01/25/2017 Onychomycosis Satya Ferris DPM Onset: 01/25/2017 Corns and callus Satya Ferris DPM Onset: 01/25/2017 Pain in limb Satya Ferris DPM Onset: 01/05/2021 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etes mellitus Satya Ferris DPM Onset: 01/05/2021 Social History Type Date Description Comments Sex Unknown ETOH Use Denies alcohol use Tobacco Use Start: Unknown End: Unknown Patient is a former smoker Tobacco Use Start: Unknown smoked for 50 years, quit 9 year s with 1 PPD habit Allergies, Adverse Reactions, Alerts Active Allergies Criticality Reaction | Severity Comments Date Effexor Unable to assess criticality 01/21/2017 Pradaxa Unable to assess criticality hemothorax, coumadin 01/21/2017 Coumadin Unable to assess criticality hemothorax, rash 01/21/2017 Medications Active Medications SIG Qnty Indications Ordering Provide r Date Betamethasone Dipropionate 0.05% C ream Apply To Rash On Feet & Legs Two Times A Day 45units And sabina Ferris DPM 07/10/2019 Caltrate 600+D [id number]-Bims Tablets Satya Ferris DPM 01/21/2017 Metoprolol Succinate ER 100mg Tablets ER 24HR Unknown Ciprofloxacin HCL 500mg Tablets Unknown Ketorolac Tromethamine 0.4% Solution Unknown Tobramycin 0.3% Solution Unknown Tamsulosin HCL 0.4mg Capsules Lori Dinh,Eduardo Neomycin/Polymyxin/Dexamethasone [id number] Ointment Apply A Small Amount Into Right Eye Four Times A Day Unknown Synthroid 88mcg Tablets Raoulpoly CASTANEDA M.D.,Laith Metoprolol Tartrate 100mg Tablets Unknown Finasteride 5mg Tablets Lori Dinh,Eduardo Amoxicillin/Clavulanate Potassium 875-125mg Tablets Take One Tablet By Mouth Twice A Day For 10 Days Unknown Xarelto Unknown Lovastatin Unknown Metformin HCL Unknown Aspir-81 Unknown Doxycycline Hyclate Unknown Metoprolol Succinate ER Unknown 0 Allopurinol Unknown Clotrimazole/Betamethasone Dipropionate Unknown Vicodin Unknown Levothyroxine Sodium Unknown Gabapentin Unknown Lotrimin AF Unknown Enalapril Maleate Unknown 000 Immunizations Description No Information Available Vital Signs Date Vital Result Comment 01/02/2021 2:45pm Height 68 inches 5'8" Weight 181.00 lb BP Systolic 128 mmHg BP Diastolic 66 mmHg Heart Rate 59 /min BMI (Body Mass Index) 27.5 kg/m2 12/06/2018 2:54pm Height 68 inches 5'8" Weight 178.00 lb BP Systolic 104 mmHg BP Diastolic 70 mmHg Heart Rate 58 /min BMI (Body Mass Index) 27.1 kg/m2 Results Description No Information Available Procedures Description No Information Available Medical Devices Description No Information Available Encounters Description No Information Available Assessments Description No Information Available Plan of Treatment Future Appointment(s):* 08/17/2021 1:30 pm - Satya Ferris DPM at [facility] Functional Status Description No Information Available Mental Status Description No Information Available Referrals Description No Information Available
--- OUTSIDE RECORDS SUMMARY | 2021-09-03 11:53 | CCD | Continuity of Care Document ---
Author Organization Unknown Address Unknown Phone Unavailable Care Team Providers Care Environmental Management Specialist Name Role Phone Eduardo Sandoval MD AUTM [phone] [facility] AUTM [phone] Problems Active Problems Provider Date Chronic diastolic [...] CPT Code Status Date Vaccine Lot # [id number] Given 08/13/2020 Influenza Vaccin e Quadrivalent Preser/Antibiotic Free Im Use [id number] 49062 Given 03/13/2015 Prevnar 13 [id number] Given 04/21/2011 Pneumovax 23 [id number] Given 09/05/2008 Influenza Virus Vaccine 73230 Refused 08/31/2017 Influenza Vaccin e Quadrivalent Preser/Antibiotic [...] Test Result H/L Range Note A1c 07/01/2021 [facility] R[facility] Urgent Care: [place] [address] [phone] Hba1c 5.5 % <5.7 1 Est Avg Glucose 111 mg/dL High 60 - 110 Comprehensive Chem Profile 07/01/2021 [facility] Ur[facility] Care: [place] [address] [phone] Glucose 104 mg/dL High 74 - 99 [...] mL/min Low >60 4 Lipid Profile 07/01/2021 [facility] Ur[facility] Care: [place] [address] [phone] Cholesterol 184 mg/dL 131 - 200 Triglycerides 146 mg/dL 30 - 150 HDL Cholesterol 80 mg/dL High 35 - 60 LDL (Calculated) 75 CALC 50 - 159 Laboratory test finding 07/01/2021 [facility] Rn Urgent Care: [place] [address] [phone] Thyroid Stimulating Hormone 0.88 uIU/mL 0.3 6 - 3.74 Complete Blood Count 07/01/2021 [facility] Care: [place] [address] [phone] WBC 13.6 x10*3/UL High 4.1 - 10.9 [...] 2.0 - 7.8 Complete Blood Count 06/17/2021 [facility]: [place] [address] [phone] WBC 11.2 x10*3/UL High 4.1 - 10.9 [...] 2.0 - 7.8 Basic Metabolic Panel 06/17/2021 [facility] Ur[facility] Care: Dr Laith Silveira [place] [id number] [phone] Glucose 149 mg/dL High 74 - 99 [...] Low >60 9 Laboratory test finding 06/17/2021 [facility] R[facility] Urgent Care: [place] [address] [phone] Thyroid Stimulating Hormone 2.97 uIU/mL 0.3 6 - 3.74 Laboratory test finding 05/22/2021 [place] [id number] [phone] Thyroid Stimulating Hormone 1.940 uIU/ML Normal 0. 358-3.740 Free T4 0.90 ng/dL Normal 0.76-1.46 Laboratory test finding 05/22/2021 [place] [id number] [phone] Platelet Estimate DECREASED Normal Normal Differential 05/22/2021 [facility] [address] [place] [address] [phone] Neutrophils 64 % Normal 28-66 Bands 12 % High < 11 Lymphocytes 11 % Low 16-44 Monocytes 9 % High 0-5 Basophils 1 % Normal 0-1 Metamyelocytes 1 % High 0-0 Myelocytes 2 % High 0-0 CBC With Differential 05/22/[address] [id number] [phone] White Blood Count 8.4 10 Normal 4.0-10.0 [...] % High 0-0 Basic Metabolic Profile 05/22/2021 [facility] [address] [place] [address] [phone] Glucose, Fasting 94 mg/dL Normal 70-100 Blood [...] 7.9 mg/dL Low 8.8-10.2 Liver Profile 05/22/2021 [facility] [address] [place] [address] [phone] Ast/Sgot 29 U/L Normal 7-37 Alt/SGPT 53 U/L Normal 12-78 Alkaline Phosphatase 131 U/L High 45-117 Bilirubin,Total 0.4 mg/dL Normal 0.2-1.0 Bilirubin,Direct 0.2 mg/dL Normal 0.0-0.2 Total Protein 5.8 GM/DL Low 6.4-8.2 Albumin 2.6 GM/DL Low 3.2-5.2 Albumin/Globulin Ratio 0.8 Normal Cardiac Marker Panel 05/22/2021 [facility] [address] [place] [address] [phone] CPK Creatine Phosphokinase 58 U/L Normal 39-30 8 CK-MB Value Mass 3.1 NG/ML Normal <3.6 MB/CK Relative Index 5.34 High < Or =4 11 Troponin I 0.14 NG/ML High < 0.10 12 Influenza A/B RSV Covid Amp 05/22/2021 [facility] [address] [place] [address] [phone] Influenza A Amplification NEGATIVE Normal Negati ve 13 Influenza B Amplification NEGATIVE Normal Negative 14 RSV Amplification NEGATIVE Normal Negative 15 Sars Covid-19 Amplification NEGATIVE Normal Negative 16 Laboratory test finding 05/22/2021 [facility] [address] [place] [address] [phone] C Reactive Protein Quantitativ 10.10 mg/dL High 0.00-0.30 Cardiac Marker Panel 05/22/2021 [facility] [address] [place] [address] [phone] CPK Creatine Phosphokinase 55 U/L Normal 39-30 8 CK-MB Value Mass 3.2 NG/ML Normal <3.6 MB/CK Relative Index 5.82 High < Or =4 17 Troponin I 0.13 NG/ML High < 0.10 18 Laboratory test finding 05/07/2021 [facility] [address] [place] [address] [phone] iSTAT Troponin 0.10 NG/ML High 0.00-0.08 Istat Chem8+ Panel 05/07/2021 [facility]ter [address] [place] [address] [phone] iSTAT HCT 33.0 % Low 38.0-51.0 iSTAT Glucose 89 mg/dL Normal 70-105 iSTAT Sodium 140 mEq/L Normal 136-145 iSTAT Potassium 3.9 mEq/L Normal 3.5-5.1 iSTAT CA++ 4.2 mg/dL Low 4.5-5.3 iSTAT Chloride 100 mEq/L Normal 98-109 iSTAT Co2 24.0 MM/L Normal 23.0-27.0 iSTAT BUN 41 mg/dL High 8-26 iSTAT Creatinine 4.4 mg/dL High 0.6-1.3 CBC With Differential 05/07/2021 [facility] [address] [place] [address] [phone] White Blood Count 6.9 10 Normal 4.0-10.0 [...] 36.0-66.0 Lymph % 5.7 % Low 24.0-44.0 Emmet % 5.1 % Normal 2.0-8.0 Eos % 3.6 % High 0.0-3.0 Baso % 0.3 % Normal 0.0-1.0 Immature Granulocyte % 2.6 % Normal 0-3.0 Nucleated Red Blood Cell % 0.0 % Normal 0-0 Neutrophils # 5.7 10 Normal 1.5-8.5 Lymph # 0.4 10 Low 1.5-5.0 Emmet # 0.4 10 Normal 0.0-0.8 Eos # 0.3 10 Normal 0.0-0.5 Baso # 0.0 10 Normal 0.0-0.2 Laboratory test finding 05/07/2021 [facility] [address] [place] [address] [phone] Ammonia < 10 uMOL/L Normal <32 Liver Profile 05/07/2021 [facility] [address] [place] [address] [phone] Ast/Sgot 70 U/L High 7-37 Alt/SGPT 69 U/L Normal 12-78 Alkaline Phosphatase 84 U/L Normal 45-117 Bilirubin,Total 0.5 mg/dL Normal 0.2-1.0 Bilirubin,Direct 0.2 mg/dL Normal 0.0-0.2 Total Protein 5.3 GM/DL Low 6.4-8.2 Albumin 2.4 GM/DL Low 3.2-5.2 Albumin/Globulin Ratio 0.8 Normal Basic Metabolic Profile 05/07/2021 [place] [id number] [phone] Glucose, Fasting 90 mg/dL Normal 70-100 Blood [...] mg/dL Low 8.8-10.2 Laboratory test finding 05/07/2021 [place] [address]190 [phone] Thyroid Stimulating Hormone 0.505 uIU/ML Normal 0. 358-3.740 Influenza A/B RSV Covid Amp 05/07/[address] [address] [phone] Influenza A Amplification NEGATIVE Normal Negati ve 20 Influenza B Amplification NEGATIVE Normal Negative 21 RSV Amplification NEGATIVE Normal Negative 22 Sars Covid-19 Amplification NEGATIVE Normal Negative 23 Cardiac Marker Panel 04/27/2021 [facility] [address] [place], [place] [address] [phone] CPK Creatine Phosphokinase 850 U/L High 39-30 8 CK-MB Value Mass 7.7 NG/ML High <3.6 MB/CK Relative Index 0.91 Normal < Or =4 24 Troponin I 1.15 NG/ML High < 0.10 25 Complete Blood Count 04/01/2021 [facility] [address] [place] [address] [phone] White Blood Count 9.4 10 Normal 4.0-10.0 [...] 0.0 % Normal 0-0 Prothrombin Time/Inr 04/01/2021 [facility] [address] [place] [id number] [phone] Prothrombin Time 13.7 seconds Normal 12.5-14.3 Inr [...] LITTLE GFR LEFT ESRD GFR <15 ON [employer]ILE[employer] OPERATOR 5 NOTE: CBC VERIFIED 6 CRITICAL: CBC VERIFIED 7 100-125 mg/dL PRE-DIABET ES/FASTING >126 mg/dL DIABETES/FASTING 8 NOTE: BUN,CREAT VERIFIED 9 CHRONIC KIDNEY DISEASE STAGI NG PER NKF STAGE I & II GFR >= 60 NORMAL TO MILDLY DECREASED STAGE III GFR 30-59 MODERATELY DECREASED STAGE IV GFR 15-29 SEVERELY DECREASED STAGE V GFR <15 VERY LITTLE GFR LEFT ESRD GFR <15 ON [employer]ILE[employer] OPERATOR 10 Units are mL/min/1.73 m2 Chronic Kidney Disease Staging per NKF: Stage I & II GFR >=60 Normal to Mildly Decreased Stage III GFR 30-59 Moderately Decreased Stage IV GFR 15-29 Severely Decreased Stage V GFR <15 Very Little GFR Left ESRD GFR <15 on [employer]ILEVER [employer]ANE OPERATOR 11 DIAGNOSIS CRITERIA MMB ng/ml Relative Index (RI) NON-AMI < or = 5 N/A [place] ZONE > 5 < or = 4 AMI > 5 > 4 12 Troponin I Reference Interva l for [employer] LOCI: 99th Percentile= 0.00-0.045 ng/ml Risk Stratification: [...] pathogens. DISCLAIMER: Testing was performed using the [employer] SARS-CoV-2 test. This test was developed and its performance characteristics determined by [employer]. 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 DISCLAIMER: Testing was performed using the [employer] SARS-CoV-2 test. This test was developed and its performance characteristics determined by [employer]. This test has not been FDA cleared [...] Troponin I Reference Interva l for [employer] LOCI: 99th Percentile= 0.00-0.045 ng/ml Risk Stratification: [...] 2.5-3.5 Procedures Date Code Description Status 06/17/2021 13507 Office/Outpatient Established Mo d MDM 30-39 Min Completed 07/18/2018 713740710 Diabetic Retinal Eye Exam [facility] 01/25/2017 [id number] Diabetic Foot Exam Completed 01/21/2017 [id number] Diabetic Foot Exam Completed 04/14/2006 [id number] Bone Mineral Density Test [facility] Medical Devices Description No Information Available Encounters Type Date Location Provider Dx Diagnosis Office Visit 06/17/2021 10:20a [facility] [place] R26.89 Other abnormalities of gait and mobility N17.9 Acute kidney failure, unspec ified I12.9 Hypertensive chronic kidney disease w stg 1-4/unsp chr kdny N18.4 Chronic kidney disease, stag e 4 (severe) I73.9 Peripheral vascular disease, unspecified I48.91 Unspecified atrial fibrillat ion I48.92 Unspecified atrial flutter Z79.01 longterm (current) use of a nticoagulants E11.40 Type [...] atrial flutter WILVER Nava JR 06/17/2021 Z79.01 longterm (current) use of antic oagulants WILVER Nunez JR 06/17/2021 E11.40 Type 2 diabetes kaye itus with diabetic neuropathy, unspecified WILVER Nunez JR 06/17/2021 I25.10 Atherosclerotic heart disease of [place] coronary artery with WILVER Nunez JR 06/17/2021 E03.9 Hypothyroidism, unspecified WILVER Latif JR 06/17/2021 D64.9 Anemia, unspecified WILVER Constantino JR 06/17/2021 J44.9 Chronic obstructive pulmonary di sease, unspecified WILVER Nunez JR Plan of Treatment No Information Available Functional Status Description No Information Available Mental Status Description No Information Available Referrals Description No Information Available
--- OUTSIDE RECORDS SUMMARY | 2021-09-03 11:53 | CCD | Continuity of Care Document ---
Author Author Raúl FERRIS DPMalissa Organization Unknown Address [address] [place] [address], [address] [place] [address] Phone [phone] Care Team Providers Care Citrus Peeler Name Role Phone Eduardo Sandoval M.D.M [phone] Problems Active Problems Provider Date Hammer toe [...] And sabina Ferris DPM 07/10/2019 Caltrate 600+D [id number] Tablets Satya Ferris DPM 01/21/2017 Metoprolol Succinate ER 100mg Tablets ER 24HR Unknown Ciprofloxacin HCL 500mg Tablets Unknown Ketorolac Tromethamine 0.4% Solution Unknown Tobramycin 0.3% Solution Unknown Tamsulosin HCL 0.4mg Capsules Lori Dinh,Eduardo Neomycin/Polymyxin/Dexamethasone 3.5-12244-7.1 Ointment Apply A Small Amount Into Right [...] 1:30 pm - Satya Ferris DPM at [facility] Functional Status Description No Information Available Mental Status Description No Information Available Referrals Description No Information Available
--- OUTSIDE RECORDS SUMMARY | 2021-09-03 11:53 | CCD | Continuity of Care Document ---
Author Author Raúl FERRIS DPMalissa Organization Unknown Address [address] [place] [address], [address] [place] [address] Phone [phone] Care Team Providers Care Import Clerk Name Role Phone Eduardo Sandoval M.D.M [phone] Problems Active Problems Provider Date Hammer toe [...] 7 year s with 1 PPD habit Allergies and adverse reactions Active Allergies Criticality Reaction | Severity Comments [...] And sabina Ferris DPM 07/10/2019 Caltrate 600+D [id number] Tablets Satya Ferris DPM 01/21/2017 Metoprolol Succinate ER 100mg Tablets ER 24HR Unknown Ciprofloxacin HCL 500mg Tablets Unknown Ketorolac Tromethamine 0.4% Solution Unknown Tobramycin 0.3% Solution Unknown Tamsulosin HCL 0.4mg Capsules Lori Dinh,Eduardo Neomycin/Polymyxin/Dexamethasone 3.5-05694-0.1 Ointment Apply A Small Amount Into Right Eye Four Times A Day Unknown Synthroid 88mcg Tablets [place] CASTANEDA M.D.,Laith Metoprolol Tartrate 100mg Tablets Unknown [...] kg/m2 Results Description No Information Available Procedures Date Code Description Status 08/03/2021 17336 Debridement 6-10 Nails Electric Completed 08/03/2021 10951 Debridement Skin/Tissue Complete d Medical Devices Description No Information Available Encounters Description No Information Available Assessments Date Code Description Provider 08/03/2021 E11.621 Type 2 diabetes mellitus with fo ot ulcer Satya Ferris, ISH 08/03/2021 L89.892 Pressure ulcer of other site, st age 1 Satya Ferris DPM 08/03/2021 B35.1 Tinea unguium Satya Ferris DPM 08/03/2021 E11.42 Type 2 diabetes mellitus with di abetic polyneuropathy Satya Ferris DPM Plan of Treatment No Information Available Functional Status Description No Information Available Mental Status Description No Information Available Referrals Description No Information Available
--- OUTSIDE RECORDS SUMMARY | 2021-09-03 11:53 | CCD | Continuity of Care Document ---
Author Author Raúl BURCIAGA M.D. Organization Unknown Address [address] [facility] [address] [place] [address] Phone [phone] Care Team Providers Care Mixing House Operator Name Role Phone Eduardo Burciaga MD AUTM [phone] [facility] Hea AUTM [phone] Problems Active Problems Provider Date Chronic diastolic [...] two capsule by mouth at bedtime Eduardo Burciaga M.D. 021 Metoprolol Tartrate 25mg Tablets 1/2 by mouth twice a day Kimberly Noble D.O. Prednisone 10mg Tablets 4 by mouth daily [...] Tablets by jesús th daily 90tabs Eduardo Burciaga M.D. 08/31/2017 Flomax 0.4mg Capsules take one capsule by mouth every day 90caps Eduardo Burciaga M.D. 08/31/2017 Levothyroxine Sodium 88mcg Tablets 1 by mouth every day 90tabs Eduardo Burciaga M.D. 08/02/2016 Medications Administered in Office Medication SIG Qnty Indications Ordering Provider Date Immunization Adminstration,1 Vaccine/Tox oid Injection Eduardo Burciaga M.D. 020 Depo-Medrol Injection Injection Kimberly Noble D.O. 04/07/2006 Immunizations CPT Code Status Date Vaccine Lot # [id number] Given 08/13/2020 Influenza Vaccin e Quadrivalent Preser/Antibiotic Free Im Use [id number] 06700 Given 03/13/2015 Prevnar 13 [id number] Given 04/21/2011 Pneumovax 23 [id number] Given 09/05/2008 Influenza Virus Vaccine [id number] Refused 08/31/2017 Influenza Vaccin e Quadrivalent Preser/Antibiotic [...] Test Result H/L Range Note A1c 07/01/2021 [facility] Support Technician: [place] [address] [phone] Hba1c 5.5 % <5.7 1 Est Avg Glucose 111 mg/dL High 60 - 110 Comprehensive Chem Profile 07/01/2021 [facility] Support Technician: [place] [address] [phone] Glucose 104 mg/dL High 74 - 99 [...] mL/min Low >60 4 Lipid Profile 07/01/2021 [facility] Support Technician: [place] [address] [phone] Cholesterol 184 mg/dL 131 - 200 Triglycerides 146 mg/dL 30 - 150 HDL Cholesterol 80 mg/dL High 35 - 60 LDL (Calculated) 75 CALC 50 - 159 Laboratory test finding 07/01/2021 [facility] Support Technician: Dr Laith Silveira [place], [place] [id number] [phone] Thyroid Stimulating Hormone 0.88 uIU/mL 0.3 6 - 3.74 Complete Blood Count 07/01/2021 [facility] Support Technician: Dr Laith Silveira [place], [place] [id number] [phone] WBC 13.6 x10*3/UL High 4.1 - 10.9 [...] 2.0 - 7.8 Complete Blood Count 06/17/2021 [facility] Support Technician: [place] [address] [phone] WBC 11.2 x10*3/UL High 4.1 - 10.9 [...] 2.0 - 7.8 Basic Metabolic Panel 06/17/2021 [facility] Support Technician: Dr Laith Silveira [place], [place] [id number] [phone] Glucose 149 mg/dL High 74 - 99 [...] Low >60 9 Laboratory test finding 06/17/2021 [facility] Support Technician: [place] [address] [phone] Thyroid Stimulating Hormone 2.97 uIU/mL 0.3 6 - 3.74 Laboratory test finding 05/22/2021 [place] [id number] [phone] Thyroid Stimulating Hormone 1.940 uIU/ML Normal 0. 358-3.740 Free T4 0.90 ng/dL Normal 0.76-1.46 Laboratory test finding 05/22/2021 [facility] [address] [id number] [phone] Platelet Estimate DECREASED Normal Normal Differential 05/22/2021 [facility] [address] [place] [address] [phone] Neutrophils 64 % Normal 28-66 Bands 12 % High < 11 Lymphocytes 11 % Low 16-44 Monocytes 9 % High 0-5 Basophils 1 % Normal 0-1 Metamyelocytes 1 % High 0-0 Myelocytes 2 % High 0-0 CBC With Differential 05/22/[address] [address] [phone] White Blood Count 8.4 10 Normal 4.0-10.0 [...] % High 0-0 Basic Metabolic Profile 05/22/[address] [address] [phone] Glucose, Fasting 94 mg/dL Normal 70-100 Blood [...] 7.9 mg/dL Low 8.8-10.2 Liver Profile 05/22/2021 [facility] n[facility] [address] [place] [address] [phone] Ast/Sgot 29 U/L Normal 7-37 Alt/SGPT 53 U/L Normal 12-78 Alkaline Phosphatase 131 U/L High 45-117 Bilirubin,Total 0.4 mg/dL Normal 0.2-1.0 Bilirubin,Direct 0.2 mg/dL Normal 0.0-0.2 Total Protein 5.8 GM/DL Low 6.4-8.2 Albumin 2.6 GM/DL Low 3.2-5.2 Albumin/Globulin Ratio 0.8 Normal Cardiac Marker Panel 05/22/2021 [facility] [address] [place] [address] [phone] CPK Creatine Phosphokinase 58 U/L Normal 39-30 8 CK-MB Value Mass 3.1 NG/ML Normal <3.6 MB/CK Relative Index 5.34 High < Or =4 11 Troponin I 0.14 NG/ML High < 0.10 12 Influenza A/B RSV Covid Amp 05/22/2021 [facility] [address] [place], [place] [id number] [phone] Influenza A Amplification NEGATIVE Normal Negati ve 13 Influenza B Amplification NEGATIVE Normal Negative 14 RSV Amplification NEGATIVE Normal Negative 15 Sars Covid-19 Amplification NEGATIVE Normal Negative 16 Laboratory test finding 05/22/2021 [facility] [address] [place] [address] [phone] C Reactive Protein Quantitativ 10.10 mg/dL High 0.00-0.30 Cardiac Marker Panel 05/22/2021 [facility] [address] [place] [address] [phone] CPK Creatine Phosphokinase 55 U/L Normal 39-30 8 CK-MB Value Mass 3.2 NG/ML Normal <3.6 MB/CK Relative Index 5.82 High < Or =4 17 Troponin I 0.13 NG/ML High < 0.10 18 Laboratory test finding 05/07/2021 [facility] [address] [place] [address] [phone] iSTAT Troponin 0.10 NG/ML High 0.00-0.08 Istat Chem8+ Panel 05/07/2021 [facility] n[facility] [address] [place] [address] [phone] iSTAT HCT 33.0 % Low 38.0-51.0 iSTAT Glucose 89 mg/dL Normal 70-105 iSTAT Sodium 140 mEq/L Normal 136-145 iSTAT Potassium 3.9 mEq/L Normal 3.5-5.1 iSTAT CA++ 4.2 mg/dL Low 4.5-5.3 iSTAT Chloride 100 mEq/L Normal 98-109 iSTAT Co2 24.0 MM/L Normal 23.0-27.0 iSTAT BUN 41 mg/dL High 8-26 iSTAT Creatinine 4.4 mg/dL High 0.6-1.3 CBC With Differential 05/07/2021 [facility] [address] [place] [address] [phone] White Blood Count 6.9 10 Normal 4.0-10.0 [...] 36.0-66.0 Lymph % 5.7 % Low 24.0-44.0 [place] % 5.1 % Normal 2.0-8.0 Eos % 3.6 % High 0.0-3.0 Baso % 0.3 % Normal 0.0-1.0 Immature Granulocyte % 2.6 % Normal 0-3.0 Nucleated Red Blood Cell % 0.0 % Normal 0-0 Neutrophils # 5.7 10 Normal 1.5-8.5 Lymph # 0.4 10 Low 1.5-5.0 [place] # 0.4 10 Normal 0.0-0.8 Eos # 0.3 10 Normal 0.0-0.5 Baso # 0.0 10 Normal 0.0-0.2 Laboratory test finding 05/07/2021 [facility] [address] [place] [address] [phone] Ammonia < 10 uMOL/L Normal <32 Liver Profile 05/07/2021 [facility] [address] [place] [address] [phone] Ast/Sgot 70 U/L High 7-37 Alt/SGPT 69 U/L Normal 12-78 Alkaline Phosphatase 84 U/L Normal 45-117 Bilirubin,Total 0.5 mg/dL Normal 0.2-1.0 Bilirubin,Direct 0.2 mg/dL Normal 0.0-0.2 Total Protein 5.3 GM/DL Low 6.4-8.2 Albumin 2.4 GM/DL Low 3.2-5.2 Albumin/Globulin Ratio 0.8 Normal Basic Metabolic Profile 05/07/2021 [id number] [place] [address] [phone] Glucose, Fasting 90 mg/dL Normal 70-100 Blood [...] mg/dL Low 8.8-10.2 Laboratory test finding 05/07/[address] [address] [phone] Thyroid Stimulating Hormone 0.505 uIU/ML Normal 0. 358-3.740 Influenza A/B RSV Covid Amp 05/07/[address] [address] [phone] Influenza A Amplification NEGATIVE Normal Negati ve 20 Influenza B Amplification NEGATIVE Normal Negative 21 RSV Amplification NEGATIVE Normal Negative 22 Sars Covid-19 Amplification NEGATIVE Normal Negative 23 Cardiac Marker Panel 04/27/2021 [facility] [address] [place] [address] [phone] CPK Creatine Phosphokinase 850 U/L High 39-30 8 CK-MB Value Mass 7.7 NG/ML High <3.6 MB/CK Relative Index 0.91 Normal < Or =4 24 Troponin I 1.15 NG/ML High < 0.10 25 Complete Blood Count 04/01/2021 [facility] [address] [place] [address] [phone] White Blood Count 9.4 10 Normal 4.0-10.0 [...] 0.0 % Normal 0-0 Prothrombin Time/Inr 04/01/2021 [facility] [address] [place] [address] [phone] Prothrombin Time 13.7 seconds Normal 12.5-14.3 Inr [...] LITTLE GFR LEFT ESRD GFR <15 ON HEAT TREATMENT TECHNICIAN 5 NOTE: CBC VERIFIED 6 CRITICAL: CBC VERIFIED 7 100-125 mg/dL PRE-DIABET ES/FASTING >126 mg/dL DIABETES/FASTING 8 NOTE: BUN,CREAT VERIFIED 9 CHRONIC KIDNEY DISEASE STAGI NG PER NKF STAGE I & II GFR >= 60 NORMAL TO MILDLY DECREASED STAGE III GFR 30-59 MODERATELY DECREASED STAGE IV GFR 15-29 SEVERELY DECREASED STAGE V GFR <15 VERY LITTLE GFR LEFT ESRD GFR <15 ON HEAT TREATMENT TECHNICIAN 10 Units are mL/min/1.73 m2 Chronic Kidney Disease Staging per NKF: Stage I & II GFR >=60 Normal to Mildly Decreased Stage III GFR 30-59 Moderately Decreased Stage IV GFR 15-29 Severely Decreased Stage V GFR <15 Very Little GFR Left ESRD GFR <15 on HEAT TREATMENT TECHNICIAN 11 DIAGNOSIS CRITERIA MMB ng/ml Relative Index (RI) NON-AMI < or = 5 N/A [place] ZONE > 5 < or = 4 AMI > 5 > 4 12 Troponin I Reference Interva l for [employer] [place] LOCI: 99th Percentile= 0.00-0.045 ng/ml Risk Stratification: [...] pathogens. DISCLAIMER: Testing was performed using the [employer] SARS-CoV-2 test. This test was developed and its performance characteristics determined by [employer]. This test has not been FDA cleared [...] Troponin I Reference Interva l for [employer] [place] LOCI: 99th Percentile= 0.00-0.045 ng/ml Risk Stratification: [...] Little GFR Left ESRD GFR <15 on HEAT TREATMENT TECHNICIAN 20 Negative results do not prec lude [...] pathogens. DISCLAIMER: Testing was performed using the [employer] SARS-CoV-2 test. This test was developed and its performance characteristics determined by [employer]. This test has not been FDA cleared [...] Troponin I Reference Interva l for [employer] [place] LOCI: 99th Percentile= 0.00-0.045 ng/ml Risk Stratification: [...] 2.5-3.5 Procedures Date Code Description Status 06/17/2021 [address] Office/Outpatient Established Mo d MDM 30-39 Min Completed 07/18/2018 [id number] Diabetic Retinal Eye Exam Comple [facility] 01/25/2017 [id number] Diabetic Foot Exam Completed 01/21/2017 [id number] Diabetic Foot Exam Completed 04/14/2006 [id number] Bone Mineral Density Test Comple [facility] Medical Devices Description No Information Available Encounters Type Date Location Provider Dx Diagnosis Office Visit 06/17/2021 10:20a [facility] [place] R26.89 Other abnormalities of gait and mobility N17.9 Acute kidney failure, unspec ified I12.9 Hypertensive chronic kidney disease w stg 1-4/unsp chr kdny N18.4 Chronic kidney disease, stag e 4 (severe) I73.9 Peripheral vascular disease, unspecified I48.91 Unspecified atrial fibrillat ion I48.92 Unspecified atrial flutter Z79.01 correction (current) use of a nticoagulants E11.40 Type 2 diabetes mellitus wit h diabetic neuropathy, unsp 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 07/03/2021 E11.40 Type 2 diabetes kaye itus with diabetic neuropathy, unspecified Eduardo Burciaga M.D. 07/03/2021 E03.9 Hypothyroidism, unspecified Robby Burciaga M.D. 07/03/2021 R26.89 Other abnormalities of gait and mobility Eduardo Burciaga M.D. 07/03/2021 N18.6 End stage renal disease Eduardo Burciaga M.D. 07/03/2021 Z99.2 Dependence on renal dialysis Patrick Burciaga M.D. 07/01/2021 D64.9 Anemia, unspecified Eduardo mohamud M.D. 07/01/2021 D64.9 Anemia, unspecified Lab Schedule 07/01/2021 E11.40 Type 2 diabetes kaye itus with diabetic neuropathy, unspecified Eduardo Burciaga M.D. 07/01/2021 E11.40 Type 2 diabetes kaye itus with diabetic neuropathy, unspecified Lab Schedule 07/01/2021 E78.00 Pure hypercholesterolemia, unspe cified Eduardo Burciaga M.D. 07/01/2021 E78.00 Pure hypercholesterolemia, unspe cified Lab Schedule 07/01/2021 E03.9 Hypothyroidism, unspecified Robby Burciaga M.D. 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 WILVER Nunez JR 06/17/2021 E11.40 Type 2 diabetes kaye itus with diabetic neuropathy, unspecified WILVER Nunez JR 06/17/2021 I25.10 Atherosclerotic heart disease of [place] coronary artery with WILVER Nunez JR 06/17/2021 E03.9 Hypothyroidism, unspecified [place] rt Aroldo Pérez JR, WILVER 06/17/2021 D64.9 Anemia, unspecified WILVER Constantino JR 06/17/2021 J44.9 Chronic obstructive pulmonary di sease, unspecified WILVER Nunez JR Plan of Treatment No Information Available Functional Status Description No Information Available Mental Status Description No Information Available Referrals Description No Information Available
--- OUTSIDE RECORDS SUMMARY | 2021-09-03 11:54 | CCD | Continuity of Care Document ---
Author Author Raúl BURCIAGA M.D. Organization Unknown Address [address] [facility] [address] [place] [address] Phone [phone] Care Team Providers Care Industrial Training Specialist Name Role Phone Eduardo Burciaga MD AUTM [phone] [facility] AUTM [phone] Problems Active Problems Provider Date Chronic diastolic [...] CPT Code Status Date Vaccine Lot # [id number] Given 08/13/2020 Influenza Vaccin e Quadrivalent Preser/Antibiotic Free Im Use [id number] Given 03/13/2015 Prevnar 13 [id number] Given 04/21/2011 Pneumovax 23 [id number] Given 09/05/2008 Influenza Virus Vaccine [id number] Refused 08/31/2017 Influenza Vaccin e Quadrivalent Preser/Antibiotic [...] Test Result H/L Range Note A1c 07/01/2021 [facility] Senior Telecommunications Consultant: [place]ith [place] [address] [phone] Hba1c 5.5 % <5.7 1 Est Avg Glucose 111 mg/dL High 60 - 110 Comprehensive Chem Profile 07/01/2021 [facility] Senior Telecommunications Consultant: [place]ith [place] [address] [phone] Glucose 104 mg/dL High 74 - 99 [...] mL/min Low >60 4 Lipid Profile 07/01/2021 [facility] Senior Telecommunications Consultant: [place] [address] [phone] Cholesterol 184 mg/dL 131 - 200 Triglycerides 146 mg/dL 30 - 150 HDL Cholesterol 80 mg/dL High 35 - 60 LDL (Calculated) 75 CALC 50 - 159 Laboratory test finding 07/01/2021 [facility] Senior Telecommunications Consultant: Dr Laith Silveira [place], [place] [id number] [phone] Thyroid Stimulating Hormone 0.88 uIU/mL 0.3 6 - 3.74 Complete Blood Count 07/01/2021 [facility] Senior Telecommunications Consultant: Dr Laith Silveira [place], [place] [id number] [phone] WBC 13.6 x10*3/UL High 4.1 - 10.9 [...] 2.0 - 7.8 Complete Blood Count 06/17/2021 [facility] Senior Telecommunications Consultant: [place] [address] [phone] WBC 11.2 x10*3/UL High 4.1 - 10.9 [...] 2.0 - 7.8 Basic Metabolic Panel 06/17/2021 [facility] Senior Telecommunications Consultant: Dr Laith Silveira [place], [place] [id number] [phone] Glucose 149 mg/dL High 74 - 99 [...] Low >60 9 Laboratory test finding 06/17/2021 [facility] Senior Telecommunications Consultant: [place] [address] [phone] Thyroid Stimulating Hormone 2.97 uIU/mL 0.3 6 - 3.74 Laboratory test finding 05/22/2021 [place] [id number] [phone] Thyroid Stimulating Hormone 1.940 uIU/ML Normal 0. 358-3.740 Free T4 0.90 ng/dL Normal 0.76-1.46 Laboratory test finding 05/22/2021 [facility] [address] [place] [id number] [phone] Platelet Estimate DECREASED Normal Normal Differential 05/22/2021 [facility] [address] [place] [address] [phone] Neutrophils 64 % Normal 28-66 Bands 12 % High < 11 Lymphocytes 11 % Low 16-44 Monocytes 9 % High 0-5 Basophils 1 % Normal 0-1 Metamyelocytes 1 % High 0-0 Myelocytes 2 % High 0-0 CBC With Differential 05/22/[address] [address] [phone] White Blood Count 8.4 10 Normal 4.0-10.0 [...] % High 0-0 Basic Metabolic Profile 05/22/[address] [address] [phone] Glucose, Fasting 94 mg/dL Normal 70-100 Blood [...] 7.9 mg/dL Low 8.8-10.2 Liver Profile 05/22/2021 [facility] [address] [place] [address] [phone] Ast/Sgot 29 U/L Normal 7-37 Alt/SGPT 53 U/L Normal 12-78 Alkaline Phosphatase 131 U/L High 45-117 Bilirubin,Total 0.4 mg/dL Normal 0.2-1.0 Bilirubin,Direct 0.2 mg/dL Normal 0.0-0.2 Total Protein 5.8 GM/DL Low 6.4-8.2 Albumin 2.6 GM/DL Low 3.2-5.2 Albumin/Globulin Ratio 0.8 Normal Cardiac Marker Panel 05/22/2021 [facility] [address] [place] [address] [phone] CPK Creatine Phosphokinase 58 U/L Normal 39-30 8 CK-MB Value Mass 3.1 NG/ML Normal <3.6 MB/CK Relative Index 5.34 High < Or =4 11 Troponin I 0.14 NG/ML High < 0.10 12 Influenza A/B RSV Covid Amp 05/22/2021 [facility] [address] [place], [place] [address] [phone] Influenza A Amplification NEGATIVE Normal Negati ve 13 Influenza B Amplification NEGATIVE Normal Negative 14 RSV Amplification NEGATIVE Normal Negative 15 Sars Covid-19 Amplification NEGATIVE Normal Negative 16 Laboratory test finding 05/22/2021 [facility] [address] [place] [address] [phone] C Reactive Protein Quantitativ 10.10 mg/dL High 0.00-0.30 Cardiac Marker Panel 05/22/2021 [facility] [address] [place] [address] [phone] CPK Creatine Phosphokinase 55 U/L Normal 39-30 8 CK-MB Value Mass 3.2 NG/ML Normal <3.6 MB/CK Relative Index 5.82 High < Or =4 17 Troponin I 0.13 NG/ML High < 0.10 18 Laboratory test finding 05/07/2021 [facility] [address] [place] [address] [phone] iSTAT Troponin 0.10 NG/ML High 0.00-0.08 Istat Chem8+ Panel 05/07/2021 [facility] [address] [place] [address] [phone] iSTAT HCT 33.0 % Low 38.0-51.0 iSTAT Glucose 89 mg/dL Normal 70-105 iSTAT Sodium 140 mEq/L Normal 136-145 iSTAT Potassium 3.9 mEq/L Normal 3.5-5.1 iSTAT CA++ 4.2 mg/dL Low 4.5-5.3 iSTAT Chloride 100 mEq/L Normal 98-109 iSTAT Co2 24.0 MM/L Normal 23.0-27.0 iSTAT BUN 41 mg/dL High 8-26 iSTAT Creatinine 4.4 mg/dL High 0.6-1.3 CBC With Differential 05/07/2021 [facility] [address] [place] [address] [phone] White Blood Count 6.9 10 Normal 4.0-10.0 [...] 36.0-66.0 Lymph % 5.7 % Low 24.0-44.0 Cotton % 5.1 % Normal 2.0-8.0 Eos % 3.6 % High 0.0-3.0 Baso % 0.3 % Normal 0.0-1.0 Immature Granulocyte % 2.6 % Normal 0-3.0 Nucleated Red Blood Cell % 0.0 % Normal 0-0 Neutrophils # 5.7 10 Normal 1.5-8.5 Lymph # 0.4 10 Low 1.5-5.0 Cotton # 0.4 10 Normal 0.0-0.8 Eos # 0.3 10 Normal 0.0-0.5 Baso # 0.0 10 Normal 0.0-0.2 Laboratory test finding 05/07/2021 [facility] [address] [place] [address] [phone] Ammonia < 10 uMOL/L Normal <32 Liver Profile 05/07/2021 [facility] [address] [place] [address] [phone] Ast/Sgot 70 U/L High 7-37 Alt/SGPT 69 U/L Normal 12-78 Alkaline Phosphatase 84 U/L Normal 45-117 Bilirubin,Total 0.5 mg/dL Normal 0.2-1.0 Bilirubin,Direct 0.2 mg/dL Normal 0.0-0.2 Total Protein 5.3 GM/DL Low 6.4-8.2 Albumin 2.4 GM/DL Low 3.2-5.2 Albumin/Globulin Ratio 0.8 Normal Basic Metabolic Profile 05/07/2021 [place] [address] [place] [address] [phone] Glucose, Fasting 90 mg/dL Normal 70-100 Blood [...] mg/dL Low 8.8-10.2 Laboratory test finding 05/07/[address] [address] [phone] Thyroid Stimulating Hormone 0.505 uIU/ML Normal 0. 358-3.740 Influenza A/B RSV Covid Amp 05/07/[address] [address] [phone] Influenza A Amplification NEGATIVE Normal Negati ve 20 Influenza B Amplification NEGATIVE Normal Negative 21 RSV Amplification NEGATIVE Normal Negative 22 Sars Covid-19 Amplification NEGATIVE Normal Negative 23 Cardiac Marker Panel 04/27/2021 [facility] [address] [place] [address] [phone] CPK Creatine Phosphokinase 850 U/L High 39-30 8 CK-MB Value Mass 7.7 NG/ML High <3.6 MB/CK Relative Index 0.91 Normal < Or =4 24 Troponin I 1.15 NG/ML High < 0.10 25 Complete Blood Count 04/01/2021 [facility] [address] [place] [address] [phone] White Blood Count 9.4 10 Normal 4.0-10.0 [...] 0.0 % Normal 0-0 Prothrombin Time/Inr 04/01/2021 [facility] [address] [place] [address] [phone] Prothrombin Time 13.7 seconds Normal 12.5-14.3 Inr [...] LITTLE GFR LEFT ESRD GFR <15 ON INTERNATIONAL MARKETING MANAGER 5 NOTE: CBC VERIFIED 6 CRITICAL: CBC VERIFIED 7 100-125 mg/dL PRE-DIABET ES/FASTING >126 mg/dL DIABETES/FASTING 8 NOTE: BUN,CREAT VERIFIED 9 CHRONIC KIDNEY DISEASE STAGI NG PER NKF STAGE I & II GFR >= 60 NORMAL TO MILDLY DECREASED STAGE III GFR 30-59 MODERATELY DECREASED STAGE IV GFR 15-29 SEVERELY DECREASED STAGE V GFR <15 VERY LITTLE GFR LEFT ESRD GFR <15 ON INTERNATIONAL MARKETING MANAGER 10 Units are mL/min/1.73 m2 Chronic Kidney Disease Staging per NKF: Stage I & II GFR >=60 Normal to Mildly Decreased Stage III GFR 30-59 Moderately Decreased Stage IV GFR 15-29 Severely Decreased Stage V GFR <15 Very Little GFR Left ESRD GFR <15 on INTERNATIONAL MARKETING MANAGER 11 DIAGNOSIS CRITERIA MMB ng/ml Relative Index (RI) NON-AMI < or = 5 N/A [place] ZONE > 5 < or = 4 AMI > 5 > 4 12 Troponin I Reference Interva l for [employer] [place] LOCI: 99th Percentile= 0.00-0.045 ng/ml Risk Stratification: [...] pathogens. DISCLAIMER: Testing was performed using the [employer] SARS-CoV-2 test. This test was developed and its performance characteristics determined by [employer]. This test has not been FDA cleared [...] Troponin I Reference Interva l for [employer] [place] LOCI: 99th Percentile= 0.00-0.045 ng/ml Risk Stratification: [...] Little GFR Left ESRD GFR <15 on INTERNATIONAL MARKETING MANAGER 20 Negative results do not prec lude [...] pathogens. DISCLAIMER: Testing was performed using the [employer] SARS-CoV-2 test. This test was developed and its performance characteristics determined by [employer]. This test has not been FDA cleared [...] Troponin I Reference Interva l for [employer] [place] LOCI: 99th Percentile= 0.00-0.045 ng/ml Risk Stratification: [...] 2.5-3.5 Procedures Date Code Description Status 06/17/2021 [address]2872 Office/Outpatient Established Mo d MDM 30-39 Min Completed 07/18/2018 [id number] Diabetic Retinal Eye Exam [facility]ple [facility] 01/25/2017 [id number] Diabetic Foot Exam Completed 01/21/2017 [id number] Diabetic Foot Exam Completed 04/14/2006 [id number] Bone Mineral Density Test [facility] Medical Devices Description No Information Available Encounters Type Date Location Provider Dx Diagnosis Office Visit 06/17/2021 10:[facility] R26.89 Other abnormalities of gait and mobility N17.9 Acute kidney failure, unspec ified I12.9 Hypertensive chronic kidney disease w stg 1-4/unsp chr kdny N18.4 Chronic kidney disease, stag e 4 (severe) I73.9 Peripheral vascular disease, unspecified I48.91 Unspecified atrial fibrillat ion I48.92 Unspecified atrial flutter Z79.01 [facility] (current) use of a nticoagulants E11.40 Type 2 diabetes mellitus wit h diabetic neuropathy, unsp 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 [...] atrial flutter WILVER Nava JR 06/17/2021 Z79.01 [facility] (current) use of antic oagulants WILVER Nunez JR 06/17/2021 E11.40 Type 2 diabetes kaye itus with diabetic neuropathy, unspecified WILVER Nunez JR 06/17/2021 I25.10 Atherosclerotic heart disease of [place] coronary artery with WILVER Nunez JR 06/17/2021 E03.9 Hypothyroidism, unspecified WILVER Latif JR 06/17/2021 D64.9 Anemia, unspecified WILVER Constantino JR 06/17/2021 J44.9 Chronic obstructive pulmonary di sease, unspecified Raúl Pérez JR, PA Plan of Treatment No Information Available Functional Status Description No Information Available Mental Status Description No Information Available Referrals Description No Information Available
--- OUTSIDE RECORDS SUMMARY | 2021-09-03 11:54 | CCD | Continuity of Care Document ---
Author Author Lab Schedule, Raúl Hale Organization Unknown Address [address] [address] Phone Unavailable Care Team Providers Care General Passenger Agent Name Role Phone Eduardo Sandoval MD AUTM [phone] [facility] AUTM [phone] Problems Active Problems Provider Date Chronic diastolic [...] 1 by mouth every day 90tabs WILVER Nuenz JR 021 Vitamin B-12 1000mcg Tablets 1 [...] CPT Code Status Date Vaccine Lot # 14399 Given 08/13/2020 Influenza Vaccin e Quadrivalent Preser/Antibiotic Free Im Use [id number] 83688 Given 03/13/2015 Prevnar 13 [id number] [id number] Given 04/21/2011 Pneumovax 23 81076 Given 09/05/2008 Influenza Virus Vaccine 44954 Refused 08/31/2017 Influenza Vaccin e Quadrivalent Preser/Antibiotic [...] Test Result H/L Range Note A1c 07/01/2021 [facility] Storage Facility Housekeeper: [place] [address] [phone] Hba1c 5.5 % <5.7 1 Est Avg Glucose 111 mg/dL High 60 - 110 Comprehensive Chem Profile 07/01/2021 [facility] Storage Facility Housekeeper: [place] [address] [phone] Glucose 104 mg/dL High 74 - 99 [...] mL/min Low >60 4 Lipid Profile 07/01/2021 [facility] , Storage Facility Housekeeper: [place] [address] [phone] Cholesterol 184 mg/dL 131 - 200 Triglycerides 146 mg/dL 30 - 150 HDL Cholesterol 80 mg/dL High 35 - 60 LDL (Calculated) 75 CALC 50 - 159 Laboratory test finding 07/01/2021 [facility] Storage Facility Housekeeper: Dr [place] [id number] [phone] Thyroid Stimulating Hormone 0.88 uIU/mL 0.3 6 - 3.74 Complete Blood Count 07/01/2021 [facility] Storage Facility Housekeeper: Dr Laith Dolanlogg [place] [id number] [phone] WBC 13.6 x10*3/UL High 4.1 - 10.9 [...] 2.0 - 7.8 Complete Blood Count 06/17/2021 [facility] Storage Facility Housekeeper: [place] [address] [phone] WBC 11.2 x10*3/UL High 4.1 - 10.9 [...] 2.0 - 7.8 Basic Metabolic Panel 06/17/2021 [facility] Storage Facility Housekeeper: [place] [address] [phone] Glucose 149 mg/dL High 74 - 99 [...] Low >60 9 Laboratory test finding 06/17/2021 [facility] Storage Facility Housekeeper: [place] [address] [phone] Thyroid Stimulating Hormone 2.97 uIU/mL 0.3 6 - 3.74 Laboratory test finding 05/22/[address] [address] [phone] Thyroid Stimulating Hormone 1.940 uIU/ML Normal 0. 358-3.740 Free T4 0.90 ng/dL Normal 0.76-1.46 Laboratory test finding 05/22/2021 [facility] [address] [place] [address] [phone] Platelet Estimate DECREASED Normal Normal Differential 05/22/2021 [facility] nt [address] [place] [address] [phone] Neutrophils 64 % Normal 28-66 Bands 12 % High < 11 Lymphocytes 11 % Low 16-44 Monocytes 9 % High 0-5 Basophils 1 % Normal 0-1 Metamyelocytes 1 % High 0-0 Myelocytes 2 % High 0-0 CBC With Differential 05/22/2021 [facility] [address] [place] [address] [phone] White Blood Count 8.4 10 Normal 4.0-10.0 [...] % High 0-0 Basic Metabolic Profile 05/22/2021 [facility] [address] [place] [address] [phone] Glucose, Fasting 94 mg/dL Normal 70-100 Blood [...] 7.9 mg/dL Low 8.8-10.2 Liver Profile 05/22/2021 [facility] nter [address] [place] [address] [phone] Ast/Sgot 29 U/L Normal 7-37 Alt/SGPT 53 U/L Normal 12-78 Alkaline Phosphatase 131 U/L High 45-117 Bilirubin,Total 0.4 mg/dL Normal 0.2-1.0 Bilirubin,Direct 0.2 mg/dL Normal 0.0-0.2 Total Protein 5.8 GM/DL Low 6.4-8.2 Albumin 2.6 GM/DL Low 3.2-5.2 Albumin/Globulin Ratio 0.8 Normal Cardiac Marker Panel 05/22/2021 [facility] [address] [place] [address] [phone] CPK Creatine Phosphokinase 58 U/L Normal 39-30 8 CK-MB Value Mass 3.1 NG/ML Normal <3.6 MB/CK Relative Index 5.34 High < Or =4 11 Troponin I 0.14 NG/ML High < 0.10 12 Influenza A/B RSV Covid Amp 05/22/2021 [facility] [address] [place] [address] [phone] Influenza A Amplification NEGATIVE Normal Negati ve 13 Influenza B Amplification NEGATIVE Normal Negative 14 RSV Amplification NEGATIVE Normal Negative 15 Sars Covid-19 Amplification NEGATIVE Normal Negative 16 Laboratory test finding 05/22/2021 [facility] [address] [place] [address] [phone] C Reactive Protein Quantitativ 10.10 mg/dL High 0.00-0.30 Cardiac Marker Panel 05/22/2021 [facility] enter [address] [place] [address] [phone] CPK Creatine Phosphokinase 55 U/L Normal 39-30 8 CK-MB Value Mass 3.2 NG/ML Normal <3.6 MB/CK Relative Index 5.82 High < Or =4 17 Troponin I 0.13 NG/ML High < 0.10 18 Laboratory test finding 05/07/2021 [facility] [address] [place] [address] [phone] iSTAT Troponin 0.10 NG/ML High 0.00-0.08 Istat Chem8+ Panel 05/07/2021 [facility] nter [address] [place] [address] [phone] iSTAT HCT 33.0 % Low 38.0-51.0 iSTAT Glucose 89 mg/dL Normal 70-105 iSTAT Sodium 140 mEq/L Normal 136-145 iSTAT Potassium 3.9 mEq/L Normal 3.5-5.1 iSTAT CA++ 4.2 mg/dL Low 4.5-5.3 iSTAT Chloride 100 mEq/L Normal 98-109 iSTAT Co2 24.0 MM/L Normal 23.0-27.0 iSTAT BUN 41 mg/dL High 8-26 iSTAT Creatinine 4.4 mg/dL High 0.6-1.3 CBC With Differential 05/07/2021 [facility] [address] [place] [address] [phone] White Blood Count 6.9 10 Normal 4.0-10.0 [...] 36.0-66.0 Lymph % 5.7 % Low 24.0-44.0 [place] % 5.1 % Normal 2.0-8.0 Eos % 3.6 % High 0.0-3.0 Baso % 0.3 % Normal 0.0-1.0 Immature Granulocyte % 2.6 % Normal 0-3.0 Nucleated Red Blood Cell % 0.0 % Normal 0-0 Neutrophils # 5.7 10 Normal 1.5-8.5 Lymph # 0.4 10 Low 1.5-5.0 [place] # 0.4 10 Normal 0.0-0.8 Eos # 0.3 10 Normal 0.0-0.5 Baso # 0.0 10 Normal 0.0-0.2 Laboratory test finding 05/07/2021 [facility] [address] [place] [address] [phone] Ammonia < 10 uMOL/L Normal <32 Liver Profile 05/07/2021 [facility] nter [address] [place] [address] [phone] Ast/Sgot 70 U/L High 7-37 Alt/SGPT 69 U/L Normal 12-78 Alkaline Phosphatase 84 U/L Normal 45-117 Bilirubin,Total 0.5 mg/dL Normal 0.2-1.0 Bilirubin,Direct 0.2 mg/dL Normal 0.0-0.2 Total Protein 5.3 GM/DL Low 6.4-8.2 Albumin 2.4 GM/DL Low 3.2-5.2 Albumin/Globulin Ratio 0.8 Normal Basic Metabolic Profile 05/07/[address] [address] [phone] Glucose, Fasting 90 mg/dL Normal 70-100 Blood [...] mg/dL Low 8.8-10.2 Laboratory test finding 05/07/[address] [address] [phone] Thyroid Stimulating Hormone 0.505 uIU/ML Normal 0. 358-3.740 Influenza A/B RSV Covid Amp 05/07/[address] [address] [phone] Influenza A Amplification NEGATIVE Normal Negati ve 20 Influenza B Amplification NEGATIVE Normal Negative 21 RSV Amplification NEGATIVE Normal Negative 22 Sars Covid-19 Amplification NEGATIVE Normal Negative 23 Cardiac Marker Panel 04/27/2021 [facility] [address] [place] [address] [phone] CPK Creatine Phosphokinase 850 U/L High 39-30 8 CK-MB Value Mass 7.7 NG/ML High <3.6 MB/CK Relative Index 0.91 Normal < Or =4 24 Troponin I 1.15 NG/ML High < 0.10 25 Complete Blood Count 04/01/2021 [facility] [address] [place] [address] [phone] White Blood Count 9.4 10 Normal 4.0-10.0 [...] 0.0 % Normal 0-0 Prothrombin Time/Inr 04/01/2021 [facility] [address] [place] [address] [phone] Prothrombin Time 13.7 seconds Normal 12.5-14.3 Inr [...] LITTLE GFR LEFT ESRD GFR <15 ON BRASS BOBBIN WINDER 5 NOTE: CBC VERIFIED 6 CRITICAL: CBC VERIFIED 7 100-125 mg/dL PRE-DIABET ES/FASTING >126 mg/dL DIABETES/FASTING 8 NOTE: BUN,CREAT VERIFIED 9 CHRONIC KIDNEY DISEASE STAGI NG PER NKF STAGE I & II GFR >= 60 NORMAL TO MILDLY DECREASED STAGE III GFR 30-59 MODERATELY DECREASED STAGE IV GFR 15-29 SEVERELY DECREASED STAGE V GFR <15 VERY LITTLE GFR LEFT ESRD GFR <15 ON BRASS BOBBIN WINDER 10 Units are mL/min/1.73 m2 Chronic Kidney Disease Staging per NKF: Stage I & II GFR >=60 Normal to Mildly Decreased Stage III GFR 30-59 Moderately Decreased Stage IV GFR 15-29 Severely Decreased Stage V GFR <15 Very Little GFR Left ESRD GFR <15 on BRASS BOBBIN WINDER 11 DIAGNOSIS CRITERIA MMB ng/ml Relative Index (RI) NON-AMI < or = 5 N/A [place] ZONE > 5 < or = 4 AMI > 5 > 4 12 Troponin I Reference Interva l for [employer] [place] LOCI: 99th Percentile= 0.00-0.045 ng/ml Risk Stratification: [...] pathogens. DISCLAIMER: Testing was performed using the [employer] SARS-CoV-2 test. This test was developed and its performance characteristics determined by [employer]. This test has not been FDA cleared [...] Troponin I Reference Interva l for [employer] [place] LOCI: 99th Percentile= 0.00-0.045 ng/ml Risk Stratification: [...] Little GFR Left ESRD GFR <15 on BRASS BOBBIN WINDER 20 Negative results do not prec lude [...] pathogens. DISCLAIMER: Testing was performed using the [employer] SARS-CoV-2 test. This test was developed and its performance characteristics determined by [employer]. This test has not been FDA cleared [...] Troponin I Reference Interva l for [employer] [place] LOCI: 99th Percentile= 0.00-0.045 ng/ml Risk Stratification: [...] 2.5-3.5 Procedures Date Code Description Status 06/17/2021 80751 Office/Outpatient Established Mo d MDM 30-39 Min Completed 07/18/2018 [id number] Diabetic Retinal Eye Exam Comple [facility] 01/25/2017 [id number] Diabetic Foot Exam Completed 01/21/2017 [id number] Diabetic Foot Exam Completed 04/14/2006 [id number] Bone Mineral Density Test Comple [facility] Medical Devices Description No Information Available Encounters Type Date Location Provider Dx Diagnosis Office Visit 06/17/2021 10:20a [facility] R26.89 Other abnormalities of gait and mobility N17.9 Acute kidney failure, unspec ified I12.9 Hypertensive chronic kidney disease w stg 1-4/unsp chr kdny N18.4 Chronic kidney disease, stag e 4 (severe) I73.9 Peripheral vascular disease, unspecified I48.91 Unspecified atrial fibrillat ion I48.92 Unspecified atrial flutter Z79.01 long-term (current) use of a nticoagulants E11.40 Type [...] Nunez JR 06/17/2021 I48.92 Unspecified atrial flutter Renny Pérez JR PA 06/17/2021 Z79.01 long-term (current) use of antic oagulants WILVER Nunez JR 06/17/2021 E11.40 Type 2 diabetes kaye itus with diabetic neuropathy, unspecified WILVER Nunez JR 06/17/2021 I25.10 Atherosclerotic heart disease of [place] coronary artery with WILVER Nunez JR 06/17/2021 E03.9 Hypothyroidism, unspecified WILVER Latif JR 06/17/2021 D64.9 Anemia, unspecified WILVER Constantino JR 06/17/2021 J44.9 Chronic obstructive pulmonary di sease, unspecified WILVER Nunez JR Plan of Treatment No Information Available Functional Status Description No Information Available Mental Status Description No Information Available Referrals Description No Information Available
--- OUTSIDE RECORDS SUMMARY | 2021-09-03 11:54 | CCD | Continuity of Care Document ---
Author Author Raúl BURCIAGA M.D. Organization Unknown Address [address] [facility] [address] [place] [address] Phone [phone] Care Team Providers Care Tug Boat Captain Name Role Phone Eduardo Burciaga MD AUTM [phone] [facility]a AUTM [phone] Problems Active Problems Provider Date Chronic diastolic [...] CPT Code Status Date Vaccine Lot # [id number] Given 08/13/2020 Influenza Vaccin e Quadrivalent Preser/Antibiotic Free Im Use [id number] Given 03/13/2015 Prevnar 13 [id number] Given 04/21/2011 Pneumovax 23 90088 Given 09/05/2008 Influenza Virus Vaccine [id number] Refused 08/31/2017 Influenza Vaccin e Quadrivalent Preser/Antibiotic [...] Test Result H/L Range Note A1c 07/01/2021 [facility] Sampler Tester: [place] [address] [phone] Hba1c 5.5 % <5.7 1 Est Avg Glucose 111 mg/dL High 60 - 110 Comprehensive Chem Profile 07/01/2021 [facility], Sampler Tester: [place] [address] [phone] Glucose 104 mg/dL High 74 - 99 [...] mL/min Low >60 4 Lipid Profile 07/01/2021 [facility] Sampler Tester: [place] [address] [phone] Cholesterol 184 mg/dL 131 - 200 Triglycerides 146 mg/dL 30 - 150 HDL Cholesterol 80 mg/dL High 35 - 60 LDL (Calculated) 75 CALC 50 - 159 Laboratory test finding 07/01/2021 [facility] Sampler Tester: Dr Laith Silveira [place], [place] [id number] [phone] Thyroid Stimulating Hormone 0.88 uIU/mL 0.3 6 - 3.74 Complete Blood Count 07/01/2021 [facility] Sampler Tester: Dr Laith Silveira [place], [place] [id number] [phone] WBC 13.6 x10*3/UL High 4.1 - 10.9 [...] 2.0 - 7.8 Complete Blood Count 06/17/2021 [facility] Sampler Tester: [place] [address] [phone] WBC 11.2 x10*3/UL High 4.1 - 10.9 [...] 2.0 - 7.8 Basic Metabolic Panel 06/17/2021 [facility] Sampler Tester: Dr Laith Silveira [place], [place] [id number] [phone] Glucose 149 mg/dL High 74 - 99 [...] Low >60 9 Laboratory test finding 06/17/2021 [facility] Sampler Tester: [place] [address] [phone] Thyroid Stimulating Hormone 2.97 uIU/mL 0.3 6 - 3.74 Laboratory test finding 05/22/2021 [place] [id number] [phone] Thyroid Stimulating Hormone 1.940 uIU/ML Normal 0. 358-3.740 Free T4 0.90 ng/dL Normal 0.76-1.46 Laboratory test finding 05/22/2021 [facility] [address] [place] [id number] [phone] Platelet Estimate DECREASED Normal Normal Differential 05/22/2021 [facility] [address] [place] [address] [phone] Neutrophils 64 % Normal 28-66 Bands 12 % High < 11 Lymphocytes 11 % Low 16-44 Monocytes 9 % High 0-5 Basophils 1 % Normal 0-1 Metamyelocytes 1 % High 0-0 Myelocytes 2 % High 0-0 CBC With Differential 05/22/[address] [address] [phone] White Blood Count 8.4 10 Normal 4.0-10.0 [...] % High 0-0 Basic Metabolic Profile 05/22/[address] [address] [phone] Glucose, Fasting 94 mg/dL Normal 70-100 Blood [...] 7.9 mg/dL Low 8.8-10.2 Liver Profile 05/22/2021 [facility] [address] [place] [address] [phone] Ast/Sgot 29 U/L Normal 7-37 Alt/SGPT 53 U/L Normal 12-78 Alkaline Phosphatase 131 U/L High 45-117 Bilirubin,Total 0.4 mg/dL Normal 0.2-1.0 Bilirubin,Direct 0.2 mg/dL Normal 0.0-0.2 Total Protein 5.8 GM/DL Low 6.4-8.2 Albumin 2.6 GM/DL Low 3.2-5.2 Albumin/Globulin Ratio 0.8 Normal Cardiac Marker Panel 05/22/2021 [facility] [address] [place] [address] [phone] CPK Creatine Phosphokinase 58 U/L Normal 39-30 8 CK-MB Value Mass 3.1 NG/ML Normal <3.6 MB/CK Relative Index 5.34 High < Or =4 11 Troponin I 0.14 NG/ML High < 0.10 12 Influenza A/B RSV Covid Amp 05/22/2021 [facility] [address] [place], [place] [id number] [phone] Influenza A Amplification NEGATIVE Normal Negati ve 13 Influenza B Amplification NEGATIVE Normal Negative 14 RSV Amplification NEGATIVE Normal Negative 15 Sars Covid-19 Amplification NEGATIVE Normal Negative 16 Laboratory test finding 05/22/2021 [facility] [address] [place] [address] [phone] C Reactive Protein Quantitativ 10.10 mg/dL High 0.00-0.30 Cardiac Marker Panel 05/22/2021 [facility] [address] [place] [address] [phone] CPK Creatine Phosphokinase 55 U/L Normal 39-30 8 CK-MB Value Mass 3.2 NG/ML Normal <3.6 MB/CK Relative Index 5.82 High < Or =4 17 Troponin I 0.13 NG/ML High < 0.10 18 Laboratory test finding 05/07/2021 [facility] [address] [place] [address] [phone] iSTAT Troponin 0.10 NG/ML High 0.00-0.08 Istat Chem8+ Panel 05/07/2021 [facility] [address] [place] [address] [phone] iSTAT HCT 33.0 % Low 38.0-51.0 iSTAT Glucose 89 mg/dL Normal 70-105 iSTAT Sodium 140 mEq/L Normal 136-145 iSTAT Potassium 3.9 mEq/L Normal 3.5-5.1 iSTAT CA++ 4.2 mg/dL Low 4.5-5.3 iSTAT Chloride 100 mEq/L Normal 98-109 iSTAT Co2 24.0 MM/L Normal 23.0-27.0 iSTAT BUN 41 mg/dL High 8-26 iSTAT Creatinine 4.4 mg/dL High 0.6-1.3 CBC With Differential 05/07/2021 [facility] [address] [place] [address] [phone] White Blood Count 6.9 10 Normal 4.0-10.0 [...] 36.0-66.0 Lymph % 5.7 % Low 24.0-44.0 [place] % 5.1 % Normal 2.0-8.0 Eos % 3.6 % High 0.0-3.0 Baso % 0.3 % Normal 0.0-1.0 Immature Granulocyte % 2.6 % Normal 0-3.0 Nucleated Red Blood Cell % 0.0 % Normal 0-0 Neutrophils # 5.7 10 Normal 1.5-8.5 Lymph # 0.4 10 Low 1.5-5.0 [place] # 0.4 10 Normal 0.0-0.8 Eos # 0.3 10 Normal 0.0-0.5 Baso # 0.0 10 Normal 0.0-0.2 Laboratory test finding 05/07/2021 [facility] [address] [place] [address] [phone] Ammonia < 10 uMOL/L Normal <32 Liver Profile 05/07/2021 [facility] [address] [place] [address] [phone] Ast/Sgot 70 U/L High 7-37 Alt/SGPT 69 U/L Normal 12-78 Alkaline Phosphatase 84 U/L Normal 45-117 Bilirubin,Total 0.5 mg/dL Normal 0.2-1.0 Bilirubin,Direct 0.2 mg/dL Normal 0.0-0.2 Total Protein 5.3 GM/DL Low 6.4-8.2 Albumin 2.4 GM/DL Low 3.2-5.2 Albumin/Globulin Ratio 0.8 Normal Basic Metabolic Profile 05/07/2021 [place] [address] [place] [address] [phone] Glucose, Fasting 90 mg/dL Normal 70-100 Blood [...] mg/dL Low 8.8-10.2 Laboratory test finding 05/07/[address] [address] [phone] Thyroid Stimulating Hormone 0.505 uIU/ML Normal 0. 358-3.740 Influenza A/B RSV Covid Amp 05/07/[address] [address] [phone] Influenza A Amplification NEGATIVE Normal Negati ve 20 Influenza B Amplification NEGATIVE Normal Negative 21 RSV Amplification NEGATIVE Normal Negative 22 Sars Covid-19 Amplification NEGATIVE Normal Negative 23 Cardiac Marker Panel 04/27/2021 [facility] [address] [place] [address] [phone] CPK Creatine Phosphokinase 850 U/L High 39-30 8 CK-MB Value Mass 7.7 NG/ML High <3.6 MB/CK Relative Index 0.91 Normal < Or =4 24 Troponin I 1.15 NG/ML High < 0.10 25 Complete Blood Count 04/01/2021 [facility] [address] [place] [address] [phone] White Blood Count 9.4 10 Normal 4.0-10.0 [...] 0.0 % Normal 0-0 Prothrombin Time/Inr 04/01/2021 [facility] [address] [place] [address] [phone] Prothrombin Time 13.7 seconds Normal 12.5-14.3 Inr [...] LITTLE GFR LEFT ESRD GFR <15 ON CONSERVATION SCIENCE OFFICER 5 NOTE: CBC VERIFIED 6 CRITICAL: CBC VERIFIED 7 100-125 mg/dL PRE-DIABET ES/FASTING >126 mg/dL DIABETES/FASTING 8 NOTE: BUN,CREAT VERIFIED 9 CHRONIC KIDNEY DISEASE STAGI NG PER NKF STAGE I & II GFR >= 60 NORMAL TO MILDLY DECREASED STAGE III GFR 30-59 MODERATELY DECREASED STAGE IV GFR 15-29 SEVERELY DECREASED STAGE V GFR <15 VERY LITTLE GFR LEFT ESRD GFR <15 ON CONSERVATION SCIENCE OFFICER 10 Units are mL/min/1.73 m2 Chronic Kidney Disease Staging per NKF: Stage I & II GFR >=60 Normal to Mildly Decreased Stage III GFR 30-59 Moderately Decreased Stage IV GFR 15-29 Severely Decreased Stage V GFR <15 Very Little GFR Left ESRD GFR <15 on CONSERVATION SCIENCE OFFICER 11 DIAGNOSIS CRITERIA MMB ng/ml Relative Index (RI) NON-AMI < or = 5 N/A [place] ZONE > 5 < or = 4 AMI > 5 > 4 12 Troponin I Reference Interva l for Siemens [place] LOCI: 99th Percentile= 0.00-0.045 ng/ml Risk Stratification: [...] pathogens. DISCLAIMER: Testing was performed using the [employer] SARS-CoV-2 test. This test was developed and its performance characteristics determined by [employer] This test has not been FDA cleared [...] Troponin I Reference Interva l for Siemens [place] LOCI: 99th Percentile= 0.00-0.045 ng/ml Risk Stratification: [...] Little GFR Left ESRD GFR <15 on CONSERVATION SCIENCE OFFICER 20 Negative results do not prec lude [...] pathogens. DISCLAIMER: Testing was performed using the [employer] SARS-CoV-2 test. This test was developed and its performance characteristics determined by [employer] This test has not been FDA cleared [...] Troponin I Reference Interva l for Siemens [place] LOCI: 99th Percentile= 0.00-0.045 ng/ml Risk Stratification: [...] 2.5-3.5 Procedures Date Code Description Status 06/17/2021 35872 Office/Outpatient Established Mo d MDM 30-39 Min Completed 07/18/2018 [id number] Diabetic Retinal Eye Exam [facility] 01/25/2017 [id number] Diabetic Foot Exam Completed 01/21/2017 [id number] Diabetic Foot Exam Completed 04/14/2006 [id number] Bone Mineral Density Test [facility] Medical Devices Description No Information Available Encounters Type Date Location Provider Dx Diagnosis Office Visit 06/17/2021 10:[facility]a [facility] [place] R26.89 Other abnormalities of gait and mobility N17.9 Acute kidney failure, unspec ified I12.9 Hypertensive chronic kidney disease w stg 1-4/unsp chr kdny N18.4 Chronic kidney disease, stag e 4 (severe) I73.9 Peripheral vascular disease, unspecified I48.91 Unspecified atrial fibrillat ion I48.92 Unspecified atrial flutter Z79.01 penitentiary (current) use of a nticoagulants E11.40 Type [...] atrial flutter WIL[facility] Nava JR 06/17/2021 Z79.01 ham smoker (current) use of antic oagulants WILVER Nunez JR 06/17/2021 E11.40 Type 2 diabetes kaye itus with diabetic neuropathy, unspecified WILVER Nunez JR 06/17/2021 I25.10 Atherosclerotic heart disease of [place] coronary artery with WILVER Nunez JR 06/17/2021 [...]
--- OUTSIDE RECORDS SUMMARY | 2021-09-03 11:54 | CCD | Continuity of Care Document ---
Author Author Lab Schedule, Raúl Hale Organization Unknown Address [address] [address] Phone Unavailable Care Team Providers Care Production Supervisor Off Shift Name Role Phone Eduardo Sandoval MD AUTM [phone] [facility] Hea AUTM [phone] Problems Active Problems Provider Date Chronic diastolic [...] CPT Code Status Date Vaccine Lot # [id number] Given 08/13/2020 Influenza Vaccin e Quadrivalent Preser/Antibiotic Free Im Use [id number] 82838 Given 03/13/2015 Prevnar 13 [id number] Given 04/21/2011 Pneumovax 23 05208 Given 09/05/2008 Influenza Virus Vaccine 90282 Refused 08/31/2017 Influenza Vaccin e Quadrivalent Preser/Antibiotic Free Im Use Vital Signs Date Vital Result Comment 06/17/2021 10:24am BP Systolic 102 mmHg BP Diastolic 50 mmHg Heart Rate 62 /min Height 68 inches 5'8" Weight 157.00 lb BMI (Body Mass Index) 23.9 kg/m2 08/13/2020 10:44am BP Systolic 118 mmHg BP Diastolic 72 mmHg Heart Rate 70 /min Height 68 inches 5'8" Weight 187.00 lb BMI (Body Mass Index) 28.4 kg/m2 Results Test Acquired Date Facility Test Result H/L Range Note A1c 07/01/2021 [facility] , Manager Consumer Insights: [place] [address] [phone] Hba1c 5.5 % <5.7 1 Est Avg Glucose 111 mg/dL High 60 - 110 Comprehensive Chem Profile 07/01/2021 [facility], dhiraj Manager Consumer Insights: [place] [address] [phone] Glucose 104 mg/dL High 74 - 99 [...] mL/min Low >60 4 Lipid Profile 07/01/2021 [facility] , Manager Consumer Insights: [place] [address] [phone] Cholesterol 184 mg/dL 131 - 200 Triglycerides 146 mg/dL 30 - 150 HDL Cholesterol 80 mg/dL High 35 - 60 LDL (Calculated) 75 CALC 50 - 159 Laboratory test finding 07/01/2021 [facility], [facility] Manager Consumer Insights: Dr [place] [id number] [phone] Thyroid Stimulating Hormone 0.88 uIU/mL 0.3 6 - 3.74 Complete Blood Count 07/01/2021 [facility] pc Manager Consumer Insights: Dr Laith Silveira [place] [id number] [phone] WBC 13.6 x10*3/UL High 4.1 - 10.9 [...] 2.0 - 7.8 Complete Blood Count 06/17/2021 [facility] Manager Consumer Insights: [place] [address] [phone] WBC 11.2 x10*3/UL High 4.1 - 10.9 [...] 2.0 - 7.8 Basic Metabolic Panel 06/17/2021 [facility] Manager Consumer Insights: Dr Laith Silveira [place], [place] [address] [phone] Glucose 149 mg/dL High 74 - 99 [...] Low >60 9 Laboratory test finding 06/17/2021 [facility] Manager Consumer Insights: [place] [address] [phone] Thyroid Stimulating Hormone 2.97 uIU/mL 0.3 6 - 3.74 Laboratory test finding 05/22/[address] [address] [phone] Thyroid Stimulating Hormone 1.940 uIU/ML Normal 0. 358-3.740 Free T4 0.90 ng/dL Normal 0.76-1.46 Laboratory test finding 05/22/2021 [facility] [address] [place] [address] [phone] Platelet Estimate DECREASED Normal Normal Differential 05/22/2021 [facility] nter [address] [place] [address] [phone] Neutrophils 64 % Normal 28-66 Bands 12 % High < 11 Lymphocytes 11 % Low 16-44 Monocytes 9 % High 0-5 Basophils 1 % Normal 0-1 Metamyelocytes 1 % High 0-0 Myelocytes 2 % High 0-0 CBC With Differential 05/22/2021 [place] [address] [place] [address] [phone] White Blood Count 8.4 10 Normal 4.0-10.0 [...] % High 0-0 Basic Metabolic Profile 05/22/[address] [address] [phone] Glucose, Fasting 94 mg/dL Normal 70-100 Blood [...] 7.9 mg/dL Low 8.8-10.2 Liver Profile 05/22/2021 [facility] nter [address] [place], [place] [address]012 [phone] Ast/Sgot 29 U/L Normal 7-37 Alt/SGPT 53 U/L Normal 12-78 Alkaline Phosphatase 131 U/L High 45-117 Bilirubin,Total 0.4 mg/dL Normal 0.2-1.0 Bilirubin,Direct 0.2 mg/dL Normal 0.0-0.2 Total Protein 5.8 GM/DL Low 6.4-8.2 Albumin 2.6 GM/DL Low 3.2-5.2 Albumin/Globulin Ratio 0.8 Normal Cardiac Marker Panel 05/22/2021 [facility] [address] [place] [address] [phone] CPK Creatine Phosphokinase 58 U/L Normal 39-30 8 CK-MB Value Mass 3.1 NG/ML Normal <3.6 MB/CK Relative Index 5.34 High < Or =4 11 Troponin I 0.14 NG/ML High < 0.10 12 Influenza A/B RSV Covid Amp 05/22/2021 [facility] [address] [place] [address] [phone] Influenza A Amplification NEGATIVE Normal Negati ve 13 Influenza B Amplification NEGATIVE Normal Negative 14 RSV Amplification NEGATIVE Normal Negative 15 Sars Covid-19 Amplification NEGATIVE Normal Negative 16 Laboratory test finding 05/22/2021 [facility] [address] [place] [address] [phone] C Reactive Protein Quantitativ 10.10 mg/dL High 0.00-0.30 Cardiac Marker Panel 05/22/2021 [facility] enter [address] [place] [address] [phone] CPK Creatine Phosphokinase 55 U/L Normal 39-30 8 CK-MB Value Mass 3.2 NG/ML Normal <3.6 MB/CK Relative Index 5.82 High < Or =4 17 Troponin I 0.13 NG/ML High < 0.10 18 Laboratory test finding 05/07/2021 [facility] [address] [place] [address] [phone] iSTAT Troponin 0.10 NG/ML High 0.00-0.08 Istat Chem8+ Panel 05/07/2021 [facility] nter [address] [place] [address] [phone] iSTAT HCT 33.0 % Low 38.0-51.0 iSTAT Glucose 89 mg/dL Normal 70-105 iSTAT Sodium 140 mEq/L Normal 136-145 iSTAT Potassium 3.9 mEq/L Normal 3.5-5.1 iSTAT CA++ 4.2 mg/dL Low 4.5-5.3 iSTAT Chloride 100 mEq/L Normal 98-109 iSTAT Co2 24.0 MM/L Normal 23.0-27.0 iSTAT BUN 41 mg/dL High 8-26 iSTAT Creatinine 4.4 mg/dL High 0.6-1.3 CBC With Differential 05/07/2021 [facility] [address] [place] [address] [phone] White Blood Count 6.9 10 Normal 4.0-10.0 [...] 36.0-66.0 Lymph % 5.7 % Low 24.0-44.0 [place] % 5.1 % Normal 2.0-8.0 Eos % 3.6 % High 0.0-3.0 Baso % 0.3 % Normal 0.0-1.0 Immature Granulocyte % 2.6 % Normal 0-3.0 Nucleated Red Blood Cell % 0.0 % Normal 0-0 Neutrophils # 5.7 10 Normal 1.5-8.5 Lymph # 0.4 10 Low 1.5-5.0 [place] # 0.4 10 Normal 0.0-0.8 Eos # 0.3 10 Normal 0.0-0.5 Baso # 0.0 10 Normal 0.0-0.2 Laboratory test finding 05/07/2021 [facility] [address] [place] [address] [phone] Ammonia < 10 uMOL/L Normal <32 Liver Profile 05/07/2021 [facility] nter [address] [place] [address] [phone] Ast/Sgot 70 U/L High 7-37 Alt/SGPT 69 U/L Normal 12-78 Alkaline Phosphatase 84 U/L Normal 45-117 Bilirubin,Total 0.5 mg/dL Normal 0.2-1.0 Bilirubin,Direct 0.2 mg/dL Normal 0.0-0.2 Total Protein 5.3 GM/DL Low 6.4-8.2 Albumin 2.4 GM/DL Low 3.2-5.2 Albumin/Globulin Ratio 0.8 Normal Basic Metabolic Profile 05/07/[address] [address] [phone] Glucose, Fasting 90 mg/dL Normal 70-100 Blood [...] mg/dL Low 8.8-10.2 Laboratory test finding 05/07/[address] [address] [phone] Thyroid Stimulating Hormone 0.505 uIU/ML Normal 0. 358-3.740 Influenza A/B RSV Covid Amp 05/07/[address] [address] [phone] Influenza A Amplification NEGATIVE Normal Negati ve 20 Influenza B Amplification NEGATIVE Normal Negative 21 RSV Amplification NEGATIVE Normal Negative 22 Sars Covid-19 Amplification NEGATIVE Normal Negative 23 Cardiac Marker Panel 04/27/2021 [facility] enter [address] [place] [address] [phone] CPK Creatine Phosphokinase 850 U/L High 39-30 8 CK-MB Value Mass 7.7 NG/ML High <3.6 MB/CK Relative Index 0.91 Normal < Or =4 24 Troponin I 1.15 NG/ML High < 0.10 25 Complete Blood Count 04/01/2021 [facility] enter [address] [place] [address] [phone] White Blood Count 9.4 10 Normal 4.0-10.0 [...] 0.0 % Normal 0-0 Prothrombin Time/Inr 04/01/2021 [facility] enter [address] [place] [address] [phone] Prothrombin Time 13.7 seconds Normal 12.5-14.3 Inr [...] LITTLE GFR LEFT ESRD GFR <15 ON PROPERTY ADJUSTER 5 NOTE: CBC VERIFIED 6 CRITICAL: CBC VERIFIED 7 100-125 mg/dL PRE-DIABET ES/FASTING >126 mg/dL DIABETES/FASTING 8 NOTE: BUN,CREAT VERIFIED 9 CHRONIC KIDNEY DISEASE STAGI NG PER NKF STAGE I & II GFR >= 60 NORMAL TO MILDLY DECREASED STAGE III GFR 30-59 MODERATELY DECREASED STAGE IV GFR 15-29 SEVERELY DECREASED STAGE V GFR <15 VERY LITTLE GFR LEFT ESRD GFR <15 ON PROPERTY ADJUSTER 10 Units are mL/min/1.73 m2 Chronic Kidney Disease Staging per NKF: Stage I & II GFR >=60 Normal to Mildly Decreased Stage III GFR 30-59 Moderately Decreased Stage IV GFR 15-29 Severely Decreased Stage V GFR <15 Very Little GFR Left ESRD GFR <15 on PROPERTY ADJUSTER 11 DIAGNOSIS CRITERIA MMB ng/ml Relative Index (RI) NON-AMI < or = 5 N/A [place] ZONE > 5 < or = 4 AMI > 5 > 4 12 Troponin I Reference Interva l for Siemens [place] LOCI: 99th Percentile= 0.00-0.045 ng/ml Risk Stratification: [...] pathogens. DISCLAIMER: Testing was performed using the [employer] SARS-CoV-2 test. This test was developed and its performance characteristics determined by [employer]. This test has not been FDA cleared [...] Troponin I Reference Interva l for Siemens [place] LOCI: 99th Percentile= 0.00-0.045 ng/ml Risk Stratification: [...] Little GFR Left ESRD GFR <15 on PROPERTY ADJUSTER 20 Negative results do not prec lude [...] pathogens. DISCLAIMER: Testing was performed using the [employer] SARS-CoV-2 test. This test was developed and its performance characteristics determined by [employer]. This test has not been FDA cleared [...] Troponin I Reference Interva l for [employer] [place] LOCI: 99th Percentile= 0.00-0.045 ng/ml Risk Stratification: [...] 2.5-3.5 Procedures Date Code Description Status 06/17/2021 52832 Office/Outpatient Established Mo d MDM 30-39 Min Completed 07/18/2018 [id number] Diabetic Retinal Eye Exam [facility] 01/25/2017 [id number] Diabetic Foot Exam Completed 01/21/2017 [id number] Diabetic Foot Exam Completed 04/14/2006 [id number] Bone Mineral Density Test [facility] Medical Devices Description No Information Available Encounters Type Date Location Provider Dx Diagnosis Office Visit 06/17/2021 10:20a [facility] [place] R26.89 Other [...] JR 06/17/2021 I48.91 Unspecified atrial fibrillation WILVER uNnez JR 06/17/2021 I48.92 Unspecified atrial flutter WILVER Nava JR 06/17/2021 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 WILVER Nunez JR 06/17/2021 E11.40 Type 2 diabetes kaye itus with diabetic neuropathy, unspecified WILVER Nunez JR 06/17/2021 I25.10 Atherosclerotic heart disease of [place] coronary artery with WILVER Nunez JR 06/17/2021 E03.9 Hypothyroidism, unspecified WILVER Latif JR 06/17/2021 D64.9 Anemia, unspecified WILVER Constantino JR 06/17/2021 J44.9 Chronic obstructive pulmonary di sease, unspecified WILVER Nunez JR Plan of Treatment 06/17/2021 - WILVER Nunez JR* R26.89 Other abnormalities of gait and mobility * N17.9 Acute kidney failure, unspecified * I12.9 Hypertensive chronic kidney disease with stage 1 through stage 4 chronic kidney disease, or unspecified chronic kidney disease * N18.4 Chronic kidney disease, stage 4 (severe) * I73.9 Peripheral vascular disease, unspecified * I48.91 Unspecified atrial fibrillation * I48.92 Unspecified atrial flutter * 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 * E11.40 Type 2 diabetes mellitus with diabetic neuropathy, unspecified * I25.10 Atherosclerotic heart disease of [place] coronary artery with * E03.9 Hypothyroidism, unspecified * D64.9 Anemia, unspecified * J44.9 Chronic obstructive pulmonary disease, unspecified * All * New Medication:* Eliquis 2.5 mg - 1 by mouth twice a day * Atorvastatin Calcium 20 mg - 1 by mouth every day * Vitamin B-12 1000 mcg - 1 by mouth every day * Folic Acid 1 mg - 1 by mouth every day * Gabapentin 100 mg - take two capsule by mouth at bedtime * Metoprolol Tartrate 25 mg - 1/2 by mouth twice a day * Prednisone 10 mg - 4 by mouth daily for 3 days then 3 daily for 3 days then 2 daily for 3 days then 1 daily for 3 days and stop. * Vitamin B-1 100 mg - take one capsule by mouth once a month * Ramelteon 8 mg - one at bedtime daily as needed for sleep * Comments:* Total time spent with patient was [address] Sandoval to be updated on patient's condition. Return to clinic as scheduled or sooner if needed. Patient and verbalize understanding and agreement with current plan. All questions answered to the best of my knowledge. Functional Status Description No Information Available Mental Status Description No Information Available Referrals Description No Information Available
--- OUTSIDE RECORDS SUMMARY | 2021-09-03 11:54 | CCD | Continuity of Care Document ---
Author Author Raúl BURCIAGA M.D. Organization Unknown Address [address] [facility] [address] [place] [address] Phone [phone] Care Team Providers Care Visual Merchandising Assistant Name Role Phone Eduardo Burciaga MD AUTM [phone] [facility] AUTM [phone] Problems Active Problems Provider Date Chronic diastolic [...] one capsule by mouth every day 90caps Edurado Burciaga M.D. 08/31/2017 Levothyroxine Sodium 88mcg Tablets 1 by mouth every day 90tabs Eduardo Burciaga M.D. 08/02/2016 Medications Administered in Office Medication SIG Qnty Indications Ordering Provider Date Immunization Adminstration,1 Vaccine/Tox oid Injection Eduardo Burciaga M.D. 020 Depo-Medrol Injection Injection Kimberly Noble D.O. 04/07/2006 Immunizations CPT Code Status Date Vaccine Lot # [id number] Given 08/13/2020 Influenza Vaccin e Quadrivalent Preser/Antibiotic Free Im Use [id number] Given 03/13/2015 Prevnar 13 [id number] Given 04/21/2011 Pneumovax 23 23956 Given 09/05/2008 Influenza Virus Vaccine [id number] Refused 08/31/2017 Influenza Vaccin e Quadrivalent Preser/Antibiotic [...] Test Result H/L Range Note A1c 07/01/2021 [facility] Cna Gna: Dr Laith [place] [address] [phone] Hba1c 5.5 % <5.7 1 Est Avg Glucose 111 mg/dL High 60 - 110 Comprehensive Chem Profile 07/01/2021 [facility] Cna Gna: Dr Laith [place] [address] [phone] Glucose 104 mg/dL High 74 - 99 [...] mL/min Low >60 4 Lipid Profile 07/01/2021 [facility] Cna Gna: [place] [address] [phone] Cholesterol 184 mg/dL 131 - 200 Triglycerides 146 mg/dL 30 - 150 HDL Cholesterol 80 mg/dL High 35 - 60 LDL (Calculated) 75 CALC 50 - 159 Laboratory test finding 07/01/2021 [facility] Cna Gna: Dr Laith Silveira [place], [place] [id number] [phone] Thyroid Stimulating Hormone 0.88 uIU/mL 0.3 6 - 3.74 Complete Blood Count 07/01/2021 [facility] Cna Gna: Dr Laith Silveira [place], [place] [id number] [phone] WBC 13.6 x10*3/UL High 4.1 - 10.9 [...] 2.0 - 7.8 Complete Blood Count 06/17/2021 [facility] Cna Gna: [place] [address] [phone] WBC 11.2 x10*3/UL High 4.1 - 10.9 [...] 2.0 - 7.8 Basic Metabolic Panel 06/17/2021 [facility] Cna Gna: Dr Laith Silveira [place], [place] [id number] [phone] Glucose 149 mg/dL High 74 - 99 [...] Low >60 9 Laboratory test finding 06/17/2021 [facility] Cna Gna: [place] [address] [phone] Thyroid Stimulating Hormone 2.97 uIU/mL 0.3 6 - 3.74 Laboratory test finding 05/22/2021 [place] [id number] [phone] Thyroid Stimulating Hormone 1.940 uIU/ML Normal 0. 358-3.740 Free T4 0.90 ng/dL Normal 0.76-1.46 Laboratory test finding 05/22/2021 [facility] [address] [id number] [phone] Platelet Estimate DECREASED Normal Normal Differential 05/22/2021 [facility] nter [address] [place] [address] [phone] Neutrophils 64 % Normal 28-66 Bands 12 % High < 11 Lymphocytes 11 % Low 16-44 Monocytes 9 % High 0-5 Basophils 1 % Normal 0-1 Metamyelocytes 1 % High 0-0 Myelocytes 2 % High 0-0 CBC With Differential 05/22/[address] [address] [phone] White Blood Count 8.4 10 Normal 4.0-10.0 [...] % High 0-0 Basic Metabolic Profile 05/22/[address] [address] [phone] Glucose, Fasting 94 mg/dL Normal 70-100 Blood [...] 7.9 mg/dL Low 8.8-10.2 Liver Profile 05/22/2021 [facility] nter [address] [place] [address] [phone] Ast/Sgot 29 U/L Normal 7-37 Alt/SGPT 53 U/L Normal 12-78 Alkaline Phosphatase 131 U/L High 45-117 Bilirubin,Total 0.4 mg/dL Normal 0.2-1.0 Bilirubin,Direct 0.2 mg/dL Normal 0.0-0.2 Total Protein 5.8 GM/DL Low 6.4-8.2 Albumin 2.6 GM/DL Low 3.2-5.2 Albumin/Globulin Ratio 0.8 Normal Cardiac Marker Panel 05/22/2021 [facility] enter [address] [place] [address] [phone] CPK Creatine Phosphokinase 58 U/L Normal 39-30 8 CK-MB Value Mass 3.1 NG/ML Normal <3.6 MB/CK Relative Index 5.34 High < Or =4 11 Troponin I 0.14 NG/ML High < 0.10 12 Influenza A/B RSV Covid Amp 05/22/2021 [facility] [address] [place], [place] [id number] [phone] Influenza A Amplification NEGATIVE Normal Negati ve 13 Influenza B Amplification NEGATIVE Normal Negative 14 RSV Amplification NEGATIVE Normal Negative 15 Sars Covid-19 Amplification NEGATIVE Normal Negative 16 Laboratory test finding 05/22/2021 [facility] [address] [place] [address] [phone] C Reactive Protein Quantitativ 10.10 mg/dL High 0.00-0.30 Cardiac Marker Panel 05/22/2021 [facility] enter [address] [place] [address] [phone] CPK Creatine Phosphokinase 55 U/L Normal 39-30 8 CK-MB Value Mass 3.2 NG/ML Normal <3.6 MB/CK Relative Index 5.82 High < Or =4 17 Troponin I 0.13 NG/ML High < 0.10 18 Laboratory test finding 05/07/2021 [facility] [address] [place] [address] [phone] iSTAT Troponin 0.10 NG/ML High 0.00-0.08 Istat Chem8+ Panel 05/07/2021 [facility] nter [address] [place] [address] [phone] iSTAT HCT 33.0 % Low 38.0-51.0 iSTAT Glucose 89 mg/dL Normal 70-105 iSTAT Sodium 140 mEq/L Normal 136-145 iSTAT Potassium 3.9 mEq/L Normal 3.5-5.1 iSTAT CA++ 4.2 mg/dL Low 4.5-5.3 iSTAT Chloride 100 mEq/L Normal 98-109 iSTAT Co2 24.0 MM/L Normal 23.0-27.0 iSTAT BUN 41 mg/dL High 8-26 iSTAT Creatinine 4.4 mg/dL High 0.6-1.3 CBC With Differential 05/07/2021 [facility] [address] [place] [address] [phone] White Blood Count 6.9 10 Normal 4.0-10.0 [...] 36.0-66.0 Lymph % 5.7 % Low 24.0-44.0 [place] % 5.1 % Normal 2.0-8.0 Eos % 3.6 % High 0.0-3.0 Baso % 0.3 % Normal 0.0-1.0 Immature Granulocyte % 2.6 % Normal 0-3.0 Nucleated Red Blood Cell % 0.0 % Normal 0-0 Neutrophils # 5.7 10 Normal 1.5-8.5 Lymph # 0.4 10 Low 1.5-5.0 [place] # 0.4 10 Normal 0.0-0.8 Eos # 0.3 10 Normal 0.0-0.5 Baso # 0.0 10 Normal 0.0-0.2 Laboratory test finding 05/07/2021 [facility] [address] [place] [address] [phone] Ammonia < 10 uMOL/L Normal <32 Liver Profile 05/07/2021 [facility] nter [address] [place] [address] [phone] Ast/Sgot 70 U/L High 7-37 Alt/SGPT 69 U/L Normal 12-78 Alkaline Phosphatase 84 U/L Normal 45-117 Bilirubin,Total 0.5 mg/dL Normal 0.2-1.0 Bilirubin,Direct 0.2 mg/dL Normal 0.0-0.2 Total Protein 5.3 GM/DL Low 6.4-8.2 Albumin 2.4 GM/DL Low 3.2-5.2 Albumin/Globulin Ratio 0.8 Normal Basic Metabolic Profile 05/07/2021 [place] [address] [place] [address] [phone] Glucose, Fasting 90 mg/dL Normal 70-100 Blood [...] mg/dL Low 8.8-10.2 Laboratory test finding 05/07/[address] [address] [phone] Thyroid Stimulating Hormone 0.505 uIU/ML Normal 0. 358-3.740 Influenza A/B RSV Covid Amp 05/07/[address] [address] [phone] Influenza A Amplification NEGATIVE Normal Negati ve 20 Influenza B Amplification NEGATIVE Normal Negative 21 RSV Amplification NEGATIVE Normal Negative 22 Sars Covid-19 Amplification NEGATIVE Normal Negative 23 Cardiac Marker Panel 04/27/2021 [facility] enter [address] [place] [address] [phone] CPK Creatine Phosphokinase 850 U/L High 39-30 8 CK-MB Value Mass 7.7 NG/ML High <3.6 MB/CK Relative Index 0.91 Normal < Or =4 24 Troponin I 1.15 NG/ML High < 0.10 25 Complete Blood Count 04/01/2021 [facility] enter [address] [place] [address] [phone] White Blood Count 9.4 10 Normal 4.0-10.0 [...] 0.0 % Normal 0-0 Prothrombin Time/Inr 04/01/2021 [facility] enter [address] [place] [address] [phone] Prothrombin Time 13.7 seconds Normal 12.5-14.3 Inr [...] LITTLE GFR LEFT ESRD GFR <15 ON METAL COATER 5 NOTE: CBC VERIFIED 6 CRITICAL: CBC VERIFIED 7 100-125 mg/dL PRE-DIABET ES/FASTING >126 mg/dL DIABETES/FASTING 8 NOTE: BUN,CREAT VERIFIED 9 CHRONIC KIDNEY DISEASE STAGI NG PER NKF STAGE I & II GFR >= 60 NORMAL TO MILDLY DECREASED STAGE III GFR 30-59 MODERATELY DECREASED STAGE IV GFR 15-29 SEVERELY DECREASED STAGE V GFR <15 VERY LITTLE GFR LEFT ESRD GFR <15 ON METAL COATER 10 Units are mL/min/1.73 m2 Chronic Kidney Disease Staging per NKF: Stage I & II GFR >=60 Normal to Mildly Decreased Stage III GFR 30-59 Moderately Decreased Stage IV GFR 15-29 Severely Decreased Stage V GFR <15 Very Little GFR Left ESRD GFR <15 on METAL COATER 11 DIAGNOSIS CRITERIA MMB ng/ml Relative Index (RI) NON-AMI < or = 5 N/A [place] ZONE > 5 < or = 4 AMI > 5 > 4 12 Troponin I Reference Interva l for Siemens [place] LOCI: 99th Percentile= 0.00-0.045 ng/ml Risk Stratification: [...] pathogens. DISCLAIMER: Testing was performed using the [employer] SARS-CoV-2 test. This test was developed and its performance characteristics determined by [employer]. This test has not been FDA cleared [...] Troponin I Reference Interva l for Siemens [place] LOCI: 99th Percentile= 0.00-0.045 ng/ml Risk Stratification: [...] Little GFR Left ESRD GFR <15 on METAL COATER 20 Negative results do not prec lude [...] pathogens. DISCLAIMER: Testing was performed using the [employer] SARS-CoV-2 test. This test was developed and its performance characteristics determined by [facility]. This test has not been FDA cleared [...] Troponin I Reference Interva l for Siemens [place] LOCI: 99th Percentile= 0.00-0.045 ng/ml Risk Stratification: [...] 2.5-3.5 Procedures Date Code Description Status 06/17/2021 [address] Office/Outpatient Established Mo d MDM 30-39 Min Completed 07/18/2018 [id number] Diabetic Retinal Eye Exam Comple [facility] 01/25/2017 [id number] Diabetic Foot Exam Completed 01/21/2017 [id number] Diabetic Foot Exam Completed 04/14/2006 [id number] Bone Mineral Density Test Comple [facility] Medical Devices Description No Information Available Encounters Type Date Location Provider Dx Diagnosis Office Visit 06/17/2021 10:20a [facility] R26.89 Other abnormalities of gait and mobility N17.9 Acute kidney failure, unspec ified I12.9 Hypertensive chronic kidney disease w stg 1-4/unsp chr kdny N18.4 Chronic kidney disease, stag e 4 (severe) I73.9 Peripheral vascular disease, unspecified I48.91 Unspecified atrial fibrillat ion I48.92 Unspecified atrial flutter Z79.01 FPC (current) use of a nticoagulants E11.40 Type [...] atrial flutter WILVER Nava JR 06/17/2021 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
--- OUTSIDE RECORDS SUMMARY | 2021-09-03 11:54 | CCD | Continuity of Care Document ---
Author Author Raúl BURCIAGA M.D. Organization Unknown Address [address] [facility] [address] [place] [address] Phone [phone] Care Team Providers Care Card Runner Name Role Phone Eduardo Burciaga MD AUTM [phone] [facility] AUTM [phone] Problems Active Problems Provider Date Chronic diastolic [...] CPT Code Status Date Vaccine Lot # [id number] Given 08/13/2020 Influenza Vaccin e Quadrivalent Preser/Antibiotic Free Im Use [id number] 96929 Given 03/13/2015 Prevnar 13 [id number] Given 04/21/2011 Pneumovax 23 96211 Given 09/05/2008 Influenza Virus Vaccine [id number] Refused 08/31/2017 Influenza Vaccin e Quadrivalent Preser/Antibiotic [...] Test Result H/L Range Note A1c 07/01/2021 [facility] Product Marketing Manager: [place] [address] [phone] Hba1c 5.5 % <5.7 1 Est Avg Glucose 111 mg/dL High 60 - 110 Comprehensive Chem Profile 07/01/2021 [facility] Product Marketing Manager: [place] [address] [phone] Glucose 104 mg/dL High 74 - 99 [...] mL/min Low >60 4 Lipid Profile 07/01/2021 [facility] Product Marketing Manager: [place] [address] [phone] Cholesterol 184 mg/dL 131 - 200 Triglycerides 146 mg/dL 30 - 150 HDL Cholesterol 80 mg/dL High 35 - 60 LDL (Calculated) 75 CALC 50 - 159 Laboratory test finding 07/01/2021 [facility] Product Marketing Manager: Dr Laith Silveira [place], [place] [address] [phone] Thyroid Stimulating Hormone 0.88 uIU/mL 0.3 6 - 3.74 Complete Blood Count 07/01/2021 [facility] Product Marketing Manager: Dr Laith Silveira [place], [place] [address]32 [phone] WBC 13.6 x10*3/UL High 4.1 - 10.9 [...] 2.0 - 7.8 Complete Blood Count 06/17/2021 [facility] Product Marketing Manager: [place] [address] [phone] WBC 11.2 x10*3/UL High 4.1 - 10.9 [...] 2.0 - 7.8 Basic Metabolic Panel 06/17/2021 [facility] Product Marketing Manager: Dr Laith Silveira [place], [place] [address] [phone] Glucose 149 mg/dL High 74 - 99 [...] Low >60 9 Laboratory test finding 06/17/2021 [facility] Product Marketing Manager: [place] [address] [phone] Thyroid Stimulating Hormone 2.97 uIU/mL 0.3 6 - 3.74 Laboratory test finding 05/22/2021 [place] [address]1531 [phone] Thyroid Stimulating Hormone 1.940 uIU/ML Normal 0. 358-3.740 Free T4 0.90 ng/dL Normal 0.76-1.46 Laboratory test finding 05/22/2021 [facility] [address] [address]01[address] [phone] Platelet Estimate DECREASED Normal Normal Differential 05/22/2021 [facility] nter [address] [place] [address] [phone] Neutrophils 64 % Normal 28-66 Bands 12 % High < 11 Lymphocytes 11 % Low 16-44 Monocytes 9 % High 0-5 Basophils 1 % Normal 0-1 Metamyelocytes 1 % High 0-0 Myelocytes 2 % High 0-0 CBC With Differential 05/22/[address] [address] [phone] White Blood Count 8.4 10 Normal 4.0-10.0 [...] % High 0-0 Basic Metabolic Profile 05/22/[address] [address] [phone] Glucose, Fasting 94 mg/dL Normal 70-100 Blood [...] 7.9 mg/dL Low 8.8-10.2 Liver Profile 05/22/2021 [facility] nter [address] [place] [address] [phone] Ast/Sgot 29 U/L Normal 7-37 Alt/SGPT 53 U/L Normal 12-78 Alkaline Phosphatase 131 U/L High 45-117 Bilirubin,Total 0.4 mg/dL Normal 0.2-1.0 Bilirubin,Direct 0.2 mg/dL Normal 0.0-0.2 Total Protein 5.8 GM/DL Low 6.4-8.2 Albumin 2.6 GM/DL Low 3.2-5.2 Albumin/Globulin Ratio 0.8 Normal Cardiac Marker Panel 05/22/2021 [facility] enter [address] [place] [address] [phone] CPK Creatine Phosphokinase 58 U/L Normal 39-30 8 CK-MB Value Mass 3.1 NG/ML Normal <3.6 MB/CK Relative Index 5.34 High < Or =4 11 Troponin I 0.14 NG/ML High < 0.10 12 Influenza A/B RSV Covid Amp 05/22/2021 [facility] [address] [place], [place] [address] [phone] Influenza A Amplification NEGATIVE Normal Negati ve 13 Influenza B Amplification NEGATIVE Normal Negative 14 RSV Amplification NEGATIVE Normal Negative 15 Sars Covid-19 Amplification NEGATIVE Normal Negative 16 Laboratory test finding 05/22/2021 [facility] [address] [place] [address] [phone] C Reactive Protein Quantitativ 10.10 mg/dL High 0.00-0.30 Cardiac Marker Panel 05/22/2021 [facility] enter [address] [place] [address] [phone] CPK Creatine Phosphokinase 55 U/L Normal 39-30 8 CK-MB Value Mass 3.2 NG/ML Normal <3.6 MB/CK Relative Index 5.82 High < Or =4 17 Troponin I 0.13 NG/ML High < 0.10 18 Laboratory test finding 05/07/2021 [facility] [address] [place] [address] [phone] iSTAT Troponin 0.10 NG/ML High 0.00-0.08 Istat Chem8+ Panel 05/07/2021 [facility] nter [address] [place] [address] [phone] iSTAT HCT 33.0 % Low 38.0-51.0 iSTAT Glucose 89 mg/dL Normal 70-105 iSTAT Sodium 140 mEq/L Normal 136-145 iSTAT Potassium 3.9 mEq/L Normal 3.5-5.1 iSTAT CA++ 4.2 mg/dL Low 4.5-5.3 iSTAT Chloride 100 mEq/L Normal 98-109 iSTAT Co2 24.0 MM/L Normal 23.0-27.0 iSTAT BUN 41 mg/dL High 8-26 iSTAT Creatinine 4.4 mg/dL High 0.6-1.3 CBC With Differential 05/07/2021 [facility] [address] [place] [address] [phone] White Blood Count 6.9 10 Normal 4.0-10.0 [...] 36.0-66.0 Lymph % 5.7 % Low 24.0-44.0 [place] % 5.1 % Normal 2.0-8.0 Eos % 3.6 % High 0.0-3.0 Baso % 0.3 % Normal 0.0-1.0 Immature Granulocyte % 2.6 % Normal 0-3.0 Nucleated Red Blood Cell % 0.0 % Normal 0-0 Neutrophils # 5.7 10 Normal 1.5-8.5 Lymph # 0.4 10 Low 1.5-5.0 [place] # 0.4 10 Normal 0.0-0.8 Eos # 0.3 10 Normal 0.0-0.5 Baso # 0.0 10 Normal 0.0-0.2 Laboratory test finding 05/07/2021 [facility] [address] [place] [address] [phone] Ammonia < 10 uMOL/L Normal <32 Liver Profile 05/07/2021 [facility] nter [address] [place] [address] [phone] Ast/Sgot 70 U/L High 7-37 Alt/SGPT 69 U/L Normal 12-78 Alkaline Phosphatase 84 U/L Normal 45-117 Bilirubin,Total 0.5 mg/dL Normal 0.2-1.0 Bilirubin,Direct 0.2 mg/dL Normal 0.0-0.2 Total Protein 5.3 GM/DL Low 6.4-8.2 Albumin 2.4 GM/DL Low 3.2-5.2 Albumin/Globulin Ratio 0.8 Normal Basic Metabolic Profile 05/07/2021 [place] [place] [address] [phone] Glucose, Fasting 90 mg/dL Normal 70-100 Blood [...] mg/dL Low 8.8-10.2 Laboratory test finding 05/07/[address] [address] [phone] Thyroid Stimulating Hormone 0.505 uIU/ML Normal 0. 358-3.740 Influenza A/B RSV Covid Amp 05/07/[address] [address] [phone] Influenza A Amplification NEGATIVE Normal Negati ve 20 Influenza B Amplification NEGATIVE Normal Negative 21 RSV Amplification NEGATIVE Normal Negative 22 Sars Covid-19 Amplification NEGATIVE Normal Negative 23 Cardiac Marker Panel 04/27/2021 [facility] enter [address] [place] [address] [phone] CPK Creatine Phosphokinase 850 U/L High 39-30 8 CK-MB Value Mass 7.7 NG/ML High <3.6 MB/CK Relative Index 0.91 Normal < Or =4 24 Troponin I 1.15 NG/ML High < 0.10 25 Complete Blood Count 04/01/2021 [facility] enter [address] [place] [address] [phone] White Blood Count 9.4 10 Normal 4.0-10.0 [...] 0.0 % Normal 0-0 Prothrombin Time/Inr 04/01/2021 [facility] enter [address] [place] [address] [phone] Prothrombin Time 13.7 seconds Normal 12.5-14.3 Inr [...] LITTLE GFR LEFT ESRD GFR <15 ON ELEMENTARY [employer]ER 5 NOTE: CBC VERIFIED 6 CRITICAL: CBC VERIFIED 7 100-125 mg/dL PRE-DIABET ES/FASTING >126 mg/dL DIABETES/FASTING 8 NOTE: BUN,CREAT VERIFIED 9 CHRONIC KIDNEY DISEASE STAGI NG PER NKF STAGE I & II GFR >= 60 NORMAL TO MILDLY DECREASED STAGE III GFR 30-59 MODERATELY DECREASED STAGE IV GFR 15-29 SEVERELY DECREASED STAGE V GFR <15 VERY LITTLE GFR LEFT ESRD GFR <15 ON ELEMENTARY [employer] 10 Units are mL/min/1.73 m2 Chronic Kidney Disease Staging per NKF: Stage I & II GFR >=60 Normal to Mildly Decreased Stage III GFR 30-59 Moderately Decreased Stage IV GFR 15-29 Severely Decreased Stage V GFR <15 Very Little GFR Left ESRD GFR <15 on ELEMENTARY [employer] 11 DIAGNOSIS CRITERIA MMB ng/ml Relative Index (RI) NON-AMI < or = 5 N/A [place] ZONE > 5 < or = 4 AMI > 5 > 4 12 Troponin I Reference Interva l for Siemens [place] LOCI: 99th Percentile= 0.00-0.045 ng/ml Risk Stratification: [...] Troponin I Reference Interva l for Siemens [place] LOCI: 99th Percentile= 0.00-0.045 ng/ml Risk Stratification: [...] Little GFR Left ESRD GFR <15 on ELEMENTARY [employer]ER 20 Negative results do not prec lude [...] Troponin I Reference Interva l for Siemens [place] LOCI: 99th Percentile= 0.00-0.045 ng/ml Risk Stratification: [...] 2.5-3.5 Procedures Date Code Description Status 06/17/2021 61007 Office/Outpatient Established Mo d MDM 30-39 Min Completed 07/18/2018 [id number] Diabetic Retinal Eye Exam Comple [facility] 01/25/2017 [id number] Diabetic Foot Exam Completed 01/21/2017 [id number] Diabetic Foot Exam Completed 04/14/2006 [id number] Bone Mineral Density Test Comple [facility] Medical Devices Description No Information Available Encounters Type Date Location Provider Dx Diagnosis Office Visit 06/17/2021 10:20a [facility] [place] R26.89 Other abnormalities of gait and mobility N17.9 Acute kidney failure, unspec ified I12.9 Hypertensive chronic kidney disease w stg 1-4/unsp chr kdny N18.4 Chronic kidney disease, stag e 4 (severe) I73.9 Peripheral vascular disease, unspecified I48.91 Unspecified atrial fibrillat ion I48.92 Unspecified atrial flutter Z79.01 snf (current) use of a nticoagulants E11.40 Type [...] atrial flutter WILVER Nava JR 06/17/2021 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
--- NOTE | 2021-09-03 11:55 | REP ---
INDICATION: weakness/dizziness. COMPARISON: Multiple the latest 08/12/2021 also portable TECHNIQUE: Portable FINDINGS: The technique utilized in obtaining the radiograph has magnified the cardiac silhouette and accentuated the interstitial markings. The cardiomediastinal silhouette is unchanged. There is cardiomegaly accentuated by technique. The lung wood are stable. There is evidence of basilar interstitial fibrotic change. No acute patchy parenchymal opacities or pleural effusions have developed. The tip of the central venous catheter is unchanged. There is no change in the osseous structures. IMPRESSION: Stable chest. Chronic changes as described above. <Electronically signed by Gilles Pimentel > 09/03/21 [id number]
--- OUTSIDE RECORDS SUMMARY | 2021-09-03 11:55 | CCD | Continuity of Care Document ---
Author Author Raúl PÉREZ Organization Unknown Address [address] [facility] [address] [place] [address] Phone [phone] Care Team Providers Care Traffic Signal Mechanic Name Role Phone Eduardo Sandoval MD AUTM [phone] [facility] AUTM [phone] Problems Active Problems Provider Date Chronic diastolic [...] every day 90tabs Eduardo Sandoval M.D. 08/02/2016 Medications Administered in Office Medication SIG Qnty Indications Ordering Provider Date Immunization Adminstration,1 Vaccine/Tox oid Injection Eduardo Sandoval M.D. 020 Depo-Medrol Injection Injection Kimberly Noble D.O. 04/07/2006 Immunizations CPT Code Status Date Vaccine Lot # [id number] Given 08/13/2020 Influenza Vaccin e Quadrivalent Preser/Antibiotic Free Im Use [id number] Given 03/13/2015 Prevnar 13 [id number] Given 04/21/2011 Pneumovax 23 [id number] Given 09/05/2008 Influenza Virus Vaccine [id number] Refused 08/31/2017 Influenza Vaccin e Quadrivalent Preser/Antibiotic [...] Date Facility Test Result H/L Range Note Basic Metabolic Panel 06/17/2021 [facility] Gas Leak Inspector Helper: [place] [address] [phone] Glucose 149 mg/dL High 74 - 99 1 BUN 27 mg/dL High 7 - 18 2 Creatinine 3.1 mg/dL High 0.6 - 1.3 Sodium 140 mEq/L 136 - 145 Potassium 3.8 mEq/L 3.5 - 5.1 Chloride 102 mEq/L 98 - 107 Carbon Dioxide 33 mEq/L High 21 - 32 Calcium 9.1 mg/dL 8.5 - 10.1 GFR 20 mL/min Low >60 GFR 24 mL/min Low >60 3 Laboratory test finding 06/17/2021 [facility] Gas Leak Inspector Helper: [place] [address] [phone] Thyroid Stimulating Hormone 2.97 uIU/mL 0.3 6 - 3.74 Complete Blood Count 06/17/2021 [facility] Gas Leak Inspector Helper: [place] [address] [phone] WBC 11.2 x10*3/UL High 4.1 - 10.9 4 RBC 4.02 x10*6/UL Low 4.20 - 6.30 [...] # 10.1 x10*3/UL High 2.0 - 7.8 Laboratory test finding 05/22/2021 [place] [id number] [phone] Platelet Estimate DECREASED Normal Normal Differential 05/22/2021 [facility] nter [address] [place] [address] [phone] Neutrophils 64 % Normal 28-66 Bands 12 % High < 11 Lymphocytes 11 % Low 16-44 Monocytes 9 % High 0-5 Basophils 1 % Normal 0-1 Metamyelocytes 1 % High 0-0 Myelocytes 2 % High 0-0 CBC With Differential 05/22/[address] [address] [phone] White Blood Count 8.4 10 Normal 4.0-10.0 [...] Blood Cell % 0.2 % High 0-0 Laboratory test finding 05/22/[address] [address] [phone] Thyroid Stimulating Hormone 1.940 uIU/ML Normal 0. 358-3.740 Free T4 0.90 ng/dL Normal 0.76-1.46 Basic Metabolic Profile 05/22/[address] [id number] [phone] Glucose, Fasting 94 mg/dL Normal 70-100 Blood Urea Nitrogen 28 mg/dL High 7-18 Creatinine For GFR 4.03 mg/dL High 0.70-1.30 Glomerular Filtration Rate 15.4 Low >42 5 Sodium Level 141 mEq/L Normal 136-145 Potassium Serum 3.8 mEq/L Normal 3.5-5.1 Chloride Level 102 mEq/L Normal 98-107 Carbon Dioxide Level 29 mEq/L Normal 21-32 Anion Gap 10 mEq/L Normal 8-16 Calcium Level 7.9 mg/dL Low 8.8-10.2 Liver Profile 05/22/2021 [facility] nter [address] [place] [address] [phone] Ast/Sgot 29 U/L Normal 7-37 Alt/SGPT 53 U/L Normal 12-78 Alkaline Phosphatase 131 U/L High 45-117 Bilirubin,Total 0.4 mg/dL Normal 0.2-1.0 Bilirubin,Direct 0.2 mg/dL Normal 0.0-0.2 Total Protein 5.8 GM/DL Low 6.4-8.2 Albumin 2.6 GM/DL Low 3.2-5.2 Albumin/Globulin Ratio 0.8 Normal Cardiac Marker Panel 05/22/2021 [facility] [address] [place] [address] [phone] CPK Creatine Phosphokinase 58 U/L Normal 39-30 8 CK-MB Value Mass 3.1 NG/ML Normal <3.6 MB/CK Relative Index 5.34 High < Or =4 6 Troponin I 0.14 NG/ML High < 0.10 7 Influenza A/B RSV Covid Amp 05/22/2021 [facility] [address] [place] [address] [phone] Influenza A Amplification NEGATIVE Normal Negati ve 8 Influenza B Amplification NEGATIVE Normal Negative 9 RSV Amplification NEGATIVE Normal Negative 10 Sars Covid-19 Amplification NEGATIVE Normal Negative 11 Laboratory test finding 05/22/2021 [facility] [address] [place] [address] [phone] C Reactive Protein Quantitativ 10.10 mg/dL High 0.00-0.30 Cardiac Marker Panel 05/22/2021 [facility] C enter [address] [place] [address] [phone] CPK Creatine Phosphokinase 55 U/L Normal 39-30 8 CK-MB Value Mass 3.2 NG/ML Normal <3.6 MB/CK Relative Index 5.82 High < Or =4 12 Troponin I 0.13 NG/ML High < 0.10 13 Laboratory test finding 05/07/2021 [facility] [address] [place] [address] [phone] iSTAT Troponin 0.10 NG/ML High 0.00-0.08 Istat Chem8+ Panel 05/07/2021 [facility] nter [address] [place] [address] [phone] iSTAT HCT 33.0 % Low 38.0-51.0 iSTAT Glucose 89 mg/dL Normal 70-105 iSTAT Sodium 140 mEq/L Normal 136-145 iSTAT Potassium 3.9 mEq/L Normal 3.5-5.1 iSTAT CA++ 4.2 mg/dL Low 4.5-5.3 iSTAT Chloride 100 mEq/L Normal 98-109 iSTAT Co2 24.0 MM/L Normal 23.0-27.0 iSTAT BUN 41 mg/dL High 8-26 iSTAT Creatinine 4.4 mg/dL High 0.6-1.3 CBC With Differential 05/07/[address] [address] [phone] White Blood Count 6.9 10 Normal 4.0-10.0 [...] 36.0-66.0 Lymph % 5.7 % Low 24.0-44.0 [place] % 5.1 % Normal 2.0-8.0 Eos % 3.6 % High 0.0-3.0 Baso % 0.3 % Normal 0.0-1.0 Immature Granulocyte % 2.6 % Normal 0-3.0 Nucleated Red Blood Cell % 0.0 % Normal 0-0 Neutrophils # 5.7 10 Normal 1.5-8.5 Lymph # 0.4 10 Low 1.5-5.0 [place] # 0.4 10 Normal 0.0-0.8 Eos # 0.3 10 Normal 0.0-0.5 Baso # 0.0 10 Normal 0.0-0.2 Laboratory test finding 05/07/2021 [place] [id number] [place] [address] [phone] Ammonia < 10 uMOL/L Normal <32 Liver Profile 05/07/2021 [facility] nter [address] [place] [address] [phone] Ast/Sgot 70 U/L High 7-37 Alt/SGPT 69 U/L Normal 12-78 Alkaline Phosphatase 84 U/L Normal 45-117 Bilirubin,Total 0.5 mg/dL Normal 0.2-1.0 Bilirubin,Direct 0.2 mg/dL Normal 0.0-0.2 Total Protein 5.3 GM/DL Low 6.4-8.2 Albumin 2.4 GM/DL Low 3.2-5.2 Albumin/Globulin Ratio 0.8 Normal Basic Metabolic Profile 05/07/[address] [address] [phone] Glucose, Fasting 90 mg/dL Normal 70-100 Blood Urea Nitrogen 41 mg/dL High 7-18 Creatinine For GFR 4.06 mg/dL High 0.70-1.30 Glomerular Filtration Rate 15.3 Low >42 1 4 Sodium Level 140 mEq/L Normal 136-145 Potassium Serum 3.9 mEq/L Normal 3.5-5.1 Chloride Level 106 mEq/L Normal 98-107 Carbon Dioxide Level 27 mEq/L Normal 21-32 Anion Gap 7 mEq/L Low 8-16 Calcium Level 7.4 mg/dL Low 8.8-10.2 Laboratory test finding 05/07/2021 [facility] [address] [place] [address] [phone] Thyroid Stimulating Hormone 0.505 uIU/ML Normal 0. 358-3.740 Influenza A/B RSV Covid Amp 05/07/2021 [facility] [address] [place] [address] [phone] Influenza A Amplification NEGATIVE Normal Negati ve 15 Influenza B Amplification NEGATIVE Normal Negative 16 RSV Amplification NEGATIVE Normal Negative 17 Sars Covid-19 Amplification NEGATIVE Normal Negative 18 Cardiac Marker Panel 04/27/2021 [facility] enter [address] [place] [address] [phone] CPK Creatine Phosphokinase 850 U/L High 39-30 8 CK-MB Value Mass 7.7 NG/ML High <3.6 MB/CK Relative Index 0.91 Normal < Or =4 19 Troponin I 1.15 NG/ML High < 0.10 20 Complete Blood Count 04/01/2021 [facility] enter [address] [place] [address] [phone] White Blood Count 9.4 10 Normal 4.0-10.0 [...] 0-0 Prothrombin Time/Inr 04/01/2021 [facility] enter [address] [place] [address] [phone] Prothrombin Time 13.7 seconds Normal 12.5-14.3 Inr 1.03 Normal 21 1 100-125 mg/dL PRE-DIABET ES/FASTING >126 mg/dL DIABETES/FASTING 2 NOTE: BUN,CREAT VERIFIED 3 CHRONIC KIDNEY DISEASE STAGI NG PER NKF STAGE I & II GFR >= 60 NORMAL TO MILDLY DECREASED STAGE III GFR 30-59 MODERATELY DECREASED STAGE IV GFR 15-29 SEVERELY DECREASED STAGE V GFR <15 VERY LITTLE GFR LEFT ESRD GFR <15 ON SOUND ENGINEER 4 CRITICAL: CBC VERIFIED 5 Units are mL/min/1.73 m2 Chronic Kidney Disease Staging per NKF: Stage I & II GFR >=60 Normal to Mildly Decreased Stage III GFR 30-59 Moderately Decreased Stage IV GFR 15-29 Severely Decreased Stage V GFR <15 Very Little GFR Left ESRD GFR <15 on SOUND ENGINEER 6 DIAGNOSIS CRITERIA MMB ng/ml Relative Index (RI) NON-AMI < or = 5 N/A [place] > 5 < or = 4 AMI > 5 > 4 7 Troponin I Reference Interva l for Progression LOCI: 99th Percentile= 0.00-0.045 ng/ml Risk Stratification: <= 0.10 ng/ml Decreased Risk for Adverse Clinical Events. 0.10-1.50 ng/ml Increased Risk for Adv erse Clinical Events. Evaluation of additional criterion and/or repeat testing in 2-6 hours is suggested to rule out myocardial damage. >= 1.50 ng/ml Indicative of Myocardial Injury. 8 Negative results do not prec lude influenza or RSV virus infection and should not be used as the sole basis for treatment or other patient management decisions. 9 Negative results do not prec lude influenza or RSV virus infection and should not be used as the sole basis for treatment or other patient management decisions. 10 Negative results do not prec lude influenza or RSV virus infection and should not be used as the sole basis for treatment or other patient management decisions. 11 A false negative result may occur if [...] pathogens. DISCLAIMER: Testing was performed using the [employer] SARS-CoV-2 test. This test was developed and its performance characteristics determined by [employer]. This test has not been FDA cleared [...] the authorization is terminated or revoked sooner. 12 DIAGNOSIS CRITERIA MMB ng/ml Relative Index (RI) NON-AMI < or = 5 N/A [place] > 5 < or = 4 AMI > 5 > 4 13 Troponin I Reference Interva l for [employer] Contur LOCI: 99th Percentile= 0.00-0.045 ng/ml Risk Stratification: <= 0.10 ng/ml Decreased Risk for Adverse Clinical Events. 0.10-1.50 ng/ml Increased Risk for Adv erse Clinical Events. Evaluation of additional criterion and/or repeat testing in 2-6 hours is suggested to rule out myocardial damage. >= 1.50 ng/ml Indicative of Myocardial Injury. 14 Units are mL/min/1.73 m2 Chronic Kidney Disease Staging per NKF: Stage I & II GFR >=60 Normal to Mildly Decreased Stage III GFR 30-59 Moderately Decreased Stage IV GFR 15-29 Severely Decreased Stage V GFR <15 Very Little GFR Left ESRD GFR <15 on SOUND ENGINEER 15 Negative results do not prec lude influenza or RSV virus infection and should not be used as the sole basis for treatment or other patient management decisions. 16 Negative results do not prec lude influenza or RSV virus infection and should not be used as the sole basis for treatment or other patient management decisions. 17 Negative results do not prec lude influenza or RSV virus infection and should not be used as the sole basis for treatment or other patient management decisions. 18 A false negative result may occur if [...] pathogens. DISCLAIMER: Testing was performed using the [employer] SARS-CoV-2 test. This test was developed and its performance characteristics determined by [employer]. This test has not been FDA cleared [...] the authorization is terminated or revoked sooner. 19 DIAGNOSIS CRITERIA MMB ng/ml Relative Index (RI) NON-AMI < or = 5 N/A [place] > 5 < or = 4 AMI > 5 > 4 20 Troponin I Reference Interva l for [employer] [place] LOCI: 99th Percentile= 0.00-0.045 ng/ml Risk Stratification: <= 0.10 ng/ml Decreased Risk for Adverse Clinical Events. 0.10-1.50 ng/ml Increased Risk for Adv erse Clinical Events. Evaluation of additional criterion and/or repeat testing in 2-6 hours is suggested to rule out myocardial damage. >= 1.50 ng/ml Indicative of Myocardial Injury. 21 THERAPUTIC HUMAN INR VALUES INDICATIONS NORMAL RANGES PROPHYLAXIS/TREATMENT OF: VENOUS THROMBOSIS 2.0-3.0 PULMONARY EMBOLISM 2.0-3.0 PREVENTION OF SYSTEMIC EMBOLISM FROM: TISSUE HEART VALVES 2.0-3.0 ACUTE MYOCARDIAL INFARCTION 2.0-3.0 VALVULAR HEART DISEASE 2.0-3.0 ATRIAL FIBRILLATION 2.0-3.0 MECHANICAL VALVES(HIGH RISK) 2.5-3.5 RECURRENT MYOCARDIAL INFARCTION 2.5-3.5 Procedures Date Code Description Status 06/17/2021 99988 Office/Outpatient Established Mo d MDM 30-39 Min Completed 07/18/2018 [id number] Diabetic Retinal Eye Exam Comple [facility] 01/25/2017 [id number] Diabetic Foot Exam Completed 01/21/2017 [id number] Diabetic Foot Exam Completed 04/14/2006 [id number] Bone Mineral Density Test Comple [facility] Medical Devices Description No Information Available Encounters Type Date Location Provider Dx Diagnosis Office Visit 06[facility]17[facility]2021 10[facility] R26.89 Other [...] disease, unspecified Assessments Date Code Description Provider 06/17/2021 R26.89 Other abnormalities of gait and [...] JR 06/17/2021 I48.92 Unspecified atrial flutter Renny WILVER Marsh JR 06/17/2021 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 * 07/03/2021 2:00 pm - [facility] 06/17/2021 - WILVER Nunez JR* R26.89 Other [...] * I48.92 Unspecified atrial flutter * Z79.01 snf (current) use of anticoagulants * E11.40 Type 2 diabetes mellitus with diabetic neuropathy, unspecified * I25.10 Atherosclerotic heart disease of [place] coronary artery with * E03.9 Hypothyroidism, unspecified [...]
--- OUTSIDE RECORDS SUMMARY | 2021-09-03 11:55 | CCD | Continuity of Care Document ---
Author Author Lab Schedule, Raúl Hale Organization Unknown Address [address] [address] Phone Unavailable Care Team Providers Care Cake Wringer Name Role Phone Eduardo Sandoval MD AUTM [phone] [facility] Hea AUTM [phone] Problems Active Problems Provider Date Chronic diastolic [...] CPT Code Status Date Vaccine Lot # [id number] Given 08/13/2020 Influenza Vaccin e Quadrivalent Preser/Antibiotic Free Im Use [id number] Given 03/13/2015 Prevnar 13 [id number] Given 04/21/2011 Pneumovax 23 13938 Given 09/05/2008 Influenza Virus Vaccine [id number] Refused 08/31/2017 Influenza Vaccin e Quadrivalent Preser/Antibiotic [...] Date Facility Test Result H/L Range Note Laboratory test finding 07/01/2021 [place] [facility] Work[facility] dhiraj olson Livestock Caretaker: Dr Laith [place]ira [place] [id number] [phone] A1c <pending> Laboratory test finding 07/01/2021 [place] [facility] Work[facility] dhiraj olson Livestock Caretaker: [place] [address] [phone] TSH <pending> Complete Blood Count 06/17/2021 [place] dhiraj Oneill Livestock Caretaker: Dr Laith Silveira [place] [id number] [phone] WBC 11.2 x10*3/UL High 4.1 - 10.9 1 RBC 4.02 x10*6/UL Low 4.20 - 6.30 [...] 2.0 - 7.8 Basic Metabolic Panel 06/17/2021 [place] dhiraj Borges Livestock Caretaker: [place] [address] [phone] Glucose 149 mg/dL High 74 - 99 2 BUN 27 mg/dL High 7 - 18 3 Creatinine 3.1 mg/dL High 0.6 - 1.3 Sodium 140 mEq/L 136 - 145 Potassium 3.8 mEq/L 3.5 - 5.1 Chloride 102 mEq/L 98 - 107 Carbon Dioxide 33 mEq/L High 21 - 32 Calcium 9.1 mg/dL 8.5 - 10.1 GFR 20 mL/min Low >60 GFR 24 mL/min Low >60 4 Laboratory test finding 06/17/2021 [place] [facility] Livestock Caretaker: Dr Laith Silveira [place] [id number] [phone] Thyroid Stimulating Hormone 2.97 uIU/mL 0.3 6 - 3.74 Laboratory test finding 05/22/[address] [address] [phone] Thyroid Stimulating Hormone 1.940 uIU/ML Normal 0. 358-3.740 Free T4 0.90 ng/dL Normal 0.76-1.46 Laboratory test finding 05/22/[address] [address] [phone] Platelet Estimate DECREASED Normal Normal Differential 05/22/2021 [facility] nter [address] [place] [address] [phone] Neutrophils 64 % Normal 28-66 Bands 12 % High < 11 Lymphocytes 11 % Low 16-44 Monocytes 9 % High 0-5 Basophils 1 % Normal 0-1 Metamyelocytes 1 % High 0-0 Myelocytes 2 % High 0-0 CBC With Differential 05/22/[address] [address] [phone] White Blood Count 8.4 10 Normal 4.0-10.0 [...] % High 0-0 Basic Metabolic Profile 05/22/2021 [facility] [address] [place] [address] [phone] Glucose, Fasting 94 mg/dL Normal 70-100 Blood [...] 7.9 mg/dL Low 8.8-10.2 Liver Profile 05/22/2021 [facility] nter [address] [place] [address] [phone] Ast/Sgot 29 U/L Normal 7-37 Alt/SGPT 53 U/L Normal 12-78 Alkaline Phosphatase 131 U/L High 45-117 Bilirubin,Total 0.4 mg/dL Normal 0.2-1.0 Bilirubin,Direct 0.2 mg/dL Normal 0.0-0.2 Total Protein 5.8 GM/DL Low 6.4-8.2 Albumin 2.6 GM/DL Low 3.2-5.2 Albumin/Globulin Ratio 0.8 Normal Cardiac Marker Panel 05/22/2021 [facility] enter [address] [place] [address] [phone] CPK Creatine Phosphokinase 58 U/L Normal 39-30 8 CK-MB Value Mass 3.1 NG/ML Normal <3.6 MB/CK Relative Index 5.34 High < Or =4 6 Troponin I 0.14 NG/ML High < 0.10 7 Influenza A/B RSV Covid Amp 05/22/2021 [facility] [address] [place] [address] [phone] Influenza A Amplification NEGATIVE Normal Negati ve 8 Influenza B Amplification NEGATIVE Normal Negative 9 RSV Amplification NEGATIVE Normal Negative 10 Sars Covid-19 Amplification NEGATIVE Normal Negative 11 Laboratory test finding 05/22/2021 [facility] [address] [place] [address] [phone] C Reactive Protein Quantitativ 10.10 mg/dL High 0.00-0.30 Cardiac Marker Panel 05/22/2021 [facility] enter [address] [place] [address] [phone] CPK Creatine Phosphokinase 55 U/L Normal 39-30 8 CK-MB Value Mass 3.2 NG/ML Normal <3.6 MB/CK Relative Index 5.82 High < Or =4 12 Troponin I 0.13 NG/ML High < 0.10 13 Laboratory test finding 05/07/[address] [address] [phone] iSTAT Troponin 0.10 NG/ML High 0.00-0.08 Istat Chem8+ Panel 05/07/2021 [facility] nter [address] [place] [address] [phone] iSTAT HCT 33.0 % Low 38.0-51.0 iSTAT Glucose 89 mg/dL Normal 70-105 iSTAT Sodium 140 mEq/L Normal 136-145 iSTAT Potassium 3.9 mEq/L Normal 3.5-5.1 iSTAT CA++ 4.2 mg/dL Low 4.5-5.3 iSTAT Chloride 100 mEq/L Normal 98-109 iSTAT Co2 24.0 MM/L Normal 23.0-27.0 iSTAT BUN 41 mg/dL High 8-26 iSTAT Creatinine 4.4 mg/dL High 0.6-1.3 CBC With Differential 05/07/[address] [address] [phone] White Blood Count 6.9 10 Normal 4.0-10.0 [...] 36.0-66.0 Lymph % 5.7 % Low 24.0-44.0 [place] % 5.1 % Normal 2.0-8.0 Eos % 3.6 % High 0.0-3.0 Baso % 0.3 % Normal 0.0-1.0 Immature Granulocyte % 2.6 % Normal 0-3.0 Nucleated Red Blood Cell % 0.0 % Normal 0-0 Neutrophils # 5.7 10 Normal 1.5-8.5 Lymph # 0.4 10 Low 1.5-5.0 [place] # 0.4 10 Normal 0.0-0.8 Eos # 0.3 10 Normal 0.0-0.5 Baso # 0.0 10 Normal 0.0-0.2 Laboratory test finding 05/07/2021 [facility] [address] [place] [address] [phone] Ammonia < 10 uMOL/L Normal <32 Liver Profile 05/07/2021 [facility] nter [address] [place] [address] [phone] Ast/Sgot 70 U/L High 7-37 Alt/SGPT 69 U/L Normal 12-78 Alkaline Phosphatase 84 U/L Normal 45-117 Bilirubin,Total 0.5 mg/dL Normal 0.2-1.0 Bilirubin,Direct 0.2 mg/dL Normal 0.0-0.2 Total Protein 5.3 GM/DL Low 6.4-8.2 Albumin 2.4 GM/DL Low 3.2-5.2 Albumin/Globulin Ratio 0.8 Normal Basic Metabolic Profile 05/07/2021 [place] [address] [place] [address] [phone] Glucose, Fasting 90 mg/dL Normal 70-100 Blood [...] mg/dL Low 8.8-10.2 Laboratory test finding 05/07/2021 [facility] [address] [place] [address] [phone] Thyroid Stimulating Hormone 0.505 uIU/ML Normal 0. 358-3.740 Influenza A/B RSV Covid Amp 05/07/2021 [facility] [address] [place] [address] [phone] Influenza A Amplification NEGATIVE Normal Negati ve 15 Influenza B Amplification NEGATIVE Normal Negative 16 RSV Amplification NEGATIVE Normal Negative 17 Sars Covid-19 Amplification NEGATIVE Normal Negative 18 Cardiac Marker Panel 04/27/2021 [facility] enter [address] [place] [address] [phone] CPK Creatine Phosphokinase 850 U/L High 39-30 8 CK-MB Value Mass 7.7 NG/ML High <3.6 MB/CK Relative Index 0.91 Normal < Or =4 19 Troponin I 1.15 NG/ML High < 0.10 20 Complete Blood Count 04/01/2021 [facility] enter [address] [place] [address] [phone] White Blood Count 9.4 10 Normal 4.0-10.0 [...] 0.0 % Normal 0-0 Prothrombin Time/Inr 04/01/2021 [facility] enter [address] [place] [address] [phone] Prothrombin Time 13.7 seconds Normal 12.5-14.3 Inr 1.03 Normal 21 1 CRITICAL: CBC VERIFIED 2 100-125 mg/dL PRE-DIABET ES/FASTING >126 mg/dL DIABETES/FASTING 3 NOTE: BUN,CREAT VERIFIED 4 CHRONIC KIDNEY DISEASE STAGI NG PER NKF STAGE I & II GFR >= 60 NORMAL TO MILDLY DECREASED STAGE III GFR 30-59 MODERATELY DECREASED STAGE IV GFR 15-29 SEVERELY DECREASED STAGE V GFR <15 VERY LITTLE GFR LEFT ESRD GFR <15 ON CONTACT PERSON 5 Units are mL/min/1.73 m2 Chronic Kidney Disease Staging per NKF: Stage I & II GFR >=60 Normal to Mildly Decreased Stage III GFR 30-59 Moderately Decreased Stage IV GFR 15-29 Severely Decreased Stage V GFR <15 Very Little GFR Left ESRD GFR <15 on CONTACT PERSON 6 DIAGNOSIS CRITERIA MMB ng/ml Relative Index (RI) NON-AMI < or = 5 N/A SUTHERLAND ZONE > 5 < or = 4 AMI > 5 > 4 7 Troponin I Reference Interva l for [employer] [place] LOCI: 99th Percentile= 0.00-0.045 ng/ml Risk Stratification: [...] pathogens. DISCLAIMER: Testing was performed using the [employer] SARS-CoV-2 test. This test was developed and its performance characteristics determined by [employer]. This test has not been FDA cleared [...] Troponin I Reference Interva l for [employer] [place] LOCI: 99th Percentile= 0.00-0.045 ng/ml Risk Stratification: [...] Little GFR Left ESRD GFR <15 on CONTACT PERSON 15 Negative results do not prec lude [...] pathogens. DISCLAIMER: Testing was performed using the [employer] SARS-CoV-2 test. This test was developed and its performance characteristics determined by [employer]. This test has not been FDA cleared [...] 20 Troponin I Reference Interva l for [employer] [place] LOCI: 99th Percentile= 0.00-0.045 ng/ml Risk Stratification: [...] 2.5-3.5 Procedures Date Code Description Status 06/17/2021 [address] Office/Outpatient Established Mo d MDM 30-39 Min Completed 07/18/2018 [id number] Diabetic Retinal Eye Exam Comple tejas 01/25/2017 [id number] Diabetic Foot Exam Completed 01/21/2017 [id number] Diabetic Foot Exam Completed 04/14/2006 [id number] Bone Mineral Density Test Comple [facility] Description No Information Available Encounters Type Date Location Provider Dx Diagnosis Office Visit 06/17/2021 10:20a [facility] WILVER Parmar JR R26.89 Other abnormalities of gait and mobility N17.9 Acute kidney failure, unspec ified I12.9 Hypertensive chronic kidney disease w stg 1-4/unsp chr kdny N18.4 Chronic kidney disease, stag e 4 (severe) I73.9 Peripheral vascular disease, unspecified I48.91 Unspecified atrial fibrillat ion I48.92 Unspecified atrial flutter Z79.01 assisted (current) use of a nticoagulants E11.40 Type [...] atrial flutter WILVER Nava JR 06/17/2021 Z79.01 gas torch brazier (current) use of antic oagulants WILVER Nunez JR 06/17/2021 E11.40 Type 2 diabetes kaye itus with diabetic neuropathy, unspecified WILVER Nunez JR 06/17/2021 I25.10 Atherosclerotic heart disease of [place] coronary artery with WILVER Nunez JR 06/17/2021 E03.9 Hypothyroidism, unspecified Robe WLIVER Ni JR 06/17/2021 D64.9 Anemia, unspecified WILVER Constantino JR 06/17/2021 J44.9 Chronic obstructive pulmonary di sease, unspecified WILVER Nunez JR Plan of Treatment Future Appointment(s):* 07/03/2021 2:00 pm - Eduardo Sandoval M.D. at [facility] 06/17/2021 - WILVER Nunez JR* R26.89 [...] * I48.92 Unspecified atrial flutter * Z79.01 assisted (current) use of anticoagulants * E11.40 Type 2 diabetes mellitus with diabetic neuropathy, unspecified * I25.10 Atherosclerotic heart disease of [place] coronary artery with * E03.9 Hypothyroidism, unspecified [...]
--- OUTSIDE RECORDS SUMMARY | 2021-09-03 11:55 | CCD | Continuity of Care Document ---
Author Author Raúl PÉREZ Organization Unknown Address [address] [facility] [address] [place] [address] Phone [phone] Care Team Providers Care Phosphoric Acid Supervisor Name Role Phone Eduardo Sandoval MD AUTM [phone] [facility] Hea AUTM [phone] Problems Active Problems Provider Date Chronic diastolic [...] CPT Code Status Date Vaccine Lot # 40050 Given 08/13/2020 Influenza Vaccin e Quadrivalent Preser/Antibiotic Free Im Use [id number] Given 03/13/2015 Prevnar 13 [id number] Given 04/21/2011 Pneumovax 23 73086 Given 09/05/2008 Influenza Virus Vaccine 60875 Refused 08/31/2017 Influenza Vaccin e Quadrivalent Preser/Antibiotic [...] Result H/L Range Note Laboratory test finding 06/17/2021 [place] Senior Chemical Process Engineer dhiraj olson Recreation Adviser: [place] [address] [phone] TSH <pending> Laboratory test finding 05/22/[address] [address] [phone] Platelet Estimate DECREASED Normal Normal Differential 05/22/2021 [facility] nter [address] [place] [address] [phone] Neutrophils 64 % Normal 28-66 Bands 12 % High < 11 Lymphocytes 11 % Low 16-44 Monocytes 9 % High 0-5 Basophils 1 % Normal 0-1 Metamyelocytes 1 % High 0-0 Myelocytes 2 % High 0-0 CBC With Differential 05/22/[address] [address] [phone] White Blood Count 8.4 10 Normal 4.0-10.0 [...] % High 0-0 Laboratory test finding 05/22/[address] [address] [phone] Thyroid Stimulating Hormone 1.940 uIU/ML Normal 0. 358-3.740 Free T4 0.90 ng/dL Normal 0.76-1.46 Basic Metabolic Profile 05/22/2021 [facility] [address] [place] [address] [phone] Glucose, Fasting 94 mg/dL Normal 70-100 Blood Urea Nitrogen 28 mg/dL High 7-18 Creatinine For GFR 4.03 mg/dL High 0.70-1.30 Glomerular Filtration Rate 15.4 Low >42 1 Sodium Level 141 mEq/L Normal 136-145 Potassium Serum 3.8 mEq/L Normal 3.5-5.1 Chloride Level 102 mEq/L Normal 98-107 Carbon Dioxide Level 29 mEq/L Normal 21-32 Anion Gap 10 mEq/L Normal 8-16 Calcium Level 7.9 mg/dL Low 8.8-10.2 Liver Profile 05/22/2021 [facility] nter [address] [place] [address] [phone] Ast/Sgot 29 U/L Normal 7-37 Alt/SGPT 53 U/L Normal 12-78 Alkaline Phosphatase 131 U/L High 45-117 Bilirubin,Total 0.4 mg/dL Normal 0.2-1.0 Bilirubin,Direct 0.2 mg/dL Normal 0.0-0.2 Total Protein 5.8 GM/DL Low 6.4-8.2 Albumin 2.6 GM/DL Low 3.2-5.2 Albumin/Globulin Ratio 0.8 Normal Cardiac Marker Panel 05/22/2021 [facility] [address] [place] [address] [phone] CPK Creatine Phosphokinase 58 U/L Normal 39-30 8 CK-MB Value Mass 3.1 NG/ML Normal <3.6 MB/CK Relative Index 5.34 High < Or =4 2 Troponin I 0.14 NG/ML High < 0.10 3 Influenza A/B RSV Covid Amp 05/22/2021 [facility] [address] [place] [address] [phone] Influenza A Amplification NEGATIVE Normal Negati ve 4 Influenza B Amplification NEGATIVE Normal Negative 5 RSV Amplification NEGATIVE Normal Negative 6 Sars Covid-19 Amplification NEGATIVE Normal Negative 7 Laboratory test finding 05/22/2021 [facility] [address] [place] [address] [phone] C Reactive Protein Quantitativ 10.10 mg/dL High 0.00-0.30 Cardiac Marker Panel 05/22/2021 [facility] enter [address] [place] [address] [phone] CPK Creatine Phosphokinase 55 U/L Normal 39-30 8 CK-MB Value Mass 3.2 NG/ML Normal <3.6 MB/CK Relative Index 5.82 High < Or =4 8 Troponin I 0.13 NG/ML High < 0.10 9 Laboratory test finding 05/07/2021 [facility] [address] [place] [address] [phone] iSTAT Troponin 0.10 NG/ML High 0.00-0.08 Istat Chem8+ Panel 05/07/2021 [facility] nter [address] [place] [address] [phone] iSTAT HCT 33.0 % Low 38.0-51.0 iSTAT Glucose 89 mg/dL Normal 70-105 iSTAT Sodium 140 mEq/L Normal 136-145 iSTAT Potassium 3.9 mEq/L Normal 3.5-5.1 iSTAT CA++ 4.2 mg/dL Low 4.5-5.3 iSTAT Chloride 100 mEq/L Normal 98-109 iSTAT Co2 24.0 MM/L Normal 23.0-27.0 iSTAT BUN 41 mg/dL High 8-26 iSTAT Creatinine 4.4 mg/dL High 0.6-1.3 CBC With Differential 05/07/2021 [facility] [address] [place] [address] [phone] White Blood Count 6.9 10 Normal 4.0-10.0 [...] 36.0-66.0 Lymph % 5.7 % Low 24.0-44.0 [place] % 5.1 % Normal 2.0-8.0 Eos % 3.6 % High 0.0-3.0 Baso % 0.3 % Normal 0.0-1.0 Immature Granulocyte % 2.6 % Normal 0-3.0 Nucleated Red Blood Cell % 0.0 % Normal 0-0 Neutrophils # 5.7 10 Normal 1.5-8.5 Lymph # 0.4 10 Low 1.5-5.0 [place] # 0.4 10 Normal 0.0-0.8 Eos # 0.3 10 Normal 0.0-0.5 Baso # 0.0 10 Normal 0.0-0.2 Laboratory test finding 05/07/[address] [address] [phone] Ammonia < 10 uMOL/L Normal <32 Liver Profile 05/07/2021 [facility] nter [address] [place] [address] [phone] Ast/Sgot 70 U/L High 7-37 Alt/SGPT 69 U/L Normal 12-78 Alkaline Phosphatase 84 U/L Normal 45-117 Bilirubin,Total 0.5 mg/dL Normal 0.2-1.0 Bilirubin,Direct 0.2 mg/dL Normal 0.0-0.2 Total Protein 5.3 GM/DL Low 6.4-8.2 Albumin 2.4 GM/DL Low 3.2-5.2 Albumin/Globulin Ratio 0.8 Normal Basic Metabolic Profile 05/07/[address] [address] [phone] Glucose, Fasting 90 mg/dL Normal 70-100 Blood Urea Nitrogen 41 mg/dL High 7-18 Creatinine For GFR 4.06 mg/dL High 0.70-1.30 Glomerular Filtration Rate 15.3 Low >42 1 0 Sodium Level 140 mEq/L Normal 136-145 Potassium Serum 3.9 mEq/L Normal 3.5-5.1 Chloride Level 106 mEq/L Normal 98-107 Carbon Dioxide Level 27 mEq/L Normal 21-32 Anion Gap 7 mEq/L Low 8-16 Calcium Level 7.4 mg/dL Low 8.8-10.2 Laboratory test finding 05/07/2021 [facility] [address] [place] [address] [phone] Thyroid Stimulating Hormone 0.505 uIU/ML Normal 0. 358-3.740 Influenza A/B RSV Covid Amp 05/07/2021 [facility] [address] [place] [address] [phone] Influenza A Amplification NEGATIVE Normal Negati ve 11 Influenza B Amplification NEGATIVE Normal Negative 12 RSV Amplification NEGATIVE Normal Negative 13 Sars Covid-19 Amplification NEGATIVE Normal Negative 14 Cardiac Marker Panel 04/27/2021 [facility] enter [address] [place] [address] [phone] CPK Creatine Phosphokinase 850 U/L High 39-30 8 CK-MB Value Mass 7.7 NG/ML High <3.6 MB/CK Relative Index 0.91 Normal < Or =4 15 Troponin I 1.15 NG/ML High < 0.10 16 Complete Blood Count 04/01/2021 [facility] enter [address] [place] [address] [phone] White Blood Count 9.4 10 Normal 4.0-10.0 [...] 0.0 % Normal 0-0 Prothrombin Time/Inr 04/01/2021 [facility] enter [address] [place] [address] [phone] Prothrombin Time 13.7 seconds Normal 12.5-14.3 Inr 1.03 Normal 17 1 Units are mL/min/1.73 m2 Chronic Kidney Disease Staging per NKF: Stage I & II GFR >=60 Normal to Mildly Decreased Stage III GFR 30-59 Moderately Decreased Stage IV GFR 15-29 Severely Decreased Stage V GFR <15 Very Little GFR Left ESRD GFR <15 on RESTAURANT SUPERVISOR 2 DIAGNOSIS CRITERIA MMB ng/ml Relative Index (RI) NON-AMI < or = 5 N/A [place] ZONE > 5 < or = 4 AMI > 5 > 4 3 Troponin I Reference Interva l for [employer] [place] LOCI: 99th Percentile= 0.00-0.045 ng/ml Risk Stratification: <= 0.10 ng/ml Decreased Risk for Adverse Clinical Events. 0.10-1.50 ng/ml Increased Risk for Adv erse Clinical Events. Evaluation of additional criterion and/or repeat testing in 2-6 hours is suggested to rule out myocardial damage. >= 1.50 ng/ml Indicative of Myocardial Injury. 4 Negative results do not prec lude influenza or RSV virus infection and should not be used as the sole basis for treatment or other patient management decisions. 5 Negative results do not prec lude influenza or RSV virus infection and should not be used as the sole basis for treatment or other patient management decisions. 6 Negative results do not prec lude influenza or RSV virus infection and should not be used as the sole basis for treatment or other patient management decisions. 7 A false negative result may occur if [...] pathogens. DISCLAIMER: Testing was performed using the [employer] SARS-CoV-2 test. This test was developed and its performance characteristics determined by [employer]. This test has not been FDA [...] the authorization is terminated or revoked sooner. 8 DIAGNOSIS CRITERIA MMB ng/ml Relative Index (RI) NON-AMI < or = 5 N/A [place] ZONE > 5 < or = 4 AMI > 5 > 4 9 Troponin I Reference Interva l for [employer] LOCI: 99th Percentile= 0.00-0.045 ng/ml Risk Stratification: <= 0.10 ng/ml Decreased Risk for Adverse Clinical Events. 0.10-1.50 ng/ml Increased Risk for Adv erse Clinical Events. Evaluation of additional criterion and/or repeat testing in 2-6 hours is suggested to rule out myocardial damage. >= 1.50 ng/ml Indicative of Myocardial Injury. 10 Units are mL/min/1.73 m2 Chronic Kidney Disease Staging per NKF: Stage I & II GFR >=60 Normal to Mildly Decreased Stage III GFR 30-59 Moderately Decreased Stage IV GFR 15-29 Severely Decreased Stage V GFR <15 Very Little GFR Left ESRD GFR <15 on RESTAURANT SUPERVISOR 11 Negative results do not prec lude influenza or RSV virus infection and should not be used as the sole basis for treatment or other patient management decisions. 12 Negative results do not prec lude influenza or RSV virus infection and should not be used as the sole basis for treatment or other patient management decisions. 13 Negative results do not prec lude influenza or RSV virus infection and should not be used as the sole basis for treatment or other patient management decisions. 14 A false negative result may occur if [...] pathogens. DISCLAIMER: Testing was performed using the [employer] SARS-CoV-2 test. This test was developed and its performance characteristics determined by [employer]. This test has not been FDA [...] the authorization is terminated or revoked sooner. 15 DIAGNOSIS CRITERIA MMB ng/ml Relative Index (RI) NON-AMI < or = 5 N/A [place] ZONE > 5 < or = 4 AMI > 5 > 4 16 Troponin I Reference Interva l for [employer] [place] LOCI: 99th Percentile= 0.00-0.045 ng/ml Risk Stratification: <= 0.10 ng/ml Decreased Risk for Adverse Clinical Events. 0.10-1.50 ng/ml Increased Risk for Adv erse Clinical Events. Evaluation of additional criterion and/or repeat testing in 2-6 hours is suggested to rule out myocardial damage. >= 1.50 ng/ml Indicative of Myocardial Injury. 17 THERAPUTIC HUMAN INR VALUES INDICATIONS NORMAL RANGES PROPHYLAXIS/TREATMENT OF: VENOUS THROMBOSIS 2.0-3.0 PULMONARY EMBOLISM 2.0-3.0 PREVENTION OF SYSTEMIC EMBOLISM FROM: TISSUE HEART VALVES 2.0-3.0 ACUTE MYOCARDIAL INFARCTION 2.0-3.0 VALVULAR HEART DISEASE 2.0-3.0 ATRIAL FIBRILLATION 2.0-3.0 MECHANICAL VALVES(HIGH RISK) 2.5-3.5 RECURRENT MYOCARDIAL INFARCTION 2.5-3.5 Procedures Date Code Description Status 07/18/2018 [id number] Diabetic Retinal Eye Exam Comple [facility] 01/25/2017 [id number] Diabetic Foot Exam Completed 01/21/2017 [id number] Diabetic Foot Exam Completed 04/14/2006 [id number] Bone Mineral Density Test Comple [facility] Medical Devices Description No Information Available Encounters Description No Information Available Assessments Date Code Description Provider 06/17/2021 R26.89 Other abnormalities of gait and mobility Raúl Pérez JR, PA Plan of Treatment Future Appointment(s):* 07/02/2021 11:20 am - Lab Schedule at [facility] * 07/03/2021 2:00 pm - Eduardo Sandoval M.D. at [facility] 06/17/2021 - WILVER Nunez JR* R26.89 Other abnormalities of gait and mobility * All * New Medication:* Eliquis 2.5 [...] at bedtime daily as needed for sleep Functional Status Description No Information Available Mental Status Description No Information Available Referrals Description No Information Available
--- OUTSIDE RECORDS SUMMARY | 2021-09-03 11:55 | CCD | Continuity of Care Document ---
Author Author Raúl PÉREZ Organization Unknown Address [address] [facility] [address] [place] [address] Phone [phone] Care Team Providers Care Copra Processor Name Role Phone Eduardo Sandoval MD AUTM [phone] [facility] AUTM [phone] Problems Active Problems Provider Date Chronic diastolic [...] CPT Code Status Date Vaccine Lot # [id number] Given 08/13/2020 Influenza Vaccin e Quadrivalent Preser/Antibiotic Free Im Use [id number] Given 03/13/2015 Prevnar 13 [id number] Given 04/21/2011 Pneumovax 23 [id number] Given 09/05/2008 Influenza Virus Vaccine [id number] Refused 08/31/2017 Influenza Vaccin e Quadrivalent Preser/Antibiotic [...] H/L Range Note Basic Metabolic Panel 06/17/2021 [facility] Office Rep: [place] [address] [phone] Glucose 149 mg/dL High 74 - 99 [...] Low >60 3 Laboratory test finding 06/17/2021 [facility] Office Rep: [place] [address] [phone] Thyroid Stimulating Hormone 2.97 uIU/mL 0.3 6 - 3.74 Complete Blood Count 06/17/2021 [facility] Office Rep: [place] [address] [phone] WBC 11.2 x10*3/UL High 4.1 - 10.9 [...] 2.0 - 7.8 Laboratory test finding 05/22/2021 [place] [id number] [phone] Platelet Estimate DECREASED Normal Normal Differential 05/22/2021 [facility] nter [address] [place] [address] [phone] Neutrophils 64 % Normal 28-66 Bands 12 % High < 11 Lymphocytes 11 % Low 16-44 Monocytes 9 % High 0-5 Basophils 1 % Normal 0-1 Metamyelocytes 1 % High 0-0 Myelocytes 2 % High 0-0 CBC With Differential 05/22/[address] [address] [phone] White Blood Count 8.4 10 Normal 4.0-10.0 [...] % High 0-0 Laboratory test finding 05/22/[address] [address] [phone] Thyroid Stimulating Hormone 1.940 uIU/ML Normal 0. 358-3.740 Free T4 0.90 ng/dL Normal 0.76-1.46 Basic Metabolic Profile 05/22/[address] [id number] [phone] Glucose, Fasting 94 mg/dL Normal 70-100 Blood [...] 7.9 mg/dL Low 8.8-10.2 Liver Profile 05/22/2021 [facility] [address] [place] [address] [phone] Ast/Sgot 29 U/L Normal 7-37 Alt/SGPT 53 U/L Normal 12-78 Alkaline Phosphatase 131 U/L High 45-117 Bilirubin,Total 0.4 mg/dL Normal 0.2-1.0 Bilirubin,Direct 0.2 mg/dL Normal 0.0-0.2 Total Protein 5.8 GM/DL Low 6.4-8.2 Albumin 2.6 GM/DL Low 3.2-5.2 Albumin/Globulin Ratio 0.8 Normal Cardiac Marker Panel 05/22/2021 [facility] [address] [place] [address] [phone] CPK Creatine Phosphokinase 58 U/L Normal 39-30 8 CK-MB Value Mass 3.1 NG/ML Normal <3.6 MB/CK Relative Index 5.34 High < Or =4 6 Troponin I 0.14 NG/ML High < 0.10 7 Influenza A/B RSV Covid Amp 05/22/2021 [facility] [address] [place] [address] [phone] Influenza A Amplification NEGATIVE Normal Negati ve 8 Influenza B Amplification NEGATIVE Normal Negative 9 RSV Amplification NEGATIVE Normal Negative 10 Sars Covid-19 Amplification NEGATIVE Normal Negative 11 Laboratory test finding 05/22/2021 [facility] [address] [place] [address] [phone] C Reactive Protein Quantitativ 10.10 mg/dL High 0.00-0.30 Cardiac Marker Panel 05/22/2021 [facility] C enter [address] [place] [address] [phone] CPK Creatine Phosphokinase 55 U/L Normal 39-30 8 CK-MB Value Mass 3.2 NG/ML Normal <3.6 MB/CK Relative Index 5.82 High < Or =4 12 Troponin I 0.13 NG/ML High < 0.10 13 Laboratory test finding 05/07/2021 [facility] [address] [place] [address] [phone] iSTAT Troponin 0.10 NG/ML High 0.00-0.08 Istat Chem8+ Panel 05/07/2021 [facility] n[facility] [address] [place] [address] [phone] iSTAT HCT 33.0 % Low 38.0-51.0 iSTAT Glucose 89 mg/dL Normal 70-105 iSTAT Sodium 140 mEq/L Normal 136-145 iSTAT Potassium 3.9 mEq/L Normal 3.5-5.1 iSTAT CA++ 4.2 mg/dL Low 4.5-5.3 iSTAT Chloride 100 mEq/L Normal 98-109 iSTAT Co2 24.0 MM/L Normal 23.0-27.0 iSTAT BUN 41 mg/dL High 8-26 iSTAT Creatinine 4.4 mg/dL High 0.6-1.3 CBC With Differential 05/07/[address] [address] [phone] White Blood Count 6.9 10 Normal 4.0-10.0 [...] 36.0-66.0 Lymph % 5.7 % Low 24.0-44.0 [place] % 5.1 % Normal 2.0-8.0 Eos % 3.6 % High 0.0-3.0 Baso % 0.3 % Normal 0.0-1.0 Immature Granulocyte % 2.6 % Normal 0-3.0 Nucleated Red Blood Cell % 0.0 % Normal 0-0 Neutrophils # 5.7 10 Normal 1.5-8.5 Lymph # 0.4 10 Low 1.5-5.0 [place] # 0.4 10 Normal 0.0-0.8 Eos # 0.3 10 Normal 0.0-0.5 Baso # 0.0 10 Normal 0.0-0.2 Laboratory test finding 05/07/2021 [place] [address] [place] [address] [phone] Ammonia < 10 uMOL/L Normal <32 Liver Profile 05/07/2021 [facility] nter [address] [place] [address] [phone] Ast/Sgot 70 U/L High 7-37 Alt/SGPT 69 U/L Normal 12-78 Alkaline Phosphatase 84 U/L Normal 45-117 Bilirubin,Total 0.5 mg/dL Normal 0.2-1.0 Bilirubin,Direct 0.2 mg/dL Normal 0.0-0.2 Total Protein 5.3 GM/DL Low 6.4-8.2 Albumin 2.4 GM/DL Low 3.2-5.2 Albumin/Globulin Ratio 0.8 Normal Basic Metabolic Profile 05/07/[address] [address] [phone] Glucose, Fasting 90 mg/dL Normal 70-100 Blood [...] mg/dL Low 8.8-10.2 Laboratory test finding 05/07/2021 [facility] [address] [place] [address] [phone] Thyroid Stimulating Hormone 0.505 uIU/ML Normal 0. 358-3.740 Influenza A/B RSV Covid Amp 05/07/2021 [facility] [address] [place] [address] [phone] Influenza A Amplification NEGATIVE Normal Negati ve 15 Influenza B Amplification NEGATIVE Normal Negative 16 RSV Amplification NEGATIVE Normal Negative 17 Sars Covid-19 Amplification NEGATIVE Normal Negative 18 Cardiac Marker Panel 04/27/2021 [facility] enter [address] [place] [address] [phone] CPK Creatine Phosphokinase 850 U/L High 39-30 8 CK-MB Value Mass 7.7 NG/ML High <3.6 MB/CK Relative Index 0.91 Normal < Or =4 19 Troponin I 1.15 NG/ML High < 0.10 20 Complete Blood Count 04/01/2021 [facility] enter [address] [place] [address] [phone] White Blood Count 9.4 10 Normal 4.0-10.0 [...] 0.0 % Normal 0-0 Prothrombin Time/Inr 04/01/2021 [facility] enter [address] [place] [address] [phone] Prothrombin Time 13.7 seconds Normal 12.5-14.3 Inr [...] LITTLE GFR LEFT ESRD GFR <15 ON DATA ANALYTICS ANALYST 4 CRITICAL: CBC VERIFIED 5 Units are mL/min/1.73 m2 Chronic Kidney Disease Staging per NKF: Stage I & II GFR >=60 Normal to Mildly Decreased Stage III GFR 30-59 Moderately Decreased Stage IV GFR 15-29 Severely Decreased Stage V GFR <15 Very Little GFR Left ESRD GFR <15 on DATA ANALYTICS ANALYST 6 DIAGNOSIS CRITERIA MMB ng/ml Relative Index (RI) NON-AMI < or = 5 N/A [place] ZONE > 5 < or = 4 AMI > 5 > 4 7 Troponin I Reference Interva l for [employer] LOCI: 99th Percentile= 0.00-0.045 ng/ml Risk Stratification: [...] pathogens. DISCLAIMER: Testing was performed using the [employer] SARS-CoV-2 test. This test was developed and its performance characteristics determined by [employer]. This test has not been FDA cleared [...] Troponin I Reference Interva l for [employer] LOCI: 99th Percentile= 0.00-0.045 ng/ml Risk Stratification: [...] Little GFR Left ESRD GFR <15 on DATA ANALYTICS ANALYST 15 Negative results do not prec lude [...] pathogens. DISCLAIMER: Testing was performed using the [employer] SARS-CoV-2 test. This test was developed and its performance characteristics determined by [employer]. This test has not been FDA cleared [...] 20 Troponin I Reference Interva l for [employer] LOCI: 99th Percentile= 0.00-0.045 ng/ml Risk Stratification: [...] 2.5-3.5 Procedures Date Code Description Status 07/18/2018 [id number] Diabetic Retinal Eye Exam [facility] 01/25/2017 [id number] Diabetic Foot Exam Completed 01/21/2017 [id number] Diabetic Foot Exam Completed 04/14/2006 [id number] Bone Mineral Density Test [facility] Description No Information Available Encounters Description No Information Available Assessments Date Code Description Provider 06/17/2021 R26.89 Other abnormalities of gait and mobility Raúl Pérez JR, PA Plan of Treatment Future Appointment(s):* 07/01/2021 11:20 am - Lab Schedule at [facility] * 07/03/2021 2:00 pm - Edu[facility] Sand[facility] at [facility] 06/17/2021 - WILVER Nunez JR* R26.89 Other [...]
--- OUTSIDE RECORDS SUMMARY | 2021-09-03 11:56 | CCD ---
Author Author [facility] Organization [facility] Address Unknown Phone Unavailable Care Team Providers Care Sharepoint Application Architect Name Role Phone Manasa Sandoval MD Unavailable Unavailable Manasa Sandoval MD Unavailable Unavailable Manasa Sandoval MD Unavailable Unavailable Manasa Sandoval MD Unavailable Unavailable Manasa Sandoval MD Unavailable Unavailable Manasa Sandoval MD Unavailable Unavailable Manasa Sandoval MD Unavailable Unavailable Manasa Sandoval MD Unavailable Unavailable Manasa Sandoval MD Unavailable Unavailable Manasa Sandoval MD Unavailable Unavailable Manasa Sandoval MD Unavailable Unavailable Manasa Sandoval MD Unavailable Unavailable Manasa Sandoval MD Unavailable Unavailable Manasa Sandoval MD Unavailable Unavailable Manasa Sandoval MD Unavailable Unavailable Manasa Sandoval MD Unavailable Unavailable Manasa Sandoval MD Unavailable Unavailable Manasa Sandoval MD Unavailable Unavailable Manasa Sandoval MD Unavailable Unavailable Manasa Sandoval MD Unavailable Unavailable Manasa Sandoval MD Unavailable Unavailable Manasa Sandoval MD Unavailable Unavailable Manasa Sandoval MD Unavailable Unavailable Manasa Sandoval MD Unavailable Unavailable Manasa Sandoval MD Unavailable Unavailable Manasa Sandoval MD Unavailable Unavailable Manasa Sandoval MD Unavailable Unavailable Manasa Sandoval MD Unavailable Unavailable Manasa Sandoval MD Unavailable Unavailable Manasa Sandoval MD Unavailable Unavailable Manasa Sandoval MD Unavailable Unavailable Manasa Sandoval MD Unavailable Unavailable Manasa Sandoval MD Unavailable Unavailable Manasa Sandoval MD Unavailable Unavailable White, F Eduardo MD Unavailable Unavailable White, F Eduardo MD Unavailable Unavailable White, F Eduardo MD Unavailable Unavailable White, F Eduardo MD Unavailable Unavailable White, F Eduardo MD Unavailable Unavailable White, F Eduardo MD Unavailable Unavailable White, F Eduardo MD Unavailable Unavailable White, F Eduardo MD Unavailable Unavailable White, F Eduardo MD Unavailable Unavailable White, F Eduardo MD Unavailable Unavailable White, F Eduardo MD Unavailable Unavailable White, F Eduardo MD Unavailable Unavailable White, F Eduardo MD Unavailable Unavailable White, F Eduardo MD Unavailable Unavailable White, F Eduardo MD Unavailable Unavailable White, F Eduardo MD Unavailable Unavailable White, F Eduardo MD Unavailable Unavailable White, F Eduardo MD Unavailable Unavailable White, F Eduardo MD Unavailable Unavailable White, F Eduardo MD Unavailable Unavailable White, F Eduardo MD Unavailable Unavailable White, F Eduardo MD Unavailable Unavailable White, F Eduardo MD Unavailable Unavailable White, F Eduardo MD Unavailable Unavailable White, F Eduardo MD Unavailable Unavailable White, F Eduardo MD Unavailable Unavailable White, F Eduardo MD Unavailable Unavailable White, F Eduardo MD Unavailable Unavailable White, F Eduardo MD Unavailable Unavailable White, F Eduardo MD Unavailable Unavailable White, F Eduardo MD Unavailable Unavailable White, F Eduardo MD Unavailable Unavailable White, F Eduardo MD Unavailable Unavailable White, F Eduardo MD Unavailable Unavailable White F Eduardo MD Unavailable Unavailable White F Eduardo MD Unavailable Unavailable White F Eduardo MD Unavailable Unavailable White F Eduardo MD Unavailable Unavailable White, F Eduardo MD Unavailable Unavailable White, F Eduardo MD Unavailable Unavailable White F Eduardo MD Unavailable Unavailable White F Eduardo MD Unavailable Unavailable Lori F Eduardo CARRERA Unavailable Unavailable KIA DUENAS MD Unavailable Unavailable KIA DUENAS MD Unavailable Unavailable KIA DUENAS MD Unavailable Unavailable KIA DUENAS MD Unavailable Unavailable YULISSAKIA MD Unavailable Unavailable KIA DUENAS MD Unavailable Unavailable KIA DUENAS MD Unavailable Unavailable KIA DUENAS MD Unavailable Unavailable KIA DUENAS MD Unavailable Unavailable KIA DUENAS MD Unavailable Unavailable KIA DUENAS MD Unavailable Unavailable KIA DUENAS MD Unavailable Unavailable KIA DUENAS MD Unavailable Unavailable KIA DUENAS MD Unavailable Unavailable KIA DUENAS MD Unavailable Unavailable KIA DUENAS MD Unavailable Unavailable KIA DUENAS MD Unavailable Unavailable KIA DUENAS MD Unavailable Unavailable KIA DUENAS MD Unavailable Unavailable KIA DUENAS MD Unavailable Unavailable KIA DUENAS MD Unavailable Unavailable KIA DUENAS MD Unavailable Unavailable YULISSA, KIA CARRERA Unavailable Unavailable YULISSA, KIA CARRERA Unavailable Unavailable YULISSA, KIA CARRERA Unavailable Unavailable YULISSA, KIA CARRERA Unavailable Unavailable YULISSA, KIA CARRERA Unavailable Unavailable YULISSA, KIA CARRERA Unavailable Unavailable YULISSA, KIA CARRERA Unavailable Unavailable YULISSA, KIA CARRERA Unavailable Unavailable YULISSA, KIA CARRERA Unavailable Unavailable YULISSA, KIA CARRERA Unavailable Unavailable YULISSA, KIA CARRERA Unavailable Unavailable YULISSA, KIA CARRERA Unavailable Unavailable YULISSA, KIA CARRERA Unavailable Unavailable YULISSA, KIA CARRERA Unavailable Unavailable YULISSA, KIA CARRERA Unavailable Unavailable YULISSA, KIA CARRERA Unavailable Unavailable YULISSA, KIA CARRERA Unavailable Unavailable YULISSA, KIA CARRERA Unavailable Unavailable YULISSA, KIA CARRERA Unavailable Unavailable YULISSA, KIA CARRERA Unavailable Unavailable YULISSA, KIA CARRERA Unavailable Unavailable YULISSA, KIA CARRERA Unavailable Unavailable YULISSA, KIA CARRERA Unavailable Unavailable YULISSA, KIA CARRERA Unavailable Unavailable YULISSA, KIA CARRERA Unavailable Unavailable YULISSA, KIA CARRERA Unavailable Unavailable YULISSA, KIA CARRERA Unavailable Unavailable YULISSA, KIA CARRERA Unavailable Unavailable YULISSA, KIA CARRERA Unavailable Unavailable YULISSA, KIA CARRERA Unavailable Unavailable YULISSA, KIA CARRERA Unavailable Unavailable YULISSA, KIA CARRERA Unavailable Unavailable YULISSA, KIA CARRERA Unavailable Unavailable PICKERAL JR, J IVAN PA-C Unavailable Unavailable PICKERAL JR, J IVAN PA-C Unavailable Unavailable PICKERAL JR, J IVAN PA-C Unavailable Unavailable PICKERAL JR, J IVAN PA-C Unavailable Unavailable PICKERAL JR, J IVAN PA-C Unavailable Unavailable PICKERAL JR, J IVAN PA-C Unavailable Unavailable PICKERAL JR, J IVAN PA-C Unavailable Unavailable PICKERAL JR, J IVAN PA-C Unavailable Unavailable PICKERAL JR, J IVAN PA-C Unavailable Unavailable PICKERAL JR, J IVAN PA-C Unavailable Unavailable PICKERAL JR, J IVAN PA-C Unavailable Unavailable PICKERAL JR, J IVAN PA-C Unavailable Unavailable PICKERAL JR, J IVAN PA-C Unavailable Unavailable PICKERAL JR, J IVAN PA-C Unavailable Unavailable PICKERAL JR, J IVAN PA-C Unavailable Unavailable PICKERAL JR, J IVAN PA-C Unavailable Unavailable PICKERAL JR, J IVAN PA-C Unavailable Unavailable PICKERAL JR, J IVAN PA-C Unavailable Unavailable PICKERAL JR, J IVAN PA-C Unavailable Unavailable PICKERAL JR, J IVAN PA-C Unavailable Unavailable PICKERAL JR, J IVAN PA-C Unavailable Unavailable PICKERAL JR, J IVAN PA-C Unavailable Unavailable PICKERAL JR, J IVAN PA-C Unavailable Unavailable PICKERAL JR, J IVAN PA-C Unavailable Unavailable PICKERAL JR, J IVAN PA-C Unavailable Unavailable PICKERAL JR, J IVAN PA-C Unavailable Unavailable PICKERAL JR, J IVAN PA-C Unavailable Unavailable MAJAK, R TERI DPM Unavailable Unavailable MAJAK, R TERI DPM Unavailable Unavailable MAJAK, R TERI DPM Unavailable Unavailable MAJAK, R TERI DPM Unavailable Unavailable MAJAK, R TERI DPM Unavailable Unavailable MAJAK, R TERI DPM Unavailable Unavailable MAJAK, R TERI DPM Unavailable Unavailable MAJAK, R TERI DPM Unavailable Unavailable MAJAK, R TERI DPM Unavailable Unavailable MAJAK, R TERI DPM Unavailable Unavailable MAJAK, R TERI DPM Unavailable Unavailable MAJAK, R TERI DPM Unavailable Unavailable MAJAK, R TERI DPM Unavailable Unavailable MAJAK, R TERI DPM Unavailable Unavailable MAJAK, R TERI DPM Unavailable Unavailable MAJAK, R TERI DPM Unavailable Unavailable MAJAK, R TERI DPM Unavailable Unavailable MAJAK, R TERI DPM Unavailable Unavailable MAJAK, R TERI DPM Unavailable Unavailable MAJAK, R TERI DPM Unavailable Unavailable MAJAK, R TERI DPM Unavailable Unavailable MAJAK, R TERI DPM Unavailable Unavailable MAJAK, R TERI DPM Unavailable Unavailable MAJAK, R TERI DPM Unavailable Unavailable MAJAK, R TERI DPM Unavailable Unavailable MAJAK, R TERI DPM Unavailable Unavailable MAJAK, R TERI DPM Unavailable Unavailable MAJAK, R ETRI DPM Unavailable Unavailable MAJAK, R TERI DPM Unavailable Unavailable MAJAK, R TERI DPM Unavailable Unavailable MAJAK, R TERI DPM Unavailable Unavailable SEMEL, Юлия ZHANG MD Unavailable Unavailable SEMEL, Юлия ZHANG MD Unavailable Unavailable SEMEL, Юлия ZHANG MD Unavailable Unavailable SEMEL, Юлия ZHANG MD Unavailable Unavailable SEMEL, Юлия ZHANG MD Unavailable Unavailable SEMEL, Юлия ZHANG MD Unavailable Unavailable SEMEL, Юлия ZHANG MD Unavailable Unavailable SEMEL, Юлия ZHANG MD Unavailable Unavailable SEMEL, Юлия ZHANG MD Unavailable Unavailable SEMEL, Юлия ZHANG MD Unavailable Unavailable SEMEL, Юлия ZHANG MD Unavailable Unavailable SEMEL, Юлия ZHANG MD Unavailable Unavailable SEMEL, Юлия ZHANG MD Unavailable Unavailable SEMEL, Юлия ZHANG MD Unavailable Unavailable SEMEL, Юлия ZHANG MD Unavailable Unavailable SEMEL, Юлия ZHANG MD Unavailable Unavailable SEMEL, Юлия ZHANG MD Unavailable Unavailable SEMEL, Юлия ZHANG MD Unavailable Unavailable SEMEL, Юлия ZHANG MD Unavailable Unavailable SEMEL, Юлия ZHANG MD Unavailable Unavailable SEMEL, Юлия ZHANG MD Unavailable Unavailable SEMEL, Юлия ZHANG MD Unavailable Unavailable SEMEL, Юлия ZHANG MD Unavailable Unavailable SEMEL, Юлия ZHANG MD Unavailable Unavailable SEMEL, Юлия ZHANG MD Unavailable Unavailable SEMEL, Юлия ZHANG MD Unavailable Unavailable SEMEL, Юлия ZHANG MD Unavailable Unavailable SEMEL, Юлия ZHANG MD Unavailable Unavailable SEMEL, Юлия ZHANG MD Unavailable Unavailable SEMEL, Юлия ZHANG MD Unavailable Unavailable SEMEL, Юлия ZAHNG MD Unavailable Unavailable SEMEL, Юлия ZHANG MD Unavailable Unavailable SEMEL, Юлия ZHANG MD Unavailable Unavailable SEMEL, Юлия ZHANG MD Unavailable Unavailable SEMEL, Юлия ZHANG MD Unavailable Unavailable SEMEL, Юлия ZHANG MD Unavailable Unavailable SEMEL, Юлия ZHANG MD Unavailable Unavailable SEMEL, Юлия ZHANG MD Unavailable Unavailable SEMEL, Юлия ZHANG MD Unavailable Unavailable SEMEL, Юлия ZHANG MD Unavailable Unavailable SEMEL, Юлия ZHANG MD Unavailable Unavailable SEMEL, Юлия ZHANG MD Unavailable Unavailable SEMEL, Юлия ZHANG MD Unavailable Unavailable SEMEL, Юлия ZHANG MD Unavailable Unavailable SEMEL, Юлия ZHANG MD Unavailable Unavailable SEMEL, Юлия ZHANG MD Unavailable Unavailable SEMEL, Юлия ZHANG MD Unavailable Unavailable SEMEL, Юлия ZHANG MD Unavailable Unavailable SEMEL, Юлия ZHANG MD Unavailable Unavailable SEMEL, Юлия ZHANG MD Unavailable Unavailable SEMEL, Юлия ZHANG MD Unavailable Unavailable SEMEL, Юлия ZHANG MD Unavailable Unavailable SEMEL, Юлия ZHANG MD Unavailable Unavailable SEMEL, Юлия ZHANG MD Unavailable Unavailable SEMEL, Юлия ZHANG MD Unavailable Unavailable SEMEL, Юлия ZHANG MD Unavailable Unavailable SEMEL, Юлия ZHANG MD Unavailable Unavailable SEMEL, Юлия ZHANG MD Unavailable Unavailable SEMEL, Юлия ZHANG MD Unavailable Unavailable SEMEL, Юлия ZHANG MD Unavailable Unavailable SEMEL, Юлия ZHANG MD Unavailable Unavailable SEMEL, Юлия ZHANG MD Unavailable Unavailable SEMEL, Юлия ZHANG MD Unavailable Unavailable SEMEL, Юлия ZHANG MD Unavailable Unavailable SEMEL, Юлия ZHANG MD Unavailable Unavailable SEMEL, Юлия ZHANG MD Unavailable Unavailable SEMEL, Юлия ZHANG MD Unavailable Unavailable SEMEL, Юлия ZHANG MD Unavailable Unavailable SEMEL, Юлия ZHANG MD Unavailable Unavailable SEMEL, Юлия ZHANG MD Unavailable Unavailable SEMEL, Юлия ZHANG MD Unavailable Unavailable SEMEL, Юлия ZHANG MD Unavailable Unavailable SEMEL, Юлия ZHANG MD Unavailable Unavailable SEMEL, Юлия ZHANG MD Unavailable Unavailable SEMEL, Юлия ZHANG MD Unavailable Unavailable SEMEL, Юлия ZHANG MD Unavailable Unavailable SEMEL, Юлия ZHANG MD Unavailable Unavailable SEMEL, Юлия ZHANG MD Unavailable Unavailable SEMEL, Юлия ZHANG MD Unavailable Unavailable SEMEL, Юлия ZHANG MD Unavailable Unavailable SEMEL, Юлия ZHANG MD Unavailable Unavailable SEMEL, Юлия ZHANG MD Unavailable Unavailable SEMEL, Юиля ZHANG MD Unavailable Unavailable SEMEL, A LEATHA MD Unavailable Unavailable SEMEL, A LEATHA MD Unavailable Unavailable SEMEL, A LEATHA MD Unavailable Unavailable SEMEL, A LEATHA MD Unavailable Unavailable SEMEL, A LEATHA MD Unavailable Unavailable SEMEL, A LEATHA MD Unavailable Unavailable SEMEL, A LEATHA MD Unavailable Unavailable SEMEL, A LEATHA MD Unavailable Unavailable SEMEL, A LEATHA MD Unavailable Unavailable SEMEL, A LEATHA MD Unavailable Unavailable SEMEL, A LEATHA MD Unavailable Unavailable SEMEL, A LEATHA MD Unavailable Unavailable SEMEL, A LEATHA MD Unavailable Unavailable SEMEL, A LEATHA MD Unavailable Unavailable SEMEL, A LEATHA MD Unavailable Unavailable SEMEL, A LEATHA MD Unavailable Unavailable SEMEL, A LEATHA MD Unavailable Unavailable SEMEL, A LEATHA MD Unavailable Unavailable SEMEL, A LEATHA MD Unavailable Unavailable SEMEL, A LEATHA MD Unavailable Unavailable SEMEL, A LEATHA MD Unavailable Unavailable SEMEL, A LEATHA MD Unavailable Unavailable SEMEL, A LEATHA MD Unavailable Unavailable SEMEL, A LEATHA MD Unavailable Unavailable SEMEL, A LEATHA MD Unavailable Unavailable SEMEL, A LEATHA MD Unavailable Unavailable SEMEL, A LEATHA MD Unavailable Unavailable SEMEL, A LEATHA MD Unavailable Unavailable SEMEL, A LEATHA MD Unavailable Unavailable SEMEL, A LEATHA MD Unavailable Unavailable SEMEL, A LEATHA MD Unavailable Unavailable SEMEL, A LEATHA MD Unavailable Unavailable SEMEL, A LEATHA MD Unavailable Unavailable SEMEL, A LEATHA MD Unavailable Unavailable SEMEL, A LEATHA MD Unavailable Unavailable SEMEL, A LEATHA MD Unavailable Unavailable SEMEL, A LEATHA MD Unavailable Unavailable SEMEL, A LEATHA MD Unavailable Unavailable SEMEL, A LEATHA MD Unavailable Unavailable Re-disclosure Warning The records that you are about to access may contain information from federally-assisted alcohol or drug abuse programs. If such information is present, then the following federally mandated warning applies: This information has been disclosed to you from records protected by federal confidentiality rules (42 CFR part 2). The federal rules prohibit you from making any further disclosure of this information unless further disclosure is expressly permitted by the written consent of the person to whom it pertains or as otherwise permitted by 42 CFR part 2. A general authorization for the release of medical or other information is NOT sufficient for this purpose. The Federal rules restrict any use of the information to criminally investigate or prosecute any alcohol or drug abuse patient.The records that you are about to access may contain highly sensitive health information, the redisclosure of which is protected by Article 27-F of the [place] State Public Health law. If you continue you may have access to information: Regarding HIV / AIDS; Provided by facilities licensed or operated by the [facility] Office of Mental Health; or Provided by the [facility] Office for People With Developmental Disabilities. If such information is present, then the following [facility] mandated warning applies: This information has been disclosed to you from confidential records which are protected by state law. State law prohibits you from making any further disclosure of this information without the specific written consent of the person to whom it pertains, or as otherwise permitted by law. Any unauthorized further disclosure in violation of state law may result in a fine or penitentiary sentence or both. A general authorization for the release of medical or other information is NOT sufficient authorization for further disc losure. Family History Family Member Name Family Member Gender Family Member Status Date o f Status Description Data Source(s) Unknown Unknown Problem [facility] ([facility] Unknown Unknown Problem [facility] ([facility] Unknown Male Problem MED[facility] ([facility]) Unknown Male Problem [facility] ([facility] () Encounters Encounter Providers Location Date Indications Data Source(s ) Outpatient Attender: KIA DUENAS MD [email or web address] 12:00:00 AM EDT - 08/28/2021 02:45:09 PM EDT [facility] Outpatient Attender: IVAN Souza 0 08/03/2021 02:40:00 PM EDT MEDENT ([facility] ) Outpatient Attender: Eduardo Souza 07/03 02:00:00 PM EDT MED[facility] ([facility] ) Outpatient Attender: IVAN Souza 0 06/17/2021 10:20:00 AM EDT MED[facility] ([facility] ) Outpatient Attender: TERI FERRIS [facility] Office 12/22 01:45:00 PM EST MEDENT ([facility] Outpatient Attender: LEATHA AN MD Main Office 09/09/2020 01:00:0 0 PM EDT MEDENT ([facility]) [facility] [address] [place] [phone] 08/15/2020 12:00:00 AM EDT eCW1 ([facility]) Outpatient Attender: Eduardo Souza 08/13 10:30:00 AM EDT MEDENT ([facility] ) Immunizations Vaccine Date Status Description Data Source(s) COVID-19 VACCINE Moderna 02/17/2021 12:00:00 AM EDT completed [facility] Vaccine Series Complete: YESThis Data wa s Submitted to [facility] Via [employer]. COVID-19 VACCINE Moderna 01/20/2021 12:00:00 AM EST completed [facility] Vaccine Series Complete: NOThis Data was Submitted to [facility] Via [employer]. Influenza, injectable, MDCK, preservative free, gage valent 08/13/2020 10:49:00 AM EDT completed [facility] ([facility]) Medications Medication Brand Name Start Date Product Form Dose Route Admi nistrative Instructions Pharmacy Instructions Status Indications Reaction Description Data Source(s) benzonatate 100 MG Oral Capsule BENZONATATE 08/13/2021 12:00:00 AM EDT capsule 30 TAKE ONE CAPSULE BY MOUTH THREE TIMES A DAY IF NEEDED FOR COUGH TAKE ONE CAPSULE BY MOUTH THREE TIMES A DAY IF NEEDED FOR COUGH SOLD: 08/13/2021 [facility] 325 mg 08/13/2021 12:00:00 AM EDT tablet 56 TAKE 2 TABLETS BY MOUTH EVERY 4 HOURS NEEDED FOR MILD PAIN OR TEMP OVER 101 (MAX OF 9 TABLETS PER DAY) TAKE 2 TABLETS BY MOUTH EVERY 4 HOURS NEEDED FOR MILD PAIN OR TEMP OVER 101 (MAX OF 9 TABLETS PER DAY) SOLD: 08/13/2021 [facility] 90 mcg/actuation 08/13/2021 12:00:00 AM EDT HFA aerosol inha ler 18 INHALE 4 PUFFS EVERY 4 HOURS NEEDED FOR SHORTNESS OF BREATH/WHEEZING INHALE 4 PUFFS EVERY 4 HOURS NEEDED FOR SHORTNESS OF BREATH/WHEEZING SOLD: 08/13/2021 [facility] atorvastatin 20 MG Oral Tablet ATORVASTATIN CALCIUM 07/14/2021 1 2:00:00 AM EDT tablet 90 TAKE ONE TABLET BY MOUTH EVERY D AY TAKE ONE TABLET BY MOUTH EVERY DAY SOLD: 07/18/2021 [facility] 2.5 mg 07/14/2021 12:00:00 AM EDT tablet 60 TAKE ONE TABLET BY MOUTH TWICE A DAY TAKE ONE TABLET BY MOUTH TWICE A DAY SOLD: 07/18/2021 [facility] 2.5 mg 07/14/2021 12:00:00 AM EDT tablet 60 TAKE ONE TABLET BY MOUTH TWICE A DAY TAKE ONE TABLET BY MOUTH TWICE A DAY SOLD: 08/24/2021 [facility] 10 mg 07/14/2021 12:00:00 AM EDT tablet 30 TAKE 4 TABLETS BY MOUTH DAILY FOR 3 DAYS THEN 3 TABLETS DAILY FOR 3 DAYS THEN 2 TABLETS DAILY FOR 3 DAYS THEN 1 TABLET DAILY FOR 3 DAYS AND STOP TAKE 4 TABLETS BY MOUTH DAILY FOR 3 DAYS THEN 3 TABLETS DAILY FOR 3 DAYS THEN 2 TABLETS DAILY FOR 3 DAYS THEN 1 TABLET DAILY FOR 3 DAYS AND STOP SOLD: 07/17/2021 [facility] 1 mg 07/14/2021 12:00:00 AM EDT tablet 90 TAKE ONE TABLET BY MOUTH EVERY DAY TAKE ONE TABLET BY MOUTH EVERY DAY SOLD: 07/18/2021 [facility] Finasteride 5 MG Oral Tablet FINASTERIDE 07/14/2021 12:00:00 AM EDT ta blet 90 TAKE ONE TABLET BY MOUTH EVERY DAY TAKE ONE TABLET BY MOUTH EVERY DAY SOLD: 07/18/2021 [facility] 88 mcg 07/14/2021 12:00:00 AM EDT tablet 90 TAKE ONE TABLET BY MOUTH EVERY DAY TAKE ONE TABLET BY MOUTH EVERY DAY SOLD: 07/18/2021 [facility] 1,250 mcg (50,000 unit) 07/13/2021 12:00:00 AM EDT capsule 8 TAKE 1 CAPSULE BY MOUTH ONCE WEEKLY FOR 8 WEEKS TAKE 1 CAPSULE BY MOUTH ONCE WEEKLY FOR 8 WEEKS SOLD: 07/13/2021 [facility] apixaban 2.5 MG Oral Tablet [Eliquis] Eliquis 06/17/2021 12:00:00 AM EDT ORAL active MEDENT ([facility]) atorvastatin 20 MG Oral Tablet Atorvastatin Calcium 06/17/2021 1 2:00:00 AM EDT ORAL active MEDENT ( [facility]) Prednisone 10 MG Oral Tablet Prednisone 06/17/2021 12:00:00 AM EDT ORAL completed MEDENT ([facility]) Metoprolol Tartrate 25 MG Oral Tablet Metoprolol Tartrate 12:00:00 AM EDT ORAL active MEDENT ([facility]) ramelteon 8 MG Oral Tablet Ramelteon 06/17/2021 12:00:00 AM EDT active MEDENT ([facility]) Thiamine 100 MG Oral Tablet Vitamin B-1 06/17/2021 12:00:00 AM EDT ORAL active MEDENT ([facility]) Vitamin B 12 1 MG Oral Tablet Vitamin B-12 06/17/2021 12:00:00 AM EDT ORAL active MED[facility] ([facility]) gabapentin 100 MG Oral Capsule Gabapentin 06/17/2021 12:00:00 AM EDT ORAL active [facility] ([facility]) Folic Acid 1 MG Oral Tablet Folic Acid 06/17/2021 12:00:00 AM EDT ORAL active MEDENT ([facility]) 25 mg 06/12/2021 12:00:00 AM EDT tablet 30 TAKE 1/2 TABLET BY MOUTH TWO TIMES A DAY TAKE 1/2 TABLET BY MOUTH TWO TIMES A DAY SOLD: 06/17/2021 [facility] 10 mg 06/12/2021 12:00:00 AM EDT tablet 30 TAKE 1 TABLET [10MG] BY MOUTH DAILY TAKE 1 TABLET [10MG] BY MOUTH DAILY SOLD: 06/17/2021 [facility] 2.5 mg 06/12/2021 12:00:00 AM EDT tablet 60 TAKE ONE TABLET BY MOUTH TWICE A DAY TAKE ONE TABLET BY MOUTH TWICE A DAY SOLD: 06/17/2021 [facility] atorvastatin 20 MG Oral Tablet ATORVASTATIN CALCIUM 06/12/2021 1 2:00:00 AM EDT tablet 30 TAKE 1 TABLET [20MG] BY MOUTH EV ERIN DAY AT BEDTIME TAKE 1 TABLET [20MG] BY MOUTH EVERY DAY AT BEDTIME SOLD: 06/17/2021 [facility] 100 mg 06/12/2021 12:00:00 AM EDT capsule 60 TAKE 2 CAPSULES [200MG] BY MOUTH EVERY DAY AT BEDTIME TAKE 2 CAPSULES [200MG] BY MOUTH EVERY D AY AT BEDTIME SOLD: 06/17/2021 [facility] 1 mg 06/12/2021 12:00:00 AM EDT tablet 30 TAKE ONE TABLET BY MOUTH EVERY DAY TAKE ONE TABLET BY MOUTH EVERY DAY SOLD: 06/17/2021 [facility] 500 mcg 06/12/2021 12:00:00 AM EDT tablet 60 TAKE 2 TABLETS [1,000MG] BY MOUTH DAILY TAKE 2 TABLETS [1,000MG] BY MOUTH DAILY SOLD: 06/17/2021 [facility] 88 mcg 06/12/2021 12:00:00 AM EDT tablet 30 TAKE ONE TABLET BY MOUTH EVERY DAY AT 6 IN THE MORNING TAKE ONE TABLET BY MOUTH EVERY DAY AT 6 IN THE MORNING SOLD: 06/17/2021 [facility] 100 mg 06/12/2021 12:00:00 AM EDT tablet 30 TAKE 1 TABLET [100MG] BY MOUTH DAILY TAKE 1 TABLET [100MG] BY MOUTH DAILY SOLD: 06/17/2021 [facility] Finasteride 5 MG Oral Tablet FINASTERIDE 06/12/2021 12:00:00 AM EDT ta blet 30 TAKE ONE TABLET BY MOUTH EVERY DAY TAKE ONE TABLET BY MOUTH EVERY DAY SOLD: 06/17/2021 [facility] 10 gram 04/24/2021 12:00:00 AM EDT powder in packet 12 MIX 1 PACKET WITH 1 GLASS OF WATER & DRINK 3 TIMES A WEEK (TUESDAY/ TUESDAY/ TUESDAY) MIX 1 PACKET WITH 1 GLASS OF WATER & DRINK 3 TIMES A WEEK (TUESDAY/ TUESDAY/ TUESDAY) SOLD: 04/24/2021 [facility] Sodium polystyrene sulfonate 250 MG/ML Oral Suspension [SPS] 15-20 gram/60 mL SODIUM POLYSTYRENE SULFON/SORB 04/22/2021 12:00:00 AM EDT suspension 120 TAKE 60ML BY MOUTH ONCE DAILY FOR 2 DAYS TAKE 60ML BY MOUTH ONCE DAILY FOR 2 DAYS SOLD: 04/22/2021 [facility] pantoprazole 40 MG Delayed Release Oral Tablet PANTOPRAZOLE SODIUM 04/07/2021 12:00:00 AM EDT tablet,delayed release (DR/EC) 30 T JUDY ONE TABLET BY MOUTH EVERY DAY TAKE ONE TABLET BY MOUTH EVERY DAY SOLD: 04/08/2021 [facility] 5 mg 04/07/2021 12:00:00 AM EDT tablet 30 TAKE ONE TABLET BY MOUTH EVERY DAY TAKE ONE TABLET BY MOUTH EVERY DAY SOLD: 04/08/2021 [facility] 20 mg 04/07/2021 12:00:00 AM EDT tablet 90 TAKE THREE TABLETS BY MOUTH EVERY DAY TAKE THREE TABLETS BY MOUTH EVERY DAY SOLD: 04/08/2021 [facility] 10 mg 02/05/2021 12:00:00 AM EDT tablet 30 TAKE 1 TABLET BY MOUTH DAILY TAKE 1 TABLET BY MOUTH DAILY SOLD: 02/06/2021 [facility] Immunization Adminstration,1 Vaccine/Toxoid 08/13/2020 12:00 :00 AM EDT completed [facility] ([facility]) Medication administered onsite 100 mg 05/21/2020 12:00:00 AM EDT tablet extended release 24 hr 30 TAKE ONE TABLET BY MOUTH DAILY TAKE ONE TABLET BY MOUTH DAILY SOLD: 09/07/2020 [facility] 100 mg 05/21/2020 12:00:00 AM EDT tablet extended release 24 hr 30 TAKE ONE TABLET BY MOUTH DAILY TAKE ONE TABLET BY MOUTH DAILY SOLD: 02/16/2021 [facility] 100 mg 05/21/2020 12:00:00 AM EDT tablet extended release 24 hr 30 TAKE ONE TABLET BY MOUTH DAILY TAKE ONE TABLET BY MOUTH DAILY SOLD: 12/26/2020 [facility] 100 mg 05/21/2020 12:00:00 AM EDT tablet extended release 24 hr 30 TAKE ONE TABLET BY MOUTH DAILY TAKE ONE TABLET BY MOUTH DAILY SOLD: 04/19/2021 [facility] 100 mg 05/21/2020 12:00:00 AM EDT tablet extended release 24 hr 30 TAKE ONE TABLET BY MOUTH DAILY TAKE ONE TABLET BY MOUTH DAILY SOLD: 07/07/2020 [facility] Insurance Providers Payer name Policy type / Coverage type Policy ID Covered alliance party ID Covered alliance party's relationship to delcid Policy Delcid Plan Information MEDICARE [id number] SP [id number] A [employer] [id number] WI2 [id number] [employer] [id number] WI2 [id number] MEDICARE [id number] SP [id number] A MEDICARE [id number] [facility] [id number] UMR [id number] [facility] [id number] Umr (New [place]) Commercial [id number] Family Dependent [id number] [facility] Part B [id number] Self [id number] [employer]/Umr (Old) [facility] Part B [id number] Family Dependent [id number] Umr/Uhc/[employer] Maintenance Organization (HMO) [id number] Family Dependent [id number] Umr Commercial [id number] [facility] Part B [id number] Self [id number] ANSI-Commercial [id number] MEDICARE [id number] A [facility] Part B [id number] Self [id number] ANSI-Commercial [id number] [facility] Part B [id number] Self [id number] [employer] (Old) Commercial [id number] Family Dependent [id number] [employer] Commercial [id number] Family Dependent [id number] [facility] Part B [id number] Self [id number] r [employer] Commercial [id number] Family Dependent [id number] [facility] Part B [id number] Self [id number] [employer] [id number] Family Dependent [id number] [employer] Commercial [id number] Family Dependent 91 0 MEDICARE [id number] SP [id number] [facility] [id number] WI2 [id number] MEDICARE [id number] SP [id number] [facility] [id number] WI2 [id number] [facility] Benefit [employer] [facility] Part B [id number] Self [id number] [facility] Commercial [id number] Family Dependent [id number] [facility] Benefit [employer] [facility] Part B [id number] Self [id number] Problems, Conditions, and Diagnoses Code Display Name Description Problem Type Effective Dates Data Source(s) E11.42 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 etes mellitus 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etes mellitus Problem 01/05/2021 12:00: 00 AM TARUN [facility] ([facility] M79.671 Pain in limb Pain in limb Problem 01/05/2021 12:00:00 A M EST [facility] ([facility] [id number] Pressure ulcer of right foot stage 1 Pre ssure ulcer of right foot stage 1 Problem 01/05/2021 12:00:00 AM EST [facility] ([facility] [id number] 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 Problem 01/05/2021 12:00:00 AM EST [facility] ([facility] Surgeries/Procedures Procedure Description Date Indications Data Source(s) DEBRIDEMENT SUBCUTANEOUS TISSUE 20 SQ CM/< 08/03/2021 12:00:00 AM EDT [facility] ([facility] DEBRIDEMENT NAIL ANY METHOD 08/03/2021 12:00:00 AM EDT [facility] ([facility] OFFICE OUTPATIENT VISIT 15 MINUTES 08/03/2021 12:00:00 AM EDT [facility] ([facility]) OFFICE OUTPATIENT VISIT 25 MINUTES 07/03/2021 12:00:00 AM EDT [facility] ([facility]) OFFICE OUTPATIENT VISIT 25 MINUTES 06/17/2021 12:00:00 AM EDT [facility] ([facility]) DEBRIDEMENT NAIL ANY METHOD 01/02/2021 12:00:00 AM EST [facility] ([facility] DEBRIDEMENT OPEN WOUND 20 SQ CM/< 01/02/2021 12:00:00 AM EST [facility] ([facility] Results ID Date Data Source [id number] 08/12/2021 03:35:00 PM EDT [facility] Name Value Range Interpretation Code Description Data Shameka rce(s) Supporting Document(s) Respiratory pathogens identified [Type] in Nasopharynx by Probe and target amplification method SARS-CoV-2 (COVID 19) [facility] This lab was ordered by [facility] a nd reported by [facility]. ID Date Data Source [id number] 07/01/2021 11:21:00 AM EDT [facility] ([facility]) Name Value Range Interpretation Code Description Data Shamkea rce(s) Supporting Document(s) Leukocytes [#/volume] in Blood by Automated count 13.6 x10*3/UL 4.1-1 0.9 [facility] ([facility]) NOTE: CBC VERIFIED Erythrocytes [#/volume] in Blood by Automated count 4.09 x10*6/UL 4.2 0-6.30 [facility] Hematocrit [Volume Fraction] of Blood by Automated count 38.1 % 3 7.0-51.0 [facility] Hemoglobin [Mass/volume] in Blood 12.9 g/dL 12.0-18.0 [facility] ([facility]) MCV 93.2 fL 80.0-97.0 [facility] ([facility]) MCHC 33.8 g/dL 31.0-38.0 [facility] ([facility]) MCH 31.5 pg 26.0-32.0 [facility] ([facility]) Erythrocyte distribution width [Ratio] by Automated count 14.6 % 11.6-13.7 [facility] ([facility]) MPV 8.0 FL 7.8-11.0 [facility] ([facility]) Platelets [#/volume] in Blood by Automated count 282 x10*3/UL 140-440 [facility] ([facility]) Mid % 2.3 % 1.7-9.3 [facility] ([facility]) Lymph % 8.3 % 10.0-58.5 [facility] ([facility]) Neut % 89.4 % 37.0-92.0 [facility] ([facility]) Lymph # 1.1 x10*3/UL 0.6-4.1 [facility] ([facility]) Mid # 0.3 x10*3/UL 0.1-0.6 [facility] ([facility]) Neut # 12.2 x10*3/UL 2.0-7.8 [facility] ([facility]) ID Date Data Source [id number] 07/01/2021 11:21:00 AM EDT [facility] ([facility]) Name Value Range Interpretation Code Description Data Shameka rce(s) Supporting Document(s) Thyrotropin [Units/volume] in Serum or Plasma by Detec tion limit <= 0.05 mIU/L 0.88 uIU/mL 0.36-3.74 [facility] ([facility] ) ID Date Data Source [id number] 07/01/2021 11:21:00 AM EDT [facility] Name Value Range Interpretation Code Description Data Shameka rce(s) Supporting Document(s) Cholesterol [Mass/volume] in Serum or Plasma 184 mg/dL 131-200 [facility] ([facility]) Triglyceride [Mass/volume] in Serum or Plasma 146 mg/dL 30-150 [facility] ([facility]) Cholesterol in HDL [Mass/volume] in Serum or Plasma 80 mg/dL 35-60 [facility] ([facility]) Cholesterol in LDL [Mass/volume] in Serum or Plasma by calcu lation 75 CALC 50-159 [facility] ID Date Data Source [id number] 07/01/2021 11:21:00 AM EDT [facility]) Name Value Range Interpretation Code Description Data Shameka rce(s) Supporting Document(s) Glucose [Mass/volume] in Serum or Plasma 104 mg/dL 74-99 [facility] ([facility]) 100-125 mg/dL PRE-DIABETES/FASTING >126 mg/dL DIABETES/FASTING Creatinine 2.8 mg/dL 0.6-1.3 [facility] Urea nitrogen [Mass/volume] in Serum or Plasma 22 mg/dL 7-18 [facility] ([facility]) NOTE: BUN,CREAT VERIFIED Potassium [Moles/volume] in Serum or Plasma 3.6 meq/L 3.5-5.1 [facility] ([facility]) Sodium [Moles/volume] in Serum or Plasma 136 meq/L 136-145 [facility] ([facility]) Chloride [Moles/volume] in Serum or Plasma 96 meq/L 98-107 [facility] ([facility]) Carbon dioxide, total [Moles/volume] in Serum or Plasma 34 meq/L 21 -32 [facility] ([facility]) Calcium [Mass/volume] in Serum or Plasma 9.1 mg/dL 8.5-10.1 [facility] ([facility]) Alkaline phosphatase isoenzyme [Units/volume] in Serum or Pl asma 98 mg/dL 46-116 [facility] ([facility]) Total Bilirubin 0.5 mg/dL 0.2-1.0 [facility] ([facility]) Aspartate aminotransferase [Enzymatic activity/volume] in Serum or Plasma 28 U/L 15-37 [facility] ([facility] ) Alanine aminotransferase [Enzymatic activity/volume] in Seru m or Plasma 25 U/L 12-78 [facility] ([facility]) Albumin [Mass/volume] in Serum or Plasma 3.1 g/dL 3.4-5.0 [facility] ([facility]) Proteinase 3 Ab [Units/volume] in Serum 7.0 g/dL 6.4-8.2 [facility] ([facility]) A/G Ratio 0.79 CALC 1.00-1.90 [facility]) Glomerular filtration rate/1.73 sq M pre dicted among non-blacks [Volume Rate/Area] in Serum or Plasma by Creatinine-based formula (MDRD) 22 mL/min [facility] ([facility]) Glomerular filtration rate/1.73 sq M pre dicted among blacks [Volume Rate/Area] in Serum or Plasma by Creatinine-based formula (MDRD) 27 mL/min [facility] <content>CHRONIC KIDNEY DISEASE STAGING PER NKF</content>
<content></content>
<content>STAGE I & II GFR >= 60 NORMAL TO MILDLY DECREASED</content>
<content>STAGE III GFR 30-59 MODERATELY DECREASED</content>
<content>STAGE IV GFR 15-29 SEVERELY DECREASED</content>
<content>STAGE V GFR <15 VERY LITTLE GFR LEFT</content>
<content>ESRD GFR <15 ON STAMPING MACHINE OPERATOR</content>
<content></content> ID Date Data Source [id number] 07/01/2021 11:21:00 AM EDT [facility]) Name Value Range Interpretation Code Description Data Shameka rce(s) Supporting Document(s) Hemoglobin A1c/Hemoglobin.total in Blood 5.5 % [facility] Lab Result Notes: Pre-Diabetes 5.7 - 6.4 % Diabetes = or > 6.5% Glucose mean value [Mass/volume] in Blood Estimated fr om glycated hemoglobin 111 mg/dL 60-110 [facility] ([facility] ) ID Date Data Source [id number] 07/01/2021 11:21:00 AM EDT [facility] ([facility]) Name Value Range Interpretation Code Description Data Shameka rce(s) Supporting Document(s) Hemoglobin A1c/Hemoglobin.total in Blood Laboratory test result [facility] ID Date Data Source [id number] 06/17/2021 11:03:00 AM EDT [facility] ([facility]) Name Value Range Interpretation Code Description Data Shameka rce(s) Supporting Document(s) Thyrotropin [Units/volume] in Serum or Plasma by Detec tion limit <= 0.05 mIU/L 2.97 uIU/mL 0.36-3.74 [facility] ([facility] ) ID Date Data Source [id number] 06/17/2021 11:03:00 AM EDT [facility] ([facility]) Name Value Range Interpretation Code Description Data Shameka rce(s) Supporting Document(s) Glucose [Mass/volume] in Serum or Plasma 149 mg/dL 74-99 [facility]) 100-125 mg/dL PRE-DIABETES/FASTING >126 mg/dL DIABETES/FASTING Urea nitrogen [Mass/volume] in Serum or Plasma 27 mg/dL 7-18 [facility]) NOTE: BUN,CREAT VERIFIED Creatinine 3.1 mg/dL 0.6-1.3 [facility] Chloride [Moles/volume] in Serum or Plasma 102 meq/L 98-107 [facility]) Potassium [Moles/volume] in Serum or Plasma 3.8 meq/L 3.5-5.1 [facility] Sodium [Moles/volume] in Serum or Plasma 140 meq/L 136-145 [facility] Carbon dioxide, total [Moles/volume] in Serum or Plasma 33 meq/L 21 -32 [facility] Calcium [Mass/volume] in Serum or Plasma 9.1 mg/dL 8.5-10.1 [facility] Glomerular filtration rate/1.73 sq M pre dicted among non-blacks [Volume Rate/Area] in Serum or Plasma by Creatinine-based formula (MDRD) 20 mL/min [facility] Glomerular filtration rate/1.73 sq M pre dicted among blacks [Volume Rate/Area] in Serum or Plasma by Creatinine-based formula (MDRD) 24 mL/min [facility] ([facility]) <content>CHRONIC KIDNEY DISEASE STAGING PER NKF</content>
<content></content>
<content>STAGE I & II GFR >= 60 NORMAL TO MILDLY DECREASED</content>
<content>STAGE III GFR 30-59 MODERATELY DECREASED</content>
<content>STAGE IV GFR 15-29 SEVERELY DECREASED</content>
<content>STAGE V GFR <15 VERY LITTLE GFR LEFT</content>
<content>ESRD GFR <15 ON STAMPING MACHINE OPERATOR</content>
<content></content> ID Date Data Source [id number] 06/17/2021 11:03:00 AM EDT [facility]) Name Value Range Interpretation Code Description Data Shameka rce(s) Supporting Document(s) Leukocytes [#/volume] in Blood by Automated count 11.2 x10*3/UL 4.1-1 0.9 [facility] CRITICAL: CBC VERIFIED Erythrocytes [#/volume] in Blood by Automated count 4.02 x10*6/UL 4.2 0-6.30 [facility] Hematocrit [Volume Fraction] of Blood by Automated count 38.2 % 3 7.0-51.0 [facility] MCV 95.0 fL 80.0-97.0 [facility] ([facility]) Hemoglobin [Mass/volume] in Blood 12.6 g/dL 12.0-18.0 [facility] ([facility]) MCH 31.5 pg 26.0-32.0 [facility] ([facility]) MCHC 33.1 g/dL 31.0-38.0 [facility] ([facility]) Platelets [#/volume] in Blood by Automated count 183 x10*3/UL 140-440 [facility] Erythrocyte distribution width [Ratio] by Automated count 16.3 % 11.6-13.7 [facility] ([facility]) MPV 8.1 FL 7.8-11.0 [facility] ([facility]) Lymph % 7.0 % 10.0-58.5 [facility] ([facility]) Neut % 90.3 % 37.0-92.0 [facility] ([facility]) Mid % 2.7 % 1.7-9.3 [facility] ([facility]) Lymph # 0.7 x10*3/UL 0.6-4.1 [facility] ([facility]) Mid # 0.4 x10*3/UL 0.1-0.6 [facility] ([facility]) Neut # 10.1 x10*3/UL 2.0-7.8 [facility] ([facility]) ID Date Data Source [id number] 05/22/2021 10:08:00 PM EDT [facility] ([facility]) Name Value Range Interpretation Code Description Data Shameka rce(s) Supporting Document(s) CPK Creatine Phosphokinase 55 U/L 39-308 [facility] ([facility]) CK-MB Value Mass 3.2 ng/mL [facility] ([facility]) MB/CK Relative Index 5.82 [facility] ([facility]) <content>DIAGNOSIS CRITERIA</content>
<content>MMB ng/ml Relative Index (RI)</content>
<content>NON-AMI < or = 5 N/A</content>
<content>[place] ZONE > 5 < or = 4</content>
<content>AMI > 5 > 4</content>
<content></content> Troponin I 0.13 ng/mL [facility]) <content>Troponin I Reference Interval f or Siemens [place] LOCI:</content>
<content></content>
<content>99th Percentile= 0.00-0.045 ng/ml</content>
<content></content>
<content>Risk Stratification:</content>
<content><= 0.10 ng/ml Decreased Risk for Adverse Clinical</content>
<content>Events.</content>
<content>0.10-1.50 ng/ml Increased Risk for Adverse Clinical</content>
<content>Events. Evaluation of additional</content>
<content>criterion and/or repeat testing in 2-6</content>
<content>hours is suggested to rule out myocardial</content>
<content>damage.</content>
<content>>= 1.50 ng/ml Indicative of Myocardial Injury.</content>
<content></content> ID Date Data Source [id number] 05/22/2021 10:08:00 PM EDT [facility] Name Value Range Interpretation Code Description Data Shameka rce(s) Supporting Document(s) C reactive protein [Mass/volume] in Serum or Plasma by High sensitivity method 10.10 mg/dL 0.00-0.30 [facility] ([facility] ) ID Date Data Source [id number] 05/22/2021 08:23:00 PM EDT [facility] ([facility]) Name Value Range Interpretation Code Description Data Shameka rce(s) Supporting Document(s) Influenza A Amplification Laboratory test result [facility]) Negative results do not preclude influen za or RSV virus infection and should not be used as the sole basis for treatment or other patient management decisions. Influenza B Amplification Laboratory test result [facility] ([facility]) Negative results do not preclude influen za or RSV virus infection and should not be used as the sole basis for treatment or other patient management decisions. RSV Amplification Laboratory test result [facility] ([facility]) Negative results do not preclude influen za or RSV virus infection and should not be used as the sole basis for treatment or other patient management decisions. Laboratory test finding (navigational concept) Laboratory test result [facility] ([facility]) A false negative result may occur if a s pecimen is improperly collected, transported or handled. False [...] pathogens. DISCLAIMER: Testing was performed using the [employer] SARS-CoV-2 test. This test was developed and its performance characteristics determined by [employer]. This test has not been FDA cleared [...] the authorization is terminated or revoked sooner. ID Date Data Source [id number] 05/22/2021 08:23:00 PM EDT [facility] Name Value Range Interpretation Code Description Data Shameka rce(s) Supporting Document(s) SARS coronavirus 2 RNA [Presence] in Res piratory specimen by CHRISTOPHER with probe detection NEGATIVE [facility] This lab was ordered by [facility] a nd reported by [facility]. ID Date Data Source [id number] 05/22/2021 07:08:00 PM EDT [facility] Name Value Range Interpretation Code Description Data Shameka rce(s) Supporting Document(s) CK-MB Value Mass 3.1 ng/mL [facility] ([facility]) CPK Creatine Phosphokinase 58 U/L 39-308 [facility] ([facility]) MB/CK Relative Index 5.34 [facility] ([facility]) <content>DIAGNOSIS CRITERIA</content>
<content>MMB ng/ml Relative Index (RI)</content>
<content>NON-AMI < or = 5 N/A</content>
<content>[place] ZONE > 5 < or = 4</content>
<content>AMI > 5 > 4</content>
<content></content> Troponin I 0.14 ng/mL [facility] ([facility]) <content>Troponin I Reference Interval f or Siemens [place] LOCI:</content>
<content></content>
<content>99th Percentile= 0.00-0.045 ng/ml</content>
<content></content>
<content>Risk Stratification:</content>
<content><= 0.10 ng/ml Decreased Risk for Adverse Clinical</content>
<content>Events.</content>
<content>0.10-1.50 ng/ml Increased Risk for Adverse Clinical</content>
<content>Events. Evaluation of additional</content>
<content>criterion and/or repeat testing in 2-6</content>
<content>hours is suggested to rule out myocardial</content>
<content>damage.</content>
<content>>= 1.50 ng/ml Indicative of Myocardial Injury.</content>
<content></content> ID Date Data Source [id number] 05/22/2021 07:08:00 PM EDT [facility] ([facility]) Name Value Range Interpretation Code Description Data Shameka rce(s) Supporting Document(s) Alt/SGPT 53 U/L 12-78 [facility] Ast/Sgot 29 U/L 7-37 [facility]) Alkaline Phosphatase 131 U/L 45-117 [facility] ([facility]) Bilirubin,Total 0.4 mg/dL 0.2-1.0 [facility] ([facility]) Bilirubin,Direct 0.2 mg/dL 0.0-0.2 [facility] ([facility]) Total Protein 5.8 GM/DL 6.4-8.2 [facility] ([facility]) Albumin/Globulin Ratio 0.8 [facility] ([facility]) Albumin 2.6 GM/DL 3.2-5.2 [facility] ([facility]) ID Date Data Source [id number] 05/22/2021 07:08:00 PM EDT [facility] ([facility]) Name Value Range Interpretation Code Description Data Shameka rce(s) Supporting Document(s) Blood Urea Nitrogen 28 mg/dL 7-18 [facility] ([facility]) Glucose, Fasting 94 mg/dL 70-100 [facility] ([facility]) Creatinine For GFR 4.03 mg/dL 0.70-1.30 [facility] ([facility]) Glomerular Filtration Rate 15.4 [facility] ([facility]) <content>Units are mL/min/1.73 m2</content>
<content></content>
<content>Chronic Kidney Disease Staging per NKF:</content>
<content></content>
<content>Stage I & II GFR >=60 Normal to Mildly Decreased</content>
<content>Stage III GFR 30- 59 Moderately Decreased</content>
<content>Stage IV GFR 15-29 Severely Decreased</content>
<content>Stage V GFR <15 Very Little GFR Left</content>
<content>ESRD GFR <15 on STAMPING MACHINE OPERATOR</content>
<content></content> Sodium Level 141 meq/L 136-145 [facility] ([facility]) Potassium Serum 3.8 meq/L 3.5-5.1 [facility] ([facility]) Chloride Level 102 meq/L 98-107 [facility] ([facility]) Carbon Dioxide Level 29 meq/L 21-32 [facility] ([facility]) Anion Gap 10 meq/L 8-16 [facility] ([facility] [place]) Calcium Level 7.9 mg/dL 8.8-10.2 [facility] ([facility]) ID Date Data Source [id number] 05/22/2021 07:08:00 PM EDT [facility] ([facility]) Name Value Range Interpretation Code Description Data Shameka rce(s) Supporting Document(s) Red Blood Count 3.35 10 4.30-6.10 [facility] ([facility]) White Blood Count 8.4 10 4.0-10.0 [facility] ([facility]) Hematocrit 33.7 % 42.0-52.0 [facility] Hemoglobin 10.8 g/dL 13.5-17.5 [facility] ([facility]) Mean Corpuscular Hemoglobin 32.2 pg 27.0-33.0 MT DENT ([facility]) Mean Corpuscular Volume 100.6 fl 80.0-96.0 [facility] ([facility]) Red Cell Distribution Width 15.8 % 11.5-14.5 ME DENT ([facility]) Mean Corpuscular HGB Conc 32.0 g/dL 32.0-36.5 MEDE NT ([facility]) Nucleated Red Blood Cell % 0.2 % 0-0 MED E[facility] ([facility]) Platelet Count, Automated 127 10 150-450 MEDE NT ([facility]) ID Date Data Source [id number] 05/22/2021 07:08:00 PM EDT [facility] ([facility]) Name Value Range Interpretation Code Description Data Shameka rce(s) Supporting Document(s) Neutrophils 64 % 28-66 [facility] ([facility]) Bands 12 % [facility] ([facility] [place]) Lymphocytes 11 % 16-44 [facility] ([facility]) Basophils 1 % 0-1 [facility] ([facility]) Monocytes 9 % 0-5 [facility] Metamyelocytes 1 % 0-0 [facility] ([facility]) Myelocytes 2 % 0-0 [facility] ([facility]) ID Date Data Source [id number] 05/22/2021 07:08:00 PM EDT [facility]) Name Value Range Interpretation Code Description Data Shameka rce(s) Supporting Document(s) Platelets [#/volume] in Blood by Estimate Laboratory test result [facility] ID Date Data Source [id number] 05/22/2021 07:08:00 PM EDT [facility] Name Value Range Interpretation Code Description Data Shameka rce(s) Supporting Document(s) Thyrotropin [Units/volume] in Serum or Plasma by Detec tion limit <= 0.05 mIU/L 1.940 uIU/ML 0.358-3.740 [facility] Thyroxine (T4) free [Mass/volume] in Serum or Plasma 0.90 ng/dL 0.76- 1.46 [facility] ID Date Data Source [id number] 05/18/2021 01:03:00 PM EDT [facility] Name Value Range Interpretation Code Description Data Shameka rce(s) Supporting Document(s) SARS coronavirus 2 RNA [Presence] in Res piratory specimen by CHRISTOPHER with probe detection NEGATIVE [facility] This lab was ordered by [facility] a nd reported by [facility]. ID Date Data Source [id number] 05/07/2021 04:05:00 PM EDT [facility]) Name Value Range Interpretation Code Description Data Shameka rce(s) Supporting Document(s) Laboratory test finding (navigational concept) 0.10 ng/mL 0.00-0.08 [facility]) ID Date Data Source [id number] 05/07/2021 03:51:00 PM EDT [facility] ([facility]) Name Value Range Interpretation Code Description Data Shameka rce(s) Supporting Document(s) Laboratory test finding (navigational concept) 33.0 % 38.0-51.0 [facility] ([facility]) Laboratory test finding (navigational concept) 89 mg/dL 70-105 [facility] ([facility]) Laboratory test finding (navigational concept) 140 meq/L 136-145 [facility] ([facility]) Laboratory test finding (navigational concept) 3.9 meq/L 3.5-5.1 [facility] Laboratory test finding (navigational concept) 4.2 mg/dL 4.5-5.3 [facility] Laboratory test finding (navigational concept) 100 meq/L 98-109 [facility] Laboratory test finding (navigational concept) 24.0 MM/L 23.0-27.0 [facility] Laboratory test finding (navigational concept) 41 mg/dL 8-26 [facility] Laboratory test finding (navigational concept) 4.4 mg/dL 0.6-1.3 [facility] ID Date Data Source [id number] 05/07/2021 03:22:00 PM EDT [facility] Name Value Range Interpretation Code Description Data Shameka rce(s) Supporting Document(s) Thyrotropin [Units/volume] in Serum or Plasma by Detec tion limit <= 0.05 mIU/L 0.505 uIU/ML 0.358-3.740 [facility] ID Date Data Source [id number] 05/07/2021 03:22:00 PM EDT [facility] Name Value Range Interpretation Code Description Data Shameka rce(s) Supporting Document(s) Blood Urea Nitrogen 41 mg/dL 7-18 [facility] Glucose, Fasting 90 mg/dL 70-100 [facility] ([facility] Creatinine For GFR 4.06 mg/dL 0.70-1.30 [facility] Glomerular Filtration Rate 15.3 MED E[facility] ([facility] <content>Units are mL/min/1.73 m2</content>
<content></content>
<content>Chronic Kidney Disease Staging per NKF:</content>
<content></content>
<content>Stage I & II GFR >=60 Normal to Mildly Decreased</content>
<content>Stage III GFR 30- 59 Moderately Decreased</content>
<content>Stage IV GFR 15-29 Severely Decreased</content>
<content>Stage V GFR <15 Very Little GFR Left</content>
<content>ESRD GFR <15 on STAMPING MACHINE OPERATOR</content>
<content></content> Sodium Level 140 meq/L 136-145 [facility] ([facility]) Potassium Serum 3.9 meq/L 3.5-5.1 [facility] ([facility]) Carbon Dioxide Level 27 meq/L 21-32 [facility] ([facility]) Chloride Level 106 meq/L 98-107 [facility] ([facility]) Anion Gap 7 meq/L 8-16 [facility] ([facility] [place]) Calcium Level 7.4 mg/dL 8.8-10.2 [facility] ([facility]) ID Date Data Source [id number] 05/07/2021 03:22:00 PM EDT [facility] ([facility]) Name Value Range Interpretation Code Description Data Shameka rce(s) Supporting Document(s) Ast/Sgot 70 U/L 7-37 [facility] ([facility] [place]) Alt/SGPT 69 U/L 12-78 [facility] ([facility]) Alkaline Phosphatase 84 U/L 45-117 [facility] ([facility]) Bilirubin,Direct 0.2 mg/dL 0.0-0.2 [facility] ([facility]) Bilirubin,Total 0.5 mg/dL 0.2-1.0 [facility] ([facility]) Total Protein 5.3 GM/DL 6.4-8.2 [facility] ([facility]) Albumin/Globulin Ratio 0.8 [facility] ([facility]) Albumin 2.4 GM/DL 3.2-5.2 [facility] ([facility]) ID Date Data Source [id number] 05/07/2021 03:22:00 PM EDT [facility] ([facility]) Name Value Range Interpretation Code Description Data Shameka rce(s) Supporting Document(s) Ammonia [Mass/volume] in Blood Laboratory test result [facility] ([facility]) ID Date Data Source [id number] 05/07/2021 03:22:00 PM EDT [facility] ([facility]) Name Value Range Interpretation Code Description Data Shameka rce(s) Supporting Document(s) White Blood Count 6.9 10 4.0-10.0 [facility] ([facility]) Hemoglobin 11.0 g/dL 13.5-17.5 [facility] ([facility]) Red Blood Count 3.49 10 4.30-6.10 [facility] ([facility]) Hematocrit 34.2 % 42.0-52.0 [facility] ([facility]) Mean Corpuscular Volume 98.0 fl 80.0-96.0 [facility] ([facility]) Mean Corpuscular Hemoglobin 31.5 pg 27.0-33.0 ME DENT ([facility]) Red Cell Distribution Width 13.3 % 11.5-14.5 ME [facility] ([facility]) Mean Corpuscular HGB Conc 32.2 g/dL 32.0-36.5 MEDE NT ([facility]) Neutrophils % 82.7 % 36.0-66.0 [facility] ([facility]) Platelet Count, Automated 108 10 150-450 MEDE NT ([facility]) [place] % 5.1 % 2.0-8.0 [facility] Lymph % 5.7 % 24.0-44.0 [facility] Baso % 0.3 % 0.0-1.0 [facility] Eos % 3.6 % 0.0-3.0 [facility] Immature Granulocyte % 2.6 % 0-3.0 [facility] ([facility]) Nucleated Red Blood Cell % 0.0 % 0-0 MED ENT ([facility]) Lymph # 0.4 10 1.5-5.0 [facility] ([facility]) Neutrophils # 5.7 10 1.5-8.5 [facility] ([facility]) Eos # 0.3 10 0.0-0.5 [facility] ([facility]) [place] # 0.4 10 0.0-0.8 [facility] ([facility]) Baso # 0.0 10 0.0-0.2 [facility] ([facility]) ID Date Data Source [id number] 05/07/2021 01:54:00 PM EDT [facility] ([facility]) Name Value Range Interpretation Code Description Data Shameka rce(s) Supporting Document(s) Influenza A Amplification Laboratory test result [facility] ([facility]) Negative results do not preclude influen za or RSV virus infection and should not be used as the sole basis for treatment or other patient management decisions. Influenza B Amplification Laboratory test result [facility] ([facility]) Negative results do not preclude influen za or RSV virus infection and should not be used as the sole basis for treatment or other patient management decisions. RSV Amplification Laboratory test result [facility] ([facility]) Negative results do not preclude influen za or RSV virus infection and should not be used as the sole basis for treatment or other patient management decisions. Laboratory test finding (navigational concept) Laboratory test result [facility] ([facility]) A false negative result may occur if a s pecimen is improperly collected, transported or handled. False [...] pathogens. DISCLAIMER: Testing was performed using the [employer] SARS-CoV-2 test. This test was developed and its performance characteristics determined by [employer]. This test has not been FDA cleared [...] the authorization is terminated or revoked sooner. ID Date Data Source [id number] 05/07/2021 01:54:00 PM EDT [facility] Name Value Range Interpretation Code Description Data Shameka e(s) Supporting Document(s) SARS coronavirus 2 RNA [Presence] in Res piratory specimen by CHRISTOPHER with probe detection NEGATIVE [facility] This lab was ordered by [facility] a nd reported by [facility]. ID Date Data Source [id number] 04/27/2021 08:48:00 PM EDT [facility] ([facility]) Name Value Range Interpretation Code Description Data Shameka rce(s) Supporting Document(s) CK-MB Value Mass 7.7 ng/mL [facility]) CPK Creatine Phosphokinase 850 U/L 39-308 MED E[facility] ([facility]) Troponin I 1.15 ng/mL [facility]) <content>Troponin I Reference Interval f or Siemens [place] LOCI:</content>
<content></content>
<content>99th Percentile= 0.00-0.045 ng/ml</content>
<content></content>
<content>Risk Stratification:</content>
<content><= 0.10 ng/ml Decreased Risk for Adverse Clinical</content>
<content>Events.</content>
<content>0.10-1.50 ng/ml Increased Risk for Adverse Clinical</content>
<content>Events. Evaluation of additional</content>
<content>criterion and/or repeat testing in 2-6</content>
<content>hours is suggested to rule out myocardial</content>
<content>damage.</content>
<content>>= 1.50 ng/ml Indicative of Myocardial Injury.</content>
<content></content> MB/CK Relative Index 0.91 [facility] ([facility]) <content>DIAGNOSIS CRITERIA</content>
<content>MMB ng/ml Relative Index (RI)</content>
<content>NON-AMI < or = 5 N/A</content>
<content>S[place]HER[place] ZONE > 5 < or = 4</content>
<content>AMI > 5 > 4</content>
<content></content> ID Date Data Source [id number] 04/27/2021 05:48:00 PM EDT [facility] Name Value Range Interpretation Code Description Data Shameka rce(s) Supporting Document(s) SARS coronavirus 2 RNA [Presence] in Res piratory specimen by CHRISTOPHER with probe detection NEGATIVE [facility] This lab was ordered by [facility] a nd reported by [facility]. ID Date Data Source [id number] 04/01/2021 01:04:00 PM EDT [facility] ([facility]) Name Value Range Interpretation Code Description Data Shameka rce(s) Supporting Document(s) Prothrombin Time 13.7 s 12.5-14.3 [facility] ([facility]) Inr 1.03 [facility] ([facility]) THERAPUTIC HUMAN INR VALUES INDICATIONS NORMAL RANGES PROPHYLAXIS/TREATMENT OF: VENOUS THROMBOSIS 2.0-3.0 PULMONARY EMBOLISM 2.0-3.0 PREVENTION OF SYSTEMIC EMBOLISM FROM: TISSUE HEART VALVES 2.0-3.0 ACUTE MYOCARDIAL INFARCTION 2.0-3.0 VALVULAR HEART DISEASE 2.0-3.0 ATRIAL FIBRILLATION 2.0-3.0 MECHANICAL VALVES(HIGH RISK) 2.5-3.5 RECURRENT MYOCARDIAL INFARCTION 2.5-3.5 ID Date Data Source [id number] 04/01/2021 01:04:00 PM EDT [facility] ([facility]) Name Value Range Interpretation Code Description Data Shameka rce(s) Supporting Document(s) White Blood Count 9.4 10 4.0-10.0 [facility] ([facility]) Red Blood Count 3.76 10 4.30-6.10 [facility] ([facility]) Hemoglobin 11.9 g/dL 13.5-17.5 [facility] ([facility]) Mean Corpuscular Hemoglobin 31.6 pg 27.0-33.0 ME [facility] ([facility]) Mean Corpuscular Volume 98.7 fl 80.0-96.0 [facility] ([facility]) Hematocrit 37.1 % 42.0-52.0 [facility] ([facility]) Red Cell Distribution Width 12.9 % 11.5-14.5 ME [facility] ([facility]) Mean Corpuscular HGB Conc 32.1 g/dL 32.0-36.5 MEDE NT ([facility]) Nucleated Red Blood Cell % 0.0 % 0-0 MED E[facility] ([facility]) Platelet Count, Automated 193 10 150-450 MEDE NT ([facility]) ID Date Data Source [id number] 08/12/2020 11:22:00 AM EDT [facility] Name Value Range Interpretation Code Description Data Shameka rce(s) Supporting Document(s) Laboratory test finding (navigational concept) 2888.3 mg/L 1.3-20.0 [facility] ([facility]) NOTE: DILUTED AND VERIFIED Urine Creatinine 372.9 mg/dL 30.0-125.0 [facility] ([facility]) Microalb/Creat Ratio 774.6 ug/mg 0.0-30.0 [facility] ([facility]) ID Date Data Source [id number] 08/12/2020 11:22:00 AM EDT [facility] ([facility]) Name Value Range Interpretation Code Description Data Shameka rce(s) Supporting Document(s) Cholesterol [Mass/volume] in Serum or Plasma 165 mg/dL 131-200 [facility] ([facility] Triglyceride [Mass/volume] in Serum or Plasma 115 mg/dL 30-150 [facility] ([facility]) Cholesterol in LDL [Mass/volume] in Serum or Plasma by calcu lation 90 CALC 50-159 [facility] ([facility] ) Cholesterol in HDL [Mass/volume] in Serum or Plasma 52 mg/dL 35-60 [facility] ([facility]) ID Date Data Source [id number] 08/12/2020 11:22:00 AM EDT [facility] ([facility]) Name Value Range Interpretation Code Description Data Shameka rce(s) Supporting Document(s) Glucose [Mass/volume] in Serum or Plasma 125 mg/dL 74-99 [facility] ([facility]) 100-125 mg/dL PRE-DIABETES/FASTING >126 mg/dL DIABETES/FASTING Potassium [Moles/volume] in Serum or Plasma 4.5 meq/L 3.5-5.1 [facility] ([facility]) Creatinine [Mass/volume] in Serum or Plasma 1.6 mg/dL 0.6-1.3 [facility] ([facility]) Urea nitrogen [Mass/volume] in Serum or Plasma 19 mg/dL 7-18 [facility] ([facility]) Sodium [Moles/volume] in Serum or Plasma 138 meq/L 136-145 [facility] ([facility]) Calcium [Mass/volume] in Serum or Plasma 9.0 mg/dL 8.5-10.1 [facility] ([facility]) Chloride [Moles/volume] in Serum or Plasma 102 meq/L 98-107 [facility] ([facility]) Carbon dioxide, total [Moles/volume] in Serum or Plasma 27 meq/L 21 -32 [facility] ([facility]) Alanine aminotransferase [Enzymatic activity/volume] in Seru m or Plasma 48 U/L 12-78 [facility] ([facility] ) Total Bilirubin 0.8 mg/dL 0.2-1.0 [facility] ([facility]) Aspartate aminotransferase [Enzymatic activity/volume] in Serum or Plasma 67 U/L 15-37 [facility] ([facility]) Alkaline phosphatase isoenzyme [Units/volume] in Serum or Pl asma 83 mg/dL 46-116 [facility] ([facility] ) Albumin/Globulin [Mass Ratio] in Serum or Plasma 0.81 CALC 1.00-1.90 [facility] ([facility]) Proteinase 3 Ab [Units/volume] in Serum 7.8 g/dL 6.4-8.2 [facility] ([facility]) Albumin [Mass/volume] in Serum or Plasma 3.5 g/dL 3.4-5.0 [facility] ([facility]) Glomerular filtration rate/1.73 sq M pre dicted among non-blacks [Volume Rate/Area] in Serum or Plasma by Creatinine-based formula (MDRD) 42 mL/min [facility] ([facility]) Glomerular filtration rate/1.73 sq M pre dicted among blacks [Volume Rate/Area] in Serum or Plasma by Creatinine-based formula (MDRD) 51 mL/min [facility] ([facility]) <content>CHRONIC KIDNEY DISEASE STAGING PER NKF</content>
<content></content>
<content>STAGE I & II GFR >= 60 NORMAL TO MILDLY DECREASED</content>
<content>STAGE III GFR 30-59 MODERATELY DECREASED</content>
<content>STAGE IV GFR 15-29 SEVERELY DECREASED</content>
<content>STAGE V GFR <15 VERY LITTLE GFR LEFT</content>
<content>ESRD GFR <15 ON STAMPING MACHINE OPERATOR</content>
<content></content>
<content></content> ID Date Data Source [id number] 08/12/2020 11:22:00 AM EDT [facility] ([facility]) Name Value Range Interpretation Code Description Data Sahmeka rce(s) Supporting Document(s) Glucose mean value [Mass/volume] in Blood Estimated fr om glycated hemoglobin 131 mg/dL 60-110 [facility] Hemoglobin A1c/Hemoglobin.total in Blood 6.2 % [facility] ([facility]) Lab Result Notes: Pre-Diabetes 5.7 - 6.4 % Diabetes = or > 6.5% ID Date Data Source [id number] 08/12/2020 11:22:00 AM EDT [facility] Name Value Range Interpretation Code Description Data Shameka rce(s) Supporting Document(s) Hematocrit [Volume Fraction] of Blood by Automated count 44.5 % 3 7.0-51.0 [facility] ([facility]) Erythrocytes [#/volume] in Blood by Automated count 4.85 x10*6/UL 4.2 0-6.30 [facility] ([facility]) Hemoglobin [Mass/volume] in Blood 15.6 g/dL 12.0-18.0 [facility] ([facility]) Leukocytes [#/volume] in Blood by Automated count 8.7 x10*3/UL 4.1-10 .9 [facility] ([facility]) MCHC 35.1 g/dL 31.0-38.0 [facility] ([facility] MCV 91.7 fL 80.0-97.0 [facility] ([facility]) MCH 32.2 pg 26.0-32.0 [facility] ([facility]) Platelet mean volume [Entitic volume] in Blood by Alessandro-Magda 8.2 FL 7.8-11.0 [facility] ([facility]) Platelets [#/volume] in Blood by Automated count 222 x10*3/UL 140-440 [facility] ([facility] Lymphocytes/100 leukocytes in Blood by Automated count 7.5 % 10. 0-58.5 [facility] ([facility]) Erythrocyte distribution width [Ratio] by Automated count 13.4 % 11.6-13.7 [facility] ([facility]) Neut % 85.1 % 37.0-92.0 [facility] ([facility]) Lymph # 0.6 x10*3/UL 0.6-4.1 [facility] ([facility]) Mid # 0.7 x10*3/UL 0.1-0.6 [facility] ([facility]) Mid % 7.4 % 1.7-9.3 [facility] ([facility] Neutrophils [#/volume] in Semen by Manual count 7.4 x10*3/UL 2.0-7.8 [facility] ([facility]) ID Date Data Source [id number] 08/12/2020 11:22:00 AM EDT [facility] ([facility]) Name Value Range Interpretation Code Description Data Shameka rce(s) Supporting Document(s) Prostate specific Ag [Mass/volume] in Serum or Plasma 0.20 ng/mL [facility] ([facility]) This assay was performed on the [employer] EXL using the B- Galactosidase/CPRG methodology and should not be compared interchangeably with other methods. The PSA should not be used alone as a screening test for the presence or absence of malignant disease. ID Date Data Source [id number] 08/12/2020 11:22:00 AM EDT [facility] ([facility]) Name Value Range Interpretation Code Description Data Shameka rce(s) Supporting Document(s) Thyrotropin [Units/volume] in Serum or Plasma by Detec tion limit <= 0.05 mIU/L 0.61 uIU/mL 0.36-3.74 [facility] ([facility] ) ID Date Data Source [id number] 08/12/2020 11:22:00 AM EDT [facility] ([facility]) Name Value Range Interpretation Code Description Data Shameka rce(s) Supporting Document(s) Microalbumin Urine 2888.3 mg/L 1.3-20.0 [facility] ([facility]) NOTE: DILUTED AND VERIFIED Urine Creatinine 372.9 mg/dL 30.0-125.0 [facility] ([facility]) Microalb/Creat Ratio 774.6 ug/mg 0.0-30.0 [facility] ([facility]) ID Date Data Source [id number] 08/12/2020 11:22:00 AM EDT [facility] ([facility] [facility]) Name Value Range Interpretation Code Description Data Shameka rce(s) Supporting Document(s) Cholesterol [Mass/volume] in Serum or Plasma 165 mg/dL 131-200 [facility] ([facility]) Triglyceride [Mass/volume] in Serum or Plasma 115 mg/dL 30-150 [facility] ([facility]) Cholesterol in HDL [Mass/volume] in Serum or Plasma 52 mg/dL 35-60 [facility] ([facility]) Cholesterol in LDL [Mass/volume] in Serum or Plasma by calcu lation 90 CALC 50-159 [facility] ([facility]) ID Date Data Source [id number] 08/12/2020 11:22:00 AM EDT [facility] ([facility]) Name Value Range Interpretation Code Description Data Shameka rce(s) Supporting Document(s) Glucose [Mass/volume] in Serum or Plasma 125 mg/dL 74-99 [facility] ([facility]) 100-125 mg/dL PRE-DIABETES/FASTING >126 mg/dL DIABETES/FASTING Creatinine 1.6 mg/dL 0.6-1.3 [facility] Urea nitrogen [Mass/volume] in Serum or Plasma 19 mg/dL 7-18 [facility] ([facility]) Potassium [Moles/volume] in Serum or Plasma 4.5 meq/L 3.5-5.1 [facility] ([facility]) Chloride [Moles/volume] in Serum or Plasma 102 meq/L 98-107 [facility] ([facility]) Sodium [Moles/volume] in Serum or Plasma 138 meq/L 136-145 [facility] ([facility]) Total Bilirubin 0.8 mg/dL 0.2-1.0 [facility] ([facility]) Alkaline phosphatase isoenzyme [Units/volume] in Serum or Pl asma 83 mg/dL 46-116 [facility] ([facility]) Calcium [Mass/volume] in Serum or Plasma 9.0 mg/dL 8.5-10.1 [facility] ([facility]) Carbon dioxide, total [Moles/volume] in Serum or Plasma 27 meq/L 21 -32 [facility] ([facility]) Aspartate aminotransferase [Enzymatic activity/volume] in Serum or Plasma 67 U/L 15-37 [facility] ([facility] ) Alanine aminotransferase [Enzymatic activity/volume] in Seru m or Plasma 48 U/L 12-78 [facility] ([facility]) Albumin [Mass/volume] in Serum or Plasma 3.5 g/dL 3.4-5.0 [facility] ([facility]) A/G Ratio 0.81 CALC 1.00-1.90 [facility]) Proteinase 3 Ab [Units/volume] in Serum 7.8 g/dL 6.4-8.2 [facility] Glomerular filtration rate/1.73 sq M pre dicted among non-blacks [Volume Rate/Area] in Serum or Plasma by Creatinine-based formula (MDRD) 42 mL/min [facility] ([facility]) Glomerular filtration rate/1.73 sq M pre dicted among blacks [Volume Rate/Area] in Serum or Plasma by Creatinine-based formula (MDRD) 51 mL/min [facility] ([facility]) <content>CHRONIC KIDNEY DISEASE STAGING PER NKF</content>
<content></content>
<content>STAGE I & II GFR >= 60 NORMAL TO MILDLY DECREASED</content>
<content>STAGE III GFR 30-59 MODERATELY DECREASED</content>
<content>STAGE IV GFR 15-29 SEVERELY DECREASED</content>
<content>STAGE V GFR <15 VERY LITTLE GFR LEFT</content>
<content>ESRD GFR <15 ON STAMPING MACHINE OPERATOR</content>
<content></content> ID Date Data Source [id number] 08/12/2020 11:22:00 AM EDT [facility] Name Value Range Interpretation Code Description Data Shameka rce(s) Supporting Document(s) Hemoglobin A1c/Hemoglobin.total in Blood 6.2 % [facility] Lab Result Notes: Pre-Diabetes 5.7 - 6.4 % Diabetes = or > 6.5% Glucose mean value [Mass/volume] in Blood Estimated fr om glycated hemoglobin 131 mg/dL 60-110 [facility] ID Date Data Source [id number] 08/12/2020 11:22:00 AM EDT [facility] Name Value Range Interpretation Code Description Data Shameka rce(s) Supporting Document(s) Erythrocytes [#/volume] in Blood by Automated count 4.85 x10*6/UL 4.2 0-6.30 [facility] Leukocytes [#/volume] in Blood by Automated count 8.7 x10*3/UL 4.1-10 .9 [facility] MCV 91.7 fL 80.0-97.0 [facility]) MCH 32.2 pg 26.0-32.0 [facility] ([facility]) Hematocrit [Volume Fraction] of Blood by Automated count 44.5 % 3 7.0-51.0 [facility]) Hemoglobin [Mass/volume] in Blood 15.6 g/dL 12.0-18.0 [facility]) MCHC 35.1 g/dL 31.0-38.0 [facility] ([facility]) Platelets [#/volume] in Blood by Automated count 222 x10*3/UL 140-440 [facility] ([facility]) Erythrocyte distribution width [Ratio] by Automated count 13.4 % 11.6-13.7 [facility] ([facility]) MPV 8.2 FL 7.8-11.0 [facility] ([facility]) Mid % 7.4 % 1.7-9.3 [facility] ([facility]) Lymph % 7.5 % 10.0-58.5 [facility] ([facility]) Neut % 85.1 % 37.0-92.0 [facility] ([facility]) Lymph # 0.6 x10*3/UL 0.6-4.1 [facility] ([facility]) Neut # 7.4 x10*3/UL 2.0-7.8 [facility] ([facility]) Mid # 0.7 x10*3/UL 0.1-0.6 [facility] ([facility]) Procedure Social History Code Duration Value Status Description Data Source(s ) Smoking 09/09/2020 12:00:00 AM EDT Patient is a former smoker completed Patient is a former smoker [facility] ([facility]) Vital Signs ID Date Data Source UNK Name Value Range Interpretation Code Description Data Source(s) Systolic blood pressure 110 mm[Hg] 110 mm[Hg] [facility] Diastolic blood pressure 74 mm[Hg] 74 mm[Hg] [facility] ([facility]) Heart rate 56 /min 56 /min [facility] ([facility]) Body height 68 [in_i] 68 [in_i] [facility] ([facility]) 5'8" Body weight 154.00 [lb_av] 154.00 [lb_av] [facility] T ([facility]) Oxygen saturation in Arterial blood by Pulse oximetry 97 % 97 % [facility] ([facility]) RM Air Body mass index (BMI) [Ratio] 23.4 kg/m2 23.4 k g/m2 [facility] ([facility]) Systolic blood pressure 112 mm[Hg] 112 mm[Hg] M [facility] ([facility]) Diastolic blood pressure 76 mm[Hg] 76 mm[Hg] [facility] ([facility]) Heart rate 80 /min 80 /min [facility] ([facility]) Body mass index (BMI) [Ratio] 23.9 kg/m2 23.9 k g/m2 [facility] ([facility]) Body height 68 [in_i] 68 [in_i] [facility] ([facility]) 5'8" Body weight 157.00 [lb_av] 157.00 [lb_av] [facility] T ([facility]) Systolic blood pressure 102 mm[Hg] 102 mm[Hg] M [facility] ([facility]) Diastolic blood pressure 50 mm[Hg] 50 mm[Hg] [facility] ([facility]) Body weight 157.00 [lb_av] 157.00 [lb_av] [facility] T ([facility]) Heart rate 62 /min 62 /min [facility] ([facility]) Body height 68 [in_i] 68 [in_i] [facility] ([facility]) 5'8" Body mass index (BMI) [Ratio] 23.9 kg/m2 23.9 k g/m2 [facility] ([facility]) Systolic blood pressure 128 mm[Hg] 128 mm[Hg] [facility] Body height 68 [in_i] 68 [in_i] [facility] ([facility] 5'8" Body weight 181.00 [lb_av] 181.00 [lb_av] [facility] T ([facility] Diastolic blood pressure 66 mm[Hg] 66 mm[Hg] [facility] ([facility] Heart rate 59 /min 59 /min [facility] ([facility] Body mass index (BMI) [Ratio] 27.5 kg/m2 27.5 k g/m2 [facility] ([facility] Diastolic blood pressure 80 mm[Hg] 80 mm[Hg] [facility] ([facility]) Systolic blood pressure 120 mm[Hg] 120 mm[Hg] M [facility] ([facility]) Diastolic blood pressure 80 mm[Hg] 80 mm[Hg] [facility] ([facility] Heart rate 78 /min 78 /min [facility] Body height 69 [in_i] 69 [in_i] [facility] 5'9" Body weight 180.00 [lb_av] 180.00 [lb_av] [facility] T ([facility] Body weight 81.648 kg 81.648 kg [facility] Body mass index (BMI) [Ratio] 26.6 kg/m2 26.6 k g/m2 [facility] ([facility]) Systolic blood pressure 120 mm[Hg] 120 mm[Hg] M [facility] ([facility]) Systolic blood pressure 118 mm[Hg] 118 mm[Hg] M [facility] ([facility]) Body height 68 [in_i] 68 [in_i] [facility] ([facility]) 5'8" Diastolic blood pressure 72 mm[Hg] 72 mm[Hg] [facility] ([facility]) Heart rate 70 /min 70 /min [facility] ([facility]) Body weight 187.00 [lb_av] 187.00 [lb_av] [facility] T ([facility]) Body mass index (BMI) [Ratio] 28.4 kg/m2 28.4 k g/m2 [facility] ([facility])
[2021-09-03 12:04] LABS: HEMATOCRIT 30.9 % (42.0-52.0); HEMOGLOBIN 10.2 g/dl (13.5-17.5); MEAN CORPUSCULAR HEMOGLOBIN 31.1 pg (27.0-33.0); MEAN CORPUSCULAR VOLUME 94.2 fl (80.0-96.0); PLATELET COUNT, AUTOMATED 240 10^3/uL (150-450); RED BLOOD COUNT 3.28 10^6/uL (4.30-6.10)
[2021-09-03] MEDS ORDERED: NS 1,000 ML IV ONE (12:05)
[2021-09-03] MEDS ORDERED: NS 500 ML IV ONE (12:05)
--- NOTE | 2021-09-03 12:23 | REP ---
INDICATION: dizzy COMPARISON: 05/22/2021 TECHNIQUE: Axial noncontrast images from the skull base to the thoracic inlet with coronal reformations. This CT examination was performed using the following dose reduction techniques: Automated exposure control, adjustment of mA and/or kv according to the patient's size, and use of iterative reconstruction technique. FINDINGS: Atrophy with periventricular leukomalacia and microvascular ischemic changes are appreciated. The ventricles and sulci are symmetric. Whittington-white differentiation is maintained. There is no evidence for acute intracranial hemorrhage, mass/mass effect, pathology or infarction. No extra-axial fluid collection. Calvarium is intact. Paranasal sinuses and mastoid air cells are clear. IMPRESSION: Atrophy and microvascular ischemic changes. No acute intracranial hemorrhage, infarction, or mass/mass effect. <Electronically signed by Kayden Campos > 09/03/21 [id number]
[2021-09-03 12:50] LABS: ALBUMIN 2.5 GM/DL (3.2-5.2); CALCIUM LEVEL 8.4 MG/DL (8.8-10.2); CK-MB VALUE MASS 1.3 NG/ML (<3.6); CREATININE FOR GFR 3.93 MG/DL (0.70-1.30); GLOMERULAR FILTRATION RATE 15.9 (>42); MB/CK RELATIVE INDEX 3.25 (< OR =4); THYROID STIMULATING HORMONE 0.24 uIU/ML (0.358-3.740); TOTAL PROTEIN 6.5 GM/DL (6.4-8.2); TROPONIN I 0.03 NG/ML (< 0.10)
[2021-09-03] MEDS ORDERED: POTASSIUM CHLORIDE 10MEQ SR TABLET PO ONE (14:00)
[2021-09-03] MEDS ORDERED: DOXY-350 PO (14:10)
[2021-09-03 15:00] LABS: RSV AMPLIFICATION NEGATIVE (NEGATIVE)
--- OUTSIDE RECORDS SUMMARY | 2021-09-03 15:32 | CCD ---
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 If you continue you may have access to information: Regarding HIV / AIDS; Provided by facilities licensed or operated by the [facility] Office of Mental Health; or Provided by the [facility] Office for People With Developmental Disabilities. If such information is present, then the following [facility] mandated warning applies: This information has [...] law may result in a fine or nursing home sentence or both. A general authorization for the release of medical or other information is NOT sufficient authorization for further disc losure. Family History Family Member Name Family Member Gender Family Member Status Date o f Status Description Data Source(s) Unknown Unknown Problem [facility] Unknown Unknown Problem [facility] ([facility] Unknown Male Problem [facility] ([facility]) Unknown Male Problem [facility] ([facility] () Encounters Encounter Providers Location Date Indications Data Source(s ) Outpatient Attender: KIA DUENAS MD [email or web address] 12:00:00 AM EDT - 08/28/2021 02:45:09 PM EDT [facility] Outpatient Attender: IVAN Souza 0 08/03/2021 02:40:00 PM EDT [facility] ([facility] ) Outpatient Attender: Eduardo Souza 07/03 02:00:00 PM EDT [facility] ([facility] ) Outpatient Attender: IVAN Souza 0 06/17/2021 10:20:00 AM EDT [facility] ([facility] ) Outpatient Attender: TERI FERRIS [facility] Office 12/22 01:45:00 PM EST [facility] ([facility] Outpatient Attender: LEATHA AN MD Main Office 09/09/2020 01:00:0 0 PM EDT [facility] ([facility] U[facility] Center [address] [place] [phone] 08/15/2020 12:00:00 AM EDT eCW1 ([facility]) Outpatient Attender: Eduardo Souza 08/13 10:30:00 AM EDT MED[facility] ([facility] ) Immunizations Vaccine Date Status Description Data Source(s) COVID-19 VACCINE Moderna 02/17/2021 12:00:00 AM EDT completed [facility] Vaccine Series Complete: YESThis Data wa s Submitted to [facility] Via [employer]. COVID-19 VACCINE Moderna 01/20/2021 12:00:00 AM EST completed [facility] Vaccine Series Complete: NOThis Data was Submitted to [facility] Via [employer]. Influenza, injectable, MDCK, preservative free, gage valent 08/13/2020 10:49:00 AM EDT completed [facility] ([facility]) Medications Medication Brand Name Start [...] 06/17/2021 12:00:00 AM EDT ORAL active MED[facility] ([facility]) atorvastatin 20 MG Oral Tablet Atorvastatin Calcium 06/17/2021 1 2:00:00 AM EDT ORAL active MED[facility] ( [facility]) Prednisone 10 MG Oral Tablet Prednisone 06/17/2021 12:00:00 AM EDT ORAL completed MED[facility] ([facility]) Metoprolol Tartrate 25 MG Oral Tablet Metoprolol Tartrate 12:00:00 AM EDT ORAL active MED[facility] ([facility]) ramelteon 8 MG Oral Tablet Ramelteon 06/17/2021 12:00:00 AM EDT active MED[facility] ([facility]) Thiamine 100 MG Oral Tablet Vitamin B-1 06/17/2021 12:00:00 AM EDT ORAL active [facility] ([facility]) Vitamin B 12 1 MG Oral Tablet Vitamin B-12 06/17/2021 12:00:00 AM EDT ORAL active MEDENT ([facility]) gabapentin 100 MG Oral Capsule Gabapentin 06/17/2021 12:00:00 AM EDT ORAL active MED[facility] ([facility]) Folic Acid 1 MG Oral Tablet Folic Acid 06/17/2021 12:00:00 AM EDT ORAL active MED[facility] ([facility]) 25 mg 06/12/2021 12:00:00 AM EDT [...] [100MG] BY MOUTH DAILY SOLD: 06/17/2021 [facility] [employer] Finasteride 5 MG Oral Tablet FINASTERIDE 06/12/2021 [...] WEEK (TUESDAY/ TUESDAY/ TUESDAY) SOLD: 04/24/2021 [facility] [employer] Sodium polystyrene sulfonate 250 MG/ML Oral Suspension [SPS] 15-20 gram/60 mL SODIUM POLYSTYRENE SULFON/SORB 04/22/2021 12:00:00 AM EDT suspension 120 TAKE 60ML BY MOUTH ONCE DAILY FOR 2 DAYS TAKE 60ML BY MOUTH ONCE DAILY FOR 2 DAYS SOLD: 04/22/2021 [employer] pantoprazole 40 MG Delayed Release Oral Tablet [...] type / Coverage type Policy ID Covered green party ID Covered green party's relationship to delcid Policy Delcid Plan Information MEDICARE [id number] SP [id number] A [employer] [id number] WI2 [id number] P[employer] [id number] WI2 [id number] MEDICARE [id number] SP [id number] A MEDICARE [id number] [facility] [id number] UMR [id number] [facility] [id number] Umr (New [employer]) Commercial [id number] Family Dependent [id number] [facility] Part B [id number] Self [id number] [employer]/Umr (Old) [facility] Part B [id number] Family Dependent [id number] Umr/Uhc/[employer] Health Maintenance Organization (HMO) [id number] Family Dependent [id number] Umr Commercial [id number] [facility] Part B [id number] Self [id number] ANSI-Commercial [id number] MEDICARE [id number] A [facility] Part B [id number] Self [id number] ANSI-Commercial [id number] [facility] Part B [id number] Self [id number] [employer]/Umr (Old) Commercial [id number] Family Dependent [id number] [employer] Commercial [id number] Family Dependent [id number] [facility] Part B [id number] Self [id number] r [employer] Ppo Commercial [id number] Family Dependent [id number] [facility] Part B [id number] Self [id number] [employer] Commercial [id number] Family Dependent [id number] [employer] Commercial [id number] Family Dependent 91 0 MEDICARE [id number] SP [id number] [facility] [id number] WI2 [id number] MEDICARE [id number] SP [id number] [facility] [id number] WI2 [id number] [facility] Benefit XtremIO [facility] Part B [id number] Self [id number] [facility] Commercial [id number] Family Dependent [id number] [facility] Benefit XtremIO [facility] Part B [id number] Self [id number] Problems, Conditions, and Diagnoses Code Display Name Description Problem Type Effective Dates Data Source(s) E11.42 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 etes mellitus 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etes mellitus Problem 01/05/2021 12:00: 00 AM TARUN [facility]L ([facility] M79.671 Pain in limb Pain in limb Problem 01/05/2021 12:00:00 A M EST MEDSHERYL ([facility] [id number] Pressure ulcer of right foot stage 1 Pre ssure ulcer of right foot stage 1 Problem 01/05/2021 12:00:00 AM EST MEDENT ([facility] [id number] Type 2 diabetes mellitus with ulcer Type [...] 15 MINUTES 08/03/2021 12:00:00 AM EDT MED[facility] ([facility]) OFFICE OUTPATIENT VISIT 25 MINUTES 07/03/2021 12:00:00 AM EDT [facility] ([facility]) OFFICE OUTPATIENT VISIT 25 MINUTES 06/17/2021 12:00:00 AM EDT MED[facility] ([facility]) DEBRIDEMENT NAIL ANY METHOD 01/02/2021 12:00:00 AM EST [facility] ([facility] DEBRIDEMENT OPEN WOUND 20 SQ CM/< 01/02/2021 12:00:00 AM EST [facility] ([facility] Results ID Date Data Source [id number] 08/12/2021 03:35:00 PM EDT [facility] Name Value Range Interpretation Code Description Data Shameka rce(s) Supporting Document(s) Respiratory pathogens identified [Type] in Nasopharynx by Probe and target amplification method SARS-CoV-2 (COVID 19) [facility] This lab was ordered by [facility] a nd reported by [facility]. ID Date Data Source [id number] 07/01/2021 11:21:00 AM EDT MED[facility] ([facility]) Name Value Range Interpretation Code Description Data Shameka rce(s) Supporting Document(s) Leukocytes [#/volume] in Blood by Automated count 13.6 x10*3/UL 4.1-1 0.9 [facility] ([facility]) NOTE: CBC VERIFIED Erythrocytes [#/volume] in Blood by Automated count 4.09 x10*6/UL 4.2 0-6.30 [facility] Hematocrit [Volume Fraction] of Blood by Automated count 38.1 % 3 7.0-51.0 [facility] Hemoglobin [Mass/volume] in Blood 12.9 g/dL 12.0-18.0 [facility] ([facility]) MCV 93.2 fL 80.0-97.0 MED[facility] ([facility]) MCHC 33.8 g/dL 31.0-38.0 [facility] ([facility]) MCH 31.5 pg 26.0-32.0 [facility] ([facility]) Erythrocyte distribution width [Ratio] by Automated count 14.6 % 11.6-13.7 [facility] ([facility]) MPV 8.0 FL 7.8-11.0 [facility] ([facility]) Platelets [#/volume] in Blood by Automated count 282 x10*3/UL 140-440 [facility] ([facility]) Mid % 2.3 % 1.7-9.3 [facility] ([facility]) Lymph % 8.3 % 10.0-58.5 [facility] ([facility]) Neut % 89.4 % 37.0-92.0 [facility] ([facility]) Lymph # 1.1 x10*3/UL 0.6-4.1 [facility] ([facility]) Mid # 0.3 x10*3/UL 0.1-0.6 [facility] ([facility]) Neut # 12.2 x10*3/UL 2.0-7.8 [facility] ([facility]) ID Date Data Source [id number] 07/01/2021 11:21:00 AM EDT MED[facility] ([facility]) Name Value Range Interpretation Code Description Data Shameka rce(s) Supporting Document(s) Thyrotropin [Units/volume] in Serum or Plasma by Detec tion limit <= 0.05 mIU/L 0.88 uIU/mL 0.36-3.74 [facility] ([facility] ) ID Date Data Source [id number] 07/01/2021 11:21:[facility] Name Value Range Interpretation Code Description Data Shameka rce(s) Supporting Document(s) Cholesterol [Mass/volume] in Serum or Plasma 184 mg/dL 131-200 [facility] ([facility]) Triglyceride [Mass/volume] in Serum or Plasma 146 mg/dL 30-150 [facility] ([facility]) Cholesterol in HDL [Mass/volume] in Serum or Plasma 80 mg/dL 35-60 [facility] ([facility]) Cholesterol in LDL [Mass/volume] in Serum or Plasma by calcu lation 75 CALC 50-159 [facility] ID Date Data Source [id number] 07/01/2021 11:21:00 AM [facility] Name Value Range Interpretation Code Description Data Shameka rce(s) Supporting Document(s) Glucose [Mass/volume] in Serum or Plasma 104 mg/dL 74-99 [facility] ([facility]) 100-125 mg/dL PRE-DIABETES/FASTING >126 mg/dL DIABETES/FASTING Creatinine 2.8 mg/dL 0.6-1.3 [facility] Urea nitrogen [Mass/volume] in Serum or Plasma 22 mg/dL 7-18 [facility] ([facility]) NOTE: BUN,CREAT VERIFIED Potassium [Moles/volume] in Serum or Plasma 3.6 meq/L 3.5-5.1 [facility] ([facility]) Sodium [Moles/volume] in Serum or Plasma 136 meq/L 136-145 [facility] ([facility]) Chloride [Moles/volume] in Serum or Plasma 96 meq/L 98-107 [facility] ([facility]) Carbon dioxide, total [Moles/volume] in Serum or Plasma 34 meq/L 21 -32 [facility] ([facility]) Calcium [Mass/volume] in Serum or Plasma 9.1 mg/dL 8.5-10.1 [facility] ([facility]) Alkaline phosphatase isoenzyme [Units/volume] in Serum or Pl asma 98 mg/dL 46-116 [facility] ([facility]) Total Bilirubin 0.5 mg/dL 0.2-1.0 [facility] ([facility]) Aspartate aminotransferase [Enzymatic activity/volume] in Serum or Plasma 28 U/L 15-37 [facility] ([facility] ) Alanine aminotransferase [Enzymatic activity/volume] in Seru m or Plasma 25 U/L 12-78 [facility] ([facility]) Albumin [Mass/volume] in Serum or Plasma 3.1 g/dL 3.4-5.0 [facility] ([facility]) Proteinase 3 Ab [Units/volume] in Serum 7.0 g/dL 6.4-8.2 [facility] ([facility]) A/G Ratio 0.79 CALC 1.00-1.90 [facility]) Glomerular filtration rate/1.73 sq M pre dicted among non-blacks [Volume Rate/Area] in Serum or Plasma by Creatinine-based formula (MDRD) 22 mL/min [facility] ([facility]) Glomerular filtration rate/1.73 sq M pre dicted among blacks [Volume Rate/Area] in Serum or Plasma by Creatinine-based formula (MDRD) 27 mL/min [facility] <content>CHRONIC KIDNEY DISEASE STAGING PER NKF</content>
<content></content>
<content>STAGE I & II GFR >= 60 NORMAL TO MILDLY DECREASED</content>
<content>STAGE III GFR 30-59 MODERATELY DECREASED</content>
<content>STAGE IV GFR 15-29 SEVERELY DECREASED</content>
<content>STAGE V GFR <15 VERY LITTLE GFR LEFT</content>
<content>ESRD GFR <15 ON CREDIT COLLECTIONS MANAGER</content>
<content></content> ID Date Data Source [id number] 07/01/2021 11:21:00 AM ED[facility] Name Value Range Interpretation Code Description Data Shameka rce(s) Supporting Document(s) Hemoglobin A1c/Hemoglobin.total in Blood 5.5 % [facility] Lab Result Notes: Pre-Diabetes 5.7 - 6.4 % Diabetes = or > 6.5% Glucose mean value [Mass/volume] in Blood Estimated fr om glycated hemoglobin 111 mg/dL 60-110 [facility] ([facility] ) ID Date Data Source [id number] 07/01/2021 11:21:00 AM EDT [facility] ([facility]) Name Value Range Interpretation Code Description Data Shameka rce(s) Supporting Document(s) Hemoglobin A1c/Hemoglobin.total in Blood Laboratory test result [facility] ID Date Data Source [id number] 06/17/2021 11:03:00 AM EDT [facility] ([facility]) Name Value Range Interpretation Code Description Data Shameka rce(s) Supporting Document(s) Thyrotropin [Units/volume] in Serum or Plasma by Detec tion limit <= 0.05 mIU/L 2.97 uIU/mL 0.36-3.74 [facility] ([facility] ) ID Date Data Source [id number] 06/17/2021 11:03:00 AM EDT [facility] ([facility]) Name Value Range Interpretation Code Description Data Shameka rce(s) Supporting Document(s) Glucose [Mass/volume] in Serum or Plasma 149 mg/dL 74-99 [facility] 100-125 mg/dL PRE-DIABETES/FASTING >126 mg/dL DIABETES/FASTING Urea nitrogen [Mass/volume] in Serum or Plasma 27 mg/dL 7-[facility] NOTE: BUN,CREAT VERIFIED Creatinine 3.1 mg/dL 0.6-1.3 [facility] Chloride [Moles/volume] in Serum or Plasma 102 meq/L 98-107 [facility] Potassium [Moles/volume] in Serum or Plasma 3.8 meq/L 3.5-5.1 [facility] Sodium [Moles/volume] in Serum or Plasma 140 meq/L 136-145 [facility] Carbon dioxide, total [Moles/volume] in Serum or Plasma 33 meq/L 21 -32 [facility] Calcium [Mass/volume] in Serum or Plasma 9.1 mg/dL 8.5-10.1 [facility] Glomerular filtration rate/1.73 sq M pre dicted among non-blacks [Volume Rate/Area] in Serum or Plasma by Creatinine-based formula (MDRD) 20 mL/min [facility] Glomerular filtration rate/1.73 sq M pre dicted among blacks [Volume Rate/Area] in Serum or Plasma by Creatinine-based formula (MDRD) 24 mL/min [facility] ([facility]) <content>CHRONIC KIDNEY DISEASE STAGING PER NKF</content>
<content></content>
<content>STAGE I & II GFR >= 60 NORMAL TO MILDLY DECREASED</content>
<content>STAGE III GFR 30-59 MODERATELY DECREASED</content>
<content>STAGE IV GFR 15-29 SEVERELY DECREASED</content>
<content>STAGE V GFR <15 VERY LITTLE GFR LEFT</content>
<content>ESRD GFR <15 ON CREDIT COLLECTIONS MANAGER</content>
<content></content> ID Date Data Source [id number] 06/17/2021 11:03:00 AM [facility] Name Value Range Interpretation Code Description Data Shameka rce(s) Supporting Document(s) Leukocytes [#/volume] in Blood by Automated count 11.2 x10*3/UL 4.1-1 0.9 [facility] CRITICAL: CBC VERIFIED Erythrocytes [#/volume] in Blood by Automated count 4.02 x10*6/UL 4.2 0-6.30 [facility] Hematocrit [Volume Fraction] of Blood by Automated count 38.2 % 3 7.0-51.0 [facility] MCV 95.0 fL 80.0-97.0 [facility] ([facility]) Hemoglobin [Mass/volume] in Blood 12.6 g/dL 12.0-18.0 [facility] ([facility]) MCH 31.5 pg 26.0-32.0 [facility] MCHC 33.1 g/dL 31.0-38.0 [facility] ([facility]) Platelets [#/volume] in Blood by Automated count 183 x10*3/UL 140-440 [facility] Erythrocyte distribution width [Ratio] by Automated count 16.3 % 11.6-13.7 [facility] ([facility]) MPV 8.1 FL 7.8-11.0 [facility] Lymph % 7.0 % 10.0-58.5 [facility] ([facility]) Neut % 90.3 % 37.0-92.0 [facility] ([facility]) Mid % 2.7 % 1.7-9.3 [facility] ([facility]) Lymph # 0.7 x10*3/UL 0.6-4.1 [facility] ([facility]) Mid # 0.4 x10*3/UL 0.1-0.6 [facility] ([facility]) Neut # 10.1 x10*3/UL 2.0-7.8 [facility] ([facility]) ID Date Data Source [id number] 05/22/2021 10:08:00 PM EDT [facility] ([facility]) Name Value Range Interpretation Code Description Data Shameka rce(s) Supporting Document(s) CPK Creatine Phosphokinase 55 U/L 39-308 [facility] ([facility]) CK-MB Value Mass 3.2 ng/mL [facility] ([facility]) MB/CK Relative Index 5.82 [facility] ([facility]) <content>DIAGNOSIS CRITERIA</content>
<content>MMB ng/ml Relative Index (RI)</content>
<content>NON-AMI < or = 5 N/A</content>
<content>[place] ZONE > 5 < or = 4</content>
<content>AMI > 5 > 4</content>
<content></content> Troponin I 0.13 ng/mL [facility] <content>Troponin I Reference Interval f or Siemens [place] LOCI:</content>
<content></content>
<content>99th Percentile= 0.00-0.045 ng/ml</content>
<content></content>
<content>Risk Stratification:</content>
<content><= 0.10 ng/ml Decreased Risk for Adverse Clinical</content>
<content>Events.</content>
<content>0.10-1.50 ng/ml Increased Risk for Adverse Clinical</content>
<content>Events. Evaluation of additional</content>
<content>criterion and/or repeat testing in 2-6</content>
<content>hours is suggested to rule out myocardial</content>
<content>damage.</content>
<content>>= 1.50 ng/ml Indicative of Myocardial Injury.</content>
<content></content> ID Date Data Source [id number] 05/22/2021 10:08:00 PM [facility] Name Value Range Interpretation Code Description Data Shameka rce(s) Supporting Document(s) C reactive protein [Mass/volume] in Serum or Plasma by High sensitivity method 10.10 mg/dL 0.00-0.30 [facility] ([facility] ) ID Date Data Source [id number] 05/22/2021 08:23:00 PM EDT [facility] ([facility]) Name Value Range Interpretation Code Description Data Shameka rce(s) Supporting Document(s) Influenza A Amplification [facility] Negative results do not preclude influen za or RSV virus infection and should not be used as the sole basis for treatment or other patient management decisions. Influenza B Amplification Laboratory test result [facility] ([facility]) Negative results do not preclude influen za or RSV virus infection and should not be used as the sole basis for treatment or other patient management decisions. RSV Amplification Laboratory test result [facility] ([facility]) Negative results do not preclude influen za or RSV virus infection and should not be used as the sole basis for treatment or other patient management decisions. Laboratory test finding (navigational concept) Laboratory test result [facility] ([facility]) A false negative result may occur [...] pathogens. DISCLAIMER: Testing was performed using the [employer] SARS-CoV-2 test. This test was developed and its performance characteristics determined by [employer]. This test has not been FDA cleared [...] or revoked sooner. ID Date Data Source [id number] 05/22/2021 08:23:00 PM EDT [facility] Name Value Range Interpretation Code Description Data Shameka rce(s) Supporting Document(s) SARS coronavirus 2 RNA [Presence] in Res piratory specimen by CHRISTOPHER with probe detection NEGATIVE [facility] This lab was ordered by [facility] a nd reported by [facility]. ID Date Data Source [id number] 05/22/2021 07:08:00 PM ED[facility] Name Value Range Interpretation Code Description Data Shameka rce(s) Supporting Document(s) CK-MB Value Mass 3.1 ng/mL [facility] ([facility]) CPK Creatine Phosphokinase 58 U/L 39-308 [facility] ([facility]) MB/CK Relative Index 5.34 [facility] ([facility]) <content>DIAGNOSIS CRITERIA</content>
<content>MMB ng/ml Relative Index (RI)</content>
<content>NON-AMI < or = 5 N/A</content>
<content>[place] ZONE > 5 < or = 4</content>
<content>AMI > 5 > 4</content>
<content></content> Troponin I 0.14 ng/mL [facility] ([facility]) <content>Troponin I Reference Interval f or Siemens [place] LOCI:</content>
<content></content>
<content>99th Percentile= 0.00-0.045 ng/ml</content>
<content></content>
<content>Risk Stratification:</content>
<content><= 0.10 ng/ml Decreased Risk for Adverse Clinical</content>
<content>Events.</content>
<content>0.10-1.50 ng/ml Increased Risk for Adverse Clinical</content>
<content>Events. Evaluation of additional</content>
<content>criterion and/or repeat testing in 2-6</content>
<content>hours is suggested to rule out myocardial</content>
<content>damage.</content>
<content>>= 1.50 ng/ml Indicative of Myocardial Injury.</content>
<content></content> ID Date Data Source [id number] 05/22/2021 07:08:00 PM EDT [facility] ([facility]) Name Value Range Interpretation Code Description Data Shameka rce(s) Supporting Document(s) Alt/SGPT 53 U/L 12-78 [facility] ([facility] [facility]) Ast/Sgot 29 U/L 7-37 [facility] ([facility] [facility]) Alkaline Phosphatase 131 U/L 45-117 [facility] ([facility]) Bilirubin,Total 0.4 mg/dL 0.2-1.0 [facility] ([facility]) Bilirubin,Direct 0.2 mg/dL 0.0-0.2 [facility] ([facility]) Total Protein 5.8 GM/DL 6.4-8.2 [facility] ([facility]) Albumin/Globulin Ratio 0.8 [facility] ([facility]) Albumin 2.6 GM/DL 3.2-5.2 [facility] ([place] [facility]) ID Date Data Source [id number] 05/22/2021 07:08:00 PM EDT [facility] ([facility]) Name Value Range Interpretation Code Description Data Shameka rce(s) Supporting Document(s) Blood Urea Nitrogen 28 mg/dL 7-18 [facility] ([facility]) Glucose, Fasting 94 mg/dL 70-100 [facility] ([facility]) Creatinine For GFR 4.03 mg/dL 0.70-1.30 [facility] ([facility]) Glomerular Filtration Rate 15.4 [facility] ([facility]) <content>Units are mL/min/1.73 m2</content>
<content></content>
<content>Chronic Kidney Disease Staging per NKF:</content>
<content></content>
<content>Stage I & II GFR >=60 Normal to Mildly Decreased</content>
<content>Stage III GFR 30- 59 Moderately Decreased</content>
<content>Stage IV GFR 15-29 Severely Decreased</content>
<content>Stage V GFR <15 Very Little GFR Left</content>
<content>ESRD GFR <15 on CREDIT COLLECTIONS MANAGER</content>
<content></content> Sodium Level 141 meq/L 136-145 [facility] ([facility]) Potassium Serum 3.8 meq/L 3.5-5.1 [facility] ([facility]) Chloride Level 102 meq/L 98-107 [facility] ([facility]) Carbon Dioxide Level 29 meq/L 21-32 [facility] ([facility]) Anion Gap 10 meq/L 8-16 [facility] ([place] [facility]) Calcium Level 7.9 mg/dL 8.8-10.2 [facility] ([facility]) ID Date Data Source [id number] 05/22/2021 07:08:00 PM EDT [facility] ([facility]) Name Value Range Interpretation Code Description Data Shameka rce(s) Supporting Document(s) Red Blood Count 3.35 10 4.30-6.10 [facility] ([facility]) White Blood Count 8.4 10 4.0-10.0 [facility] ([facility]) Hematocrit 33.7 % 42.0-52.0 [facility] Hemoglobin 10.8 g/dL 13.5-17.5 [facility] ([facility]) Mean Corpuscular Hemoglobin 32.2 pg 27.0-33.0 DC D[facility] ([facility]) Mean Corpuscular Volume 100.6 fl 80.0-96.0 [facility] ([facility]) Red Cell Distribution Width 15.8 % 11.5-14.5 ME [facility] ([facility]) Mean Corpuscular HGB Conc 32.0 g/dL 32.0-36.5 MEDE NT ([facility]) Nucleated Red Blood Cell % 0.2 % 0-0 [facility] ([facility]) Platelet Count, Automated 127 10 150-450 [facility] NT ([facility]) ID Date Data Source [id number] 05/22/2021 07:08:00 PM EDT [facility] ([facility]) Name Value Range Interpretation Code Description Data Shameka rce(s) Supporting Document(s) Neutrophils 64 % 28-66 [facility] ([facility]) Bands 12 % [facility] ([place] [facility]) Lymphocytes 11 % 16-44 [facility] ([facility]) Basophils 1 % 0-1 [facility] [facility]) Monocytes 9 % 0-5 [facility] [facility] Metamyelocytes 1 % 0-0 [facility] ([facility]) Myelocytes 2 % 0-0 [facility] [facility]) ID Date Data Source [id number] 05/22/2021 07:08:[facility] Name Value Range Interpretation Code Description Data Shameka rce(s) Supporting Document(s) Platelets [#/volume] in Blood by Estimate [facility] [facility] ID Date Data Source [id number] 05/22/2021 07:08:00 PM EDT [facility] Name Value Range Interpretation Code Description Data Shameka rce(s) Supporting Document(s) Thyrotropin [Units/volume] in Serum or Plasma by Detec tion limit <= 0.05 mIU/L 1.940 uIU/ML 0.358-3.740 [facility] [facility] Thyroxine (T4) free [Mass/volume] in Serum or Plasma 0.90 ng/dL 0.76- 1.46 [facility] [facility] ID Date Data Source [id number] 05/18/2021 01:03:00 PM EDT [facility] Name Value Range Interpretation Code Description Data Shameka rce(s) Supporting Document(s) SARS coronavirus 2 RNA [Presence] in Res piratory specimen by CHRISTOPHER with probe detection NEGATIVE [facility] This lab was ordered by [facility] a nd reported by [facility]. ID Date Data Source [id number] 05/07/2021 04:05:00 PM EDT [facility] Name Value Range Interpretation Code Description Data Shameka rce(s) Supporting Document(s) Laboratory test finding (navigational concept) 0.10 ng/mL 0.00-0.08 [facility]) ID Date Data Source [id number] 05/07/2021 03:51:00 PM EDT [facility] ([facility]) Name Value Range Interpretation Code Description Data Shameka rce(s) Supporting Document(s) Laboratory test finding (navigational concept) 33.0 % 38.0-51.0 [facility] ([facility]) Laboratory test finding (navigational concept) 89 mg/dL 70-105 [facility] ([facility]) Laboratory test finding (navigational concept) 140 meq/L 136-145 [facility] ([facility]) Laboratory test finding (navigational concept) 3.9 meq/L 3.5-5.1 [facility] ([place] [facility] Laboratory test finding (navigational concept) 4.2 mg/dL 4.5-5.3 [facility] ([place] [facility] Laboratory test finding (navigational concept) 100 meq/L 98-109 [facility] ([place] [facility] Laboratory test finding (navigational concept) 24.0 MM/L 23.0-27.0 [facility] ([place] [facility] Laboratory test finding (navigational concept) 41 mg/dL 8-26 [facility] ([place] [facility] Laboratory test finding (navigational concept) 4.4 mg/dL 0.6-1.3 [facility] ([place] [facility] ID Date Data Source [id number] 05/07/2021 03:22:00 PM EDT [facility] Name Value Range Interpretation Code Description Data Shameka rce(s) Supporting Document(s) Thyrotropin [Units/volume] in Serum or Plasma by Detec tion limit <= 0.05 mIU/L 0.505 uIU/ML 0.358-3.740 [facility] [facility] ID Date Data Source [id number] 05/07/2021 03:22:00 PM ED[facility] Name Value Range Interpretation Code Description Data Shameka rce(s) Supporting Document(s) Blood Urea Nitrogen 41 mg/dL 7-18 [facility] ([facility] Glucose, Fasting 90 mg/dL 70-100 [facility] ([facility] Creatinine For GFR 4.06 mg/dL 0.70-1.30 [facility] Glomerular Filtration Rate 15.3 [facility] ([place] [facility] <content>Units are mL/min/1.73 m2</content>
<content></content>
<content>Chronic Kidney Disease Staging per NKF:</content>
<content></content>
<content>Stage I & II GFR >=60 Normal to Mildly Decreased</content>
<content>Stage III GFR 30- 59 Moderately Decreased</content>
<content>Stage IV GFR 15-29 Severely Decreased</content>
<content>Stage V GFR <15 Very Little GFR Left</content>
<content>ESRD GFR <15 on CREDIT COLLECTIONS MANAGER</content>
<content></content> Sodium Level 140 meq/L 136-145 [facility] ([facility]) Potassium Serum 3.9 meq/L 3.5-5.1 [facility] ([facility]) Carbon Dioxide Level 27 meq/L 21-32 [facility] ([facility]) Chloride Level 106 meq/L 98-107 [facility] ([facility]) Anion Gap 7 meq/L 8-16 [facility] ([place] [facility]) Calcium Level 7.4 mg/dL 8.8-10.2 [facility] ([facility]) ID Date Data Source [id number] 05/07/2021 03:22:00 PM EDT [facility] ([facility]) Name Value Range Interpretation Code Description Data Shameka rce(s) Supporting Document(s) Ast/Sgot 70 U/L 7-37 [facility] ([place] [facility]) Alt/SGPT 69 U/L 12-78 [facility] ([facility]) Alkaline Phosphatase 84 U/L 45-117 [facility] ([facility]) Bilirubin,Direct 0.2 mg/dL 0.0-0.2 [facility] ([facility]) Bilirubin,Total 0.5 mg/dL 0.2-1.0 [facility] ([facility]) Total Protein 5.3 GM/DL 6.4-8.2 [facility] ([facility]) Albumin/Globulin Ratio 0.8 [facility] ([facility]) Albumin 2.4 GM/DL 3.2-5.2 [facility] ([place] [facility]) ID Date Data Source [id number] 05/07/2021 03:22:00 PM EDT [facility] ([facility]) Name Value Range Interpretation Code Description Data Shameka rce(s) Supporting Document(s) Ammonia [Mass/volume] in Blood Laboratory test result [facility] ([facility] [facility]) ID Date Data Source [id number] 05/07/2021 03:22:00 PM EDT [facility] ([facility]) Name Value Range Interpretation Code Description Data Shameka rce(s) Supporting Document(s) White Blood Count 6.9 10 4.0-10.0 [facility] ([facility]) Hemoglobin 11.0 g/dL 13.5-17.5 [facility] ([facility]) Red Blood Count 3.49 10 4.30-6.10 [facility] ([facility]) Hematocrit 34.2 % 42.0-52.0 [facility] ([facility]) Mean Corpuscular Volume 98.0 fl 80.0-96.0 [facility] ([facility]) Mean Corpuscular Hemoglobin 31.5 pg 27.0-33.0 [facility] ([facility]) Red Cell Distribution Width 13.3 % 11.5-14.5 [facility] ([facility]) Mean Corpuscular HGB Conc 32.2 g/dL 32.0-36.5 [facility] ([facility] [facility]) Neutrophils % 82.7 % 36.0-66.0 [facility] ([facility]) Platelet Count, Automated 108 10 150-450 [facility] ([facility] [facility]) [place]ven % 5.1 % 2.0-8.0 [facility] [facility] Lymph % 5.7 % 24.0-44.0 [facility] [facility] Baso % 0.3 % 0.0-1.0 [facility] [facility] Eos % 3.6 % 0.0-3.0 [facility] [facility] Immature Granulocyte % 2.6 % 0-3.0 [facility] ([facility]) Nucleated Red Blood Cell % 0.0 % 0-0 [facility] ([facility] [facility]) Lymph # 0.4 10 1.5-5.0 [facility] [facility]) Neutrophils # 5.7 10 1.5-8.5 [facility] ([facility]) Eos # 0.3 10 0.0-0.5 [facility] [facility]) Craven # 0.4 10 0.0-0.8 [facility] [facility]) Baso # 0.0 10 0.0-0.2 [facility] [facility]) ID Date Data Source [id number] 05/07/2021 01:54:00 PM EDT [facility] ([facility]) Name Value Range Interpretation Code Description Data Shameka rce(s) Supporting Document(s) Influenza A Amplification Laboratory test result [facility] ([facility]) Negative results do not preclude influen za or RSV virus infection and should not be used as the sole basis for treatment or other patient management decisions. Influenza B Amplification Laboratory test result [facility] ([facility]) Negative results do not preclude influen za or RSV virus infection and should not be used as the sole basis for treatment or other patient management decisions. RSV Amplification Laboratory test result [facility] ([facility] [facility]) Negative results do not preclude influen za or RSV virus infection and should not be used as the sole basis for treatment or other patient management decisions. Laboratory test finding (navigational concept) Laboratory test result [facility] ([facility] [facility]) A false negative result may occur [...] pathogens. DISCLAIMER: Testing was performed using the [employer] SARS-CoV-2 test. This test was developed and its performance characteristics determined by [employer]. This test has not been FDA cleared [...] or revoked sooner. ID Date Data Source [id number] 05/07/2021 01:54:00 PM EDT [facility] Name Value Range Interpretation Code Description Data Shameka e(s) Supporting Document(s) SARS coronavirus 2 RNA [Presence] in Res piratory specimen by CHRISTOPHER with probe detection NEGATIVE [facility] This lab was ordered by [facility] a nd reported by [facility]. ID Date Data Source [id number] 04/27/2021 08:48:00 PM EDT [facility] ([facility]) Name Value Range Interpretation Code Description Data Shameka rce(s) Supporting Document(s) CK-MB Value Mass 7.7 ng/[facility] CPK Creatine Phosphokinase 850 U/L 39-308 [facility] ([facility]) Troponin I 1.15 ng/mL [facility] [facility]) <content>Troponin I Reference Interval f or Siemens [place] LOCI:</content>
<content></content>
<content>99th Percentile= 0.00-0.045 ng/ml</content>
<content></content>
<content>Risk Stratification:</content>
<content><= 0.10 ng/ml Decreased Risk for Adverse Clinical</content>
<content>Events.</content>
<content>0.10-1.50 ng/ml Increased Risk for Adverse Clinical</content>
<content>Events. Evaluation of additional</content>
<content>criterion and/or repeat testing in 2-6</content>
<content>hours is suggested to rule out myocardial</content>
<content>damage.</content>
<content>>= 1.50 ng/ml Indicative of Myocardial Injury.</content>
<content></content> MB/CK Relative Index 0.91 [facility] ([facility]) <content>DIAGNOSIS CRITERIA</content>
<content>MMB ng/ml Relative Index (RI)</content>
<content>NON-AMI < or = 5 N/A</content>
<content>[place] ZONE > 5 < or = 4</content>
<content>AMI > 5 > 4</content>
<content></content> ID Date Data Source [id number] 04/27/2021 05:48:00 PM EDT [facility] Name Value Range Interpretation Code Description Data Shameka rce(s) Supporting Document(s) SARS coronavirus 2 RNA [Presence] in Res piratory specimen by CHRISTOPHER with probe detection NEGATIVE [facility] This lab was ordered by [facility] a nd reported by [facility]. ID Date Data Source [id number] 04/01/2021 01:04:00 PM EDT [facility] ([facility]) Name Value Range Interpretation Code Description Data Shameka rce(s) Supporting Document(s) Prothrombin Time 13.7 s 12.5-14.3 [facility] ([facility]) Inr 1.03 [facility] ([place] [facility]) THERAPUTIC HUMAN INR VALUES INDICATIONS NORMAL RANGES PROPHYLAXIS/TREATMENT OF: VENOUS THROMBOSIS 2.0-3.0 PULMONARY EMBOLISM 2.0-3.0 PREVENTION OF SYSTEMIC EMBOLISM FROM: TISSUE HEART VALVES 2.0-3.0 ACUTE MYOCARDIAL INFARCTION 2.0-3.0 VALVULAR HEART DISEASE 2.0-3.0 ATRIAL FIBRILLATION 2.0-3.0 MECHANICAL VALVES(HIGH RISK) 2.5-3.5 RECURRENT MYOCARDIAL INFARCTION 2.5-3.5 ID Date Data Source [id number] 04/01/2021 01:04:00 PM EDT [facility] ([facility]) Name Value Range Interpretation Code Description Data Shameka rce(s) Supporting Document(s) White Blood Count 9.4 10 4.0-10.0 [facility] ([facility]) Red Blood Count 3.76 10 4.30-6.10 [facility] ([facility]) Hemoglobin 11.9 g/dL 13.5-17.5 [facility] ([place] [facility]) Mean Corpuscular Hemoglobin 31.6 pg 27.0-33.0 [facility] ([facility]) Mean Corpuscular Volume 98.7 fl 80.0-96.0 [facility] ([facility]) Hematocrit 37.1 % 42.0-52.0 [facility] ([place] [facility]) Red Cell Distribution Width 12.9 % 11.5-14.5 [facility] ([facility]) Mean Corpuscular HGB Conc 32.1 g/dL 32.0-36.5 [facility] ([facility]) Nucleated Red Blood Cell % 0.0 % 0-0 [facility] ([facility]) Platelet Count, Automated 193 10 150-450 [facility] ([facility]) ID Date Data Source [id number] 08/12/2020 11:22:00 AM EDT [facility] Name Value Range Interpretation Code Description Data Shameka rce(s) Supporting Document(s) Laboratory test finding (navigational concept) 2888.3 mg/L 1.3-20.0 [facility] ([facility]) NOTE: DILUTED AND VERIFIED Urine Creatinine 372.9 mg/dL 30.0-125.0 [facility] ([facility]) Microalb/Creat Ratio 774.6 ug/mg 0.0-30.0 [facility] ([facility]) ID Date Data Source [id number] 08/12/2020 11:22:00 AM EDT [facility] ([facility]) Name Value Range Interpretation Code Description Data Shameka rce(s) Supporting Document(s) Cholesterol [Mass/volume] in Serum or Plasma 165 mg/dL 131-200 [facility] Triglyceride [Mass/volume] in Serum or Plasma 115 mg/dL 30-150 [facility] ([facility]) Cholesterol in LDL [Mass/volume] in Serum or Plasma by calcu lation 90 CALC 50-159 [facility] ([facility] ) Cholesterol in HDL [Mass/volume] in Serum or Plasma 52 mg/dL 35-60 [facility] ([facility]) ID Date Data Source [id number] 08/12/2020 11:22:00 AM EDT [facility] ([facility]) Name Value Range Interpretation Code Description Data [...] (MDRD) 42 mL/min [facility] ([facility]) Glomerular filtration rate/1.73 sq M pre dicted among blacks [Volume Rate/Area] in Serum or Plasma by Creatinine-based formula (MDRD) 51 mL/min [facility] ([facility]) <content>CHRONIC KIDNEY DISEASE STAGING PER NKF</content>
<content></content>
<content>STAGE I & II GFR >= 60 NORMAL TO MILDLY DECREASED</content>
<content>STAGE III GFR 30-59 MODERATELY DECREASED</content>
<content>STAGE IV GFR 15-29 SEVERELY DECREASED</content>
<content>STAGE V GFR <15 VERY LITTLE GFR LEFT</content>
<content>ESRD GFR <15 ON CREDIT COLLECTIONS MANAGER</content>
<content></content>
<content></content> ID Date Data Source [id number] 08/12/2020 11:22:00 AM EDT [facility] ([facility]) Name Value Range Interpretation Code Description Data Shameka rce(s) Supporting Document(s) Glucose mean value [Mass/volume] in Blood Estimated fr om glycated hemoglobin 131 mg/dL 60-[facility] Hemoglobin A1c/Hemoglobin.total in Blood 6.2 % [facility]) Lab Result Notes: Pre-Diabetes 5.7 - 6.4 % Diabetes = or > 6.5% ID Date Data Source [id number] 08/12/2020 11:22:[address] [facility] Name Value Range Interpretation Code Description Data Shameka rce(s) Supporting Document(s) Hematocrit [Volume Fraction] of Blood by Automated count 44.5 % 3 7.0-51.0 [facility] ([facility]) Erythrocytes [#/volume] in Blood by Automated count 4.85 x10*6/UL 4.2 0-6.30 [facility] ([facility]) Hemoglobin [Mass/volume] in Blood 15.6 g/dL 12.0-18.0 [facility] ([facility]) Leukocytes [#/volume] in Blood by Automated count [...] count 7.4 x10*3/UL 2.0-7.8 [facility] ([facility]) ID Date Data Source [id number] 08/12/2020 11:22:00 AM EDT [facility] ([facility]) Name Value Range Interpretation Code Description Data Shameka rce(s) Supporting Document(s) Prostate specific Ag [Mass/volume] in Serum or Plasma 0.20 ng/mL [facility] ([facility]) This assay was performed on the [employer] Dimension EXL using the B- Galactosidase/CPRG methodology and should not be compared interchangeably with other methods. The PSA should not be used alone as a screening test for the presence or absence of malignant disease. ID Date Data Source [id number] 08/12/2020 11:22:00 AM EDT [facility] ([facility]) Name Value Range Interpretation Code Description Data Shameka rce(s) Supporting Document(s) Thyrotropin [Units/volume] in Serum or Plasma by Detec tion limit <= 0.05 mIU/L 0.61 uIU/mL 0.36-3.74 [facility] ([facility] ) ID Date Data Source [id number] 08/12/2020 11:22:00 AM EDT [facility] ([facility]) Name Value Range Interpretation Code Description Data Shameka rce(s) Supporting Document(s) Microalbumin Urine 2888.3 mg/L 1.3-20.0 [facility] ([facility]) NOTE: DILUTED AND VERIFIED Urine Creatinine 372.9 mg/dL 30.0-125.0 [facility] ([facility]) Microalb/Creat Ratio 774.6 ug/mg 0.0-30.0 [facility] ([facility]) ID Date Data Source [id number] 08/12/2020 11:22:00 AM EDT [facility] ([facility]) Name Value Range Interpretation Code Description Data Shameka rce(s) Supporting Document(s) Cholesterol [Mass/volume] in Serum or Plasma 165 mg/dL 131-200 [facility] ([facility]) Triglyceride [Mass/volume] in Serum or Plasma 115 mg/dL 30-150 [facility] ([facility]) Cholesterol in HDL [Mass/volume] in Serum or Plasma 52 mg/dL 35-60 [facility] ([facility]) Cholesterol in LDL [Mass/volume] in Serum or Plasma by calcu lation 90 CALC 50-159 [facility] ([facility]) ID Date Data Source [id number] 08/12/2020 11:22:00 AM EDT [facility] ([facility]) Name Value Range Interpretation Code Description Data Shameka rce(s) Supporting Document(s) Glucose [Mass/volume] in Serum or Plasma 125 mg/dL 74-99 [facility] ([facility]) 100-125 mg/dL PRE-DIABETES/FASTING >126 mg/dL DIABETES/FASTING Creatinine 1.6 mg/dL 0.6-1.3 [facility] ([place] [facility] Urea nitrogen [Mass/volume] in Serum or Plasma 19 mg/dL 7-18 [facility] ([facility]) Potassium [Moles/volume] in Serum or Plasma 4.5 meq/L 3.5-5.1 [facility] ([facility]) Chloride [Moles/volume] in Serum or Plasma 102 meq/L 98-107 [facility] ([facility]) Sodium [Moles/volume] in Serum or Plasma 138 meq/L 136-145 [facility] ([facility]) Total Bilirubin 0.8 mg/dL 0.2-1.0 [facility] ([facility]) Alkaline phosphatase isoenzyme [Units/volume] in Serum or Pl asma 83 mg/dL 46-116 [facility] ([facility]) Calcium [Mass/volume] in Serum or Plasma 9.0 mg/dL 8.5-10.1 [facility] ([facility]) Carbon dioxide, total [Moles/volume] in Serum or Plasma 27 meq/L 21 -32 [facility] ([facility]) Aspartate aminotransferase [Enzymatic activity/volume] in Serum or Plasma 67 U/L 15-37 [facility] ([facility] ) Alanine aminotransferase [Enzymatic activity/volume] in Seru m or Plasma 48 U/L 12-78 [facility] ([facility]) Albumin [Mass/volume] in Serum or Plasma 3.5 g/dL 3.4-5.0 [facility] ([facility]) A/G Ratio 0.81 CALC 1.00-1.90 [facility] [facility]) Proteinase 3 Ab [Units/volume] in Serum 7.8 g/dL 6.4-8.2 [facility] [facility] Glomerular filtration rate/1.73 sq M pre dicted among non-blacks [Volume Rate/Area] in Serum or Plasma by Creatinine-based formula (MDRD) 42 mL/min [facility] ([facility]) Glomerular filtration rate/1.73 sq M pre dicted among blacks [Volume Rate/Area] in Serum or Plasma by Creatinine-based formula (MDRD) 51 mL/min [facility] ([facility]) <content>CHRONIC KIDNEY DISEASE STAGING PER NKF</content>
<content></content>
<content>STAGE I & II GFR >= 60 NORMAL TO MILDLY DECREASED</content>
<content>STAGE III GFR 30-59 MODERATELY DECREASED</content>
<content>STAGE IV GFR 15-29 SEVERELY DECREASED</content>
<content>STAGE V GFR <15 VERY LITTLE GFR LEFT</content>
<content>ESRD GFR <15 ON CREDIT COLLECTIONS MANAGER</content>
<content></content> ID Date Data Source [id number] 08/12/2020 11:22:00 AM EDT [facility] Name Value Range Interpretation Code Description Data Shameka rce(s) Supporting Document(s) Hemoglobin A1c/Hemoglobin.total in Blood 6.2 % [facility] ([facility]) Lab Result Notes: Pre-Diabetes 5.7 - 6.4 % Diabetes = or > 6.5% Glucose mean value [Mass/volume] in Blood Estimated fr om glycated hemoglobin 131 mg/dL 60-110 [facility] ([facility] ) ID Date Data Source [id number] 08/12/2020 11:22:00 AM EDT [facility] ([facility] Name Value Range Interpretation Code Description Data Shameka rce(s) Supporting Document(s) Erythrocytes [#/volume] in Blood by Automated count 4.85 x10*6/UL 4.2 0-6.30 [facility] Leukocytes [#/volume] in Blood by Automated count 8.7 x10*3/UL 4.1-10 .9 [facility] MCV 91.7 fL 80.0-97.0 [facility] MCH 32.2 pg 26.0-32.0 [facility] ([facility]) Hematocrit [Volume Fraction] of Blood by Automated count 44.5 % 3 7.0-51.0 [facility] Hemoglobin [Mass/volume] in Blood 15.6 g/dL 12.0-18.0 [facility] MCHC 35.1 g/dL 31.0-38.0 [facility] ([facility]) Platelets [#/volume] in Blood by Automated count 222 x10*3/UL 140-440 [facility] ([facility]) Erythrocyte distribution width [Ratio] by Automated count 13.4 % 11.6-13.7 [facility] ([facility]) MPV 8.2 FL 7.8-11.0 [facility] ([facility]) Mid % 7.4 % 1.7-9.3 [facility] ([facility]) Lymph % 7.5 % 10.0-58.5 [facility] ([facility]) Neut % 85.1 % 37.0-92.0 [facility] ([facility]) Lymph # 0.6 x10*3/UL 0.6-4.1 [facility] ([facility]) Neut # 7.4 x10*3/UL 2.0-7.8 [facility] ([facility]) Mid # 0.7 x10*3/UL 0.1-0.6 [facility] ([facility]) Procedure Social History Code Duration Value Status Description Data Source(s ) Smoking 09/09/2020 12:00:00 AM EDT Patient is a former smoker completed Patient is a former smoker [facility] ([facility]) Vital Signs ID Date Data Source UNK Name Value Range Interpretation Code Description Data Source(s) Systolic blood pressure 110 mm[Hg] 110 [facility] Diastolic blood pressure 74 mm[Hg] 74 mm[Hg] [facility] ([facility]) Heart rate 56 /min 56 /min [facility] ([facility]) Body height 68 [in_i] 68 [in_i] [facility] ([facility]) 5'8" Body weight 154.00 [lb_av] 154.00 [lb_av] [facility] ([facility]) Oxygen saturation in Arterial blood by Pulse oximetry 97 % 97 % [facility] ([facility]) RM Air Body mass index (BMI) [Ratio] 23.4 kg/m2 23.4 k g/m2 [facility] ([facility]) Systolic blood pressure 112 mm[Hg] 112 mm[Hg] M [facility] ([facility]) Diastolic blood pressure 76 mm[Hg] 76 mm[Hg] [facility] ([facility]) Heart rate 80 /min 80 /min [facility] ([facility]) Body height 68 [in_i] 68 [in_i] [facility] ([facility]) 5'8" Body weight 157.00 [lb_av] 157.00 [lb_av] [facility] ([facility]) Body mass index (BMI) [Ratio] 23.9 kg/m2 23.9 k g/m2 [facility] ([facility]) Systolic blood pressure 102 mm[Hg] 102 mm[Hg] M [facility] ([facility]) Diastolic blood pressure 50 mm[Hg] 50 mm[Hg] [facility] ([facility]) Heart rate 62 /min 62 /min [facility] ([facility]) Body height 68 [in_i] 68 [in_i] [facility] ([facility] 5'8" Body weight 157.00 [lb_av] 157.00 [lb_av] [facility] ([facility]) Body mass index (BMI) [Ratio] 23.9 kg/m2 23.9 k g/m2 [facility] ([facility]) Systolic blood pressure 128 mm[Hg] 128 mm[Hg] [facility] Body height 68 [in_i] 68 [in_i] [facility] ([facility] 5'8" Body weight 181.00 [lb_av] 181.00 [lb_av] [facility] ([facility] Diastolic blood pressure 66 mm[Hg] 66 mm[Hg] [facility] ([facility] Heart rate 59 /min 59 /min [facility] ([facility] Body mass index (BMI) [Ratio] 27.5 kg/m2 27.5 k g/m2 [facility] ([facility] Systolic blood pressure 120 mm[Hg] 120 mm[Hg] M [facility] ([facility] Diastolic blood pressure 80 mm[Hg] 80 mm[Hg] [facility] ([facility]) Systolic blood pressure 120 mm[Hg] 120 mm[Hg] M [facility] ([facility]) Diastolic blood pressure 80 mm[Hg] 80 mm[Hg] [facility] ([facility]) Heart rate 78 /min 78 /min [facility] Body height 69 [in_i] 69 [in_i] [facility] 5'9" Body weight 180.00 [lb_av] 180.00 [lb_av] [facility] ([facility] Body weight 81.648 kg 81.648 kg [facility] ([facility] Body mass index (BMI) [Ratio] 26.6 kg/m2 26.6 k g/m2 [facility] ([facility]) Systolic blood pressure 118 mm[Hg] 118 mm[Hg] M [facility] ([facility]) Diastolic blood pressure 72 mm[Hg] 72 mm[Hg] [facility] ([facility]) Heart rate 70 /min 70 /min [facility] ([facility]) Body height 68 [in_i] 68 [in_i] [facility] ([facility]) 5'8" Body weight 187.00 [lb_av] 187.00 [lb_av] [facility] ([facility]) Body mass index (BMI) [Ratio] 28.4 kg/m2 28.4 k g/m2 [facility] ([facility])
[2021-09-03] MEDS ORDERED: PRED10TA2 PO (17:19)
[2021-09-03] MEDS ORDERED: HOME MED LIST COMPLETE! XX SCH (17:25)
[2021-09-03] MEDS: APIXABAN 2.5 MG TAB (ELIQUIS) PO SCH (20:38)
[2021-09-03] MEDS ORDERED: ATORVASTATIN 20 MG TAB PO SCH (21:00)
[2021-09-03 22:24] VITALS: BP 120/68
--- NOTE | 2021-09-03 22:51 | HPEPDOC ---
General Date of Admission Sep 03, 2021 at 15:18 Date of Service: Sep 03, 2021 Chief Complaint The patient is a 76-year-old male admitted with a reason for visit of Orthostatic Hypotension. History of Present Illness Mr. Gomez is a 76 year old male with CAD s/p CABG and ESRD on dialysis T,Th,Sat who is here with lightheadedness and hypotension. This morning, patient got up to get ready to go to dialysis, but upon standing, he felt lightheaded and dizzy. He felt like he was going to fall down. He laid down and rested. He tried again, but symptoms did not resolve. Otherwise, he denies any fever/chills, chest pain, dyspnea, abdominal pain, or dysuria. Patient reports he does pee a lot at night despite being on dialysis. Patient missed dialysis and went to the ED. Patient was recently started on midodrine by cardiology and first dose was taken yesterday. While here, patient was orthostatic positive. Lying was 127/60 and sitting was 77/49. Patient was given a small fluid bolus of 500mL given his dialysis history. Patient will be admitted for orthostatic hypotension in the setting of dialysis. Home Medications Scheduled Apixaban (Eliquis) 2.5 Mg Tablet, 2.5 MG PO BID, (Reported) Atorvastatin Calcium (Atorvastatin Calcium) 20 Mg Tablet, 20 MG PO QHS, (Reported) Ergocalciferol (Vitamin D2) (Drisdol) 1,250 Mcg Capsule, 50,000 UNIT PO QWEEK, (Reported) TUESDAYS Finasteride (Finasteride) 5 Mg Tablet, 5 MG PO DAILY, (Reported) Folic Acid (Folic Acid) 1 Mg Tablet, 1 MG PO DAILY, (Reported) Levothyroxine Sodium (Levoxyl) 88 Mcg Tab, 88 MCG PO DAILY, (Reported) Midodrine HCl (Midodrine HCl) 2.5 Mg Tablet, 2.5 MG PO BID, (Reported) Prednisone (Prednisone) 10 Mg Tablet, 10 MG PO TAPER, (Reported) Take 4 tabs daily x 3 days, then 3 tabs daily x 3 days, then 2 tabs daily x 3 days, then 1 tab daily x 3 days and stop Sertraline HCl (Sertraline HCl) 25 Mg Tablet, 25 MG PO DAILY, (Reported) Tamsulosin HCl (Flomax) 0.4 Mg Capsule, 0.4 MG PO DAILY, (Reported) Allergies Coded Allergies: No Known Allergies (Verified , 08/01/18) Past Medical History Medical History 1. CAD s/p CABG 2. Atrial fibrillation 3. Mitral valve annuloplasty 4. Aortic stenosis 5. Hypertension 6. History of C.diff colitis 7. ESRD on dialysis T,TH, Sat 8. IgA nephropathy 9. Secondary hyperparathyroidism 10. Anemia 11. Gout 12. Hypothyroidism Surgical History 1. CABG 2. Mitral valve annuloplasty Family History Father: at 92 years old. Patient does not know father's medical history Mother: at 77 years old. Patient does not know mother's medical history Social History * Smoker: former Smoker Alcohol: Denies Drugs: denies A-FIB/CHADSVASC A-FIB History Current/History of A-Fib/PAF?: Yes Current PO Anticoag Therapy: Yes Review of Systems Constitutional: Denies: Chills, Fever Eyes: Reports: Other (Blind in the left eye) ENT: Denies: Sore Throat Skin: Denies: Rash Pulmonary: Denies: Dyspnea, Cough Cardiovascular: Denies: Chest Pain Gastrointestinal: Denies: Nausea, Abdominal Pain, Diarrhea Genitourinary: Reports: Other Symptoms (Lots of urinary output); Denies: Dysuria Hematologic: Denies: Bruising Neurological: Denies: Numbness Psych: Denies: Anxiety, Depression Physical Examination General Exam: Positive: Alert, Cooperative Eye Exam: Positive: EOMI; Negative: Sclera icteric ENT Exam: Positive: Atraumatic Neck Exam: Positive: Supple Chest Exam: Positive: Clear to auscultation Heart Exam: Positive: Rate Normal, Regular Rhythm Abdomen Exam: Positive: Normal bowel sounds, Soft; Negative: Tenderness Extremity Exam: Negative: Edema (very skinny) Neuro Exam: Positive: Normal Speech, Cranial Nerves 3-12 NL Psych Exam: Positive: Mental status NL, Mood NL Vital Signs Vital Signs Date Time Temp Pulse Resp B/P (MAP) Pulse Ox O2 Delivery O2 Flow Rate FiO2 09/03/21 21:30 68 15 96 Room Air 09/03/21 20:43 119/55 (76) 09/03/21 18:21 96.8 Laboratory Data Labs 24H Laboratory Tests 2 09/03/21 11:39: Nucleated Red Blood Cells % (auto) 0.0, Anion Gap 7L, Glomerular Filtration Rate 15.9L, Calcium Level 8.4L, Total Bilirubin 1.0, Aspartate Amino Transf (AST/SGOT) 20, Alanine Aminotransferase (ALT/SGPT) 12, Alkaline Phosphatase 108, Total Creatine Kinase 40, Creatine Kinase MB 1.3, Creatine Kinase MB Relative Index 3.25, Troponin I 0.03, Total Protein 6.5, Albumin 2.5L, Albumin/Globulin Ratio 0.6, Thyroid Stimulating Hormone (TSH) 0.240L 09/03/21 13:45: Coronavirus (COVID-19)(PCR) NEGATIVE, Influenza Type A (RT-PCR) NEGATIVE, Influenza Type B (RT-PCR) NEGATIVE, Respiratory Syncytial Virus (PCR) NEGATIVE CBC/BMP Laboratory Tests 09/03/21 11:39 Microbiology Microbiology 09/03/21 Blood Culture, Received Pending 09/03/21 Blood Culture, Received Pending Assessment/Plan Mr. Gomez is a 76 year old male with CAD s/p CABG and ESRD on dialysis T,,Sat who is here with lightheadedness and hypotension. Patient is orthostatic posit eduar. Possibly secondary to tamsulosin vs dehydration. Patient was given 500mL. Nephrology consulted. Of note, patient had tapered off of prednisone several weeks back. Patient tells me he has not been on prednisone for a few weeks. Plan / VTE VTE Prophylaxis Ordered?: Yes Plan Plan 1. Orthostatic hypotensive -Lying 127/60, sitting 77/49 -Patient was given 500mL in the ED -Tamsulosin discontinued -Continue midodrine 2. ESRD on dialysis T,,Sat -Nephrology consulted -Renal diet 3. Atrial fibrillation -Continue apixaban 4. CAD s/p CABG -Continue atorvastatin 5. BPH -Continue finasteride -Hold tamsulosin due to orthostatic hypotension 6. Hypothyroidism -TSH mildly low -Continue with levothyroxine 7. Anxiety/depression -Continue sertraline 8. DVT ppx -Apixaban Disposition: Pending improvement in orthostatic hypotension ADONIS ORELLANA DO Sep 03, 2021 22:51
[2021-09-04 05:27] LABS: HEMATOCRIT 28.2 % (42.0-52.0); HEMOGLOBIN 9.4 g/dl (13.5-17.5); MEAN CORPUSCULAR HGB CONC 33.3 g/dl (32.0-36.5); MEAN CORPUSCULAR VOLUME 93.1 fl (80.0-96.0); PLATELET COUNT, AUTOMATED 228 10^3/uL (150-450); RED BLOOD COUNT 3.03 10^6/uL (4.30-6.10); WHITE BLOOD COUNT 7.3 10^3/uL (4.0-10.0)
[2021-09-04 05:45] LABS: CALCIUM LEVEL 8.1 MG/DL (8.8-10.2); CREATININE FOR GFR 3.81 MG/DL (0.70-1.30); GLOMERULAR FILTRATION RATE 16.4 (>42); POTASSIUM SERUM 3.1 MEQ/L (3.5-5.1)
[2021-09-04 06:00] VITALS: BP 102/54
[2021-09-04] MEDS ORDERED: LEVOTHYROXINE 88MCG TABLET (0.088 MG) PO SCH (06:00)
--- NOTE | 2021-09-04 08:06 | ECGEPIP ---
[facility] - ED Test Date: 2021-09-03 Pat Name: IVAN MAGALLANES Department: Room: - Gender: Male Order Entry Administrator: EPIFANIOLALY : 1945 Requested By: OMAR Redman Order Number: [id number] Reading MD: Sreedhar Sheth Measurements Intervals Nadeau Rate: 70 P: 21 ME: 358 QRS: -53 QRSD: 162 T: -6 QT: 446 QTc: 481 Interpretive Statements Atrial flutter with 4:1 AV block Right bundle branch block Left anterior fascicular block Bifascicular block Minimal voltage criteria for LVH, may be normal variant ( R in aVL ) SIMILAR TO 08/12/21 Electronically Signed on 09-04-2021 8:05:57 EDT by Sreedhar Sheth
[2021-09-04] MEDS ORDERED: POTASSIUM CHLORIDE 10% LIQ 20 MEQ/15 ML UDC PO ONE ×2 (08:20→12:00)
[2021-09-04 08:49] VITALS: BP_SYST 122; BP_SYST 96; BP_DIAS 49; BP_DIAS 55; BP_DIAS 67
[2021-09-04] MEDS: APIXABAN 2.5 MG TAB (ELIQUIS) PO SCH (08:55)
[2021-09-04] MEDS ORDERED: FOLIC ACID 1 MG TAB PO SCH (09:00)
[2021-09-04] MEDS ORDERED: SERTRALINE HCL 25 MG TABLET PO SCH (09:00)
[2021-09-04] MEDS ORDERED: FINASTERIDE 5 MG TAB PO SCH (09:00)
[2021-09-04] MEDS ORDERED: TAMSULOSIN 0.4 MG CAP PO SCH (09:00)
[2021-09-04] MEDS: MIDODRINE 2.5 MG TAB PO SCH ×2 (09:01→10:09)
[2021-09-04] MEDS ORDERED: SODIUM CHLORIDE 0.9% 1000ML IV ONE (10:00)
[2021-09-04 11:25] LABS: CORTISOL AM 20.1 UG/DL (4.3-22.4)
[2021-09-04 11:55] VITALS: BP_SYST 109; BP_SYST 110; BP_SYST 114; BP_DIAS 60; BP_DIAS 61; BP_DIAS 62
[2021-09-04 14:00] VITALS: BP 107/61
--- NOTE | 2021-09-05 10:21 | CR ---
CONSULTATION DATE: 09/04/2021 REQUESTING PHYSICIAN: Oleg Ascencio MD CONSULTING PHYSICIAN: Jackie Hobson MD REASON FOR CONSULTATION: Management of end-stage renal disease. CHIEF COMPLAINT: The patient presented to the emergency room yesterday with weakness and falls at home. HISTORY OF PRESENT ILLNESS: Raúl Gomez is a 76-year-old male with past medical history of end-stage renal disease on hemodialysis. Cause of renal failure is IgA nephropathy. His dialysis schedule is Tuesday, , Tuesday, coronary artery disease status post coronary artery bypass grafting (CABG), history of peripheral neuropathy status post IVIG, well known to nephrology service from previous hospitalizations and from outpatient dialysis center. He presented to the hospital yesterday with weakness, inability to walk around, lightheadedness, falls at home. When he came to the emergency room, he was found to have orthostatic hypotension. His blood pressure was dropping to 77 systolic on standing up. He was given IV fluid hydration. He was admitted to the hospitalist service. Nephrology service was called for further help in the management of this patient. I saw and evaluated the patient today morning at the bedside. He was feeling better today. His blood pressures were improved. He denies any active complaints at this time. 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 SURGICAL HISTORY: Status post coronary artery bypass grafting, history of mitral annuloplasty and history of renal biopsy. ALLERGIES: No known drug allergies.. FAMILY HISTORY: No significant family history of end-stage renal disease requiring hemodialysis. SOCIAL HISTORY: He denies any smoking, illicit drug abuse or alcohol abuse. REVIEW OF SYSTEMS: Constitutional: He denies any chills and fevers. He did complain of weakness on arrival, but he denies any weakness at this time. Eyes: He denies any blurry vision. He is blind in the left eye. ENT: Denies any dysphagia, odynophagia. Cardiovascular: Denies any chest pain or palpitations. Respiratory: Denies any shortness of breath. Gastrointestinal (GI): Denies any nausea or vomiting. Genitourinary (): Denies any dysuria or hematuria. Musculoskeletal: Denies any muscle pains. HEARING EXAMINER: He came in with weakness, however, he is better now. Hematological/oncological: Denies any easy bleeding or bruising. All other review of systems is negative. PHYSICAL EXAMINATION: Vital signs: Temperature is 97.7 degrees Fahrenheit, blood pressure 107/61, pulse is 88, respiratory rate of 18, saturating 97% on room air. Head and neck examination: Extraocular muscles are intact. Pupils equally round and reactive to light. Mucous membranes are moist. Neck is supple. There is no jugular venous distention (JVD). Cardiovascular: S1, S2, regular rate. No edema of the bilateral lower extremities. Respiratory: Chest is clear to auscultation bilaterally. Bilateral equal air entry. No rales or rhonchi. Abdomen: Soft, positive bowel sounds, nontender. No organomegaly. Musculoskeletal: No clubbing or cyanosis. Pulses are 2+. HEARING EXAMINER: No focal deficits. Power is 5/5 in all extremities. LABORATORY DATA: Complete blood count (CBC) showed a WBC of 7.3, hemoglobin 9.4, platelets 228. Basic metabolic panel (BMP) showed sodium 139, potassium 3.1, chloride 101, bicarbonate 29, BUN 25, creatinine is 3.8. MICROBIOLOGY: Blood cultures are negative. IMAGING DATA: CAT scan of the head was done, which did not show any acute pathology. Chest x-ray: Ruled out any pneumonia. CURRENT INPATIENT MEDICATIONS: The patient's medications were all reviewed by myself. The patient was given IV normal saline 250 mL bolus. He was also given a bolus in the emergency room. He is on Eliquis 2.5 mg by mouth twice a day, atorvastatin 20 mg by mouth every night at bedtime, finasteride 5 mg by mouth daily, folic acid 1 mg by mouth daily, levothyroxine 88 mcg by mouth daily, midodrine 5 mg by mouth twice a day, potassium chloride 40 mEq by mouth times one dose was given yesterday, Zoloft 25 mg by mouth daily, Flomax 0.4 mg by mouth daily. ASSESSMENT AND PLAN: 1. Orthostatic hypotension. The patient does not have any signs of infection. He does not have leukocytosis. He was given IV fluid hydration. A.m. cortisol level is 20, which rules out the possibility of renal insufficiency. The patient already does not get much fluid removed during dialysis because he comes below his dry weight. Blood pressures are better now. 2. Hypokalemia. The patient was given potassium chloride yesterday and today. Potassium level is improving. 3. Hyponatremia. The patient had hypovolemic hyponatremia. Sodium has improved after IV normal saline hydration. 4. Anemia and end-stage renal disease. Hemoglobin is slightly suboptimal. Anemia management will be done as an outpatient. 5. IgA nephropathy. His prednisone has been tapered down. There is no significant improvement in the renal function. The patient is dialysis dependent. 6. Atrial fibrillation. Heart rate is controlled. He is currently on Eliquis. 7. End stage Renal disease: No need of HD today. Next HD tomorrow as outpatient. Thank you for involving me in the care of this patient. DISPOSITION: If the patient's blood pressure stays stable, he can be discharged home. There is no urgent need for hemodialysis today. He can get his hemodialysis done as an outpatient as per his regular schedule. VINCENT
== END 2021-09-04 16:39 | disposition home health service (06) | DRG 312 ==
LOC: M ED 11:01 → EDBD 11:01 → M ED INP 15:18 → M MSPAV 22:28
PROVIDERS: ADMIT Internal Medicine; ATTEND Family Medicine
DX: I95.1 Orthostatic hypotension (principal); N18.6 End stage renal disease; E87.1 Hypo-osmolality and hyponatremia; I12.0 Hypertensive chronic kidney disease with stage 5 chronic kidney disease or end stage renal disease; N25.81 Secondary hyperparathyroidism of renal origin; Z99.81 Dependence on supplemental oxygen; E87.6 Hypokalemia; D63.1 Anemia in chronic kidney disease; I48.91 Unspecified atrial fibrillation; I25.10 Atherosclerotic heart disease of native coronary artery without angina pectoris; Z95.5 Presence of coronary angioplasty implant and graft; G62.9 Polyneuropathy, unspecified; M10.9 Gout, unspecified; Z20.822 Contact with and (suspected) exposure to COVID-19; Z87.891 Personal history of nicotine dependence; N40.0 Benign prostatic hyperplasia without lower urinary tract symptoms; F41.9 Anxiety disorder, unspecified; F32.9 Major depressive disorder, single episode, unspecified; Z79.01 Long term (current) use of anticoagulants; Z79.899 Other long term (current) drug therapy

== ENCOUNTER 2021-09-14 16:07 | Inpatient (IN) | payer MEDICARE, OTHER ==
[~2021-09-14] VITALS: Ht 177.8 cm; Wt 61.8 kg
[~2021-09-14 16:07] MED LIST changes: +DOXY-350 PO; +MIDO2.5T PO; +SERT25TA21 PO
--- OUTSIDE RECORDS SUMMARY | 2021-09-14 16:17 | CCD | Continuity of Care Document ---
Author Author Raúl BURCIAGA M.D. Organization Unknown Address [address] [facility] [address] [place] [address] Phone [phone] Care Team Providers Care Delivery Supervisor Name Role Phone Eduardo Burciaga MD AUTM [phone] [facility] Hea AUTM [phone] Problems Active Problems Provider Date Chronic diastolic [...] FOR 50 YRS 1 PACK A DAY Allergies and adverse reactions Active Allergies Criticality Reaction | Severity Comments Date Effexor Unable to assess criticality 09/22/2010 Pradaxa,Coumadin Unable to assess criticality hemothorax,rash 12/28/2011 Proscar Unable to assess criticality generic fill er or dye 09/14/2017 Medications Active Medications SIG Qnty Indications Ordering Provide r Date Sertraline HCL 25mg Tablets 1 by mouth every day at night 30tabs Raúl Pérez JR, PA 02/2021 Eliquis 2.5mg Tablets 1 by mouth twice [...] Tablets 1/2 by mouth twice a day 30tabs Eduardo Burciaga M.D. Vitamin B-1 100mg Tablets take one capsule [...] every day 90tabs Eduardo Burciaga M.D. 08/02/2016 Midodrine HCL 2.5mg Tablets take 1 tablet b.i.d. Unknown Doxycycline Hyclate 200mg Tablets DR 2 tabs once a day with food Unknown History Medications Prednisone 10mg Tablets 4 by [...] CPT Code Status Date Vaccine Lot # [id number] Given 08/13/2020 Influenza Vaccin e Quadrivalent Preser/Antibiotic Free Im Use [id number] Given 03/13/2015 Prevnar 13 [id number] Given 04/21/2011 Pneumovax 23 [id number] Given 09/05/2008 Influenza Virus Vaccine [id number] Refused 08/31/2017 Influenza Vaccin e Quadrivalent Preser/Antibiotic Free Im Use Vital Signs Date Vital Result Comment 09/11/2021 3:19pm BP Systolic 120 mmHg BP Diastolic 76 mmHg Height 68 inches 5'8" Weight 134.00 lb BMI (Body Mass Index) 20.4 kg/m2 08/03/2021 2:14pm BP Systolic 110 mmHg BP Diastolic 74 mmHg Heart Rate 56 /min Height 68 inches 5'8" Weight 154.00 lb O2 % BldC Oximetry 97 % RM Air BMI (Body Mass Index) 23.4 kg/m2 Results Test Acquired Date Facility Test Result H/L Range Note Complete Blood Count 09/03/2021 [facility] [address] [place], [place] [id number] [phone] White Blood Count 8.0 10 Normal 4.0-10.0 Red Blood Count 3.28 10 Low 4.30-6.10 Hemoglobin 10.2 g/dL Low 13.5-17.5 Hematocrit 30.9 % Low 42.0-52.0 Mean Corpuscular Volume 94.2 fl Normal 80.0-96.0 Mean Corpuscular Hemoglobin 31.1 pg Normal 27.0-33.0 Mean Corpuscular HGB Conc 33.0 g/dL Normal 32.0-36.5 Red Cell Distribution Width 14.0 % Normal 11.5-14.5 Platelet Count, Automated 240 10 Normal 150-450 Nucleated Red Blood Cell % 0.0 % Normal 0-0 Influenza A/B RSV Covid Amp 09/03/2021 [facility] [address] [place], [place] [id number] [phone] Influenza A Amplification NEGATIVE Normal Negati ve 1 Influenza B Amplification NEGATIVE Normal Negative 2 RSV Amplification NEGATIVE Normal Negative 3 Sars Covid-19 Amplification NEGATIVE Normal Negative 4 Laboratory test finding 09/03/2021 [facility] [address] [place] [address] [phone] Thyroid Stimulating Hormone 0.240 uIU/ML Low 0. 358-3.740 Cardiac Marker Panel 09/03/2021 [place] [id number] [place] [address] [phone] CPK Creatine Phosphokinase 40 U/L Normal 39-30 8 CK-MB Value Mass 1.3 NG/ML Normal <3.6 MB/CK Relative Index 3.25 Normal < Or =4 5 Troponin I 0.03 NG/ML Normal < 0.10 6 Comprehensive Metabolic Profil 09/03/2021 [facility] [address] [place] [address] [phone] Glucose, Fasting 93 mg/dL Normal 70-100 Blood Urea Nitrogen 20 mg/dL High 7-18 Creatinine For GFR 3.93 mg/dL High 0.70-1.30 Glomerular Filtration Rate 15.9 Low >42 7 Sodium Level 135 mEq/L Low 136-145 Potassium Serum 3.0 mEq/L Low 3.5-5.1 Chloride Level 96 mEq/L Low 98-107 Carbon Dioxide Level 32 mEq/L Normal 21-32 Anion Gap 7 mEq/L Low 8-16 Calcium Level 8.4 mg/dL Low 8.8-10.2 Ast/Sgot 20 U/L Normal 7-37 Alt/SGPT 12 U/L Normal 12-78 Alkaline Phosphatase 108 U/L Normal 45-117 Bilirubin,Total 1.0 mg/dL Normal 0.2-1.0 Total Protein 6.5 GM/DL Normal 6.4-8.2 Albumin 2.5 GM/DL Low 3.2-5.2 Albumin/Globulin Ratio 0.6 Normal Complete Blood Count 07/01/2021 [facility] Mitering Machine Operator: [place] [address] [phone] WBC 13.6 x10*3/UL High 4.1 - 10.9 8 RBC 4.09 x10*6/UL Low 4.20 - 6.30 [...] # 12.2 x10*3/UL High 2.0 - 7.8 A1c 07/01/2021 [facility] , Mitering Machine Operator: [place] [address] [phone] Hba1c 5.5 % <5.7 9 Est Avg Glucose 111 mg/dL High 60 - 110 Comprehensive Chem Profile 07/01/2021 [facility], Mitering Machine Operator: [place] [address] [phone] Glucose 104 mg/dL High 74 - 99 10 BUN 22 mg/dL High 7 - 18 11 Creatinine 2.8 mg/dL High 0.6 - 1.3 [...] Low >60 GFR 27 mL/min Low >60 12 Lipid Profile 07/01/2021 [facility] , Mitering Machine Operator: [place] [address] [phone] Cholesterol 184 mg/dL 131 - 200 Triglycerides 146 mg/dL 30 - 150 HDL Cholesterol 80 mg/dL High 35 - 60 LDL (Calculated) 75 CALC 50 - 159 Laboratory test finding 07/01/2021 [facility] dhiraj olson Mitering Machine Operator: [place] [address] [phone] Thyroid Stimulating Hormone 0.88 uIU/mL 0.3 6 - 3.74 Complete Blood Count 06/17/2021 [facility] Mitering Machine Operator: [place] [address] [phone] WBC 11.2 x10*3/UL High 4.1 - 10.9 13 RBC 4.02 x10*6/UL Low 4.20 - 6.30 [...] 2.0 - 7.8 Basic Metabolic Panel 06/17/2021 [facility] Mitering Machine Operator: [place] [address] [phone] Glucose 149 mg/dL High 74 - 99 14 BUN 27 mg/dL High 7 - 18 15 Creatinine 3.1 mg/dL High 0.6 - 1.3 Sodium 140 mEq/L 136 - 145 Potassium 3.8 mEq/L 3.5 - 5.1 Chloride 102 mEq/L 98 - 107 Carbon Dioxide 33 mEq/L High 21 - 32 Calcium 9.1 mg/dL 8.5 - 10.1 GFR 20 mL/min Low >60 GFR 24 mL/min Low >60 16 Laboratory test finding 06/17/2021 [facility] dhiraj olson Mitering Machine Operator: Dr Laith Silveira [place] [id number] [phone] Thyroid Stimulating Hormone 2.97 uIU/mL 0.3 6 - 3.74 Laboratory test finding 05/22/[address] [address] [phone] Platelet Estimate DECREASED Normal Normal Differential 05/22/2021 [facility] [address] [place] [address] [phone] Neutrophils 64 % Normal 28-66 Bands 12 % High < 11 Lymphocytes 11 % Low 16-44 Monocytes 9 % High 0-5 Basophils 1 % Normal 0-1 Metamyelocytes 1 % High 0-0 Myelocytes 2 % High 0-0 CBC With Differential 05/22/[address] [address] [phone] White Blood Count 8.4 10 Normal 4.0-10.0 [...] % High 0-0 Laboratory test finding 05/22/[address] [address] [phone] Thyroid Stimulating Hormone 1.940 uIU/ML Normal 0. 358-3.740 Free T4 0.90 ng/dL Normal 0.76-1.46 Liver Profile 05/22/2021 [facility] [address] [place] [address] [phone] Ast/Sgot 29 U/L Normal 7-37 Alt/SGPT 53 U/L Normal 12-78 Alkaline Phosphatase 131 U/L High 45-117 Bilirubin,Total 0.4 mg/dL Normal 0.2-1.0 Bilirubin,Direct 0.2 mg/dL Normal 0.0-0.2 Total Protein 5.8 GM/DL Low 6.4-8.2 Albumin 2.6 GM/DL Low 3.2-5.2 Albumin/Globulin Ratio 0.8 Normal Basic Metabolic Profile 05/22/2021 [facility] [address] [place] [address] [phone] Glucose, Fasting 94 mg/dL Normal 70-100 Blood Urea Nitrogen 28 mg/dL High 7-18 Creatinine For GFR 4.03 mg/dL High 0.70-1.30 Glomerular Filtration Rate 15.4 Low >42 1 7 Sodium Level 141 mEq/L Normal 136-145 Potassium Serum 3.8 mEq/L Normal 3.5-5.1 Chloride Level 102 mEq/L Normal 98-107 Carbon Dioxide Level 29 mEq/L Normal 21-32 Anion Gap 10 mEq/L Normal 8-16 Calcium Level 7.9 mg/dL Low 8.8-10.2 Cardiac Marker Panel 05/22/2021 [facility] [address] [place] [address] [phone] CPK Creatine Phosphokinase 58 U/L Normal 39-30 8 CK-MB Value Mass 3.1 NG/ML Normal <3.6 MB/CK Relative Index 5.34 High < Or =4 18 Troponin I 0.14 NG/ML High < 0.10 19 Influenza A/B RSV Covid Amp 05/22/2021 [facility] [address] [place] [address] [phone] Influenza A Amplification NEGATIVE Normal Negati ve 20 Influenza B Amplification NEGATIVE Normal Negative 21 RSV Amplification NEGATIVE Normal Negative 22 Sars Covid-19 Amplification NEGATIVE Normal Negative 23 Laboratory test finding 05/22/2021 [facility] [address] [place] [address] [phone] C Reactive Protein Quantitativ 10.10 mg/dL High 0.00-0.30 Cardiac Marker Panel 05/22/2021 [facility] [address] [place] [address] [phone] CPK Creatine Phosphokinase 55 U/L Normal 39-30 8 CK-MB Value Mass 3.2 NG/ML Normal <3.6 MB/CK Relative Index 5.82 High < Or =4 24 Troponin I 0.13 NG/ML High < 0.10 25 Laboratory test finding 05/07/2021 [facility] [address] [place] [address] [phone] iSTAT Troponin 0.10 NG/ML High 0.00-0.08 Istat Chem8+ Panel 05/07/2021 [facility] [address] [place] [address] [phone] iSTAT HCT 33.0 % Low 38.0-51.0 iSTAT Glucose 89 mg/dL Normal 70-105 iSTAT Sodium 140 mEq/L Normal 136-145 iSTAT Potassium 3.9 mEq/L Normal 3.5-5.1 iSTAT CA++ 4.2 mg/dL Low 4.5-5.3 iSTAT Chloride 100 mEq/L Normal 98-109 iSTAT Co2 24.0 MM/L Normal 23.0-27.0 iSTAT BUN 41 mg/dL High 8-26 iSTAT Creatinine 4.4 mg/dL High 0.6-1.3 CBC With Differential 05/07/2021 [place] [place] [address] [phone] White Blood Count 6.9 10 Normal 4.0-10.0 [...] 36.0-66.0 Lymph % 5.7 % Low 24.0-44.0 [place] % 5.1 % Normal 2.0-8.0 Eos % 3.6 % High 0.0-3.0 Baso % 0.3 % Normal 0.0-1.0 Immature Granulocyte % 2.6 % Normal 0-3.0 Nucleated Red Blood Cell % 0.0 % Normal 0-0 Neutrophils # 5.7 10 Normal 1.5-8.5 Lymph # 0.4 10 Low 1.5-5.0 [place] # 0.4 10 Normal 0.0-0.8 Eos # 0.3 10 Normal 0.0-0.5 Baso # 0.0 10 Normal 0.0-0.2 Laboratory test finding 05/07/[address] [address] [phone] Ammonia < 10 uMOL/L Normal <32 Liver Profile 05/07/2021 [facility] [address] [place] [address] [phone] Ast/Sgot 70 U/L High 7-37 Alt/SGPT 69 U/L Normal 12-78 Alkaline Phosphatase 84 U/L Normal 45-117 Bilirubin,Total 0.5 mg/dL Normal 0.2-1.0 Bilirubin,Direct 0.2 mg/dL Normal 0.0-0.2 Total Protein 5.3 GM/DL Low 6.4-8.2 Albumin 2.4 GM/DL Low 3.2-5.2 Albumin/Globulin Ratio 0.8 Normal Basic Metabolic Profile 05/07/[address] [address] [phone] Glucose, Fasting 90 mg/dL Normal 70-100 Blood Urea Nitrogen 41 mg/dL High 7-18 Creatinine For GFR 4.06 mg/dL High 0.70-1.30 Glomerular Filtration Rate 15.3 Low >42 2 6 Sodium Level 140 mEq/L Normal 136-145 Potassium Serum 3.9 mEq/L Normal 3.5-5.1 Chloride Level 106 mEq/L Normal 98-107 Carbon Dioxide Level 27 mEq/L Normal 21-32 Anion Gap 7 mEq/L Low 8-16 Calcium Level 7.4 mg/dL Low 8.8-10.2 Laboratory test finding 05/07/2021 [facility] [address] [place] [address] [phone] Thyroid Stimulating Hormone 0.505 uIU/ML Normal 0. 358-3.740 Influenza A/B RSV Covid Amp 05/07/2021 [facility] [address] [place] [address] [phone] Influenza A Amplification NEGATIVE Normal Negati ve 27 Influenza B Amplification NEGATIVE Normal Negative 28 RSV Amplification NEGATIVE Normal Negative 29 Sars Covid-19 Amplification NEGATIVE Normal Negative 30 Cardiac Marker Panel 04/27/2021 [facility] [address] [place] [address] [phone] CPK Creatine Phosphokinase 850 U/L High 39-30 8 CK-MB Value Mass 7.7 NG/ML High <3.6 MB/CK Relative Index 0.91 Normal < Or =4 31 Troponin I 1.15 NG/ML High < 0.10 32 Complete Blood Count 04/01/2021 [facility] [address] [place] [address] [phone] White Blood Count 9.4 10 Normal 4.0-10.0 [...] 0.0 % Normal 0-0 Prothrombin Time/Inr 04/01/2021 [facility] [address] [place] [address] [phone] Prothrombin Time 13.7 seconds Normal 12.5-14.3 Inr 1.03 Normal 33 1 Negative results do not prec lude influenza or RSV virus infection and should not be used as the sole basis for treatment or other patient management decisions. 2 Negative results do not prec lude influenza or RSV virus infection and should not be used as the sole basis for treatment or other patient management decisions. 3 Negative results do not prec lude influenza or RSV virus infection and should not be used as the sole basis for treatment or other patient management decisions. 4 A false negative result may occur if [...] pathogens. DISCLAIMER: Testing was performed using the [employer] SARS-CoV-2 test. This test was developed and its performance characteristics determined by [employer]. This test has not been FDA cleared [...] the authorization is terminated or revoked sooner. 5 DIAGNOSIS CRITERIA MMB ng/ml Relative Index (RI) NON-AMI < or = 5 N/A [place] ZONE > 5 < or = 4 AMI > 5 > 4 6 Troponin I Reference Interva l for [employer] [place] LOCI: 99th Percentile= 0.00-0.045 ng/ml Risk Stratification: <= 0.10 ng/ml Decreased Risk for Adverse Clinical Events. 0.10-1.50 ng/ml Increased Risk for Adv erse Clinical Events. Evaluation of additional criterion and/or repeat testing in 2-6 hours is suggested to rule out myocardial damage. >= 1.50 ng/ml Indicative of Myocardial Injury. 7 Units are mL/min/1.73 m2 Chronic Kidney Disease Staging per NKF: Stage I & II GFR >=60 Normal to Mildly Decreased Stage III GFR 30-59 Moderately Decreased Stage IV GFR 15-29 Severely Decreased Stage V GFR <15 Very Little GFR Left ESRD GFR <15 on TRANSFER KNITTER 8 NOTE: CBC VERIFIED 9 Lab Result Notes: Pre-Diabetes 5.7 - 6.4 % Diabetes = or > 6.5% 10 100-125 mg/dL PRE-DIABET ES/FASTING >126 mg/dL DIABETES/FASTING 11 NOTE: BUN,CREAT VERIFIED 12 CHRONIC KIDNEY DISEASE STAGI NG PER NKF STAGE I & II GFR >= 60 NORMAL TO MILDLY DECREASED STAGE III GFR 30-59 MODERATELY DECREASED STAGE IV GFR 15-29 SEVERELY DECREASED STAGE V GFR <15 VERY LITTLE GFR LEFT ESRD GFR <15 ON TRANSFER KNITTER 13 CRITICAL: CBC VERIFIED 14 100-125 mg/dL PRE-DIABET ES/FASTING >126 mg/dL DIABETES/FASTING 15 NOTE: BUN,CREAT VERIFIED 16 CHRONIC KIDNEY DISEASE STAGI NG PER NKF STAGE I & II GFR >= 60 NORMAL TO MILDLY DECREASED STAGE III GFR 30-59 MODERATELY DECREASED STAGE IV GFR 15-29 SEVERELY DECREASED STAGE V GFR <15 VERY LITTLE GFR LEFT ESRD GFR <15 ON TRANSFER KNITTER 17 Units are mL/min/1.73 m2 Chronic Kidney Disease Staging per NKF: Stage I & II GFR >=60 Normal to Mildly Decreased Stage III GFR 30-59 Moderately Decreased Stage IV GFR 15-29 Severely Decreased Stage V GFR <15 Very Little GFR Left ESRD GFR <15 on TRANSFER KNITTER 18 DIAGNOSIS CRITERIA MMB ng/ml Relative Index (RI) NON-AMI < or = 5 N/A [place] ZONE > 5 < or = 4 AMI > 5 > 4 19 Troponin I Reference Interva l for [employer] LOCI: 99th Percentile= 0.00-0.045 ng/ml Risk Stratification: <= 0.10 ng/ml Decreased Risk for Adverse Clinical Events. 0.10-1.50 ng/ml Increased Risk for Adv erse Clinical Events. Evaluation of additional criterion and/or repeat testing in 2-6 hours is suggested to rule out myocardial damage. >= 1.50 ng/ml Indicative of Myocardial Injury. 20 Negative results do not prec lude [...] pathogens. DISCLAIMER: Testing was performed using the [employer] SARS-CoV-2 test. This test was developed and its performance characteristics determined by [employer]. This test has not been FDA cleared [...] Troponin I Reference Interva l for [employer] LOCI: 99th Percentile= 0.00-0.045 ng/ml Risk Stratification: <= 0.10 ng/ml Decreased Risk for Adverse Clinical Events. 0.10-1.50 ng/ml Increased Risk for Adv erse Clinical Events. Evaluation of additional criterion and/or repeat testing in 2-6 hours is suggested to rule out myocardial damage. >= 1.50 ng/ml Indicative of Myocardial Injury. 26 Units are mL/min/1.73 m2 Chronic Kidney Disease Staging per NKF: Stage I & II GFR >=60 Normal to Mildly Decreased Stage III GFR 30-59 Moderately Decreased Stage IV GFR 15-29 Severely Decreased Stage V GFR <15 Very Little GFR Left ESRD GFR <15 on TRANSFER KNITTER 27 Negative results do not prec lude influenza or RSV virus infection and should not be used as the sole basis for treatment or other patient management decisions. 28 Negative results do not prec lude influenza or RSV virus infection and should not be used as the sole basis for treatment or other patient management decisions. 29 Negative results do not prec lude influenza or RSV virus infection and should not be used as the sole basis for treatment or other patient management decisions. 30 A false negative result may occur if [...] pathogens. DISCLAIMER: Testing was performed using the [employer] SARS-CoV-2 test. This test was developed and its performance characteristics determined by [employer]. This test has not been FDA cleared [...] the authorization is terminated or revoked sooner. 31 DIAGNOSIS CRITERIA MMB ng/ml Relative Index (RI) NON-AMI < or = 5 N/A [place] ZONE > 5 < or = 4 AMI > 5 > 4 32 Troponin I Reference Interva l for [employer] [place] LOCI: 99th Percentile= 0.00-0.045 ng/ml Risk Stratification: <= 0.10 ng/ml Decreased Risk for Adverse Clinical Events. 0.10-1.50 ng/ml Increased Risk for Adv erse Clinical Events. Evaluation of additional criterion and/or repeat testing in 2-6 hours is suggested to rule out myocardial damage. >= 1.50 ng/ml Indicative of Myocardial Injury. 33 THERAPUTIC HUMAN INR VALUES INDICATIONS NORMAL RANGES PROPHYLAXIS/TREATMENT OF: VENOUS THROMBOSIS 2.0-3.0 PULMONARY EMBOLISM 2.0-3.0 PREVENTION OF SYSTEMIC EMBOLISM FROM: TISSUE HEART VALVES 2.0-3.0 ACUTE MYOCARDIAL INFARCTION 2.0-3.0 VALVULAR HEART DISEASE 2.0-3.0 ATRIAL FIBRILLATION 2.0-3.0 MECHANICAL VALVES(HIGH RISK) 2.5-3.5 RECURRENT MYOCARDIAL INFARCTION 2.5-3.5 Procedures Date Code Description Status 08/03/2021 14519 Office/Outpatient Established Lo w MDM 20-29 Min Completed 07/03/2021 89324 Office/Outpatient Established Mo d MDM 30-39 Min Completed 06/17/2021 94667 Office/Outpatient Established Mo d MDM 30-39 Min Completed 07/18/2018 [id number] Diabetic Retinal Eye Exam [facility] 01/25/2017 [id number] Diabetic Foot Exam Completed 01/21/2017 [id number] Diabetic Foot Exam Completed 04/14/2006 [id number] Bone Mineral Density Test [facility] Medical Devices Description No Information Available Encounters Type Date Location Provider Dx Diagnosis Office Visit 08/03/2021 2:40p [facility] PRisa Pérez JR PA N18.6 End stage renal disease Z99.2 Dependence on renal dialysis F43.21 Adjustment disorder with dep ressed mood E11.40 Type 2 diabetes mellitus wit h diabetic neuropathy, unsp R26.89 Other abnormalities of gait and mobility Office Visit 07/03/2021 2:00p [facility] P.Tami Burciaga M.D. E78.00 Pure hypercholesterolemia, unspecified E11.40 Type 2 diabetes mellitus wit h diabetic neuropathy, unsp E03.9 Hypothyroidism, unspecified R26.89 Other abnormalities of gait and mobility N18.6 End stage renal disease Z99.2 Dependence on renal dialysis Office Visit 06/17/2021 10:20a [facility] PWILVER Ervin JR R26.89 Other abnormalities of gait and mobility N17.9 Acute kidney failure, unspec ified I12.9 Hypertensive chronic kidney disease w stg 1-4/unsp chr kdny N18.4 Chronic kidney disease, stag e 4 (severe) I73.9 Peripheral vascular disease, unspecified I48.91 Unspecified atrial fibrillat ion I48.92 Unspecified atrial flutter Z79.01 halfway (current) use of a nticoagulants E11.40 Type 2 diabetes mellitus wit h diabetic neuropathy, unsp 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 07/03/2021 N18.6 End stage renal disease Eduardo Burciaga M.D. 07/03/2021 Z99.2 Dependence on renal dialysis Patrick Burciaga M.D. 07/01/2021 D64.9 Anemia, unspecified Eduardo mohamud M.D. 07/01/2021 D64.9 Anemia, unspecified Eduardo mohamud M.D. 07/01/2021 E11.40 Type 2 diabetes kaye itus with diabetic neuropathy, unspecified Eduardo Burciaga M.D. 07/01/2021 D64.9 Anemia, unspecified Lab Schedule 07/01/2021 E03.9 Hypothyroidism, unspecified Robby Burciaga M.D. 07/01/2021 E11.40 Type 2 diabetes [...] atrial flutter WILVER Nava JR 06/17/2021 Z79.01 signal maintainer (current) use of antic oagulants WILVER Nunez JR 06/17/2021 E11.40 Type 2 diabetes kaye itus with diabetic neuropathy, unspecified WILVER Nunez JR 06/17/2021 I25.10 Atherosclerotic heart disease of [place] coronary artery with WILVER Nunez JR 06/17/2021 E03.9 Hypothyroidism, unspecified Robe WILVER Ni JR 06/17/2021 D64.9 Anemia, unspecified WILVER Constantino JR 06/17/2021 J44.9 Chronic obstructive pulmonary di sease, unspecified WILVER Nunez JR Plan of Treatment Future Appointment(s):* 11/09/2021 1:00 pm - Lab Schedule at [facility] * 11/11/2021 1:00 pm - Eduardo Burciaga M.D. at [facility] Functional Status Description No Information Available Mental Status Description No Information Available Referrals Description No Information Available
--- OUTSIDE RECORDS SUMMARY | 2021-09-14 16:17 | CCD | Continuity of Care Document ---
Author Author Raúl BURCIAGA M.D. Organization Unknown Address [address] [facility] [address] [place] [address] Phone [phone] Care Team Providers Care Monotype Machinist Name Role Phone Eduardo Burciaga MD AUTM [phone] [facility] AUTM [phone] Problems Active Problems Provider Date Chronic diastolic [...] CPT Code Status Date Vaccine Lot # [id number] Given 08/13/2020 Influenza Vaccin e Quadrivalent Preser/Antibiotic Free Im Use [id number] [id number] Given 03/13/2015 Prevnar 13 [id number] Given 04/21/2011 Pneumovax 23 [id number] Given 09/05/2008 Influenza Virus Vaccine [id number] Refused 08/31/2017 Influenza Vaccin e Quadrivalent Preser/Antibiotic [...] H/L Range Note Complete Blood Count 09/03/2021 [facility] [address] [place], [place] [id number] [phone] White Blood Count 8.0 10 Normal 4.0-10.0 [...] 0-0 Influenza A/B RSV Covid Amp 09/03/2021 [facility] [address] [place], [place] [id number] [phone] Influenza A Amplification NEGATIVE Normal Negati ve 1 Influenza B Amplification NEGATIVE Normal Negative 2 RSV Amplification NEGATIVE Normal Negative 3 Sars Covid-19 Amplification NEGATIVE Normal Negative 4 Laboratory test finding 09/03/2021 [facility] [address] [place] [address] [phone] Thyroid Stimulating Hormone 0.240 uIU/ML Low 0. 358-3.740 Cardiac Marker Panel 09/03/2021 [id number] [place] [address] [phone] CPK Creatine Phosphokinase 40 U/L Normal 39-30 8 CK-MB Value Mass 1.3 NG/ML Normal <3.6 MB/CK Relative Index 3.25 Normal < Or =4 5 Troponin I 0.03 NG/ML Normal < 0.10 6 Comprehensive Metabolic Profil 09/03/2021 [facility] [address] [place] [address] [phone] Glucose, Fasting 93 mg/dL Normal 70-100 Blood [...] Ratio 0.6 Normal Complete Blood Count 07/01/2021 [facility] Parking Enforcer: [place] [address] [phone] WBC 13.6 x10*3/UL High 4.1 - 10.9 [...] x10*3/UL High 2.0 - 7.8 A1c 07/01/2021 [facility] , Parking Enforcer: [place] [address] [phone] Hba1c 5.5 % <5.7 9 Est Avg Glucose 111 mg/dL High 60 - 110 Comprehensive Chem Profile 07/01/2021 [facility], Parking Enforcer: [place] [address] [phone] Glucose 104 mg/dL High 74 - 99 [...] mL/min Low >60 12 Lipid Profile 07/01/2021 [facility] , Parking Enforcer: [place] [address] [phone] Cholesterol 184 mg/dL 131 - 200 Triglycerides 146 mg/dL 30 - 150 HDL Cholesterol 80 mg/dL High 35 - 60 LDL (Calculated) 75 CALC 50 - 159 Laboratory test finding 07/01/2021 [facility] dhiraj olson Parking Enforcer: [place] [address] [phone] Thyroid Stimulating Hormone 0.88 uIU/mL 0.3 6 - 3.74 Complete Blood Count 06/17/2021 [facility] Parking Enforcer: [place] Laith [place] [address] [phone] WBC 11.2 x10*3/UL High 4.1 - 10.9 [...] 2.0 - 7.8 Basic Metabolic Panel 06/17/2021 [facility] Parking Enforcer: [place] Laith [place] [address] [phone] Glucose 149 mg/dL High 74 - 99 [...] Low >60 16 Laboratory test finding 06/17/2021 [facility] dhiraj olson Parking Enforcer: Dr Laith Silveira [place] [id number] [phone] Thyroid Stimulating Hormone 2.97 uIU/mL 0.3 6 - 3.74 Laboratory test finding 05/22/[address] [address] [phone] Platelet Estimate DECREASED Normal Normal Differential 05/22/2021 [facility] nter [address] [place] [address] [phone] Neutrophils 64 % Normal 28-66 Bands 12 % High < 11 Lymphocytes 11 % Low 16-44 Monocytes 9 % High 0-5 Basophils 1 % Normal 0-1 Metamyelocytes 1 % High 0-0 Myelocytes 2 % High 0-0 CBC With Differential 05/22/[address] [address] [phone] White Blood Count 8.4 10 Normal 4.0-10.0 [...] % High 0-0 Laboratory test finding 05/22/[address] [address] [phone] Thyroid Stimulating Hormone 1.940 uIU/ML Normal 0. 358-3.740 Free T4 0.90 ng/dL Normal 0.76-1.46 Liver Profile 05/22/2021 [facility] nter [address] [place] [address] [phone] Ast/Sgot 29 U/L Normal 7-37 Alt/SGPT 53 U/L Normal 12-78 Alkaline Phosphatase 131 U/L High 45-117 Bilirubin,Total 0.4 mg/dL Normal 0.2-1.0 Bilirubin,Direct 0.2 mg/dL Normal 0.0-0.2 Total Protein 5.8 GM/DL Low 6.4-8.2 Albumin 2.6 GM/DL Low 3.2-5.2 Albumin/Globulin Ratio 0.8 Normal Basic Metabolic Profile 05/22/2021 [facility] [address] [place] [address] [phone] Glucose, Fasting 94 mg/dL Normal 70-100 Blood [...] mg/dL Low 8.8-10.2 Cardiac Marker Panel 05/22/2021 [facility] [address] [place] [address] [phone] CPK Creatine Phosphokinase 58 U/L Normal 39-30 8 CK-MB Value Mass 3.1 NG/ML Normal <3.6 MB/CK Relative Index 5.34 High < Or =4 18 Troponin I 0.14 NG/ML High < 0.10 19 Influenza A/B RSV Covid Amp 05/22/2021 [facility] [address] [place] [address] [phone] Influenza A Amplification NEGATIVE Normal Negati ve 20 Influenza B Amplification NEGATIVE Normal Negative 21 RSV Amplification NEGATIVE Normal Negative 22 Sars Covid-19 Amplification NEGATIVE Normal Negative 23 Laboratory test finding 05/22/2021 [facility] [address] [place] [address] [phone] C Reactive Protein Quantitativ 10.10 mg/dL High 0.00-0.30 Cardiac Marker Panel 05/22/2021 [facility] [address] [place] [address] [phone] CPK Creatine Phosphokinase 55 U/L Normal 39-30 8 CK-MB Value Mass 3.2 NG/ML Normal <3.6 MB/CK Relative Index 5.82 High < Or =4 24 Troponin I 0.13 NG/ML High < 0.10 25 Laboratory test finding 05/07/2021 [facility] [address] [place] [address] [phone] iSTAT Troponin 0.10 NG/ML High 0.00-0.08 Istat Chem8+ Panel 05/07/2021 [facility] [address] [place] [address] [phone] iSTAT HCT 33.0 % Low 38.0-51.0 iSTAT Glucose 89 mg/dL Normal 70-105 iSTAT Sodium 140 mEq/L Normal 136-145 iSTAT Potassium 3.9 mEq/L Normal 3.5-5.1 iSTAT CA++ 4.2 mg/dL Low 4.5-5.3 iSTAT Chloride 100 mEq/L Normal 98-109 iSTAT Co2 24.0 MM/L Normal 23.0-27.0 iSTAT BUN 41 mg/dL High 8-26 iSTAT Creatinine 4.4 mg/dL High 0.6-1.3 CBC With Differential 05/07/2021 [address] [place] [address] [phone] White Blood Count 6.9 10 Normal 4.0-10.0 [...] 36.0-66.0 Lymph % 5.7 % Low 24.0-44.0 [place] % 5.1 % Normal 2.0-8.0 Eos % 3.6 % High 0.0-3.0 Baso % 0.3 % Normal 0.0-1.0 Immature Granulocyte % 2.6 % Normal 0-3.0 Nucleated Red Blood Cell % 0.0 % Normal 0-0 Neutrophils # 5.7 10 Normal 1.5-8.5 Lymph # 0.4 10 Low 1.5-5.0 [place] # 0.4 10 Normal 0.0-0.8 Eos # 0.3 10 Normal 0.0-0.5 Baso # 0.0 10 Normal 0.0-0.2 Laboratory test finding 05/07/[address] [address] [phone] Ammonia < 10 uMOL/L Normal <32 Liver Profile 05/07/2021 [facility] nter [address] [place] [address] [phone] Ast/Sgot 70 U/L High 7-37 Alt/SGPT 69 U/L Normal 12-78 Alkaline Phosphatase 84 U/L Normal 45-117 Bilirubin,Total 0.5 mg/dL Normal 0.2-1.0 Bilirubin,Direct 0.2 mg/dL Normal 0.0-0.2 Total Protein 5.3 GM/DL Low 6.4-8.2 Albumin 2.4 GM/DL Low 3.2-5.2 Albumin/Globulin Ratio 0.8 Normal Basic Metabolic Profile 05/07/[address] [address] [phone] Glucose, Fasting 90 mg/dL Normal 70-100 Blood [...] mg/dL Low 8.8-10.2 Laboratory test finding 05/07/2021 [facility] [address] [place] [address] [phone] Thyroid Stimulating Hormone 0.505 uIU/ML Normal 0. 358-3.740 Influenza A/B RSV Covid Amp 05/07/2021 [facility] [address] [place] [address] [phone] Influenza A Amplification NEGATIVE Normal Negati ve 27 Influenza B Amplification NEGATIVE Normal Negative 28 RSV Amplification NEGATIVE Normal Negative 29 Sars Covid-19 Amplification NEGATIVE Normal Negative 30 Cardiac Marker Panel 04/27/2021 [facility] [address] [place] [address] [phone] CPK Creatine Phosphokinase 850 U/L High 39-30 8 CK-MB Value Mass 7.7 NG/ML High <3.6 MB/CK Relative Index 0.91 Normal < Or =4 31 Troponin I 1.15 NG/ML High < 0.10 32 Complete Blood Count 04/01/2021 [facility] [address] [place] [address] [phone] White Blood Count 9.4 10 Normal 4.0-10.0 [...] 0.0 % Normal 0-0 Prothrombin Time/Inr 04/01/2021 [facility] [address] [place] [address] [phone] Prothrombin Time 13.7 seconds Normal 12.5-14.3 Inr [...] pathogens. DISCLAIMER: Testing was performed using the [facility] SARS-CoV-2 test. This test was developed and its performance characteristics determined by [facility]. This test has not been FDA cleared [...] Troponin I Reference Interva l for [employer] [place] LOCI: 99th Percentile= 0.00-0.045 ng/ml Risk Stratification: [...] Little GFR Left ESRD GFR <15 on SUSTAINABLE DESIGN CONSULTANT 8 NOTE: CBC VERIFIED 9 Lab Result [...] LITTLE GFR LEFT ESRD GFR <15 ON SUSTAINABLE DESIGN CONSULTANT 13 CRITICAL: CBC VERIFIED 14 100-125 mg/dL PRE-DIABET ES/FASTING >126 mg/dL DIABETES/FASTING 15 NOTE: BUN,CREAT VERIFIED 16 CHRONIC KIDNEY DISEASE STAGI NG PER NKF STAGE I & II GFR >= 60 NORMAL TO MILDLY DECREASED STAGE III GFR 30-59 MODERATELY DECREASED STAGE IV GFR 15-29 SEVERELY DECREASED STAGE V GFR <15 VERY LITTLE GFR LEFT ESRD GFR <15 ON SUSTAINABLE DESIGN CONSULTANT 17 Units are mL/min/1.73 m2 Chronic Kidney Disease Staging per NKF: Stage I & II GFR >=60 Normal to Mildly Decreased Stage III GFR 30-59 Moderately Decreased Stage IV GFR 15-29 Severely Decreased Stage V GFR <15 Very Little GFR Left ESRD GFR <15 on SUSTAINABLE DESIGN CONSULTANT 18 DIAGNOSIS CRITERIA MMB ng/ml Relative Index (RI) NON-AMI < or = 5 N/A [place] ZONE > 5 < or = 4 AMI > 5 > 4 19 Troponin I Reference Interva l for [employer] LOCI: 99th Percentile= 0.00-0.045 ng/ml Risk Stratification: [...] pathogens. DISCLAIMER: Testing was performed using the [facility] SARS-CoV-2 test. This test was developed and its performance characteristics determined by [facility]. This test has not been FDA cleared [...] Troponin I Reference Interva l for [employer] LOCI: 99th Percentile= 0.00-0.045 ng/ml Risk Stratification: [...] Little GFR Left ESRD GFR <15 on SUSTAINABLE DESIGN CONSULTANT 27 Negative results do not prec lude [...] pathogens. DISCLAIMER: Testing was performed using the [facility] SARS-CoV-2 test. This test was developed and its performance characteristics determined by [facility]. This test has not been FDA cleared [...] Troponin I Reference Interva l for [employer] [place] LOCI: 99th Percentile= 0.00-0.045 ng/ml Risk Stratification: [...] 2.5-3.5 Procedures Date Code Description Status 08/03/2021 51484 Office/Outpatient Established Lo w MDM 20-29 Min Completed 07/03/2021 01111 Office/Outpatient Established Mo d MDM 30-39 Min Completed 06/17/2021 15065 Office/Outpatient Established Mo d MDM 30-39 Min Completed 07/18/2018 [id number] Diabetic Retinal Eye Exam [facility] 01/25/2017 [id number] Diabetic Foot Exam Completed 01/21/2017 [id number] Diabetic Foot Exam Completed 04/14/2006 [id number] Bone Mineral Density Test [facility] Medical Devices Description No Information Available Encounters Type Date Location Provider Dx Diagnosis Office Visit 08/03/2021 2:40p [facility] PRisa Pérez JR PA N18.6 End stage renal disease Z99.2 Dependence on renal dialysis F43.21 Adjustment disorder with dep ressed mood E11.40 Type 2 diabetes mellitus wit h diabetic neuropathy, unsp R26.89 Other abnormalities of gait and mobility Office Visit 07/03/2021 2:00p [facility] P.Tami Burciaga M.D. E78.00 Pure hypercholesterolemia, unspecified E11.40 Type 2 diabetes mellitus wit h diabetic neuropathy, unsp E03.9 Hypothyroidism, unspecified R26.89 Other abnormalities of gait and mobility N18.6 End stage renal disease Z99.2 Dependence on renal dialysis Office Visit 06/17/2021 10:20a [facility] PWILVER Ervin JR R26.89 Other abnormalities of gait and mobility N17.9 Acute kidney failure, unspec ified I12.9 Hypertensive chronic kidney disease w stg 1-4/unsp chr kdny N18.4 Chronic kidney disease, stag e 4 (severe) I73.9 Peripheral vascular disease, unspecified I48.91 Unspecified atrial fibrillat ion I48.92 Unspecified atrial flutter Z79.01 intermediate (current) use of a nticoagulants E11.40 Type [...] atrial flutter WILVER Nava JR 06/17/2021 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 * 11/11/2021 1:00 pm - Eduardo Burciaga M.D. at [facility] Functional Status Description No Information Available Mental Status Description No Information Available Referrals Description No Information Available
--- OUTSIDE RECORDS SUMMARY | 2021-09-14 16:17 | CCD | Continuity of Care Document ---
Author Author Raúl BURCIAGA M.D. Organization Unknown Address [address] [facility] [address] [place] [address] Phone [phone] Care Team Providers Care Percher Name Role Phone Eduardo Burciaga MD AUTM [phone] [facility] Hea AUTM [phone] Problems Active Problems Provider Date Chronic diastolic [...] CPT Code Status Date Vaccine Lot # [id number] Given 08/13/2020 Influenza Vaccin e Quadrivalent Preser/Antibiotic Free Im Use [id number] Given 03/13/2015 Prevnar 13 [id number] Given 04/21/2011 Pneumovax 23 [id number] Given 09/05/2008 Influenza Virus Vaccine [id number] Refused 08/31/2017 Influenza Vaccin e Quadrivalent Preser/Antibiotic [...] H/L Range Note Complete Blood Count 09/03/2021 [facility] [address] [place], [place] [id number] [phone] White Blood Count 8.0 10 Normal 4.0-10.0 [...] 0-0 Influenza A/B RSV Covid Amp 09/03/2021 [facility] [address] [place], [place] [id number] [phone] Influenza A Amplification NEGATIVE Normal Negati ve 1 Influenza B Amplification NEGATIVE Normal Negative 2 RSV Amplification NEGATIVE Normal Negative 3 Sars Covid-19 Amplification NEGATIVE Normal Negative 4 Laboratory test finding 09/03/2021 [facility] [address] [place] [address] [phone] Thyroid Stimulating Hormone 0.240 uIU/ML Low 0. 358-3.740 Cardiac Marker Panel 09/03/2021 [address] [place] [address] [phone] CPK Creatine Phosphokinase 40 U/L Normal 39-30 8 CK-MB Value Mass 1.3 NG/ML Normal <3.6 MB/CK Relative Index 3.25 Normal < Or =4 5 Troponin I 0.03 NG/ML Normal < 0.10 6 Comprehensive Metabolic Profil 09/03/2021 [facility] [address] [place] [address] [phone] Glucose, Fasting 93 mg/dL Normal 70-100 Blood [...] Ratio 0.6 Normal Complete Blood Count 07/01/2021 [facility] Business Administration Professor: [place] [address] [phone] WBC 13.6 x10*3/UL High 4.1 - 10.9 [...] x10*3/UL High 2.0 - 7.8 A1c 07/01/2021 [facility] , Business Administration Professor: [place] [address] [phone] Hba1c 5.5 % <5.7 9 Est Avg Glucose 111 mg/dL High 60 - 110 Comprehensive Chem Profile 07/01/2021 [facility], Business Administration Professor: [place] [address] [phone] Glucose 104 mg/dL High 74 - 99 [...] mL/min Low >60 12 Lipid Profile 07/01/2021 [facility] , Business Administration Professor: [place] [address] [phone] Cholesterol 184 mg/dL 131 - 200 Triglycerides 146 mg/dL 30 - 150 HDL Cholesterol 80 mg/dL High 35 - 60 LDL (Calculated) 75 CALC 50 - 159 Laboratory test finding 07/01/2021 [facility] Business Administration Professor: [place] [address] [phone] Thyroid Stimulating Hormone 0.88 uIU/mL 0.3 6 - 3.74 Complete Blood Count 06/17/2021 [facility] Business Administration Professor: [place] [address] [phone] WBC 11.2 x10*3/UL High 4.1 - 10.9 [...] 2.0 - 7.8 Basic Metabolic Panel 06/17/2021 [facility] Business Administration Professor: [place] [address] [phone] Glucose 149 mg/dL High 74 - 99 [...] Low >60 16 Laboratory test finding 06/17/2021 [facility] dhir[facility] olson Business Administration Professor: Dr Laith Silveira [place] [id number] [phone] Thyroid Stimulating Hormone 2.97 uIU/mL 0.3 6 - 3.74 Laboratory test finding 05/22/[address] [address] [phone] Platelet Estimate DECREASED Normal Normal Differential 05/22/2021 [facility] [address] [place] [address] [phone] Neutrophils 64 % Normal 28-66 Bands 12 % High < 11 Lymphocytes 11 % Low 16-44 Monocytes 9 % High 0-5 Basophils 1 % Normal 0-1 Metamyelocytes 1 % High 0-0 Myelocytes 2 % High 0-0 CBC With Differential 05/22/[address] [address] [phone] White Blood Count 8.4 10 Normal 4.0-10.0 [...] % High 0-0 Laboratory test finding 05/22/[address] [address] [phone] Thyroid Stimulating Hormone 1.940 uIU/ML Normal 0. 358-3.740 Free T4 0.90 ng/dL Normal 0.76-1.46 Liver Profile 05/22/2021 [facility] n[facility] [address] [place] [address] [phone] Ast/Sgot 29 U/L Normal 7-37 Alt/SGPT 53 U/L Normal 12-78 Alkaline Phosphatase 131 U/L High 45-117 Bilirubin,Total 0.4 mg/dL Normal 0.2-1.0 Bilirubin,Direct 0.2 mg/dL Normal 0.0-0.2 Total Protein 5.8 GM/DL Low 6.4-8.2 Albumin 2.6 GM/DL Low 3.2-5.2 Albumin/Globulin Ratio 0.8 Normal Basic Metabolic Profile 05/22/2021 [facility] [address] [place] [address] [phone] Glucose, Fasting 94 mg/dL Normal 70-100 Blood [...] mg/dL Low 8.8-10.2 Cardiac Marker Panel 05/22/2021 [facility] enter [address] [place] [address] [phone] CPK Creatine Phosphokinase 58 U/L Normal 39-30 8 CK-MB Value Mass 3.1 NG/ML Normal <3.6 MB/CK Relative Index 5.34 High < Or =4 18 Troponin I 0.14 NG/ML High < 0.10 19 Influenza A/B RSV Covid Amp 05/22/2021 [facility] [address] [place] [address] [phone] Influenza A Amplification NEGATIVE Normal Negati ve 20 Influenza B Amplification NEGATIVE Normal Negative 21 RSV Amplification NEGATIVE Normal Negative 22 Sars Covid-19 Amplification NEGATIVE Normal Negative 23 Laboratory test finding 05/22/2021 [facility] [address] [place] [address] [phone] C Reactive Protein Quantitativ 10.10 mg/dL High 0.00-0.30 Cardiac Marker Panel 05/22/2021 [facility] [address] [place] [address] [phone] CPK Creatine Phosphokinase 55 U/L Normal 39-30 8 CK-MB Value Mass 3.2 NG/ML Normal <3.6 MB/CK Relative Index 5.82 High < Or =4 24 Troponin I 0.13 NG/ML High < 0.10 25 Laboratory test finding 05/07/2021 [facility] [address] [place] [address] [phone] iSTAT Troponin 0.10 NG/ML High 0.00-0.08 Istat Chem8+ Panel 05/07/2021 [facility] [address] [place] [address] [phone] iSTAT HCT 33.0 % Low 38.0-51.0 iSTAT Glucose 89 mg/dL Normal 70-105 iSTAT Sodium 140 mEq/L Normal 136-145 iSTAT Potassium 3.9 mEq/L Normal 3.5-5.1 iSTAT CA++ 4.2 mg/dL Low 4.5-5.3 iSTAT Chloride 100 mEq/L Normal 98-109 iSTAT Co2 24.0 MM/L Normal 23.0-27.0 iSTAT BUN 41 mg/dL High 8-26 iSTAT Creatinine 4.4 mg/dL High 0.6-1.3 CBC With Differential 05/07/2021 [address] [place] [address] [phone] White Blood Count 6.9 10 Normal 4.0-10.0 [...] 36.0-66.0 Lymph % 5.7 % Low 24.0-44.0 [place] % 5.1 % Normal 2.0-8.0 Eos % 3.6 % High 0.0-3.0 Baso % 0.3 % Normal 0.0-1.0 Immature Granulocyte % 2.6 % Normal 0-3.0 Nucleated Red Blood Cell % 0.0 % Normal 0-0 Neutrophils # 5.7 10 Normal 1.5-8.5 Lymph # 0.4 10 Low 1.5-5.0 [place] # 0.4 10 Normal 0.0-0.8 Eos # 0.3 10 Normal 0.0-0.5 Baso # 0.0 10 Normal 0.0-0.2 Laboratory test finding 05/07/[address] [address] [phone] Ammonia < 10 uMOL/L Normal <32 Liver Profile 05/07/2021 [facility] [address] [place] [address] [phone] Ast/Sgot 70 U/L High 7-37 Alt/SGPT 69 U/L Normal 12-78 Alkaline Phosphatase 84 U/L Normal 45-117 Bilirubin,Total 0.5 mg/dL Normal 0.2-1.0 Bilirubin,Direct 0.2 mg/dL Normal 0.0-0.2 Total Protein 5.3 GM/DL Low 6.4-8.2 Albumin 2.4 GM/DL Low 3.2-5.2 Albumin/Globulin Ratio 0.8 Normal Basic Metabolic Profile 05/07/[address] [address] [phone] Glucose, Fasting 90 mg/dL Normal 70-100 Blood [...] mg/dL Low 8.8-10.2 Laboratory test finding 05/07/2021 [facility] [address] [place] [address] [phone] Thyroid Stimulating Hormone 0.505 uIU/ML Normal 0. 358-3.740 Influenza A/B RSV Covid Amp 05/07/2021 [facility] [address] [place] [address] [phone] Influenza A Amplification NEGATIVE Normal Negati ve 27 Influenza B Amplification NEGATIVE Normal Negative 28 RSV Amplification NEGATIVE Normal Negative 29 Sars Covid-19 Amplification NEGATIVE Normal Negative 30 Cardiac Marker Panel 04/27/2021 [facility] [address] [place] [address] [phone] CPK Creatine Phosphokinase 850 U/L High 39-30 8 CK-MB Value Mass 7.7 NG/ML High <3.6 MB/CK Relative Index 0.91 Normal < Or =4 31 Troponin I 1.15 NG/ML High < 0.10 32 Complete Blood Count 04/01/2021 [facility] [address] [place] [address] [phone] White Blood Count 9.4 10 Normal 4.0-10.0 [...] 0.0 % Normal 0-0 Prothrombin Time/Inr 04/01/2021 [facility] [address] [place] [address] [phone] Prothrombin Time 13.7 seconds Normal 12.5-14.3 Inr [...] pathogens. DISCLAIMER: Testing was performed using the [employer] SARS-CoV-2 test. This test was developed and its performance characteristics determined by [employer]. This test has not been FDA cleared [...] Troponin I Reference Interva l for [employer] [place] LOCI: 99th Percentile= 0.00-0.045 ng/ml Risk Stratification: [...] Little GFR Left ESRD GFR <15 on [employer] 8 NOTE: CBC VERIFIED 9 Lab Result [...] LITTLE GFR LEFT ESRD GFR <15 ON [employer] 13 CRITICAL: CBC VERIFIED 14 100-125 mg/dL PRE-DIABET ES/FASTING >126 mg/dL DIABETES/FASTING 15 NOTE: BUN,CREAT VERIFIED 16 CHRONIC KIDNEY DISEASE STAGI NG PER NKF STAGE I & II GFR >= 60 NORMAL TO MILDLY DECREASED STAGE III GFR 30-59 MODERATELY DECREASED STAGE IV GFR 15-29 SEVERELY DECREASED STAGE V GFR <15 VERY LITTLE GFR LEFT ESRD GFR <15 ON [employer] 17 Units are mL/min/1.73 m2 Chronic Kidney Disease Staging per NKF: Stage I & II GFR >=60 Normal to Mildly Decreased Stage III GFR 30-59 Moderately Decreased Stage IV GFR 15-29 Severely Decreased Stage V GFR <15 Very Little GFR Left ESRD GFR <15 on [employer] 18 DIAGNOSIS CRITERIA MMB ng/ml Relative Index (RI) NON-AMI < or = 5 N/A [place] ZONE > 5 < or = 4 AMI > 5 > 4 19 Troponin I Reference Interva l for [email or web address] LOCI: 99th Percentile= 0.00-0.045 ng/ml Risk Stratification: [...] pathogens. DISCLAIMER: Testing was performed using the [employer] SARS-CoV-2 test. This test was developed and its performance characteristics determined by [employer]. This test has not been FDA cleared [...] Troponin I Reference Interva l for [employer] LOCI: 99th Percentile= 0.00-0.045 ng/ml Risk Stratification: [...] Little GFR Left ESRD GFR <15 on [employer] 27 Negative results do not prec lude [...] pathogens. DISCLAIMER: Testing was performed using the [employer] SARS-CoV-2 test. This test was developed and its performance characteristics determined by [employer]. This test has not been FDA cleared [...] Troponin I Reference Interva l for [employer] [place] LOCI: 99th Percentile= 0.00-0.045 ng/ml Risk Stratification: [...] 2.5-3.5 Procedures Date Code Description Status 08/03/2021 71831 Office/Outpatient Established Lo w MDM 20-29 Min Completed 07/03/2021 93264 Office/Outpatient Established Mo d MDM 30-39 Min Completed 06/17/2021 47745 Office/Outpatient Established Mo d MDM 30-39 Min Completed 07/18/2018 [id number] Diabetic Retinal Eye Exam [facility] 01/25/2017 [id number] Diabetic Foot Exam Completed 01/21/2017 [id number] Diabetic Foot Exam Completed 04/14/2006 [id number] Bone Mineral Density Test [facility] Medical Devices Description No Information Available Encounters Type Date Location Provider Dx Diagnosis Office Visit 08/03/2021 2:40p [facility] PRisa Pérez JR PA N18.6 End stage renal disease Z99.2 Dependence on renal dialysis F43.21 Adjustment disorder with dep ressed mood E11.40 Type 2 diabetes mellitus wit h diabetic neuropathy, unsp R26.89 Other abnormalities of gait and mobility Office Visit 07/03/2021 2:00p [facility] P.Tami Burciaga M.D. E78.00 Pure hypercholesterolemia, unspecified E11.40 Type 2 diabetes mellitus wit h diabetic neuropathy, unsp E03.9 Hypothyroidism, unspecified R26.89 Other abnormalities of gait and mobility N18.6 End stage renal disease Z99.2 Dependence on renal dialysis Office Visit 06/17/2021 10:20a [facility] PWILVER Ervin JR R26.89 Other abnormalities of gait and mobility N17.9 Acute kidney failure, unspec ified I12.9 Hypertensive chronic kidney disease w stg 1-4/unsp chr kdny N18.4 Chronic kidney disease, stag e 4 (severe) I73.9 Peripheral vascular disease, unspecified I48.91 Unspecified atrial fibrillat ion I48.92 Unspecified atrial flutter Z79.01 [facility] (current) use of a nticoagulants E11.40 Type [...] atrial flutter WILVER Nava JR 06/17/2021 Z79.01 [employer] (current) use of antic oagulants WILVER Nunez JR 06/17/2021 E11.40 Type 2 diabetes kaye itus with diabetic neuropathy, unspecified WILVER Nunez JR 06/17/2021 I25.10 Atherosclerotic heart disease of [place] coronary artery with WILVER Nunez JR 06/17/2021 E03.9 Hypothyroidism, unspecified Robe WILVER Ni JR 06/17/2021 D64.9 Anemia, unspecified WILVER Constantino JR 06/17/2021 J44.9 Chronic obstructive pulmonary di sease, unspecified WILVER Nunez JR Plan of Treatment Future Appointment(s):* 11/09/2021 1:00 pm - Lab Schedule at [facility] * 11/11/2021 1:00 pm - Eduardo Burciaga M.D. at [facility] Functional Status Description No Information Available Mental Status Description No Information Available Referrals Description No Information Available
--- OUTSIDE RECORDS SUMMARY | 2021-09-14 16:19 | CCD ---
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 Name Role Phone Manasa Sandoval MD Unavailable [...] Unavailable Unavailable Manasa Sandoval MD Unavailable Unavailable White F Eduardo Unavailable Unavailable White F Eduardo MD Unavailable [...] Eduardo MD Unavailable Unavailable White F Eduardo Unavailable Unavailable White F Eduardo Unavailable Unavailable White F Eduardo Unavailable Unavailable White F Eduardo Unavailable Unavailable White F Eduardo MD Unavailable Unavailable White F Eduardo Unavailable Unavailable White F Eduardo Unavailable Unavailable White F Eduardo MD Unavailable Unavailable White F Eduardo Unavailable Unavailable Lori F Eduardo CARRERA Unavailable Unavailable Lori F Eduardo CARRERA Unavailable Unavailable White F Eduardo CARRERA Unavailable Unavailable White F Eduardo MD Unavailable Unavailable White F Eduardo Unavailable Unavailable White F Eduardo Unavailable Unavailable Lori F Eduardo Unavailable Unavailable Lori F Eduardo CARRERA Unavailable Unavailable KIA DUENAS MD Unavailable Unavailable KIA DUENAS MD Unavailable Unavailable KIA DUENAS MD Unavailable Unavailable KIA DUENAS MD Unavailable Unavailable YULISSAKIA MD Unavailable Unavailable YULISSAKIA MD Unavailable Unavailable [...] MD Unavailable Unavailable YULISSAKIA MD Unavailable Unavailable YULISSA, KIA CARRERA Unavailable [...] A LEATHA MD Unavailable Unavailable SEMEL, A LEAHTA MD Unavailable Unavailable SEMEL, A LEATHA MD [...] is protected by Article 27-F of the [place] Public Health law. If you continue you may have access to information: Regarding HIV / AIDS; Provided by facilities licensed or operated by the [facility] Office of Mental Health; or Provided by the [facility] Office for People With Developmental Disabilities. If such information is present, then the following [facility] mandated warning applies: This information has been [...] law may result in a fine or custodial sentence or both. A general authorization for the release of medical or other information is NOT sufficient authorization for further disc losure. Family History Family Member Name Family Member Gender Family Member Status Date o f Status Description Data Source(s) Unknown Unknown Problem [facility] Unknown Unknown Problem [facility] ([facility] Unknown Male Problem [facility] ([facility]) Unknown Male Problem [facility] ([facility] () Encounters Encounter Providers Location Date Indications Data Source(s ) Outpatient Attender: KIA DUENAS MD [email or web address] 12:00:00 AM EDT - 08/28/2021 02:45:09 PM EDT [facility] Outpatient Attender: IVAN Souza 0 08/03/2021 02:40:00 PM EDT [facility] ([facility] ) Outpatient Attender: Eduardo Souza 07/03 02:00:00 PM EDT [facility] ([facility] ) Outpatient Attender: IVAN Souza 0 06/17/2021 10:20:00 AM EDT [facility] ([facility] ) Outpatient Attender: TERI FERRIS [facility] Office 12/22 01:45:00 PM EST [facility] ([facility] Outpatient Attender: LEATHA AN MD Main Office 09/09/2020 01:00:0 0 PM EDT [facility] ([facility]) [facility] [address] [place] [phone] 08/15/2020 12:00:00 AM EDT eCW1 ([facility]) Outpatient Attender: Eduardo Souza 08/13 10:30:00 AM EDT [facility] ([facility] ) Immunizations Vaccine Date Status Description Data Source(s) COVID-19 VACCINE Moderna 02/17/2021 12:00:00 AM EDT completed [facility] Vaccine Series Complete: YESThis Data wa s Submitted to [facility]. COVID-19 VACCINE Moderna 01/20/2021 12:00:00 AM EST completed [facility] Vaccine Series Complete: NOThis Data was Submitted to [facility] Via [facility]. Influenza, injectable, MDCK, preservative free, gage valent 08/13/2020 10:49:00 AM EDT completed [facility]) Medications Medication Brand Name Start Date Product Form Dose Route Admi nistrative Instructions Pharmacy Instructions Status Indications Reaction Description Data Source(s) 25 mg 09/12/2021 12:00:00 AM EDT tablet 30 TAKE ONE-HALF TABLET BY MOUTH TWICE A DAY TAKE ONE-HALF TABLET BY MOUTH TWICE A DAY SOLD: 09/12/2021 [facility] 25 mg 09/12/2021 12:00:00 AM EDT tablet 60 TAKE TWO TABLETS BY MOUTH NIGHTLY TAKE TWO TABLETS BY MOUTH NIGHTLY SOLD: 09/12/2021 [facility] 0.4 mg 09/12/2021 12:00:00 AM EDT capsule 90 TAKE ONE CAPSULE BY MOUTH EVERY DAY TAKE ONE CAPSULE BY MOUTH EVERY DAY SOLD: 09/12/2021 [facility] 100 mg 09/03/2021 12:00:00 AM EDT capsule 14 TAKE ONE CAPSULE BY MOUTH TWICE A DAY FOR 7 DAYS TAKE ONE CAPSULE BY MOUTH TWICE A DAY FOR 7 DAYS SOLD: 09/08/2021 [facility] 2.5 mg 08/29/2021 12:00:00 AM EDT tablet 60 1TAB.BY MOUTH 2X/DAY 1ST DOSE IN EARLY A.M.WHILE IN BED & 2ND IN AFTERNOON DAILY 1TAB.BY MOUTH 2X/DAY 1ST DOSE IN EARLY A.M.WHILE IN BED & 2ND IN AFTERNOON DAILY SOLD: 09/02/2021 [facility] midodrine hydrochloride 2.5 MG Oral Tablet midodrine ( PROAMATINE) 2.5 MG tablet midodrine (PROAMATINE) 2.5 MG tablet 08/28/2021 12:00:00 AM EDT 2.5 m g Oral active Take 1 tablet (2 .5 mg total) by mouth 2 (two) times a day 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 [facility] 25 mg 08/25/2021 12:00:00 AM EDT tablet 30 TAKE ONE TABLET BY MOUTH EVERY NIGHT TAKE ONE TABLET BY MOUTH EVERY NIGHT SOLD: 09/02/2021 [facility] Sertraline 25 MG Oral Tablet Sertraline HCL 08/24/2021 12:00:00 AM EDT ORAL active [facility] ([facility]) benzonatate 100 MG Oral Capsule BENZONATATE 08/13/2021 [...] SHORTNESS OF BREATH/WHEEZING SOLD: 08/13/2021 [facility] albuterol (PROVENTIL HFA;VENTOLIN HFA) 108 (90 Base) M CG/ACT inhaler 5176-6933-03 08/13/2021 12:00:00 AM EDT activ e INHALE 4 PUFFS EVERY 4 HOURS NEEDED FOR SHORTNESS OF BREATH/WHEEZING [facility] Acetaminophen 325 MG Oral Tablet acetaminophen (TYLENO L) 325 MG tablet acetaminophen (TYLENOL) 325 MG tablet 08/13/2021 12:00:00 AM EDT active TAKE 2 TABLETS BY MO UT EVERY 4 HOURS NEEDED FOR MILD PAIN OR TEMP OVER 101 MAX OF 9 TABLETS PER DAY [facility] atorvastatin 20 MG Oral Tablet ATORVASTATIN CALCIUM 07/14/2021 1 2:00:00 AM EDT tablet 90 TAKE ONE TABLET BY MOUTH EVERY D AY TAKE ONE TABLET BY MOUTH EVERY DAY SOLD: 07/18/2021 [facility] 2.5 mg 07/14/2021 12:00:00 AM EDT tablet 60 TAKE ONE TABLET BY MOUTH TWICE A DAY TAKE ONE TABLET BY MOUTH TWICE A DAY SOLD: 07/18/2021 [facility] Finasteride 5 MG Oral Tablet FINASTERIDE 07/14/2021 12:00:00 AM EDT ta blet 90 TAKE ONE TABLET BY MOUTH EVERY DAY TAKE ONE TABLET BY MOUTH EVERY DAY SOLD: 07/18/2021 [facility] 88 mcg 07/14/2021 12:00:00 AM EDT tablet 90 TAKE ONE TABLET BY MOUTH EVERY DAY TAKE ONE TABLET BY MOUTH EVERY DAY SOLD: 07/18/2021 [facility] 2.5 mg [...] 3 DAYS AND STOP SOLD: 07/17/2021 [facility] 1 mg 07/14/2021 12:00:00 AM EDT tablet 90 TAKE ONE TABLET BY MOUTH EVERY DAY TAKE ONE TABLET BY MOUTH EVERY DAY SOLD: 07/18/2021 [facility] Finasteride 5 MG Oral Tablet finasteride (PROSCAR) 5 M G tablet finasteride (PROSCAR) 5 MG tablet 07/14/2021 12:00:00 AM EDT 5 mg Oral active Take 5 mg by mouth daily [facility] 1,250 mcg (50,000 unit) 07/13/2021 12:00:00 AM EDT capsule 8 TAKE 1 CAPSULE BY MOUTH ONCE WEEKLY FOR 8 WEEKS TAKE 1 CAPSULE BY MOUTH ONCE WEEKLY FOR 8 WEEKS SOLD: 07/13/2021 [facility] Ergocalciferol 08692 UNT Oral Capsule er gocalciferol (Drisdol) 1.25 MG (86934 UT) capsule ergocalciferol (Drisdol) 1.25 MG (31235 UT) capsule 12:00:00 AM EDT Oral active Take by mouth [facility] Levothyroxine Sodium 0.088 MG Oral Table t levothyroxine (SYNTHROID, LEVOTHROID) 88 MCG tablet levothyroxine (SYNTHROID, LEVOTHROID) 88 MCG tablet 12:00:00 AM EDT 1 {tbl} Oral active Take 1 tablet by mouth daily [facility] Vitamin B 12 0.5 MG Oral Tablet cyanocobalamin 500 MCG tablet cyanocobalamin 500 MCG tablet 06/18/2021 12:00:00 AM EDT 2 {tbl} Oral active Take 2 tablets by mouth [facility] gabapentin 100 MG Oral Capsule gabapentin (NEURONTIN) 100 MG capsule gabapentin (NEURONTIN) 100 MG capsule 06/18/2021 12:00:00 AM EDT Oral active Take by mouth [facility] Folic Acid 1 MG Oral Tablet folic acid (FOLVITE) 1 MG tablet folic acid (FOLVITE) 1 MG tablet 06/18/2021 12:00:00 AM EDT 1 {tbl} Oral active Take 1 tablet by mouth [facility] apixaban 2.5 MG Oral Tablet apixaban (Eliquis) 2.5 MG TABS tablet apixaban (Eliquis) 2.5 MG TABS tablet 06/18/2021 12:00:00 AM EDT 1 {tbl} Oral active Take 1 tablet by mouth [facility] atorvastatin 20 MG Oral Tablet atorvastatin (LIPITOR) 20 MG tablet atorvastatin (LIPITOR) 20 MG tablet 06/18/2021 12:00:00 AM EDT 1 {tbl} Oral active Take 1 tablet by mouth [facility] apixaban 2.5 MG Oral Tablet [Eliquis] Eliquis 06/17/2021 12:00:00 AM EDT ORAL active [facility] ([facility]) atorvastatin 20 MG Oral Tablet Atorvastatin Calcium 06/17/2021 1 2:00:00 AM EDT ORAL active [facility] ( [facility]) Prednisone 10 MG Oral Tablet Prednisone 06/17/2021 12:00:00 AM EDT ORAL completed [facility] ([facility]) Metoprolol Tartrate 25 MG Oral Tablet Metoprolol Tartrate 12:00:00 AM EDT ORAL active [facility] ([facility]) ramelteon 8 MG Oral Tablet Ramelteon 06/17/2021 12:00:00 AM EDT active [facility] ([facility]) Thiamine 100 MG Oral Tablet Vitamin B-1 06/17/2021 12:00:00 AM EDT ORAL active [facility] ([facility]) Vitamin B 12 1 MG Oral Tablet Vitamin B-12 06/17/2021 12:00:00 AM EDT ORAL active [facility] ([facility]) gabapentin 100 MG Oral Capsule Gabapentin 06/17/2021 12:00:00 AM EDT ORAL active [facility] ([facility]) Folic Acid 1 MG Oral Tablet Folic Acid 06/17/2021 12:00:00 AM EDT ORAL active [facility] ([facility]) 2.5 mg 06/12/2021 12:00:00 AM EDT tablet [...] EVERY D AY AT BEDTIME SOLD: 06/17/2021 [facility] 500 mcg 06/12/2021 12:00:00 AM EDT tablet 60 TAKE 2 TABLETS [1,000MG] BY MOUTH DAILY TAKE 2 TABLETS [1,000MG] BY MOUTH DAILY SOLD: 06/17/2021 [facility] 25 mg 06/12/2021 12:00:00 AM EDT tablet 30 TAKE 1/2 TABLET BY MOUTH TWO TIMES A DAY TAKE 1/2 TABLET BY MOUTH TWO TIMES A DAY SOLD: 06/17/2021 [facility] 10 mg 06/12/2021 12:00:00 AM EDT tablet 30 TAKE 1 TABLET [10MG] BY MOUTH DAILY TAKE 1 TABLET [10MG] BY MOUTH DAILY SOLD: 06/17/2021 [facility] 1 mg 06/12/2021 12:00:00 AM EDT tablet 30 TAKE ONE TABLET BY MOUTH EVERY DAY TAKE ONE TABLET BY MOUTH EVERY DAY SOLD: 06/17/2021 [facility] Metoprolol Tartrate 25 MG Oral Tablet me toprolol tartrate (LOPRESSOR) 25 MG tablet metoprolol tartrate (LOPRESSOR) 25 MG tablet 06/12/2021 12:0 0:00 AM EDT 12.5 mg Oral active Take 12.5 mg by mouth 2 (two) times a day [facility] 88 mcg 06/12/2021 12:00:00 AM EDT tablet 30 TAKE ONE TABLET BY MOUTH EVERY DAY AT 6 IN THE MORNING TAKE ONE TABLET BY MOUTH EVERY DAY AT 6 IN THE MORNING SOLD: 06/17/2021 [facility] 100 mg 06/12/2021 12:00:00 AM EDT tablet 30 TAKE 1 TABLET [100MG] BY MOUTH DAILY TAKE 1 TABLET [100MG] BY MOUTH DAILY SOLD: 06/17/2021 [facility] Finasteride 5 MG Oral Tablet FINASTERIDE 06/12/2021 [...] WEEK (TUESDAY/ TUESDAY/ TUESDAY) SOLD: 04/24/2021 [facility] Sodium polystyrene sulfonate 250 MG/ML Oral Suspension [SPS] 15-20 gram/60 mL SODIUM POLYSTYRENE SULFON/SORB 04/22/2021 12:00:00 AM EDT suspension 120 TAKE 60ML BY MOUTH ONCE DAILY FOR 2 DAYS TAKE 60ML BY MOUTH ONCE DAILY FOR 2 DAYS SOLD: 04/22/2021 [facility] pantoprazole 40 MG Delayed Release Oral Tablet [...] BY MOUTH DAILY SOLD: 04/19/2021 [facility] 24 HR metoprolol succinate 100 MG Extend ed Release Oral Tablet metoprolol succinate (TOPROL-XL) 100 MG 24 hr tablet metoprolol succinate (TOPROL-XL) 100 MG 24 hr tablet 05/19/2020 12:00:00 AM EDT ab orted TAKE ONE TABLET BY MOUTH DAILY [facility] Lovastatin 40 MG Oral Tablet lovastatin (MEVACOR) 40 M G tablet lovastatin (MEVACOR) 40 MG tablet 07/28/2018 12:00:00 AM EDT 80 mg Oral aborted Take 80 mg by mouth nightly [facility] rivaroxaban 15 MG Oral Tablet rivaroxaban (XARELTO) 15 MG TABS rivaroxaban (XARELTO) 15 MG TABS 05/31/2014 12:00:00 AM EDT 15 mg aborted 15 mg daily [facility] Levothyroxine Sodium 0.088 MG Oral Table t levothyroxine (SYNTHROID, LEVOTHROID) 88 MCG tablet levothyroxine (SYNTHROID, LEVOTHROID) 88 MCG tablet 100 ug Oral aborted Take 100 mcg by mout h daily [facility] Insurance Providers Payer name Policy type / Coverage type Policy ID Covered green party ID Covered green party's relationship to delcid Policy Delcid Plan Information [facility] [id number] [place]2 [id number] [facility] [id number] MEDICARE [id number] SP [id number] A MEDICARE [id number] MEDICARE [id number] SP [id number] A MEDICARE [id number] [facility] [id number] R [id number] [facility] [id number] [facility] [id number] r ([facility]) Commercial [id number] Family Dependent [id number] [facility] Health Maintenance Organization (HMO) [id number] Family Dependent [id number] Commercial [id number] [facility] B [id number] Self [id number] ANSI-Commercial [id number] MEDICARE [id number] A [facility] B [id number] Self [id number] ANSI-Commercial [id number] [facility] [id number] Self [id number] [employer] (Old) Commercial [id number] Family Dependent [id number] [employer] Commercial [id number] Family Dependent [id number] [facility] B [id number] Self [id number] [facility] [employer] Commercial [id number] Family Dependent [id number] [facility] Part B [id number] Self [id number] [employer] Commercial [id number] Family Dependent [id number] [employer] Commercial [id number] Family Dependent 91 0 MEDICARE [id number] SP [id number] [facility] [id number] WI2 [id number] MEDICARE [id number] SP [id number] [facility] [id number] WI2 [id number] [employer] Medigap Part B [id number] Self [id number] U[employer] Commercial [id number] Family Dependent [id number] [employer] Medigap Part B [id number] Self [id number] [employer] Med[employer] Part B 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, unspe cified Disorders of magnesium metabolism, unspecified [id number] 05/06/2021 12:00:00 AM EDT [facility] N18.9 Anemia in chronic kidney disease Anemia in chron ic kidney disease [id number] 05/06/2021 12:00:00 AM EDT [facility] E11.42 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 etes mellitus 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etes mellitus Problem 01/05/2021 12:00: 00 AM EST [facility] ([facility] M79.671 Pain in limb Pain in limb Problem 01/05/2021 12:00:00 A M EST [facility] ([facility] [id number] Pressure ulcer of right foot stage 1 Pre ssure ulcer of right foot stage 1 Problem 01/05/2021 12:00:00 AM EST [facility] ([facility] [id number] 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 Problem 01/05/2021 12:00:00 AM EST [facility] Surgeries/Procedures Procedure Description Date Indications Data Source(s) POCT AMB EKG <td>POCT AMB EKG</td><td>Rou liam</td><td>08/28/2021 5:58 PM EDT</td><td> Atrial fibrillation Benign essential hypertension</td><td> </td> 08/28/2021 05:58:00 PM EDT Benign essential hypertensionAtrial fibrillation [facility] Benign essential hypertension Atrial fibrillation BLOOD COUNT COMPLETE AUTO&AUTO DIFRNTL WBC COUNT <td>C BC AND DIFFERENTIAL</td><td>Routine</td><td>08/13/2021</td><td></td><td> </td> 08/13/2021 12:00:00 AM EDT [facility] BASIC METABOLIC PANEL CALCIUM TOTAL <td>BASIC METABOLI C PANEL</td><td>Routine</td><td>08/13/2021</td><td></td><td> </td> 08/13/2021 12:00:00 AM EDT [facility] OFFICE OUTPATIENT VISIT 15 MINUTES 08/03/2021 12:00:00 AM EDT [facility] ([facility]) DEBRIDEMENT SUBCUTANEOUS TISSUE 20 SQ CM/< 08/03/2021 12:00:00 AM EDT [facility] ([facility] DEBRIDEMENT NAIL ANY METHOD 08/03/2021 12:00:00 AM EDT [facility] ([facility] OFFICE OUTPATIENT VISIT 25 MINUTES 07/03/2021 12:00:00 AM EDT [facility] ([facility]) OFFICE OUTPATIENT VISIT 25 MINUTES 06/17/2021 12:00:00 AM EDT [facility] ([facility]) DEBRIDEMENT NAIL ANY METHOD 01/02/2021 12:00:00 AM EST [facility] ([facility] DEBRIDEMENT OPEN WOUND 20 SQ CM/< 01/02/2021 12:00:00 AM EST [facility] Results ID Date Data Source [id number] 09/03/2021 01:45:00 PM EDT [facility] ([facility]) Name Value Range Interpretation Code Description Data Shameka rce(s) Supporting Document(s) Influenza A Amplification Laboratory test result [facility] Negative results do not preclude influen za or RSV virus infection and should not be used as the sole basis for treatment or other patient management decisions. Influenza B Amplification Laboratory test result [facility] ([facility]) Negative results do not preclude influen za or RSV virus infection and should not be used as the sole basis for treatment or other patient management decisions. Laboratory test finding (navigational concept) Laboratory test result [facility] ([facility]) A false negative result may occur [...] pathogens. DISCLAIMER: Testing was performed using the [employer] SARS-CoV-2 test. This test was developed and its performance characteristics determined by [employer]. This test has not been FDA cleared [...] the authorization is terminated or revoked sooner. RSV Amplification Laboratory test result [facility] ([facility]) Negative results do not preclude influen za or RSV virus infection and should not be used as the sole basis for treatment or other patient management decisions. ID Date Data Source [id number] 09/03/2021 01:45:00 PM EDT [facility] Name Value Range Interpretation Code Description Data Shameka rce(s) Supporting Document(s) SARS coronavirus 2 RNA [Presence] in Res piratory specimen by CHRISTOPHER with probe detection NEGATIVE [facility] This lab was ordered by [facility] a nd reported by [facility]. ID Date Data Source [id number] 09/03/2021 11:39:00 AM EDT [facility] ([facility]) Name Value Range Interpretation Code Description Data Shameka rce(s) Supporting Document(s) Glucose, Fasting 93 mg/dL 70-100 [facility] ([facility]) Blood Urea Nitrogen 20 mg/dL 7-18 [facility] ([facility]) Glomerular Filtration Rate 15.9 [facility] ([facility]) <content>Units are mL/min/1.73 m2</content>
<content></content>
<content>Chronic Kidney Disease Staging per NKF:</content>
<content></content>
<content>Stage I & II GFR >=60 Normal to Mildly Decreased</content>
<content>Stage III GFR 30- 59 Moderately Decreased</content>
<content>Stage IV GFR 15-29 Severely Decreased</content>
<content>Stage V GFR <15 Very Little GFR Left</content>
<content>ESRD GFR <15 on INFORMATION WRITER</content>
<content></content> Creatinine For GFR 3.93 mg/dL 0.70-1.30 [facility] ([facility]) Sodium Level 135 meq/L 136-145 [facility] ([facility]) Chloride Level 96 meq/L 98-107 [facility] ([facility]) Potassium Serum 3.0 meq/L 3.5-5.1 [facility] ([facility]) Carbon Dioxide Level 32 meq/L 21-32 [facility] ([facility]) Anion Gap 7 meq/L 8-16 [facility] Calcium Level 8.4 mg/dL 8.8-10.2 [facility] ([facility]) Ast/Sgot 20 U/L 7-37 [facility] Alkaline Phosphatase 108 U/L 45-117 [facility] Bilirubin,Total 1.0 mg/dL 0.2-1.0 [facility] ([facility]) Alt/SGPT 12 U/L 12-78 [facility] ([facility]) Total Protein 6.5 GM/DL 6.4-8.2 [facility] ([facility]) Albumin 2.5 GM/DL 3.2-5.2 [facility] ([facility]) Albumin/Globulin Ratio 0.6 [facility] ([facility]) ID Date Data Source [id number] 09/03/2021 11:39:00 AM EDT [facility] ([facility]) Name Value Range Interpretation Code Description Data Shameka rce(s) Supporting Document(s) CPK Creatine Phosphokinase 40 U/L 39-308 [facility] ([facility]) CK-MB Value Mass 1.3 ng/mL [facility] ([facility]) Troponin I 0.03 ng/mL [facility] ([facility]) <content>Troponin I Reference Interval f or [employer]ens [place] LOCI:</content>
<content></content>
<content>99th Percentile= 0.00-0.045 ng/ml</content>
<content></content>
<content>Risk Stratification:</content>
<content><= 0.10 ng/ml Decreased Risk for Adverse Clinical</content>
<content>Events.</content>
<content>0.10-1.50 ng/ml Increased Risk for Adverse Clinical</content>
<content>Events. Evaluation of additional</content>
<content>criterion and/or repeat testing in 2-6</content>
<content>hours is suggested to rule out myocardial</content>
<content>damage.</content>
<content>>= 1.50 ng/ml Indicative of Myocardial Injury.</content>
<content></content> MB/CK Relative Index 3.25 [facility] <content>DIAGNOSIS CRITERIA</content>
<content>MMB ng/ml Relative Index (RI)</content>
<content>NON-AMI < or = 5 N/A</content>
<content>S[place] ZONE > 5 < or = 4</content>
<content>AMI > 5 > 4</content>
<content></content> ID Date Data Source [id number] 09/03/2021 11:39:00 AM EDT [facility] ([facility]) Name Value Range Interpretation Code Description Data Shameka rce(s) Supporting Document(s) Thyrotropin [Units/volume] in Serum or Plasma by Detec tion limit <= 0.05 mIU/L 0.240 uIU/ML 0.358-3.740 [facility] ([facility] ) ID Date Data Source [id number] 09/03/2021 11:39:00 AM EDT [facility] ([facility]) Name Value Range Interpretation Code Description Data Shameka rce(s) Supporting Document(s) White Blood Count 8.0 10 4.0-10.0 [facility] ([facility]) Hemoglobin 10.2 g/dL 13.5-17.5 [facility] ([facility]) Red Blood Count 3.28 10 4.30-6.10 [facility] ([facility]) Mean Corpuscular Hemoglobin 31.1 pg 27.0-33.0 ME DENT ([facility]) Mean Corpuscular Volume 94.2 fl 80.0-96.0 [facility] ([facility]) Hematocrit 30.9 % 42.0-52.0 [facility] ([facility]) Mean Corpuscular HGB Conc 33.0 g/dL 32.0-36.5 MEDE NT ([facility]) Red Cell Distribution Width 14.0 % 11.5-14.5 [place] [facility] ([facility]) Platelet Count, Automated 240 10 150-450 [facility] ([facility]) Nucleated Red Blood Cell % 0.0 % 0-0 [facility] ([facility]) ID Date Data Source [id number] 08/12/2021 03:35:00 PM EDT [facility] Name Value Range Interpretation Code Description Data Shameka rce(s) Supporting Document(s) Respiratory pathogens identified [Type] in Nasopharynx by Probe and target amplification method SARS-CoV-2 (COVID 19) [facility] This lab was ordered by [facility] a nd reported by [facility]. ID Date Data Source [id number] 07/01/2021 11:21:00 AM EDT [facility]) Name Value Range Interpretation Code Description Data Shameka rce(s) Supporting Document(s) Thyrotropin [Units/volume] in Serum or Plasma by Detec tion limit <= 0.05 mIU/L 0.88 uIU/mL 0.36-3.74 [facility] ([facility] ) ID Date Data Source [id number] 07/01/2021 11:21:00 AM EDT [facility] ([facility]) Name Value Range Interpretation Code Description Data Shameka rce(s) Supporting Document(s) Cholesterol [Mass/volume] in Serum or Plasma 184 mg/dL 131-200 [facility] ([facility]) Triglyceride [Mass/volume] in Serum or Plasma 146 mg/dL 30-150 [facility] ([facility]) Cholesterol in HDL [Mass/volume] in Serum or Plasma 80 mg/dL 35-60 [facility] ([facility]) Cholesterol in LDL [Mass/volume] in Serum or Plasma by calcu lation 75 CALC 50-159 [facility] ([facility]) ID Date Data Source [id number] 07/01/2021 11:21:00 AM EDT [facility] ([facility]) Name Value Range Interpretation Code Description Data Shameka rce(s) Supporting Document(s) Glucose [Mass/volume] in Serum or Plasma 104 mg/dL 74-99 [facility] ([facility]) 100-125 mg/dL PRE-DIABETES/FASTING >126 mg/dL DIABETES/FASTING Creatinine 2.8 mg/dL 0.6-1.3 [facility] ([facility]) Urea nitrogen [Mass/volume] in Serum or Plasma 22 mg/dL 7-18 [facility] ([facility]) NOTE: BUN,CREAT VERIFIED Potassium [Moles/volume] in Serum or Plasma 3.6 meq/L 3.5-5.1 [facility] ([facility]) Sodium [Moles/volume] in Serum or Plasma 136 meq/L 136-145 [facility] ([facility]) Chloride [Moles/volume] in Serum or Plasma 96 meq/L 98-107 [facility] ([facility]) Carbon dioxide, total [Moles/volume] in Serum or Plasma 34 meq/L 21 -32 [facility] ([facility]) Calcium [Mass/volume] in Serum or Plasma 9.1 mg/dL 8.5-10.1 [facility] ([facility]) Total Bilirubin 0.5 mg/dL 0.2-1.0 [facility] ([facility]) Alkaline phosphatase isoenzyme [Units/volume] in Serum or Pl asma 98 mg/dL 46-116 [facility] ([facility]) Aspartate aminotransferase [Enzymatic activity/volume] in Serum or Plasma 28 U/L 15-37 [facility] ([facility] ) Alanine aminotransferase [Enzymatic activity/volume] in Seru m or Plasma 25 U/L 12-78 [facility] Albumin [Mass/volume] in Serum or Plasma 3.1 g/dL 3.4-5.0 [facility] ([facility]) A/G Ratio 0.79 CALC 1.00-1.90 [facility]) Proteinase 3 Ab [Units/volume] in Serum 7.0 g/dL 6.4-8.2 [facility] Glomerular filtration rate/1.73 sq M pre dicted among non-blacks [Volume Rate/Area] in Serum or Plasma by Creatinine-based formula (MDRD) 22 mL/min [facility] Glomerular filtration rate/1.73 sq M pre dicted among blacks [Volume Rate/Area] in Serum or Plasma by Creatinine-based formula (MDRD) 27 mL/min [facility] <content>CHRONIC KIDNEY DISEASE STAGING PER NKF</content>
<content></content>
<content>STAGE I & II GFR >= 60 NORMAL TO MILDLY DECREASED</content>
<content>STAGE III GFR 30-59 MODERATELY DECREASED</content>
<content>STAGE IV GFR 15-29 SEVERELY DECREASED</content>
<content>STAGE V GFR <15 VERY LITTLE GFR LEFT</content>
<content>ESRD GFR <15 ON INFORMATION WRITER</content>
<content></content> ID Date Data Source [id number] 07/01/2021 11:21:[address] [facility]) Name Value Range Interpretation Code Description Data Shameka rce(s) Supporting Document(s) Hemoglobin A1c/Hemoglobin.total in Blood 5.5 % [facility] ([facility]) Lab Result Notes: Pre-Diabetes 5.7 - 6.4 % Diabetes = or > 6.5% Glucose mean value [Mass/volume] in Blood Estimated fr om glycated hemoglobin 111 mg/dL 60-110 [facility] ([facility] ) ID Date Data Source [id number] 07/01/2021 11:21:[address] [facility]) Name Value Range Interpretation Code Description Data Shameka rce(s) Supporting Document(s) Leukocytes [#/volume] in Blood by Automated count 13.6 x10*3/UL 4.1-1 0.9 [facility] ([facility]) NOTE: CBC VERIFIED Erythrocytes [#/volume] in Blood by Automated count 4.09 x10*6/UL 4.2 0-6.30 [facility] ([facility]) Hemoglobin [Mass/volume] in Blood 12.9 g/dL 12.0-18.0 [facility] ([facility]) MCV 93.2 fL 80.0-97.0 [facility] Hematocrit [Volume Fraction] of Blood by Automated count 38.1 % 3 7.0-51.0 [facility] ([facility]) MCHC 33.8 g/dL 31.0-38.0 [facility] Erythrocyte distribution width [Ratio] by Automated count 14.6 % 11.6-13.7 [facility] ([facility]) MCH 31.5 pg 26.0-32.0 [facility] MPV 8.0 FL 7.8-11.0 [facility]) Platelets [#/volume] in Blood by Automated count 282 x10*3/UL 140-440 [facility] ([facility]) Mid % 2.3 % 1.7-9.3 [facility] Neut % 89.4 % 37.0-92.0 [facility] Lymph % 8.3 % 10.0-58.5 [facility] Mid # 0.3 x10*3/UL 0.1-0.6 [facility] ([facility]) Lymph # 1.1 x10*3/UL 0.6-4.1 [facility] ([facility]) Neut # 12.2 x10*3/UL 2.0-7.8 [facility] ([facility]) ID Date Data Source [id number] 07/01/2021 11:21:00 AM EDT [facility] ([facility]) Name Value Range Interpretation Code Description Data Shameka rce(s) Supporting Document(s) Hemoglobin A1c/Hemoglobin.total in Blood Laboratory test result [facility] ([facility]) ID Date Data Source [id number] 06/17/2021 11:03:00 AM EDT [facility]) Name Value Range Interpretation Code Description Data Shameka rce(s) Supporting Document(s) Thyrotropin [Units/volume] in Serum or Plasma by Detec tion limit <= 0.05 mIU/L 2.97 uIU/mL 0.36-3.74 [facility] ([facility] ) ID Date Data Source [id number] 06/17/2021 11:03:00 AM EDT [facility] ([facility]) Name Value Range Interpretation Code Description Data Shameka rce(s) Supporting Document(s) Glucose [Mass/volume] in Serum or Plasma 149 mg/dL 74-99 [facility] ([facility]) 100-125 mg/dL PRE-DIABETES/FASTING >126 mg/dL DIABETES/FASTING Urea nitrogen [Mass/volume] in Serum or Plasma 27 mg/dL 7-18 [facility] ([facility]) NOTE: BUN,CREAT VERIFIED Creatinine 3.1 mg/dL 0.6-1.3 [facility] Chloride [Moles/volume] in Serum or Plasma 102 meq/L 98-107 [facility] ([facility]) Potassium [Moles/volume] in Serum or Plasma 3.8 meq/L 3.5-5.1 [facility] ([facility]) Sodium [Moles/volume] in Serum or Plasma 140 meq/L 136-145 [facility] ([facility]) Carbon dioxide, total [Moles/volume] in Serum or Plasma 33 meq/L 21 -32 [facility] ([facility]) Calcium [Mass/volume] in Serum or Plasma 9.1 mg/dL 8.5-10.1 [facility] ([facility]) Glomerular filtration rate/1.73 sq M pre dicted among non-blacks [Volume Rate/Area] in Serum or Plasma by Creatinine-based formula (MDRD) 20 mL/min [facility] ([facility]) Glomerular filtration rate/1.73 sq M pre dicted among blacks [Volume Rate/Area] in Serum or Plasma by Creatinine-based formula (MDRD) 24 mL/min [facility] ([facility]) <content>CHRONIC KIDNEY DISEASE STAGING PER NKF</content>
<content></content>
<content>STAGE I & II GFR >= 60 NORMAL TO MILDLY DECREASED</content>
<content>STAGE III GFR 30-59 MODERATELY DECREASED</content>
<content>STAGE IV GFR 15-29 SEVERELY DECREASED</content>
<content>STAGE V GFR <15 VERY LITTLE GFR LEFT</content>
<content>ESRD GFR <15 ON INFORMATION WRITER</content>
<content></content> ID Date Data Source [id number] 06/17/2021 11:03:00 AM EDT [facility] ([facility]) Name Value Range Interpretation Code Description Data Shameka rce(s) Supporting Document(s) Leukocytes [#/volume] in Blood by Automated count 11.2 x10*3/UL 4.1-1 0.9 [facility] ([facility]) CRITICAL: CBC VERIFIED Hematocrit [Volume Fraction] of Blood by Automated count 38.2 % 3 7.0-51.0 [facility] ([facility]) Erythrocytes [#/volume] in Blood by Automated count 4.02 x10*6/UL 4.2 0-6.30 [facility] ([facility]) Hemoglobin [Mass/volume] in Blood 12.6 g/dL 12.0-18.0 [facility]) MCH 31.5 pg 26.0-32.0 [facility]) MCV 95.0 fL 80.0-97.0 [facility] MCHC 33.1 g/dL 31.0-38.0 [facility] Platelets [#/volume] in Blood by Automated count 183 x10*3/UL 140-440 [facility] ([facility]) MPV 8.1 FL 7.8-11.0 [facility]) Erythrocyte distribution width [Ratio] by Automated count 16.3 % 11.6-13.7 [facility] ([facility]) Mid % 2.7 % 1.7-9.3 [facility]) Lymph % 7.0 % 10.0-58.5 [facility] Neut % 90.3 % 37.0-92.0 [facility] Lymph # 0.7 x10*3/UL 0.6-4.1 [facility] ([facility]) Mid # 0.4 x10*3/UL 0.1-0.6 [facility] ([facility]) Neut # 10.1 x10*3/UL 2.0-7.8 [facility] ([facility]) ID Date Data Source [id number] 05/22/2021 10:08:00 PM EDT [facility] ([facility]) Name Value Range Interpretation Code Description Data Shameka rce(s) Supporting Document(s) CPK Creatine Phosphokinase 55 U/L 39-308 [facility] ([facility]) MB/CK Relative Index 5.82 [facility] ([facility]) <content>DIAGNOSIS CRITERIA</content>
<content>MMB ng/ml Relative Index (RI)</content>
<content>NON-AMI < or = 5 N/A</content>
<content>S[place]HER[place] ZONE > 5 < or = 4</content>
<content>AMI > 5 > 4</content>
<content></content> CK-MB Value Mass 3.2 ng/mL [facility] ([facility]) Troponin I 0.13 ng/mL [facility] ([facility]) <content>Troponin I Reference Interval f or [employer] [place] LOCI:</content>
<content></content>
<content>99th Percentile= 0.00-0.045 ng/ml</content>
<content></content>
<content>Risk Stratification:</content>
<content><= 0.10 ng/ml Decreased Risk for Adverse Clinical</content>
<content>Events.</content>
<content>0.10-1.50 ng/ml Increased Risk for Adverse Clinical</content>
<content>Events. Evaluation of additional</content>
<content>criterion and/or repeat testing in 2-6</content>
<content>hours is suggested to rule out myocardial</content>
<content>damage.</content>
<content>>= 1.50 ng/ml Indicative of Myocardial Injury.</content>
<content></content> ID Date Data Source [id number] 05/22/2021 10:08:00 PM EDT [facility] ([facility]) Name Value Range Interpretation Code Description Data Shameka rce(s) Supporting Document(s) C reactive protein [Mass/volume] in Serum or Plasma by High sensitivity method 10.10 mg/dL 0.00-0.30 [facility] ID Date Data Source [id number] 05/22/2021 08:23:00 PM EDT [facility] Name Value Range Interpretation Code Description Data Shameka rce(s) Supporting Document(s) Influenza A Amplification Laboratory test result [facility] Negative results do not preclude influen za or RSV virus infection and should not be used as the sole basis for treatment or other patient management decisions. Influenza B Amplification Laboratory test result [facility] ([facility]) Negative results do not preclude influen za or RSV virus infection and should not be used as the sole basis for treatment or other patient management decisions. RSV Amplification Laboratory test result [facility] ([facility]) Negative results do not preclude influen za or RSV virus infection and should not be used as the sole basis for treatment or other patient management decisions. Laboratory test finding (navigational concept) Laboratory test result [facility] ([facility]) A false negative result may occur [...] pathogens. DISCLAIMER: Testing was performed using the [employer] SARS-CoV-2 test. This test was developed and its performance characteristics determined by [employer]. This test has not been FDA cleared [...] or revoked sooner. ID Date Data Source [id number] 05/22/2021 08:23:00 PM EDT [facility] Name Value Range Interpretation Code Description Data Shameka rce(s) Supporting Document(s) SARS coronavirus 2 RNA [Presence] in Res piratory specimen by CHRISTOPHER with probe detection NEGATIVE [facility] This lab was ordered by [facility] a nd reported by [facility]. ID Date Data Source [id number] 05/22/2021 07:08:00 PM EDT [facility] ([facility]) Name Value Range Interpretation Code Description Data Shameka rce(s) Supporting Document(s) CPK Creatine Phosphokinase 58 U/L 39-308 [facility] ([facility]) CK-MB Value Mass 3.1 ng/mL [facility] ([facility]) MB/CK Relative Index 5.34 [facility]) <content>DIAGNOSIS CRITERIA</content>
<content>MMB ng/ml Relative Index (RI)</content>
<content>NON-AMI < or = 5 N/A</content>
<content>[place] ZONE > 5 < or = 4</content>
<content>AMI > 5 > 4</content>
<content></content> Troponin I 0.14 ng/mL [facility] ([facility]) <content>Troponin I Reference Interval f or [employer] [place] LOCI:</content>
<content></content>
<content>99th Percentile= 0.00-0.045 ng/ml</content>
<content></content>
<content>Risk Stratification:</content>
<content><= 0.10 ng/ml Decreased Risk for Adverse Clinical</content>
<content>Events.</content>
<content>0.10-1.50 ng/ml Increased Risk for Adverse Clinical</content>
<content>Events. Evaluation of additional</content>
<content>criterion and/or repeat testing in 2-6</content>
<content>hours is suggested to rule out myocardial</content>
<content>damage.</content>
<content>>= 1.50 ng/ml Indicative of Myocardial Injury.</content>
<content></content> ID Date Data Source [id number] 05/22/2021 07:08:00 PM EDT [facility] ([facility]) Name Value Range Interpretation Code Description Data Shameka rce(s) Supporting Document(s) Glucose, Fasting 94 mg/dL 70-100 [facility] ([facility]) Creatinine For GFR 4.03 mg/dL 0.70-1.30 [facility] ([facility]) Blood Urea Nitrogen 28 mg/dL 7-18 [facility] ([facility]) Glomerular Filtration Rate 15.4 [facility] ([facility]) <content>Units are mL/min/1.73 m2</content>
<content></content>
<content>Chronic Kidney Disease Staging per NKF:</content>
<content></content>
<content>Stage I & II GFR >=60 Normal to Mildly Decreased</content>
<content>Stage III GFR 30- 59 Moderately Decreased</content>
<content>Stage IV GFR 15-29 Severely Decreased</content>
<content>Stage V GFR <15 Very Little GFR Left</content>
<content>ESRD GFR <15 on INFORMATION WRITER</content>
<content></content> Sodium Level 141 meq/L 136-145 [facility] ([facility]) Chloride Level 102 meq/L 98-107 [facility] ([facility]) Potassium Serum 3.8 meq/L 3.5-5.1 [facility] ([facility]) Carbon Dioxide Level 29 meq/L 21-32 [facility] ([facility]) Anion Gap 10 meq/L 8-16 [facility] ([facility]) Calcium Level 7.9 mg/dL 8.8-10.2 [facility] ([facility]) ID Date Data Source [id number] 05/22/2021 07:08:00 PM EDT [facility] Name Value Range Interpretation Code Description Data Shameka rce(s) Supporting Document(s) Ast/Sgot 29 U/L 7-37 [facility] ([facility]) Alt/SGPT 53 U/L 12-78 [facility] ([facility]) Alkaline Phosphatase 131 U/L 45-117 [facility] ([facility]) Bilirubin,Total 0.4 mg/dL 0.2-1.0 [facility] ([facility]) Albumin 2.6 GM/DL 3.2-5.2 [facility] ([facility]) Bilirubin,Direct 0.2 mg/dL 0.0-0.2 [facility] Total Protein 5.8 GM/DL 6.4-8.2 [facility] ([facility]) Albumin/Globulin Ratio 0.8 [facility] ID Date Data Source [id number] 05/22/2021 07:08:00 PM EDT [facility] Name Value Range Interpretation Code Description Data Shameka rce(s) Supporting Document(s) Thyrotropin [Units/volume] in Serum or Plasma by Detec tion limit <= 0.05 mIU/L 1.940 uIU/ML 0.358-3.740 [facility] ([facility] ) Thyroxine (T4) free [Mass/volume] in Serum or Plasma 0.90 ng/dL 0.76- 1.46 [facility] ([facility]) ID Date Data Source [id number] 05/22/2021 07:08:00 PM EDT [facility] ([facility]) Name Value Range Interpretation Code Description Data Shameka rce(s) Supporting Document(s) White Blood Count 8.4 10 4.0-10.0 [facility] ([facility]) Hematocrit 33.7 % 42.0-52.0 [facility] ([facility]) Red Blood Count 3.35 10 4.30-6.10 [facility] ([facility]) Hemoglobin 10.8 g/dL 13.5-17.5 [facility] ([facility]) Mean Corpuscular Hemoglobin 32.2 pg 27.0-33.0 [place] [facility] ([facility]) Mean Corpuscular Volume 100.6 fl 80.0-96.0 [facility] ([facility]) Red Cell Distribution Width 15.8 % 11.5-14.5 [facility] ([facility]) Mean Corpuscular HGB Conc 32.0 g/dL 32.0-36.5 [facility] ([facility]) Nucleated Red Blood Cell % 0.2 % 0-0 [facility] ([facility]) Platelet Count, Automated 127 10 150-450 [facility] ([facility]) ID Date Data Source [id number] 05/22/2021 07:08:00 PM EDT [facility] ([facility]) Name Value Range Interpretation Code Description Data Shameka rce(s) Supporting Document(s) Bands 12 % [facility] Neutrophils 64 % 28-66 [facility] ([facility]) Lymphocytes 11 % 16-44 [facility] ([facility]) Monocytes 9 % 0-5 [facility] Metamyelocytes 1 % 0-0 [facility] ([facility]) Basophils 1 % 0-1 [facility] Myelocytes 2 % 0-0 [facility] ID Date Data Source [id number] 05/22/2021 07:08:00 PM EDT [facility] ([facility]) Name Value Range Interpretation Code Description Data Shameka rce(s) Supporting Document(s) Platelets [#/volume] in Blood by Estimate Laboratory test result [facility]) ID Date Data Source [id number] 05/18/2021 01:03:00 PM EDT [facility] Name Value Range Interpretation Code Description Data Shameka rce(s) Supporting Document(s) SARS coronavirus 2 RNA [Presence] in Res piratory specimen by CHRISTOPHER with probe detection NEGATIVE [facility] This lab was ordered by [facility] a nd reported by [facility]. ID Date Data Source [id number] 05/07/2021 04:05:00 PM EDT [facility] ([facility]) Name Value Range Interpretation Code Description Data Shameka rce(s) Supporting Document(s) Laboratory test finding (navigational concept) 0.10 ng/mL 0.00-0.08 [facility]) ID Date Data Source [id number] 05/07/2021 03:51:00 PM EDT [facility] ([facility]) Name Value Range Interpretation Code Description Data Shameka rce(s) Supporting Document(s) Laboratory test finding (navigational concept) 33.0 % 38.0-51.0 [facility] ([facility]) Laboratory test finding (navigational concept) 89 mg/dL 70-105 [facility] ([facility]) Laboratory test finding (navigational concept) 140 meq/L 136-145 [facility] ([facility]) Laboratory test finding (navigational concept) 3.9 meq/L 3.5-5.1 [facility] ([facility]) Laboratory test finding (navigational concept) 4.2 mg/dL 4.5-5.3 [facility] ([facility]) Laboratory test finding (navigational concept) 100 meq/L 98-109 [facility] ([facility]) Laboratory test finding (navigational concept) 24.0 MM/L 23.0-27.0 [facility] ([facility]) Laboratory test finding (navigational concept) 41 mg/dL 8-26 [facility] ([facility]) Laboratory test finding (navigational concept) 4.4 mg/dL 0.6-1.3 [facility] ([facility]) ID Date Data Source [id number] 05/07/2021 03:22:00 PM EDT [facility] ([facility]) Name Value Range Interpretation Code Description Data Shameka rce(s) Supporting Document(s) Thyrotropin [Units/volume] in Serum or Plasma by Detec tion limit <= 0.05 mIU/L 0.505 uIU/ML 0.358-3.740 [facility] ID Date Data Source [id number] 05/07/2021 03:22:00 PM EDT [facility] Name Value Range Interpretation Code Description Data Shameka rce(s) Supporting Document(s) Blood Urea Nitrogen 41 mg/dL 7-18 [facility] ([facility]) Creatinine For GFR 4.06 mg/dL 0.70-1.30 [facility] ([facility]) Glucose, Fasting 90 mg/dL 70-100 [facility] ([facility]) Sodium Level 140 meq/L 136-145 [facility] ([facility]) Glomerular Filtration Rate 15.3 [facility] ([facility]) <content>Units are mL/min/1.73 m2</content>
<content></content>
<content>Chronic Kidney Disease Staging per NKF:</content>
<content></content>
<content>Stage I & II GFR >=60 Normal to Mildly Decreased</content>
<content>Stage III GFR 30- 59 Moderately Decreased</content>
<content>Stage IV GFR 15-29 Severely Decreased</content>
<content>Stage V GFR <15 Very Little GFR Left</content>
<content>ESRD GFR <15 on INFORMATION WRITER</content>
<content></content> Chloride Level 106 meq/L 98-107 [facility] [facility]) Potassium Serum 3.9 meq/L 3.5-5.1 [facility] ([facility]) Anion Gap 7 meq/L 8-16 [facility] ([facility]) Carbon Dioxide Level 27 meq/L 21-32 [facility] ([facility]) Calcium Level 7.4 mg/dL 8.8-10.2 [facility] ([facility]) ID Date Data Source [id number] 05/07/2021 03:22:00 PM EDT [facility] ([facility]) Name Value Range Interpretation Code Description Data Shameka rce(s) Supporting Document(s) Ast/Sgot 70 U/L 7-37 [facility] ([facility]) Bilirubin,Total 0.5 mg/dL 0.2-1.0 [facility] ([facility]) Alkaline Phosphatase 84 U/L 45-117 [facility] ([facility]) Alt/SGPT 69 U/L 12-78 [facility] ([facility]) Bilirubin,Direct 0.2 mg/dL 0.0-0.2 [facility] ([facility]) Total Protein 5.3 GM/DL 6.4-8.2 [facility] ([facility]) Albumin/Globulin Ratio 0.8 [facility] ([facility]) Albumin 2.4 GM/DL 3.2-5.2 [facility] ([facility]) ID Date Data Source [id number] 05/07/2021 03:22:00 PM EDT [facility] ([facility]) Name Value Range Interpretation Code Description Data Shameka rce(s) Supporting Document(s) Ammonia [Mass/volume] in Blood Laboratory test result [facility] ([facility]) ID Date Data Source [id number] 05/07/2021 03:22:00 PM EDT [facility] ([facility]) Name Value Range Interpretation Code Description Data Shameka rce(s) Supporting Document(s) Red Blood Count 3.49 10 4.30-6.10 [facility] ([facility]) White Blood Count 6.9 10 4.0-10.0 [facility] ([facility]) Hemoglobin 11.0 g/dL 13.5-17.5 [facility] ([facility]) Hematocrit 34.2 % 42.0-52.0 [facility] Mean Corpuscular Volume 98.0 fl 80.0-96.0 [facility] ([facility]) Mean Corpuscular HGB Conc 32.2 g/dL 32.0-36.5 MEDE NT ([facility]) Mean Corpuscular Hemoglobin 31.5 pg 27.0-33.0 [facility] ([facility]) Red Cell Distribution Width 13.3 % 11.5-14.5 [facility] ([facility]) Neutrophils % 82.7 % 36.0-66.0 [facility] ([facility]) Platelet Count, Automated 108 10 150-450 MEDE NT ([facility]) [place] % 5.1 % 2.0-8.0 [facility]) Lymph % 5.7 % 24.0-44.0 [facility]) Baso % 0.3 % 0.0-1.0 [facility]) Eos % 3.6 % 0.0-3.0 [facility]) Immature Granulocyte % 2.6 % 0-3.0 [facility] ([facility]) Nucleated Red Blood Cell % 0.0 % 0-0 MED ENT ([facility]) Neutrophils # 5.7 10 1.5-8.5 [facility] ([facility]) Lymph # 0.4 10 1.5-5.0 [facility]) [place] # 0.4 10 0.0-0.8 [facility]) Eos # 0.3 10 0.0-0.5 [facility]) Baso # 0.0 10 0.0-0.2 [facility]) ID Date Data Source [id number] 05/07/2021 01:54:00 PM EDT [facility] ([facility]) Name Value Range Interpretation Code Description Data Shameka rce(s) Supporting Document(s) Influenza A Amplification Laboratory test result [facility] ([facility]) Negative results do not preclude influen za or RSV virus infection and should not be used as the sole basis for treatment or other patient management decisions. RSV Amplification Laboratory test result [facility] ([facility]) Negative results do not preclude influen za or RSV virus infection and should not be used as the sole basis for treatment or other patient management decisions. Influenza B Amplification Laboratory test result [facility] Negative results do not preclude influen za or RSV virus infection and should not be used as the sole basis for treatment or other patient management decisions. Laboratory test finding (navigational concept) Laboratory test result [facility] A false negative result may occur if [...] pathogens. DISCLAIMER: Testing was performed using the [employer] SARS-CoV-2 test. This test was developed and its performance characteristics determined by [employer]. This test has not been FDA cleared [...] or revoked sooner. ID Date Data Source [id number] 05/07/2021 01:54:00 PM EDT [facility] Name Value Range Interpretation Code Description Data Shameka rce(s) Supporting Document(s) SARS coronavirus 2 RNA [Presence] in Res piratory specimen by CHRISTOPHER with probe detection NEGATIVE [facility] This lab was ordered by [facility] a nd reported by [facility]. ID Date Data Source [id number] 04/27/2021 08:48:00 PM EDT [facility] ([facility]) Name Value Range Interpretation Code Description Data Shameka rce(s) Supporting Document(s) CPK Creatine Phosphokinase 850 U/L 39-308 MED ENT ([facility]) MB/CK Relative Index 0.91 [facility] ([facility]) <content>DIAGNOSIS CRITERIA</content>
<content>MMB ng/ml Relative Index (RI)</content>
<content>NON-AMI < or = 5 N/A</content>
<content>[place] ZONE > 5 < or = 4</content>
<content>AMI > 5 > 4</content>
<content></content> CK-MB Value Mass 7.7 ng/mL [facility] ([facility]) Troponin I 1.15 ng/mL [facility] ([facility]) <content>Troponin I Reference Interval f or Siemens [place] LOCI:</content>
<content></content>
<content>99th Percentile= 0.00-0.045 ng/ml</content>
<content></content>
<content>Risk Stratification:</content>
<content><= 0.10 ng/ml Decreased Risk for Adverse Clinical</content>
<content>Events.</content>
<content>0.10-1.50 ng/ml Increased Risk for Adverse Clinical</content>
<content>Events. Evaluation of additional</content>
<content>criterion and/or repeat testing in 2-6</content>
<content>hours is suggested to rule out myocardial</content>
<content>damage.</content>
<content>>= 1.50 ng/ml Indicative of Myocardial Injury.</content>
<content></content> ID Date Data Source [id number] 04/27/2021 05:48:00 PM EDT [facility] Name Value Range Interpretation Code Description Data Shameka [facility](s) Supporting Document(s) SARS coronavirus 2 RNA [Presence] in Res piratory specimen by CHRISTOPHER with probe detection NEGATIVE [facility] This lab was ordered by [facility] a nd reported by [facility]. ID Date Data Source [id number] 04/01/2021 01:04:00 PM EDT [facility] ([facility]) Name Value Range Interpretation Code Description Data Shameka rce(s) Supporting Document(s) Prothrombin Time 13.7 s 12.5-14.3 [facility] ([facility]) Inr 1.03 [facility] ([facility] [facility]) THERAPUTIC HUMAN INR VALUES INDICATIONS NORMAL RANGES PROPHYLAXIS/TREATMENT OF: VENOUS THROMBOSIS 2.0-3.0 PULMONARY EMBOLISM 2.0-3.0 PREVENTION OF SYSTEMIC EMBOLISM FROM: TISSUE HEART VALVES 2.0-3.0 ACUTE MYOCARDIAL INFARCTION 2.0-3.0 VALVULAR HEART DISEASE 2.0-3.0 ATRIAL FIBRILLATION 2.0-3.0 MECHANICAL VALVES(HIGH RISK) 2.5-3.5 RECURRENT MYOCARDIAL INFARCTION 2.5-3.5 ID Date Data Source [id number] 04/01/2021 01:04:00 PM EDT [facility] ([facility]) Name Value Range Interpretation Code Description Data [facility] rce(s) Supporting Document(s) Red Blood Count 3.76 10 4.30-6.10 [facility] ([facility]) White Blood Count 9.4 10 4.0-10.0 [facility] ([facility]) Mean Corpuscular Volume 98.7 fl 80.0-96.0 [facility] ([facility]) Hematocrit 37.1 % 42.0-52.0 [facility] [facility] Hemoglobin 11.9 g/dL 13.5-17.5 [facility] Mean Corpuscular Hemoglobin 31.6 pg 27.0-33.0 [place] [facility] ([facility]) Red Cell Distribution Width 12.9 % 11.5-14.5 [facility] ([facility]) Mean Corpuscular HGB Conc 32.1 g/dL 32.0-36.5 [facility] NT ([facility]) Nucleated Red Blood Cell % 0.0 % 0-0 [facility] ([facility]) Platelet Count, Automated 193 10 150-450 [facility] NT ([facility]) ID Date Data Source [id number] 08/12/2020 11:22:00 AM EDT [facility] ([facility]) Name Value Range Interpretation Code Description Data Shameka rce(s) Supporting Document(s) Laboratory test finding (navigational concept) 2888.3 mg/L 1.3-20.0 [facility] ([facility]) NOTE: DILUTED AND VERIFIED Urine Creatinine 372.9 mg/dL 30.0-125.0 [facility] ([facility]) Microalb/Creat Ratio 774.6 ug/mg 0.0-30.0 [facility] ([facility]) ID Date Data Source [id number] 08/12/2020 11:22:00 AM EDT [facility] ([facility]) Name Value Range Interpretation Code Description Data Shameka rce(s) Supporting Document(s) Cholesterol [Mass/volume] in Serum or Plasma 165 mg/dL 131-200 [facility] ([facility]) Triglyceride [Mass/volume] in Serum or Plasma 115 mg/dL 30-150 [facility] ([facility]) Cholesterol in LDL [Mass/volume] in Serum or Plasma by calcu lation 90 CALC 50-159 [facility] ([facility] ) Cholesterol in HDL [Mass/volume] in Serum or Plasma 52 mg/dL 35-60 [facility] ([facility]) ID Date Data Source [id number] 08/12/2020 11:22:00 AM EDT [facility] ([facility]) Name Value Range Interpretation Code Description Data [...] 138 meq/L 136-145 [facility] ([facility]) Calcium [Mass/volume] in Serum or Plasma 9.0 mg/dL 8.5-10.1 [facility] ([facility]) Chloride [Moles/volume] in Serum or Plasma 102 meq/L 98-107 [facility] ([facility]) Carbon dioxide, total [Moles/volume] in Serum or Plasma 27 meq/L 21 -32 [facility] ([facility]) Alanine aminotransferase [Enzymatic activity/volume] in Seru m or Plasma 48 U/L 12-78 [facility] ([facility] ) Total Bilirubin 0.8 mg/dL 0.2-1.0 [facility] Aspartate aminotransferase [Enzymatic activity/volume] in Serum or Plasma 67 U/L 15-37 [facility] ([facility]) Alkaline phosphatase isoenzyme [Units/volume] in Serum or Pl asma 83 mg/dL 46-116 [facility] ([facility] ) Albumin/Globulin [Mass Ratio] in Serum or Plasma 0.81 CALC 1.00-1.90 [facility] ([facility]) Proteinase 3 Ab [Units/volume] in Serum 7.8 g/dL 6.4-8.2 [facility] ([facility]) Albumin [Mass/volume] in Serum or Plasma 3.5 g/dL 3.4-5.0 [facility] ([facility]) Glomerular filtration rate/1.73 sq M pre dicted among non-blacks [Volume Rate/Area] in Serum or Plasma by Creatinine-based formula (MDRD) 42 mL/min [facility] ([facility]) Glomerular filtration rate/1.73 sq M pre dicted among blacks [Volume Rate/Area] in Serum or Plasma by Creatinine-based formula (MDRD) 51 mL/min [facility] ([facility]) <content>CHRONIC KIDNEY DISEASE STAGING PER NKF</content>
<content></content>
<content>STAGE I & II GFR >= 60 NORMAL TO MILDLY DECREASED</content>
<content>STAGE III GFR 30-59 MODERATELY DECREASED</content>
<content>STAGE IV GFR 15-29 SEVERELY DECREASED</content>
<content>STAGE V GFR <15 VERY LITTLE GFR LEFT</content>
<content>ESRD GFR <15 ON INFORMATION WRITER</content>
<content></content>
<content></content> ID Date Data Source [id number] 08/12/2020 11:22:00 AM EDT [facility] ([facility]) Name Value Range Interpretation Code Description Data Shameka rce(s) Supporting Document(s) Glucose mean value [Mass/volume] in Blood Estimated fr om glycated hemoglobin 131 mg/dL 60-110 [facility] ([facility]) Hemoglobin A1c/Hemoglobin.total in Blood 6.2 % [facility] ([facility]) Lab Result Notes: Pre-Diabetes 5.7 - 6.4 % Diabetes = or > 6.5% ID Date Data Source [id number] 08/12/2020 11:22:00 AM EDT [facility] ([facility]) Name Value Range Interpretation Code Description Data Shameka rce(s) Supporting Document(s) Hematocrit [Volume Fraction] of Blood by Automated count 44.5 % 3 7.0-51.0 [facility] ([facility]) Erythrocytes [#/volume] in Blood by Automated count 4.85 x10*6/UL 4.2 0-6.30 [facility] ([facility]) Hemoglobin [Mass/volume] in Blood 15.6 g/dL 12.0-18.0 [facility] ([facility]) Leukocytes [#/volume] in Blood by Automated count 8.7 x10*3/UL 4.1-10 .9 [facility] MCHC 35.1 g/dL 31.0-38.0 [facility] MCV 91.7 fL 80.0-97.0 [facility] ([facility]) MCH 32.2 pg 26.0-32.0 [facility] ([facility] Platelet mean volume [Entitic volume] in Blood by Sussy 8.2 FL 7.8-11.0 [facility] ([facility]) Platelets [#/volume] in Blood by Automated count 222 x10*3/UL 140-440 [facility] ([facility]) Lymphocytes/100 leukocytes in Blood by Automated count 7.5 % 10. 0-58.5 [facility] ([facility]) Erythrocyte distribution width [Ratio] by Automated count 13.4 % 11.6-13.7 [facility] ([facility]) Neut % 85.1 % 37.0-92.0 [facility] ([facility]) Lymph # 0.6 x10*3/UL 0.6-4.1 [facility] ([facility]) Mid # 0.7 x10*3/UL 0.1-0.6 [facility] ([facility]) Mid % 7.4 % 1.7-9.3 [facility] ([facility]) Neutrophils [#/volume] in Semen by Manual count 7.4 x10*3/UL 2.0-7.8 [facility] ([facility]) ID Date Data Source [id number] 08/12/2020 11:22:00 AM EDT [facility] Name Value Range Interpretation Code Description Data Shameka rce(s) Supporting Document(s) Prostate specific Ag [Mass/volume] in Serum or Plasma 0.20 ng/mL [facility] ([facility]) This assay was performed on the Siemens Dimension EXL using the B- Galactosidase/CPRG methodology and should not be compared interchangeably with other methods. The PSA should not be used alone as a screening test for the presence or absence of malignant disease. ID Date Data Source [id number] 08/12/2020 11:22:00 AM EDT [facility] ([facility]) Name Value Range Interpretation Code Description Data Shameka rce(s) Supporting Document(s) Thyrotropin [Units/volume] in Serum or Plasma by Detec tion limit <= 0.05 mIU/L 0.61 uIU/mL 0.36-3.74 [facility] ([facility] ID Date Data Source [id number] 08/12/2020 11:22:00 AM EDT [facility] Name Value Range Interpretation Code Description Data Shameka rce(s) Supporting Document(s) Microalbumin Urine 2888.3 mg/L 1.3-20.0 [facility] ([facility]) NOTE: DILUTED AND VERIFIED Urine Creatinine 372.9 mg/dL 30.0-125.0 [facility] ([facility]) Microalb/Creat Ratio 774.6 ug/mg 0.0-30.0 [facility] ([facility]) ID Date Data Source [id number] 08/12/2020 11:22:00 AM EDT [facility]) Name Value Range Interpretation Code Description Data Shameka rce(s) Supporting Document(s) Cholesterol [Mass/volume] in Serum or Plasma 165 mg/dL 131-200 [facility] ([facility]) Triglyceride [Mass/volume] in Serum or Plasma 115 mg/dL 30-150 [facility] ([facility]) Cholesterol in HDL [Mass/volume] in Serum or Plasma 52 mg/dL 35-60 [facility] ([facility]) Cholesterol in LDL [Mass/volume] in Serum or Plasma by calcu lation 90 CALC 50-159 [facility]) ID Date Data Source [id number] 08/12/2020 11:22:00 AM EDT [facility]) Name Value Range Interpretation Code Description Data Shameka rce(s) Supporting Document(s) Glucose [Mass/volume] in Serum or Plasma 125 mg/dL 74-99 [facility] ([facility]) 100-125 mg/dL PRE-DIABETES/FASTING >126 mg/dL DIABETES/FASTING Creatinine 1.6 mg/dL 0.6-1.3 [facility] ([facility] Urea nitrogen [Mass/volume] in Serum or Plasma 19 mg/dL 7-18 [facility] ([facility]) Potassium [Moles/volume] in Serum or Plasma 4.5 meq/L 3.5-5.1 [facility] ([facility]) Chloride [Moles/volume] in Serum or Plasma 102 meq/L 98-107 [facility] ([facility]) Sodium [Moles/volume] in Serum or Plasma 138 meq/L 136-145 [facility] ([facility]) Total Bilirubin 0.8 mg/dL 0.2-1.0 [facility] ([facility]) Alkaline phosphatase isoenzyme [Units/volume] in Serum or Pl asma 83 mg/dL 46-116 [facility] ([facility]) Calcium [Mass/volume] in Serum or Plasma 9.0 mg/dL 8.5-10.1 [facility] ([facility]) Carbon dioxide, total [Moles/volume] in Serum or Plasma 27 meq/L 21 -32 [facility] ([facility]) Aspartate aminotransferase [Enzymatic activity/volume] in Serum or Plasma 67 U/L 15-37 [facility] ([facility] ) Alanine aminotransferase [Enzymatic activity/volume] in Seru m or Plasma 48 U/L 12-78 [facility] ([facility]) Albumin [Mass/volume] in Serum or Plasma 3.5 g/dL 3.4-5.0 [facility] ([facility]) A/G Ratio 0.81 CALC 1.00-1.90 [facility]) Proteinase 3 Ab [Units/volume] in Serum 7.8 g/dL 6.4-8.2 [facility] ([facility]) Glomerular filtration rate/1.73 sq M pre dicted among non-blacks [Volume Rate/Area] in Serum or Plasma by Creatinine-based formula (MDRD) 42 mL/min [facility] ([facility]) Glomerular filtration rate/1.73 sq M pre dicted among blacks [Volume Rate/Area] in Serum or Plasma by Creatinine-based formula (MDRD) 51 mL/min [facility] <content>CHRONIC KIDNEY DISEASE STAGING PER NKF</content>
<content></content>
<content>STAGE I & II GFR >= 60 NORMAL TO MILDLY DECREASED</content>
<content>STAGE III GFR 30-59 MODERATELY DECREASED</content>
<content>STAGE IV GFR 15-29 SEVERELY DECREASED</content>
<content>STAGE V GFR <15 VERY LITTLE GFR LEFT</content>
<content>ESRD GFR <15 ON INFORMATION WRITER</content>
<content></content> ID Date Data Source [id number] 08/12/2020 11:22:00 AM EDT [facility] ([facility]) Name Value Range Interpretation Code Description Data Shameka rce(s) Supporting Document(s) Hemoglobin A1c/Hemoglobin.total in Blood 6.2 % [facility] ([facility] Lab Result Notes: Pre-Diabetes 5.7 - 6.4 % Diabetes = or > 6.5% Glucose mean value [Mass/volume] in Blood Estimated fr om glycated hemoglobin 131 mg/dL 60-110 [facility] ([facility] ID Date Data Source [id number] 08/12/2020 11:22:00 AM EDT [facility] ([facility]) Name Value Range Interpretation Code Description Data Shameka rce(s) Supporting Document(s) Erythrocytes [#/volume] in Blood by Automated count 4.85 x10*6/UL 4.2 0-6.30 [facility] ([facility] Leukocytes [#/volume] in Blood by Automated count 8.7 x10*3/UL 4.1-10 .9 [facility] ([facility]) MCV 91.7 fL 80.0-97.0 [facility] MCH 32.2 pg 26.0-32.0 [facility] ([facility]) Hematocrit [Volume Fraction] of Blood by Automated count 44.5 % 3 7.0-51.0 [facility] ([facility] Hemoglobin [Mass/volume] in Blood 15.6 g/dL 12.0-18.0 [facility] ([facility]) MCHC 35.1 g/dL 31.0-38.0 [facility] ([facility]) Platelets [#/volume] in Blood by Automated count 222 x10*3/UL 140-440 [facility] ([facility]) Erythrocyte distribution width [Ratio] by Automated count 13.4 % 11.6-13.7 [facility] ([facility]) MPV 8.2 FL 7.8-11.0 [facility] Mid % 7.4 % 1.7-9.3 [facility] [facility] Lymph % 7.5 % 10.0-58.5 [facility] [facility] Neut % 85.1 % 37.0-92.0 [facility]) Lymph # 0.6 x10*3/UL 0.6-4.1 [facility] ([facility]) Neut # 7.4 x10*3/UL 2.0-7.8 [facility] ([facility]) Mid # 0.7 x10*3/UL 0.1-0.6 [facility] ([facility]) Procedure Social History Code Duration Value Status Description Data Source(s ) Alcohol intake 08/28/2021 12:00:00 AM EDT Current drinker of al cohol (finding) completed Current drinker of alcohol (finding) [facility] Smoking 09/09/2020 12:00:00 AM EDT Patient is a former smoker completed Patient is a former smoker [facility] ([facility]) Vital Signs ID Date Data Source [id number] Name Value Range Interpretation Code Description Data Source(s) Systolic blood pressure 120 mm[Hg] 120 mm[Hg] [facility] ([facility]) Diastolic blood pressure 76 mm[Hg] 76 mm[Hg] [facility] Body height 68 [in_i] 68 [in_i] [facility] ([facility]) 5'8" Body weight 134.00 [lb_av] 134.00 [lb_av] [facility] ([facility]) Body mass index (BMI) [Ratio] 20.4 kg/m2 20.4 k g/m2 [facility] ([facility]) Systolic blood pressure 100 mm[Hg] 100 mm[Hg] [facility] Diastolic blood pressure 60 mm[Hg] 60 mm[Hg] [facility] Heart rate 89 /min 89 /min [facility] Body height 177.8 cm 177.8 cm [facility] Body weight 65.772 kg 65.772 kg [facility] Body mass index (BMI) [Ratio] 20.81 kg/m2 20.81 kg/m2 [facility] Oxygen saturation in Arterial blood by Pulse oximetry 97 % 97 % [facility] Systolic blood pressure 110 mm[Hg] 110 mm[Hg] [facility] ([facility]) Diastolic blood pressure 74 mm[Hg] 74 mm[Hg] [facility] ([facility]) Heart rate 56 /min 56 /min [facility] ([facility]) Body height 68 [in_i] 68 [in_i] [facility] ([facility]) 5'8" Body weight 154.00 [lb_av] 154.00 [lb_av] [facility] ([facility]) Oxygen saturation in Arterial blood by Pulse oximetry 97 % 97 % [facility] ([facility]) Air Body mass index (BMI) [Ratio] 23.4 kg/m2 23.4 k g/m2 [facility] Diastolic blood pressure 76 mm[Hg] 76 mm[Hg] [facility] ([facility]) Systolic blood pressure 112 mm[Hg] 112 mm[Hg] [facility] ([facility]) Heart rate 80 /min 80 /min [facility] ([facility]) Body mass index (BMI) [Ratio] 23.9 kg/m2 23.9 k g/m2 [facility] ([facility]) Body height 68 [in_i] 68 [in_i] [facility] ([facility]) 5'8" Body weight 157.00 [lb_av] 157.00 [lb_av] [facility] ([facility]) Heart rate 62 /min 62 /min [facility] ([facility]) Systolic blood pressure 102 mm[Hg] 102 mm[Hg] [facility] ([facility]) Diastolic blood pressure 50 mm[Hg] 50 mm[Hg] [facility] ([facility]) Body mass index (BMI) [Ratio] 23.9 kg/m2 23.9 k g/m2 [facility] ([facility]) Body height 68 [in_i] 68 [in_i] [facility] ([facility]) 5'8" Body weight 157.00 [lb_av] 157.00 [lb_av] [facility] [facility] Systolic blood pressure 128 mm[Hg] 128 mm[Hg] [facility] ([facility] Body mass index (BMI) [Ratio] 27.5 kg/m2 27.5 k g/m2 [facility] ([facility] Body height 68 [in_i] 68 [in_i] [facility] 5'8" Body weight 181.00 [lb_av] 181.00 [lb_av] [facility] ([facility] Diastolic blood pressure 66 mm[Hg] 66 mm[Hg] [facility] ([facility] Heart rate 59 /min 59 /min [facility] ([facility] Diastolic blood pressure 80 mm[Hg] 80 mm[Hg] [facility] ([facility]) Systolic blood pressure 120 mm[Hg] 120 mm[Hg] M EDENT ([facility]) Diastolic blood pressure 80 mm[Hg] 80 mm[Hg] [facility] ([facility]) Heart rate 78 /min 78 /min [facility] ([facility] Body height 69 [in_i] 69 [in_i] [facility] 5'9" Body weight 180.00 [lb_av] 180.00 [lb_av] [facility] T ([facility]) Body weight 81.648 kg 81.648 kg [facility] ([facility] Body mass index (BMI) [Ratio] 26.6 kg/m2 26.6 k g/m2 [facility] ([facility]) Systolic blood pressure 120 mm[Hg] 120 mm[Hg] M EDENT ([facility]) Diastolic blood pressure 72 mm[Hg] 72 mm[Hg] [facility] ([facility]) Systolic blood pressure 118 mm[Hg] 118 mm[Hg] M EDENT ([facility]) Body height 68 [in_i] 68 [in_i] [facility] ([facility]) 5'8" Heart rate 70 /min 70 /min [facility] ([facility]) Body weight 187.00 [lb_av] 187.00 [lb_av] MEDEN T ([facility]) Body mass index (BMI) [Ratio] 28.4 kg/m2 28.4 k g/m2 [facility] ([facility]) Patient Treatment Plan of Care Planned Activity Planned Date Details Description Data Source (s) midodrine hydrochloride 2.5 MG Oral Tablet 08/28/2021 12:00:00 AM E DT [facility] albuterol (PROVENTIL HFA;VENTOLIN HFA) 108 (90 Base) M CG/ACT inhaler 08/13/2021 12:00:00 AM EDT [facility] Acetaminophen 325 MG Oral Tablet 08/13/2021 12:00:00 AM EDT [facility] Finasteride 5 MG Oral Tablet 07/14/2021 12:00:00 AM EDT [facility] Ergocalciferol [id number] UNT Oral Capsule 07/07/2021 12:00:00 AM EDT [facility] Levothyroxine Sodium 0.088 MG Oral Tablet 06/18/2021 12:00:00 AM ED T [facility] gabapentin 100 MG Oral Capsule 06/18/2021 12:00:00 AM EDT [facility] Folic Acid 1 MG Oral Tablet 06/18/2021 12:00:00 AM EDT [facility] Vitamin B 12 0.5 MG Oral Tablet 06/18/2021 12:00:00 AM EDT [facility] atorvastatin 20 MG Oral Tablet 06/18/2021 12:00:00 AM EDT [facility] apixaban 2.5 MG Oral Tablet 06/18/2021 12:00:00 AM EDT [facility] Metoprolol Tartrate 25 MG Oral Tablet 06/12/2021 12:00:00 AM EDT [facility] 24 HR metoprolol succinate 100 MG Extended Release Ora l Tablet 05/19/2020 12:00:00 AM EDT [facility] Lovastatin 40 MG Oral Tablet 07/28/2018 12:00:00 AM EDT [facility] rivaroxaban 15 MG Oral Tablet 05/31/2014 12:00:00 AM EDT [facility] Levothyroxine Sodium 0.088 MG Oral Tablet [facility]
[2021-09-14] MEDS ORDERED: TAMS1CAP17 (16:40)
[2021-09-14] MEDS ORDERED: DOXY-443 (16:40)
[2021-09-14] MEDS ORDERED: METO1TAB87 (16:40)
--- OUTSIDE RECORDS SUMMARY | 2021-09-14 16:57 | CCD ---
Author Author [facility] Organization [facility] Address Unknown Phone Unavailable Care Team Providers Care Produce Department Supervisor Name Role Phone Manasa Sandoval MD Unavailable [...] F Eduardo MD Unavailable Unavailable White, F Edaurdo MD Unavailable Unavailable White, F Eduardo MD [...] YULISSA, KIA CARRERA Unavailable Unavailable YULISSA, KIA ACRRERA Unavailable Unavailable YULISSA, KIA CARRERA Unavailable Unavailable [...] SEMEL, Юлия ZHANG MD Unavailable Unavailable SEMEL, лЮия ZHANG MD Unavailable Unavailable SEMEL, Юлия ZHANG [...] A LEATHA MD Unavailable Unavailable SEMEL, A LEATAH MD Unavailable Unavailable SEMEL, A LEATHA MD [...] is protected by Article 27-F of the [place] State Public Health law. If you continue you may have access to information: Regarding HIV / AIDS; Provided by facilities licensed or operated by the [facility] Office of Mental Health; or Provided by the [facility] Office for People With Developmental Disabilities. If such information is present, then the following [facility] mandated warning applies: This information has been [...] law may result in a fine or senior care sentence or both. A general authorization for the release of medical or other information is NOT sufficient authorization for further disc losure. Family History Family Member Name Family Member Gender Family Member Status Date o f Status Description Data Source(s) Unknown Unknown Problem [facility] ([facility] Unknown Unknown Problem [facility] ([facility] Unknown Male Problem MED[facility] ([facility]) Unknown Male Problem MEDENT ([facility] () Encounters Encounter Providers Location Date Indications Data Source(s ) Outpatient Attender: KIA DUENAS MD [email or web address] 12:00:00 AM EDT - 08/28/2021 02:45:09 PM EDT [facility] Outpatient Attender: IVAN Souza 0 08/03/2021 02:40:00 PM EDT MEDENT ([facility] ) Outpatient Attender: Eduardo Souza 07/03 02:00:00 PM EDT MED[facility] ([facility] ) Outpatient Attender: IVAN Souza 0 06/17/2021 10:20:00 AM EDT MEDENT ([facility] ) Outpatient Attender: TERI FERRIS [facility] Office 12/22 01:45:00 PM EST MED[facility] ([facility] Outpatient Attender: LEATHA AN MD Main Office 09/09/2020 01:00:0 0 PM EDT MEDENT ([facility]) [facility] [address] [place] [id number] 08/15/2020 12:00:00 AM EDT eCW1 ([facility]) Outpatient Attender: Eduardo Souza 08/13 10:30:00 AM EDT MEDENT ([facility] ) Immunizations Vaccine Date Status Description Data Source(s) COVID-19 VACCINE Moderna 02/17/2021 12:00:00 AM EDT completed [facility] Vaccine Series Complete: YESThis Data wa s Submitted to [facility] Via [employer]. COVID-19 VACCINE Moderna 01/20/2021 12:00:00 AM EST completed [facility] Vaccine Series Complete: NOThis Data was Submitted to [facility] [employer]. Influenza, injectable, MDCK, preservative free, gage valent 08/13/2020 10:49:00 AM EDT completed [facility] ([facility]) Medications Medication Brand Name Start [...] & 2ND IN AFTERNOON DAILY SOLD: 09/02/2021 [facility] midodrine hydrochloride 2.5 MG Oral Tablet midodrine ( PROAMATINE) 2.5 MG tablet midodrine (PROAMATINE) 2.5 MG tablet 08/28/2021 12:00:00 AM EDT 2.5 m g Oral active Take 1 tablet (2 .5 mg total) by mouth 2 (two) times a day First dose in the launch steward 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 [facility] 25 mg 08/25/2021 12:00:00 AM EDT tablet [...] HFA) 108 (90 Base) M CG/ACT inhaler [id number] 08/13/2021 12:00:00 AM EDT activ e INHALE 4 PUFFS EVERY 4 HOURS NEEDED FOR SHORTNESS OF BREATH/WHEEZING [facility] Acetaminophen 325 MG Oral Tablet acetaminophen (TYLENO L) 325 MG tablet acetaminophen (TYLENOL) 325 MG tablet 08/13/2021 12:00:00 AM EDT active TAKE 2 TABLETS BY MO UT EVERY 4 HOURS NEEDED FOR MILD PAIN OR TEMP OVER 101 MAX OF 9 TABLETS PER DAY [facility] atorvastatin 20 MG Oral Tablet ATORVASTATIN CALCIUM [...] active Take 5 mg by mouth daily [facility] 1,250 mcg (50,000 unit) 07/13/2021 12:00:00 AM EDT capsule 8 TAKE 1 CAPSULE BY MOUTH ONCE WEEKLY FOR 8 WEEKS TAKE 1 CAPSULE BY MOUTH ONCE WEEKLY FOR 8 WEEKS SOLD: 07/13/2021 [facility] Ergocalciferol 37336 UNT Oral Capsule er gocalciferol (Drisdol) 1.25 MG (61367 UT) capsule ergocalciferol (Drisdol) 1.25 MG (40481 UT) capsule 12:00:00 AM EDT Oral active Take by mouth [facility] Levothyroxine Sodium 0.088 MG Oral Table t levothyroxine (SYNTHROID, LEVOTHROID) 88 MCG tablet levothyroxine (SYNTHROID, LEVOTHROID) 88 MCG tablet 12:00:00 AM EDT 1 {tbl} Oral active Take 1 tablet by mouth daily [facility] Vitamin B 12 0.5 MG Oral Tablet cyanocobalamin 500 MCG tablet cyanocobalamin 500 MCG tablet 06/18/2021 12:00:00 AM EDT 2 {tbl} Oral active Take 2 tablets by mouth [facility] gabapentin 100 MG Oral Capsule gabapentin (NEURONTIN) 100 MG capsule gabapentin (NEURONTIN) 100 MG capsule 06/18/2021 12:00:00 AM EDT Oral active Take by mouth [facility] Folic Acid 1 MG Oral Tablet folic acid (FOLVITE) 1 MG tablet folic acid (FOLVITE) 1 MG tablet 06/18/2021 12:00:00 AM EDT 1 {tbl} Oral active Take 1 tablet by mouth [facility] apixaban 2.5 MG Oral Tablet apixaban (Eliquis) 2.5 MG TABS tablet apixaban (Eliquis) 2.5 MG TABS tablet 06/18/2021 12:00:00 AM EDT 1 {tbl} Oral active Take 1 tablet by mouth [facility] atorvastatin 20 MG Oral Tablet atorvastatin (LIPITOR) 20 MG tablet atorvastatin (LIPITOR) 20 MG tablet 06/18/2021 12:00:00 AM EDT 1 {tbl} Oral active Take 1 tablet by mouth [facility] apixaban 2.5 MG Oral Tablet [Eliquis] Eliquis 06/17/2021 12:00:00 AM EDT ORAL active MEDENT ([facility]) atorvastatin 20 MG Oral Tablet Atorvastatin Calcium 06/17/2021 1 2:00:00 AM EDT ORAL active MED[facility] ( [facility]) Prednisone 10 MG Oral Tablet Prednisone 06/17/2021 12:00:00 AM EDT ORAL completed MEDENT ([facility]) Metoprolol Tartrate 25 MG Oral Tablet Metoprolol Tartrate 12:00:00 AM EDT ORAL active MEDENT ([facility]) ramelteon 8 MG Oral Tablet Ramelteon 06/17/2021 12:00:00 AM EDT active MED[facility] ([facility]) Thiamine 100 MG Oral Tablet Vitamin B-1 06/17/2021 12:00:00 AM EDT ORAL active MED[facility] ([facility]) Vitamin B 12 1 MG Oral Tablet Vitamin B-12 06/17/2021 12:00:00 AM EDT ORAL active MEDENT ([facility]) gabapentin 100 MG Oral Capsule Gabapentin 06/17/2021 12:00:00 AM EDT ORAL active MED[facility] ([facility]) Folic Acid 1 MG Oral Tablet Folic Acid 06/17/2021 12:00:00 AM EDT ORAL active MED[facility] ([facility]) 2.5 mg 06/12/2021 12:00:00 AM EDT [...] by mouth 2 (two) times a day [facility] 88 mcg 06/12/2021 12:00:00 AM EDT tablet [...] orted TAKE ONE TABLET BY MOUTH DAILY [facility] Lovastatin 40 MG Oral Tablet lovastatin (MEVACOR) 40 M G tablet lovastatin (MEVACOR) 40 MG tablet 07/28/2018 12:00:00 AM EDT 80 mg Oral aborted Take 80 mg by mouth nightly [facility] rivaroxaban 15 MG Oral Tablet rivaroxaban (XARELTO) 15 MG TABS rivaroxaban (XARELTO) 15 MG TABS 05/31/2014 12:00:00 AM EDT 15 mg aborted 15 mg daily [facility] Levothyroxine Sodium 0.088 MG Oral Table t levothyroxine (SYNTHROID, LEVOTHROID) 88 MCG tablet levothyroxine (SYNTHROID, LEVOTHROID) 88 MCG tablet 100 ug Oral aborted Take 100 mcg by mout h daily [facility] Insurance Providers Payer name Policy type / Coverage type Policy ID Covered libertarian ID Covered libertarian's relationship to delcid Policy Delcid [facility] [id number] WI2 [id number] [facility] [id number] MEDICARE [id number] SP [id number] A MEDICARE [id number] MEDICARE [id number] SP [id number] A MEDICARE [id number] [facility] [id number] R [id number] [facility] [id number] [facility] [id number] r ([facility]) Commercial [id number] Family Dependent [id number] [facility] [employer] Health Maintenance Organization (HMO) [id number] Family Dependent [id number] Commercial [id number] [facility] B [id number] Self [id number] ANSI-Commercial [id number] MEDICARE [id number] A [facility] B [id number] Self [id number] ANSI-Commercial [id number] [facility] [id number] Self [id number] [employer] (Old) Commercial [id number] Family Dependent [id number] [employer] Commercial [id number] Family Dependent [id number] [facility] B [id number] Self [id number] [employer] [employer] Commercial [id number] Family Dependent [id number] [facility] Part B [id number] Self [id number] [employer] Commercial [id number] Family Dependent [id number] [employer] Commercial [id number] Family Dependent 91 0 MEDICARE [id number] SP [id number] [facility] [id number] WI2 [id number] MEDICARE [id number] SP [id number] [facility] [id number] WI2 [id number] [employer] Medigap Part B [id number] Self [id number] Umr Commercial [id number] Family Dependent [id number] [employer] Medigap Part B [id number] Self [id number] [employer] Medigap Part B 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, unspe cified Disorders of magnesium metabolism, unspecified [id number] 05/06/2021 12:00:00 AM EDT [facility] N18.9 Anemia in chronic kidney disease Anemia in chron ic kidney disease [id number] 05/06/2021 12:00:00 AM EDT [facility] E11.42 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 etes mellitus 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etes mellitus Problem 01/05/2021 12:00: 00 AM EST MED[facility] ([facility] M79.671 Pain in limb Pain in limb Problem 01/05/2021 12:00:00 A M EST [facility] ([facility] [id number] Pressure ulcer of right foot stage 1 Pre ssure ulcer of right foot stage 1 Problem 01/05/2021 12:00:00 AM EST [facility] ([facility] [id number] 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 Problem 01/05/2021 12:00:00 AM EST [facility] Surgeries/Procedures Procedure Description Date Indications Data Source(s) POCT AMB EKG <td>POCT AMB EKG</td><td>Rou liam</td><td>08/28/2021 5:58 PM EDT</td><td> Atrial fibrillation Benign essential hypertension</td><td> </td> 08/28/2021 05:58:00 PM EDT Benign essential hypertensionAtrial fibrillation [facility] Benign essential hypertension Atrial fibrillation BLOOD COUNT COMPLETE AUTO&AUTO DIFRNTL WBC COUNT <td>C BC AND DIFFERENTIAL</td><td>Routine</td><td>08/13/2021</td><td></td><td> </td> 08/13/2021 12:00:00 AM EDT [facility] BASIC METABOLIC PANEL CALCIUM TOTAL <td>BASIC METABOLI C PANEL</td><td>Routine</td><td>08/13/2021</td><td></td><td> </td> 08/13/2021 12:00:00 AM EDT [facility] OFFICE OUTPATIENT VISIT 15 MINUTES 08/03/2021 12:00:00 AM EDT MEDENT ([facility]) DEBRIDEMENT SUBCUTANEOUS TISSUE 20 SQ CM/< 08/03/2021 12:00:00 AM EDT [facility] ([facility] DEBRIDEMENT NAIL ANY METHOD 08/03/2021 12:00:00 AM EDT [facility] ([facility] OFFICE OUTPATIENT VISIT 25 MINUTES 07/03/2021 12:00:00 AM EDT MED[facility] ([facility]) OFFICE OUTPATIENT VISIT 25 MINUTES 06/17/2021 12:00:00 AM EDT MED[facility] ([facility]) DEBRIDEMENT NAIL ANY METHOD 01/02/2021 12:00:00 AM EST [facility] ([facility] DEBRIDEMENT OPEN WOUND 20 SQ CM/< 01/02/2021 12:00:00 AM EST [facility] ([facility] Results ID Date Data Source [id number] 09/03/2021 01:45:00 PM EDT MED[facility] ([facility]) Name Value Range Interpretation Code Description Data Shameka rce(s) Supporting Document(s) Influenza A Amplification Laboratory test result [facility] Negative results do not preclude influen za or RSV virus infection and should not be used as the sole basis for treatment or other patient management decisions. Influenza B Amplification Laboratory test result MED[facility] ([facility]) Negative results do not preclude influen za or RSV virus infection and should not be used as the sole basis for treatment or other patient management decisions. Laboratory test finding (navigational concept) Laboratory test result MED[facility] ([facility]) A false negative result may occur [...] pathogens. DISCLAIMER: Testing was performed using the [employer] SARS-CoV-2 test. This test was developed and its performance characteristics determined by [employer]. This test has not been FDA cleared [...] sooner. RSV Amplification Laboratory test result MED[facility] ([facility]) Negative results do not preclude influen za or RSV virus infection and should not be used as the sole basis for treatment or other patient management decisions. ID Date Data Source [id number] 09/03/2021 01:45:00 PM EDT [facility] Name Value Range Interpretation Code Description Data Shameka rce(s) Supporting Document(s) SARS coronavirus 2 RNA [Presence] in Res piratory specimen by CHRISTOPHER with probe detection NEGATIVE [facility] This lab was ordered by [facility] a nd reported by [facility]. ID Date Data Source [id number] 09/03/2021 11:39:00 AM EDT MED[facility] ([facility]) Name Value Range Interpretation Code Description Data Shameka rce(s) Supporting Document(s) Glucose, Fasting 93 mg/dL 70-100 [facility] ([facility]) Blood Urea Nitrogen 20 mg/dL 7-18 MED[facility] ([facility] Glomerular Filtration Rate 15.9 [facility] ([facility]) <content>Units are mL/min/1.73 m2</content>
<content></content>
<content>Chronic Kidney Disease Staging per NKF:</content>
<content></content>
<content>Stage I & II GFR >=60 Normal to Mildly Decreased</content>
<content>Stage III GFR 30- 59 Moderately Decreased</content>
<content>Stage IV GFR 15-29 Severely Decreased</content>
<content>Stage V GFR <15 Very Little GFR Left</content>
<content>ESRD GFR <15 on ANNEALING OVEN OPERATOR</content>
<content></content> Creatinine For GFR 3.93 mg/dL 0.70-1.30 MED[facility] ([facility]) Sodium Level 135 meq/L 136-145 [facility] ([facility]) Chloride Level 96 meq/L 98-107 [facility] ([facility]) Potassium Serum 3.0 meq/L 3.5-5.1 MED[facility] ([facility]) Carbon Dioxide Level 32 meq/L 21-32 [facility] ([facility]) Anion Gap 7 meq/L 8-16 [facility] Calcium Level 8.4 mg/dL 8.8-10.2 [facility] ([facility]) Ast/Sgot 20 U/L 7-37 [facility] ([facility] Alkaline Phosphatase 108 U/L 45-117 [facility] Bilirubin,Total 1.0 mg/dL 0.2-1.0 MED[facility] ([facility]) Alt/SGPT 12 U/L 12-78 MED[facility] ([facility]) Total Protein 6.5 GM/DL 6.4-8.2 MED[facility] ([facility]) Albumin 2.5 GM/DL 3.2-5.2 MED[facility] ([facility]) Albumin/Globulin Ratio 0.6 [facility] ([facility]) ID Date Data Source [id number] 09/03/2021 11:39:00 AM EDT [facility] ([facility]) Name Value Range Interpretation Code Description Data Shameka rce(s) Supporting Document(s) CPK Creatine Phosphokinase 40 U/L 39-308 MED E[facility] ([facility]) CK-MB Value Mass 1.3 ng/mL [facility] ([facility]) Troponin I 0.03 ng/mL [facility] ([facility]) <content>Troponin I Reference Interval f or Siemens [place] LOCI:</content>
<content></content>
<content>99th Percentile= 0.00-0.045 ng/ml</content>
<content></content>
<content>Risk Stratification:</content>
<content><= 0.10 ng/ml Decreased Risk for Adverse Clinical</content>
<content>Events.</content>
<content>0.10-1.50 ng/ml Increased Risk for Adverse Clinical</content>
<content>Events. Evaluation of additional</content>
<content>criterion and/or repeat testing in 2-6</content>
<content>hours is suggested to rule out myocardial</content>
<content>damage.</content>
<content>>= 1.50 ng/ml Indicative of Myocardial Injury.</content>
<content></content> MB/CK Relative Index 3.25 [facility] <content>DIAGNOSIS CRITERIA</content>
<content>MMB ng/ml Relative Index (RI)</content>
<content>NON-AMI < or = 5 N/A</content>
<content>[place] ZONE > 5 < or = 4</content>
<content>AMI > 5 > 4</content>
<content></content> ID Date Data Source [id number] 09/03/2021 11:39:00 AM EDT MEDENT ([facility]) Name Value Range Interpretation Code Description Data Shameka rce(s) Supporting Document(s) Thyrotropin [Units/volume] in Serum or Plasma by Detec tion limit <= 0.05 mIU/L 0.240 uIU/ML 0.358-3.740 [facility] ([facility] ) ID Date Data Source [id number] 09/03/2021 11:39:00 AM EDT MED[facility] ([facility]) Name Value Range Interpretation Code Description Data Shameka rce(s) Supporting Document(s) White Blood Count 8.0 10 4.0-10.0 MED[facility] ([facility]) Hemoglobin 10.2 g/dL 13.5-17.5 [facility] ([facility] Red Blood Count 3.28 10 4.30-6.10 MED[facility] ([facility]) Mean Corpuscular Hemoglobin 31.1 pg 27.0-33.0 ME DENT ([facility]) Mean Corpuscular Volume 94.2 fl 80.0-96.0 [facility] ([facility]) Hematocrit 30.9 % 42.0-52.0 [facility] ([facility] Mean Corpuscular HGB Conc 33.0 g/dL 32.0-36.5 MEDE NT ([facility]) Red Cell Distribution Width 14.0 % 11.5-14.5 ID DENT ([facility]) Platelet Count, Automated 240 10 150-450 MEDE NT ([facility]) Nucleated Red Blood Cell % 0.0 % 0-0 [facility] ([facility]) ID Date Data Source [id number] 08/12/2021 03:35:00 PM EDT [facility] Name Value Range Interpretation Code Description Data Shameka rce(s) Supporting Document(s) Respiratory pathogens identified [Type] in Nasopharynx by Probe and target amplification method SARS-CoV-2 (COVID 19) [facility] This lab was ordered by [facility] a nd reported by [facility]. ID Date Data Source [id number] 07/01/2021 11:21:00 AM EDT [facility] Name Value Range Interpretation Code Description Data Shameka rce(s) Supporting Document(s) Thyrotropin [Units/volume] in Serum or Plasma by Detec tion limit <= 0.05 mIU/L 0.88 uIU/mL 0.36-3.74 [facility] ([facility] ) ID Date Data Source [id number] 07/01/2021 11:21:00 AM EDT [facility] ([facility]) Name Value Range Interpretation Code Description Data Shameka rce(s) Supporting Document(s) Cholesterol [Mass/volume] in Serum or Plasma 184 mg/dL 131-200 [facility] Triglyceride [Mass/volume] in Serum or Plasma 146 mg/dL 30-150 [facility] ([facility]) Cholesterol in HDL [Mass/volume] in Serum or Plasma 80 mg/dL 35-60 [facility] ([facility]) Cholesterol in LDL [Mass/volume] in Serum or Plasma by calcu lation 75 CALC 50-159 [facility] ([facility]) ID Date Data Source [id number] 07/01/2021 11:21:00 AM EDT [facility] ([facility]) Name Value Range Interpretation Code Description Data Shameka rce(s) Supporting Document(s) Glucose [Mass/volume] in Serum or Plasma 104 mg/dL 74-99 [facility] ([facility]) 100-125 mg/dL PRE-DIABETES/FASTING >126 mg/dL DIABETES/FASTING Creatinine 2.8 mg/dL 0.6-1.3 [facility] ([facility]) Urea nitrogen [Mass/volume] in Serum or Plasma 22 mg/dL 7-18 [facility] ([facility]) NOTE: BUN,CREAT VERIFIED Potassium [Moles/volume] in Serum or Plasma 3.6 meq/L 3.5-5.1 [facility] ([facility]) Sodium [Moles/volume] in Serum or Plasma 136 meq/L 136-145 [facility] ([facility]) Chloride [Moles/volume] in Serum or Plasma 96 meq/L 98-107 [facility] ([facility]) Carbon dioxide, total [Moles/volume] in Serum or Plasma 34 meq/L 21 -32 [facility] ([facility]) Calcium [Mass/volume] in Serum or Plasma 9.1 mg/dL 8.5-10.1 [facility] ([facility]) Total Bilirubin 0.5 mg/dL 0.2-1.0 [facility] ([facility]) Alkaline phosphatase isoenzyme [Units/volume] in Serum or Pl asma 98 mg/dL 46-116 [facility] ([facility]) Aspartate aminotransferase [Enzymatic activity/volume] in Serum or Plasma 28 U/L 15-37 [facility] ([facility] ) Alanine aminotransferase [Enzymatic activity/volume] in Seru m or Plasma 25 U/L 12-78 [facility] Albumin [Mass/volume] in Serum or Plasma 3.1 g/dL 3.4-5.0 [facility] ([facility]) A/G Ratio 0.79 CALC 1.00-1.90 [facility]) Proteinase 3 Ab [Units/volume] in Serum 7.0 g/dL 6.4-8.2 [facility] Glomerular filtration rate/1.73 sq M pre dicted among non-blacks [Volume Rate/Area] in Serum or Plasma by Creatinine-based formula (MDRD) 22 mL/min [facility] Glomerular filtration rate/1.73 sq M pre dicted among blacks [Volume Rate/Area] in Serum or Plasma by Creatinine-based formula (MDRD) 27 mL/min [facility] <content>CHRONIC KIDNEY DISEASE STAGING PER NKF</content>
<content></content>
<content>STAGE I & II GFR >= 60 NORMAL TO MILDLY DECREASED</content>
<content>STAGE III GFR 30-59 MODERATELY DECREASED</content>
<content>STAGE IV GFR 15-29 SEVERELY DECREASED</content>
<content>STAGE V GFR <15 VERY LITTLE GFR LEFT</content>
<content>ESRD GFR <15 ON ANNEALING OVEN OPERATOR</content>
<content></content> ID Date Data Source [id number] 07/01/2021 11:21:00 AM EDT [facility]) Name Value Range Interpretation Code Description Data Shameka rce(s) Supporting Document(s) Hemoglobin A1c/Hemoglobin.total in Blood 5.5 % [facility] ([facility]) Lab Result Notes: Pre-Diabetes 5.7 - 6.4 % Diabetes = or > 6.5% Glucose mean value [Mass/volume] in Blood Estimated fr om glycated hemoglobin 111 mg/dL 60-110 [facility] ([facility] ) ID Date Data Source [id number] 07/01/2021 11:21:00 AM EDT [facility]) Name Value Range Interpretation Code Description Data Shameka rce(s) Supporting Document(s) Leukocytes [#/volume] in Blood by Automated count 13.6 x10*3/UL 4.1-1 0.9 [facility] ([facility]) NOTE: CBC VERIFIED Erythrocytes [#/volume] in Blood by Automated count 4.09 x10*6/UL 4.2 0-6.30 [facility] ([facility]) Hemoglobin [Mass/volume] in Blood 12.9 g/dL 12.0-18.0 [facility] ([facility]) MCV 93.2 fL 80.0-97.0 [facility]) Hematocrit [Volume Fraction] of Blood by Automated count 38.1 % 3 7.0-51.0 [facility] ([facility]) MCHC 33.8 g/dL 31.0-38.0 [facility] ([facility]) Erythrocyte distribution width [Ratio] by Automated count 14.6 % 11.6-13.7 [facility] ([facility]) MCH 31.5 pg 26.0-32.0 [facility] MPV 8.0 FL 7.8-11.0 [facility] ([facility]) Platelets [#/volume] in Blood by Automated count 282 x10*3/UL 140-440 [facility] ([facility]) Mid % 2.3 % 1.7-9.3 [facility] Neut % 89.4 % 37.0-92.0 [facility] Lymph % 8.3 % 10.0-58.5 [facility] Mid # 0.3 x10*3/UL 0.1-0.6 [facility] ([facility]) Lymph # 1.1 x10*3/UL 0.6-4.1 [facility] ([facility]) Neut # 12.2 x10*3/UL 2.0-7.8 [facility] ([facility]) ID Date Data Source [id number] 07/01/2021 11:21:00 AM EDT [facility] ([facility]) Name Value Range Interpretation Code Description Data Shameka rce(s) Supporting Document(s) Hemoglobin A1c/Hemoglobin.total in Blood Laboratory test result [facility] ([facility]) ID Date Data Source [id number] 06/17/2021 11:03:00 AM EDT [facility]) Name Value Range Interpretation Code Description Data Shameka rce(s) Supporting Document(s) Thyrotropin [Units/volume] in Serum or Plasma by Detec tion limit <= 0.05 mIU/L 2.97 uIU/mL 0.36-3.74 [facility] ) ID Date Data Source [id number] 06/17/2021 11:03:00 AM EDT [facility] ([facility]) Name Value Range Interpretation Code Description Data Shameka rce(s) Supporting Document(s) Glucose [Mass/volume] in Serum or Plasma 149 mg/dL 74-99 [facility] ([facility]) 100-125 mg/dL PRE-DIABETES/FASTING >126 mg/dL DIABETES/FASTING Urea nitrogen [Mass/volume] in Serum or Plasma 27 mg/dL 7-18 [facility] ([facility]) NOTE: BUN,CREAT VERIFIED Creatinine 3.1 mg/dL 0.6-1.3 [facility] Chloride [Moles/volume] in Serum or Plasma 102 meq/L 98-107 [facility] ([facility]) Potassium [Moles/volume] in Serum or Plasma 3.8 meq/L 3.5-5.1 [facility] ([facility]) Sodium [Moles/volume] in Serum or Plasma 140 meq/L 136-145 [facility] ([facility]) Carbon dioxide, total [Moles/volume] in Serum or Plasma 33 meq/L 21 -32 [facility] ([facility]) Calcium [Mass/volume] in Serum or Plasma 9.1 mg/dL 8.5-10.1 [facility] ([facility]) Glomerular filtration rate/1.73 sq M pre dicted among non-blacks [Volume Rate/Area] in Serum or Plasma by Creatinine-based formula (MDRD) 20 mL/min [facility] ([facility]) Glomerular filtration rate/1.73 sq M pre dicted among blacks [Volume Rate/Area] in Serum or Plasma by Creatinine-based formula (MDRD) 24 mL/min [facility] ([facility]) <content>CHRONIC KIDNEY DISEASE STAGING PER NKF</content>
<content></content>
<content>STAGE I & II GFR >= 60 NORMAL TO MILDLY DECREASED</content>
<content>STAGE III GFR 30-59 MODERATELY DECREASED</content>
<content>STAGE IV GFR 15-29 SEVERELY DECREASED</content>
<content>STAGE V GFR <15 VERY LITTLE GFR LEFT</content>
<content>ESRD GFR <15 ON ANNEALING OVEN OPERATOR</content>
<content></content> ID Date Data Source [id number] 06/17/2021 11:03:00 AM EDT [facility] ([facility]) Name Value Range Interpretation Code Description Data Shameka rce(s) Supporting Document(s) Leukocytes [#/volume] in Blood by Automated count 11.2 x10*3/UL 4.1-1 0.9 [facility] ([facility]) CRITICAL: CBC VERIFIED Hematocrit [Volume Fraction] of Blood by Automated count 38.2 % 3 7.0-51.0 [facility] ([facility]) Erythrocytes [#/volume] in Blood by Automated count 4.02 x10*6/UL 4.2 0-6.30 [facility] ([facility]) Hemoglobin [Mass/volume] in Blood 12.6 g/dL 12.0-18.0 [facility] MCH 31.5 pg 26.0-32.0 [facility]) MCV 95.0 fL 80.0-97.0 [facility] MCHC 33.1 g/dL 31.0-38.0 [facility] Platelets [#/volume] in Blood by Automated count 183 x10*3/UL 140-440 [facility] ([facility]) MPV 8.1 FL 7.8-11.0 [facility] Erythrocyte distribution width [Ratio] by Automated count 16.3 % 11.6-13.7 [facility] ([facility]) Mid % 2.7 % 1.7-9.3 [facility] ([facility]) Lymph % 7.0 % 10.0-58.5 [facility] ([facility]) Neut % 90.3 % 37.0-92.0 [facility] ([facility]) Lymph # 0.7 x10*3/UL 0.6-4.1 [facility] ([facility]) Mid # 0.4 x10*3/UL 0.1-0.6 [facility] ([facility]) Neut # 10.1 x10*3/UL 2.0-7.8 [facility] ([facility]) ID Date Data Source [id number] 05/22/2021 10:08:00 PM EDT [facility] ([facility]) Name Value Range Interpretation Code Description Data Shameka rce(s) Supporting Document(s) CPK Creatine Phosphokinase 55 U/L 39-308 [facility] ([facility]) MB/CK Relative Index 5.82 [facility] ([facility]) <content>DIAGNOSIS CRITERIA</content>
<content>MMB ng/ml Relative Index (RI)</content>
<content>NON-AMI < or = 5 N/A</content>
<content>S[place]HER[place] ZONE > 5 < or = 4</content>
<content>AMI > 5 > 4</content>
<content></content> CK-MB Value Mass 3.2 ng/mL [facility] ([facility]) Troponin I 0.13 ng/mL [facility] ([facility]) <content>Troponin I Reference Interval f or Siemens Parowan LOCI:</content>
<content></content>
<content>99th Percentile= 0.00-0.045 ng/ml</content>
<content></content>
<content>Risk Stratification:</content>
<content><= 0.10 ng/ml Decreased Risk for Adverse Clinical</content>
<content>Events.</content>
<content>0.10-1.50 ng/ml Increased Risk for Adverse Clinical</content>
<content>Events. Evaluation of additional</content>
<content>criterion and/or repeat testing in 2-6</content>
<content>hours is suggested to rule out myocardial</content>
<content>damage.</content>
<content>>= 1.50 ng/ml Indicative of Myocardial Injury.</content>
<content></content> ID Date Data Source [id number] 05/22/2021 10:08:00 PM EDT [facility] ([facility]) Name Value Range Interpretation Code Description Data Shameka rce(s) Supporting Document(s) C reactive protein [Mass/volume] in Serum or Plasma by High sensitivity method 10.10 mg/dL 0.00-0.30 [facility] ID Date Data Source [id number] 05/22/2021 08:23:00 PM EDT [facility] Name Value Range Interpretation Code Description Data Shameka rce(s) Supporting Document(s) Influenza A Amplification Laboratory test result [facility] Negative results do not preclude influen za or RSV virus infection and should not be used as the sole basis for treatment or other patient management decisions. Influenza B Amplification Laboratory test result [facility] ([facility]) Negative results do not preclude influen za or RSV virus infection and should not be used as the sole basis for treatment or other patient management decisions. RSV Amplification Laboratory test result [facility] ([facility]) Negative results do not preclude influen za or RSV virus infection and should not be used as the sole basis for treatment or other patient management decisions. Laboratory test finding (navigational concept) Laboratory test result [facility] ([facility]) A false negative result may occur [...] pathogens. DISCLAIMER: Testing was performed using the [employer] SARS-CoV-2 test. This test was developed and its performance characteristics determined by [employer]. This test has not been FDA cleared [...] or revoked sooner. ID Date Data Source [id number] 05/22/2021 08:23:00 PM EDT [facility] Name Value Range Interpretation Code Description Data Shameka rce(s) Supporting Document(s) SARS coronavirus 2 RNA [Presence] in Res piratory specimen by CHRISTOPHER with probe detection NEGATIVE [facility] This lab was ordered by [facility] a nd reported by [facility]. ID Date Data Source [id number] 05/22/2021 07:08:00 PM EDT [facility] ([facility]) Name Value Range Interpretation Code Description Data Shameka rce(s) Supporting Document(s) CPK Creatine Phosphokinase 58 U/L 39-308 [facility] ([facility]) CK-MB Value Mass 3.1 ng/mL [facility] ([facility]) MB/CK Relative Index 5.34 [facility]) <content>DIAGNOSIS CRITERIA</content>
<content>MMB ng/ml Relative Index (RI)</content>
<content>NON-AMI < or = 5 N/A</content>
<content>[place] ZONE > 5 < or = 4</content>
<content>AMI > 5 > 4</content>
<content></content> Troponin I 0.14 ng/mL [facility] ([facility]) <content>Troponin I Reference Interval f or Siemens Par[place]an LOCI:</content>
<content></content>
<content>99th Percentile= 0.00-0.045 ng/ml</content>
<content></content>
<content>Risk Stratification:</content>
<content><= 0.10 ng/ml Decreased Risk for Adverse Clinical</content>
<content>Events.</content>
<content>0.10-1.50 ng/ml Increased Risk for Adverse Clinical</content>
<content>Events. Evaluation of additional</content>
<content>criterion and/or repeat testing in 2-6</content>
<content>hours is suggested to rule out myocardial</content>
<content>damage.</content>
<content>>= 1.50 ng/ml Indicative of Myocardial Injury.</content>
<content></content> ID Date Data Source [id number] 05/22/2021 07:08:00 PM EDT [facility] ([facility]) Name Value Range Interpretation Code Description Data Shameka rce(s) Supporting Document(s) Glucose, Fasting 94 mg/dL 70-100 [facility] ([facility]) Creatinine For GFR 4.03 mg/dL 0.70-1.30 [facility] ([facility]) Blood Urea Nitrogen 28 mg/dL 7-18 [facility] ([facility]) Glomerular Filtration Rate 15.4 [facility] ([facility]) <content>Units are mL/min/1.73 m2</content>
<content></content>
<content>Chronic Kidney Disease Staging per NKF:</content>
<content></content>
<content>Stage I & II GFR >=60 Normal to Mildly Decreased</content>
<content>Stage III GFR 30- 59 Moderately Decreased</content>
<content>Stage IV GFR 15-29 Severely Decreased</content>
<content>Stage V GFR <15 Very Little GFR Left</content>
<content>ESRD GFR <15 on ANNEALING OVEN OPERATOR</content>
<content></content> Sodium Level 141 meq/L 136-145 [facility] ([facility]) Chloride Level 102 meq/L 98-107 [facility] ([facility]) Potassium Serum 3.8 meq/L 3.5-5.1 [facility] ([facility]) Carbon Dioxide Level 29 meq/L 21-32 [facility] ([facility]) Anion Gap 10 meq/L 8-16 [facility] ([facility]) Calcium Level 7.9 mg/dL 8.8-10.2 [facility] ([facility]) ID Date Data Source [id number] 05/22/2021 07:08:00 PM EDT [facility] Name Value Range Interpretation Code Description Data Shameka rce(s) Supporting Document(s) Ast/Sgot 29 U/L 7-37 [facility] ([facility]) Alt/SGPT 53 U/L 12-78 [facility] ([facility]) Alkaline Phosphatase 131 U/L 45-117 [facility] ([facility]) Bilirubin,Total 0.4 mg/dL 0.2-1.0 [facility] ([facility]) Albumin 2.6 GM/DL 3.2-5.2 [facility] ([facility]) Bilirubin,Direct 0.2 mg/dL 0.0-0.2 [facility] Total Protein 5.8 GM/DL 6.4-8.2 [facility] ([facility]) Albumin/Globulin Ratio 0.8 [facility] ID Date Data Source [id number] 05/22/2021 07:08:00 PM EDT [facility] Name Value Range Interpretation Code Description Data Shameka rce(s) Supporting Document(s) Thyrotropin [Units/volume] in Serum or Plasma by Detec tion limit <= 0.05 mIU/L 1.940 uIU/ML 0.358-3.740 [facility] ([facility] ) Thyroxine (T4) free [Mass/volume] in Serum or Plasma 0.90 ng/dL 0.76- 1.46 [facility] ([facility]) ID Date Data Source [id number] 05/22/2021 07:08:00 PM EDT [facility] ([facility]) Name Value Range Interpretation Code Description Data Shameka rce(s) Supporting Document(s) White Blood Count 8.4 10 4.0-10.0 [facility] ([facility]) Hematocrit 33.7 % 42.0-52.0 [facility] ([facility]) Red Blood Count 3.35 10 4.30-6.10 [facility] ([facility]) Hemoglobin 10.8 g/dL 13.5-17.5 [facility] ([facility]) Mean Corpuscular Hemoglobin 32.2 pg 27.0-33.0 [facility] ([facility]) Mean Corpuscular Volume 100.6 fl 80.0-96.0 [facility] ([facility]) Red Cell Distribution Width 15.8 % 11.5-14.5 [facility] ([facility]) Mean Corpuscular HGB Conc 32.0 g/dL 32.0-36.5 [facility] ([facility]) Nucleated Red Blood Cell % 0.2 % 0-0 [facility] ([facility]) Platelet Count, Automated 127 10 150-450 [facility] ([facility]) ID Date Data Source [id number] 05/22/2021 07:08:00 PM EDT [facility] ([facility]) Name Value Range Interpretation Code Description Data Shameka rce(s) Supporting Document(s) Bands 12 % [facility]) Neutrophils 64 % 28-66 [facility] ([facility]) Lymphocytes 11 % 16-44 [facility] ([facility]) Monocytes 9 % 0-5 [facility]) Metamyelocytes 1 % 0-0 [facility] ([facility]) Basophils 1 % 0-1 [facility]) Myelocytes 2 % 0-0 [facility] ID Date Data Source [id number] 05/22/2021 07:08:00 PM EDT [facility] ([facility]) Name Value Range Interpretation Code Description Data Shameka rce(s) Supporting Document(s) Platelets [#/volume] in Blood by Estimate Laboratory test result [facility]) ID Date Data Source [id number] 05/18/2021 01:03:00 PM EDT [facility] Name Value Range Interpretation Code Description Data Shameka rce(s) Supporting Document(s) SARS coronavirus 2 RNA [Presence] in Res piratory specimen by CHRISTOPHER with probe detection NEGATIVE [facility] This lab was ordered by [facility] a nd reported by [facility]. ID Date Data Source [id number] 05/07/2021 04:05:00 PM EDT [facility] ([facility]) Name Value Range Interpretation Code Description Data Shameka rce(s) Supporting Document(s) Laboratory test finding (navigational concept) 0.10 ng/mL 0.00-0.08 [facility] ID Date Data Source [id number] 05/07/2021 03:51:00 PM EDT [facility] ([facility]) Name Value Range Interpretation Code Description Data Shameka rce(s) Supporting Document(s) Laboratory test finding (navigational concept) 33.0 % 38.0-51.0 [facility] ([facility]) Laboratory test finding (navigational concept) 89 mg/dL 70-105 [facility] ([facility]) Laboratory test finding (navigational concept) 140 meq/L 136-145 [facility] ([facility]) Laboratory test finding (navigational concept) 3.9 meq/L 3.5-5.1 [facility] ([facility]) Laboratory test finding (navigational concept) 4.2 mg/dL 4.5-5.3 [facility] ([facility]) Laboratory test finding (navigational concept) 100 meq/L 98-109 [facility] ([facility]) Laboratory test finding (navigational concept) 24.0 MM/L 23.0-27.0 [facility] ([facility]) Laboratory test finding (navigational concept) 41 mg/dL 8-26 [facility] ([facility]) Laboratory test finding (navigational concept) 4.4 mg/dL 0.6-1.3 [facility] ([facility]) ID Date Data Source [id number] 05/07/2021 03:22:00 PM EDT [facility] ([facility]) Name Value Range Interpretation Code Description Data Shameka rce(s) Supporting Document(s) Thyrotropin [Units/volume] in Serum or Plasma by Detec tion limit <= 0.05 mIU/L 0.505 uIU/ML 0.358-3.740 [facility] ID Date Data Source [id number] 05/07/2021 03:22:00 PM EDT [facility] Name Value Range Interpretation Code Description Data Shameka rce(s) Supporting Document(s) Blood Urea Nitrogen 41 mg/dL 7-18 [facility] ([facility]) Creatinine For GFR 4.06 mg/dL 0.70-1.30 [facility] ([facility]) Glucose, Fasting 90 mg/dL 70-100 [facility] ([facility]) Sodium Level 140 meq/L 136-145 [facility] ([facility]) Glomerular Filtration Rate 15.3 [facility] ([facility]) <content>Units are mL/min/1.73 m2</content>
<content></content>
<content>Chronic Kidney Disease Staging per NKF:</content>
<content></content>
<content>Stage I & II GFR >=60 Normal to Mildly Decreased</content>
<content>Stage III GFR 30- 59 Moderately Decreased</content>
<content>Stage IV GFR 15-29 Severely Decreased</content>
<content>Stage V GFR <15 Very Little GFR Left</content>
<content>ESRD GFR <15 on ANNEALING OVEN OPERATOR</content>
<content></content> Chloride Level 106 meq/L 98-107 [facility] ([facility]) Potassium Serum 3.9 meq/L 3.5-5.1 [facility] ([facility]) Anion Gap 7 meq/L 8-16 [facility] ([facility]) Carbon Dioxide Level 27 meq/L 21-32 [facility] ([facility]) Calcium Level 7.4 mg/dL 8.8-10.2 [facility] ([facility]) ID Date Data Source [id number] 05/07/2021 03:22:00 PM EDT [facility] ([facility]) Name Value Range Interpretation Code Description Data Shameka rce(s) Supporting Document(s) Ast/Sgot 70 U/L 7-37 [facility] ([facility]) Bilirubin,Total 0.5 mg/dL 0.2-1.0 [facility] ([facility]) Alkaline Phosphatase 84 U/L 45-117 [facility] ([facility]) Alt/SGPT 69 U/L 12-78 [facility] ([facility]) Bilirubin,Direct 0.2 mg/dL 0.0-0.2 [facility] ([facility]) Total Protein 5.3 GM/DL 6.4-8.2 [facility] ([facility]) Albumin/Globulin Ratio 0.8 [facility] ([facility]) Albumin 2.4 GM/DL 3.2-5.2 [facility] ([facility]) ID Date Data Source [id number] 05/07/2021 03:22:00 PM EDT [facility] ([facility]) Name Value Range Interpretation Code Description Data Shameka rce(s) Supporting Document(s) Ammonia [Mass/volume] in Blood Laboratory test result [facility] ([facility]) ID Date Data Source [id number] 05/07/2021 03:22:00 PM EDT [facility] ([facility]) Name Value Range Interpretation Code Description Data Shameka rce(s) Supporting Document(s) Red Blood Count 3.49 10 4.30-6.10 [facility] ([facility]) White Blood Count 6.9 10 4.0-10.0 [facility] ([facility]) Hemoglobin 11.0 g/dL 13.5-17.5 [facility] ([facility]) Hematocrit 34.2 % 42.0-52.0 [facility] Mean Corpuscular Volume 98.0 fl 80.0-96.0 [facility] ([facility]) Mean Corpuscular HGB Conc 32.2 g/dL 32.0-36.5 [facility] ([facility]) Mean Corpuscular Hemoglobin 31.5 pg 27.0-33.0 [facility] ([facility]) Red Cell Distribution Width 13.3 % 11.5-14.5 [facility] ([facility]) Neutrophils % 82.7 % 36.0-66.0 [facility] ([facility]) Platelet Count, Automated 108 10 150-450 [facility] ([facility]) Cloud % 5.1 % 2.0-8.0 [facility]) Lymph % 5.7 % 24.0-44.0 [facility]) Baso % 0.3 % 0.0-1.0 [facility]) Eos % 3.6 % 0.0-3.0 [facility]) Immature Granulocyte % 2.6 % 0-3.0 [facility] ([facility]) Nucleated Red Blood Cell % 0.0 % 0-0 [facility] ([facility]) Neutrophils # 5.7 10 1.5-8.5 [facility] ([facility]) Lymph # 0.4 10 1.5-5.0 [facility]) Cloud # 0.4 10 0.0-0.8 [facility]) Eos # 0.3 10 0.0-0.5 [facility]) Baso # 0.0 10 0.0-0.2 [facility]) ID Date Data Source [id number] 05/07/2021 01:54:00 PM EDT [facility] ([facility]) Name Value Range Interpretation Code Description Data Shameka rce(s) Supporting Document(s) Influenza A Amplification Laboratory test result [facility] ([facility]) Negative results do not preclude influen za or RSV virus infection and should not be used as the sole basis for treatment or other patient management decisions. RSV Amplification Laboratory test result [facility] ([facility]) Negative results do not preclude influen za or RSV virus infection and should not be used as the sole basis for treatment or other patient management decisions. Influenza B Amplification Laboratory test [facility] Negative results do not preclude influen za or RSV virus infection and should not be used as the sole basis for treatment or other patient management decisions. Laboratory test finding (navigational concept) Laboratory test result [facility] A false negative result may occur if [...] pathogens. DISCLAIMER: Testing was performed using the [employer] SARS-CoV-2 test. This test was developed and its performance characteristics determined by [employer]. This test has not been FDA cleared [...] or revoked sooner. ID Date Data Source [id number] 05/07/2021 01:54:00 PM EDT [facility] Name Value Range Interpretation Code Description Data Shameka rce(s) Supporting Document(s) SARS coronavirus 2 RNA [Presence] in Res piratory specimen by CHRISTOPHER with probe detection NEGATIVE [facility] This lab was ordered by [facility] a nd reported by [facility]. ID Date Data Source [id number] 04/27/2021 08:48:00 PM EDT [facility] ([facility]) Name Value Range Interpretation Code Description Data Shameka rce(s) Supporting Document(s) CPK Creatine Phosphokinase 850 U/L 39-308 [facility] ([facility]) MB/CK Relative Index 0.91 [facility] ([facility]) <content>DIAGNOSIS CRITERIA</content>
<content>MMB ng/ml Relative Index (RI)</content>
<content>NON-AMI < or = 5 N/A</content>
<content>S[place]HER[place] ZONE > 5 < or = 4</content>
<content>AMI > 5 > 4</content>
<content></content> CK-MB Value Mass 7.7 ng/mL [facility] ([facility]) Troponin I 1.15 ng/mL [facility] ([facility]) <content>Troponin I Reference Interval f or Siemens [place] LOCI:</content>
<content></content>
<content>99th Percentile= 0.00-0.045 ng/ml</content>
<content></content>
<content>Risk Stratification:</content>
<content><= 0.10 ng/ml Decreased Risk for Adverse Clinical</content>
<content>Events.</content>
<content>0.10-1.50 ng/ml Increased Risk for Adverse Clinical</content>
<content>Events. Evaluation of additional</content>
<content>criterion and/or repeat testing in 2-6</content>
<content>hours is suggested to rule out myocardial</content>
<content>damage.</content>
<content>>= 1.50 ng/ml Indicative of Myocardial Injury.</content>
<content></content> ID Date Data Source [id number] 04/27/2021 05:48:00 PM EDT [facility] Name Value Range Interpretation Code Description Data [facility](s) Supporting Document(s) SARS coronavirus 2 RNA [Presence] in Res piratory specimen by CHRISTOPHER with probe detection NEGATIVE [facility] This lab was ordered by [facility] a nd reported by [facility]. ID Date Data Source [id number] 04/01/2021 01:04:00 PM EDT [facility] ([facility]) Name Value Range Interpretation Code Description Data Shameka rce(s) Supporting Document(s) Prothrombin Time 13.7 s 12.5-14.3 [facility] ([facility]) Inr 1.03 [facility] ([facility] THERAPUTIC HUMAN INR VALUES INDICATIONS NORMAL RANGES PROPHYLAXIS/TREATMENT OF: VENOUS THROMBOSIS 2.0-3.0 PULMONARY EMBOLISM 2.0-3.0 PREVENTION OF SYSTEMIC EMBOLISM FROM: TISSUE HEART VALVES 2.0-3.0 ACUTE MYOCARDIAL INFARCTION 2.0-3.0 VALVULAR HEART DISEASE 2.0-3.0 ATRIAL FIBRILLATION 2.0-3.0 MECHANICAL VALVES(HIGH RISK) 2.5-3.5 RECURRENT MYOCARDIAL INFARCTION 2.5-3.5 ID Date Data Source [id number] 04/01/2021 01:04:00 PM EDT [facility] ([facility]) Name Value Range Interpretation Code Description Data [facility] rce(s) Supporting Document(s) Red Blood Count 3.76 10 4.30-6.10 [facility] ([facility]) White Blood Count 9.4 10 4.0-10.0 [facility] ([facility]) Mean Corpuscular Volume 98.7 fl 80.0-96.0 [facility] ([facility]) Hematocrit 37.1 % 42.0-52.0 [facility] Hemoglobin 11.9 g/dL 13.5-17.5 [facility] Mean Corpuscular Hemoglobin 31.6 pg 27.0-33.0 ID [facility] ([facility]) Red Cell Distribution Width 12.9 % 11.5-14.5 [facility] ([facility]) Mean Corpuscular HGB Conc 32.1 g/dL 32.0-36.5 [facility] ([facility]) Nucleated Red Blood Cell % 0.0 % 0-0 [facility] ([facility]) Platelet Count, Automated 193 10 150-450 [facility] ([facility]) ID Date Data Source [id number] 08/12/2020 11:22:00 AM EDT [facility] ([facility] Name Value Range Interpretation Code Description Data Shameka rce(s) Supporting Document(s) Laboratory test finding (navigational concept) 2888.3 mg/L 1.3-20.0 [facility] ([facility]) NOTE: DILUTED AND VERIFIED Urine Creatinine 372.9 mg/dL 30.0-125.0 [facility] Microalb/Creat Ratio 774.6 ug/mg 0.0-30.0 [facility] ([facility]) ID Date Data Source [id number] 08/12/2020 11:22:00 AM EDT [facility] ([facility] ID Date Data Source [id number] 08/12/2020 11:22:00 AM EDT [facility] ([facility] [...] 138 meq/L 136-145 [facility] ([facility]) Calcium [Mass/volume] in Serum or Plasma 9.0 mg/dL 8.5-10.1 [facility] ([facility] Chloride [Moles/volume] in Serum or Plasma 102 meq/L 98-107 [facility] ([facility] Carbon dioxide, total [Moles/volume] in Serum or Plasma 27 meq/L 21 -32 [facility] ([facility] Alanine aminotransferase [Enzymatic activity/volume] in Seru m or Plasma 48 U/L 12-78 [facility] ([facility] ) Total Bilirubin 0.8 mg/dL 0.2-1.0 [facility] Aspartate aminotransferase [Enzymatic activity/volume] in Serum or Plasma 67 U/L 15-37 [facility] ([facility]) Alkaline phosphatase isoenzyme [Units/volume] in Serum or Pl asma 83 mg/dL 46-116 [facility] ([facility] ) Albumin/Globulin [Mass Ratio] in Serum or Plasma 0.81 CALC 1.00-1.90 [facility] ([facility]) Proteinase 3 Ab [Units/volume] in Serum 7.8 g/dL 6.4-8.2 [facility] ([facility]) Albumin [Mass/volume] in Serum or Plasma 3.5 g/dL 3.4-5.0 [facility] ([facility] Glomerular filtration rate/1.73 sq M pre dicted among non-blacks [Volume Rate/Area] in Serum or Plasma by Creatinine-based formula (MDRD) 42 mL/min [facility] ([facility]) Glomerular filtration rate/1.73 sq M pre [...] LITTLE GFR LEFT</content>
<content>ESRD GFR <15 ON ANNEALING OVEN OPERATOR</content>
<content></content>
<content></content> ID Date Data Source [id number] 08/12/2020 11:22:00 AM EDT [facility] ([facility]) Name Value Range Interpretation Code Description Data Shameka rce(s) Supporting Document(s) Glucose mean value [Mass/volume] in Blood Estimated fr om glycated hemoglobin 131 mg/dL 60-110 [facility] ([facility]) Hemoglobin A1c/Hemoglobin.total in Blood 6.2 % [facility] ([facility]) Lab Result Notes: Pre-Diabetes 5.7 - 6.4 % Diabetes = or > 6.5% ID Date Data Source [id number] 08/12/2020 11:22:00 AM EDT [facility] ([facility]) Name Value Range Interpretation Code Description Data Shameka rce(s) Supporting Document(s) Hematocrit [Volume Fraction] of Blood by Automated count 44.5 % 3 7.0-51.0 [facility] ([facility]) Erythrocytes [#/volume] in Blood by Automated count 4.85 x10*6/UL 4.2 0-6.30 [facility] ([facility]) Hemoglobin [Mass/volume] in Blood 15.6 g/dL 12.0-18.0 [facility] ([facility]) Leukocytes [#/volume] in Blood by Automated count 8.7 x10*3/UL 4.1-10 .9 [facility] ([facility]) MCHC 35.1 g/dL 31.0-38.0 [facility] MCV 91.7 fL 80.0-97.0 [facility] ([facility]) MCH 32.2 pg 26.0-32.0 [facility] Platelet mean volume [Entitic volume] in Blood by Sussy 8.2 FL 7.8-11.0 [facility] ([facility]) Platelets [#/volume] in Blood by Automated count 222 x10*3/UL 140-440 [facility] ([facility]) Lymphocytes/100 leukocytes in Blood by Automated count 7.5 % 10. 0-58.5 [facility] ([facility]) Erythrocyte distribution width [Ratio] by Automated count 13.4 % 11.6-13.7 [facility] ([facility]) Neut % 85.1 % 37.0-92.0 [facility] ([facility]) Lymph # 0.6 x10*3/UL 0.6-4.1 [facility] ([facility]) Mid # 0.7 x10*3/UL 0.1-0.6 [facility] ([facility]) Mid % 7.4 % 1.7-9.3 [facility] ([facility]) Neutrophils [#/volume] in Semen by Manual count 7.4 x10*3/UL 2.0-7.8 [facility] ([facility]) ID Date Data Source [id number] 08/12/2020 11:22:00 AM EDT [facility] Name Value Range Interpretation Code Description Data Shameka rce(s) Supporting Document(s) Prostate specific Ag [Mass/volume] in Serum or Plasma 0.20 ng/mL [facility] This assay was performed on the Siemens Dimension EXL using the B- Galactosidase/CPRG methodology and should not be compared interchangeably with other methods. The PSA should not be used alone as a screening test for the presence or absence of malignant disease. ID Date Data Source [id number] 08/12/2020 11:22:00 AM EDT [facility] ([facility]) Name Value Range Interpretation Code Description Data Shameka rce(s) Supporting Document(s) Thyrotropin [Units/volume] in Serum or Plasma by Detec tion limit <= 0.05 mIU/L 0.61 uIU/mL 0.36-3.74 [facility] ID Date Data Source [id number] 08/12/2020 11:22:00 AM EDT [facility] Name Value Range Interpretation Code Description Data Shameka rce(s) Supporting Document(s) Microalbumin Urine 2888.3 mg/L 1.3-20.0 [facility] ([facility]) NOTE: DILUTED AND VERIFIED Urine Creatinine 372.9 mg/dL 30.0-125.0 [facility] ([facility]) Microalb/Creat Ratio 774.6 ug/mg 0.0-30.0 [facility] ([facility]) ID Date Data Source [id number] 08/12/2020 11:22:00 AM EDT [facility] Name Value Range Interpretation Code Description Data Shameka rce(s) Supporting Document(s) Cholesterol [Mass/volume] in Serum or Plasma 165 mg/dL 131-200 [facility] ([facility]) Triglyceride [Mass/volume] in Serum or Plasma 115 mg/dL 30-150 [facility] ([facility]) Cholesterol in HDL [Mass/volume] in Serum or Plasma 52 mg/dL 35-60 [facility] ([facility]) Cholesterol in LDL [Mass/volume] in Serum or Plasma by calcu lation 90 CALC 50-159 [facility] ID Date Data Source [id number] 08/12/2020 11:22:00 AM EDT [facility]) Name Value Range Interpretation Code Description Data Shameka rce(s) Supporting Document(s) Glucose [Mass/volume] in Serum or Plasma 125 mg/dL 74-99 [facility] ([facility]) 100-125 mg/dL PRE-DIABETES/FASTING >126 mg/dL DIABETES/FASTING Creatinine 1.6 mg/dL 0.6-1.3 [facility] ([facility] Urea nitrogen [Mass/volume] in Serum or Plasma 19 mg/dL 7-18 [facility] ([facility]) Potassium [Moles/volume] in Serum or Plasma 4.5 meq/L 3.5-5.1 [facility] ([facility]) Chloride [Moles/volume] in Serum or Plasma 102 meq/L 98-107 [facility] ([facility]) Sodium [Moles/volume] in Serum or Plasma 138 meq/L 136-145 [facility] ([facility]) Total Bilirubin 0.8 mg/dL 0.2-1.0 [facility] ([facility]) Alkaline phosphatase isoenzyme [Units/volume] in Serum or Pl asma 83 mg/dL 46-116 [facility] ([facility]) Calcium [Mass/volume] in Serum or Plasma 9.0 mg/dL 8.5-10.1 [facility] ([facility]) Carbon dioxide, total [Moles/volume] in Serum or Plasma 27 meq/L 21 -32 [facility] ([facility]) Aspartate aminotransferase [Enzymatic activity/volume] in Serum or Plasma 67 U/L 15-37 [facility] ([facility] ) Alanine aminotransferase [Enzymatic activity/volume] in Seru m or Plasma 48 U/L 12-78 [facility] ([facility]) Albumin [Mass/volume] in Serum or Plasma 3.5 g/dL 3.4-5.0 [facility] ([facility]) A/G Ratio 0.81 CALC 1.00-1.90 [facility] ([facility]) Proteinase 3 Ab [Units/volume] in Serum 7.8 g/dL 6.4-8.2 [facility] ([facility]) Glomerular filtration rate/1.73 sq M pre dicted among non-blacks [Volume Rate/Area] in Serum or Plasma by Creatinine-based formula (MDRD) 42 mL/min [facility] ([facility]) Glomerular filtration rate/1.73 sq M pre dicted among blacks [Volume Rate/Area] in Serum or Plasma by Creatinine-based formula (MDRD) 51 mL/min [facility] <content>CHRONIC KIDNEY DISEASE STAGING PER NKF</content>
<content></content>
<content>STAGE I & II GFR >= 60 NORMAL TO MILDLY DECREASED</content>
<content>STAGE III GFR 30-59 MODERATELY DECREASED</content>
<content>STAGE IV GFR 15-29 SEVERELY DECREASED</content>
<content>STAGE V GFR <15 VERY LITTLE GFR LEFT</content>
<content>ESRD GFR <15 ON ANNEALING OVEN OPERATOR</content>
<content></content> ID Date Data Source [id number] 08/12/2020 11:22:00 AM EDT [facility] ([facility]) Name Value Range Interpretation Code Description Data Shameka rce(s) Supporting Document(s) Hemoglobin A1c/Hemoglobin.total in Blood 6.2 % [facility] Lab Result Notes: Pre-Diabetes 5.7 - 6.4 % Diabetes = or > 6.5% Glucose mean value [Mass/volume] in Blood Estimated fr om glycated hemoglobin 131 mg/dL 60-110 [facility] ID Date Data Source [id number] 08/12/2020 11:22:00 AM EDT [facility] ([facility]) Name Value Range Interpretation Code Description Data Shameka rce(s) Supporting Document(s) Erythrocytes [#/volume] in Blood by Automated count 4.85 x10*6/UL 4.2 0-6.30 [facility] Leukocytes [#/volume] in Blood by Automated count 8.7 x10*3/UL 4.1-10 .9 [facility] MCV 91.7 fL 80.0-97.0 [facility]) MCH 32.2 pg 26.0-32.0 [facility] ([facility]) Hematocrit [Volume Fraction] of Blood by Automated count 44.5 % 3 7.0-51.0 [facility] Hemoglobin [Mass/volume] in Blood 15.6 g/dL 12.0-18.0 [facility] MCHC 35.1 g/dL 31.0-38.0 [facility] ([facility]) Platelets [#/volume] in Blood by Automated count 222 x10*3/UL 140-440 [facility] Erythrocyte distribution width [Ratio] by Automated count 13.4 % 11.6-13.7 [facility] ([facility]) MPV 8.2 FL 7.8-11.0 [facility]) Mid % 7.4 % 1.7-9.3 [facility]) Lymph % 7.5 % 10.0-58.5 [facility] Neut % 85.1 % 37.0-92.0 [facility]) Lymph # 0.6 x10*3/UL 0.6-4.1 [facility] ([facility]) Neut # 7.4 x10*3/UL 2.0-7.8 [facility] ([facility]) Mid # 0.7 x10*3/UL 0.1-0.6 [facility] ([facility]) Procedure Social History Code Duration Value Status Description Data Source(s ) Alcohol intake 08/28/2021 12:00:00 AM EDT Current drinker of al cohol (finding) completed Current drinker of alcohol (finding) [facility] Smoking 09/09/2020 12:00:00 AM EDT Patient is a former smoker completed Patient is a former smoker [facility] ([facility]) Vital Signs ID Date Data Source UNK Name Value Range Interpretation Code Description Data Source(s) Systolic blood pressure 120 mm[Hg] 120 mm[Hg] [facility] ([facility]) Diastolic blood pressure 76 mm[Hg] 76 mm[Hg] [facility] Body height 68 [in_i] 68 [in_i] [facility] ([facility]) 5'8" Body weight 134.00 [lb_av] 134.00 [lb_av] [facility] ([facility]) Body mass index (BMI) [Ratio] 20.4 kg/m2 20.4 k g/m2 [facility] ([facility]) Systolic blood pressure 100 mm[Hg] 100 mm[Hg] [facility] Diastolic blood pressure 60 mm[Hg] 60 mm[Hg] [facility] Heart rate 89 /min 89 /min [facility] Body height 177.8 cm 177.8 cm [facility] Body weight 65.772 kg 65.772 kg [facility] Body mass index (BMI) [Ratio] 20.81 kg/m2 20.81 kg/m2 [facility] Oxygen saturation in Arterial blood by Pulse oximetry 97 % 97 % [facility] Systolic blood pressure 110 mm[Hg] 110 mm[Hg] [facility] ([facility]) Diastolic blood pressure 74 mm[Hg] 74 mm[Hg] [facility] Heart rate 56 /min 56 /min [facility] Body height 68 [in_i] 68 [in_i] [facility] ([facility]) 5'8" Body weight 154.00 [lb_av] 154.00 [lb_av] [facility] ([facility]) Oxygen saturation in Arterial blood by Pulse oximetry 97 % 97 % [facility] ([facility]) Air Body mass index (BMI) [Ratio] 23.4 kg/m2 23.4 k g/m2 [facility] Body mass index (BMI) [Ratio] 23.9 kg/m2 23.9 k g/m2 [facility] ([facility]) Systolic blood pressure 112 mm[Hg] 112 mm[Hg] [facility] ([facility]) Body height 68 [in_i] 68 [in_i] [facility] ([facility]) 5'8" Body weight 157.00 [lb_av] 157.00 [lb_av] [facility] ([facility]) Diastolic blood pressure 76 mm[Hg] 76 mm[Hg] [facility] ([facility]) Heart rate 80 /min 80 /min [facility] ([facility]) Systolic blood pressure 102 mm[Hg] 102 mm[Hg] [facility] ([facility]) Diastolic blood pressure 50 mm[Hg] 50 mm[Hg] [facility] Body weight 157.00 [lb_av] 157.00 [lb_av] [facility] ([facility]) Heart rate 62 /min 62 /min [facility] Body height 68 [in_i] 68 [in_i] [facility] ([facility]) 5'8" Body mass index (BMI) [Ratio] 23.9 kg/m2 23.9 k g/m2 [facility] ([facility]) Systolic blood pressure 128 mm[Hg] 128 mm[Hg] [facility] Body height 68 [in_i] 68 [in_i] [facility] 5'8" Body weight 181.00 [lb_av] 181.00 [lb_av] [facility] ([facility] Diastolic blood pressure 66 mm[Hg] 66 mm[Hg] [facility] Heart rate 59 /min 59 /min [facility] ([facility] Body mass index (BMI) [Ratio] 27.5 kg/m2 27.5 k g/m2 [facility] ([facility] Systolic blood pressure 120 mm[Hg] 120 mm[Hg] M [facility] ([facility]) Diastolic blood pressure 80 mm[Hg] 80 mm[Hg] [facility] ([facility]) Heart rate 78 /min 78 /min [facility] Body height 69 [in_i] 69 [in_i] [facility] 5'9" Body weight 180.00 [lb_av] 180.00 [lb_av] [facility] ([facility]) Body weight 81.648 kg 81.648 kg [facility] Body mass index (BMI) [Ratio] 26.6 kg/m2 26.6 k g/m2 [facility] ([facility]) Systolic blood pressure 120 mm[Hg] 120 mm[Hg] [facility] ([facility]) Diastolic blood pressure 80 mm[Hg] 80 mm[Hg] [facility] ([facility]) Systolic blood pressure 118 mm[Hg] 118 mm[Hg] [facility] ([facility]) Diastolic blood pressure 72 mm[Hg] 72 mm[Hg] [facility] ([facility]) Heart rate 70 /min 70 /min [facility] ([facility]) Body height 68 [in_i] 68 [in_i] [facility] ([facility]) 5'8" Body weight 187.00 [lb_av] 187.00 [lb_av] [facility] ([facility]) Body mass index (BMI) [Ratio] 28.4 kg/m2 28.4 k g/m2 [facility] ([facility]) Patient Treatment Plan of Care Planned Activity Planned Date Details Description Data Source (s) midodrine hydrochloride 2.5 MG Oral Tablet 08/28/2021 12:00:00 AM E DT [facility] albuterol (PROVENTIL HFA;VENTOLIN HFA) 108 (90 Base) M CG/ACT inhaler 08/13/2021 12:00:00 AM EDT [facility] Acetaminophen 325 MG Oral Tablet 08/13/2021 12:00:00 AM EDT [facility] Finasteride 5 MG Oral Tablet 07/14/2021 12:00:00 AM EDT [facility] Ergocalciferol [id number] UNT Oral Capsule 07/07/2021 12:00:00 AM EDT [facility] Levothyroxine Sodium 0.088 MG Oral Tablet 06/18/2021 12:00:00 AM ED T [facility] gabapentin 100 MG Oral Capsule 06/18/2021 12:00:00 AM EDT [facility] Folic Acid 1 MG Oral Tablet 06/18/2021 12:00:00 AM EDT [facility] Vitamin B 12 0.5 MG Oral Tablet 06/18/2021 12:00:00 AM EDT [facility] atorvastatin 20 MG Oral Tablet 06/18/2021 12:00:00 AM EDT [facility] apixaban 2.5 MG Oral Tablet 06/18/2021 12:00:00 AM EDT [facility] Metoprolol Tartrate 25 MG Oral Tablet 06/12/2021 12:00:00 AM EDT [facility] 24 HR metoprolol succinate 100 MG Extended Release Ora l Tablet 05/19/2020 12:00:00 AM EDT [facility] Lovastatin 40 MG Oral Tablet 07/28/2018 12:00:00 AM EDT [facility] rivaroxaban 15 MG Oral Tablet 05/31/2014 12:00:00 AM EDT [facility] Levothyroxine Sodium 0.088 MG Oral Tablet [facility]
--- NOTE | 2021-09-14 17:37 | REPVR ---
PROCEDURE INFORMATION: Exam: CT Head Without Contrast Exam date and time: 09/14/2021 5:15 PM Age: 76 years old Clinical indication: Syncope and collapse TECHNIQUE: Imaging protocol: Computed tomography of the head without contrast. Radiation optimization: All CT scans at this facility use at least one of these dose optimization techniques: automated exposure control; mA and/or kV adjustment per patient size (includes targeted exams where dose is matched to clinical indication); or iterative reconstruction. COMPARISON: CT Head without contrast 09/03/2021 12:04 PM FINDINGS: Brain: Nonspecific hypodensities of the periventricular and deep subcortical white matter, most likely secondary to chronic small vessel ischemic change. No intracranial hemorrhage or extra-axial fluid collection. No evidence of mass effect or midline shift. Whittington-white matter differentiation is normal. Cerebral ventricles: Moderate prominence of the ventricles disproportionate to the sulci, most likely reflecting predominantly central parenchymal volume loss versus chronic hydrocephalus. Paranasal sinuses: Visualized sinuses are unremarkable. No fluid levels. Mastoid air cells: Unremarkable. Bones/joints: No acute osseus lesion or fracture. Soft tissues: Unremarkable. IMPRESSION: 1. No acute intracranial pathology. 2. Chronic findings, as above. Electronically signed by: Emerson Jauregui On 09/14/2021 17:37:15 PM
--- NOTE | 2021-09-14 17:38 | REPVR ---
PROCEDURE INFORMATION: Exam: CT Cervical Spine Without Contrast Exam date and time: 09/14/2021 5:15 PM Age: 76 years old Clinical indication: Other: Syncope TECHNIQUE: Imaging protocol: Computed tomography images of the cervical spine without contrast. Radiation optimization: All CT scans at this facility use at least one of these dose optimization techniques: automated exposure control; mA and/or kV adjustment per patient size (includes targeted exams where dose is matched to clinical indication); or iterative reconstruction. COMPARISON: CT Spine,cervical w/o contrast 05/22/2021 6:56 PM FINDINGS: Bones/joints: Vertebral body heights are maintained. No locked or perched facets. Multilevel facet arthropathy. No acute cervical spine fracture. The dens is intact. Atlanto-axial intervals are normal. Discs/Spinal canal/Neural foramina: Multilevel degenerative changes with intervertebral disc height loss and osteophyte formation. No significant spinal stenosis. Lungs: Centrilobular emphysematous changes of the lungs. Soft tissues: Unremarkable. IMPRESSION: No acute findings in the cervical spine. Electronically signed by: Emerson Jauregui On 09/14/2021 17:38:32 PM
[2021-09-14 17:53] LABS: BASO # 0.1 10^3/uL (0.0-0.2); BASO % 0.7 % (0.0-1.0); EOS # 0.2 10^3/uL (0.0-0.5); EOS % 1.7 % (0.0-3.0); HEMATOCRIT 30.9 % (42.0-52.0); HEMOGLOBIN 10.3 g/dl (13.5-17.5); LYMPH # 1.1 10^3/uL (1.5-5.0); LYMPH % 9.3 % (24.0-44.0); MEAN CORPUSCULAR HEMOGLOBIN 30.8 pg (27.0-33.0); MEAN CORPUSCULAR HGB CONC 33.3 g/dl (32.0-36.5); MEAN CORPUSCULAR VOLUME 92.5 fl (80.0-96.0); MONO # 1.3 10^3/uL (0.0-0.8); MONO % 10.8 % (2.0-8.0); NEUTROPHILS # 9.2 10^3/uL (1.5-8.5); NEUTROPHILS % 76.3 % (36.0-66.0); PLATELET COUNT, AUTOMATED 199 10^3/uL (150-450); RED BLOOD COUNT 3.34 10^6/uL (4.30-6.10); WHITE BLOOD COUNT 12.1 10^3/uL (4.0-10.0)
--- NOTE | 2021-09-14 18:15 | REP ---
INDICATION: trauma; fall. COMPARISON: Chest 09/03/2021. TECHNIQUE: Four views left ribs, frontal view chest. FINDINGS: No left rib fracture or bone lesion is seen. There is stable cardiomegaly. The mediastinal silhouette is unchanged. There is some calcific plaque in the thoracic aorta. Multiple sternal wires and mediastinal clips are present. A right central venous catheter is again seen. There are scattered chronic interstitial changes in both lungs with no evidence of acute infiltrate, pneumothorax or pleural effusion. IMPRESSION: No evidence of left rib fracture. Stable chronic findings in the lungs. <Electronically signed by Ash Whittington > 09/14/21 [id number]
--- NOTE | 2021-09-14 18:18 | REP ---
INDICATION: trauma; fall COMPARISON: None TECHNIQUE: Four views of bilateral elbows. FINDINGS: There is no evidence of acute fracture, dislocation, or intrinsic bone disease.There is no radiographic evidence of a joint effusion bilaterally. IMPRESSION: No fracture or dislocation. <Electronically signed by Ash Whittington > 09/14/21 [id number]
[2021-09-14 18:30] LABS: ALBUMIN 2.5 GM/DL (3.2-5.2); BILIRUBIN,DIRECT 0.2 MG/DL (0.0-0.2); BILIRUBIN,TOTAL 0.7 MG/DL (0.2-1.0); CALCIUM LEVEL 9.3 MG/DL (8.8-10.2); CK-MB VALUE MASS 1.7 NG/ML (<3.6); CREATININE FOR GFR 4.28 MG/DL (0.70-1.30); FREE T4 1.55 NG/DL (0.76-1.46); GLOMERULAR FILTRATION RATE 14.4 (>42); MAGNESIUM LEVEL 1.9 MG/DL (1.8-2.4); MB/CK RELATIVE INDEX 2.05 (< OR =4); POTASSIUM SERUM 3.9 MEQ/L (3.5-5.1); THYROID STIMULATING HORMONE 0.221 uIU/ML (0.358-3.740); TOTAL PROTEIN 6.2 GM/DL (6.4-8.2); TROPONIN I 0.03 NG/ML (< 0.10)
[2021-09-14] MEDS ORDERED: NS 500 ML IV ONE (19:10)
[2021-09-14] MEDS ORDERED: ACETAMINOPHEN TAB 650MG DOSE (2X325MG) PO PRN (19:35)
--- OUTSIDE RECORDS SUMMARY | 2021-09-14 19:47 | CCD ---
Author Author [facility] Organization [facility] Address Unknown Phone Unavailable Care Team Providers Care Calender Let Off Operator Name Role Phone Manasa Sandoval MD Unavailable [...] Unavailable Unavailable White F Eduardo Unavailable Unavailable White, F Eduardo MD Unavailable [...] Unavailable KIA DUENAS MD Unavailable Unavailable KIA DUEANS MD Unavailable Unavailable KIA DUENAS MD Unavailable [...] J IVAN PA-C Unavailable Unavailable PICKERAL JR, Aroldo LOVE PA-C Unavailable Unavailable MAJAK, R TERI DPM [...] SEMEL, Юлия ZHANG MD Unavailable Unavailable SEMEL, Юляи ZHANG MD Unavailable Unavailable SEMEL, Юлия ZHANG [...] LEATHA MD Unavailable Unavailable SEMEL, A LEATHA CARRERA Unavailable Unavailable SEMEL, A LEATHA MD Unavailable [...] is protected by Article 27-F of the [place] Public Health law. If you continue you may have access to information: Regarding HIV / AIDS; Provided by facilities licensed or operated by the [facility] Office of Mental Health; or Provided by the [facility] Office for People With Developmental Disabilities. If such information is present, then the following [facility] mandated warning applies: This information has [...] law may result in a fine or fdc sentence or both. A general authorization for the release of medical or other information is NOT sufficient authorization for further disc losure. Family History Family Member Name Family Member Gender Family Member Status Date o f Status Description Data Source(s) Unknown Unknown Problem [facility] ([facility] Unknown Unknown Problem [facility] ([facility] Unknown Male Problem [facility] ([facility]) Unknown Male Problem [facility] ([facility] () Encounters Encounter Providers Location Date Indications Data Source(s ) Outpatient Attender: KIA DUENAS MD [email or web address] 12:00:00 AM EDT - 08/28/2021 02:45:[address] [facility] Outpatient Attender: IVAN Souza 0 08/03/2021 02:40:00 PM EDT MED[facility] ([facility] ) Outpatient Attender: Eduardo Souza 07/03 02:00:00 PM EDT [facility] ([facility] ) Outpatient Attender: IVAN Souza 0 06/17/2021 10:20:00 AM EDT [facility] ([facility] ) Outpatient Attender: TERI FERRIS [facility] Office 12/22 01:45:00 PM EST [facility] ([facility] Outpatient Attender: LEATHA AN MD Main Office 09/09/2020 01:00:0 0 PM EDT [facility] ([facility]) [facility] [address] [place] [id number] 08/15/2020 12:00:00 AM EDT eCW1 ([facility]) Outpatient Attender: Eduardo Souza 08/13 10:30:00 AM EDT MED[facility] ([facility] ) Immunizations Vaccine Date Status Description Data Source(s) COVID-19 VACCINE Moderna 02/17/2021 12:00:00 AM EDT completed [facility] Vaccine Series Complete: YESThis Data wa s Submitted to [facility] Via [employer]. COVID-19 VACCINE Moderna 01/20/2021 12:00:00 AM EST completed [facility] Vaccine Series Complete: NOThis Data was Submitted to [facility] [employer]. Influenza, injectable, MDCK, preservative free, gage valent 08/13/2020 10:49:00 AM EDT completed [facility] ([facility]) Medications Medication Brand Name Start [...] times a day First dose in the horse show manager 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 [facility] 25 mg 08/25/2021 12:00:00 AM EDT [...] HFA) 108 (90 Base) M CG/ACT inhaler [id number] 08/13/2021 12:00:00 AM EDT activ e INHALE 4 PUFFS EVERY 4 HOURS NEEDED FOR SHORTNESS OF BREATH/WHEEZING [facility] Acetaminophen 325 MG Oral Tablet acetaminophen (TYLENO L) 325 MG tablet acetaminophen (TYLENOL) 325 MG tablet 08/13/2021 12:00:00 AM EDT active TAKE 2 TABLETS BY MO [facility] EVERY 4 HOURS NEEDED FOR MILD PAIN OR TEMP OVER 101 MAX OF 9 TABLETS PER DAY [facility] atorvastatin 20 MG Oral Tablet ATORVASTATIN [...] active Take 5 mg by mouth daily [facility] 1,250 mcg (50,000 unit) 07/13/2021 12:00:00 AM EDT capsule 8 TAKE 1 CAPSULE BY MOUTH ONCE WEEKLY FOR 8 WEEKS TAKE 1 CAPSULE BY MOUTH ONCE WEEKLY FOR 8 WEEKS SOLD: 07/13/2021 [facility] Ergocalciferol 25204 UNT Oral Capsule er gocalciferol (Drisdol) 1.25 MG (93729 UT) capsule ergocalciferol (Drisdol) 1.25 MG (37160 UT) capsule 12:00:00 AM EDT Oral active Take by mouth [facility] Levothyroxine Sodium 0.088 MG Oral Table t levothyroxine (SYNTHROID, LEVOTHROID) 88 MCG tablet levothyroxine (SYNTHROID, LEVOTHROID) 88 MCG tablet 12:00:00 AM EDT 1 {tbl} Oral active Take 1 tablet by mouth daily [facility] Vitamin B 12 0.5 MG Oral Tablet cyanocobalamin 500 MCG tablet cyanocobalamin 500 MCG tablet 06/18/2021 12:00:00 AM EDT 2 {tbl} Oral active Take 2 tablets by mouth [facility] gabapentin 100 MG Oral Capsule gabapentin (NEURONTIN) 100 MG capsule gabapentin (NEURONTIN) 100 MG capsule 06/18/2021 12:00:00 AM EDT Oral active Take by mouth [facility] Folic Acid 1 MG Oral Tablet folic acid (FOLVITE) 1 MG tablet folic acid (FOLVITE) 1 MG tablet 06/18/2021 12:00:00 AM EDT 1 {tbl} Oral active Take 1 tablet by mouth [facility] apixaban 2.5 MG Oral Tablet apixaban (Eliquis) 2.5 MG TABS tablet apixaban (Eliquis) 2.5 MG TABS tablet 06/18/2021 12:00:00 AM EDT 1 {tbl} Oral active Take 1 tablet by mouth [facility] atorvastatin 20 MG Oral Tablet atorvastatin (LIPITOR) 20 MG tablet atorvastatin (LIPITOR) 20 MG tablet 06/18/2021 12:00:00 AM EDT 1 {tbl} Oral active Take 1 tablet by mouth [facility] apixaban 2.5 MG Oral Tablet [Eliquis] Eliquis 06/17/2021 12:00:00 AM EDT ORAL active MEDENT ([facility]) atorvastatin 20 MG Oral Tablet Atorvastatin Calcium 06/17/2021 1 2:00:00 AM EDT ORAL active [facility] ( [facility]) Prednisone 10 MG Oral Tablet Prednisone 06/17/2021 12:00:00 AM EDT ORAL completed MED[facility] ([facility]) Metoprolol Tartrate 25 MG Oral Tablet Metoprolol Tartrate 12:00:00 AM EDT ORAL active [facility] ([facility]) ramelteon 8 MG Oral Tablet Ramelteon 06/17/2021 12:00:00 AM EDT active MED[facility] ([facility]) Thiamine 100 MG Oral Tablet Vitamin B-1 06/17/2021 12:00:00 AM EDT ORAL active [facility] ([facility]) Vitamin B 12 1 MG Oral Tablet Vitamin B-12 06/17/2021 12:00:00 AM EDT ORAL active MED[facility] ([facility]) gabapentin 100 MG Oral Capsule Gabapentin 06/17/2021 12:00:00 AM EDT ORAL active MED[facility] ([facility]) Folic Acid 1 MG Oral Tablet Folic Acid 06/17/2021 12:00:00 AM EDT ORAL active MED[facility] ([facility]) 2.5 mg 06/12/2021 12:00:00 AM EDT tablet 60 TAKE ONE TABLET BY MOUTH TWICE A DAY TAKE ONE TABLET BY MOUTH TWICE A DAY SOLD: 06/17/2021 [facility] atorvastatin 20 MG Oral Tablet ATORVASTATIN [...] by mouth 2 (two) times a day [facility] 88 mcg 06/12/2021 12:00:00 AM EDT [...] orted TAKE ONE TABLET BY MOUTH DAILY [facility] Lovastatin 40 MG Oral Tablet lovastatin (MEVACOR) 40 M G tablet lovastatin (MEVACOR) 40 MG tablet 07/28/2018 12:00:00 AM EDT 80 mg Oral aborted Take 80 mg by mouth nightly [facility] rivaroxaban 15 MG Oral Tablet rivaroxaban (XARELTO) 15 MG TABS rivaroxaban (XARELTO) 15 MG TABS 05/31/2014 12:00:00 AM EDT 15 mg aborted 15 mg daily [facility] Levothyroxine Sodium 0.088 MG Oral Table t levothyroxine (SYNTHROID, LEVOTHROID) 88 MCG tablet levothyroxine (SYNTHROID, LEVOTHROID) 88 MCG tablet 100 ug Oral aborted Take 100 mcg by mout h daily [facility] Insurance Providers Payer name Policy type / Coverage type Policy ID Covered libertarian ID Covered libertarian's relationship to delcid Policy Delcid [facility] Information [facility] [id number] WI2 [id number] [facility] [id number] LA2 [id number] MEDICARE [id number] SP [id number] A MEDICARE [id number] MEDICARE [id number] SP [id number] A MEDICARE [id number] [facility] [id number] R [id number] [facility] [id number] [facility] [id number] r ([facility] Commercial [id number] Family Dependent [id number] [facility] Health Maintenance Organization (HMO) [id number] Family Dependent [id number] Commercial [id number] [facility] Part B [id number] Self [id number] ANSI-Commercial [id number] MEDICARE [id number] A [facility] Part B [id number] Self [id number] ANSI-Commercial [id number] [facility] B [id number] Self [id number] [employer] (Old) Commercial [id number] Family Dependent [id number] [employer] Commercial [id number] Family Dependent [id number] [facility] Part B [id number] Self [id number] Umr [employer] Commercial [id number] Family Dependent [id number] [facility] Part B [id number] Self [id number] [employer] Commercial [id number] Family Dependent [id number] [employer] Commercial [id number] Family Dependent 91 0 MEDICARE [id number] SP [id number] R [facility] [id number] WI2 [id number] MEDICARE [id number] SP [id number] UMR [facility] [id number] WI2 [id number] [employer] Medigap Part B [id number] Self [id number] U[employer] Commercial [id number] Family Dependent [id number] [employer] Medigap Part B [id number] Self [id number] [employer] Part B 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 Problem 01/05/2021 12:00:00 AM EST [facility] ([facility] Surgeries/Procedures Procedure Description Date Indications Data Source(s) POCT AMB EKG <td>POCT AMB EKG</td><td>Rou liam</td><td>08/28/2021 5:58 PM EDT</td><td> Atrial fibrillation Benign essential hypertension</td><td> </td> 08/28/2021 05:58:00 PM EDT Benign essential hypertensionAtrial fibrillation [facility] Benign essential hypertension Atrial fibrillation BLOOD COUNT COMPLETE AUTO&AUTO DIFRNTL WBC COUNT <td>C BC AND DIFFERENTIAL</td><td>Routine</td><td>08/13/2021</td><td></td><td> </td> 08/13/2021 12:00:00 AM EDT [facility] BASIC METABOLIC PANEL CALCIUM TOTAL <td>BASIC METABOLI C PANEL</td><td>Routine</td><td>08/13/2021</td><td></td><td> </td> 08/13/2021 12:00:00 AM EDT [facility] OFFICE OUTPATIENT VISIT 15 MINUTES 08/03/2021 12:00:00 AM EDT MED[facility] ([facility]) DEBRIDEMENT SUBCUTANEOUS TISSUE 20 SQ CM/< 08/03/2021 12:00:00 AM EDT [facility] ([facility] DEBRIDEMENT NAIL ANY METHOD 08/03/2021 12:00:00 AM EDT [facility] ([facility] OFFICE OUTPATIENT VISIT 25 MINUTES 07/03/2021 12:00:00 AM EDT [facility] ([facility]) OFFICE OUTPATIENT VISIT 25 MINUTES 06/17/2021 12:00:00 AM EDT [facility] ([facility]) DEBRIDEMENT NAIL ANY METHOD 01/02/2021 12:00:00 AM EST [facility] ([facility] DEBRIDEMENT OPEN WOUND 20 SQ CM/< 01/02/2021 12:00:00 AM EST [facility] ([facility] Results ID Date Data Source [id number] 09/03/2021 01:45:00 PM EDT [facility] ([facility]) Name Value Range Interpretation Code Description Data Shameka rce(s) Supporting Document(s) Influenza A Amplification Laboratory test result MED[facility] ([facility]) Negative results do not preclude influen za or RSV virus infection and should not be used as the sole basis for treatment or other patient management decisions. Influenza B Amplification Laboratory test result [facility] ([facility]) Negative results do not preclude influen za or RSV virus infection and should not be used as the sole basis for treatment or other patient management decisions. Laboratory test finding (navigational concept) Laboratory test result [facility] ([facility]) A false negative result may occur [...] pathogens. DISCLAIMER: Testing was performed using the [employer] SARS-CoV-2 test. This test was developed and its performance characteristics determined by [employer]. This test has not been FDA cleared [...] revoked sooner. RSV Amplification Laboratory test result [facility] ([facility]) Negative results do not preclude influen za or RSV virus infection and should not be used as the sole basis for treatment or other patient management decisions. ID Date Data Source [id number] 09/03/2021 01:45:00 PM EDT [facility] Name Value Range Interpretation Code Description Data Shameka rce(s) Supporting Document(s) SARS coronavirus 2 RNA [Presence] in Res piratory specimen by CHRISTOPHER with probe detection NEGATIVE [facility] This lab was ordered by [facility] a nd reported by [facility]. ID Date Data Source [id number] 09/03/2021 11:39:00 AM EDT MED[facility] ([facility]) Name Value Range Interpretation Code Description Data Shameka rce(s) Supporting Document(s) Glucose, Fasting 93 mg/dL 70-100 [facility] ([facility]) Blood Urea Nitrogen 20 mg/dL 7-18 [facility] ([facility]) Glomerular Filtration Rate 15.9 [facility] ([facility]) <content>Units are mL/min/1.73 m2</content>
<content></content>
<content>Chronic Kidney Disease Staging per NKF:</content>
<content></content>
<content>Stage I & II GFR >=60 Normal to Mildly Decreased</content>
<content>Stage III GFR 30- 59 Moderately Decreased</content>
<content>Stage IV GFR 15-29 Severely Decreased</content>
<content>Stage V GFR <15 Very Little GFR Left</content>
<content>ESRD GFR <15 on SHUFFLE BOARD OPERATOR</content>
<content></content> Creatinine For GFR 3.93 mg/dL 0.70-1.30 [facility] ([facility]) Sodium Level 135 meq/L 136-145 [facility] ([facility]) Chloride Level 96 meq/L 98-107 [facility] ([facility]) Potassium Serum 3.0 meq/L 3.5-5.1 [facility] ([facility]) Carbon Dioxide Level 32 meq/L 21-32 [facility] ([facility]) Anion Gap 7 meq/L 8-16 [facility] Calcium Level 8.4 mg/dL 8.8-10.2 [facility] ([facility]) Ast/Sgot 20 U/L 7-37 [facility] Alkaline Phosphatase 108 U/L 45-117 [facility] ([facility]) Bilirubin,Total 1.0 mg/dL 0.2-1.0 [facility] ([facility]) Alt/SGPT 12 U/L 12-78 [facility] Total Protein 6.5 GM/DL 6.4-8.2 [facility] ([facility]) Albumin 2.5 GM/DL 3.2-5.2 [facility] ([facility]) Albumin/Globulin Ratio 0.6 [facility] ([facility]) ID Date Data Source [id number] 09/03/2021 11:39:00 AM EDT [facility] ([facility]) Name Value Range Interpretation Code Description Data Shameka rce(s) Supporting Document(s) CPK Creatine Phosphokinase 40 U/L 39-308 [facility] ([facility]) CK-MB Value Mass 1.3 ng/mL [facility] ([facility]) Troponin I 0.03 ng/mL [facility] <content>Troponin I Reference Interval f or Siemens [place] LOCI:</content>
<content></content>
<content>99th Percentile= 0.00-0.045 ng/ml</content>
<content></content>
<content>Risk Stratification:</content>
<content><= 0.10 ng/ml Decreased Risk for Adverse Clinical</content>
<content>Events.</content>
<content>0.10-1.50 ng/ml Increased Risk for Adverse Clinical</content>
<content>Events. Evaluation of additional</content>
<content>criterion and/or repeat testing in 2-6</content>
<content>hours is suggested to rule out myocardial</content>
<content>damage.</content>
<content>>= 1.50 ng/ml Indicative of Myocardial Injury.</content>
<content></content> MB/CK Relative Index 3.25 [facility] ([facility]) <content>DIAGNOSIS CRITERIA</content>
<content>MMB ng/ml Relative Index (RI)</content>
<content>NON-AMI < or = 5 N/A</content>
<content>[place] ZONE > 5 < or = 4</content>
<content>AMI > 5 > 4</content>
<content></content> ID Date Data Source [id number] 09/03/2021 11:39:00 AM EDT [facility] ([facility]) Name Value Range Interpretation Code Description Data Shameka rce(s) Supporting Document(s) Thyrotropin [Units/volume] in Serum or Plasma by Detec tion limit <= 0.05 mIU/L 0.240 uIU/ML 0.358-3.740 [facility] ([facility] ) ID Date Data Source [id number] 09/03/2021 11:39:00 AM EDT [facility] ([facility]) Name Value Range Interpretation Code Description Data Shameka rce(s) Supporting Document(s) White Blood Count 8.0 10 4.0-10.0 [facility] ([facility]) Hemoglobin 10.2 g/dL 13.5-17.5 [facility] ([facility]) Red Blood Count 3.28 10 4.30-6.10 [facility] ([facility]) Mean Corpuscular Hemoglobin 31.1 pg 27.0-33.0 ME DENT ([facility]) Mean Corpuscular Volume 94.2 fl 80.0-96.0 [facility] ([facility]) Hematocrit 30.9 % 42.0-52.0 [facility] Mean Corpuscular HGB Conc 33.0 g/dL 32.0-36.5 MEDE NT ([facility]) Red Cell Distribution Width 14.0 % 11.5-14.5 AL [facility] ([facility]) Platelet Count, Automated 240 10 150-450 MEDE NT ([facility]) Nucleated Red Blood Cell % 0.0 % 0-0 [facility] ([facility]) ID Date Data Source [id number] 08/12/2021 03:35:00 PM EDT [facility] Name Value Range Interpretation Code Description Data Shameka rce(s) Supporting Document(s) Respiratory pathogens identified [Type] in Nasopharynx by Probe and target amplification method SARS-CoV-2 (COVID 19) [facility] This lab was ordered by [facility] a nd reported by [facility]. ID Date Data Source [id number] 07/01/2021 11:21:00 AM EDT [facility] ([facility]) Name Value Range Interpretation Code Description Data Shameka rce(s) Supporting Document(s) Thyrotropin [Units/volume] in Serum or Plasma by Detec tion limit <= 0.05 mIU/L 0.88 uIU/mL 0.36-3.74 [facility] ([facility] ) ID Date Data Source [id number] 07/01/2021 11:21:00 AM EDT [facility] ([facility]) Name Value Range Interpretation Code Description Data Shameka rce(s) Supporting Document(s) Cholesterol [Mass/volume] in Serum or Plasma 184 mg/dL 131-200 [facility] ([facility]) Triglyceride [Mass/volume] in Serum or Plasma 146 mg/dL 30-150 [facility] ([facility]) Cholesterol in HDL [Mass/volume] in Serum or Plasma 80 mg/dL 35-60 [facility] ([facility]) Cholesterol in LDL [Mass/volume] in Serum or Plasma by calcu lation 75 CALC 50-159 [facility] ([facility]) ID Date Data Source [id number] 07/01/2021 11:21:00 AM EDT [facility] ([facility]) Name Value Range Interpretation Code Description Data Shameka rce(s) Supporting Document(s) Glucose [Mass/volume] in Serum or Plasma 104 mg/dL 74-99 [facility] ([facility]) 100-125 mg/dL PRE-DIABETES/FASTING >126 mg/dL DIABETES/FASTING Creatinine 2.8 mg/dL 0.6-1.3 [facility] ([facility]) Urea nitrogen [Mass/volume] in Serum or Plasma 22 mg/dL 7-18 [facility] ([facility]) NOTE: BUN,CREAT VERIFIED Potassium [Moles/volume] in Serum or Plasma 3.6 meq/L 3.5-5.1 [facility] ([facility]) Sodium [Moles/volume] in Serum or Plasma 136 meq/L 136-145 [facility] ([facility]) Chloride [Moles/volume] in Serum or Plasma 96 meq/L 98-107 [facility] ([facility]) Carbon dioxide, total [Moles/volume] in Serum or Plasma 34 meq/L 21 -32 [facility] ([facility]) Calcium [Mass/volume] in Serum or Plasma 9.1 mg/dL 8.5-10.1 [facility] ([facility]) Total Bilirubin 0.5 mg/dL 0.2-1.0 [facility] ([facility]) Alkaline phosphatase isoenzyme [Units/volume] in Serum or Pl asma 98 mg/dL 46-116 [facility] ([facility]) Aspartate aminotransferase [Enzymatic activity/volume] in Serum or Plasma 28 U/L 15-37 [facility] ([facility] ) Alanine aminotransferase [Enzymatic activity/volume] in Seru m or Plasma 25 U/L 12-78 [facility] Albumin [Mass/volume] in Serum or Plasma 3.1 g/dL 3.4-5.0 [facility] A/G Ratio 0.79 CALC 1.00-1.90 [facility] Proteinase 3 Ab [Units/volume] in Serum 7.0 g/dL 6.4-8.2 [facility] Glomerular filtration rate/1.73 sq M pre dicted among non-blacks [Volume Rate/Area] in Serum or Plasma by Creatinine-based formula (MDRD) 22 mL/min [facility] Glomerular filtration rate/1.73 sq M pre dicted among blacks [Volume Rate/Area] in Serum or Plasma by Creatinine-based formula (MDRD) 27 mL/min [facility] <content>CHRONIC KIDNEY DISEASE STAGING PER NKF</content>
<content></content>
<content>STAGE I & II GFR >= 60 NORMAL TO MILDLY DECREASED</content>
<content>STAGE III GFR 30-59 MODERATELY DECREASED</content>
<content>STAGE IV GFR 15-29 SEVERELY DECREASED</content>
<content>STAGE V GFR <15 VERY LITTLE GFR LEFT</content>
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
<content></content> ID Date Data Source [id number] 07/01/2021 11:21:00 AM EDT [facility]) Name Value Range Interpretation Code Description Data Shameka rce(s) Supporting Document(s) Hemoglobin A1c/Hemoglobin.total in Blood 5.5 % [facility] ([facility]) Lab Result Notes: Pre-Diabetes 5.7 - 6.4 % Diabetes = or > 6.5% Glucose mean value [Mass/volume] in Blood Estimated fr om glycated hemoglobin 111 mg/dL 60-110 [facility] ([facility] ) ID Date Data Source [id number] 07/01/2021 11:21:00 AM EDT [facility]) Name Value Range Interpretation Code Description Data Shameka rce(s) Supporting Document(s) Leukocytes [#/volume] in Blood by Automated count 13.6 x10*3/UL 4.1-1 0.9 [facility] ([facility]) NOTE: CBC VERIFIED Erythrocytes [#/volume] in Blood by Automated count 4.09 x10*6/UL 4.2 0-6.30 [facility] ([facility]) Hemoglobin [Mass/volume] in Blood 12.9 g/dL 12.0-18.0 [facility] ([facility]) MCV 93.2 fL 80.0-97.0 [facility] [facility] Hematocrit [Volume Fraction] of Blood by Automated count 38.1 % 3 7.0-51.0 [facility] ([facility]) MCHC 33.8 g/dL 31.0-38.0 [facility] ([place] [facility]) Erythrocyte distribution width [Ratio] by Automated count 14.6 % 11.6-13.7 [facility] ([facility]) MCH 31.5 pg 26.0-32.0 [facility] [facility] MPV 8.0 FL 7.8-11.0 [facility] ([place] [facility]) Platelets [#/volume] in Blood by Automated count 282 x10*3/UL 140-440 [facility] ([facility]) Mid % 2.3 % 1.7-9.3 [facility] ([place] [facility] Neut % 89.4 % 37.0-92.0 [facility] ([place] [facility] Lymph % 8.3 % 10.0-58.5 [facility] ([place] [facility] Mid # 0.3 x10*3/UL 0.1-0.6 [facility] ([facility]) Lymph # 1.1 x10*3/UL 0.6-4.1 [facility] ([facility]) Neut # 12.2 x10*3/UL 2.0-7.8 [facility] ([facility]) ID Date Data Source [id number] 07/01/2021 11:21:00 AM EDT [facility] ([facility]) Name Value Range Interpretation Code Description Data Shameka rce(s) Supporting Document(s) Hemoglobin A1c/Hemoglobin.total in Blood Laboratory test result [facility] ([facility]) ID Date Data Source [id number] 06/17/2021 11:03:00 AM EDT [facility] ([facility]) Name Value Range Interpretation Code Description Data Shameka rce(s) Supporting Document(s) Thyrotropin [Units/volume] in Serum or Plasma by Detec tion limit <= 0.05 mIU/L 2.97 uIU/mL 0.36-3.74 [facility] ([facility] ) ID Date Data Source [id number] 06/17/2021 11:03:00 AM EDT [facility] ([facility]) Name Value Range Interpretation Code Description Data Shameka rce(s) Supporting Document(s) Glucose [Mass/volume] in Serum or Plasma 149 mg/dL 74-99 [facility] ([facility]) 100-125 mg/dL PRE-DIABETES/FASTING >126 mg/dL DIABETES/FASTING Urea nitrogen [Mass/volume] in Serum or Plasma 27 mg/dL 7-18 [facility] ([facility]) NOTE: BUN,CREAT VERIFIED Creatinine 3.1 mg/dL 0.6-1.3 [facility] Chloride [Moles/volume] in Serum or Plasma 102 meq/L 98-107 [facility] ([facility]) Potassium [Moles/volume] in Serum or Plasma 3.8 meq/L 3.5-5.1 [facility] ([facility]) Sodium [Moles/volume] in Serum or Plasma 140 meq/L 136-145 [facility] ([facility]) Carbon dioxide, total [Moles/volume] in Serum or Plasma 33 meq/L 21 -32 [facility] ([facility]) Calcium [Mass/volume] in Serum or Plasma 9.1 mg/dL 8.5-10.1 [facility] ([facility]) Glomerular filtration rate/1.73 sq M pre dicted among non-blacks [Volume Rate/Area] in Serum or Plasma by Creatinine-based formula (MDRD) 20 mL/min [facility] ([facility]) Glomerular filtration rate/1.73 sq M pre dicted among blacks [Volume Rate/Area] in Serum or Plasma by Creatinine-based formula (MDRD) 24 mL/min [facility] ([facility]) <content>CHRONIC KIDNEY DISEASE STAGING PER NKF</content>
<content></content>
<content>STAGE I & II GFR >= 60 NORMAL TO MILDLY DECREASED</content>
<content>STAGE III GFR 30-59 MODERATELY DECREASED</content>
<content>STAGE IV GFR 15-29 SEVERELY DECREASED</content>
<content>STAGE V GFR <15 VERY LITTLE GFR LEFT</content>
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
<content></content> ID Date Data Source [id number] 06/17/2021 11:03:00 AM EDT [facility] Name Value Range Interpretation Code Description Data Shameka rce(s) Supporting Document(s) Leukocytes [#/volume] in Blood by Automated count 11.2 x10*3/UL 4.1-1 0.9 [facility] ([facility]) CRITICAL: CBC VERIFIED Hematocrit [Volume Fraction] of Blood by Automated count 38.2 % 3 7.0-51.0 [facility] [facility] Erythrocytes [#/volume] in Blood by Automated count 4.02 x10*6/UL 4.2 0-6.30 [facility] ([place] [facility] Hemoglobin [Mass/volume] in Blood 12.6 g/dL 12.0-18.0 [facility] MCH 31.5 pg 26.0-32.0 [facility] [facility] MCV 95.0 fL 80.0-97.0 [facility] [facility]) MCHC 33.1 g/dL 31.0-38.0 [facility] [facility]) Platelets [#/volume] in Blood by Automated count 183 x10*3/UL 140-440 [facility] ([facility]) MPV 8.1 FL 7.8-11.0 [facility] ([place] [facility]) Erythrocyte distribution width [Ratio] by Automated count 16.3 % 11.6-13.7 [facility] ([facility]) Mid % 2.7 % 1.7-9.3 [facility] [facility] Lymph % 7.0 % 10.0-58.5 [facility] ([place] [facility] Neut % 90.3 % 37.0-92.0 [facility] [facility] Lymph # 0.7 x10*3/UL 0.6-4.1 [facility] ([facility]) Mid # 0.4 x10*3/UL 0.1-0.6 [facility] ([facility]) Neut # 10.1 x10*3/UL 2.0-7.8 [facility] ([facility]) ID Date Data Source [id number] 05/22/2021 10:08:00 PM EDT [facility] ([facility]) Name Value Range Interpretation Code Description Data Shameka rce(s) Supporting Document(s) CPK Creatine Phosphokinase 55 U/L 39-308 [facility] ([facility]) MB/CK Relative Index 5.82 [facility] ([facility]) <content>DIAGNOSIS CRITERIA</content>
<content>MMB ng/ml Relative Index (RI)</content>
<content>NON-AMI < or = 5 N/A</content>
<content>SUTHER[place] ZONE > 5 < or = 4</content>
<content>AMI > 5 > 4</content>
<content></content> CK-MB Value Mass 3.2 ng/mL [facility] ([facility]) Troponin I 0.13 ng/mL [facility] ([facility]) <content>Troponin I Reference Interval f or Siemens Toluca LOCI:</content>
<content></content>
<content>99th Percentile= 0.00-0.045 ng/ml</content>
<content></content>
<content>Risk Stratification:</content>
<content><= 0.10 ng/ml Decreased Risk for Adverse Clinical</content>
<content>Events.</content>
<content>0.10-1.50 ng/ml Increased Risk for Adverse Clinical</content>
<content>Events. Evaluation of additional</content>
<content>criterion and/or repeat testing in 2-6</content>
<content>hours is suggested to rule out myocardial</content>
<content>damage.</content>
<content>>= 1.50 ng/ml Indicative of Myocardial Injury.</content>
<content></content> ID Date Data Source [id number] 05/22/2021 10:08:00 PM EDT [facility] ([facility]) Name Value Range Interpretation Code Description Data Shameka rce(s) Supporting Document(s) C reactive protein [Mass/volume] in Serum or Plasma by High sensitivity method 10.10 mg/dL 0.00-0.30 [facility] [facility] ID Date Data Source [id number] 05/22/2021 08:23:00 PM EDT [facility] ([facility]) Name Value Range Interpretation Code Description Data Shameka rce(s) Supporting Document(s) Influenza A Amplification Laboratory test result [facility] ([facility]) Negative results do not preclude influen za or RSV virus infection and should not be used as the sole basis for treatment or other patient management decisions. Influenza B Amplification Laboratory test result [facility] ([facility]) Negative results do not preclude influen za or RSV virus infection and should not be used as the sole basis for treatment or other patient management decisions. RSV Amplification Laboratory test result [facility] ([facility]) Negative results do not preclude influen za or RSV virus infection and should not be used as the sole basis for treatment or other patient management decisions. Laboratory test finding (navigational concept) Laboratory test result [facility] ([place] [facility] A false negative result may [...] pathogens. DISCLAIMER: Testing was performed using the [employer] SARS-CoV-2 test. This test was developed and its performance characteristics determined by [employer]. This test has not been FDA cleared [...] or revoked sooner. ID Date Data Source [id number] 05/22/2021 08:23:00 PM [facility] Name Value Range Interpretation Code Description Data Shameka rce(s) Supporting Document(s) SARS coronavirus 2 RNA [Presence] in Res piratory specimen by CHRISTOPHER with probe detection NEGATIVE [facility] This lab was ordered by [facility] a nd reported by [facility]. ID Date Data Source [id number] 05/22/2021 07:08:00 PM EDT [facility] ([facility]) Name Value Range Interpretation Code Description Data Shameka rce(s) Supporting Document(s) CPK Creatine Phosphokinase 58 U/L 39-308 [facility] ([facility]) CK-MB Value Mass 3.1 ng/mL [facility] ([facility]) MB/CK Relative Index 5.34 [facility]) <content>DIAGNOSIS CRITERIA</content>
<content>MMB ng/ml Relative Index (RI)</content>
<content>NON-AMI < or = 5 N/A</content>
<content>[place] ZONE > 5 < or = 4</content>
<content>AMI > 5 > 4</content>
<content></content> Troponin I 0.14 ng/mL [facility] ([facility]) <content>Troponin I Reference Interval f or Siemens Toluca LOCI:</content>
<content></content>
<content>99th Percentile= 0.00-0.045 ng/ml</content>
<content></content>
<content>Risk Stratification:</content>
<content><= 0.10 ng/ml Decreased Risk for Adverse Clinical</content>
<content>Events.</content>
<content>0.10-1.50 ng/ml Increased Risk for Adverse Clinical</content>
<content>Events. Evaluation of additional</content>
<content>criterion and/or repeat testing in 2-6</content>
<content>hours is suggested to rule out myocardial</content>
<content>damage.</content>
<content>>= 1.50 ng/ml Indicative of Myocardial Injury.</content>
<content></content> ID Date Data Source [id number] 05/22/2021 07:08:00 PM EDT [facility] ([facility]) Name Value Range Interpretation Code Description Data Shameka rce(s) Supporting Document(s) Glucose, Fasting 94 mg/dL 70-100 [facility] ([facility]) Creatinine For GFR 4.03 mg/dL 0.70-1.30 [facility] ([facility]) Blood Urea Nitrogen 28 mg/dL 7-18 [facility] ([facility]) Glomerular Filtration Rate 15.4 [facility] ([facility]) <content>Units are mL/min/1.73 m2</content>
<content></content>
<content>Chronic Kidney Disease Staging per NKF:</content>
<content></content>
<content>Stage I & II GFR >=60 Normal to Mildly Decreased</content>
<content>Stage III GFR 30- 59 Moderately Decreased</content>
<content>Stage IV GFR 15-29 Severely Decreased</content>
<content>Stage V GFR <15 Very Little GFR Left</content>
<content>ESRD GFR <15 on SHUFFLE BOARD OPERATOR</content>
<content></content> Sodium Level 141 meq/L 136-145 [facility] ([facility]) Chloride Level 102 meq/L 98-107 [facility] ([facility]) Potassium Serum 3.8 meq/L 3.5-5.1 [facility] ([facility]) Carbon Dioxide Level 29 meq/L 21-32 [facility] ([facility]) Anion Gap 10 meq/L 8-16 [facility] ([facility]) Calcium Level 7.9 mg/dL 8.8-10.2 [facility] ([facility]) ID Date Data Source [id number] 05/22/2021 07:08:00 PM EDT [facility] ([facility] Name Value Range Interpretation Code Description Data Shameka rce(s) Supporting Document(s) Ast/Sgot 29 U/L 7-37 [facility] ([facility]) Alt/SGPT 53 U/L 12-78 [facility] ([facility]) Alkaline Phosphatase 131 U/L 45-117 [facility] ([facility]) Bilirubin,Total 0.4 mg/dL 0.2-1.0 [facility] ([facility]) Albumin 2.6 GM/DL 3.2-5.2 [facility] ([facility]) Bilirubin,Direct 0.2 mg/dL 0.0-0.2 [facility] ([facility] Total Protein 5.8 GM/DL 6.4-8.2 [facility] ([facility]) Albumin/Globulin Ratio 0.8 [facility] ([place] [facility] ID Date Data Source [id number] 05/22/2021 07:08:00 PM EDT [facility] ([facility]) Name Value Range Interpretation Code Description Data Shameka rce(s) Supporting Document(s) Thyrotropin [Units/volume] in Serum or Plasma by Detec tion limit <= 0.05 mIU/L 1.940 uIU/ML 0.358-3.740 [facility] ([facility] ) Thyroxine (T4) free [Mass/volume] in Serum or Plasma 0.90 ng/dL 0.76- 1.46 [facility] ([facility]) ID Date Data Source [id number] 05/22/2021 07:08:00 PM EDT [facility] ([facility]) Name Value Range Interpretation Code Description Data Shameka rce(s) Supporting Document(s) White Blood Count 8.4 10 4.0-10.0 [facility] ([facility]) Hematocrit 33.7 % 42.0-52.0 [facility] ([facility]) Red Blood Count 3.35 10 4.30-6.10 [facility] ([facility]) Hemoglobin 10.8 g/dL 13.5-17.5 [facility] ([facility]) Mean Corpuscular Hemoglobin 32.2 pg 27.0-33.0 [facility] ([facility]) Mean Corpuscular Volume 100.6 fl 80.0-96.0 [facility] ([facility]) Red Cell Distribution Width 15.8 % 11.5-14.5 [facility] ([facility]) Mean Corpuscular HGB Conc 32.0 g/dL 32.0-36.5 [facility] ([facility]) Nucleated Red Blood Cell % 0.2 % 0-0 [facility] ([facility]) Platelet Count, Automated 127 10 150-450 [facility] ([facility]) ID Date Data Source [id number] 05/22/2021 07:08:00 PM EDT [facility] ([facility]) Name Value Range Interpretation Code Description Data Shameka rce(s) Supporting Document(s) Bands 12 % [facility] [facility] Neutrophils 64 % 28-66 [facility] ([facility]) Lymphocytes 11 % 16-44 [facility] ([facility]) Monocytes 9 % 0-5 [facility] [facility] Metamyelocytes 1 % 0-0 [facility] ([facility]) Basophils 1 % 0-1 [facility] [facility] Myelocytes 2 % 0-0 [facility] [facility]) ID Date Data Source [id number] 05/22/2021 07:08:00 PM EDT [facility] ([facility]) Name Value Range Interpretation Code Description Data Shameka rce(s) Supporting Document(s) Platelets [#/volume] in Blood by Estimate Laboratory test result [facility] ([facility]) ID Date Data Source [id number] 05/18/2021 01:03:00 PM EDT [facility] Name Value Range Interpretation Code Description Data Shameka rce(s) Supporting Document(s) SARS coronavirus 2 RNA [Presence] in Res piratory specimen by CHRISTOPHER with probe detection NEGATIVE [facility] This lab was ordered by [facility] a nd reported by [facility]. ID Date Data Source [id number] 05/07/2021 04:05:00 PM EDT [facility] ([facility]) Name Value Range Interpretation Code Description Data Shameka rce(s) Supporting Document(s) Laboratory test finding (navigational concept) 0.10 ng/mL 0.00-0.08 [facility] ([facility]) ID Date Data Source [id number] 05/07/2021 03:51:00 PM EDT [facility] ([facility]) Name Value Range Interpretation Code Description Data Shameka rce(s) Supporting Document(s) Laboratory test finding (navigational concept) 33.0 % 38.0-51.0 [facility] ([facility]) Laboratory test finding (navigational concept) 89 mg/dL 70-105 [facility] ([facility]) Laboratory test finding (navigational concept) 140 meq/L 136-145 [facility] ([facility]) Laboratory test finding (navigational concept) 3.9 meq/L 3.5-5.1 [facility] ([facility]) Laboratory test finding (navigational concept) 4.2 mg/dL 4.5-5.3 [facility] ([facility]) Laboratory test finding (navigational concept) 100 meq/L 98-109 [facility] ([facility]) Laboratory test finding (navigational concept) 24.0 MM/L 23.0-27.0 [facility] ([facility]) Laboratory test finding (navigational concept) 41 mg/dL 8-26 [facility] ([facility]) Laboratory test finding (navigational concept) 4.4 mg/dL 0.6-1.3 [facility] ([facility]) ID Date Data Source [id number] 05/07/2021 03:22:00 PM EDT [facility] ([facility]) Name Value Range Interpretation Code Description Data Shameka rce(s) Supporting Document(s) Thyrotropin [Units/volume] in Serum or Plasma by Detec tion limit <= 0.05 mIU/L 0.505 uIU/ML 0.358-3.740 [facility] ([place] [facility] ID Date Data Source [id number] 05/07/2021 03:22:00 PM EDT [facility] ([facility] Name Value Range Interpretation Code Description Data Shameka rce(s) Supporting Document(s) Blood Urea Nitrogen 41 mg/dL 7-18 [facility] ([facility]) Creatinine For GFR 4.06 mg/dL 0.70-1.30 [facility] Glucose, Fasting 90 mg/dL 70-100 [facility] ([facility]) Sodium Level 140 meq/L 136-145 [facility] ([facility]) Glomerular Filtration Rate 15.3 [facility] ([facility]) <content>Units are mL/min/1.73 m2</content>
<content></content>
<content>Chronic Kidney Disease Staging per NKF:</content>
<content></content>
<content>Stage I & II GFR >=60 Normal to Mildly Decreased</content>
<content>Stage III GFR 30- 59 Moderately Decreased</content>
<content>Stage IV GFR 15-29 Severely Decreased</content>
<content>Stage V GFR <15 Very Little GFR Left</content>
<content>ESRD GFR <15 on SHUFFLE BOARD OPERATOR</content>
<content></content> Chloride Level 106 meq/L 98-107 [facility] ([facility]) Potassium Serum 3.9 meq/L 3.5-5.1 [facility] ([facility]) Anion Gap 7 meq/L 8-16 [facility] [facility] Carbon Dioxide Level 27 meq/L 21-32 [facility] ([facility]) Calcium Level 7.4 mg/dL 8.8-10.2 [facility] ([facility]) ID Date Data Source [id number] 05/07/2021 03:22:00 PM EDT [facility] ([facility]) Name Value Range Interpretation Code Description Data Shameka rce(s) Supporting Document(s) Ast/Sgot 70 U/L 7-37 [facility] ([facility]) Bilirubin,Total 0.5 mg/dL 0.2-1.0 [facility] ([facility]) Alkaline Phosphatase 84 U/L 45-117 [facility] ([facility]) Alt/SGPT 69 U/L 12-78 [facility] ([facility]) Bilirubin,Direct 0.2 mg/dL 0.0-0.2 [facility] ([facility]) Total Protein 5.3 GM/DL 6.4-8.2 [facility] ([facility]) Albumin/Globulin Ratio 0.8 [facility] ([facility]) Albumin 2.4 GM/DL 3.2-5.2 [facility] ([facility]) ID Date Data Source [id number] 05/07/2021 03:22:00 PM EDT [facility] ([facility]) Name Value Range Interpretation Code Description Data Shameka rce(s) Supporting Document(s) Ammonia [Mass/volume] in Blood Laboratory test result [facility] ([facility]) ID Date Data Source [id number] 05/07/2021 03:22:00 PM EDT [facility] ([facility]) Name Value Range Interpretation Code Description Data Shameka rce(s) Supporting Document(s) Red Blood Count 3.49 10 4.30-6.10 [facility] ([facility]) White Blood Count 6.9 10 4.0-10.0 [facility] ([facility]) Hemoglobin 11.0 g/dL 13.5-17.5 [facility] ([facility]) Hematocrit 34.2 % 42.0-52.0 [facility] [facility] Mean Corpuscular Volume 98.0 fl 80.0-96.0 [facility] ([facility]) Mean Corpuscular HGB Conc 32.2 g/dL 32.0-36.5 [facility] ([facility]) Mean Corpuscular Hemoglobin 31.5 pg 27.0-33.0 [facility] ([facility]) Red Cell Distribution Width 13.3 % 11.5-14.5 [facility] ([facility]) Neutrophils % 82.7 % 36.0-66.0 [facility] ([facility]) Platelet Count, Automated 108 10 150-450 [facility] ([facility]) [place]ie % 5.1 % 2.0-8.0 [facility] [facility]) Lymph % 5.7 % 24.0-44.0 [facility] [facility]) Baso % 0.3 % 0.0-1.0 [facility] [facility]) Eos % 3.6 % 0.0-3.0 [facility] [facility]) Immature Granulocyte % 2.6 % 0-3.0 [facility] ([facility]) Nucleated Red Blood Cell % 0.0 % 0-0 [facility] ([facility]) Neutrophils # 5.7 10 1.5-8.5 [facility] ([facility]) Lymph # 0.4 10 1.5-5.0 [facility] [facility]) [place]ie # 0.4 10 0.0-0.8 [facility] [facility]) Eos # 0.3 10 0.0-0.5 [facility] [facility]) Baso # 0.0 10 0.0-0.2 [facility] [facility]) ID Date Data Source [id number] 05/07/2021 01:54:00 PM EDT [facility] ([facility]) Name Value Range Interpretation Code Description Data Shameka rce(s) Supporting Document(s) Influenza A Amplification Laboratory test result [facility] ([facility]) Negative results do not preclude influen za or RSV virus infection and should not be used as the sole basis for treatment or other patient management decisions. RSV Amplification Laboratory test result [facility] ([facility]) Negative results do not preclude influen za or RSV virus infection and should not be used as the sole basis for treatment or other patient management decisions. Influenza B Amplification Laboratory test result [facility] ([facility]) Negative results do not preclude influen za or RSV virus infection and should not be used as the sole basis for treatment or other patient management decisions. Laboratory test finding (navigational concept) Laboratory test result [facility] ([facility]) A false negative result may occur [...] pathogens. DISCLAIMER: Testing was performed using the [employer] SARS-CoV-2 test. This test was developed and its performance characteristics determined by [employer]. This test has not been FDA cleared [...] or revoked sooner. ID Date Data Source [id number] 05/07/2021 01:54:00 PM EDT [facility] Name Value Range Interpretation Code Description Data Shameka rce(s) Supporting Document(s) SARS coronavirus 2 RNA [Presence] in Res piratory specimen by CHRISTOPHER with probe detection NEGATIVE [facility] This lab was ordered by [facility] a nd reported by [facility]. ID Date Data Source [id number] 04/27/2021 08:48:00 PM EDT [facility] ([facility]) Name Value Range Interpretation Code Description Data Shameka rce(s) Supporting Document(s) CPK Creatine Phosphokinase 850 U/L 39-308 [facility] ([facility]) MB/CK Relative Index 0.91 [facility] ([facility]) <content>DIAGNOSIS CRITERIA</content>
<content>MMB ng/ml Relative Index (RI)</content>
<content>NON-AMI < or = 5 N/A</content>
<content>[place] > 5 < or = 4</content>
<content>AMI > 5 > 4</content>
<content></content> CK-MB Value Mass 7.7 ng/mL [facility] ([facility]) Troponin I 1.15 ng/mL [facility] ([facility]) <content>Troponin I Reference Interval f or Siemens [place] LOCI:</content>
<content></content>
<content>99th Percentile= 0.00-0.045 ng/ml</content>
<content></content>
<content>Risk Stratification:</content>
<content><= 0.10 ng/ml Decreased Risk for Adverse Clinical</content>
<content>Events.</content>
<content>0.10-1.50 ng/ml Increased Risk for Adverse Clinical</content>
<content>Events. Evaluation of additional</content>
<content>criterion and/or repeat testing in 2-6</content>
<content>hours is suggested to rule out myocardial</content>
<content>damage.</content>
<content>>= 1.50 ng/ml Indicative of Myocardial Injury.</content>
<content></content> ID Date Data Source [id number] 04/27/2021 05:48:00 PM EDT [facility] Name Value Range Interpretation Code Description Data [facility](s) Supporting Document(s) SARS coronavirus 2 RNA [Presence] in Res piratory specimen by CHRISTOPHER with probe detection NEGATIVE [facility] This lab was ordered by [facility] a nd reported by [facility]. ID Date Data Source [id number] 04/01/2021 01:04:00 PM EDT [facility] ([facility]) Name Value Range Interpretation Code Description Data Shameka rce(s) Supporting Document(s) Prothrombin Time 13.7 s 12.5-14.3 [facility] ([facility]) Inr 1.03 [facility] ([facility] THERAPUTIC HUMAN INR VALUES INDICATIONS NORMAL RANGES PROPHYLAXIS/TREATMENT OF: VENOUS THROMBOSIS 2.0-3.0 PULMONARY EMBOLISM 2.0-3.0 PREVENTION OF SYSTEMIC EMBOLISM FROM: TISSUE HEART VALVES 2.0-3.0 ACUTE MYOCARDIAL INFARCTION 2.0-3.0 VALVULAR HEART DISEASE 2.0-3.0 ATRIAL FIBRILLATION 2.0-3.0 MECHANICAL VALVES(HIGH RISK) 2.5-3.5 RECURRENT MYOCARDIAL INFARCTION 2.5-3.5 ID Date Data Source [id number] 04/01/2021 01:04:00 PM EDT [facility] ([facility]) Name Value Range Interpretation Code Description Data Shameka rce(s) Supporting Document(s) Red Blood Count 3.76 10 4.30-6.10 [facility] ([facility]) White Blood Count 9.4 10 4.0-10.0 [facility] ([facility]) Mean Corpuscular Volume 98.7 fl 80.0-96.0 [facility] ([facility]) Hematocrit 37.1 % 42.0-52.0 [facility] Hemoglobin 11.9 g/dL 13.5-17.5 [facility]) Mean Corpuscular Hemoglobin 31.6 pg 27.0-33.0 AL DENT ([facility]) Red Cell Distribution Width 12.9 % 11.5-14.5 [facility] ([facility]) Mean Corpuscular HGB Conc 32.1 g/dL 32.0-36.5 MEDE NT ([facility]) Nucleated Red Blood Cell % 0.0 % 0-0 [facility] ([facility]) Platelet Count, Automated 193 10 150-450 [facility] NT ([facility]) ID Date Data Source [id number] 08/12/2020 11:22:00 AM EDT [facility] ([facility] Name Value Range Interpretation Code Description Data Shameka rce(s) Supporting Document(s) Laboratory test finding (navigational concept) 2888.3 mg/L 1.3-20.0 [facility] ([facility]) NOTE: DILUTED AND VERIFIED Urine Creatinine 372.9 mg/dL 30.0-125.0 [facility] ([facility] Microalb/Creat Ratio 774.6 ug/mg 0.0-30.0 [facility] ([facility]) ID Date Data Source [id number] 08/12/2020 11:22:00 AM EDT [facility] ([facility] ID Date Data Source [id number] 08/12/2020 11:22:00 AM EDT [facility] ([facility] [...] 138 meq/L 136-145 [facility] ([facility]) Calcium [Mass/volume] in Serum or Plasma 9.0 mg/dL 8.5-10.1 [facility] ([facility]) Chloride [Moles/volume] in Serum or Plasma 102 meq/L 98-107 [facility] ([facility]) Carbon dioxide, total [Moles/volume] in Serum or Plasma 27 meq/L 21 -32 [facility] ([facility]) Alanine aminotransferase [Enzymatic activity/volume] in Seru m or Plasma 48 U/L 12-78 [facility] ([facility] ) Total Bilirubin 0.8 mg/dL 0.2-1.0 [facility] ([facility]) Aspartate aminotransferase [Enzymatic activity/volume] in Serum or Plasma 67 U/L 15-37 [facility] ([facility]) Alkaline phosphatase isoenzyme [Units/volume] in Serum or Pl asma 83 mg/dL 46-116 [facility] ([facility] ) Albumin/Globulin [Mass Ratio] in Serum or Plasma 0.81 CALC 1.00-1.90 [facility] ([facility]) Proteinase 3 Ab [Units/volume] in Serum 7.8 g/dL 6.4-8.2 [facility] ([facility]) Albumin [Mass/volume] in Serum or Plasma 3.5 g/dL 3.4-5.0 [facility] ([facility]) Glomerular filtration rate/1.73 sq M pre dicted among non-blacks [Volume Rate/Area] in Serum or Plasma by Creatinine-based formula (MDRD) 42 mL/min [facility] ([facility]) Glomerular filtration rate/1.73 sq M pre dicted among blacks [Volume Rate/Area] in Serum or Plasma by Creatinine-based formula (MDRD) 51 mL/min [facility] ([facility]) <content>CHRONIC KIDNEY DISEASE STAGING PER NKF</content>
<content></content>
<content>STAGE I & II GFR >= 60 NORMAL TO MILDLY DECREASED</content>
<content>STAGE III GFR 30-59 MODERATELY DECREASED</content>
<content>STAGE IV GFR 15-29 SEVERELY DECREASED</content>
<content>STAGE V GFR <15 VERY LITTLE GFR LEFT</content>
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
<content></content>
<content></content> ID Date Data Source [id number] 08/12/2020 11:22:00 AM EDT [facility] ([facility]) Name Value Range Interpretation Code Description Data Shameka rce(s) Supporting Document(s) Glucose mean value [Mass/volume] in Blood Estimated fr om glycated hemoglobin 131 mg/dL 60-110 [facility] ([facility]) Hemoglobin A1c/Hemoglobin.total in Blood 6.2 % [facility] ([facility]) Lab Result Notes: Pre-Diabetes 5.7 - 6.4 % Diabetes = or > 6.5% ID Date Data Source [id number] 08/12/2020 11:22:00 AM EDT [facility] ([facility] Name Value Range Interpretation Code Description Data Shameka rce(s) Supporting Document(s) Hematocrit [Volume Fraction] of Blood by Automated count 44.5 % 3 7.0-51.0 [facility] ([facility]) Erythrocytes [#/volume] in Blood by Automated count 4.85 x10*6/UL 4.2 0-6.30 [facility] ([facility]) Hemoglobin [Mass/volume] in Blood 15.6 g/dL 12.0-18.0 [facility] ([facility]) Leukocytes [#/volume] in Blood by Automated count 8.7 x10*3/UL 4.1-10 .9 [facility] ([facility]) MCHC 35.1 g/dL 31.0-38.0 [facility] ([facility] MCV 91.7 fL 80.0-97.0 [facility] ([facility]) MCH 32.2 pg 26.0-32.0 [facility] ([facility]) Platelet mean volume [Entitic volume] in Blood by Sussy 8.2 FL 7.8-11.0 [facility] ([facility]) Platelets [#/volume] in Blood by Automated count 222 x10*3/UL 140-440 [facility] ([facility]) Lymphocytes/100 leukocytes in Blood by Automated count 7.5 % 10. 0-58.5 [facility] ([facility]) Erythrocyte distribution width [Ratio] by Automated count 13.4 % 11.6-13.7 [facility] ([facility]) Neut % 85.1 % 37.0-92.0 [facility] ([facility]) Lymph # 0.6 x10*3/UL 0.6-4.1 [facility] ([facility]) Mid # 0.7 x10*3/UL 0.1-0.6 [facility] ([facility]) Mid % 7.4 % 1.7-9.3 [facility] ([facility]) Neutrophils [#/volume] in Semen by Manual count 7.4 x10*3/UL 2.0-7.8 [facility] ([facility]) ID Date Data Source [id number] 08/12/2020 11:22:00 AM EDT [facility] ([facility]) Name Value Range Interpretation Code Description Data Shameka rce(s) Supporting Document(s) Prostate specific Ag [Mass/volume] in Serum or Plasma 0.20 ng/mL [facility] This assay was performed on the Siemens Dimension EXL using the B- Galactosidase/CPRG methodology and should not be compared interchangeably with other methods. The PSA should not be used alone as a screening test for the presence or absence of malignant disease. ID Date Data Source [id number] 08/12/2020 11:22:00 AM EDT [facility] ([facility]) Name Value Range Interpretation Code Description Data Shameka rce(s) Supporting Document(s) Thyrotropin [Units/volume] in Serum or Plasma by Detec tion limit <= 0.05 mIU/L 0.61 uIU/mL 0.36-3.74 [facility] ([facility] ) ID Date Data Source [id number] 08/12/2020 11:22:00 AM EDT [facility] Name Value Range Interpretation Code Description Data Shameka rce(s) Supporting Document(s) Microalbumin Urine 2888.3 mg/L 1.3-20.0 [facility] ([facility]) NOTE: DILUTED AND VERIFIED Urine Creatinine 372.9 mg/dL 30.0-125.0 [facility] ([facility]) Microalb/Creat Ratio 774.6 ug/mg 0.0-30.0 [facility] ([facility]) ID Date Data Source [id number] 08/12/2020 11:22:00 AM EDT [facility] ([facility]) Name Value Range Interpretation Code Description Data Shameka rce(s) Supporting Document(s) Cholesterol [Mass/volume] in Serum or Plasma 165 mg/dL 131-200 [facility] ([facility]) Triglyceride [Mass/volume] in Serum or Plasma 115 mg/dL 30-150 [facility] ([facility]) Cholesterol in HDL [Mass/volume] in Serum or Plasma 52 mg/dL 35-60 [facility] ([facility]) Cholesterol in LDL [Mass/volume] in Serum or Plasma by calcu lation 90 CALC 50-159 [facility] ([facility]) ID Date Data Source [id number] 08/12/2020 11:22:00 AM EDT [facility] ([facility]) Name Value Range Interpretation Code Description Data Shameka rce(s) Supporting Document(s) Glucose [Mass/volume] in Serum or Plasma 125 mg/dL 74-99 [facility] ([facility]) 100-125 mg/dL PRE-DIABETES/FASTING >126 mg/dL DIABETES/FASTING Creatinine 1.6 mg/dL 0.6-1.3 [facility] Urea nitrogen [Mass/volume] in Serum or Plasma 19 mg/dL 7-18 [facility] ([facility]) Potassium [Moles/volume] in Serum or Plasma 4.5 meq/L 3.5-5.1 [facility] ([facility]) Chloride [Moles/volume] in Serum or Plasma 102 meq/L 98-107 [facility] ([facility]) Sodium [Moles/volume] in Serum or Plasma 138 meq/L 136-145 [facility] ([facility]) Total Bilirubin 0.8 mg/dL 0.2-1.0 [facility] ([facility]) Alkaline phosphatase isoenzyme [Units/volume] in Serum or Pl asma 83 mg/dL 46-116 [facility] ([facility]) Calcium [Mass/volume] in Serum or Plasma 9.0 mg/dL 8.5-10.1 [facility] ([facility]) Carbon dioxide, total [Moles/volume] in Serum or Plasma 27 meq/L 21 -32 [facility] ([facility]) Aspartate aminotransferase [Enzymatic activity/volume] in Serum or Plasma 67 U/L 15-37 [facility] ([facility] ) Alanine aminotransferase [Enzymatic activity/volume] in Seru m or Plasma 48 U/L 12-78 [facility] ([facility]) Albumin [Mass/volume] in Serum or Plasma 3.5 g/dL 3.4-5.0 [facility] ([facility]) A/G Ratio 0.81 CALC 1.00-1.90 [facility] ([facility]) Proteinase 3 Ab [Units/volume] in Serum 7.8 g/dL 6.4-8.2 [facility] ([facility]) Glomerular filtration rate/1.73 sq M pre dicted among non-blacks [Volume Rate/Area] in Serum or Plasma by Creatinine-based formula (MDRD) 42 mL/min [facility] ([facility]) Glomerular filtration rate/1.73 sq M pre dicted among blacks [Volume Rate/Area] in Serum or Plasma by Creatinine-based formula (MDRD) 51 mL/min [facility] <content>CHRONIC KIDNEY DISEASE STAGING PER NKF</content>
<content></content>
<content>STAGE I & II GFR >= 60 NORMAL TO MILDLY DECREASED</content>
<content>STAGE III GFR 30-59 MODERATELY DECREASED</content>
<content>STAGE IV GFR 15-29 SEVERELY DECREASED</content>
<content>STAGE V GFR <15 VERY LITTLE GFR LEFT</content>
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
<content></content> ID Date Data Source [id number] 08/12/2020 11:22:00 AM EDT [facility] ([facility]) Name Value Range Interpretation Code Description Data Shameka rce(s) Supporting Document(s) Hemoglobin A1c/Hemoglobin.total in Blood 6.2 % [facility] Lab Result Notes: Pre-Diabetes 5.7 - 6.4 % Diabetes = or > 6.5% Glucose mean value [Mass/volume] in Blood Estimated fr om glycated hemoglobin 131 mg/dL 60-110 [facility] ([facility] ID Date Data Source [id number] 08/12/2020 11:22:00 AM EDT [facility] ([facility] Name Value Range Interpretation Code Description Data Shameka rce(s) Supporting Document(s) Erythrocytes [#/volume] in Blood by Automated count 4.85 x10*6/UL 4.2 0-6.30 [facility] ([facility] Leukocytes [#/volume] in Blood by Automated count 8.7 x10*3/UL 4.1-10 .9 [facility] ([facility] MCV 91.7 fL 80.0-97.0 [facility] ([facility]) MCH 32.2 pg 26.0-32.0 [facility] ([facility]) Hematocrit [Volume Fraction] of Blood by Automated count 44.5 % 3 7.0-51.0 [facility] ([facility] Hemoglobin [Mass/volume] in Blood 15.6 g/dL 12.0-18.0 [facility] ([facility] MCHC 35.1 g/dL 31.0-38.0 [facility] ([facility]) Platelets [#/volume] in Blood by Automated count 222 x10*3/UL 140-440 [facility] ([facility] Erythrocyte distribution width [Ratio] by Automated count 13.4 % 11.6-13.7 [facility] ([facility]) MPV 8.2 FL 7.8-11.0 [facility] ([facility]) Mid % 7.4 % 1.7-9.3 [facility] ([facility]) Lymph % 7.5 % 10.0-58.5 [facility] ([facility]) Neut % 85.1 % 37.0-92.0 [facility] ([facility]) Lymph # 0.6 x10*3/UL 0.6-4.1 [facility] ([facility]) Neut # 7.4 x10*3/UL 2.0-7.8 [facility] ([facility]) Mid # 0.7 x10*3/UL 0.1-0.6 [facility] ([facility]) Procedure Social History Code Duration Value Status Description Data Source(s ) Alcohol intake 08/28/2021 12:00:00 AM EDT Current drinker of al cohol (finding) completed Current drinker of alcohol (finding) [facility] Smoking 09/09/2020 12:00:00 AM EDT Patient is a former smoker completed Patient is a former smoker [facility] ([facility]) Vital Signs ID Date Data Source UNK Name Value Range Interpretation Code Description Data Source(s) Systolic blood pressure 120 mm[Hg] 120 mm[Hg] M EDENT ([facility]) Diastolic blood pressure 76 mm[Hg] 76 mm[Hg] [facility]) Body height 68 [in_i] 68 [in_i] [facility] ([facility]) 5'8" Body weight 134.00 [lb_av] 134.00 [lb_av] [facility] ([facility]) Body mass index (BMI) [Ratio] 20.4 kg/m2 20.4 k g/m2 [facility] ([facility]) Systolic blood pressure 100 mm[Hg] 100 mm[Hg] [facility] Diastolic blood pressure 60 mm[Hg] 60 mm[Hg] [facility] Heart rate 89 /min 89 /min [facility] Body height 177.8 cm 177.8 cm [facility] Body weight 65.772 kg 65.772 kg [facility] Body mass index (BMI) [Ratio] 20.81 kg/m2 20.81 kg/m2 [facility] Oxygen saturation in Arterial blood by Pulse oximetry 97 % 97 % [facility] Systolic blood pressure 110 mm[Hg] 110 mm[Hg] [facility] ([facility]) Diastolic blood pressure 74 mm[Hg] 74 mm[Hg] [facility] ([facility]) Heart rate 56 /min 56 /min [facility] ([facility]) Body height 68 [in_i] 68 [in_i] [facility] ([facility]) 5'8" Body weight 154.00 [lb_av] 154.00 [lb_av] [facility] T ([facility]) Oxygen saturation in Arterial blood by Pulse oximetry 97 % 97 % [facility] ([facility]) [facility] Body mass index (BMI) [Ratio] 23.4 kg/m2 23.4 k g/m2 [facility] ([facility]) Systolic blood pressure 112 mm[Hg] 112 mm[Hg] [facility] ([facility]) Diastolic blood pressure 76 mm[Hg] 76 mm[Hg] [facility] ([facility]) Heart rate 80 /min 80 /min [facility] ([facility]) Body height 68 [in_i] 68 [in_i] [facility] ([facility]) 5'8" Body weight 157.00 [lb_av] 157.00 [lb_av] [facility] T ([facility]) Body mass index (BMI) [Ratio] 23.9 kg/m2 23.9 k g/m2 [facility] ([facility]) Systolic blood pressure 102 mm[Hg] 102 mm[Hg] [facility] ([facility]) Diastolic blood pressure 50 mm[Hg] 50 mm[Hg] [facility] ([facility]) Body height 68 [in_i] 68 [in_i] [facility] ([facility]) 5'8" Body weight 157.00 [lb_av] 157.00 [lb_av] [facility] T ([facility]) Heart rate 62 /min 62 /min [facility] ([facility]) Body mass index (BMI) [Ratio] 23.9 kg/m2 23.9 k g/m2 [facility] ([facility]) Systolic blood pressure 128 mm[Hg] 128 mm[Hg] M [facility] Body mass index (BMI) [Ratio] 27.5 kg/m2 27.5 k g/m2 [facility] ([facility] Body height 68 [in_i] 68 [in_i] [facility] 5'8" Body weight 181.00 [lb_av] 181.00 [lb_av] [facility] T ([facility] Diastolic blood pressure 66 mm[Hg] 66 mm[Hg] [facility] ([facility] Heart rate 59 /min 59 /min [facility] ([facility] Systolic blood pressure 120 mm[Hg] 120 mm[Hg] M EDENT ([facility]) Diastolic blood pressure 80 mm[Hg] 80 mm[Hg] [facility] ([facility]) Systolic blood pressure 120 mm[Hg] 120 mm[Hg] M EDENT ([facility]) Diastolic blood pressure 80 mm[Hg] 80 mm[Hg] [facility] Heart rate 78 /min 78 /min [facility] ([facility] Body height 69 [in_i] 69 [in_i] [facility] 5'9" Body weight 180.00 [lb_av] 180.00 [lb_av] [facility] ([facility]) Body weight 81.648 kg 81.648 kg [facility] ([facility] Body mass index (BMI) [Ratio] 26.6 kg/m2 26.6 k g/m2 [facility] ([facility]) Systolic blood pressure 118 mm[Hg] 118 mm[Hg] M [facility]ENT ([facility]) Body height 68 [in_i] 68 [in_i] [facility] ([facility]) 5'8" Diastolic blood pressure 72 mm[Hg] 72 mm[Hg] [facility] ([facility]) Heart rate 70 /min 70 /min [facility] ([facility]) Body weight 187.00 [lb_av] 187.00 [lb_av] [facility] T ([facility]) Body mass index (BMI) [Ratio] 28.4 kg/m2 28.4 k g/m2 [facility] ([facility]) Patient Treatment Plan of Care Planned Activity Planned Date Details Description Data Source (s) midodrine hydrochloride 2.5 MG Oral Tablet 08/28/2021 12:00:00 AM E DT [facility] albuterol (PROVENTIL HFA;VENTOLIN HFA) 108 (90 Base) M CG/ACT inhaler 08/13/2021 12:00:00 AM EDT [facility] Acetaminophen 325 MG Oral Tablet 08/13/2021 12:00:00 AM EDT [facility] Finasteride 5 MG Oral Tablet 07/14/2021 12:00:00 AM EDT [facility] Ergocalciferol [id number] UNT Oral Capsule 07/07/2021 12:00:00 AM EDT [facility] Levothyroxine Sodium 0.088 MG Oral Tablet 06/18/2021 12:00:00 AM ED T [facility] gabapentin 100 MG Oral Capsule 06/18/2021 12:00:00 AM EDT [facility] Folic Acid 1 MG Oral Tablet 06/18/2021 12:00:00 AM EDT [facility] Vitamin B 12 0.5 MG Oral Tablet 06/18/2021 12:00:00 AM EDT [facility] atorvastatin 20 MG Oral Tablet 06/18/2021 12:00:00 AM EDT [facility] apixaban 2.5 MG Oral Tablet 06/18/2021 12:00:00 AM EDT [facility] Metoprolol Tartrate 25 MG Oral Tablet 06/12/2021 12:00:00 AM EDT [facility] 24 HR metoprolol succinate 100 MG Extended Release Ora l Tablet 05/19/2020 12:00:00 AM EDT [facility] Lovastatin 40 MG Oral Tablet 07/28/2018 12:00:00 AM EDT [facility] rivaroxaban 15 MG Oral Tablet 05/31/2014 12:00:00 AM EDT [facility] Levothyroxine Sodium 0.088 MG Oral Tablet [facility]
[2021-09-14] MEDS ORDERED: METO25TA4 PO (21:37)
[2021-09-14] MEDS ORDERED: FLOM0.4C39 PO (21:37)
[2021-09-14] MEDS ORDERED: PROAAER10 INH (21:37)
[2021-09-14] MEDS ORDERED: HOME MED LIST COMPLETE! XX SCH (21:40)
[2021-09-14 21:44] LABS: RSV AMPLIFICATION NEGATIVE (NEGATIVE)
--- NOTE | 2021-09-14 21:58 | HPEPDOC ---
General Date of Admission 09/14/21 Date of Service: Sep 14, 2021 Chief Complaint The patient is a 76-year-old male admitted with a reason for visit of Dizziness. Source: Patient History of Present Illness Raúl Gomez is a 76 year old male with CAD s/p CABG and ESRD on dialysis T,,Tue who is here with dizziness s/p fall. Pt reports he has had dizziness at times, he was recently admitted in earlier August for dizziness and was found to be orthostatic. He reports after discharge he had improvement in this feeling, but recently past 2 days despite slow position changes he was still dizzy. He endorses falling yesterday night and again this AM. He describes feeling so poorly he laid in bed the rest of the day and because of this, his called EMS. Pt reports he has reportedly been increased time on his HD to 3hr 15 minutes. Pt denies spence, sinus congestion, sore throat, productive cough, sob, palpitations, chest pain, n/v/d, abdominal pain, sensory changes or syncope. Patient was recently started on midodrine Earlier in August; he reports he has been compliant with this medication. Imaging nonacute CT head/ cspine. Rib xray nonacute and no acute lung infiltrate identified. Initial labs with leukocytosis 12.1, Cr 4.3/ k 3.1. Pt afebrile and not tachycardic. Orthostatic VS taken, pt positive. Patient was given a small fluid bolus of 500mL in ED given his dialysis history. He reports he is feeling a little improved after his fluids in ED. Patient will be admitted for further evaluation and management of presenting concerns. Home Medications Scheduled Apixaban (Eliquis) 2.5 Mg Tablet, 2.5 MG PO BID, (Reported) Atorvastatin Calcium (Atorvastatin Calcium) 20 Mg Tablet, 20 MG PO QHS, (Reported) Ergocalciferol (Vitamin D2) (Drisdol) 1,250 Mcg Capsule, 50,000 UNIT PO QWEEK, (Reported) TUESDAYS Finasteride (Finasteride) 5 Mg Tablet, 5 MG PO DAILY, (Reported) Folic Acid (Folic Acid) 1 Mg Tablet, 1 MG PO DAILY, (Reported) Levothyroxine Sodium (Levoxyl) 88 Mcg Tab, 88 MCG PO DAILY, (Reported) Metoprolol Tartrate (Metoprolol Tartrate) 25 Mg Tablet, 12.5 MG PO DAILY, (Reported) Midodrine HCl (Midodrine HCl) 2.5 Mg Tablet, 2.5 MG PO BID, (Reported) Sertraline HCl (Sertraline HCl) 25 Mg Tablet, 50 MG PO QHS, (Reported) Tamsulosin HCl (Flomax) 0.4 Mg Capsule, 0.4 MG PO QPM, (Reported) TAKES AROUND DINNERTIME Scheduled PRN Albuterol Sulfate (Proair Hfa) 8.5 Gm Hfa.aer.ad, 2 PUFF INH Q4H PRN for SHORTNESS OF BREATH, (Reported) Allergies Coded Allergies: No Known Allergies (Verified , 08/01/18) Past Medical History Medical History 1. CAD s/p CABG 2. Atrial fibrillation 3. Mitral valve annuloplasty 4. Aortic stenosis 5. Hypertension 6. History of C.diff colitis 7. ESRD on dialysis T,TH, Sat 8. IgA nephropathy 9. Secondary hyperparathyroidism 10. Anemia 11. Gout 12. Hypothyroidism Surgical History 1. CABG 2. Mitral valve annuloplasty 3. HD access Family History Parents ; father at 92 and mother at 77. Unknown medical history. Social History * Smoker: former Smoker Alcohol: Denies Drugs: denies Recent Travel/Sick Contacts: Denies: Recent travel, Recent sick contacts Psychosocial History: Depression A-FIB/CHADSVASC A-FIB History Current/History of A-Fib/PAF?: Yes Current PO Anticoag Therapy: Yes Review of Systems Constitutional: Reports: Fatigue; Denies: Chills, Fever, Night Sweats Eyes: Denies: Pain, Vision change ENT: Denies: Head Aches, Ear Pain, Dysphagia Skin: Denies: Rash, Lesions, Breakdown Pulmonary: Denies: Dyspnea, Cough Cardiovascular: Reports: Lt Headedness; Denies: Chest Pain, Palpitations, Orthopnea, Paroxysmal Noc. Dyspnea Gastrointestinal: Denies: Nausea, Vomiting, Abdominal Pain, Diarrhea Genitourinary: Denies: Dysuria, Frequency, Incontinence, Retention Hematologic: Denies: Bruising, Bleeding Excessively Musculoskeletal: Denies: Neck Pain, Back Pain, Joint Pain, Muscle Pain, Spasms Neurological: Denies: Weakness, Numbness, Change in speech, Confusion Psych: Reports: Mood Normal; Denies: Depression, Memory Issues Physical Examination General Exam: Positive: Alert, Cooperative, No Acute Distress Eye Exam: Positive: PERRLA, Conjunctiva & lids normal, EOMI; Negative: Sclera icteric ENT Exam: Positive: Atraumatic, Mucous membr. moist/pink, Pharynx Normal Neck Exam: Positive: Supple; Negative: JVD, thyromegaly Chest Exam: Positive: Clear to auscultation, Normal air movement Heart Exam: Positive: Rate Normal, Regular Rhythm, Normal S1, Normal S2; Negative: Murmurs, Rubs Telemetry: Positive: No significant arrhythmia Abdomen Exam: Positive: Normal bowel sounds, Soft; Negative: Tenderness, Hepatospenomegaly Extremity Exam: Positive: Normal pulses; Negative: Clubbing, Cyanosis, Edema Skin Exam: Positive: Nl turgor and temperature; Negative: Breakdown, Lesion Neuro Exam: Positive: Normal Gait, Normal Speech, Cranial Nerves 3-12 NL, Reflexes 2+ Psych Exam: Positive: Mental status NL, Mood NL, Oriented x 3 Vital Signs Vital Signs Date Time Temp Pulse Resp B/P (MAP) Pulse Ox O2 Delivery O2 Flow Rate FiO2 09/14/21 18:09 66 113/61 (78) 65 83/50 (61) 09/14/21 18:07 16 98 Room Air 09/14/21 16:32 97.3 Laboratory Data Labs 24H Laboratory Tests 2 09/14/21 17:36: Immature Granulocyte % (Auto) 1.2, Neutrophils (%) (Auto) 76.3H, Lymphocytes (%) (Auto) 9.3L, Monocytes (%) (Auto) 10.8H, Eosinophils (%) (Auto) 1.7, Basophils (%) (Auto) 0.7, Neutrophils # (Auto) 9.2H, Lymphocytes # (Auto) 1.1L, Monocytes # (Auto) 1.3H, Eosinophils # (Auto) 0.2, Basophils # (Auto) 0.1, Nucleated Red Blood Cells % (auto) 0.0, Anion Gap 8, Glomerular Filtration Rate 14.4L, Calcium Level 9.3, Magnesium Level 1.9, Total Bilirubin 0.7, Direct Bilirubin 0.2, Aspartate Amino Transf (AST/SGOT) 26, Alanine Aminotransferase (ALT/SGPT) 18, Alkaline Phosphatase 110, Total Creatine Kinase 83, Creatine Kinase MB 1.7, Creatine Kinase MB Relative Index 2.05, Troponin I 0.03, Total Protein 6.2L, Albumin 2.5L, Albumin/Globulin Ratio 0.7, Thyroid Stimulating Hormone (TSH) 0.221L, Free Thyroxine 1.55H CBC/BMP Laboratory Tests 09/14/21 17:36 Assessment/Plan Mr. Gomez is a 76 year old male with CAD s/p CABG and ESRD on dialysis T,,Sat who is here with c/o dizziness and recent fall. CT head/ cspine nonacute. Patient is orthostatic positive; he has a significant hx of this. 1. Dizziness 2/2 Orthostasis: -Lying 113/61, sitting 83/60 -Patient was given 500mL in the ED -Tamsulosin held given s/e of orthostatic hypotension -Increased Midodrine to 5mg TID. 2. Leukocytosis without lactic acidosis: wbc 12.2, lactic 1.7, cpk 83. Pt afebrile, not tachycardic. PCR neg. CXR without acute infiltrate. Pt ESRD with little to no urine production- no complaints of suprapubic discomfort or nausea. He had recent admission Sep 03. BC has been sent. -Monitor for signs symptoms infection. -AM labs. Consider differential/ empiric coverage pend clinical course. 3. ESRD on dialysis T,,Sat: Pt reports he had increased chair time recently. -Nephrology consulted, appreciate recommendations; D/w Dr. Marinelli and in agreement for midodrine TID -Renal diet 3. Atrial fibrillation - Tele monitoring -Continue apixaban 4. CAD s/p CABG -Continue atorvastatin 5. BPH - Held tamsulosin due to orthostatic hypotension 6. Hypothyroidism -TSH mildly low, t4 1.55 -Continue with levothyroxine 7. Anxiety/depression -Continue sertraline DVT ppx: Apixaban CODE Status: FULL Disposition: Pending improvement in orthostatic hypotension Plan / VTE VTE Prophylaxis Ordered?: Yes SANDEE STARK NP Sep 14, 2021 19:34
[2021-09-14] MEDS ORDERED: ALBUTEROL 90 MCG/ACT 8GM HFA INHALER INH PRN (22:10)
[2021-09-14 23:49] VITALS: BP 125/51
[2021-09-15] MEDS: APIXABAN 2.5 MG TAB (ELIQUIS) PO SCH ×3 (00:57→20:10)
[2021-09-15] MEDS: ATORVASTATIN 20 MG TAB PO SCH ×2 (00:57→20:10)
[2021-09-15] MEDS: SERTRALINE HCL 25 MG TABLET PO SCH ×2 (00:57→20:11)
[2021-09-15 06:00] VITALS: BP 106/57
--- NOTE | 2021-09-15 06:21 | ECGEPIP ---
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
[2021-09-15 06:25] VITALS: BP_SYST 107; BP_SYST 120; BP_DIAS 51; BP_DIAS 52
[2021-09-15] MEDS: LEVOTHYROXINE 88MCG TABLET (0.088 MG) PO SCH (06:44)
[2021-09-15] MEDS: METOPROLOL TART 12.5 MG PER 1/2 TAB PO SCH (08:24)
[2021-09-15] MEDS: FOLIC ACID 1 MG TAB PO SCH (08:25)
[2021-09-15] MEDS: FINASTERIDE 5 MG TAB PO SCH (08:25)
[2021-09-15] MEDS: MIDODRINE 5 MG TAB PO SCH ×3 (08:25→15:18)
[2021-09-15 08:43] VITALS: BP_SYST 104; BP_SYST 64; BP_DIAS 40; BP_DIAS 51
[2021-09-15 10:01] LABS: BASO # 0.1 10^3/uL (0.0-0.2); BASO % 0.6 % (0.0-1.0); EOS # 0.2 10^3/uL (0.0-0.5); EOS % 2.5 % (0.0-3.0); HEMATOCRIT 28.1 % (42.0-52.0); HEMOGLOBIN 9.2 g/dl (13.5-17.5); LYMPH # 1.1 10^3/uL (1.5-5.0); LYMPH % 11.9 % (24.0-44.0); MEAN CORPUSCULAR HEMOGLOBIN 30.4 pg (27.0-33.0); MEAN CORPUSCULAR HGB CONC 32.7 g/dl (32.0-36.5); MEAN CORPUSCULAR VOLUME 92.7 fl (80.0-96.0); MONO # 0.9 10^3/uL (0.0-0.8); MONO % 9.8 % (2.0-8.0); NEUTROPHILS # 7.1 10^3/uL (1.5-8.5); NEUTROPHILS % 73.6 % (36.0-66.0); PLATELET COUNT, AUTOMATED 171 10^3/uL (150-450); RED BLOOD COUNT 3.03 10^6/uL (4.30-6.10); WHITE BLOOD COUNT 9.6 10^3/uL (4.0-10.0)
[2021-09-15 10:26] LABS: CALCIUM LEVEL 9.2 MG/DL (8.8-10.2); CREATININE FOR GFR 4.39 MG/DL (0.70-1.30)
--- NOTE | 2021-09-15 11:59 | IPNPDOC ---
Text Note Date of Service The patient was seen on 09/15/21. NOTE S: Patient seen and evaluated at bedside this a.m. He tells me he is feeling better compared to when he first presented to the hospital. Reports dizziness with change in position and occasionally while laying flat. He describes his dizziness as feeling like he is spinning. Denies changes in vision, headache, chest pain, palpitations, difficulty breathing, cough. Denies recent illness. He does report frequent falls, of which he had 2 prior to ED presentation on 09/14, secondary to his dizziness and generalized weakness. He tells me that he uses a walker at baseline to assist with ambulation but, despite this, continues to fall at home. He does tell me he has loss of consciousness when falling and has hit his head, bilateral elbows, right knee. Reports 40 pound weight loss since 04/2021 and he does tell me he has decreased appetite and that "nothing tastes good." Denies acute bleeding, specifically noted in stool, urine, sputum. Denies abdominal pain, nausea, vomiting, changes in urination, changes in bowel movement. O: GEN: Alert, awake, laying in bed, NAD HEENT: NC/AT, EOMI, nares patent, moist mucous membranes CARDIO: RRR, normal heart sounds, 5/6 systolic murmur, no RG. Orthostasis performed during evaluation this a.m. with supine BP 104/51, sitting BP 64/40. PULM: CTA b/l, no WRR, no accessory muscles used ABD: soft, nontender, nondistended, normal BS EXTREMITIES: Allevyn bandage on left elbow and right knee clean, intact, unsaturated with signature and date. Gauze wrapped around right elbow without surrounding erythema, pain with palpation, warmth. 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 (09/14)x-ray bilateral elbow No fracture or dislocation. (09/14) CT head without contrast 1. No acute intracranial pathology. 2. Chronic findings, as above. (09/14) x-ray ribs, left No evidence of left rib fracture. Stable chronic findings in the lungs. A/P: Raúl is a 76-year-old male w/ history of orthostatic hypotension, ESRD on HD T/R/Sat, CAD s/p CABG who presents with worsening dizziness and frequent falls and found to have positive orthostasis now with unimproved dizziness and re porting occasional symptoms while supine. #Dizziness 2/2 orthostasis Supine BP 104/51, sitting BP 64/40 with symptoms. Continue midodrine 5mg 3 times daily Of note, patient recently hospitalized 09/03-09/04 for orthostatic hypotension. #Frequent falls 2/2 dizziness and deconditioning Imaging, noted above PT/OT #Hypomagnesemia, acute, asx (09/15) Mg2+ 1.7 Will recheck Mg2+ and replete if necessary #Leukocytosis without LA-resolved (09/15) WBC 9.6 #ESRD on HD T/R/Sat- stable (09/15) BUN 25, CR 4.39, which is at patient's baseline Nephrology on consult, appreciate recommendations Of note, patient began HD during hospitalization 04/27-05/06 rhabdomyolysis 2/2 fall and dehydration 2/2 acute C. difficile colitis. The patient has been in and out of the hospital with multiple admissions since then, most recently 09/03-09/04 for orthostatic hypotension for which he was discharged on midodrine . According to patient's nurse, his dialysis session has decreased from 3.5 hours to just over 3 hours. #A. fib, chronic-stable HR 70 this a.m. Patient found to have regular rhythm on examination. On telemetry Continue metoprolol 12.5 mg daily Continue home apixaban 2.5 mg twice daily #CAD s/p CABG-stable Most recent echocardiogram (04/2021) LVEF 50-55% Continue atorvastatin 20 mg #BPH, chronicstable Hold home tamsulosin, pending clinical improvement #Hypothyroidism, chronicstable (09/14) TSH 0.22, T4 1.55 Continue home levothyroxine 88 mcg #Anxiety/depression, chronicstable Continue home sertraline 50 mg #DVT Prophylaxis Continue apixaban 2.5 mg twice daily DIET: Renal ACTIVITY: As tolerated, fall precautions DISPO: Home, pending clinical improvement Attending Attestation: I saw and evaluated the patient. I agree with the finding and the plan of care as documented in the residents note. VS,Quirino, I+O VS, Fishbone, I+O Laboratory Tests 09/14/21 17:36 09/15/21 09:19 Vital Signs Date Time Temp Pulse Resp B/P (MAP) Pulse Ox O2 Delivery O2 Flow Rate FiO2 09/15/21 08:43 70 104/51 (68) 72 64/40 (48) 09/15/21 06:00 97.8 18 96 Room Air I&O- Last 24 Hours up to 6 AM 09/15/21 05:59 Intake Total 0 ml Output Total 75 ml Balance -75 ml Ania Galdamez DO Sep 15, 2021 11:59 ARTHUR SMITH MD Sep 16, 2021 07:40
[2021-09-15 15:15] VITALS: BP 105/52
--- NOTE | 2021-09-15 19:55 | CR ---
NEPHROLOGY CONSULTATION DATE: 09/15/2021 REQUESTING PHYSICIAN: Dr. Jones Sears CONSULTING PHYSICIAN: Dr. Guadalupe Marinelli REASON FOR CONSULTATION: To assist in the management of end-stage renal disease. Note: I was called by the admitting nurse practitioner and the case was discussed with her last evening. HISTORY OF PRESENT ILLNESS: Mr. Gomez is a 76-year-old gentleman with a known history of coronary artery disease, end-stage renal disease, recurrent falls at home and atrial fibrillation. He also has mitral and aortic valve disease and a prior history of C-diff colitis. He has been dialysis dependent for at least 3 months with no recovery of kidney function. He presented to the Emergency Room on September 14 due to worsening dizziness and fall at home. He was found to have significant orthostatic hypotension and was admitted. The patient did receive his hemodialysis on Tuesday. I was called by the admitting nurse practitioner and the case was discussed with her. I recommended to increase the Midodrine dose to 5 mg three times daily. The patient has already been given fluid bolus in the Emergency Room. PAST MEDICAL AND SURGICAL HISTORY: The patient's past medical and surgical history is significant for: 1. Coronary artery disease, status post CABG. 2. Atrial fibrillation. 3. Mitral valve disease, status post mitral annuloplasty. 4. Aortic stenosis. 5. Hypertension. 6. History of C-diff colitis. 7. History of end-stage renal disease requiring maintenance hemodialysis. 8. History of secondary hyperparathyroidism. 9. Anemia. 10. Gout. 11. Hypothyroidism. PAST SURGICAL HISTORY: The patient's past surgical history is significant for 1. CABG. 2. Mitral valve annuloplasty. 3. Permacath placement for hemodialysis. MEDICATIONS: His home medications include: 1. Eliquis 2.5 mg twice daily. 2. Atorvastatin 20 mg daily. 3. Vitamin D 50,000 units once a week. 4. Finasteride 5 mg daily. 5. Folic Acid one mg daily. 6. Levothyroxine 88 mcg daily. 7. Metoprolol Tartrate 12.5 mg daily. 8. Midodrine 2.5 mg twice daily. 9. Sertraline 25 mg, 50 mg at bedtime. 10. Flomax 0.4 mg at bedtime. ALLERGIES: He has no known drug allergies. FAMILY HISTORY: Unremarkable and negative for end-stage renal disease. PERSONAL SOCIAL HISTORY: The patient is a former smoker and denies alcohol or tobacco use. REVIEW OF SYSTEMS: Constitutional: The patient denies any fevers or chills. He has a history of recurrent falls and admissions to the hospital. He has been admitted at least twice before with similar problems. He has a known history of aortic stenosis, however it is not felt to be severe enough to cause his orthostatic hypotension. Ears, Nose and Throat: Unremarkable. Cardiovascular System: Significant for aortic stenosis and a history of recurrent orthostatic hypotension and falls. Respiratory System: Negative for cough or hemoptysis. GI System: Negative for vomiting or diarrhea. He does have a prior history of C-difficile colitis. Genitourinary System: Significant for benign prostatic hypertrophy and difficulty voiding. He has been on Flomax and Proscar which could also probably contribute to his orthostatic hypotension. Musculoskeletal System: Significant for recent falls and weakness of legs. He denies any leg edema. Hematological System: Significant for chronic anticoagulation due to atrial fibrillation and anemia of chronic kidney disease. Endocrine System: Negative for diabetes. He does have secondary hyperparathyroidism. Skin: Negative for rash or ulcers. Neurological System: Negative for seizures or stroke. PHYSICAL EXAMINATION: VITAL SIGNS: Temperature 97.8 degrees Fahrenheit, heart rate 70 per minute and respiratory rate 18 per minute. His blood pressure is 120/52 mm of mercury supine and 107/50 mm of mercury sitting. Oxygen saturation is 96% on room air. HEENT: His head is atraumatic. NECK: Supple and without JVD or thyroid enlargement. CHEST: Hemodialysis catheter is present in the right upper chest. HEART: Sounds are regular. LUNGS: Clear to auscultation. ABDOMEN: Soft and nontender and bowel sounds are normal. EXTREMITIES: Without any cyanosis or clubbing. He does not have any peripheral edema. NEUROLOGICAL: He is at his baseline mentation without any focal deficits. LABORATORY STUDIES: On admission WBC count was 12.1, hemoglobin 10.3 and hematocrit 30.9. Sodium 138, potassium 3.9, CO2 29, BUN 22 and creatinine 4.28, glucose 89 and lactic acid 1.7. Albumin level 2.5 and total protein 6.2. PROBLEMS: 1. End-stage renal disease - The patient is regularly dialyzed on a Tuesday, and Tuesday schedule. He was last dialyzed on Tuesday and we will plan his next dialysis according to his schedule. At this point there is no emergent need for dialysis. 2. Orthostatic hypotension - This is a chronic issue and he has recently been started on low dose Midodrine. I recommended to increase the Midodrine dose to 5 mg three times daily. He should be given a dose just before dialysis. 3. Anemia he has anemia of chronic kidney disease which is not any significantly worse. At this point we are going to monitor and we will administer Aranesp if needed next week. 4. History of congestive heart failure his volume status is very well compensated and probably he is somewhat volume depleted. He did receive a fluid bolus in the Emergency Room last evening and we will not remove any dialysis today. The patient is being dialyzed this afternoon. Thank you for involving me in the care of Mr. Gomez. He will be dialyzed later today.
[2021-09-15 22:00] VITALS: BP_SYST 102; BP_SYST 114; BP_SYST 82; BP_DIAS 49; BP_DIAS 59; BP_DIAS 93
[2021-09-16 06:00] VITALS: BP 114/56
[2021-09-16 06:11] LABS: BASO # 0.1 10^3/uL (0.0-0.2); BASO % 0.9 % (0.0-1.0); EOS # 0.4 10^3/uL (0.0-0.5); EOS % 3.6 % (0.0-3.0); HEMATOCRIT 28.1 % (42.0-52.0); HEMOGLOBIN 9.1 g/dl (13.5-17.5); LYMPH # 1.1 10^3/uL (1.5-5.0); LYMPH % 11.6 % (24.0-44.0); MEAN CORPUSCULAR HEMOGLOBIN 30.1 pg (27.0-33.0); MEAN CORPUSCULAR HGB CONC 32.4 g/dl (32.0-36.5); MONO # 0.8 10^3/uL (0.0-0.8); MONO % 8.5 % (2.0-8.0); NEUTROPHILS # 7.3 10^3/uL (1.5-8.5); NEUTROPHILS % 74.4 % (36.0-66.0); PLATELET COUNT, AUTOMATED 185 10^3/uL (150-450); RED BLOOD COUNT 3.02 10^6/uL (4.30-6.10); WHITE BLOOD COUNT 9.8 10^3/uL (4.0-10.0)
[2021-09-16] MEDS: LEVOTHYROXINE 88MCG TABLET (0.088 MG) PO SCH (06:13)
[2021-09-16 06:32] LABS: CALCIUM LEVEL 8.6 MG/DL (8.8-10.2); CREATININE FOR GFR 2.54 MG/DL (0.70-1.30); GLOMERULAR FILTRATION RATE 26.2 (>42); POTASSIUM SERUM 3.9 MEQ/L (3.5-5.1)
[2021-09-16] MEDS: APIXABAN 2.5 MG TAB (ELIQUIS) PO SCH ×2 (08:03→22:13)
[2021-09-16] MEDS: METOPROLOL TART 12.5 MG PER 1/2 TAB PO SCH (08:03)
[2021-09-16] MEDS: FINASTERIDE 5 MG TAB PO SCH (08:03)
[2021-09-16] MEDS: FOLIC ACID 1 MG TAB PO SCH (08:03)
[2021-09-16] MEDS: MIDODRINE 5 MG TAB PO SCH ×3 (08:03→15:51)
[2021-09-16 09:27] LABS: MAGNESIUM LEVEL 1.7 MG/DL (1.8-2.4)
--- NOTE | 2021-09-16 10:35 | IPNPDOC ---
Text Note Date of Service The patient was seen on 09/16/21. NOTE S: Patient seen and evaluated at bedside this a.m. He tells me he is feels well he denies any acute complaints. Denies dizziness at rest and while supine. Denies chest pain, palpitations, shortness of breath, changes in vision, lightheadedness. Patient did receive dialysis yesterday, as per his regular schedule and tells me he had no complications. He does report fatigue following dialysis session, which is not abnormal. He tells me he has not been seen or evaluated by physical therapy yet. He tells me he has difficulty ambulating to and from the bathroom. Denies changes in urination, changes in bowel movements. O: GEN: Alert, awake, laying in bed, NAD HEENT: NC/AT, EOMI, nares patent, moist mucous membranes CARDIO: RRR, normal heart sounds, 4/6 systolic murmur, no RG. PULM: CTA b/l, no WRR, no accessory muscles used ABD: soft, nontender, nondistended, normal BS EXTREMITIES: Allevyn bandage on left elbow and right knee clean, intact, unsaturated with signature and date. Gauze wrapped around right elbow without s urrounding erythema, pain with palpation, warmth. Multiple 1cm biopsy sites on bilateral toes, healing, without surrounding skin changes or signs of infection. No edema, normal ROM NEURO: no gross focal neuro deficits IMAGING: (09/14) CT cervical spine without contrast No acute findings in the cervical spine. (09/14)x-ray bilateral elbow No fracture or dislocation. (09/14) CT head without contrast 1. No acute intracranial pathology. 2. Chronic findings, as above. (09/14) x-ray ribs, left No evidence of left rib fracture. Stable chronic findings in the lungs. A/P: Raúl is a 76-year-old male w/ history of orthostatic hypotension, ESRD on HD T/R/Sat, CAD s/p CABG who presents with worsening dizziness and frequent falls and found to have positive orthostasis now with improved dizziness at rest. #Dizziness 2/2 orthostasis BP this a.m. 111/47. Orthostatics had not been taken prior to evaluation this morning. Start midodrine 10mg 3 times daily Of note, patient recently hospitalized 09/03-09/04 for orthostatic hypotension. He tells me he had an improved symptoms upon discharge. When reviewing patient's chart and recent hospitalization, patient's hospital course and management is unclear. #Frequent falls 2/2 dizziness and deconditioning Imaging, noted above Continue PT/OT #Hypomagnesemia, acute, asx (09/16) Mg2+ 1.7 We will give patient 1 angela Recheck Mg2+ 09/17 0600 #ESRD on HD T/R/Sat- stable (09/16) BUN 13, CR 2.54, which is at patient's baseline Patient did receive dialysis 09/15, as per schedule. No complications Nephrology on consult, appreciate recommendations Of note, patient began HD during hospitalization 04/27-05/06 rhabdomyolysis 2/2 fall and dehydration 2/2 acute C. difficile colitis. The patient has been in a [facility] with multiple admissions since then, most recently 09/03-09/04 for orthostatic hypotension for which he was discharged on midodrine. According to patient's nurse, his dialysis session has decreased from 3.5 hours to just over 3 hours. #A. fib, chronic-stable HR 63 this a.m. Patient found to have regular rhythm on examination. On telemetry Continue metoprolol 12.5 mg daily Continue home apixaban 2.5 mg twice daily #Leukocytosis without LA-resolved Continue to monitor labs #CAD s/p CABG-stable Most recent echocardiogram (04/2021) LVEF 50-55% Continue atorvastatin 20 mg #BPH, chronicstable Hold home tamsulosin, pending clinical improvement #Hypothyroidism, chronicstable Continue home levothyroxine 88 mcg #Anxiety/depression, chronicstable Continue home sertraline 50 mg #DVT Prophylaxis Continue apixaban 2.5 mg twice daily DIET: Renal ACTIVITY: As tolerated, fall precautions DISPO: Home, pending clinical improvement Attending Attestation: I saw and evaluated the patient. I agree with the finding and the plan of care as documented in the residents note. VS,Chine, I+O VS, Rodneybone, I+O Laboratory Tests 09/16/21 05:41 Vital Signs Date Time Temp Pulse Resp B/P (MAP) Pulse Ox O2 Delivery O2 Flow Rate FiO2 09/16/21 08:03 62 111/47 09/16/21 06:00 98.0 16 98 Room Air I&O- Last 24 Hours up to 6 AM 09/16/21 06:00 Intake Total 350 ml Output Total 75 ml Balance 275 ml Ania Galdamez DO Sep 16, 2021 10:35 ARTHUR SMITH MD Sep 17, 2021 06:22
[2021-09-16] MEDS ORDERED: MAG SULF 1GM/100ML (MAG RUN) 1 GM in IV 1 EA IV ONE (11:00)
[2021-09-16 14:00] VITALS: BP 107/61
--- NOTE | 2021-09-16 14:33 | IPN ---
NEPHROLOGY PROGRESS NOTE DATE: 09/16/2021 SUBJECTIVE: Mr. Gomez is seen this morning on his bedside. He is still not feeling good and reports feeling dizzy. He was dialyzed yesterday without any fluid removal. He denies any nausea or vomiting, but has poor appetite. He has no dyspnea, chest pain, fever or chills. PHYSICAL EXAMINATION: Temperature 98 degrees Fahrenheit, heart rate 62 per minute and respiratory rate 16 per minute. Blood pressure 102/59 mmHg supine and 82/49 mmHg sitting. His oxygen saturation is 98% on room air. Head: Atraumatic. Neck: Supple and without JVD or thyroid enlargement. Heart: Sounds are regular. Lungs: Clear to auscultation. Abdomen: Soft and nontender and bowel sounds are normal. Extremities: Without any cyanosis or clubbing. Neurologically: He is awake, alert and oriented times 3. LABORATORY DATA: Today's labs show: WBC count 9.8, hemoglobin 9.1, hematocrit 28. Sodium 138, potassium 3.9, BUN 13, creatinine 2.54. PROBLEMS/PLAN: 1. End-stage renal disease: Patient was dialyzed yesterday and he tolerated dialysis well. His next dialysis will be scheduled for tomorrow. 2. Orthostatic hypotension: Probably this is partly related to volume depletion and partly this chronic autonomic dysfunction. He has been on midodrine and the dose has been increased to 10 mg three times a day by the hospitalist service which his appropriate and I agree with it. 3. Anemia: His anemia is stable and chronic. No intervention needed at this point. His anemia will be managed with dialysis. 4. History of urinary retention: He did have problems urinating a few days ago and was scheduled for an outpatient bladder ultrasound which has not been done. We did a bedside bladder scan and he had only 68 mL residual. I do not feel that he has any residual now. He remains on low dose finasteride and 5 mg finasteride will be continued. He is not suitable for tamsulosin due to orthostatic hypotension.
[2021-09-16 15:58] VITALS: BP_SYST 110; BP_SYST 85; BP_SYST 86; BP_DIAS 47; BP_DIAS 61
[2021-09-16 22:00] VITALS: BP_SYST 103; BP_SYST 128; BP_SYST 133; BP_SYST 97; BP_DIAS 46; BP_DIAS 49; BP_DIAS 55; BP_DIAS 56
[2021-09-16] MEDS: ATORVASTATIN 20 MG TAB PO SCH (22:13)
[2021-09-16] MEDS: SERTRALINE HCL 25 MG TABLET PO SCH (22:14)
[2021-09-17] MEDS: LEVOTHYROXINE 88MCG TABLET (0.088 MG) PO SCH (06:00)
[2021-09-17 06:37] LABS: BASO # 0.1 10^3/uL (0.0-0.2); BASO % 0.6 % (0.0-1.0); EOS # 0.3 10^3/uL (0.0-0.5); EOS % 3.3 % (0.0-3.0); HEMATOCRIT 27.4 % (42.0-52.0); LYMPH # 1.3 10^3/uL (1.5-5.0); LYMPH % 12.6 % (24.0-44.0); MEAN CORPUSCULAR HEMOGLOBIN 30.8 pg (27.0-33.0); MEAN CORPUSCULAR HGB CONC 32.8 g/dl (32.0-36.5); MEAN CORPUSCULAR VOLUME 93.8 fl (80.0-96.0); MONO % 9.4 % (2.0-8.0); NEUTROPHILS # 7.5 10^3/uL (1.5-8.5); NEUTROPHILS % 72.8 % (36.0-66.0); PLATELET COUNT, AUTOMATED 197 10^3/uL (150-450); RED BLOOD COUNT 2.92 10^6/uL (4.30-6.10); WHITE BLOOD COUNT 10.3 10^3/uL (4.0-10.0)
[2021-09-17 07:04] LABS: CALCIUM LEVEL 8.8 MG/DL (8.8-10.2); CREATININE FOR GFR 3.41 MG/DL (0.70-1.30); GLOMERULAR FILTRATION RATE 18.7 (>42); MAGNESIUM LEVEL 2.2 MG/DL (1.8-2.4); POTASSIUM SERUM 3.9 MEQ/L (3.5-5.1)
[2021-09-17] MEDS: FINASTERIDE 5 MG TAB PO SCH (08:02)
[2021-09-17] MEDS: FOLIC ACID 1 MG TAB PO SCH (08:02)
[2021-09-17] MEDS: MIDODRINE 5 MG TAB PO SCH ×3 (08:02→16:25)
[2021-09-17] MEDS: APIXABAN 2.5 MG TAB (ELIQUIS) PO SCH ×2 (08:02→22:07)
[2021-09-17 08:03] VITALS: BP 94/41
[2021-09-17] MEDS: METOPROLOL TART 12.5 MG PER 1/2 TAB PO SCH (08:03)
--- NOTE | 2021-09-17 09:48 | IPNPDOC ---
Text Note Date of Service The patient was seen on 09/17/21. NOTE S: Patient seen and evaluated at bedside this a.m. He was awoken from sleep and tells me he is feels well. He tells me he felt dizzy handful of times yesterday, mostly related to changing position. Denies falls. Denies dizziness changes in vision while supine. Denies chest pain, palpitations, shortness of breath. O: GEN: Alert, awake, laying in bed, NAD HEENT: NC/AT, EOMI, nares patent, moist mucous membranes CARDIO: RRR, normal heart sounds, 4/6 systolic murmur, no RG. PULM: CTA b/l, no WRR, no accessory muscles used ABD: soft, nontender, nondistended, normal BS EXTREMITIES: Allevyn bandage on left elbow and right knee clean, intact, unsaturated with signature and date. Gauze wrapped around right elbow without surrounding erythema, pain with palpation, warmth. Multiple 1cm biopsy sites on bilateral toes, healing, without surrounding skin changes or signs of infection. No edema, normal ROM NEURO: no gross focal neuro deficits IMAGING: (09/14) CT cervical spine without contrast No acute findings in the cervical spine. (09/14)x-ray bilateral elbow No fracture or dislocation. (09/14) CT head without contrast 1. No acute intracranial pathology. 2. Chronic findings, as above. (09/14) x-ray ribs, left No evidence of left rib fracture. Stable chronic findings in the lungs. A/P: Raúl is a 76-year-old male w/ history of orthostatic hypotension, ESRD on HD T/R/Sat, CAD s/p CABG who presents with worsening dizziness and frequent falls and found to have positive orthostasis now with overall improved symptoms. #Dizziness 2/2 orthostasis most likely 2/2 autonomic dysfunction BP this a.m. 94/41 while supine. Orthostatics had not been taken prior to evaluation this morning. Orthostatics from 09/16: BP 133/55 (supine), BP 103/49 (sitting), BP 97/46 (standing) Continue midodrine 10mg 3 times daily Of note, patient recently hospitalized 09/03-09/04 for orthostatic hypotension. He tells me he had an improved symptoms upon discharge. When reviewing patient's chart and recent hospitalization, patient's hospital course and management is unclear. Patient was found to have positive orthostatics on admission 09/14 and, with approval from nephrology, patient's midodrine was increased to 5 mg 3 times daily. He remained symptomatic with positive orthostatics and his midodrine was again increased to 10 mg 3 times daily. #Frequent falls 2/2 dizziness and deconditioning Imaging, noted above Continue PT/OT #Hypomagnesemia, acute, asxresolved (09/17) Mg2+ 2.2 Continue to monitor labs daily. Patient is scheduled to receive HD T/R/Sat. Of note, patient was found to have asx hypomagnesemia on 09/16 with Mg2+ 1.7 following HD 09/15. He received 1 mag run and responded adequately. #ESRD on HD T/R/Sat- stable (09/17) BUN 20, CR 3.41, which is at patient's baseline Patient is scheduled to receive dialysis this afternoon, as per schedule. Nephrology on consult, appreciate recommendations Of note, patient began HD during hospitalization 04/27-05/06 rhabdomyolysis 2/2 fall and dehydration 2/2 acute C. difficile colitis. The patient has been in and The hospital with multiple admissions since then, most recently 09/03- 09/04 for orthostatic hypotension for which he was discharged on midodrine. According to patient's nurse, his dialysis session has decreased from 3.5 hours to just over 3 hours. #A. fib, chronic-stable HR 62 this a.m. Patient found to have regular rhythm on examination. On telemetry Continue metoprolol 12.5 mg daily Continue home apixaban 2.5 mg twice daily #Anemia of chronic disease, 2/2 ESRD, chronic stable (09/17) Hgb 9, Hct 27.4, which is at patient's baseline As per nephrology, patient is stable and at his baseline. No intervention necessary at this time. Nephrology on consult, appreciate recommendations #Leukocytosis without LA- resolved Continue to monitor labs Of note, patient was found to have WBC 12.1, LA 1.7 upon admission. #CAD s/p CABG-stable Most recent echocardiogram (04/2021) LVEF 50-55% Continue atorvastatin 20 mg #BPH, chronicstable Hold home tamsulosin, pending clinical improvement #Hypothyroidism, chronicstable Continue home levothyroxine 88 mcg #Anxiety/depression, chronicstable Continue home sertraline 50 mg #DVT Prophylaxis Continue apixaban 2.5 mg twice daily DIET: Renal ACTIVITY: As tolerated, fall precautions DISPO: Home, pending clinical improvement Attending Attestation: I saw and evaluated the patient. I agree with the finding and the plan of care as documented in the residents note. VS,Fishbone, I+O VS, Fishbone, I+O Laboratory Tests 09/17/21 05:23 Vital Signs Date Time Temp Pulse Resp B/P (MAP) Pulse Ox O2 Delivery O2 Flow Rate FiO2 09/17/21 08:03 62 94/41 09/16/21 22:00 97.7 18 93 Room Air I&O- Last 24 Hours up to 6 AM 09/17/21 06:00 Intake Total 920 ml Output Total 50 ml Balance 870 ml Ania Galdamez DO Sep 17, 2021 09:47 ARTHUR SMITH MD Sep 18, 2021 06:30
[2021-09-17 10:30] VITALS: BP_SYST 119; BP_SYST 124; BP_SYST 88; BP_DIAS 51; BP_DIAS 57; BP_DIAS 59
[2021-09-17 15:30] VITALS: BP 132/56
[2021-09-17] MEDS ORDERED: DOCUSATE SODIUM 100MG CAPSULE PO PRN (17:05)
[2021-09-17] MEDS: LACTOBACILLUS ACIDOPHILUS CAP (BACID) PO SCH (17:55)
--- NOTE | 2021-09-17 17:55 | IPN ---
PROGRESS NOTE DATE: 09/17/2021 Mr. Gomez is seen this morning on his bedside. He is feeling somewhat better. He still has orthostatic hypotension; however, his symptoms are improving. His midodrine dose has been increased to 10 mg three times a day. We have also not removed any fluid with dialysis so far. PHYSICAL EXAMINATION: Temperature 97.7 degrees Fahrenheit, heart rate 62 per minute, respiratory rate 18 per minute, blood pressure 133/55 mmHg supine and 103/49 mmHg sitting. Oxygen saturation is 93% on room air. Head is atraumatic. Neck supple and without jugular venous distention (JVD) or thyroid enlargement. Heart sounds are regular, and lungs sound clear to auscultation. Abdomen soft and nontender, and bowel sounds are normal. Extremities without any cyanosis or clubbing. Hemodialysis catheter is intact on right upper chest. Neurologically he is grossly intact. Today's labs show WBC count 10.3, hemoglobin 9.0, hematocrit 27.4. Sodium 135, potassium 3.9, CO2 of 29, BUN 20, and creatinine 3.4. Glucose 82 and calcium 8.2. PROBLEMS: 1. End-stage renal disease. Patient is regularly dialyzed on Tuesday, , Tuesday schedule. He is due for dialysis today and will be dialyzed this afternoon. 2. Orthostatic hypotension. This is a chronic issue and still persists, though slightly improved. His midodrine dose has been increased to 10 mg three times a day. We will not remove any fluid even today with dialysis. His volume still seems well compensated. 3. Anemia. His anemia has been mild and stable. No urgent intervention is needed. We will continue to manage his anemia at outpatient dialysis clinic. DISPOSITION I feel that patient is going to be ready for discharge in next 24 hours, and then he can followup as an outpatient.
[2021-09-17 22:00] VITALS: BP 140/54
[2021-09-17] MEDS: SERTRALINE HCL 25 MG TABLET PO SCH (22:07)
[2021-09-17] MEDS: ATORVASTATIN 20 MG TAB PO SCH (22:07)
[2021-09-18 06:00] VITALS: BP 124/52
[2021-09-18 06:36] LABS: BASO # 0.1 10^3/uL (0.0-0.2); BASO % 0.7 % (0.0-1.0); EOS # 0.2 10^3/uL (0.0-0.5); EOS % 2.5 % (0.0-3.0); HEMATOCRIT 27.4 % (42.0-52.0); LYMPH # 1.2 10^3/uL (1.5-5.0); LYMPH % 12.7 % (24.0-44.0); MEAN CORPUSCULAR HEMOGLOBIN 30.8 pg (27.0-33.0); MEAN CORPUSCULAR HGB CONC 32.8 g/dl (32.0-36.5); MEAN CORPUSCULAR VOLUME 93.8 fl (80.0-96.0); MONO % 10.3 % (2.0-8.0); NEUTROPHILS % 72.8 % (36.0-66.0); PLATELET COUNT, AUTOMATED 203 10^3/uL (150-450); RED BLOOD COUNT 2.92 10^6/uL (4.30-6.10); WHITE BLOOD COUNT 9.7 10^3/uL (4.0-10.0)
[2021-09-18] MEDS: LEVOTHYROXINE 88MCG TABLET (0.088 MG) PO SCH (07:02)
[2021-09-18 07:10] LABS: CREATININE FOR GFR 2.27 MG/DL (0.70-1.30); GLOMERULAR FILTRATION RATE 29.9 (>42); POTASSIUM SERUM 4.2 MEQ/L (3.5-5.1)
[2021-09-18] MEDS: METOPROLOL TART 12.5 MG PER 1/2 TAB PO SCH (09:00)
[2021-09-18] MEDS: FINASTERIDE 5 MG TAB PO SCH (10:26)
[2021-09-18] MEDS: APIXABAN 2.5 MG TAB (ELIQUIS) PO SCH (10:26)
[2021-09-18] MEDS: FOLIC ACID 1 MG TAB PO SCH (10:26)
[2021-09-18] MEDS: MIDODRINE 5 MG TAB PO SCH ×3 (10:26→15:57)
[2021-09-18] MEDS: LACTOBACILLUS ACIDOPHILUS CAP (BACID) PO SCH (10:26)
--- NOTE | 2021-09-18 12:22 | IPN ---
PROGRESS NOTE DATE: 09/18/2021 SUBJECTIVE: Mr. Gomez is seen this morning on his bedside. He is feeling better and tolerating his dialysis well. He remains somewhat orthostatic hypotensive. This is a chronic issue and he has been on Midodrine 10 mg t.i.d. He denies any nausea, vomiting, dyspnea or chest pain. OBJECTIVE: VITAL SIGNS: Temperature is 98.3 degrees Fahrenheit, heart rate is 62 per minute and respiratory rate is 16 per minute, blood pressure is 124/52 mmHg and oxygen saturation 97% on room air. HEAD: Atraumatic. NECK: Supple without JVD or thyroid enlargement. HEART: Heart sounds are regular. LUNGS: Clear to auscultation. ABDOMEN: Soft and nontender. Bowel sounds are normal. EXTREMITIES: Without any cyanosis or clubbing. NEUROLOGIC: He is awake, alert and oriented x3. LABORATORY DATA: Today's labs showed a WBC of 9.7, hemoglobin 9.0 and hematocrit 27.4. Sodium is 137, potassium is 4.2, BUN 12 and creatinine 2.27. PROBLEMS: 1. Endstage renal disease. Patient was dialyzed yesterday and he tolerated it well. His next dialysis can be done as an outpatient tomorrow. 2. Orthostatic hypotension, this is a chronic issue and his Midodrine dose has been optimized with 10 mg t.i.d. that he should continue as an outpatient. 3. Anemia, his anemia is stable and does not need any urgent intervention. This will be managed with dialysis in the outpatient clinic. 4. Disposition: From a renal standpoint, the patient can be discharged to home today and he should come to the outpatient dialysis clinic at his regular time tomorrow.
[2021-09-18] MEDS ORDERED: MIDO5TA PO (13:53)
--- NOTE | 2021-09-18 16:02 | DS.PDOC ---
Discharge Summary General Date of Admission Sep 16, 2021 at 19:24 Date of Discharge 09/18/21 Attending Physician: ARTHUR SMITH MD Specialist/Consultants Involve: SERGO MARINELLI MD @ Discharge Summary PROCEDURES PERFORMED DURING STAY: None ADMITTING DIAGNOSES: 1. Dizziness 2/2 orthostasis 2. Leukocytosis without LA 3. ESRD on HD T/R/Sat DISCHARGE DIAGNOSES: 1. Dizziness 2/2 orthostasis most likely 2/2 autonomic dysfunction 2. Frequent falls 2/2 dizziness and deconditioning 3. ESRD on HD T/R/Sat COMPLICATIONS/CHIEF COMPLAINT: Orthostatic Hypotension. HISTORY OF PRESENT ILLNESS: Raúl Gomez is a 76 year old male with CAD s/p CABG and ESRD on dialysis T,,Tue who is here with dizziness s/p fall. Pt reports he has dizziness at times and he was recently admitted in earlier August for dizziness and was found to be orthostatic. He reports improvement in dizziness following discharge, but worsening dizziness despite slow position changes over the past 2 days. He endorses falling yesterday night and again this AM. He describes feeling so poorly, he laid in bed the rest of the day and because of this, his called EMS. Denies spence, sinus congestion, sore throat, productive cough, sob, palpitations, chest pain, n/v/d, abdominal pain, sensory changes or syncope. Patient was recently started on midodrine earlier in August; he reports he has been compliant with this medication. In the ED, initial labs with leukocytosis 12.1, Cr 4.3/ k 3.1. LA 1.7. Pt afebrile and not tachycardic. Orthostatic VS taken and found to be positive. Imaging nonacute CT head/ cspine, as noted below. Rib xray nonacute and no acute lung infiltrate identified, as noted below. Patient was given a small fluid bolus of 500mL with little improvement. Patient will be admitted for further evaluation and management of presenting concerns. HOSPITAL COURSE: Of note, patient began HD during hospitalization 04/27-05/06 rhabdomyolysis 2/2 fall and dehydration 2/2 acute C. difficile colitis. The patient has been in and out of the hospital with multiple admissions since then, most recently 09/03-09/04 for orthostatic hypotension for which he was discharged home on midodrine. According to patient's nurse, his dialysis session has decreased from 3.5 hours to just over 3 hours. Patient tells me he had improved symptoms following his recent hospitalization for orthostatic hypotension however, when reviewing patient's chart and recent hospitalization, patient's hospital course and management is unclear. Upon this admission, patient was found to have positive orthostatics 09/14 and, with approval from nephrology, patient's midodrine was increased to 5 mg 3 times daily. He remained symptomatic with positive orthostatics and his midodrine was again increased 09/16 to 10 mg 3 times daily, to which patient tolerated well. Patient's tamsulosin held throughout hospitalization, given orthostatic hypotension. Patient was advised to continue slow repositioning to avoid dizziness and imbalance. He was seen and evaluated by PT/OT and cleared for home with services. With regards to his ESRD, nephrology (Dr. Kraig Marinelli) was consulted upon admission. Patient received dialysis 09/15 and 09/17 without any complications. He was advised to resume outpatient dialysis, as per schedule. Additional chronic comorbidities including A. fib, anemia of chronic disease, CAD s/p CABG, BPH, hypothyroidism, anxiety/depression remained stable and uncomplicated throughout hospitalization. Patient was found to be stable and medically optimized for discharge. DISCHARGE MEDICATIONS: Please see below. ALLERGIES: Please see below. PHYSICAL EXAMINATION ON DISCHARGE: VITAL SIGNS: Please see below. GENERAL: Alert, awake, laying in bed, NAD HEENT: NC/AT, EOMI, nares patent, moist mucous membranes NECK: Supple CARDIOVASCULAR EXAMINATION: Regular rate, irregular rhythm, normal heart sounds, no murmurs RESPIRATORY EXAMINATION: CTA bilaterally, no WRR, no accessory muscles used ABDOMINAL EXAMINATION: Soft, nontender, nondistended EXTREMITIES: No edema, 2+ PT pulses, normal ROM SKIN: Allevyn bandage on left elbow/right elbow signed and dated, intact, clean, with minimal saturation. Allevyn bandage on right knee signed and dated, clean, intact, unsaturated. No new rashes/abrasions/wounds NEUROLOGICAL EXAMINATION: No new focal neuro deficits PSYCHIATRIC EXAMINATION: No depressed/anxious mood LABORATORY DATA: Please see below. IMAGING: (09/14) CT cervical spine without contrast No acute findings in the cervical spine. (09/14)x-ray bilateral elbow No fracture or dislocation. (09/14) CT head without contrast 1. No acute intracranial pathology. 2. Chronic findings, as above. (09/14) x-ray ribs, left No evidence of left rib fracture. Stable chronic findings in the lungs. PROGNOSIS: Fair ACTIVITY: As tolerated, fall precautions DIET: Renal DISCHARGE PLAN: 1. F/u PCP 2. F/u Nephrology DISPOSITION: home w/ services DISCHARGE INSTRUCTIONS: 1. Dizziness 2/2 orthostasis most likely 2/2 autonomic dysfunction Continue midodrine 10 mg 3 times daily D/c Tamsulosin F/u PCP 2. Frequent falls 2/2 dizziness and deconditioning Continue home PT 3. ESRD on HD T/R/Sat Continue HD, as per schedule F/u Nephrology, as per schedule ITEMS TO FOLLOWUP ON ON OUTPATIENT: 1. PCP- orthostasis, midodrine med change, tamsulosin med change 2. Nephrology HD, as per schedule DISCHARGE CONDITION: Stable TIME SPENT ON DISCHARGE: 35 minutes. Attending Attestation: I personally performed the physical exam and medical decision making and discussed the management with the medical student. I reviewed the medical student's note and I hereby verify the history, physical exam, and medical decision-making documented by the medical student, the documented findings, and plan of care. Vital Signs/I&Os Vital Signs Date Time Temp Pulse Resp B/P (MAP) Pulse Ox O2 Delivery O2 Flow Rate FiO2 09/18/21 06:00 98.3 62 16 124/52 (76) 97 Room Air I&O- Last 24 Hours up to 6 AM 09/18/21 06:00 Intake Total 1140 ml Output Total 650 ml Balance 490 ml Laboratory Data Labs 24H Laboratory Tests 2 09/18/21 05:50: Immature Granulocyte % (Auto) 1.0, Neutrophils (%) (Auto) 72.8H, Lymphocytes (%) (Auto) 12.7L, Monocytes (%) (Auto) 10.3H, Eosinophils (%) (Auto) 2.5, Basophils (%) (Auto) 0.7, Neutrophils # (Auto) 7.0, Lymphocytes # (Auto) 1.2L, Monocytes # (Auto) 1.0H, Eosinophils # (Auto) 0.2, Basophils # (Auto) 0.1, Nucleated Red Blood Cells % (auto) 0.0, Anion Gap 4L, Glomerular Filtration Rate 29.9L, Calcium Level 9.0 CBC/BMP Laboratory Tests 09/18/21 05:50 Microbiology Microbiology 09/14/21 Blood Culture - Preliminary, Resulted No Growth after 72 hours. All specime... Discharge Medications Scheduled Apixaban (Eliquis) 2.5 Mg Tablet, 2.5 MG PO BID, (Reported) Atorvastatin Calcium (Atorvastatin Calcium) 20 Mg Tablet, 20 MG PO QHS, (Reported) Ergocalciferol (Vitamin D2) (Drisdol) 1,250 Mcg Capsule, 50,000 UNIT PO QWEEK, (Reported) TUESDAYS Finasteride (Finasteride) 5 Mg Tablet, 5 MG PO DAILY, (Reported) Folic Acid (Folic Acid) 1 Mg Tablet, 1 MG PO DAILY, (Reported) Levothyroxine Sodium (Levoxyl) 88 Mcg Tab, 88 MCG PO DAILY, (Reported) Metoprolol Tartrate (Metoprolol Tartrate) 25 Mg Tablet, 12.5 MG PO DAILY, (Reported) Midodrine HCl (Midodrine HCl) 5 Mg Tablet, 10 MG PO 08,12,16 Sertraline HCl (Sertraline HCl) 25 Mg Tablet, 50 MG PO QHS, (Reported) Scheduled PRN Albuterol Sulfate (Proair Hfa) 8.5 Gm Hfa.aer.ad, 2 PUFF INH Q4H PRN for SHORTNESS OF BREATH, (Reported) Allergies Coded Allergies: No Known Allergies (Verified , 08/01/18) Ania Galdamez DO Sep 18, 2021 16:02 ARTHUR SMITH MD Sep 19, 2021 06:41
== END 2021-09-18 17:33 | disposition home health service (06) | DRG 73 ==
LOC: M ED 16:07 → M ED INP 16:08 → M MSPAV 23:49 → OBSVTOIN 09-16 19:24
PROVIDERS: ADMIT Family Medicine; ATTEND Internal Medicine
DX: G90.9 Disorder of the autonomic nervous system, unspecified (principal); N18.6 End stage renal disease; I13.11 Hypertensive heart and chronic kidney disease without heart failure, with stage 5 chronic kidney disease, or end stage renal disease; I48.20 Chronic atrial fibrillation, unspecified; N02.8 Recurrent and persistent hematuria with other morphologic changes; N25.81 Secondary hyperparathyroidism of renal origin; R42 Dizziness and giddiness; I25.10 Atherosclerotic heart disease of native coronary artery without angina pectoris; Z95.5 Presence of coronary angioplasty implant and graft; Z99.2 Dependence on renal dialysis; R29.6 Repeated falls; Z79.01 Long term (current) use of anticoagulants; Z79.899 Other long term (current) drug therapy; I35.0 Nonrheumatic aortic (valve) stenosis; D63.1 Anemia in chronic kidney disease; Z87.891 Personal history of nicotine dependence; Z20.822 Contact with and (suspected) exposure to COVID-19; N20.0 Calculus of kidney; F41.9 Anxiety disorder, unspecified; I95.1 Orthostatic hypotension; F32.A Depression, unspecified; E83.42 Hypomagnesemia; D72.829 Elevated white blood cell count, unspecified